=== PATIENT | male | born 1985 | race African-American/Black ===

== ENCOUNTER 2024-09-01 07:05 | Inpatient (IN) | payer MEDICARE, MEDICAID ==
[2024-09-01] VITALS (18 sets, daily range): BP systolic 106–149; BP diastolic 60–101; PULSE 82–130; RESP 18–24; TEMP 99.8–100; O2SAT 89–95
[~2024-09-01] VITALS: Ht 182.9 cm; Wt 126.1 kg
--- NOTE | 2024-09-01 07:24 | ED.PDOC ---
SOB-HPI HPI Comments 38Y M presents to ED via EMS for chief complaint SOB that began this morning. Additional symptom includes cough that has been present for a few days. When EMS arrived on scene, pt's O2 sat was 52% on RA but EMS believes there was an error as pt was behaving appropriately. Pt was placed on 15L/min of O2, provided one breathing treatment, and then placed on 8L/min of O2. Highest O2 sat EMS was able to obtain was 88%. Upon EMS examination, they noted respiratory wheezing and warm skin. Pt is tachycardic as well with HR 139. Chief Complaint: Shortness of Breath Time Seen by MD: 07:08 Primary Care Provider: unknown Reviewed notes: Manager Intensive Care Notes, Medications, Allergies Information Source: Patient, Relative (Mother), Emergency Med Personnel Mode of Arrival: EMS Brought in by: EMS Severity: Moderate Timing: Hours Duration: Since onset Context: At Rest PE Risk Factors: None History of: None Prehospital treatment: Breathing Tx, Oxygen Modifying Factors: Nothing Associated Signs and Symptoms: Other Past Medical History PAST MEDICAL HISTORY: Unknown Surgical History: Denies all surgeries Family History Family History: Unknown Social History Smoker: Non-Smoker Alcohol: Denies ETOH Use Drugs: Denies Drug Use Lives In: Home Constitutional: denies: chills, diaphoresis, fatigue, fever, malaise, sweats, weakness, others EENTM: denies: blurred vision, double vision, ear bleeding, ear discharge, ear drainage, ear pain, ear ringing, eye pain, eye redness, hearing loss, mouth pain, mouth swelling, nasal discharge, nose bleeding, nose congestion, nose pain, photophobia, tearing, throat pain, throat swelling, voice changes, others Respiratory: reports: cough, shortness of breath, wheezing; denies: hemoptysis, orthopnea, SOB at rest, SOB with excertion, stridor, others Cardiovascular: denies: chest pain, dizzy spells, diaphoresis, Dyspnea on exertion, edema, irregular heart beat, left arm pain, lightheadedness, palpitations, PND, syncope, others Gastrointestinal: denies: abdomen distended, abdominal pain, blood streaked bowels, constipated, diarrhea, dysphagia, difficulty swallowing, hematemesis, melena, nausea, poor appetite, poor fluid intake, rectal bleeding, rectal pain, vomiting, others Genitourinary: denies: burning, dysuria, flank pain, frequency, hematuria, incontinence, penile discharge, penile sore, pain, testicle pain, testicle swelling, urgency, others Neurological: denies: dizziness, fainting, headache, left sided numbness, left sided weakness, numbness, paresthesia, pre-existing deficit, right sided numbness, right sided weakness, seizure, speech problems, tingling, tremors, weakness, others Musculoskeletal: denies: back pain, gout, joint pain, joint swelling, muscle pain, muscle stiffness, neck pain, others Integumetry: denies: bruises, change in color, change in hair/nails, dryness, laceration, lesions, lumps, rash, wounds, others Allergic/Immunocompromised: denies: Difficulty Healing, Frequent Infections, Hives, Itching, others Hematologic/Lymphatic: denies: anemia, blood clots, easy bleeding, easy bruising, swollen glands, others Endocrine: denies: excessive hunger, excessive sweating, excessive thirst, excessive urination, flushing, intolerance to cold, intolerance to heat, unexplained weight gain, unexplained weight loss, others Psychiatric: denies: anxiety, bipolar disorder, depression, hopeless, panic disorder, schizophrenia, sleepless, suicidal, others All Other Systems: Reviewed and Negative Physical Exam General Appearance: Moderate Distress, Obese HEENT: Normal ENT Inspection, Pharynx Normal, TMs Normal Neck: Full Range of Motion, Non-Tender, Normal, Normal Inspection Respiratory: Accessory Muscle Use, Respiratory Distress, Other (Coarse breath sounds) Cardiovascular: No Edema, No JVD, No Murmur, No Gallop, Normal Peripheral Pulses, Tachycardia Breast Exam: Deferred Gastrointestinal: No Organomegaly, Non Tender, No Pulsatile Mass, Normal Bowel Sounds, Soft Genitalia: Deferred Pelvic: Deferred Rectal: Deferred Extremities: No calf tenderness, Normal capillary refill, Normal inspection, Normal range of motion, Non-tender, No pedal edema Musculoskeletal : Apperance: Normal Neurologic: Alert, surgical garment fitter II-XII nml as Tested, No Motor Deficits, Normal Affect, Normal Mood, No Sensory Deficits Cerebellar Function: NOT DONE Reflexes: NOT DONE Skin: Dry, Normal Color, Warm Peripheral Pulses: 3+ Radial (R), 3+ Radial (L) Lymphatic: No Adenopathy Was a procedure done? Was a procedure done?: Yes Sedation Sedation?: Yes Informed consent obtained: Yes Sedation start time: 12:40 Sedation end time: 12:55 Sedation total time: 15min Intubation Indication: Respiratory Insufficiency Prep: Preoxygenation Pretreated with: Analgesia, Sedation Medicated with: Vecuronium Intubation Approach: Orotracheal Intubation size: cm (8) Differential Dx Differential Diagnosis: Anxiety, Asthma, Bronchitis, CHF, COPD, Pneumonia, URI X-Ray, Labs, Meds, VS Vital Signs Date Time Temp Pulse Resp B/P (MAP) Pulse Ox O2 Delivery O2 Flow Rate FiO2 09/01/24 10:06 120/80 09/01/24 10:00 127/85 09/01/24 10:00 127/85 09/01/24 10:00 108 30 127/85 (99) 95 09/01/24 07:57 91 Non-Rebreather 15 91 91 09/01/24 07:55 99.8 131 30 112/55 (74) 91 99.8 09/01/24 07:45 112/55 09/01/24 07:32 22 95 Non-Rebreather 15 N/A 09/01/24 07:11 140 20 137/83 (101) 88 Lab Test 09/01/24 09:45 09/01/24 08:00 09/01/24 07:55 09/01/24 07:40 Range/Units Blood Gas Specimen Type Arterial Arterial Blood Gas Sample Site Right radial Left radial Blood Gas Patient Temperature 37.0 37.0 Arterial Blood Date Drawn [id number] Arterial Blood pH 7.331 L 7.272 L 7.350-7.450 Arterial Blood Partial Pressure CO2 64.3 *H 69.7 *H 35.0-48.0 mmHg Arterial Blood Partial Pressure O2 57.5 L 65.9 L 83.0-108.0 mmHg Arterial Blood HCO3 33.2 H 31.4 H 21.0-28.0 mmol/L Arterial Blood Oxygen Saturation 88.9 L 90.9 L 94.0-98.0 % Arterial Blood Base Excess 4.6 H 2.0 -2.0-3.0 mmol/L Arterial Blood Oxyhemoglobin 86.1 L 87.5 L 94.0-98.0 % Arterial Blood Carboxyhemoglobin 2.4 H 3.0 H 0.5-1.5 % Arterial Blood Methemoglobin 0.7 0.7 0.0-1.5 % Clinton Test Yes Yes Blood Gas Total Hemoglobin 17.50 16.70 13.5-17.5 g/dL Blood Gas Set Respiration Rate 12.0 Blood Gas Modality Mask - bipap Mask - simple FiO2 % 70.0 60.0 Blood Gas EPAP 7 Blood Gas IPAP 18 Blood Gas Critical Value Read Back Yes Yes Blood Gas Notified Whom Dr. adonay romero Blood Gas Notified Time [id number] Blood Gas Notified By Manager Net mickie vazquez Manager Net [facility] Influenza Type A Antigen Negative Negative Influenza Type B Antigen Negative Negative SARS-CoV-2 Antigen (Rapid) Negative NEGATIVE White Blood Count 8.1 4.4-10.8 10^3/uL Red Blood Count 5.17 4.5-5.90 10^6/uL Hemoglobin 15.9 13.5-17.5 g/dL Hematocrit 48.2 41.0-53.0 % Mean Corpuscular Volume 93.3 80.0-100.0 fL Mean Corpuscular Hemoglobin 30.8 28.0-32.0 pg Mean Corpuscular Hemoglobin Concent 33.0 32.0-36.0 g/dL Red Cell Distribution Width 14.5 H 11.8-14.3 % Platelet Count 174 140-450 10^3/uL Mean Platelet Volume 8.9 6.9-10.8 fL Neutrophils (%) (Auto) 68.8 37.0-80.0 % Lymphocytes (%) (Auto) 16.6 10.0-50.0 % Monocytes (%) (Auto) 14.1 H 0.0-12.0 % Eosinophils (%) (Auto) 0.2 0.0-7.0 % Basophils (%) (Auto) 0.3 0.0-2.0 % Neutrophils # (Auto) 5.6 1.6-8.6 10 ^3/uL Lymphocytes # (Auto) 1.3 0.4-5.4 10 ^3/uL Monocytes # (Auto) 1.1 0-1.3 10 ^3/uL Eosinophils # (Auto) 0 0-0.8 10 ^3/uL Basophils # (Auto) 0 0-0.2 10 ^3/uL Nucleated Red Blood Cells 0.1 % Sodium Level 136 136-145 mmol/L Potassium Level 3.9 3.5-5.1 mmol/L Chloride Level 100 98-107 mmol/L Carbon Dioxide Level 31 20-31 mmol/L Anion Gap 5 5-15 Blood Urea Nitrogen 6 L 9-23 mg/dL Creatinine 1.12 0.700-1.30 mg/dL Glomerular Filtration Rate Calc 87 >90 mL/min BUN/Creatinine Ratio 5.4 L 10.0-20.0 Serum Glucose 130 H 74-106 mg/dL Calcium Level 8.7 8.7-10.4 mg/dL B-Type Natriuretic Peptide 11.17 0-100 pg/mL Blood Gas Liter Flow 8.00 Current Medications Medications (Trade) Dose Ordered Sig/Felicitas Route Start Time Stop Time Status Last Admin Methylprednisolone Sodium Succinate (Solu Medrol) 125 mg ONCE ONCE IV 09/01/24 07:30 09/01/24 07:31 DC 09/01/24 07:45 Furosemide (Lasix Injection) 40 mg ONCE ONCE IV 09/01/24 07:30 09/01/24 07:31 DC 09/01/24 07:45 Albuterol (Ventolin Medneb) 5 mg ONCE ONCE NEB 09/01/24 07:30 09/01/24 07:31 DC 09/01/24 07:32 Ipratropium [place] (Atrovent Medneb) 0.5 mg ONCE ONCE NEB 09/01/24 07:30 09/01/24 07:31 DC 09/01/24 07:32 Ceftriaxone Sodium 50 ml @ 100 mls/hr ONCE ONCE IV 09/01/24 07:45 09/01/24 08:14 DC 09/01/24 07:45 Azithromycin 250 ml @ 125 mls/hr ONCE ONCE IV 09/01/24 07:45 09/01/24 09:44 DC 09/01/24 07:[address] [address] Ph: [phone] DIAGNOSTIC IMAGING Diagnostic Imaging Report : [id number] Signed PATIENT: MAGGIE MOFFETT DACCT: [id number] UNIT: [id number] : 1985 LOC: ER ROOM / BED: / AGE / SEX: 38 / M ADM STATUS: REG ER SERVICE 8 ORDERING PHYSICIAN: ÁNGEL ROMERO MD PROCEDURE(s): CXRP - CHEST PORTABLE REASON: sob ORDER NUMBER(s): [id number], ACCESSION NUMBER(s): [id number] CHEST RADIOGRAPH Indication: sob Technique: Single frontal view of the chest was obtained Comparison: None FINDINGS: Lines and Tubes: None Lungs: Right basilar opacity. Prominent interstitial opacities. Pleura: No effusion. No pneumothorax. Cardiomediastinal contours: Unremarkable Bones: No acute osseous abnormality. IMPRESSION: Patchy right basilar opacity which may represent atelectasis or pneumonia. Bilateral interstitial opacities which may reflect pulmonary congestion. ATED BY: LEE OAKLEY MD DICTATED DATE/TIME: 09/01/24924 SIGNED BY: LEE OAKLEY MD SIGNED DATE/TIME: 09/01/24924 CC: Patient alert. Complaining of shortness a breath. Placed on oxygen. Tachycardia. Using accessory muscles. Difficult get a history from the patient. Possible inflammation of the lungs causing shortness of breath. Was given steroid. Was given Lasix. Reviewed his history. Explained to the patient. Continue cardiac monitoring. Time of 1ST Reevaluation: 07:38 Reevaluation 1ST: Unchanged Patient Education/Counseling: Diagnosis, Treatment Family Education/Counseling: No Family Present Additional Information The following tests were ordered, and results were reviewed by me: CBC, BMP, BNP, CXR, ABG Additional Information was gathered from interviewing the following independent historians: EMS, mother I reviewed and agreed with the following test results read by other providers: CXR I discussed treatment and results with medical personnel and hospitalist. Departure 1 Departure Time of Disposition: 07:33 Impression: Primary Impression: Acute respiratory failure Qualified Codes: J96.01 - Acute respiratory failure with hypoxia Additional Impression: Pneumonitis Disposition: ADMITTED INPATIENT Admit to: Med Surg Condition: Guarded Critical Care Note Critical Care Time?: Yes (90 min-critical care time only) Stability Stability form required: No Heart Score Heart Score: Heart Score Response (Comments) Value History N/A 0 EKG N/A 0 Age N/A 0 Risk Factors N/A 0 Troponin N/A 0 Total 0 I personally scribed for ÁNGEL ROMERO MD ([email or web address]) on 09/01/24 at 07:24. Electronically submitted by Maria A Peter ([facility]). I personally scribed for ÁNGEL ROMERO MD ([email or web address]) on 09/01/24 at 07:42. Electronically submitted by Maria A Peter ([facility]). I personally scribed for ÁNGEL ROMERO MD ([email or web address]) on 09/01/24 at 09:03. Electronically submitted by Maria A Peter ([facility]). I personally scribed for ÁNGEL ROMERO MD ([email or web address]) on 09/01/24 at 09:34. Electronically submitted by Maria A Peter ([facility]). ÁNGEL ROMERO MD Sep 01, 2024 07:24
[2024-09-01] MEDS: IPRATROPIUM BROM 0.5 MG/2.5ML INH SOL NEB ONE (07:32)
[2024-09-01] MEDS: ALBUTEROL SULF 2.5 MG/0.5ML(0.5%) NEB SOLN NEB ONE (07:32)
[2024-09-01] MEDS: FUROSEMIDE 40 MG/4 ML VIAL IV ONE (07:45)
[2024-09-01] MEDS: cefTRIAXone 1GM/50ML D5W 50 ML IV ONE (07:45)
[2024-09-01] MEDS: AZITHROMYCIN 500MG/ 250ML 250 ML IV ONE (07:45)
[2024-09-01] MEDS: methylPREDNISolone SOD SUCC 125 MG/2 ML VL IV ONE (07:45)
[2024-09-01 08:16] LABS: Basophils # (auto) 0 10 ^3/uL (0-0.2); Basophils % (auto) 0.3 % (0.0-2.0); Eosinophils # (auto) 0 10 ^3/uL (0-0.8); Eosinophils % (auto) 0.2 % (0.0-7.0); Hematocrit 48.2 % (41.0-53.0); Hemoglobin 15.9 g/dL (13.5-17.5); Lymphocytes # (auto) 1.3 10 ^3/uL (0.4-5.4); Lymphocytes % (auto) 16.6 % (10.0-50.0); Mean Corpuscular Hemoglobin 30.8 pg (28.0-32.0); Mean Corpuscular Volume 93.3 fL (80.0-100.0); Monocytes # (auto) 1.1 10 ^3/uL (0-1.3); Monocytes % (auto) 14.1 % (0.0-12.0); Neutrophils # (auto) 5.6 10 ^3/uL (1.6-8.6); Neutrophils % (auto) 68.8 % (37.0-80.0); Nucleated Red Blood Cells % 0.1 %; Platelet Count (auto) 174 10^3/uL (140-450); Red Blood Cells 5.17 10^6/uL (4.5-5.90); Red Cell Distribution Width 14.5 % (11.8-14.3); White Blood Cell 8.1 10^3/uL (4.4-10.8)
[2024-09-01 08:19] LABS: Chloride 100 mmol/L (98-107); Potassium 3.9 mmol/L (3.5-5.1); Sodium 136 mmol/L (136-145)
[2024-09-01 08:20] LABS: Anion Gap 5 (5-15); Calcium 8.7 mg/dL (8.7-10.4)
[2024-09-01 08:36] LABS: Glucose 130 mg/dL (74-106)
[2024-09-01 08:38] LABS: Carbon Dioxide 31 mmol/L (20-31)
[2024-09-01 08:52] LABS: COVID19 ANTIGEN SOFIA FIA NEGATIVE (NEGATIVE); Rapid Influenza A Negative (Negative); Rapid Influenza B Negative (Negative)
[2024-09-01 09:03] LABS: BUN/Creatinine Ratio 5.4 (10.0-20.0); Blood Urea Nitrogen 6 mg/dL (9-23)
--- NOTE | 2024-09-01 09:28 | DVH ---
CHEST RADIOGRAPH Indication: sob Technique: Single frontal view of the chest was obtained Comparison: None FINDINGS: Lines and Tubes: None Lungs: Right basilar opacity. Prominent interstitial opacities. Pleura: No effusion. No pneumothorax. Cardiomediastinal contours: Unremarkable Bones: No acute osseous abnormality. IMPRESSION: Patchy right basilar opacity which may represent atelectasis or pneumonia. Bilateral interstitial opacities which may reflect pulmonary congestion.
[2024-09-01] MEDS: ROCURONIUM 10MG/ML 10ML VIAL IV ONE ×2 (10:00→14:18)
[2024-09-01] MEDS: MIDAZOLAM DRIP 50 mg/50mL 50 ML IV SCH ×2 (10:00→14:19)
[2024-09-01] MEDS: ETOMIDATE (2MG/ML) 20ML VIAL IV ONE ×3 (10:00→14:18)
[2024-09-01] MEDS: MIDAZOLAM DRIP 50 mg/50mL 50 ML IV ONE (10:06)
[2024-09-01] MEDS ORDERED: ONDANSETRON HCL 4 MG/2 ML VIAL IV PRN (10:30)
[2024-09-01] MEDS ORDERED: NITROGLYCERIN 0.4 MG SL TAB SL PRN (10:30)
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
[2024-09-01] MEDS: IOHEXOL 350 MG/ML 100ML IJ ONE (10:41)
[2024-09-01 11:06] LABS: Base Excess 4.6 mmol/L (-2.0-3.0)
[2024-09-01 11:16] LABS: Alanine Aminotransferase 28 U/L (7-40); Albumin 4.7 g/dL (3.2-4.8); Alkaline Phosphatase 107 U/L (46-116); Anion Gap 6 (5-15); Aspartate Aminotransferase 35 U/L (13-40); BUN/Creatinine Ratio 5.2 (10.0-20.0); Bilirubin, Total 0.3 mg/dL (0.2-1.0); Calcium 9.1 mg/dL (8.7-10.4); Carbon Dioxide 31 mmol/L (20-31); Chloride 99 mmol/L (98-107); Potassium 4.2 mmol/L (3.5-5.1); Sodium 136 mmol/L (136-145)
[2024-09-01 11:19] LABS: Blood Urea Nitrogen 6 mg/dL (9-23); Glucose 119 mg/dL (74-106)
[2024-09-01 11:25] LABS: INR 1.15 (0.9-1.15); Prothrombin Time 12.1 sec (9.3-11.8)
[2024-09-01] MEDS: fentaNYL Drip 2500mCg/250mlNS 250 ML IV ONE (13:19)
[2024-09-01] MEDS: fentaNYL Drip 2500mCg/250mlNS 250 ML IV SCH (13:47)
[2024-09-01] MEDS: IPRATROPIUM BROM 0.5 MG/2.5ML INH SOL NEB SCH (14:00)
[2024-09-01] MEDS: ALBUTEROL SULF 2.5 MG/0.5ML(0.5%) NEB SOLN NEB SCH (14:00)
[2024-09-01] MEDS: methylPREDNISolone SOD SUCC 40 MG/ML VL IV SCH (14:24)
[2024-09-01 15:13] LABS: Base Excess 4.9 mmol/L (-2.0-3.0)
--- NOTE | 2024-09-01 15:34 | DVH ---
CHEST RADIOGRAPH Indication: Central line, post intubation, NG placement Technique: Single frontal view of the chest was obtained Comparison: XY CHEST PORTABLE on DOS: 09/01/24 FINDINGS: Lines and Tubes: Endotracheal tube in place 1.9 cm above the alf. Right internal jugular catheter in place in the superior vena cava. Enteric tube below the left diaphragm Lungs: Bibasilar areas of infiltrate and small pleural effusions. Pleura: No effusion. No pneumothorax. Cardiomediastinal contours: Unremarkable Bones: No acute osseous abnormality. IMPRESSION: 1. Endotracheal tube 1.9 cm above the alf. 2. Enteric tube below the left diaphragm 3. Right internal jugular catheter in the superior vena cava. 4. Bibasilar infiltrates and small pleural effusions worse than earlier study of 09/01 2024 at 9:04 a .m..
[2024-09-01] MEDS ORDERED: VANCOMYCIN PER PHARMACY 0 MG IV SCH (15:45)
[2024-09-01] MEDS: PIPERACILLIN-TAZOB 3.375GM 100 ML IV ONE (16:04)
[2024-09-01 16:07] LABS: Base Excess 1.4 mmol/L (-2.0-3.0)
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
[2024-09-01] MEDS ORDERED: PIPERACILLIN-TAZOB 3.375GM 100 ML IV SCH (18:00)
--- NOTE | 2024-09-01 19:11 | DVHINCON2 ---
Date of service: Sep 01, 2024 Referring Physician ANAHI Montoya Reason for Consultation Ventilator management History of Present Illness 38-year-old man history of morbid obesity who presented with shortness of breath. He was tachycardic with heart rate of 139. And had bilateral respiratory wheezing. Initially EMS found to be hypoxic on the scene with a pulse oximetry reading of 52%. He later was placed on 8 liters/minute via mask after bronchodilator treatment. He was found to be retaining CO2. He had to be intubated and placed on mechanical ventilator. Pulmonary consultation is called due to acute hypercarbic respiratory failure on mechanical ventilator management. Review of systems: Unable to obtain due to patient's critical condition. Past medical history: Morbid obesity with a BMI of 44.8 Past surgical history: No prior surgeries. Medications: Reviewed Allergies: No known drug allergies. Family history: None mentioned of premature CAD. No family history of lung disease. Social history: Nonsmoker. No alcohol or illicit drug use. Lives at home. Allergies: Coded Allergies: NO KNOWN ALLERGIES (Unverified , 09/01/24) Current Medications Current Medications Medications (Trade) Dose Ordered Sig/Felicitas Route PRN Reason Start Time Stop Time Status Last Admin Midazolam HCl 50 ml @ 1 mls/hr Q24H IV 09/01/24 10:00 09/01/24 14:15 DC Albuterol (Ventolin Medneb) 2.5 mg Q4HR NEB 09/01/24 14:00 09/01/24 18:35 Ipratropium [place] (Atrovent Medneb) 0.5 mg Q4HR NEB 09/01/24 14:00 09/01/24 18:34 Methylprednisolone Sodium Succinate (Solu Medrol) 40 mg Q8HR IV 09/01/24 14:00 09/01/24 14:24 Ondansetron HCl (Zofran) 4 mg Q4HP PRN IV NAUSEA / VOMITING 09/01/24 10:30 Enoxaparin Sodium (Lovenox) 40 mg DAILY SC 09/02/24 10:00 Nitroglycerin (Ntrostat Sublingual) 0.4 mg Q5MINP PRN SL FOR CHEST PAIN 09/01/24 10:30 Fentanyl Citrate 250 ml @ 2.5 mls/hr Q24H IV 09/01/24 13:30 09/01/24 13:47 Midazolam HCl 50 ml @ 1 mls/hr Q24H IV 09/01/24 14:00 09/01/24 14:19 Vancomycin HCl 0 ml @ 0 mls/hr UD IV 09/01/24 15:45 Piperacillin Sod/ Tazobactam Sod 100 ml @ 25 mls/hr Q6HR IV 09/01/24 18:00 UNV Piperacillin Sod/ Tazobactam Sod 100 ml @ 25 mls/hr Q6H IV 09/01/24 22:00 Vancomycin HCl 350 ml @ 200 mls/hr Q12H IV 09/01/24 20:00 Vital Signs Vital Signs Date Time Temp Pulse Resp B/P (MAP) Pulse Ox O2 Delivery O2 Flow Rate FiO2 09/01/24 19:00 98 20 107/67 (80) 93 09/01/24 15:26 80 09/01/24 15:11 98.1 98.1 09/01/24 11:09 Facial BiPAP Mask 09/01/24 07:57 15 Physical Exam Gen.: Patient lying in bed in medical ICU. Sedated, intubated on mechanical ventilator. Head: Normocephalic, atraumatic. Eyes: PERRLA. Ears: Normal external anatomy. Throat: Endotracheal tube and orogastric tube in place. Neck: Supple, trachea midline. Chest: Transmitted breath sounds bilaterally. Decreased air entry bilaterally. No wheezing. Bibasilar crackles. Cardio vascular: Positive S1, positive S2. Regular rate and rhythm. Abdomen: Positive bowel sounds in all 4 quadrants. Soft, nontender, nondistended. : Spence in place. Normal external genitalia. Rectal: Deferred Skin: Warm, dry. Intact. Extremities: 2+ radial pulses bilaterally. No lower extremity edema. Neuro: Sedated. Labs/Diagnostic Data Labs Test 09/01/24 15:33 09/01/24 15:10 09/01/24 12:15 09/01/24 10:48 Range/Units Troponin I High Sensitivity 65 *H </=54 ng/L Blood Gas Specimen Type Arterial Blood Gas Sample Site Right radial Blood Gas Patient Temperature 37.0 Arterial Blood Date Drawn [id number] Arterial Blood pH 7.278 L 7.350-7.450 Arterial Blood Partial Pressure CO2 67.0 *H 35.0-48.0 mmHg Arterial Blood Partial Pressure O2 69.1 L 83.0-108.0 mmHg Arterial Blood HCO3 30.6 H 21.0-28.0 mmol/L Arterial Blood Oxygen Saturation 92.3 L 94.0-98.0 % Arterial Blood Base Excess 1.4 -2.0-3.0 mmol/L Arterial Blood Oxyhemoglobin 90.6 L 94.0-98.0 % Arterial Blood Carboxyhemoglobin 1.1 0.5-1.5 % Arterial Blood Methemoglobin 0.7 0.0-1.5 % [place] Test Modified Blood Gas Total Hemoglobin 17.60 H 13.5-17.5 g/dL Blood Gas Set Respiration Rate 20.0 Blood Gas Modality Vent - ac FiO2 % 100.0 Blood Gas Tidal Volume 550.0 Blood Gas PEEP or CPAP 5.0 Blood Gas Critical Value Read Back Yes Blood Gas Notified Whom Dr. adonay romero Blood Gas Notified Time [id number] Blood Gas Notified [facility] Blood Gas EPAP 7 Blood Gas IPAP 18 Prothrombin Time 12.1 H 9.3-11.8 sec Prothrombin Time INR 1.15 0.9-1.15 Sodium Level 136 136-145 mmol/L Potassium Level 4.2 3.5-5.1 mmol/L Chloride Level 99 98-107 mmol/L Carbon Dioxide Level 31 20-31 mmol/L Anion Gap 6 5-15 Blood Urea Nitrogen 6 L 9-23 mg/dL Creatinine 1.15 0.700-1.30 mg/dL Glomerular Filtration Rate Calc 85 >90 mL/min BUN/Creatinine Ratio 5.2 L 10.0-20.0 Serum Glucose 119 H 74-106 mg/dL Lactic Acid Level 1.1 0.4-2.0 mmol/L Calcium Level 9.1 8.7-10.4 mg/dL Magnesium Level 1.8 1.6-2.6 mg/dL Total Bilirubin 0.3 0.2-1.0 mg/dL Aspartate Amino Transferase (AST) 35 13-40 U/L Alanine Aminotransferase (ALT) 28 7-40 U/L Alkaline Phosphatase 107 46-116 U/L Total Protein 8.0 5.7-8.2 g/dL Albumin 4.7 3.2-4.8 g/dL Test 09/01/24 08:00 09/01/24 07:55 09/01/24 07:40 Range/Units Influenza Type A Antigen Negative Negative Influenza Type B Antigen Negative Negative SARS-CoV-2 Antigen (Rapid) Negative NEGATIVE White Blood Count 8.1 4.4-10.8 10^3/uL Red Blood Count 5.17 4.5-5.90 10^6/uL Hemoglobin 15.9 13.5-17.5 g/dL Hematocrit 48.2 41.0-53.0 % Mean Corpuscular Volume 93.3 80.0-100.0 fL Mean Corpuscular Hemoglobin 30.8 28.0-32.0 pg Mean Corpuscular Hemoglobin Concent 33.0 32.0-36.0 g/dL Red Cell Distribution Width 14.5 H 11.8-14.3 % Platelet Count 174 140-450 10^3/uL Mean Platelet Volume 8.9 6.9-10.8 fL Neutrophils (%) (Auto) 68.8 37.0-80.0 % Lymphocytes (%) (Auto) 16.6 10.0-50.0 % Monocytes (%) (Auto) 14.1 H 0.0-12.0 % Eosinophils (%) (Auto) 0.2 0.0-7.0 % Basophils (%) (Auto) 0.3 0.0-2.0 % Neutrophils # (Auto) 5.6 1.6-8.6 10 ^3/uL Lymphocytes # (Auto) 1.3 0.4-5.4 10 ^3/uL Monocytes # (Auto) 1.1 0-1.3 10 ^3/uL Eosinophils # (Auto) 0 0-0.8 10 ^3/uL Basophils # (Auto) 0 0-0.2 10 ^3/uL Nucleated Red Blood Cells 0.1 % B-Type Natriuretic Peptide 11.17 0-100 pg/mL Blood Gas Liter Flow 8.00 Assessment Impression: Acute hypoxic respiratory failure Acute hypercarbic respiratory failure On mechanical ventilator Pleural effusions Atelectasis Morbid obesity with a BMI of 44.8 Pulmonary edema Acute exacerbation of COPD vs Asthma Elevated troponin Plan: s/p intubation on mechanical ventilator COVID, influenza negative. CXR image and report reviewed. Endotracheal tube in place. Devices in place. Bibasilar opacities. Small pleural effusions. Atelectasis ABG reviewed. Acidemia due To CO2 retention. Recommend to obtain chest ultrasound to evaluate pleural effusions amenable for thoracentesis. On assist control with respiratory rate of 20, tidal volume 650, peep of five, FiO2 at 100%. We will obtain a stat ABG and make further changes based on ABG results. Titrate FIO2 to keep O2 saturation between 88-94%. VAP bundle Daily ABG and CXR while intubated. Sedate for ventilatory synchrony Bronchodilators IV Steroids Start pressors if necessary for hemodynamic support. On pressors for hemodynamic support. Titrate to keep MAP above 65 mmHg/SBP above 90 mmHg. F/u Echo to evaluate LVEF, RVSP and r/o valvular dysfunction. F/u Cardiology recommendations Plan for CTA of chest to r/o PE. Continue antibiotics. Zosyn/Vancomycin F/u cultures. Monitor renal function due to Acute kidney injury. Monitor electrolytes. Supplement as necessary. Nutritional support. Accucheks, ISS. Morbid obesity, complicates all care. Diet and lifestyle modifications for weight reduction recommended. GI/DVT prophylaxis. Condition: Critical Prognosis: Poor given multiple comorbidities. Rest of plan per hospitalist and other consultants. A total of 36 minutes of critical care time was spent reviewing the patient record, examining the patient, making a diagnostic and therapeutic plan, discussing this plan with the medical personnel, following up on diagnostic studies and following the patient for clinical stability excluding any and all procedures. At least 50% of this time was spent in direct, [id number] contact. Thank you ANAHI Montoya for allowing me to participate in this patient's care. Further recommendations will depend on patient's clinical course. Please do not hesitate to contact me if you have any questions or concerns. This medical document was created using an electronic medical record system with [email or web address] dictation system. Although this document has been carefully reviewed, there may still be some phonetic and typographical errors. These areas are purely typographical due to imperfections of the software programs, and do not reflect any compromise in the patient's medical care. Plan discussed with: Other (RN, RT, DE ICER INSTALLER) LIZ GUDINO MD Sep 01, 2024 19:11
[2024-09-01 19:28] LABS: Base Excess 5.6 mmol/L (-2.0-3.0)
--- NOTE | 2024-09-01 19:33 | DVH ---
Bilateral Chest Sonogram Date: 09/01/2024 07:13 PM Clinical history: eval if pleural effusion amenable to thoracentesis. Images submitted: 2 Findings: Trace right pleural effusion. No left pleural effusion. IMPRESSION: Trace right pleural effusion .
[2024-09-01] MEDS: VANCOMYCIN 1.75GM/350ML 350 ML IV SCH (20:21)
[2024-09-01] MEDS: PIPERACILLIN-TAZOB 3.375GM 100 ML IV SCH (22:16)
[2024-09-02] VITALS (67 sets, daily range): BP systolic 89–128; BP diastolic 52–77; PULSE 65–83; RESP 20; TEMP 97.7–98.6; O2SAT 88–94
[2024-09-02 03:13] LABS: Basophils # (auto) 0 10 ^3/uL (0-0.2); Basophils % (auto) 0.1 % (0.0-2.0); Eosinophils # (auto) 0 10 ^3/uL (0-0.8); Hematocrit 47.7 % (41.0-53.0); Lymphocytes # (auto) 0.6 10 ^3/uL (0.4-5.4); Mean Corpuscular Hemoglobin 31.1 pg (28.0-32.0); Mean Corpuscular Hgb Conc. 33.6 g/dL (32.0-36.0); Mean Corpuscular Volume 92.5 fL (80.0-100.0); Monocytes # (auto) 0.6 10 ^3/uL (0-1.3); Neutrophils # (auto) 13.6 10 ^3/uL (1.6-8.6); Neutrophils % (auto) 91.9 % (37.0-80.0); Nucleated Red Blood Cells % 0.1 %; Platelet Count (auto) 191 10^3/uL (140-450); Red Blood Cells 5.15 10^6/uL (4.5-5.90); Red Cell Distribution Width 14.2 % (11.8-14.3); White Blood Cell 14.8 10^3/uL (4.4-10.8)
[2024-09-02 03:28] LABS: Alanine Aminotransferase 21 U/L (7-40); Albumin 4.2 g/dL (3.2-4.8); Alkaline Phosphatase 94 U/L (46-116); Anion Gap 7 (5-15); Aspartate Aminotransferase 28 U/L (13-40); Calcium 8.9 mg/dL (8.7-10.4); Carbon Dioxide 28 mmol/L (20-31); Chloride 100 mmol/L (98-107); Potassium 3.7 mmol/L (3.5-5.1)
[2024-09-02 03:29] LABS: Bilirubin, Total 0.4 mg/dL (0.2-1.0); Glucose 168 mg/dL (74-106); Sodium 135 mmol/L (136-145); Total Protein 7.2 g/dL (5.7-8.2)
[2024-09-02 04:20] LABS: BUN/Creatinine Ratio 9.9 (10.0-20.0); Blood Urea Nitrogen 14 mg/dL (9-23)
--- NOTE | 2024-09-02 06:21 | DVH ---
CHEST RADIOGRAPH Indication: post intubation cxr Technique: Single frontal view of the chest was obtained Comparison: XY CHEST XRAY 1 VIEW on DOS: 09/01/24, XY CHEST PORTABLE on DOS: 09/01/24 FINDINGS: Lines and Tubes: There is a right central venous catheter with tip terminating in the superior vena c urmila. The endotracheal tube terminates above alf. The enteric tube courses below the left hemidiaph ragm and the tip extends outside the field of view. Lungs: Bilateral airspace consolidations, decreased. Pleura: Bilateral pleural effusions. Decreased. No pneumothorax. Cardiomediastinal contours: Unremarkable Bones: No acute osseous abnormality. IMPRESSION: 1. Bilateral pleural effusions and airspace consolidation decreased since prior study.
[2024-09-02] MEDS: ENOXAPARIN SOD 40 MG/0.4 ML SYRINGE SC SCH (09:35)
--- NOTE | 2024-09-02 11:34 | DVHPN2 ---
Consult Progress Note Date Seen: Sep 02, 2024 Subjective Other Systems: No overnight cardiac events reported Objective vital signs Vital Sign Date Time Temp Pulse Resp B/P (MAP) Pulse Ox O2 Delivery O2 Flow Rate FiO2 09/02/24 10:33 75 20 127/70 (89) 91 100 09/02/24 08:00 Mechanical Ventilator+ 09/02/24 04:00 98.1 98.1 09/01/24 07:57 15 Total Intake and Output 09/01/24 09/01/24 09/02/24 15:00 23:00 07:00 Intake Total 75 ml 850 ml 450 ml Output Total 500 ml 1100 ml Balance -425 ml 850 ml -650 ml medications Current Medications Medications Dose Ordered Sig/Felicitas Route Start Time Stop Time Status Last Admin Dose Admin Albuterol 2.5 mg Q4HR NEB 09/01/24 14:00 09/02/24 10:28 2.5 MG Ipratropium [place] 0.5 mg Q4HR NEB 09/01/24 14:00 09/02/24 10:28 0.5 MG Methylprednisolone Sodium Succinate 40 mg Q8HR IV 09/01/24 14:00 09/02/24 05:08 40 MG Ondansetron HCl 4 mg Q4HP PRN IV 09/01/24 10:30 Enoxaparin Sodium 40 mg DAILY SC 09/02/24 10:00 09/02/24 09:35 40 MG Nitroglycerin 0.4 mg Q5MINP PRN SL 09/01/24 10:30 Fentanyl Citrate 250 ml @ 2.5 mls/hr Q24H IV 09/01/24 13:30 09/01/24 13:47 2.5 MLS/HR Midazolam HCl 50 ml @ 1 mls/hr Q24H IV 09/01/24 14:00 09/02/24 09:23 15 MLS/HR Vancomycin HCl 0 ml @ 0 mls/hr UD IV 09/01/24 15:45 Piperacillin Sod/ Tazobactam Sod 100 ml @ 25 mls/hr Q6HR IV 09/01/24 18:00 UNV Piperacillin Sod/ Tazobactam Sod 100 ml @ 25 mls/hr Q6H IV 09/01/24 22:00 09/02/24 09:35 25 MLS/HR Vancomycin HCl 350 ml @ 200 mls/hr Q12H IV 09/01/24 20:00 09/01/24 20:21 200 MLS/HR Examination: LUNGS:Abnormal (Mechanically ventilated 100% FiO2), CVS:Normal (NSR. Off pressors), NEURO:Abnormal (Chemically sedated) laboratory and microbiology Laboratory Tests 09/02/24 02:27 Test 09/02/24 02:27 Range/Units Serum Glucose 168 H 74-106 mg/dL Problem List/Assessment/Plan Problem List/Assessment/Plan Sepsis with bilateral pneumonia Acute hypoxic respiratory failure secondary to above Asthma Schizophrenia Morbid obesity Plan/Recommendation (Dr. Vee) Echocardiogram revealed EF 55% with normal diastolic function. Continue Pulmonology and primary care team recommendations. We will sign off at this time. Please call if in need to re-consult. Thank you for allowing us to participate in this patient's care. This medical document was created using an electronic medical record system with voice recognition software and computerized dictation system. Although this document has been carefully reviewed, there might still be some phonetic and typographical errors. Occasional wrong-word or ``sound-alike substitutions may have occurred due to the inherent limitations of voice recognition software. These areas are purely typographical due to imperfections of the software programs and do not reflect any compromise in the patient's medical care. Please read the chart carefully and recognize, using context, where these substitutions have occurred. Plan discussed with: Other Date of Service: Sep 02, 2024 Billing Provider: AMILCAR VEE MD Cardiology Common Codes: [id number] INP/OBS CARE(Mod) PRIYANKA TRAN [facility] Sep 02, 2024 11:34
[2024-09-02 11:55] LABS: Base Excess 1.8 mmol/L (-2.0-3.0)
[2024-09-02] MEDS: FUROSEMIDE 40 MG/4 ML VIAL IV ONE (12:28)
[2024-09-02] MEDS: PROPOFOL 100 ML IV ONE (12:37)
[2024-09-02] MEDS: PROPOFOL 100 ML IV SCH (12:45)
[2024-09-02] MEDS: NOREPINEPHRINE 8 MG/250ML KIT 250 ML IV SCH (13:00)
[2024-09-02] MEDS: NOREPINEPHRINE 8 MG/250ML KIT 250 ML IV ONE (13:21)
--- NOTE | 2024-09-02 14:03 | DVH ---
BILATERAL LOWER EXTREMITY VENOUS DOPPLER CLINICAL HISTORY: rule out DVT Technique: Duplex Doppler evaluation of the deep venous systems of both lower extremities from the co mmon femoral veins to the popliteal veins including color Doppler and spectral/pulsed waveform analys is was performed. COMPARISON: None FINDINGS: The right and left common femoral, superficial femoral, popliteal, posterior tibial and peroneal vei ns appear patent with normal augmentation, phasicity, compressibility and color-flow. IMPRESSION: 1. There is no sonographic evidence for DVT in the lower extremities. HS:Y
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
[2024-09-02 14:25] LABS: Erythrocyte Sedimentation Rate 5 mm/hr (0-20)
--- NOTE | 2024-09-02 17:42 | DVHSR ---
APPROVED REPORT EXAM: Two-dimensional and M-mode echocardiogram with Doppler and color Doppler. Blood Pressure: 119/66 mmHg INDICATION Eval for cardiac function and ef RISK FACTORS Obesity: Height: 6', Weight: 330 DIMENSIONS LVDd4.5 (3.8-5.7cm)LA (2D)3.8 (1.9-4.0cm)Aortic Root3.3 (2.0-3.7cm) LVDs3.2 (2.5-4.0cm)LA (MM) (1.9-4.0cm)Aortic Cusp Exc2.0 (1.5-2.0cm) EF (%) 55.0 (55-70%)Rt. Atrium3.9 (1.9-4.0cm)Asc. Aorta cm IVSd1.1 (0.7-1.1cm)RV (D) (1.8-2.4cm) PWd1.1 (0.7-1.1cm) Mitral Valve MitralMitral Stenosis E wave0.60m/sMV Mean GR.mmHg A wave0.40m/sMV Peak GR.mmHg E/A ratio1.52D MVAcm2 Aortic Valve Aortic ValveAortic Stenosis V10.90m/[place] Mean GR.4mmHg V21.30m/[place] Peak GR.8mmHg LVOT Diameter2.2 (1.8-2.4cm)Doppler AVA2.63cm2 Pulmonic Valve V20.70m/s Conclusion Normal left ventricular size and dimension. Normal left ventricular systolic function estimated ejec tion fraction 55%. Normal diastolic function Normal right ventricular size and dimension. Normal right ventricular systolic function. Normal biatrial size and dimension. Normal aortic valve structure and function. Normal mitral valve structure and function. Normal tricuspid valve structure and function. The pulmonary valve is grossly normal. No pericardial effusion.
--- NOTE | 2024-09-02 18:25 | DVHPN2 ---
Progress Note - Dictate Date Seen: Sep 02, 2024 Medical Necessity Reason Pt with a Central, PICC or Fol: Yes The following are medically ne: Teague Catheter Reason for teague catheter: Strict I&O Subjective Patient seen and examined at bedside. Sedated, intubated on mechanical ventilator. Overnight events reviewed. vital signs Vital Sign Date Time Temp Pulse Resp B/P (MAP) Pulse Ox O2 Delivery O2 Flow Rate FiO2 09/02/24 17:00 75 20 114/60 (78) 93 09/02/24 16:30 Mechanical Ventilator+ 100 100 09/02/24 16:00 98.4 98.4 09/01/24 07:57 15 Total Intake and Output 09/01/24 09/01/24 09/02/24 15:00 23:00 07:00 Intake Total 75 ml 850 ml 500 ml Output Total 500 ml 1100 ml Balance -425 ml 850 ml -600 ml medications Current Medications Medications Dose Ordered Sig/Felicitas Route Start Time Stop Time Status Last Admin Dose Admin Albuterol 2.5 mg Q4HR NEB 09/01/24 14:00 09/02/24 14:20 2.5 MG Ipratropium [place] 0.5 mg Q4HR NEB 09/01/24 14:00 09/02/24 14:20 0.5 MG Methylprednisolone Sodium Succinate 40 mg Q8HR IV 09/01/24 14:00 09/02/24 13:51 40 MG Ondansetron HCl 4 mg Q4HP PRN IV 09/01/24 10:30 Nitroglycerin 0.4 mg Q5MINP PRN SL 09/01/24 10:30 Fentanyl Citrate 250 ml @ 2.5 mls/hr Q24H IV 09/01/24 13:30 09/02/24 10:00 35 MLS/HR Midazolam HCl 50 ml @ 1 mls/hr Q24H IV 09/01/24 14:00 09/02/24 15:45 15 MLS/HR Vancomycin HCl 0 ml @ 0 mls/hr UD IV 09/01/24 15:45 Piperacillin Sod/ Tazobactam Sod 100 ml @ 25 mls/hr Q6HR IV 09/01/24 18:00 UNV Piperacillin Sod/ Tazobactam Sod 100 ml @ 25 mls/hr Q6H IV 09/01/24 22:00 09/02/24 16:46 25 MLS/HR Enoxaparin Sodium 150 mg Q12HR SC 09/02/24 22:00 Propofol 100 ml @ 4.5 mls/hr [id number] IV 09/02/24 13:00 09/02/24 12:45 4.5 MLS/HR Norepinephrine Bitartrate 250 ml @ 3.75 mls/hr Q24H IV 09/02/24 13:00 09/02/24 13:00 3.75 MLS/HR objective Gen.: Patient lying in bed in medical ICU. Sedated, intubated on mechanical ventilator. Head: Normocephalic, atraumatic. Eyes: PERRLA. Ears: Normal external anatomy. Throat: Endotracheal tube and orogastric tube in place. Neck: Supple, trachea midline. Chest: Transmitted breath sounds bilaterally. Decreased air entry bilaterally. No wheezing. Bibasilar crackles. Cardiovascular: Positive S1, positive S2. Regular rate and rhythm. Abdomen: Positive bowel sounds in all 4 quadrants. Soft, nontender, nondistended. : Teague in place. Normal external genitalia. Rectal: Deferred. Skin: Warm, dry. Intact. Extremities: 2+ radial pulses bilaterally. No lower extremity edema. Neuro: Sedated. laboratory and microbiology Laboratory Tests 09/02/24 02:27 Test 09/02/24 02:27 Range/Units Serum Glucose 168 H 74-106 mg/dL Assessment/Plan Impression: Acute hypoxic respiratory failure Acute hypercarbic respiratory failure On mechanical ventilator Pleural effusions Atelectasis Morbid obesity with a BMI of 44.8 Pulmonary edema Acute exacerbation of COPD vs Asthma Elevated troponin Events: Remains on vent support On assist control with respiratory rate of 20, tidal volume 600, PEEP of 8, FiO2 at 100%. Will increase PEEP to 12 Sedated on Fentanyl, Versed Start Propofol Start Levophed for hemodynamic support. Titrate to keep MAP above 65 mmHg/SBP above 90 mmHg ABG reviewed, compensated. CXR reviewed, demonstrates bilateral pleural effusions, bilateral opacities Chest ultrasound revealed trace right pleural effusion Continue antibiotics Leukocytosis - WBC of 14.8 K Continue bronchodilators IV steroids Diurese w/ Lasix - Lasix 40 mg IVP x1 Monitor renal function - creatinine elevated at 1.41 Monitor electrolytes. Supplement as necessary. Labs and imaging reviewed. Rest of plan as noted below. Plan: s/p intubation on mechanical ventilator COVID, influenza negative. 09/01/24 - CXR image and report reviewed. Endotracheal tube in place. Devices in place. Bibasilar opacities. Small pleural effusions. Atelectasis ABG reviewed. Acidemia due To CO2 retention. Vent settings: Assist control with respiratory rate of 20, tidal volume 600, PEEP 8 --> 12, FiO2 at 100%. Titrate FIO2 to keep O2 saturation between 88-94%. VAP bundle Daily ABG and CXR while intubated. Sedate for ventilatory synchrony Bronchodilators IV Steroids On pressors for hemodynamic support. Titrate to keep MAP above 65 mmHg/SBP above 90 mmHg. F/u Echo to evaluate LVEF, RVSP and r/o valvular dysfunction. F/u Cardiology recommendations Plan for CTA of chest to r/o PE. Continue antibiotics. Zosyn/Vancomycin F/u cultures. Monitor renal function due to Acute kidney injury. Monitor electrolytes. Supplement as necessary. Nutritional support. Accucheks, ISS. Morbid obesity, complicates all care. Diet and lifestyle modifications for weight reduction recommended. GI/DVT prophylaxis. Condition: Critical Prognosis: Poor given multiple comorbidities. Rest of plan per hospitalist and other consultants. A total of 35 minutes of critical care time was spent reviewing the patient record, examining the patient, making a diagnostic and therapeutic plan, discussing this plan with the medical personnel, following up on diagnostic studies and following the patient for clinical stability excluding any and all procedures. At least 50% of this time was spent in direct, [id number] contact. Thank you ANAHI Montoya for allowing me to participate in this patient's care. Further recommendations will depend on patient's clinical course. Please do not hesitate to contact me if you have any questions or concerns. This medical document was created using an electronic medical record system with [employer] dictation system. Although this document has been carefully reviewed, there may still be some phonetic and typographical errors. These areas are purely typographical due to imperfections of the software programs, and do not reflect any compromise in the patient's medical care. Plan discussed with: Other (FERNANDO Rodriguez) Critical Care Time(min): 35 LIZ GUDINO MD Sep 02, 2024 18:25
[2024-09-02] MEDS: VANCOMYCIN 1.5GM/300ML 300 ML IV ONE (20:32)
[2024-09-02] MEDS: ENOXAPARIN SOD 150 MG/1 ML SYRINGE SC SCH (22:03)
[2024-09-03] VITALS (106 sets, daily range): BP systolic 107–134; BP diastolic 60–80; PULSE 65–94; RESP 14–21; TEMP 98.5–99.2; O2SAT 86–96
[2024-09-03 07:54] LABS: Base Excess -0.9 mmol/L (-2.0-3.0)
[2024-09-03 08:23] LABS: Basophils # (auto) 0.1 10 ^3/uL (0-0.2); Basophils % (auto) 0.5 % (0.0-2.0); Eosinophils # (auto) 0 10 ^3/uL (0-0.8); Eosinophils % (auto) 0.1 % (0.0-7.0); Hematocrit 50.4 % (41.0-53.0); Hemoglobin 16.4 g/dL (13.5-17.5); Lymphocytes # (auto) 0.6 10 ^3/uL (0.4-5.4); Lymphocytes % (auto) 3.6 % (10.0-50.0); Mean Corpuscular Hemoglobin 30.7 pg (28.0-32.0); Mean Corpuscular Hgb Conc. 32.5 g/dL (32.0-36.0); Mean Corpuscular Volume 94.6 fL (80.0-100.0); Monocytes # (auto) 0.8 10 ^3/uL (0-1.3); Monocytes % (auto) 5.1 % (0.0-12.0); Neutrophils # (auto) 14.5 10 ^3/uL (1.6-8.6); Neutrophils % (auto) 90.7 % (37.0-80.0); Nucleated Red Blood Cells % 0.1 %; Platelet Count (auto) 220 10^3/uL (140-450); Red Blood Cells 5.33 10^6/uL (4.5-5.90); Red Cell Distribution Width 14.6 % (11.8-14.3)
--- NOTE | 2024-09-03 08:28 | DVH ---
EXAM: XY CHEST PORTABLE Indication: INTUBATED Technique: Single frontal view of the chest was obtained Comparison: XY CHEST PORTABLE on DOS: 09/02/24, XY CHEST XRAY 1 VIEW on DOS: 09/01/24, XY CHEST CHARLIE BLE on DOS: 09/01/24, XY CHEST PORTABLE on DOS: 09/02/24 FINDINGS: Lines and Tubes: There is a right central venous catheter with tip terminating in the superior vena c urmila. The endotracheal tube terminates above alf. The enteric tube courses below the left hemidiaph ragm and the tip extends outside the field of view. Lungs: Bilateral airspace consolidations, decreased. Pleura: Bilateral pleural effusions. Decreased. No pneumothorax. Cardiomediastinal contours: Unremarkable Bones: No acute osseous abnormality. IMPRESSION: Slightly improved interstitial opacities compared to prior exam.
[2024-09-03 08:41] LABS: Calcium 9.3 mg/dL (8.7-10.4)
[2024-09-03 08:46] LABS: BUN/Creatinine Ratio 12.1 (10.0-20.0); Blood Urea Nitrogen 19 mg/dL (9-23); Chloride 101 mmol/L (98-107); Potassium 4.5 mmol/L (3.5-5.1); Sodium 137 mmol/L (136-145)
[2024-09-03 08:48] LABS: Glucose 196 mg/dL (74-106)
[2024-09-03 08:50] LABS: Anion Gap 11 (5-15); Carbon Dioxide 25 mmol/L (20-31)
[2024-09-03] MEDS: VANCOMYCIN 1.5GM/300ML 300 ML IV ONE (08:55)
[2024-09-03] MEDS: MICAFUNGIN SODIUM 100 MG in SODIUM CHL 0.9% 100 ML IV SCH (08:59)
[2024-09-03] MEDS: FUROSEMIDE 40 MG/4 ML VIAL IV ONE (09:50)
[2024-09-03] MEDS ORDERED: QUET200T45 PO (10:22)
[2024-09-03] MEDS ORDERED: PALI156I IM (10:22)
[2024-09-03] MEDS ORDERED: OLAN15TA31 PO (10:22)
[2024-09-03] MEDS ORDERED: RISP2TAB62 PO (10:22)
[2024-09-03] MEDS ORDERED: DIVA500T13 PO (10:22)
--- NOTE | 2024-09-03 14:00 | DVHPN2 ---
Subjective Intubate and chemically sedated. Reviewed: Care Plan, H&P, Labs, Medications, Previous Orders, Radiology Changes from previous H/P or p: No Changes General: Per HPI Eyes: No Pain, No Vision change, No Conjunctivae inflammation, No Eyelid inflammation, No Other, No Redness Cardiovascular: No Chest Pain, No Palpitations, No Orthopnea, No Paroxysmal Noc. Dyspnea, No Edema, No Lt Headedness, No Other Respiratory: No Cough, No Dry; Shortness of breath; No SOB with excertion, No Wheezing, No Hemoptysis, No Pleuritic Pain, No Sputum, No Other Gastrointestinal: No Nausea, No Vomiting, No Abdominal Pain, No Diarrhea, No Constipation, No Melena, No Hematochezia, No Other Genitourinary: No Dysuria, No Frequency, No Incontinence, No Hematuria, No Retention, No Other Musculoskeletal: No other, No neck pain, No shoulder pain, No arm pain, No back pain, No hand pain, No leg pain, No foot pain Skin: No Rash, No Lesions, No Jaundice, No Bruising, No Other Objective Vitals Vital Signs Date Time Temp Pulse Resp B/P (MAP) Pulse Ox O2 Delivery O2 Flow Rate FiO2 09/03/24 13:39 120/59 09/03/24 12:26 82 20 91 100 09/03/24 10:00 98.8 98.8 09/03/24 08:00 Mechanical Ventilator+ 09/01/24 07:57 15 Intake/Output Intake and Output 09/03/24 07:00 Intake Total 2136.50 ml Output Total 2550 ml Balance -413.50 ml IV Total 2136.50 ml Output Urine Total 2550 ml General Appearance: Other (intubated and sedated ) HEENT: PERRLA Lungs: Other (Of ventilation. Diminished breath sounds.) Cardiovascular: Regular rate, Normal S1, Normal S2, No murmurs Abdomen: Normal bowel sounds, Soft, No tenderness Musculoskeletal: Other (Unable to assess) Extremities: Normal pulses, No tenderness/swelling Skin: Dry, Intact Psych/Mental Status: Other (intubated and sedated ) Medications Current Medications Medications Dose Ordered Sig/Felicitas Route Start Time Stop Time Status Last Admin Dose Admin Albuterol 2.5 mg Q4HR NEB 09/01/24 14:00 09/03/24 10:32 2.5 MG Ipratropium [place] 0.5 mg Q4HR NEB 09/01/24 14:00 09/03/24 10:32 0.5 MG Methylprednisolone Sodium Succinate 40 mg Q8HR IV 09/01/24 14:00 09/03/24 13:38 40 MG Ondansetron HCl 4 mg Q4HP PRN IV 09/01/24 10:30 Nitroglycerin 0.4 mg Q5MINP PRN SL 09/01/24 10:30 Fentanyl Citrate 250 ml @ 2.5 mls/hr Q24H IV 09/01/24 13:30 09/03/24 11:21 35 MLS/HR Midazolam HCl 50 ml @ 1 mls/hr Q24H IV 09/01/24 14:00 09/03/24 11:54 15 MLS/HR Vancomycin HCl 0 ml @ 0 mls/hr UD IV 09/01/24 15:45 Piperacillin Sod/ Tazobactam Sod 100 ml @ 25 mls/hr Q6HR IV 09/01/24 18:00 UNV Piperacillin Sod/ Tazobactam Sod 100 ml @ 25 mls/hr Q6H IV 09/01/24 22:00 09/03/24 11:01 25 MLS/HR Enoxaparin Sodium 150 mg Q12HR SC 09/02/24 22:00 09/03/24 09:51 150 MG Propofol 100 ml @ 4.5 mls/hr [id number] IV 09/02/24 13:00 09/03/24 13:39 13.5 MLS/HR Norepinephrine Bitartrate 250 ml @ 3.75 mls/hr Q24H IV 09/02/24 13:00 09/02/24 13:00 3.75 MLS/HR Furosemide 40 mg DAILY IV 09/03/24 10:00 Micafungin Sodium 100 mg/Sodium Chloride 100 ml @ 100 mls/hr DAILY IV 09/03/24 10:00 09/03/24 08:59 100 MLS/HR Laboratory Results Laboratory Tests 09/03/24 05:30 Chemistry Test 09/03/24 05:30 Calcium Level 9.3 mg/dL (8.7-10.4) Blood Gas Results Test 09/03/24 07:12 Arterial Blood pH 7.331 (7.350-7.450) FiO2 % 100.0 Microbiology Microbiology Date/Time Source Procedure Growth Status 09/02/24 12:30 Blood Blood Culture - Preliminary NO GROWTH AFTER 24 HOURS OF INCUBATION. Resulted 09/01/24 13:00 Sputum Gram Stain - Final Resulted 09/01/24 13:00 Sputum Respiratory Culture - Preliminary Resulted Labs and/or images reviewed: Labs reviewed by me, Image(s) reviewed by me Assessment/Plan Assessment/Plan Impression: -acute hypoxic and hypercarbic respiratory failure with failure of noninvasive positive pressure ventilation -community-acquired pneumonia, probable Gram-positive/Gram-negative etiology -morbid obesity -nicotine dependence -sepsis -history of schizophrenia -NSTEMI type 2 Plan: -patient has worsening hypoxia, now on 100% FiO2 with a PEEP of 14. Oxygen saturation noted to be 91% -brought antibiotic therapy to include vancomycin, add micafungin -continue steroids -burrell cultures -continue full-dose anticoagulation. Unable to perform CT angiogram of the chest given instability -we will attempt to contact family for further medical history -patient from [place], check for coccidiomycosis Patient repeat labs, chest x-ray, ABG in a.m. Critical care time spent with patient discussing and formulating plan of care: 40 minutes. This does not include time spent performing procedures. This medical document was created using an electronic medical record system with [employer] dictation system. Although this document has been carefully reviewed, there may still be some phonetic and typographical errors. These areas are purely typographical due to imperfections of the software programs, and do not reflect any compromise in the patient's medical care. Plan discussed with: Patient, Other (RN) My Orders Orders - ZUHAIR GUILLORY [employer] Procedure Category Date Status Time Abg W/ Co-Ox RT 09/03/24 Logged 07:38 Furosemide Injection PHA 09/03/24 In Process (Lasix Injection) 10:00 Micafungin Sodium PHA 09/03/24 In Process (Mycamine) 10:00 Basic Metabolic Panel LAB 09/04/24 Verified 05:00 Basic Metabolic Panel LAB 09/05/24 Verified 05:00 Basic Metabolic Panel LAB 09/06/24 Verified 05:00 Complete Blood Count LAB 09/04/24 Verified 05:00 Complete Blood Count LAB 09/05/24 Verified 05:00 Complete Blood Count LAB 09/06/24 Verified 05:00 Chest Portable XY 09/04/24 Logged 05:00 Chest Portable XY 09/05/24 Logged 05:00 Chest Portable XY 09/06/24 Logged 05:00 Abg W/ Co-Ox RT 09/04/24 Logged 05:00 Abg W/ Co-Ox RT 09/05/24 Logged 05:00 Abg W/ Co-Ox RT 09/06/24 Logged 05:00 Drug Screen LAB 09/03/24 Logged 08:03 Date of Service: Sep 03, 2024 Billing Provider: ZUHAIR GUILLORY NP Common Visit Codes: [id number] CARE 30-74 MIN ZUHAIR GUILLORY NP Sep 03, 2024 14:00
[2024-09-03] MEDS: FUROSEMIDE 40 MG/4 ML VIAL IV SCH (16:07)
--- NOTE | 2024-09-03 17:49 | DVHPN2 ---
Progress Note - Dictate Date Seen: Sep 03, 2024 Medical Necessity Reason Pt with a Central, PICC or Fol: Yes The following are medically ne: Teague Catheter Reason for teague catheter: Strict I&O Subjective Patient seen and examined at bedside. Sedated, intubated on mechanical ventilator. Overnight events reviewed. vital signs Vital Sign Date Time Temp Pulse Resp B/P (MAP) Pulse Ox O2 Delivery O2 Flow Rate FiO2 09/03/24 17:00 79 20 121/70 (87) 94 09/03/24 16:26 100 09/03/24 16:00 98.9 98.9 09/03/24 16:00 Mechanical Ventilator+ 09/01/24 07:57 15 Total Intake and Output 09/02/24 09/02/24 09/03/24 15:00 23:00 07:00 Intake Total 547.25 ml 1063.00 ml 526.25 ml Output Total 850 ml 1700 ml Balance 547.25 ml 213.00 ml -1173.75 ml medications Current Medications Medications Dose Ordered Sig/Felicitas Route Start Time Stop Time Status Last Admin Dose Admin Albuterol 2.5 mg Q4HR NEB 09/01/24 14:00 09/03/24 14:32 2.5 MG Ipratropium [place] 0.5 mg Q4HR NEB 09/01/24 14:00 09/03/24 14:32 0.5 MG Methylprednisolone Sodium Succinate 40 mg Q8HR IV 09/01/24 14:00 09/03/24 13:38 40 MG Ondansetron HCl 4 mg Q4HP PRN IV 09/01/24 10:30 Nitroglycerin 0.4 mg Q5MINP PRN SL 09/01/24 10:30 Fentanyl Citrate 250 ml @ 2.5 mls/hr Q24H IV 09/01/24 13:30 09/03/24 16:57 35 MLS/HR Midazolam HCl 50 ml @ 1 mls/hr Q24H IV 09/01/24 14:00 09/03/24 15:46 15 MLS/HR Vancomycin HCl 0 ml @ 0 mls/hr UD IV 09/01/24 15:45 Piperacillin Sod/ Tazobactam Sod 100 ml @ 25 mls/hr Q6HR IV 09/01/24 18:00 UNV Piperacillin Sod/ Tazobactam Sod 100 ml @ 25 mls/hr Q6H IV 09/01/24 22:00 09/03/24 11:01 25 MLS/HR Enoxaparin Sodium 150 mg Q12HR SC 09/02/24 22:00 09/03/24 09:51 150 MG Propofol 100 ml @ 4.5 mls/hr [id number] IV 09/02/24 13:00 09/03/24 13:39 13.5 MLS/HR Norepinephrine Bitartrate 250 ml @ 3.75 mls/hr Q24H IV 09/02/24 13:00 09/02/24 13:00 3.75 MLS/HR Furosemide 40 mg DAILY IV 09/03/24 10:00 09/03/24 16:07 40 MG Micafungin Sodium 100 mg/Sodium Chloride 100 ml @ 100 mls/hr DAILY IV 09/03/24 10:00 09/03/24 08:59 100 MLS/HR objective Gen.: Patient lying in bed in medical ICU. Sedated, intubated on mechanical ventilator. Head: Normocephalic, atraumatic. Eyes: PERRLA. Ears: Normal external anatomy. Throat: Endotracheal tube and orogastric tube in place. Neck: Supple, trachea midline. Chest: Transmitted breath sounds bilaterally. Decreased air entry bilaterally. No wheezing. Bibasilar crackles. Cardiovascular: Positive S1, positive S2. Regular rate and rhythm. Abdomen: Positive bowel sounds in all 4 quadrants. Soft, nontender, nondistended. : Teague in place. Normal external genitalia. Rectal: Deferred. Skin: Warm, dry. Intact. Extremities: 2+ radial pulses bilaterally. No lower extremity edema. Neuro: Sedated. laboratory and microbiology Laboratory Tests 09/03/24 05:30 Test 09/03/24 05:30 Range/Units Serum Glucose 196 H 74-106 mg/dL Assessment/Plan Impression: Acute hypoxic respiratory failure Acute hypercarbic respiratory failure On mechanical ventilator Pleural effusions Atelectasis Morbid obesity with a BMI of 44.8 Pulmonary edema Acute exacerbation of COPD vs Asthma Elevated troponin Events: Remains on vent support On assist control with respiratory rate of 20, tidal volume 600, PEEP of 12, FiO2 at 100%. Sedated on Fentanyl, Versed, Propofol Off Levophed, hemodynamically stable. Patient not tolerating turns. Increased ET tube secretions We will plan for bronchoscopy with BAL. ABG reviewed, notable for acidemia. CXR reviewed, demonstrates decreased bilateral pleural effusions, slightly improved interstitial opacities compared to prior exam. Continue antibiotics On antifungal WBC trending up, 16.0 K Continue bronchodilators IV steroids Diurese w/ Lasix as tolerated Monitor renal function - creatinine elevated at 1.49, 1.57 Monitor electrolytes. Supplement as necessary. Labs and imaging reviewed. Rest of plan as noted below. Plan: s/p intubation on mechanical ventilator COVID, influenza negative. 09/01/24 - CXR image and report reviewed. Endotracheal tube in place. Devices in place. Bibasilar opacities. Small pleural effusions. Atelectasis ABG reviewed. Acidemia due To CO2 retention. Vent settings: Assist control with respiratory rate of 20, tidal volume 600, PEEP 12, FiO2 at 100%. Titrate FIO2 to keep O2 saturation between 88-94%. VAP bundle Daily ABG and CXR while intubated. Sedate for ventilatory synchrony Bronchodilators IV Steroids On pressors for hemodynamic support. Titrate to keep MAP above 65 mmHg/SBP above 90 mmHg. F/u Echo to evaluate LVEF, RVSP and r/o valvular dysfunction. F/u Cardiology recommendations Plan for CTA of chest to r/o PE. Continue antibiotics. Zosyn/Vancomycin F/u cultures. Monitor renal function due to Acute kidney injury. Monitor electrolytes. Supplement as necessary. Nutritional support. Accu-Cheks, ISS. Morbid obesity, complicates all care. Diet and lifestyle modifications for weight reduction recommended. GI/DVT prophylaxis. Condition: Critical Prognosis: Poor given multiple comorbidities. Rest of plan per hospitalist and other consultants. A total of 35 minutes of critical care time was spent reviewing the patient record, examining the patient, making a diagnostic and therapeutic plan, discussing this plan with the medical personnel, following up on diagnostic studies and following the patient for clinical stability excluding any and all procedures. At least 50% of this time was spent in direct, [id number] contact. Thank you ANAHI Montoya for allowing me to participate in this patient's care. Further recommendations will depend on patient's clinical course. Please do not hesitate to contact me if you have any questions or concerns. This medical document was created using an electronic medical record system with [employer]ation system. Although this document has been carefully reviewed, there may still be some phonetic and typographical errors. These areas are purely typographical due to imperfections of the software programs, and do not reflect any compromise in the patient's medical care. Plan discussed with: Other (FERNANDO Junior) Critical Care Time(min): 35 LIZ GUDINO MD Sep 03, 2024 17:49
--- NOTE | 2024-09-03 18:42 | DVHNC2 ---
Procedure - Bronchoscopy procedure note: Indications: Multifocal atelectasis, Possible mucous plugging. Medicines: See DATA CAPTURE CLERK notes. Complications: None Procedure: Patient medications and allergies reviewed. The risks and benefits of the procedure and the sedation options and risk were discussed with the patient's healthcare proxy. All questions were answered and informed consent was obtained. Patient identification and proposed procedure were verified prior to the procedure by the physician, and a nurse, and the respiratory therapist in ICU room. The heart rate, respiratory rate, oxygen saturations, blood pressure, adequacy of pulmonary ventilation, and response to care were monitored throughout the procedure. The physical status of the patient was reassessed after the procedure. After obtaining informed consent, the bronchoscope was introduced through the endotracheal tube and advanced into the trachea bronchial tree of both lungs. The procedure was accomplished without difficulty. The patient tolerated the procedure well. Findings: The trachea is in normal caliber. The alf is sharp. The tracheobronchial tree of the right lung was examined to at least the first subsegmental level. The bronchial mucosa and anatomy in the right lung are normal. There are no endobronchial lesions. There was copious whitish secretions from right main stem bronchus onward throughout R1-R10. Right middle lobe (RML) Bronchoalveolar lavage (BAL) obtained. RML BAL sent for gram stain and culture. The left upper lobe, lingula, and left lower lobe were examined to at least the first subsegmental level. Bronchial mucosa and anatomy in the left upper lobe and lingula are normal. There were no endobronchial lesions. There was copious whitish secretions from left main stem bronchus onward throughout L1-L10. Mucous plugging removed from L6-L10. There was no active bleeding at the completion of the procedure. Estimated blood loss: Less than 5 mL. Impression: Right upper/middle/lower and Left upper/lower lobe atelectasis due to mucous plugging Mucous plugging R1-R10 and L1-L10. RML BAL performed Atelectasis 2/2 mucous plugging Recommendation: Follow-up RML BAL results. Procedure codes: 20101, bronchoscopy, rigid and flexible, including fluoroscopic guidance, one performed; with bronchial endobronchial broncho-alveolar lavage, single or multiple sites LIZ GUDINO MD Sep 03, 2024 18:42
[2024-09-04] VITALS (106 sets, daily range): BP systolic 112–137; BP diastolic 60–85; PULSE 56–111; RESP 14–22; TEMP 98.3–99; O2SAT 90–95
--- NOTE | 2024-09-04 05:18 | DVH ---
CHEST RADIOGRAPH Indication: pneumonia Technique: Single frontal view of the chest was obtained COMPARISON: XY CHEST PORTABLE on DOS: 09/03/24, XY CHEST PORTABLE on DOS: 09/02/24, XY CHEST XRAY 1 V IEW on DOS: 09/01/24, XY CHEST PORTABLE on DOS: 09/01/24 FINDINGS: Lines and Tubes: Endotracheal tube, enteric catheter and right central venous catheter in satisfactor y position. Lungs: Patchy bilateral lower lobe airspace disease. Pleura: No effusion. No pneumothorax. Cardiomediastinal contours: Unremarkable Bones: Unremarkable IMPRESSION: Lines and tubes in satisfactory position. Patchy bilateral lower lobe airspace opacities, slightly improved.
[2024-09-04 07:00] LABS: Basophils # (auto) 0.1 10 ^3/uL (0-0.2); Basophils % (auto) 0.3 % (0.0-2.0); Eosinophils # (auto) 0 10 ^3/uL (0-0.8); Hemoglobin 15.5 g/dL (13.5-17.5); Mean Corpuscular Volume 94.1 fL (80.0-100.0); Monocytes # (auto) 1.4 10 ^3/uL (0-1.3); Monocytes % (auto) 8.8 % (0.0-12.0); Neutrophils # (auto) 13.5 10 ^3/uL (1.6-8.6); Neutrophils % (auto) 84.9 % (37.0-80.0); Nucleated Red Blood Cells % 0.1 %; Platelet Count (auto) 242 10^3/uL (140-450); Red Cell Distribution Width 14.5 % (11.8-14.3); White Blood Cell 15.9 10^3/uL (4.4-10.8)
[2024-09-04 07:29] LABS: BUN/Creatinine Ratio 13.1 (10.0-20.0); Blood Urea Nitrogen 17 mg/dL (9-23)
[2024-09-04 07:30] LABS: Anion Gap 9 (5-15)
[2024-09-04 07:32] LABS: Base Excess 1.4 mmol/L (-2.0-3.0)
[2024-09-04 08:27] LABS: Calcium 9.2 mg/dL (8.7-10.4); Carbon Dioxide 27 mmol/L (20-31); Chloride 103 mmol/L (98-107); Glucose 255 mg/dL (74-106); Potassium 4.2 mmol/L (3.5-5.1); Sodium 139 mmol/L (136-145)
--- NOTE | 2024-09-04 08:27 | DVHPN2 ---
Subjective Intubate and chemically sedated. Reviewed: Care Plan, H&P, Labs, Medications, Previous Orders, Radiology Changes from previous H/P or p: No Changes General: Per HPI Eyes: No Pain, No Vision change, No Conjunctivae inflammation, No Eyelid inflammation, No Other, No Redness Cardiovascular: No Chest Pain, No Palpitations, No Orthopnea, No Paroxysmal Noc. Dyspnea, No Edema, No Lt Headedness, No Other Respiratory: No Cough, No Dry; Shortness of breath; No SOB with excertion, No Wheezing, No Hemoptysis, No Pleuritic Pain, No Sputum, No Other Gastrointestinal: No Nausea, No Vomiting, No Abdominal Pain, No Diarrhea, No Constipation, No Melena, No Hematochezia, No Other Genitourinary: No Dysuria, No Frequency, No Incontinence, No Hematuria, No Retention, No Other Musculoskeletal: No other, No neck pain, No shoulder pain, No arm pain, No back pain, No hand pain, No leg pain, No foot pain Skin: No Rash, No Lesions, No Jaundice, No Bruising, No Other Objective Vitals Vital Signs Date Time Temp Pulse Resp B/P (MAP) Pulse Ox O2 Delivery O2 Flow Rate FiO2 09/04/24 07:36 81 20 123/69 (87) 95 75 09/04/24 06:00 Mechanical Ventilator+ 09/04/24 01:00 98.3 98.3 Intake/Output Intake and Output 09/04/24 07:00 Intake Total 2271.75 ml Output Total 3025 ml Balance -753.25 ml Intake Oral 0 ml IV Total 2271.75 ml Output Urine Total 3025 ml General Appearance: moderate distress, Other (intubated and sedated ) HEENT: Atraumatic, PERRLA Lungs: Other (Of ventilation. Diminished breath sounds.) Cardiovascular: Regular rate, Normal S1, Normal S2, No murmurs Abdomen: Normal bowel sounds, Soft, No tenderness Genitourinary: No Apparent Abnormalities (Spence catheterization) Musculoskeletal: Other (Unable to assess) Extremities: No edema, Normal pulses, No tenderness/swelling Skin: Dry, Intact Psych/Mental Status: Other (intubated and sedated ) Medications Current Medications Medications Dose Ordered Sig/Felicitas Route Start Time Stop Time Status Last Admin Dose Admin Albuterol 2.5 mg Q4HR NEB 09/01/24 14:00 09/04/24 06:10 2.5 MG Ipratropium [place] 0.5 mg Q4HR NEB 09/01/24 14:00 09/04/24 06:10 0.5 MG Methylprednisolone Sodium Succinate 40 mg Q8HR IV 09/01/24 14:00 09/04/24 06:37 40 MG Ondansetron HCl 4 mg Q4HP PRN IV 09/01/24 10:30 Nitroglycerin 0.4 mg Q5MINP PRN SL 09/01/24 10:30 Fentanyl Citrate 250 ml @ 2.5 mls/hr Q24H IV 09/01/24 13:30 09/04/24 01:14 35 MLS/HR Midazolam HCl 50 ml @ 1 mls/hr Q24H IV 09/01/24 14:00 09/03/24 23:31 15 MLS/HR Vancomycin HCl 0 ml @ 0 mls/hr UD IV 09/01/24 15:45 Piperacillin Sod/ Tazobactam Sod 100 ml @ 25 mls/hr Q6HR IV 09/01/24 18:00 UNV Piperacillin Sod/ Tazobactam Sod 100 ml @ 25 mls/hr Q6H IV 09/01/24 22:00 09/04/24 04:11 25 MLS/HR Enoxaparin Sodium 150 mg Q12HR SC 09/02/24 22:00 09/03/24 21:30 150 MG Propofol 100 ml @ 4.5 mls/hr [id number] IV 09/02/24 13:00 09/04/24 01:51 13.5 MLS/HR Norepinephrine Bitartrate 250 ml @ 3.75 mls/hr Q24H IV 09/02/24 13:00 09/02/24 13:00 3.75 MLS/HR Furosemide 40 mg DAILY IV 09/03/24 10:00 09/03/24 16:07 40 MG Micafungin Sodium 100 mg/Sodium Chloride 100 ml @ 100 mls/hr DAILY IV 09/03/24 10:00 09/03/24 08:59 100 MLS/HR Laboratory Results Laboratory Tests 09/04/24 06:35 Chemistry Test 09/04/24 06:35 Calcium Level Pending Blood Gas Results Test 09/04/24 07:05 Arterial Blood pH 7.397 (7.350-7.450) FiO2 % 80.0 Microbiology Microbiology Date/Time Source Procedure Growth Status 09/02/24 12:30 Blood Blood Culture - Preliminary NO GROWTH AFTER 24 HOURS OF INCUBATION. Resulted 09/01/24 13:00 Sputum Gram Stain - Final Resulted 09/01/24 13:00 Sputum Respiratory Culture - Preliminary Resulted Labs and/or images reviewed: Labs reviewed by me, Image(s) reviewed by me Assessment/Plan Assessment/Plan Impression: -acute hypoxic and hypercarbic respiratory failure with failure of noninvasive positive pressure ventilation -community-acquired pneumonia, probable Gram-positive/Gram-negative etiology -morbid obesity -nicotine dependence -sepsis -history of schizophrenia -NSTEMI type 2 Plan: Events: Patient had bronchoscopy yesterday with noted copious secretions. Patient's FiO2 now down to 80%. Patient has acceptable ABG. -continue antibiotic therapy with vancomycin, Zosyn, micafungin -decrease Solu-Medrol to 40 mg IV b.i.d. -burrell cultures: Pending -decrease anticoagulation to Lovenox 40 mg subcutaneous daily -PUD prophylaxis -continue bronchodilators, add Pulmicort, add Mucomyst Patient repeat labs, chest x-ray, ABG in a.m. Critical care time spent with patient discussing and formulating plan of care: 40 minutes. This does not include time spent performing procedures. This medical document was created using an electronic medical record system with [employer] dictation system. Although this document has been carefully reviewed, there may still be some phonetic and typographical errors. These areas are purely typographical due to imperfections of the software programs, and do not reflect any compromise in the patient's medical care. Plan discussed with: Patient, Other (RN) My Orders Orders - ZUHAIR GUILLORY NUMEROLOGIST Procedure Category Date Status Time Methylprednisolone PHA 09/04/24 Verified Sod Succ (Solu Medrol 10:00 Nutritional PHA 09/04/24 Verified Supplements (Glucerna 08:30 Pantoprazole PHA 09/04/24 Verified (Protonix) 10:00 Enoxaparin Sodium PHA 09/04/24 Verified (Lovenox) 10:00 Acetylcysteine PHA 09/04/24 Verified Inhalation 10% 14:00 Budesonide PHA 09/04/24 Verified (Inhalation) 10:00 Date of Service: Sep 04, 2024 Billing Provider: ZUHAIR GUILLORY NP Common Visit Codes: 33401-[id number] CARE 30-74 MIN ZUHAIR GUILLORY NP Sep 04, 2024 08:27
[2024-09-04] MEDS ORDERED: Glucerna 1.2 Cal 1Liter BOTTLE GT SCH (08:30)
[2024-09-04] MEDS: ENOXAPARIN SOD 40 MG/0.4 ML SYRINGE SC SCH (10:23)
[2024-09-04] MEDS: methylPREDNISolone SOD SUCC 40 MG/ML VL IV SCH (10:23)
[2024-09-04] MEDS: PANTOPRAZOLE 40 MG/10 ML VIAL INJ IV SCH (10:24)
[2024-09-04] MEDS: BUDESONIDE (INHALATION) 0.5 MG/2 ML NEB NEB SCH (10:24)
[2024-09-04] MEDS: VANCOMYCIN 1.5GM/300ML 300 ML IV SCH (11:47)
[2024-09-04] MEDS: ACETYLCYSTEINE 10 %(100MG/ML) SOL 4ML NEB SCH (13:29)
--- NOTE | 2024-09-04 19:36 | DVHPN2 ---
Progress Note - Dictate Date Seen: Sep 04, 2024 Medical Necessity Reason Pt with a Central, PICC or Fol: Yes The following are medically ne: Teague Catheter Reason for teague catheter: Strict I&O Subjective Patient seen and examined at bedside. Sedated, intubated on mechanical ventilator. Overnight events reviewed. vital signs Vital Sign Date Time Temp Pulse Resp B/P (MAP) Pulse Ox O2 Delivery O2 Flow Rate FiO2 09/04/24 18:45 75 20 123/69 (87) 95 09/04/24 18:00 65 09/04/24 18:00 Mechanical Ventilator+ 09/04/24 16:00 98.9 98.9 Total Intake and Output 09/03/24 09/03/24 09/04/24 15:00 23:00 07:00 Intake Total 1069.25 ml 633.0 ml 633.0 ml Output Total 1075 ml 950 ml 1000 ml Balance -5.75 ml -317.0 ml -367.0 ml medications Current Medications Medications Dose Ordered Sig/Felicitas Route Start Time Stop Time Status Last Admin Dose Admin Albuterol 2.5 mg Q4HR NEB 09/01/24 14:00 09/04/24 19:17 2.5 MG Ipratropium [place] 0.5 mg Q4HR NEB 09/01/24 14:00 09/04/24 19:17 0.5 MG Ondansetron HCl 4 mg Q4HP PRN IV 09/01/24 10:30 Nitroglycerin 0.4 mg Q5MINP PRN SL 09/01/24 10:30 Fentanyl Citrate 250 ml @ 2.5 mls/hr Q24H IV 09/01/24 13:30 09/04/24 14:46 35 MLS/HR Midazolam HCl 50 ml @ 1 mls/hr Q24H IV 09/01/24 14:00 09/04/24 17:49 15 MLS/HR Vancomycin HCl 0 ml @ 0 mls/hr UD IV 09/01/24 15:45 Piperacillin Sod/ Tazobactam Sod 100 ml @ 25 mls/hr Q6HR IV 09/01/24 18:00 UNV Piperacillin Sod/ Tazobactam Sod 100 ml @ 25 mls/hr Q6H IV 09/01/24 22:00 09/04/24 10:23 25 MLS/HR Propofol 100 ml @ 4.5 mls/hr [id number] IV 09/02/24 13:00 09/04/24 10:24 13.5 MLS/HR Norepinephrine Bitartrate 250 ml @ 3.75 mls/hr Q24H IV 09/02/24 13:00 09/02/24 13:00 3.75 MLS/HR Furosemide 40 mg DAILY IV 09/03/24 10:00 09/04/24 10:24 40 MG Micafungin Sodium 100 mg/Sodium Chloride 100 ml @ 100 mls/hr DAILY IV 09/03/24 10:00 09/04/24 10:00 100 MLS/HR Methylprednisolone Sodium Succinate 40 mg BID IV 09/04/24 10:00 09/04/24 10:23 40 MG Enteral Nutritional Formula 1,000 ml 40ML/HR GT 09/04/24 08:30 Pantoprazole Sodium 40 mg DAILY IV 09/04/24 10:00 09/04/24 10:24 40 MG Enoxaparin Sodium 40 mg DAILY SC 09/04/24 10:00 09/04/24 10:23 40 MG Acetylcysteine 100 mg Q8HR NEB 09/04/24 14:00 09/04/24 13:29 100 MG Budesonide 0.5 mg BID NEB 09/04/24 10:00 09/04/24 10:24 0.5 MG Vancomycin HCl 300 ml @ 200 mls/hr Q10H IV 09/04/24 10:00 09/04/24 11:47 200 MLS/HR objective Gen.: Patient lying in bed in medical ICU. Sedated, intubated on mechanical ventilator. Head: Normocephalic, atraumatic. Eyes: PERRLA. Ears: Normal external anatomy. Throat: Endotracheal tube and orogastric tube in place. Neck: Supple, trachea midline. Chest: Transmitted breath sounds bilaterally. Decreased air entry bilaterally. No wheezing. Bibasilar crackles. Cardiovascular: Positive S1, positive S2. Regular rate and rhythm. Abdomen: Positive bowel sounds in all 4 quadrants. Soft, nontender, nondistended. : Teague in place. Normal external genitalia. Rectal: Deferred. Skin: Warm, dry. Intact. Extremities: 2+ radial pulses bilaterally. No lower extremity edema. Neuro: Sedated. laboratory and microbiology Laboratory Tests 09/04/24 06:35 Test 09/04/24 06:35 Range/Units Serum Glucose 255 H 74-106 mg/dL Assessment/Plan Impression: Acute hypoxic respiratory failure Acute hypercarbic respiratory failure On mechanical ventilator Pleural effusions Atelectasis Morbid obesity with a BMI of 44.8 Pulmonary edema Acute exacerbation of COPD vs Asthma Elevated troponin Events: Remains on vent support On assist control with respiratory rate of 20, tidal volume 600, PEEP of 12, FiO2 at 75%. Improving FiO2 requirements Sedated on Fentanyl 350 mcg, Versed, Propofol Off Levophed, hemodynamically stable. S/p therapeutic bronchoscopy on 09/03/24 with RML BAL - Mucous plugging R1-R10 and L1-L10. See separate procedure note for details. ABG reviewed, compensated. CXR reviewed, demonstrates patchy bilateral lower lobe airspace opacities, slightly improved. No effusion or pneumothorax. Continue bronchodilators Continue antibiotics IV steroids Continue antifungal WBC trending down, 15.9 K Diurese w/ Lasix as tolerated Monitor renal function - creatinine WNL Monitor electrolytes. Supplement as necessary. Labs and imaging reviewed. Rest of plan as noted below. Plan: s/p intubation on mechanical ventilator COVID, influenza negative. On assist control with respiratory rate of 20, tidal volume 600, PEEP of 12, FiO2 at 75%. Titrate FIO2 to keep O2 saturation between 88-94%. VAP bundle Daily ABG and CXR while intubated. Sedate for ventilatory synchrony Bronchodilators IV Steroids Pressors if necessary for hemodynamic support. Titrate to keep MAP above 65 mmHg/SBP above 90 mmHg. F/u Echo to evaluate LVEF, RVSP and r/o valvular dysfunction. F/u Cardiology recommendations Plan for CTA of chest to r/o PE. Continue antibiotics. Zosyn/Vancomycin F/u cultures. Monitor renal function due to Acute kidney injury. Monitor electrolytes. Supplement as necessary. Nutritional support. Accu-Cheks, ISS. Morbid obesity, complicates all care. Diet and lifestyle modifications for weight reduction recommended. GI/DVT prophylaxis. Condition: Critical Prognosis: Poor given multiple comorbidities. Rest of plan per hospitalist and other consultants. A total of 35 minutes of critical care time was spent reviewing the patient record, examining the patient, making a diagnostic and therapeutic plan, discussing this plan with the medical personnel, following up on diagnostic studies and following the patient for clinical stability excluding any and all procedures. At least 50% of this time was spent in direct, [id number] contact. Thank you ANAHI Montoya for allowing me to participate in this patient's care. Further recommendations will depend on patient's clinical course. Please do not hesitate to contact me if you have any questions or concerns. This medical document was created using an electronic medical record system with [employer] dictation system. Although this document has been carefully reviewed, there may still be some phonetic and typographical errors. These areas are purely typographical due to imperfections of the software programs, and do not reflect any compromise in the patient's medical care. Plan discussed with: Other (FERNANDO Stewart) Critical Care Time(min): 35 LIZ GUDINO MD Sep 04, 2024 19:36
[2024-09-05] VITALS (42 sets, daily range): BP systolic 126–154; BP diastolic 68–94; PULSE 55–89; RESP 19–20; TEMP 98.4; O2SAT 90–97
[2024-09-05 05:00] LABS: Basophils # (auto) 0.2 10 ^3/uL (0-0.2); Eosinophils # (auto) 0 10 ^3/uL (0-0.8); Hematocrit 48.7 % (41.0-53.0); Hemoglobin 15.9 g/dL (13.5-17.5); Lymphocytes # (auto) 0.8 10 ^3/uL (0.4-5.4); Lymphocytes % (auto) 4.9 % (10.0-50.0); Mean Corpuscular Hemoglobin 30.5 pg (28.0-32.0); Mean Corpuscular Hgb Conc. 32.6 g/dL (32.0-36.0); Mean Corpuscular Volume 93.5 fL (80.0-100.0); Monocytes % (auto) 6.3 % (0.0-12.0); Neutrophils # (auto) 14.2 10 ^3/uL (1.6-8.6); Neutrophils % (auto) 87.8 % (37.0-80.0); Nucleated Red Blood Cells % 0.1 %; Platelet Count (auto) 263 10^3/uL (140-450); Red Blood Cells 5.21 10^6/uL (4.5-5.90); Red Cell Distribution Width 14.6 % (11.8-14.3); White Blood Cell 16.2 10^3/uL (4.4-10.8)
[2024-09-05 05:16] LABS: Chloride 105 mmol/L (98-107); Potassium 4.1 mmol/L (3.5-5.1); Sodium 140 mmol/L (136-145)
[2024-09-05 05:17] LABS: Anion Gap 6 (5-15); Calcium 9.2 mg/dL (8.7-10.4); Carbon Dioxide 29 mmol/L (20-31)
[2024-09-05 05:22] LABS: BUN/Creatinine Ratio 15.4 (10.0-20.0); Blood Urea Nitrogen 19 mg/dL (9-23)
[2024-09-05 05:27] LABS: Glucose 353 mg/dL (74-106)
--- NOTE | 2024-09-05 05:32 | DVH ---
EXAM: XY CHEST PORTABLE Indication: pneumonia Technique: Single frontal view of the chest was obtained Comparison: XY CHEST PORTABLE on DOS: 09/04/24, XY CHEST PORTABLE on DOS: 09/03/24, XY CHEST PORTABLE on DOS: 09/02/24, XY CHEST XRAY 1 VIEW on DOS: 09/01/24, XY CHEST PORTABLE on DOS: 09/01/24, XY CHES T PORTABLE on DOS: 09/04/24 FINDINGS: Lines and Tubes: Endotracheal tube, enteric catheter and right central venous catheter in satisfactor y position. Lungs: Patchy bilateral lower lobe airspace disease. Pleura: No effusion. No pneumothorax. Cardiomediastinal contours: Unremarkable Bones: Unremarkable IMPRESSION: Lines and tubes in satisfactory position. Patchy bilateral lower lobe airspace opacities, slightly improved.
--- NOTE | 2024-09-05 07:55 | DVHPN2 ---
Subjective Intubate and chemically sedated. Reviewed: Care Plan, H&P, Labs, Medications, Previous Orders, Radiology Changes from previous H/P or p: No Changes General: Per HPI Eyes: No Pain, No Vision change, No Conjunctivae inflammation, No Eyelid inflammation, No Other, No Redness Cardiovascular: No Chest Pain, No Palpitations, No Orthopnea, No Paroxysmal Noc. Dyspnea, No Edema, No Lt Headedness, No Other Respiratory: No Cough, No Dry; Shortness of breath; No SOB with excertion, No Wheezing, No Hemoptysis, No Pleuritic Pain, No Sputum, No Other Gastrointestinal: No Nausea, No Vomiting, No Abdominal Pain, No Diarrhea, No Constipation, No Melena, No Hematochezia, No Other Genitourinary: No Dysuria, No Frequency, No Incontinence, No Hematuria, No Retention, No Other Musculoskeletal: No other, No neck pain, No shoulder pain, No arm pain, No back pain, No hand pain, No leg pain, No foot pain Skin: No Rash, No Lesions, No Jaundice, No Bruising, No Other Objective Vitals Vital Signs Date Time Temp Pulse Resp B/P (MAP) Pulse Ox O2 Delivery O2 Flow Rate FiO2 09/05/24 06:49 71 20 126/73 (90) 96 45 09/05/24 06:00 Mechanical Ventilator+ 09/05/24 04:15 98.4 98.4 Intake/Output Intake and Output 09/05/24 07:00 Intake Total 2568.5 ml Output Total 2600 ml Balance -31.5 ml IV Total 2435.5 ml Tube Feeding 133 ml Output Urine Total 2600 ml General Appearance: moderate distress, Other (intubated and sedated ) HEENT: Atraumatic, PERRLA Lungs: Other (Of ventilation. Diminished breath sounds.) Cardiovascular: Regular rate, Normal S1, Normal S2, No murmurs Abdomen: Normal bowel sounds, Soft, No tenderness Genitourinary: No Apparent Abnormalities (Spence catheterization) Musculoskeletal: Other (Unable to assess) Extremities: No edema, Normal pulses, No tenderness/swelling Skin: Dry, Intact Psych/Mental Status: Other (intubated and sedated ) Medications Current Medications Medications Dose Ordered Sig/Feilcitas Route Start Time Stop Time Status Last Admin Dose Admin Albuterol 2.5 mg Q4HR NEB 09/01/24 14:00 09/05/24 06:48 2.5 MG Ipratropium Young 0.5 mg Q4HR NEB 09/01/24 14:00 09/05/24 06:48 0.5 MG Ondansetron HCl 4 mg Q4HP PRN IV 09/01/24 10:30 Nitroglycerin 0.4 mg Q5MINP PRN SL 09/01/24 10:30 Fentanyl Citrate 250 ml @ 2.5 mls/hr Q24H IV 09/01/24 13:30 09/04/24 14:46 35 MLS/HR Midazolam HCl 50 ml @ 1 mls/hr Q24H IV 09/01/24 14:00 09/04/24 17:49 15 MLS/HR Vancomycin HCl 0 ml @ 0 mls/hr UD IV 09/01/24 15:45 Piperacillin Sod/ Tazobactam Sod 100 ml @ 25 mls/hr Q6HR IV 09/01/24 18:00 UNV Piperacillin Sod/ Tazobactam Sod 100 ml @ 25 mls/hr Q6H IV 09/01/24 22:00 09/05/24 03:58 25 MLS/HR Propofol 100 ml @ 4.5 mls/hr [id number] IV 09/02/24 13:00 09/04/24 10:24 13.5 MLS/HR Norepinephrine Bitartrate 250 ml @ 3.75 mls/hr Q24H IV 09/02/24 13:00 09/02/24 13:00 3.75 MLS/HR Furosemide 40 mg DAILY IV 09/03/24 10:00 09/04/24 10:24 40 MG Micafungin Sodium 100 mg/Sodium Chloride 100 ml @ 100 mls/hr DAILY IV 09/03/24 10:00 09/04/24 10:00 100 MLS/HR Methylprednisolone Sodium Succinate 40 mg BID IV 09/04/24 10:00 09/04/24 22:24 40 MG Enteral Nutritional Formula 1,000 ml 40ML/HR GT 09/04/24 08:30 Pantoprazole Sodium 40 mg DAILY IV 09/04/24 10:00 09/04/24 10:24 40 MG Enoxaparin Sodium 40 mg DAILY SC 09/04/24 10:00 09/04/24 10:23 40 MG Acetylcysteine 100 mg Q8HR NEB 09/04/24 14:00 09/05/24 06:49 100 MG Budesonide 0.5 mg BID NEB 09/04/24 10:00 09/05/24 06:48 0.5 MG Vancomycin HCl 300 ml @ 200 mls/hr Q10H IV 09/04/24 10:00 09/05/24 06:21 200 MLS/HR Laboratory Results Laboratory Tests 09/05/24 04:40 Chemistry Test 09/05/24 04:40 Calcium Level 9.2 mg/dL (8.7-10.4) Microbiology Microbiology Date/Time Source Procedure Growth Status 09/02/24 12:30 Blood Blood Culture - Preliminary NO GROWTH AFTER 48 HOURS OF INCUBATION. Resulted 09/01/24 13:00 Sputum Gram Stain - Final Complete 09/01/24 13:00 Sputum Respiratory Culture - Final Complete Labs and/or images reviewed: Labs reviewed by me, Image(s) reviewed by me Assessment/Plan Assessment/Plan Impression: -acute hypoxic and hypercarbic respiratory failure with failure of noninvasive positive pressure ventilation -community-acquired pneumonia, probable Gram-positive/Gram-negative etiology -morbid obesity -nicotine dependence -sepsis -history of schizophrenia -NSTEMI type 2 Plan: Events: Since FiO2 now down to 45%. Decrease PEEP to 10. -pulmonology consultation: Continue recommendations -continue antibiotic therapy with vancomycin, Zosyn, micafungin -Solu-Medrol to 40 mg IV b.i.d. -burrell cultures: Pending -continue DVT prophylaxis -PUD prophylaxis -continue bronchodilators, add Pulmicort, add Mucomyst Patient repeat labs, chest x-ray, ABG in a.m. Critical care time spent with patient discussing and formulating plan of care: 40 minutes. This does not include time spent performing procedures. This medical document was created using an electronic medical record system with [employer] dictation system. Although this document has been carefully reviewed, there may still be some phonetic and typographical errors. These areas are purely typographical due to imperfections of the software programs, and do not reflect any compromise in the patient's medical care. Plan discussed with: Patient, Other (RN) My Orders Orders - ZUHAIR GUILLORY [employer]UST[employer] ENGINEERING TECHNICIAN Procedure Category Date Status Time Methylprednisolone PHA 09/04/24 In Process Sod Succ (Solu Medrol 10:00 Nutritional PHA 09/04/24 In Process Supplements (Glucerna 08:30 Pantoprazole PHA 09/04/24 In Process (Protonix) 10:00 Enoxaparin Sodium PHA 09/04/24 In Process (Lovenox) 10:00 Acetylcysteine PHA 09/04/24 In Process Inhalation 10% 14:00 Budesonide PHA 09/04/24 In Process (Inhalation) 10:00 Ventilator Orders RT 09/05/24 Verified 07:52 Abg W/ Co-Ox RT 09/06/24 Verified 04:00 Date of Service: Sep 05, 2024 Billing Provider: ZUHAIR GUILLORY NP Common Visit Codes: [id number] CARE 30-74 MIN ZUHAIR GUILLORY NP Sep 05, 2024 07:55
[2024-09-05 08:38] LABS: Base Excess 1.5 mmol/L (-2.0-3.0)
[2024-09-05] MEDS: IOHEXOL 350 MG/ML 100ML IJ ONE (12:26)
--- NOTE | 2024-09-05 20:44 | DVHPN2 ---
Progress Note - Dictate Date Seen: Sep 05, 2024 Medical Necessity Reason Pt with a Central, PICC or Fol: Yes The following are medically ne: Teague Catheter Reason for teague catheter: Strict I&O Subjective Patient seen and examined at bedside. Sedated, intubated on mechanical ventilator. Overnight events reviewed. vital signs Vital Sign Date Time Temp Pulse Resp B/P (MAP) Pulse Ox O2 Delivery O2 Flow Rate FiO2 09/05/24 19:00 142/82 09/05/24 18:50 68 20 93 45 09/05/24 18:15 98.6 98.6 09/05/24 07:30 Mechanical Ventilator+ Total Intake and Output 09/04/24 09/04/24 09/05/24 14:59 22:59 06:59 Intake Total 1008.0 ml 508.0 ml 1116.0 ml Output Total 1350 ml 1250 ml Balance 1008.0 ml -842.0 ml -134.0 ml medications Current Medications Medications Dose Ordered Sig/Felicitas Route Start Time Stop Time Status Last Admin Dose Admin Albuterol 2.5 mg Q4HR NEB 09/01/24 14:00 09/05/24 18:41 2.5 MG Ipratropium [place] 0.5 mg Q4HR NEB 09/01/24 14:00 09/05/24 18:41 0.5 MG Ondansetron HCl 4 mg Q4HP PRN IV 09/01/24 10:30 Nitroglycerin 0.4 mg Q5MINP PRN SL 09/01/24 10:30 Fentanyl Citrate 250 ml @ 2.5 mls/hr Q24H IV 09/01/24 13:30 09/05/24 11:36 35 MLS/HR Midazolam HCl 50 ml @ 1 mls/hr Q24H IV 09/01/24 14:00 09/05/24 15:00 15 MLS/HR Vancomycin HCl 0 ml @ 0 mls/hr UD IV 09/01/24 15:45 Piperacillin Sod/ Tazobactam Sod 100 ml @ 25 mls/hr Q6HR IV 09/01/24 18:00 UNV Piperacillin Sod/ Tazobactam Sod 100 ml @ 25 mls/hr Q6H IV 09/01/24 22:00 09/05/24 16:14 25 MLS/HR Propofol 100 ml @ 4.5 mls/hr [id number] IV 09/02/24 13:00 09/05/24 11:30 13.5 MLS/HR Norepinephrine Bitartrate 250 ml @ 3.75 mls/hr Q24H IV 09/02/24 13:00 09/02/24 13:00 3.75 MLS/HR Furosemide 40 mg DAILY IV 09/03/24 10:00 09/05/24 11:51 40 MG Micafungin Sodium 100 mg/Sodium Chloride 100 ml @ 100 mls/hr DAILY IV 09/03/24 10:00 09/05/24 12:11 100 MLS/HR Methylprednisolone Sodium Succinate 40 mg BID IV 09/04/24 10:00 09/05/24 11:50 40 MG Enteral Nutritional Formula 1,000 ml 40ML/HR GT 09/04/24 08:30 Pantoprazole Sodium 40 mg DAILY IV 09/04/24 10:00 09/05/24 11:50 40 MG Enoxaparin Sodium 40 mg DAILY SC 09/04/24 10:00 09/05/24 11:50 40 MG Acetylcysteine 100 mg Q8HR NEB 09/04/24 14:00 09/05/24 14:01 100 MG Budesonide 0.5 mg BID NEB 09/04/24 10:00 09/05/24 06:48 0.5 MG Vancomycin HCl 300 ml @ 200 mls/hr Q10H IV 09/04/24 10:00 09/05/24 16:14 200 MLS/HR objective Gen.: Patient lying in bed in medical ICU. Sedated, intubated on mechanical ventilator. Head: Normocephalic, atraumatic. Eyes: PERRLA. Ears: Normal external anatomy. Throat: Endotracheal tube and orogastric tube in place. Neck: Supple, trachea midline. Chest: Transmitted breath sounds bilaterally. Decreased air entry bilaterally. No wheezing. Bibasilar crackles. Cardiovascular: Positive S1, positive S2. Regular rate and rhythm. Abdomen: Positive bowel sounds in all 4 quadrants. Soft, nontender, nondistended. : Teague in place. Normal external genitalia. Rectal: Deferred. Skin: Warm, dry. Intact. Extremities: 2+ radial pulses bilaterally. No lower extremity edema. Neuro: Sedated. laboratory and microbiology Laboratory Tests 09/05/24 04:40 Test 09/05/24 04:40 Range/Units Serum Glucose 353 H 74-106 mg/dL Assessment/Plan Impression: Acute hypoxic respiratory failure Acute hypercarbic respiratory failure On mechanical ventilator Pleural effusions Atelectasis Morbid obesity with a BMI of 44.8 Pulmonary edema Acute exacerbation of COPD vs Asthma Elevated troponin Events: Remains on vent support On assist control with respiratory rate of 20, tidal volume 600, PEEP of 12, FiO2 at 45%. Improving FiO2 requirements Decrease PEEP to 10 cmH2O Pt is improved post therapeutic bronchoscopy. Sedated on Fentanyl, Versed, Propofol Off Levophed, hemodynamically stable. ABG reviewed, compensated. CXR reviewed, demonstrates patchy bilateral lower lobe airspace opacities, slightly improved. No effusion or pneumothorax. Continue bronchodilators Continue antibiotics IV steroids Continue antifungal Monitor WBC Diurese w/ Lasix as tolerated Monitor renal function Monitor electrolytes. Supplement as necessary. S/p therapeutic bronchoscopy on 09/03/24 with RML BAL - Mucous plugging R1-R10 and L1-L10. See separate procedure note for details. Labs and imaging reviewed. Rest of plan as noted below. Plan: s/p intubation on mechanical ventilator COVID, influenza negative. On assist control with respiratory rate of 20, tidal volume 600, PEEP of 12 -->10, FiO2 at 45%. Titrate FIO2 to keep O2 saturation between 88-94%. VAP bundle Daily ABG and CXR while intubated. Sedate for ventilatory synchrony Bronchodilators IV Steroids Pressors if necessary for hemodynamic support. Titrate to keep MAP above 65 mmHg/SBP above 90 mmHg. F/u Echo to evaluate LVEF, RVSP and r/o valvular dysfunction. F/u Cardiology recommendations Plan for CTA of chest to r/o PE. Continue antibiotics. Zosyn/Vancomycin F/u cultures. Monitor renal function due to Acute kidney injury. Monitor electrolytes. Supplement as necessary. Nutritional support. Accu-Cheks, ISS. Morbid obesity, complicates all care. Diet and lifestyle modifications for weight reduction recommended. GI/DVT prophylaxis. Condition: Critical Prognosis: Poor given multiple comorbidities. Rest of plan per hospitalist and other consultants. A total of 35 minutes of critical care time was spent reviewing the patient record, examining the patient, making a diagnostic and therapeutic plan, discussing this plan with the medical personnel, following up on diagnostic studies and following the patient for clinical stability excluding any and all procedures. At least 50% of this time was spent in direct, [id number] contact. Thank you ANAHI Montoya for allowing me to participate in this patient's care. Further recommendations will depend on patient's clinical course. Please do not hesitate to contact me if you have any questions or concerns. This medical document was created using an electronic medical record system with [employer] dictation system. Although this document has been carefully reviewed, there may still be some phonetic and typographical errors. These areas are purely typographical due to imperfections of the software programs, and do not reflect any compromise in the patient's medical care. Plan discussed with: Other (FERNANDO Cui) Critical Care Time(min): 35 LIZ GUDINO MD Sep 05, 2024 20:44
[2024-09-06] VITALS (97 sets, daily range): BP systolic 109–163; BP diastolic 66–97; PULSE 57–94; RESP 16–21; TEMP 97.5–98.8; O2SAT 91–98
[2024-09-06] MEDS: IOHEXOL 350 MG/ML 100ML IJ ONE (00:35)
[2024-09-06] MEDS: VANCOMYCIN 1GM/250ML KIT 500 ML IV ONE (02:14)
[2024-09-06 04:08] LABS: Basophils # (auto) 0 10 ^3/uL (0-0.2); Basophils % (auto) 0.1 % (0.0-2.0); Eosinophils # (auto) 0 10 ^3/uL (0-0.8); Hemoglobin 15.8 g/dL (13.5-17.5); Lymphocytes # (auto) 1.2 10 ^3/uL (0.4-5.4); Lymphocytes % (auto) 6.8 % (10.0-50.0); Mean Corpuscular Hemoglobin 30.3 pg (28.0-32.0); Mean Corpuscular Hgb Conc. 32.2 g/dL (32.0-36.0); Mean Corpuscular Volume 94.1 fL (80.0-100.0); Monocytes # (auto) 1.5 10 ^3/uL (0-1.3); Monocytes % (auto) 8.5 % (0.0-12.0); Neutrophils # (auto) 14.7 10 ^3/uL (1.6-8.6); Neutrophils % (auto) 84.6 % (37.0-80.0); Platelet Count (auto) 274 10^3/uL (140-450); Red Blood Cells 5.21 10^6/uL (4.5-5.90); Red Cell Distribution Width 14.5 % (11.8-14.3); White Blood Cell 17.4 10^3/uL (4.4-10.8)
[2024-09-06 04:17] LABS: Anion Gap 6 (5-15); Carbon Dioxide 27 mmol/L (20-31); Potassium 4.2 mmol/L (3.5-5.1); Sodium 141 mmol/L (136-145)
[2024-09-06 04:18] LABS: Calcium 9.6 mg/dL (8.7-10.4)
--- NOTE | 2024-09-06 04:21 | DVH ---
Examination: CTACH CLINICAL INDICATION: EVALUATE FOR PE COMPARISON: None. CONTRAST USED: Intravenous. TECHNIQUE: Technique for this CT scan was done using principles of ALARA (As Low As Reasonably Achiev able). Multiplanar reconstructions were obtained. CT pulmonary angiogram has been performed by obtain ing 5 mm. axial sections at 1 mm. collimation after intravenous injection of nonionic contrast. Retro spective 3D reconstruction in MIP and MPR format has been performed. FINDINGS: Mildly enlarged thyroid gland with heterogenous coarse attenuation and multiple small hypodense lesio ns scattered in both lobes consistent with changes of multinodular goiter. Rest of the visualized low er neck appears unremarkable. The pulmonary trunk measures 29 mm. The right and left main pulmonary arteries are normal in origin, course and caliber. Both these vesse ls show good contrast opacification and measure approximately 2 cm. in diameter each. The visualized descending and inter lobar pulmonary arteries show normal contrast opacification. Ther e is no obvious intraluminal filling defect observed. The trachea and the main stem bronchi appear normal. Borderline cardiomegaly. No evidence of pericardial effusion. No mediastinal lymph nodes seen. Endotracheal tube is identified approximately 3.1 cm from the alf. Subsegmental atelectasis in th e lingula, superior posterior basal segment of bilateral lower lobes with air bronchograms within. M inimal bilateral pleural effusion. No evidence of pneumothorax. Mild degenerative changes in the thoracic spine, acromioclavicular and glenohumeral joint. No acute osseous abnormality or focal osseous lesion. Gallbladder is not imaged. Adrenal glands: Unremarkable. Liver: Moderate hepatomegaly with diffuse fatty infiltration of liver. Spleen: Visualized and unremarkable. Pancreas: Unremarkable. Kidneys: Visualized portion of the bilateral kidneys appear unremarkable. Nasogastric tube is identified with tip in the distal gastric body. Impression: 1. Normal contrast opacification of the pulmonary vasculature. No obvious evidence of pulmonary emb olism. 2. Borderline cardiomegaly. No pericardial effusion. 3. Endotracheal tube is identified approximately 3.1 cm from the alf. Subsegmental atelectasis i n the lingula, superior posterior basal segment of bilateral lower lobes with air bronchograms within . Minimal bilateral pleural effusion. No evidence of pneumothorax. 4. Moderate amount of edema diffuse fatty infiltration of liver. No discrete focal lesion in liver. 5. Mildly enlarged thyroid gland with heterogeneous coarse attenuation and multiple small hypodense lesions scattered in both lobes consistent with changes of multinodular goiter. Suggest further eval uation with ultrasound. Electronically Signed 09/06/2024 04:20 Denny Zheng
[2024-09-06 04:23] LABS: BUN/Creatinine Ratio 20.2 (10.0-20.0); Blood Urea Nitrogen 22 mg/dL (9-23)
[2024-09-06 04:32] LABS: Chloride 108 mmol/L (98-107); Glucose 366 mg/dL (74-106)
--- NOTE | 2024-09-06 05:38 | DVH ---
CHEST RADIOGRAPH Indication: pneumonia Technique: Single frontal view of the chest was obtained Comparison: XY CHEST PORTABLE on DOS: 09/05/24, XY CHEST PORTABLE on DOS: 09/04/24, XY CHEST PORTABLE on DOS: 09/03/24 IMPRESSION: The heart appears stable in size. Subsegmental atelectasis in the left lower lung. No sizable effusi on or pneumothorax. Mild pulmonary vascular congestion. Support lines and tubes appear unchanged in satisfactory position.
[2024-09-06 07:03] LABS: Base Excess 0.8 mmol/L (-2.0-3.0)
--- NOTE | 2024-09-06 08:51 | DVHPN2 ---
Subjective Intubate and chemically sedated. Reviewed: Care Plan, H&P, Labs, Medications, Previous Orders, Radiology Changes from previous H/P or p: No Changes General: Per HPI Eyes: No Pain, No Vision change, No Conjunctivae inflammation, No Eyelid inflammation, No Other, No Redness Cardiovascular: No Chest Pain, No Palpitations, No Orthopnea, No Paroxysmal Noc. Dyspnea, No Edema, No Lt Headedness, No Other Respiratory: No Cough, No Dry; Shortness of breath; No SOB with excertion, No Wheezing, No Hemoptysis, No Pleuritic Pain, No Sputum, No Other Gastrointestinal: No Nausea, No Vomiting, No Abdominal Pain, No Diarrhea, No Constipation, No Melena, No Hematochezia, No Other Genitourinary: No Dysuria, No Frequency, No Incontinence, No Hematuria, No Retention, No Other Musculoskeletal: No other, No neck pain, No shoulder pain, No arm pain, No back pain, No hand pain, No leg pain, No foot pain Skin: No Rash, No Lesions, No Jaundice, No Bruising, No Other Objective Vitals Vital Signs Date Time Temp Pulse Resp B/P (MAP) Pulse Ox O2 Delivery O2 Flow Rate FiO2 09/06/24 08:19 81 20 126/69 (88) 94 50 09/06/24 07:00 98.4 209.1 09/06/24 06:00 Mechanical Ventilator+ Intake/Output Intake and Output 09/06/24 07:00 Intake Total 1116.0 ml Output Total 900 ml Balance 216.0 ml Intake Oral 0 ml IV Total 1026.0 ml Tube Feeding 90 ml Output Urine Total 900 ml General Appearance: moderate distress, Other (intubated and sedated ) HEENT: Atraumatic, PERRLA Lungs: Other (Of ventilation. Diminished breath sounds.) Cardiovascular: Regular rate, Normal S1, Normal S2, No murmurs Abdomen: Normal bowel sounds, Soft, No tenderness Genitourinary: No Apparent Abnormalities (Spence catheterization) Musculoskeletal: Other (Unable to assess) Extremities: No edema, Normal pulses, No tenderness/swelling Skin: Dry, Intact Psych/Mental Status: Other (intubated and sedated ) Medications Current Medications Medications Dose Ordered Sig/Felicitas Route Start Time Stop Time Status Last Admin Dose Admin Albuterol 2.5 mg Q4HR NEB 09/01/24 14:00 09/06/24 06:08 2.5 MG Ipratropium [place] 0.5 mg Q4HR NEB 09/01/24 14:00 09/06/24 06:08 0.5 MG Ondansetron HCl 4 mg Q4HP PRN IV 09/01/24 10:30 Nitroglycerin 0.4 mg Q5MINP PRN SL 09/01/24 10:30 Fentanyl Citrate 250 ml @ 2.5 mls/hr Q24H IV 09/01/24 13:30 09/06/24 06:55 35 MLS/HR Midazolam HCl 50 ml @ 1 mls/hr Q24H IV 09/01/24 14:00 09/06/24 05:30 15 MLS/HR Vancomycin HCl 0 ml @ 0 mls/hr UD IV 09/01/24 15:45 Piperacillin Sod/ Tazobactam Sod 100 ml @ 25 mls/hr Q6HR IV 09/01/24 18:00 UNV Piperacillin Sod/ Tazobactam Sod 100 ml @ 25 mls/hr Q6H IV 09/01/24 22:00 09/06/24 03:53 25 MLS/HR Propofol 100 ml @ 4.5 mls/hr [id number] IV 09/02/24 13:00 09/06/24 05:31 9 MLS/HR Norepinephrine Bitartrate 250 ml @ 3.75 mls/hr Q24H IV 09/02/24 13:00 09/02/24 13:00 3.75 MLS/HR Furosemide 40 mg DAILY IV 09/03/24 10:00 09/05/24 11:51 40 MG Micafungin Sodium 100 mg/Sodium Chloride 100 ml @ 100 mls/hr DAILY IV 09/03/24 10:00 09/05/24 12:11 100 MLS/HR Methylprednisolone Sodium Succinate 40 mg BID IV 09/04/24 10:00 09/05/24 21:47 40 MG Enteral Nutritional Formula 1,000 ml 40ML/HR GT 09/04/24 08:30 Pantoprazole Sodium 40 mg DAILY IV 09/04/24 10:00 09/05/24 11:50 40 MG Enoxaparin Sodium 40 mg DAILY SC 09/04/24 10:00 09/05/24 11:50 40 MG Acetylcysteine 100 mg Q8HR NEB 09/04/24 14:00 09/06/24 06:08 100 MG Budesonide 0.5 mg BID NEB 09/04/24 10:00 09/05/24 21:56 0.5 MG Vancomycin HCl 300 ml @ 200 mls/hr Q10H IV 09/04/24 10:00 09/06/24 02:14 200 MLS/HR Laboratory Results Laboratory Tests 09/06/24 03:00 Chemistry Test 09/06/24 03:00 Calcium Level 9.6 mg/dL (8.7-10.4) Magnesium Level 2.9 mg/dL (1.6-2.6) #H Blood Gas Results Test 09/06/24 06:51 Arterial Blood pH 7.391 (7.350-7.450) FiO2 % 50.0 Microbiology Microbiology Date/Time Source Procedure Growth Status 09/03/24 18:40 Bronchial Washings Gram Stain Pending Resulted 09/03/24 18:40 Bronchial Washings Respiratory Culture - Preliminary Resulted 09/02/24 12:30 Blood Blood Culture - Preliminary NO GROWTH AFTER 72 HOURS OF INCUBATION. Resulted Labs and/or images reviewed: Labs reviewed by me, Image(s) reviewed by me Assessment/Plan Assessment/Plan Impression: -acute hypoxic and hypercarbic respiratory failure with failure of noninvasive positive pressure ventilation -community-acquired pneumonia, probable Gram-positive/Gram-negative etiology -morbid obesity -nicotine dependence -sepsis -history of schizophrenia -NSTEMI type 2 Plan: Events: Since FiO2 now down to 50%. PEEP 8. -pulmonology consultation: Continue recommendations -continue antibiotic therapy with vancomycin, Zosyn, micafungin -Solu-Medrol to 40 mg IV b.i.d. -burrell cultures: Pending -continue DVT prophylaxis -PUD prophylaxis -continue bronchodilators, add Pulmicort, add Mucomyst Patient repeat labs, chest x-ray, ABG in a.m. Critical care time spent with patient discussing and formulating plan of care: 40 minutes. This does not include time spent performing procedures. This medical document was created using an electronic medical record system with [employer] system. Although this document has been carefully reviewed, there may still be some phonetic and typographical errors. These areas are purely typographical due to imperfections of the software programs, and do not reflect any compromise in the patient's medical care. Plan discussed with: Patient, Other (RN) My Orders Orders - ZUHAIR GUILLORY NP Procedure Category Date Status Time Mrsa Screen MEGHAN 09/06/24 In Process 01:53 Date of Service: Sep 06, 2024 Billing Provider: ZUHAIR GUILLORY NP Common Visit Codes: [id number] CARE 30-74 MIN ZUHAIR GUILLORY NP Sep 06, 2024 08:50
[2024-09-06] MEDS ORDERED: DEXTROSE (50%) 50ML SYRG IV PRN (09:00)
[2024-09-06] MEDS: InsuLIN REG 1unit/0.01ml Soln (100units/ml) SC SCH (12:34)
[2024-09-06] MEDS: ACCU-CHEK COMFORT CURVE STRIP VI SCH (13:21)
--- NOTE | 2024-09-06 23:29 | DVHPN2 ---
Progress Note - Dictate Date Seen: Sep 06, 2024 Medical Necessity Reason Pt with a Central, PICC or Fol: Yes The following are medically ne: Teague Catheter Reason for teague catheter: Strict I&O Subjective Patient seen and examined at bedside. Sedated, intubated on mechanical ventilator. Overnight events reviewed. vital signs Vital Sign Date Time Temp Pulse Resp B/P (MAP) Pulse Ox O2 Delivery O2 Flow Rate FiO2 09/06/24 23:15 98.2 71 20 128/74 (92) 94 208.8 09/06/24 22:00 Mechanical Ventilator+ 50 50 Total Intake and Output 09/05/24 09/05/24 09/06/24 15:00 23:00 07:00 Intake Total 200 ml 190 ml 785.0 ml Output Total 900 ml Balance 200 ml -710 ml 785.0 ml medications Current Medications Medications Dose Ordered Sig/Felicitas Route Start Time Stop Time Status Last Admin Dose Admin Albuterol 2.5 mg Q4HR NEB 09/01/24 14:00 09/06/24 21:57 2.5 MG Ipratropium [place] 0.5 mg Q4HR NEB 09/01/24 14:00 09/06/24 21:57 0.5 MG Ondansetron HCl 4 mg Q4HP PRN IV 09/01/24 10:30 Nitroglycerin 0.4 mg Q5MINP PRN SL 09/01/24 10:30 Fentanyl Citrate 250 ml @ 2.5 mls/hr Q24H IV 09/01/24 13:30 09/06/24 20:53 35 MLS/HR Midazolam HCl 50 ml @ 1 mls/hr Q24H IV 09/01/24 14:00 09/06/24 20:50 15 MLS/HR Vancomycin HCl 0 ml @ 0 mls/hr UD IV 09/01/24 15:45 Piperacillin Sod/ Tazobactam Sod 100 ml @ 25 mls/hr Q6HR IV 09/01/24 18:00 UNV Piperacillin Sod/ Tazobactam Sod 100 ml @ 25 mls/hr Q6H IV 09/01/24 22:00 09/06/24 21:41 25 MLS/HR Propofol 100 ml @ 4.5 mls/hr [id number] IV 09/02/24 13:00 09/06/24 20:51 9 MLS/HR Norepinephrine Bitartrate 250 ml @ 3.75 mls/hr Q24H IV 09/02/24 13:00 09/02/24 13:00 3.75 MLS/HR Furosemide 40 mg DAILY IV 09/03/24 10:00 09/06/24 10:08 40 MG Micafungin Sodium 100 mg/Sodium Chloride 100 ml @ 100 mls/hr DAILY IV 09/03/24 10:00 09/06/24 10:21 100 MLS/HR Enteral Nutritional Formula 1,000 ml 40ML/HR GT 09/04/24 08:30 Pantoprazole Sodium 40 mg DAILY IV 09/04/24 10:00 09/06/24 10:08 40 MG Enoxaparin Sodium 40 mg DAILY SC 09/04/24 10:00 09/06/24 10:10 40 MG Acetylcysteine 100 mg Q8HR NEB 09/04/24 14:00 09/06/24 21:57 100 MG Budesonide 0.5 mg BID NEB 09/04/24 10:00 09/06/24 21:57 0.5 MG Vancomycin HCl 300 ml @ 200 mls/hr Q10H IV 09/04/24 10:00 09/06/24 22:31 200 MLS/HR Diagnostic Test (Pha) 1 strip IQ4HR 09/06/24 12:00 09/06/24 19:56 1 STRIP Insulin Human Regular IQ4HR SC 09/06/24 12:00 09/06/24 19:58 12 UNITS Dextrose 50 ml UD PRN IV 09/06/24 09:00 Methylprednisolone Sodium Succinate 40 mg DAILY IV 09/07/24 10:00 objective Gen.: Patient lying in bed in medical ICU. Sedated, intubated on mechanical ventilator. Head: Normocephalic, atraumatic. Eyes: PERRLA. Ears: Normal external anatomy. Throat: Endotracheal tube and orogastric tube in place. Neck: Supple, trachea midline. Chest: Transmitted breath sounds bilaterally. Decreased air entry bilaterally. No wheezing. Bibasilar crackles. Cardiovascular: Positive S1, positive S2. Regular rate and rhythm. Abdomen: Positive bowel sounds in all 4 quadrants. Soft, nontender, nondistended. : Teague in place. Normal external genitalia. Rectal: Deferred. Skin: Warm, dry. Intact. Extremities: 2+ radial pulses bilaterally. No lower extremity edema. Neuro: Sedated. laboratory and microbiology Laboratory Tests 09/06/24 03:00 Test 09/06/24 03:00 Range/Units Serum Glucose 366 H 74-106 mg/dL Assessment/Plan Impression: Acute hypoxic respiratory failure Acute hypercarbic respiratory failure On mechanical ventilator Pleural effusions Atelectasis Morbid obesity with a BMI of 44.8 Pulmonary edema Acute exacerbation of COPD vs Asthma Elevated troponin Events: Remains on vent support On assist control with respiratory rate of 20, tidal volume 600, PEEP of 8, FiO2 at 50%. Improving PEEP requirements. Pt is improved post therapeutic bronchoscopy. Sedated on Fentanyl, Versed, Propofol Off Levophed, hemodynamically stable. ABG reviewed, compensated. CXR reviewed, demonstrates patchy bilateral lower lobe airspace opacities, slightly improved. No effusion or pneumothorax. CT of the chest report and images reviewed. No acute pulmonary embolism. Devices in place. Atelectasis of the lingula superior posterior basal segment and bilateral lower lobes with air bronchograms with them. Minimal bilateral pleural effusions. Atelectasis. Fatty liver disease. Continue bronchodilators Continue antibiotics IV steroids Continue antifungal Monitor WBC Diurese w/ Lasix as tolerated Monitor renal function Monitor electrolytes. Supplement as necessary. Labs and imaging reviewed. Rest of plan as noted below. Plan: s/p intubation on mechanical ventilator COVID, influenza negative. On assist control with respiratory rate of 20, tidal volume 600, PEEP of 12 -->10, FiO2 at 45%. Titrate FIO2 to keep O2 saturation between 88-94%. VAP bundle Daily ABG and CXR while intubated. Sedate for ventilatory synchrony Bronchodilators IV Steroids Pressors if necessary for hemodynamic support. Titrate to keep MAP above 65 mmHg/SBP above 90 mmHg. F/u Echo to evaluate LVEF, RVSP and r/o valvular dysfunction. F/u Cardiology recommendations Plan for CTA of chest to r/o PE. Continue antibiotics. Zosyn/Vancomycin F/u cultures. Monitor renal function due to Acute kidney injury. Monitor electrolytes. Supplement as necessary. Nutritional support. Accu-Cheks, ISS. Morbid obesity, complicates all care. Diet and lifestyle modifications for weight reduction recommended. GI/DVT prophylaxis. Condition: Critical Prognosis: Poor given multiple comorbidities. Rest of plan per hospitalist and other consultants. A total of 35 minutes of critical care time was spent reviewing the patient record, examining the patient, making a diagnostic and therapeutic plan, discussing this plan with the medical personnel, following up on diagnostic studies and following the patient for clinical stability excluding any and all procedures. At least 50% of this time was spent in direct, [id number] contact. Thank you ANAHI Montoya for allowing me to participate in this patient's care. Further recommendations will depend on patient's clinical course. Please do not hesitate to contact me if you have any questions or concerns. This medical document was created using an electronic medical record system with [employer] dictation system. Although this document has been carefully reviewed, there may still be some phonetic and typographical errors. These areas are purely typographical due to imperfections of the software programs, and do not reflect any compromise in the patient's medical care. Plan discussed with: Other (RN, RT, ROLL FORMER) Critical Care Time(min): 35 LIZ GUDINO MD Sep 06, 2024 23:29
[2024-09-07] VITALS (106 sets, daily range): BP systolic 85–139; BP diastolic 44–78; PULSE 60–102; RESP 15–21; TEMP 98.2–99.1; O2SAT 87–97
[2024-09-07 04:15] LABS: Basophils # (auto) 0 10 ^3/uL (0-0.2); Basophils % (auto) 0.1 % (0.0-2.0); Eosinophils # (auto) 0 10 ^3/uL (0-0.8); Eosinophils % (auto) 0.2 % (0.0-7.0); Hematocrit 48.1 % (41.0-53.0); Hemoglobin 15.6 g/dL (13.5-17.5); Lymphocytes # (auto) 1.5 10 ^3/uL (0.4-5.4); Lymphocytes % (auto) 9.5 % (10.0-50.0); Mean Corpuscular Hemoglobin 30.5 pg (28.0-32.0); Mean Corpuscular Hgb Conc. 32.4 g/dL (32.0-36.0); Mean Corpuscular Volume 93.9 fL (80.0-100.0); Monocytes # (auto) 1.2 10 ^3/uL (0-1.3); Monocytes % (auto) 7.6 % (0.0-12.0); Neutrophils # (auto) 13.1 10 ^3/uL (1.6-8.6); Neutrophils % (auto) 82.6 % (37.0-80.0); Platelet Count (auto) 261 10^3/uL (140-450); Red Blood Cells 5.12 10^6/uL (4.5-5.90); Red Cell Distribution Width 14.4 % (11.8-14.3); White Blood Cell 15.9 10^3/uL (4.4-10.8)
[2024-09-07 04:20] LABS: Anion Gap 7 (5-15); Carbon Dioxide 29 mmol/L (20-31); Potassium 4.3 mmol/L (3.5-5.1); Sodium 145 mmol/L (136-145)
[2024-09-07 04:21] LABS: Calcium 9.8 mg/dL (8.7-10.4)
[2024-09-07 04:26] LABS: BUN/Creatinine Ratio 18.9 (10.0-20.0); Blood Urea Nitrogen 21 mg/dL (9-23)
[2024-09-07 04:29] LABS: Chloride 109 mmol/L (98-107); Free T3 2.03 pg/mL (2.3-4.2); Free T4 (Free Thyroxine) 1.03 ng/dL (0.89-1.76); Glucose 263 mg/dL (74-106)
--- NOTE | 2024-09-07 05:03 | DVH ---
CHEST RADIOGRAPH Indication: VENTED Technique: Single frontal view of the chest was obtained COMPARISON: XY CHEST PORTABLE on DOS: 09/06/24, XY CHEST PORTABLE on DOS: 09/05/24, XY CHEST PORTABLE on DOS: 09/04/24, XY CHEST PORTABLE on DOS: 09/03/24, XY CHEST PORTABLE on DOS: 09/02/24, XY CHEST P ORTABLE on DOS: 09/05/24 FINDINGS: Lines and Tubes: Endotracheal tube, enteric catheter and right central venous catheter in satisfactor y position. Lungs: Patchy bilateral lower lobe airspace disease. Pleura: No effusion. No pneumothorax. Cardiomediastinal contours: Unremarkable Bones: Unremarkable IMPRESSION: Lines and tubes in satisfactory position. No significant interval change.
[2024-09-07 07:46] LABS: Base Excess 1.8 mmol/L (-2.0-3.0)
--- NOTE | 2024-09-07 07:55 | DVHPN2 ---
Subjective Intubate and chemically sedated. Reviewed: Care Plan, H&P, Labs, Medications, Previous Orders, Radiology Changes from previous H/P or p: No Changes General: Per HPI Eyes: No Pain, No Vision change, No Conjunctivae inflammation, No Eyelid inflammation, No Other, No Redness Cardiovascular: No Chest Pain, No Palpitations, No Orthopnea, No Paroxysmal Noc. Dyspnea, No Edema, No Lt Headedness, No Other Respiratory: No Cough, No Dry; Shortness of breath; No SOB with excertion, No Wheezing, No Hemoptysis, No Pleuritic Pain, No Sputum, No Other Gastrointestinal: No Nausea, No Vomiting, No Abdominal Pain, No Diarrhea, No Constipation, No Melena, No Hematochezia, No Other Genitourinary: No Dysuria, No Frequency, No Incontinence, No Hematuria, No Retention, No Other Musculoskeletal: No other, No neck pain, No shoulder pain, No arm pain, No back pain, No hand pain, No leg pain, No foot pain Skin: No Rash, No Lesions, No Jaundice, No Bruising, No Other Objective Vitals Vital Signs Date Time Temp Pulse Resp B/P (MAP) Pulse Ox O2 Delivery O2 Flow Rate FiO2 09/07/24 07:48 78 20 107/54 (71) 93 45 09/07/24 07:00 98.6 209.5 09/07/24 06:00 Mechanical Ventilator+ Intake/Output Intake and Output 09/07/24 07:00 Intake Total 2168.0 ml Output Total 5025 ml Balance -2857.0 ml IV Total 2168.0 ml Output Urine Total 5025 ml General Appearance: moderate distress, Other (intubated and sedated ) HEENT: Atraumatic, PERRLA Lungs: Other (Of ventilation. Diminished breath sounds.) Cardiovascular: Regular rate, Normal S1, Normal S2, No murmurs Abdomen: Normal bowel sounds, Soft, No tenderness Genitourinary: No Apparent Abnormalities (Spence catheterization) Musculoskeletal: Other (Unable to assess) Extremities: No edema, Normal pulses, No tenderness/swelling Skin: Dry, Intact Psych/Mental Status: Other (intubated and sedated ) Medications Current Medications Medications Dose Ordered Sig/Felicitas Route Start Time Stop Time Status Last Admin Dose Admin Albuterol 2.5 mg Q4HR NEB 09/01/24 14:00 09/07/24 05:58 2.5 MG Ipratropium [place] 0.5 mg Q4HR NEB 09/01/24 14:00 09/07/24 05:58 0.5 MG Ondansetron HCl 4 mg Q4HP PRN IV 09/01/24 10:30 Nitroglycerin 0.4 mg Q5MINP PRN SL 09/01/24 10:30 Fentanyl Citrate 250 ml @ 2.5 mls/hr Q24H IV 09/01/24 13:30 09/07/24 04:01 27.5 MLS/HR Midazolam HCl 50 ml @ 1 mls/hr Q24H IV 09/01/24 14:00 09/07/24 05:06 13 MLS/HR Vancomycin HCl 0 ml @ 0 mls/hr UD IV 09/01/24 15:45 Piperacillin Sod/ Tazobactam Sod 100 ml @ 25 mls/hr Q6HR IV 09/01/24 18:00 UNV Piperacillin Sod/ Tazobactam Sod 100 ml @ 25 mls/hr Q6H IV 09/01/24 22:00 09/07/24 04:01 25 MLS/HR Propofol 100 ml @ 4.5 mls/hr [id number] IV 09/02/24 13:00 09/06/24 20:51 9 MLS/HR Norepinephrine Bitartrate 250 ml @ 3.75 mls/hr Q24H IV 09/02/24 13:00 09/02/24 13:00 3.75 MLS/HR Furosemide 40 mg DAILY IV 09/03/24 10:00 09/06/24 10:08 40 MG Micafungin Sodium 100 mg/Sodium Chloride 100 ml @ 100 mls/hr DAILY IV 09/03/24 10:00 09/06/24 10:21 100 MLS/HR Enteral Nutritional Formula 1,000 ml 40ML/HR GT 09/04/24 08:30 Pantoprazole Sodium 40 mg DAILY IV 09/04/24 10:00 09/06/24 10:08 40 MG Enoxaparin Sodium 40 mg DAILY SC 09/04/24 10:00 09/06/24 10:10 40 MG Acetylcysteine 100 mg Q8HR NEB 09/04/24 14:00 09/07/24 05:58 100 MG Budesonide 0.5 mg BID NEB 09/04/24 10:00 09/07/24 06:01 0.5 MG Vancomycin HCl 300 ml @ 200 mls/hr Q10H IV 09/04/24 10:00 09/06/24 22:31 200 MLS/HR Diagnostic Test (Pha) 1 strip IQ4HR 09/06/24 12:00 09/07/24 04:01 1 STRIP Insulin Human Regular IQ4HR SC 09/06/24 12:00 09/07/24 04:07 9 UNITS Dextrose 50 ml UD PRN IV 09/06/24 09:00 Methylprednisolone Sodium Succinate 40 mg DAILY IV 09/07/24 10:00 Insulin Glargine 15 units DAILY@1000 SC 09/07/24 10:00 Laboratory Results Laboratory Tests 09/07/24 03:25 Chemistry Test 09/07/24 03:25 Calcium Level 9.8 mg/dL (8.7-10.4) Blood Gas Results Test 09/07/24 07:21 Arterial Blood pH 7.436 (7.350-7.450) FiO2 % 50.0 Microbiology Microbiology Date/Time Source Procedure Growth Status 09/06/24 01:50 Nose MRSA Screen - Final Complete 09/03/24 18:40 Bronchial Washings Gram Stain - Final Resulted 09/03/24 18:40 Bronchial Washings Respiratory Culture - Preliminary Resulted 09/02/24 12:30 Blood Blood Culture - Preliminary NO GROWTH AFTER 72 HOURS OF INCUBATION. Resulted Labs and/or images reviewed: Labs reviewed by me, Image(s) reviewed by me Assessment/Plan Assessment/Plan Impression: -acute hypoxic and hypercarbic respiratory failure with failure of noninvasive positive pressure ventilation -community-acquired pneumonia, probable Gram-positive/Gram-negative etiology -morbid obesity -nicotine dependence -sepsis -history of schizophrenia -NSTEMI type 2 Plan: Events: Patient continues to be on FiO2 50% and a PEEP of eight. O2 saturation 93%. CT angiogram of the chest negative for PE. Blood sugars continue to be uncontrolled -continue regular insulin sliding scale, add Lantus 15 units daily -pulmonology consultation: Continue recommendations -continue antibiotic therapy with vancomycin, Zosyn, micafungin -Solu-Medrol to 40 mg daily -burrell cultures: No growth at this time -continue DVT prophylaxis -PUD prophylaxis -continue bronchodilators, add Pulmicort, add Mucomyst Patient repeat labs, chest x-ray, ABG in a.m. Critical care time spent with patient discussing and formulating plan of care: 40 minutes. This does not include time spent performing procedures. This medical document was created using an electronic medical record system with [employer] dictation system. Although this document has been carefully reviewed, there may still be some phonetic and typographical errors. These areas are purely typographical due to imperfections of the software programs, and do not reflect any compromise in the patient's medical care. Plan discussed with: Patient, Other (RN) My Orders Orders - ZUHAIR GUILLORY [employer]EDER Procedure Category Date Status Time Glucose Blood PHA 09/06/24 In Process (Accu-Chek Comfort 12:00 Insulin R (Human) PHA 09/06/24 In Process (Insulin R) 12:00 Dextrose 50% Syringe PHA 09/06/24 In Process 09:00 Chest Xray 1 View XY 09/07/24 Resulted 04:00 Insulin Lantus PHA 09/07/24 In Process (Glargine) (Lantus) 10:00 Basic Metabolic Panel LAB 09/08/24 Verified 05:00 Basic Metabolic Panel LAB 09/09/24 Verified 05:00 Basic Metabolic Panel LAB 09/10/24 Verified 05:00 Basic Metabolic Panel LAB 09/11/24 Verified 05:00 Complete Blood Count LAB 09/08/24 Verified 05:00 Complete Blood Count LAB 09/09/24 Verified 05:00 Complete Blood Count LAB 09/10/24 Verified 05:00 Complete Blood Count LAB 09/11/24 Verified 05:00 Chest Portable XY 09/08/24 Logged 05:00 Chest Portable XY 09/09/24 Logged 05:00 Chest Portable XY 09/10/24 Logged 05:00 Chest Portable XY 09/11/24 Logged 05:00 Abg W/ Co-Ox RT 09/08/24 Logged 05:00 Abg W/ Co-Ox RT 09/09/24 Logged 05:00 Abg W/ Co-Ox RT 09/10/24 Logged 05:00 Abg W/ Co-Ox RT 09/11/24 Logged 05:00 Thyroid US 09/07/24 Logged 07:42 Date of Service: Sep 07, 2024 Billing Provider: ZUHAIR GUILLORY NP Common Visit Codes: [id number] CARE 30-74 MIN ZUHAIR GUILLORY NP Sep 07, 2024 07:55
--- NOTE | 2024-09-07 08:28 | DVH ---
ULTRASOUND SOFT TISSUE HEAD AND NECK CLINICAL INDICATION: Goiter TECHNIQUE: Multiple real time sonographic images of the thyroid were obtained. Comparison: None FINDINGS: The right thyroid gland measures 5.4 x 2.2 x 2.3 cm. The left thyroid gland measures approximately 6.5 x 3.1 x 3.7 cm. The isthmus measures 0.9 cm. IMPRESSION: Slightly limited examination secondary to patient body habitus and bandages from central line. Grossly, Normal Thyroid. [employer] TI-RADS Categories and Recommendations (2017): TR1: 0 points, Benign, No FNA TR2: 2 points, Not suspicious, No FNA TR3: 3 points, Mildly suspicious, FNA if > or = 2.5 cm, Follow if > or = 1.5 cm TR4: 4-6 points, Moderately Suspicious, FNA if > or = 1.5 cm, Follow if > or = 1.0 cm TR5: 7+ points, Highly Suspicious, FNA if > or = 1.0 cm, Follow if > or = 0.5 cm Follow-up ultrasound guidelines: TR5: yearly for 5 years, if no growth or change in TI-RADS level TR4: at 1, 2, 3 and 5 years, if no growth or change in TI-RADS level TR3: at 1, 3 and 5 years, if no growth or change in TI-RADS level If increased but below threshold for FNA, repeat in one year. Source: ACR Thyroid Imaging, Reporting and Data System (TI-RADS): White Paper of the ACR TI-RADS Committee. Audie et al., J Am Jeremiah Radiol 2017;14:587-595.
[2024-09-07] MEDS: methylPREDNISolone SOD SUCC 40 MG/ML VL IV SCH (10:52)
[2024-09-07] MEDS: INSULIN LANTUS (GLARGINE) 1 /0.01ml (100units/ml) SC SCH (10:56)
--- NOTE | 2024-09-07 16:09 | DVHNC2 ---
Procedure - Bronchoscopy procedure note: Indications: Bilateral lower lobe atelectasis, Possible mucous plugging. Medicines: See [employer] notes. Complications: None Procedure: Patient medications and allergies reviewed. The risks and benefits of the procedure and the sedation options and risk were discussed with the patient's healthcare proxy. All questions were answered and informed consent was obtained. Patient identification and proposed procedure were verified prior to the procedure by the physician, and a nurse, and the respiratory therapist in ICU room. The heart rate, respiratory rate, oxygen saturations, blood pressure, adequacy of pulmonary ventilation, and response to care were monitored throughout the procedure. The physical status of the patient was reassessed after the procedure. After obtaining informed consent, the bronchoscope was introduced through the endotracheal tube and advanced into the trachea bronchial tree of both lungs. The procedure was accomplished without difficulty. The patient tolerated the procedure well. Findings: The trachea is in normal caliber. The alf is sharp. The tracheobronchial tree of the right lung was examined to at least the first subsegmental level. The bronchial mucosa and anatomy in the right lung are normal. There are no endobronchial lesions. There was copious whitish secretions from right main stem bronchus onward throughout R1-R3. The left upper lobe, lingula, and left lower lobe were examined to at least the first subsegmental level. Bronchial mucosa and anatomy in the left upper lobe and lingula are normal. There were no endobronchial lesions. There was copious whitish secretions from left main stem bronchus onward throughout L6-L10. Mucous plugging removed from L6-L10. There was no active bleeding at the completion of the procedure. Estimated blood loss: Less than 5 mL. Impression: Right upper lobe and Left lower lobe atelectasis due to mucous plugging Mucous plugging from R1-R3 and L6-L10 Recommendation: Pulmonary toileting Procedure codes: 38751, bronchoscopy, rigid and flexible, including fluoroscopic guidance, one performed; with bronchial endobronchial removal of mucous plugging, single or multiple sites LIZ GUDINO MD Sep 07, 2024 16:09
--- NOTE | 2024-09-07 23:04 | DVHPN2 ---
Progress Note - Dictate Date Seen: Sep 07, 2024 Medical Necessity Reason Pt with a Central, PICC or Fol: Yes The following are medically ne: Teague Catheter Reason for teague catheter: Strict I&O Subjective Patient seen and examined at bedside. Sedated, intubated on mechanical ventilator. Overnight events reviewed. vital signs Vital Sign Date Time Temp Pulse Resp B/P (MAP) Pulse Ox O2 Delivery O2 Flow Rate FiO2 09/07/24 22:04 124/71 09/07/24 22:00 20 93 Mechanical Ventilator+ 45 45 09/07/24 22:00 64 09/07/24 21:15 98.8 209.8 Total Intake and Output 09/06/24 09/06/24 09/07/24 15:00 23:00 07:00 Intake Total 972 ml 706.0 ml 558.0 ml Output Total 3525 ml 500 ml 1000 ml Balance -2553 ml 206.0 ml -442.0 ml medications Current Medications Medications Dose Ordered Sig/Felicitas Route Start Time Stop Time Status Last Admin Dose Admin Albuterol 2.5 mg Q4HR NEB 09/01/24 14:00 09/07/24 22:13 2.5 MG Ipratropium [place] 0.5 mg Q4HR NEB 09/01/24 14:00 09/07/24 22:13 0.5 MG Ondansetron HCl 4 mg Q4HP PRN IV 09/01/24 10:30 Nitroglycerin 0.4 mg Q5MINP PRN SL 09/01/24 10:30 Fentanyl Citrate 250 ml @ 2.5 mls/hr Q24H IV 09/01/24 13:30 09/07/24 21:30 32.5 MLS/HR Midazolam HCl 50 ml @ 1 mls/hr Q24H IV 09/01/24 14:00 09/07/24 22:04 14 MLS/HR Vancomycin HCl 0 ml @ 0 mls/hr UD IV 09/01/24 15:45 Piperacillin Sod/ Tazobactam Sod 100 ml @ 25 mls/hr Q6HR IV 09/01/24 18:00 UNV Piperacillin Sod/ Tazobactam Sod 100 ml @ 25 mls/hr Q6H IV 09/01/24 22:00 09/07/24 16:36 25 MLS/HR Propofol 100 ml @ 4.5 mls/hr [id number] IV 09/02/24 13:00 09/06/24 20:51 9 MLS/HR Norepinephrine Bitartrate 250 ml @ 3.75 mls/hr Q24H IV 09/02/24 13:00 09/07/24 19:24 3.75 MLS/HR Furosemide 40 mg DAILY IV 09/03/24 10:00 09/07/24 10:52 40 MG Micafungin Sodium 100 mg/Sodium Chloride 100 ml @ 100 mls/hr DAILY IV 09/03/24 10:00 09/07/24 11:00 100 MLS/HR Enteral Nutritional Formula 1,000 ml 40ML/HR GT 09/04/24 08:30 Pantoprazole Sodium 40 mg DAILY IV 09/04/24 10:00 09/07/24 10:51 40 MG Enoxaparin Sodium 40 mg DAILY SC 09/04/24 10:00 09/07/24 10:54 40 MG Acetylcysteine 100 mg Q8HR NEB 09/04/24 14:00 09/07/24 19:35 100 MG Budesonide 0.5 mg BID NEB 09/04/24 10:00 09/07/24 22:13 0.5 MG Vancomycin HCl 300 ml @ 200 mls/hr Q10H IV 09/04/24 10:00 09/07/24 19:07 200 MLS/HR Diagnostic Test (Pha) 1 strip IQ4HR 09/06/24 12:00 09/07/24 21:36 1 STRIP Insulin Human Regular IQ4HR SC 09/06/24 12:00 09/07/24 21:40 9 UNITS Dextrose 50 ml UD PRN IV 09/06/24 09:00 Methylprednisolone Sodium Succinate 40 mg DAILY IV 09/07/24 10:00 09/07/24 10:52 40 MG Insulin Glargine 15 units DAILY@1000 SC 09/07/24 10:00 09/07/24 10:56 15 UNITS objective Gen.: Patient lying in bed in medical ICU. Sedated, intubated on mechanical ventilator. Head: Normocephalic, atraumatic. Eyes: PERRLA. Ears: Normal external anatomy. Throat: Endotracheal tube and orogastric tube in place. Neck: Supple, trachea midline. Chest: Transmitted breath sounds bilaterally. Decreased air entry bilaterally. No wheezing. Bibasilar crackles. Cardiovascular: Positive S1, positive S2. Regular rate and rhythm. Abdomen: Positive bowel sounds in all 4 quadrants. Soft, nontender, nondistended. : Teague in place. Normal external genitalia. Rectal: Deferred. Skin: Warm, dry. Intact. Extremities: 2+ radial pulses bilaterally. No lower extremity edema. Neuro: Sedated. laboratory and microbiology Laboratory Tests 09/07/24 03:25 Test 09/07/24 03:25 Range/Units Serum Glucose 263 #H 74-106 mg/dL Assessment/Plan Impression: Acute hypoxic respiratory failure Acute hypercarbic respiratory failure On mechanical ventilator Pleural effusions Atelectasis Morbid obesity with a BMI of 44.8 Pulmonary edema Acute exacerbation of COPD vs Asthma Elevated troponin Events: Remains on vent support On assist control with respiratory rate of 20, tidal volume 600, PEEP of 8, FiO2 at 45%. Taper FiO2 as tolerated Sedated on Fentanyl, Versed - off Propofol Off Levophed, hemodynamically stable. ABG reviewed, compensated. CXR reviewed, demonstrates patchy bilateral lower lobe airspace opacities, slightly improved. No effusion or pneumothorax. Continue bronchodilators Continue antibiotics IV steroids Continue antifungal Tube feeds for nutrition Increased ET tube secretions - plan for therapeutic bronchoscopy Monitor WBC Diurese w/ Lasix as tolerated Monitor renal function Monitor electrolytes. Supplement as necessary. S/p therapeutic bronchoscopy on 09/03/24 with RML BAL - Mucous plugging R1-R10 and L1-L10. See separate procedure note for details. Labs and imaging reviewed. Rest of plan as noted below. Plan: s/p intubation on mechanical ventilator COVID, influenza negative. On assist control with respiratory rate of 20, tidal volume 600, PEEP of 8, FiO2 at 45%. Titrate FIO2 to keep O2 saturation between 88-94%. VAP bundle Daily ABG and CXR while intubated. Sedate for ventilatory synchrony Bronchodilators IV Steroids Pressors if necessary for hemodynamic support. Titrate to keep MAP above 65 mmHg/SBP above 90 mmHg. F/u Echo to evaluate LVEF, RVSP and r/o valvular dysfunction. F/u Cardiology recommendations Plan for CTA of chest to r/o PE. Continue antibiotics. Zosyn/Vancomycin F/u cultures. Monitor renal function due to Acute kidney injury. Monitor electrolytes. Supplement as necessary. Nutritional support. Accu-Cheks, ISS. Morbid obesity, complicates all care. Diet and lifestyle modifications for weight reduction recommended. GI/DVT prophylaxis. Condition: Critical Prognosis: Poor given multiple comorbidities. Rest of plan per hospitalist and other consultants. A total of 35 minutes of critical care time was spent reviewing the patient record, examining the patient, making a diagnostic and therapeutic plan, discussing this plan with the medical personnel, following up on diagnostic studies and following the patient for clinical stability excluding any and all procedures. At least 50% of this time was spent in direct, [id number] contact. Thank you ANAHI Montoya for allowing me to participate in this patient's care. Further recommendations will depend on patient's clinical course. Please do not hesitate to contact me if you have any questions or concerns. This medical document was created using an electronic medical record system with [employer] system. Although this document has been carefully reviewed, there may still be some phonetic and typographical errors. These areas are purely typographical due to imperfections of the software programs, and do not reflect any compromise in the patient's medical care. Dietary Evaluation Review Recommendations by RD: Increase Calorie Intake Comments: 1. Increase TF as tolerated to goal rate to 50 mL/hr.Goal rate will provide ~ 87 daily estimated energy needs and ~60% daily estimated protein needs. 2. Advance to CCHO 60g diet pending SUPPORT STAFF approval when medically feasible. 3. Continue to monitor patient's weight and labs. Expected Outcomes/Goals: 1. labs to improve 2. diet to advance 3. continue plan of care 4. f/u in 2-3 days Plan discussed with: Other (FERNANDO Junior) Critical Care Time(min): 35 LIZ GUDINO MD Sep 07, 2024 23:04
[2024-09-08] VITALS (106 sets, daily range): BP systolic 100–167; BP diastolic 57–113; PULSE 58–120; RESP 12–24; TEMP 97.8–99; O2SAT 79–97
[2024-09-08 03:28] LABS: Basophils # (auto) 0.1 10 ^3/uL (0-0.2); Basophils % (auto) 0.5 % (0.0-2.0); Eosinophils # (auto) 0.1 10 ^3/uL (0-0.8); Eosinophils % (auto) 0.5 % (0.0-7.0); Hematocrit 50.1 % (41.0-53.0); Hemoglobin 16.4 g/dL (13.5-17.5); Lymphocytes # (auto) 1.9 10 ^3/uL (0.4-5.4); Lymphocytes % (auto) 12.1 % (10.0-50.0); Mean Corpuscular Hemoglobin 30.6 pg (28.0-32.0); Mean Corpuscular Hgb Conc. 32.8 g/dL (32.0-36.0); Mean Corpuscular Volume 93.5 fL (80.0-100.0); Monocytes % (auto) 6.5 % (0.0-12.0); Neutrophils # (auto) 12.9 10 ^3/uL (1.6-8.6); Neutrophils % (auto) 80.4 % (37.0-80.0); Nucleated Red Blood Cells % 0.1 %; Platelet Count (auto) 286 10^3/uL (140-450); Red Blood Cells 5.36 10^6/uL (4.5-5.90); Red Cell Distribution Width 14.3 % (11.8-14.3)
[2024-09-08 03:29] LABS: Anion Gap 8 (5-15); Carbon Dioxide 30 mmol/L (20-31); Potassium 4.3 mmol/L (3.5-5.1); Sodium 145 mmol/L (136-145)
[2024-09-08 03:30] LABS: Calcium 9.9 mg/dL (8.7-10.4)
[2024-09-08 03:35] LABS: BUN/Creatinine Ratio 23.2 (10.0-20.0); Blood Urea Nitrogen 23 mg/dL (9-23)
[2024-09-08 03:42] LABS: Chloride 107 mmol/L (98-107); Glucose 217 mg/dL (74-106)
--- NOTE | 2024-09-08 05:59 | DVH ---
CHEST RADIOGRAPH Indication: pna Technique: Single frontal view of the chest was obtained Comparison: XY CHEST XRAY 1 VIEW on DOS: 09/07/24, XY CHEST PORTABLE on DOS: 09/06/24, XY CHEST CHARLIE BLE on DOS: 09/05/24 IMPRESSION: Endotracheal tube, enteric tube, and right IJ catheter appear similar and satisfactory position. Patc hy airspace opacity in the left lung base may represent atelectasis or pneumonia. No sizable effusion or pneumothorax.
--- NOTE | 2024-09-08 07:53 | DVHPN2 ---
Subjective Intubate and chemically sedated. Reviewed: Care Plan, H&P, Labs, Medications, Previous Orders, Radiology Changes from previous H/P or p: No Changes General: Per HPI Eyes: No Pain, No Vision change, No Conjunctivae inflammation, No Eyelid inflammation, No Other, No Redness Cardiovascular: No Chest Pain, No Palpitations, No Orthopnea, No Paroxysmal Noc. Dyspnea, No Edema, No Lt Headedness, No Other Respiratory: No Cough, No Dry; Shortness of breath; No SOB with excertion, No Wheezing, No Hemoptysis, No Pleuritic Pain, No Sputum, No Other Gastrointestinal: No Nausea, No Vomiting, No Abdominal Pain, No Diarrhea, No Constipation, No Melena, No Hematochezia, No Other Genitourinary: No Dysuria, No Frequency, No Incontinence, No Hematuria, No Retention, No Other Musculoskeletal: No other, No neck pain, No shoulder pain, No arm pain, No back pain, No hand pain, No leg pain, No foot pain Skin: No Rash, No Lesions, No Jaundice, No Bruising, No Other Objective Vitals Vital Signs Date Time Temp Pulse Resp B/P (MAP) Pulse Ox O2 Delivery O2 Flow Rate FiO2 09/08/24 07:30 121/83 09/08/24 06:45 70 20 91 09/08/24 06:01 45 09/08/24 06:00 Mechanical Ventilator+ 09/08/24 01:00 99.0 210.2 Intake/Output Intake and Output 09/08/24 07:00 Intake Total 2614.00 ml Output Total 3975 ml Balance -1361.00 ml Intake Oral 200 ml IV Total 1934.00 ml Tube Feeding 480 ml Output Urine Total 3975 ml General Appearance: mild distress, Other (intubated and sedated ) HEENT: Atraumatic, PERRLA Lungs: Other (Of ventilation. Diminished breath sounds.) Cardiovascular: Regular rate, Normal S1, Normal S2, No murmurs Abdomen: Normal bowel sounds, Soft, No tenderness Genitourinary: No Apparent Abnormalities ([place] catheterization) Musculoskeletal: Other (Unable to assess) Extremities: No edema, Normal pulses, No tenderness/swelling Skin: Dry, Intact Psych/Mental Status: Other (intubated and sedated ) Medications Current Medications Medications Dose Ordered Sig/Felicitas Route Start Time Stop Time Status Last Admin Dose Admin Albuterol 2.5 mg Q4HR NEB 09/01/24 14:00 09/08/24 06:18 2.5 MG Ipratropium [place] 0.5 mg Q4HR NEB 09/01/24 14:00 09/08/24 06:18 0.5 MG Ondansetron HCl 4 mg Q4HP PRN IV 09/01/24 10:30 Nitroglycerin 0.4 mg Q5MINP PRN SL 09/01/24 10:30 Fentanyl Citrate 250 ml @ 2.5 mls/hr Q24H IV 09/01/24 13:30 09/07/24 21:30 32.5 MLS/HR Midazolam HCl 50 ml @ 1 mls/hr Q24H IV 09/01/24 14:00 09/08/24 05:58 12 MLS/HR Vancomycin HCl 0 ml @ 0 mls/hr UD IV 09/01/24 15:45 Piperacillin Sod/ Tazobactam Sod 100 ml @ 25 mls/hr Q6HR IV 09/01/24 18:00 UNV Piperacillin Sod/ Tazobactam Sod 100 ml @ 25 mls/hr Q6H IV 09/01/24 22:00 09/08/24 04:00 25 MLS/HR Propofol 100 ml @ 4.5 mls/hr [id number] IV 09/02/24 13:00 09/06/24 20:51 9 MLS/HR Norepinephrine Bitartrate 250 ml @ 3.75 mls/hr Q24H IV 09/02/24 13:00 09/07/24 19:24 3.75 MLS/HR Furosemide 40 mg DAILY IV 09/03/24 10:00 09/07/24 10:52 40 MG Micafungin Sodium 100 mg/Sodium Chloride 100 ml @ 100 mls/hr DAILY IV 09/03/24 10:00 09/07/24 11:00 100 MLS/HR Enteral Nutritional Formula 1,000 ml 40ML/HR GT 09/04/24 08:30 Pantoprazole Sodium 40 mg DAILY IV 09/04/24 10:00 09/07/24 10:51 40 MG Enoxaparin Sodium 40 mg DAILY SC 09/04/24 10:00 09/07/24 10:54 40 MG Acetylcysteine 100 mg Q8HR NEB 09/04/24 14:00 09/08/24 06:18 100 MG Budesonide 0.5 mg BID NEB 09/04/24 10:00 09/08/24 06:22 0.5 MG Vancomycin HCl 300 ml @ 200 mls/hr Q10H IV 09/04/24 10:00 09/07/24 19:07 200 MLS/HR Diagnostic Test (Pha) 1 strip IQ4HR 09/06/24 12:00 09/08/24 05:18 1 STRIP Insulin Human Regular IQ4HR SC 09/06/24 12:00 09/08/24 05:30 3 UNITS Dextrose 50 ml UD PRN IV 09/06/24 09:00 Methylprednisolone Sodium Succinate 40 mg DAILY IV 09/07/24 10:00 09/07/24 10:52 40 MG Insulin Glargine 15 units DAILY@1000 SC 09/07/24 10:00 09/07/24 10:56 15 UNITS Laboratory Results Laboratory Tests 09/08/24 03:00 Chemistry Test 09/08/24 03:00 Calcium Level 9.9 mg/dL (8.7-10.4) Microbiology Microbiology Date/Time Source Procedure Growth Status 09/06/24 01:50 Nose MRSA Screen - Final Complete 09/03/24 18:40 Bronchial Washings Gram Stain - Final Complete 09/03/24 18:40 Bronchial Washings Respiratory Culture - Final Complete 09/02/24 12:30 Blood Blood Culture - Final NO GROWTH AFTER 5 DAYS OF INCUBATION. Complete Labs and/or images reviewed: Labs reviewed by me, Image(s) reviewed by me Assessment/Plan Assessment/Plan Impression: -acute hypoxic and hypercarbic respiratory failure with failure of noninvasive positive pressure ventilation -community-acquired pneumonia, probable Gram-positive/Gram-negative etiology -morbid obesity -nicotine dependence -sepsis -history of schizophrenia -NSTEMI type 2 Plan: Events: FiO2 45%. Peep at eight. Sedation has been weaned off. Plans for possible CPAP trial today. Blood sugars have improved control -continue regular insulin sliding scale, add Lantus 15 units daily -pulmonology consultation: Continue recommendations -continue antibiotic therapy with vancomycin, Zosyn, micafungin -Solu-Medrol to 40 mg daily -burrell cultures: No growth at this time -continue DVT prophylaxis -PUD prophylaxis -continue bronchodilators, add Pulmicort, add Mucomyst Patient repeat labs, chest x-ray, ABG in a.m. Critical care time spent with patient discussing and formulating plan of care: 40 minutes. This does not include time spent performing procedures. This medical document was created using an electronic medical record system with [employer] dictation system. Although this document has been carefully reviewed, there may still be some phonetic and typographical errors. These areas are purely typographical due to imperfections of the software programs, and do not reflect any compromise in the patient's medical care. Plan discussed with: Patient, Other (RN) Date of Service: Sep 08, 2024 Billing Provider: ZUHAIR GUILLORY NP Common Visit Codes: 24840-[id number] CARE 30-74 MIN ZUHAIR GUILLORY NP Sep 08, 2024 07:53
[2024-09-08 09:00] LABS: Base Excess 0.2 mmol/L (-2.0-3.0)
--- NOTE | 2024-09-08 23:27 | DVHPN2 ---
Progress Note - Dictate Date Seen: Sep 08, 2024 Medical Necessity Reason Pt with a Central, PICC or Fol: Yes The following are medically ne: Teague Catheter Reason for teague catheter: Strict I&O Subjective Patient seen and examined at bedside. Sedated, intubated on mechanical ventilator. Overnight events reviewed. vital signs Vital Sign Date Time Temp Pulse Resp B/P (MAP) Pulse Ox O2 Delivery O2 Flow Rate FiO2 09/08/24 22:42 114/69 09/08/24 22:00 20 92 Mechanical Ventilator+ 50 50 09/08/24 22:00 89 09/08/24 16:00 97.8 97.8 Total Intake and Output 09/07/24 09/07/24 09/08/24 15:00 23:00 07:00 Intake Total 897.5 ml 1200.50 ml 516.00 ml Output Total 3250 ml 725 ml Balance 897.5 ml -2049.50 ml -209.00 ml medications Current Medications Medications Dose Ordered Sig/Felicitas Route Start Time Stop Time Status Last Admin Dose Admin Albuterol 2.5 mg Q4HR NEB 09/01/24 14:00 09/08/24 21:35 2.5 MG Ipratropium [place] 0.5 mg Q4HR NEB 09/01/24 14:00 09/08/24 21:35 0.5 MG Ondansetron HCl 4 mg Q4HP PRN IV 09/01/24 10:30 Nitroglycerin 0.4 mg Q5MINP PRN SL 09/01/24 10:30 Fentanyl Citrate 250 ml @ 2.5 mls/hr Q24H IV 09/01/24 13:30 09/08/24 16:28 27.5 MLS/HR Midazolam HCl 50 ml @ 1 mls/hr Q24H IV 09/01/24 14:00 09/08/24 20:49 11 MLS/HR Vancomycin HCl 0 ml @ 0 mls/hr UD IV 09/01/24 15:45 Piperacillin Sod/ Tazobactam Sod 100 ml @ 25 mls/hr Q6HR IV 09/01/24 18:00 UNV Piperacillin Sod/ Tazobactam Sod 100 ml @ 25 mls/hr Q6H IV 09/01/24 22:00 09/08/24 22:20 25 MLS/HR Propofol 100 ml @ 4.5 mls/hr [id number] IV 09/02/24 13:00 09/08/24 15:13 4.5 MLS/HR Norepinephrine Bitartrate 250 ml @ 3.75 mls/hr Q24H IV 09/02/24 13:00 09/07/24 19:24 3.75 MLS/HR Furosemide 40 mg DAILY IV 09/03/24 10:00 09/08/24 10:02 40 MG Micafungin Sodium 100 mg/Sodium Chloride 100 ml @ 100 mls/hr DAILY IV 09/03/24 10:00 09/08/24 10:31 100 MLS/HR Enteral Nutritional Formula 1,000 ml 40ML/HR GT 09/04/24 08:30 Pantoprazole Sodium 40 mg DAILY IV 09/04/24 10:00 09/08/24 10:02 40 MG Enoxaparin Sodium 40 mg DAILY SC 09/04/24 10:00 09/08/24 10:09 40 MG Acetylcysteine 100 mg Q8HR NEB 09/04/24 14:00 09/08/24 18:31 100 MG Budesonide 0.5 mg BID NEB 09/04/24 10:00 09/08/24 21:35 0.5 MG Vancomycin HCl 300 ml @ 200 mls/hr Q10H IV 09/04/24 10:00 09/08/24 14:51 200 MLS/HR Diagnostic Test (Pha) 1 strip IQ4HR 09/06/24 12:00 09/08/24 19:56 1 STRIP Insulin Human Regular IQ4HR SC 09/06/24 12:00 09/08/24 20:00 6 UNITS Dextrose 50 ml UD PRN IV 09/06/24 09:00 Methylprednisolone Sodium Succinate 40 mg DAILY IV 09/07/24 10:00 09/08/24 10:03 40 MG Insulin Glargine 15 units DAILY@1000 SC 09/07/24 10:00 09/08/24 10:25 15 UNITS Dexmedetomidine HCl 400 mcg/ Dextrose 100 ml @ 7.135 mls/ hr Q14H1M IV 09/08/24 11:00 09/08/24 11:11 7.135 MLS/HR objective Gen.: Patient lying in bed in medical ICU. Sedated, intubated on mechanical ventilator. Head: Normocephalic, atraumatic. Eyes: PERRLA. Ears: Normal external anatomy. Throat: Endotracheal tube and orogastric tube in place. Neck: Supple, trachea midline. Chest: Transmitted breath sounds bilaterally. Decreased air entry bilaterally. No wheezing. Bibasilar crackles. Cardiovascular: Positive S1, positive S2. Regular rate and rhythm. Abdomen: Positive bowel sounds in all 4 quadrants. Soft, nontender, nondistended. : Teague in place. Normal external genitalia. Rectal: Deferred. Skin: Warm, dry. Intact. Extremities: 2+ radial pulses bilaterally. No lower extremity edema. Neuro: Sedated. laboratory and microbiology Laboratory Tests 09/08/24 03:00 Test 09/08/24 03:00 Range/Units Serum Glucose 217 H 74-106 mg/dL Assessment/Plan Impression: Acute hypoxic respiratory failure Acute hypercarbic respiratory failure On mechanical ventilator Pleural effusions Atelectasis Morbid obesity with a BMI of 44.8 Pulmonary edema Acute exacerbation of COPD vs Asthma Elevated troponin Events: Remains on vent support On assist control with respiratory rate of 20, tidal volume 600, PEEP of 8, FiO2 at 50%. Taper FiO2 as tolerated Sedated on Fentanyl, Versed, Propofol ABG reviewed, compensated. CXR reviewed, demonstrates patchy airspace opacity in the left lung base may represent atelectasis or pneumonia. No effusion or pneumothorax. Continue bronchodilators Continue antibiotics IV steroids Continue antifungal Tube feeds for nutrition Increased FiO2 requirements. Increased ET tube secretions - plan for therapeutic bronchoscopy in AM. Monitor WBC Diurese w/ Lasix as tolerated Monitor renal function Monitor electrolytes. Supplement as necessary. S/p therapeutic bronchoscopy on 09/03/24 with RML BAL - Mucous plugging R1-R10 and L1-L10. See separate procedure note for details. Labs and imaging reviewed. Rest of plan as noted below. Plan: s/p intubation on mechanical ventilator COVID, influenza negative. On assist control with respiratory rate of 20, tidal volume 600, PEEP of 8, FiO2 at 50%. Titrate FIO2 to keep O2 saturation between 88-94%. VAP bundle Daily ABG and CXR while intubated. Sedate for ventilatory synchrony Bronchodilators IV Steroids Pressors if necessary for hemodynamic support. Titrate to keep MAP above 65 mmHg/SBP above 90 mmHg. F/u Echo to evaluate LVEF, RVSP and r/o valvular dysfunction. F/u Cardiology recommendations Plan for CTA of chest to r/o PE. Continue antibiotics. Zosyn/Vancomycin F/u cultures. Monitor renal function due to Acute kidney injury. Monitor electrolytes. Supplement as necessary. Nutritional support. Accu-Cheks, ISS. Morbid obesity, complicates all care. Diet and lifestyle modifications for weight reduction recommended. GI/DVT prophylaxis. Condition: Critical Prognosis: Poor given multiple comorbidities. Rest of plan per hospitalist and other consultants. A total of 35 minutes of critical care time was spent reviewing the patient record, examining the patient, making a diagnostic and therapeutic plan, discussing this plan with the medical personnel, following up on diagnostic studies and following the patient for clinical stability excluding any and all procedures. At least 50% of this time was spent in direct, [id number] contact. Thank you ANAHI Montoya for allowing me to participate in this patient's care. Further recommendations will depend on patient's clinical course. Please do not hesitate to contact me if you have any questions or concerns. This medical document was created using an electronic medical record system with [employer] dictation system. Although this document has been carefully reviewed, there may still be some phonetic and typographical errors. These areas are purely typographical due to imperfections of the software programs, and do not reflect any compromise in the patient's medical care. Dietary Evaluation Review Recommendations by RD: Increase Calorie Intake Comments: 1. Increase TF as tolerated to goal rate to 50 mL/hr.Goal rate will provide ~ 87 daily estimated energy needs and ~60% daily estimated protein needs. 2. Advance to CCHO 60g diet pending [employer]ENT approval when medically feasible. 3. Continue to monitor patient's weight and labs. Expected Outcomes/Goals: 1. labs to improve 2. diet to advance 3. continue plan of care 4. f/u in 2-3 days Plan discussed with: Other (FERNANDO Cabrera) Critical Care Time(min): 35 LIZ GUDINO MD Sep 08, 2024 23:27
[2024-09-09] VITALS (73 sets, daily range): BP systolic 81–122; BP diastolic 40–77; PULSE 53–107; RESP 20; TEMP 98.1–99.8; O2SAT 90–96
[2024-09-09 03:47] LABS: Basophils # (auto) 0 10 ^3/uL (0-0.2); Basophils % (auto) 0.2 % (0.0-2.0); Eosinophils # (auto) 0.1 10 ^3/uL (0-0.8); Eosinophils % (auto) 0.5 % (0.0-7.0); Hematocrit 52.9 % (41.0-53.0); Hemoglobin 16.9 g/dL (13.5-17.5); Lymphocytes # (auto) 2.7 10 ^3/uL (0.4-5.4); Lymphocytes % (auto) 13.4 % (10.0-50.0); Mean Corpuscular Hemoglobin 29.8 pg (28.0-32.0); Mean Corpuscular Hgb Conc. 31.9 g/dL (32.0-36.0); Mean Corpuscular Volume 93.2 fL (80.0-100.0); Monocytes # (auto) 1.3 10 ^3/uL (0-1.3); Monocytes % (auto) 6.5 % (0.0-12.0); Neutrophils # (auto) 15.8 10 ^3/uL (1.6-8.6); Neutrophils % (auto) 79.4 % (37.0-80.0); Nucleated Red Blood Cells % 0.1 %; Platelet Count (auto) 302 10^3/uL (140-450); Red Blood Cells 5.67 10^6/uL (4.5-5.90); Red Cell Distribution Width 14.3 % (11.8-14.3); White Blood Cell 19.9 10^3/uL (4.4-10.8)
[2024-09-09 03:53] LABS: Chloride 107 mmol/L (98-107); Potassium 3.9 mmol/L (3.5-5.1); Sodium 142 mmol/L (136-145)
[2024-09-09 03:54] LABS: Anion Gap 7 (5-15); Carbon Dioxide 28 mmol/L (20-31)
[2024-09-09 03:55] LABS: Calcium 9.9 mg/dL (8.7-10.4)
[2024-09-09 03:59] LABS: BUN/Creatinine Ratio 20.2 (10.0-20.0); Blood Urea Nitrogen 21 mg/dL (9-23)
[2024-09-09 04:01] LABS: Glucose 178 mg/dL (74-106)
--- NOTE | 2024-09-09 05:29 | DVH ---
CHEST RADIOGRAPH Indication: pna Technique: Single frontal view of the chest was obtained Comparison: XY CHEST PORTABLE on DOS: 09/08/24 FINDINGS: Lines and Tubes: Right central venous catheter terminates in the superior vena cava. The endotrachea l tube terminates 2.4 cm above the alf. The enteric tube terminates below the left hemidiaphragm and outside the field of view. Lungs: Bibasilar opacities. Pleura: No effusion. No pneumothorax. Cardiomediastinal contours: Unremarkable Bones: No acute osseous abnormality. IMPRESSION: 1. Stable position of the support lines and tubes. 2. Bibasilar opacities which may reflect atelectasis or pneumonia.
[2024-09-09 09:03] LABS: Base Excess 4.7 mmol/L (-2.0-3.0)
--- NOTE | 2024-09-09 09:39 | DVHPN2 ---
Subjective Intubated and chemically sedated. Reviewed: Care Plan, H&P, Labs, Medications, Previous Orders, Radiology Changes from previous H/P or p: No Changes General: Per HPI Eyes: No Pain, No Vision change, No Conjunctivae inflammation, No Eyelid inflammation, No Other, No Redness Cardiovascular: No Chest Pain, No Palpitations, No Orthopnea, No Paroxysmal Noc. Dyspnea, No Edema, No Lt Headedness, No Other Respiratory: No Cough, No Dry; Shortness of breath; No SOB with excertion, No Wheezing, No Hemoptysis, No Pleuritic Pain, No Sputum, No Other Gastrointestinal: No Nausea, No Vomiting, No Abdominal Pain, No Diarrhea, No Constipation, No Melena, No Hematochezia, No Other Genitourinary: No Dysuria, No Frequency, No Incontinence, No Hematuria, No Retention, No Other Musculoskeletal: No other, No neck pain, No shoulder pain, No arm pain, No back pain, No hand pain, No leg pain, No foot pain Skin: No Rash, No Lesions, No Jaundice, No Bruising, No Other Objective Vitals Vital Signs Date Time Temp Pulse Resp B/P (MAP) Pulse Ox O2 Delivery O2 Flow Rate FiO2 09/09/24 08:58 95/52 09/09/24 08:45 99.3 78 20 93 99.3 09/09/24 08:20 50 09/09/24 08:14 Mechanical Ventilator+ Intake/Output Intake and Output 09/09/24 07:00 Intake Total 1795.37 ml Output Total 3000 ml Balance -1204.63 ml Intake Oral 0 ml IV Total 1795.37 ml Output Urine Total 3000 ml General Appearance: mild distress, Other (intubated and sedated ) HEENT: Atraumatic, PERRLA Lungs: Other (Of ventilation. Diminished breath sounds.) Cardiovascular: Regular rate, Normal S1, Normal S2, No murmurs Abdomen: Normal bowel sounds, Soft, No tenderness Genitourinary: No Apparent Abnormalities (Spence catheterization) Musculoskeletal: Other (Unable to assess) Extremities: No edema, Normal pulses, No tenderness/swelling Skin: Dry, Intact Psych/Mental Status: Other (intubated and sedated ) Medications Current Medications Medications Dose Ordered Sig/Felicitas Route Start Time Stop Time Status Last Admin Dose Admin Albuterol 2.5 mg Q4HR NEB 09/01/24 14:00 09/09/24 06:18 2.5 MG Ipratropium [place] 0.5 mg Q4HR NEB 09/01/24 14:00 09/09/24 06:18 0.5 MG Ondansetron HCl 4 mg Q4HP PRN IV 09/01/24 10:30 Nitroglycerin 0.4 mg Q5MINP PRN SL 09/01/24 10:30 Fentanyl Citrate 250 ml @ 2.5 mls/hr Q24H IV 09/01/24 13:30 09/09/24 07:59 27.5 MLS/HR Midazolam HCl 50 ml @ 1 mls/hr Q24H IV 09/01/24 14:00 09/09/24 05:40 11 MLS/HR Vancomycin HCl 0 ml @ 0 mls/hr UD IV 09/01/24 15:45 Piperacillin Sod/ Tazobactam Sod 100 ml @ 25 mls/hr Q6HR IV 09/01/24 18:00 UNV Piperacillin Sod/ Tazobactam Sod 100 ml @ 25 mls/hr Q6H IV 09/01/24 22:00 09/09/24 07:45 25 MLS/HR Propofol 100 ml @ 4.5 mls/hr [id number] IV 09/02/24 13:00 09/09/24 08:58 9 MLS/HR Norepinephrine Bitartrate 250 ml @ 3.75 mls/hr Q24H IV 09/02/24 13:00 09/09/24 02:36 3.75 MLS/HR Furosemide 40 mg DAILY IV 09/03/24 10:00 09/09/24 07:45 40 MG Micafungin Sodium 100 mg/Sodium Chloride 100 ml @ 100 mls/hr DAILY IV 09/03/24 10:00 09/08/24 10:31 100 MLS/HR Enteral Nutritional Formula 1,000 ml 40ML/HR GT 09/04/24 08:30 Pantoprazole Sodium 40 mg DAILY IV 09/04/24 10:00 09/09/24 07:45 40 MG Enoxaparin Sodium 40 mg DAILY SC 09/04/24 10:00 09/09/24 07:47 40 MG Acetylcysteine 100 mg Q8HR NEB 09/04/24 14:00 09/09/24 06:18 100 MG Budesonide 0.5 mg BID NEB 09/04/24 10:00 09/09/24 06:20 0.5 MG Vancomycin HCl 300 ml @ 200 mls/hr Q10H IV 09/04/24 10:00 09/09/24 00:00 200 MLS/HR Diagnostic Test (Pha) 1 strip IQ4HR 09/06/24 12:00 09/09/24 07:45 1 STRIP Insulin Human Regular IQ4HR SC 09/06/24 12:00 09/09/24 07:46 3 UNITS Dextrose 50 ml UD PRN IV 09/06/24 09:00 Methylprednisolone Sodium Succinate 40 mg DAILY IV 09/07/24 10:00 09/08/24 10:03 40 MG Insulin Glargine 15 units DAILY@1000 SC 09/07/24 10:00 09/09/24 07:45 15 UNITS Dexmedetomidine HCl 400 mcg/ Dextrose 100 ml @ 7.135 mls/ hr Q14H1M IV 09/08/24 11:00 09/08/24 11:11 7.135 MLS/HR Laboratory Results Laboratory Tests 09/09/24 03:25 Chemistry Test 09/09/24 03:25 Calcium Level 9.9 mg/dL (8.7-10.4) Blood Gas Results Test 09/09/24 08:06 Arterial Blood pH 7.490 (7.350-7.450) FiO2 % 50.0 Microbiology Microbiology Date/Time Source Procedure Growth Status 09/06/24 01:50 Nose MRSA Screen - Final Complete 09/03/24 18:40 Bronchial Washings Gram Stain - Final Complete 09/03/24 18:40 Bronchial Washings Respiratory Culture - Final Complete 09/02/24 12:30 Blood Blood Culture - Final NO GROWTH AFTER 5 DAYS OF INCUBATION. Complete Labs and/or images reviewed: Labs reviewed by me, Image(s) reviewed by me Assessment/Plan Assessment/Plan Impression: -acute hypoxic and hypercarbic respiratory failure with failure of noninvasive positive pressure ventilation -community-acquired pneumonia, probable Gram-positive/Gram-negative etiology -morbid obesity -nicotine dependence -sepsis -history of schizophrenia -NSTEMI type 2 Plan: Events: Copious secretions noted yesterday. Plans for bronchoscopy today. -continue regular insulin sliding scale, Lantus 15 units daily -pulmonology consultation: Continue recommendations -continue antibiotic therapy with vancomycin, Zosyn, micafungin -Solu-Medrol to 40 mg daily -burrell cultures: No growth at this time -continue DVT prophylaxis -PUD prophylaxis -continue bronchodilators, add Pulmicort, add Mucomyst Patient repeat labs, chest x-ray, ABG in a.m. Critical care time spent with patient discussing and formulating plan of care: 40 minutes. This does not include time spent performing procedures. This medical document was created using an electronic medical record system with [employer] dictation system. Although this document has been carefully reviewed, there may still be some phonetic and typographical errors. These areas are purely typographical due to imperfections of the software programs, and do not reflect any compromise in the patient's medical care. Plan discussed with: Patient, Other (RN) My Orders Orders - ZUHAIR GUILLORY NP Procedure Category Date Status Time D5w 5% (Dextrose 5%) PHA 09/08/24 In Process W/Dexmedetomidine 11:00 Date of Service: Sep 09, 2024 Billing Provider: ZUHAIR GUILLORY NP Common Visit Codes: [id number] CARE 30-74 MIN ZUHAIR GUILLORY NP Sep 09, 2024 09:39
--- NOTE | 2024-09-09 13:14 | DVHNC2 ---
Procedure - Therapeutic Bronchoscopy procedure note: Indications: Increased ET tube secretions, Possible mucous plugging. Medicines: See [employer] notes. Complications: None Procedure: Patient medications and allergies reviewed. The risks and benefits of the procedure and the sedation options and risk were discussed with the patient's healthcare proxy. All questions were answered and informed consent was obtained. Patient identification and proposed procedure were verified prior to the procedure by the physician, and a nurse, and the respiratory therapist in ICU room. The heart rate, respiratory rate, oxygen saturations, blood pressure, adequacy of pulmonary ventilation, and response to care were monitored throughout the procedure. The physical status of the patient was reassessed after the procedure. After obtaining informed consent, the bronchoscope was introduced through the endotracheal tube and advanced into the trachea bronchial tree of both lungs. The procedure was accomplished without difficulty. The patient tolerated the procedure well. Findings: The trachea is in normal caliber. The alf is sharp. The tracheobronchial tree of the right lung was examined to at least the first subsegmental level. The bronchial mucosa and anatomy in the right lung are normal. There are no endobronchial lesions. There was copious whitish secretions from right main stem bronchus onward throughout R1-R3. The left upper lobe, lingula, and left lower lobe were examined to at least the first subsegmental level. Bronchial mucosa and anatomy in the left upper lobe and lingula are normal. There were no endobronchial lesions. There was copious whitish secretions from left main stem bronchus onward throughout L6-L10. Mucous plugging removed from L6-L10. There was no active bleeding at the completion of the procedure. Estimated blood loss: Less than 5 mL. Impression: Right upper lobe and Left lower lobe atelectasis due to mucous plugging Mucous plugging from L6-L10 and R1-R3 Sinusitis, left nare Recommendation: Pulmonary toiletting and oral care. Increased oral secretions likely pooling and going into airway. Procedure codes: 28206, bronchoscopy, rigid and flexible, including fluoroscopic guidance, one performed; with bronchial endobronchial broncho-alveolar lavage, single or multiple sites LIZ GUDINO MD Sep 09, 2024 13:14
--- NOTE | 2024-09-09 20:27 | DVHPN2 ---
Progress Note - Dictate Date Seen: Sep 09, 2024 Medical Necessity Reason Pt with a Central, PICC or Fol: Yes The following are medically ne: Teague Catheter Reason for teague catheter: Strict I&O Subjective Patient seen and examined at bedside. Sedated, intubated on mechanical ventilator. Overnight events reviewed. vital signs Vital Sign Date Time Temp Pulse Resp B/P (MAP) Pulse Ox O2 Delivery O2 Flow Rate FiO2 09/09/24 18:24 114/66 09/09/24 18:15 69 20 96 45 09/09/24 17:43 Mechanical Ventilator+ 09/09/24 08:45 99.3 99.3 Total Intake and Output 09/08/24 09/08/24 09/09/24 15:00 23:00 07:00 Intake Total 473.12 ml 504.0 ml 818.25 ml Output Total 2500 ml 500 ml Balance 473.12 ml -1996.0 ml 318.25 ml medications Current Medications Medications Dose Ordered Sig/Felicitas Route Start Time Stop Time Status Last Admin Dose Admin Albuterol 2.5 mg Q4HR NEB 09/01/24 14:00 09/09/24 18:15 2.5 MG Ipratropium [place] 0.5 mg Q4HR NEB 09/01/24 14:00 09/09/24 18:15 0.5 MG Ondansetron HCl 4 mg Q4HP PRN IV 09/01/24 10:30 Nitroglycerin 0.4 mg Q5MINP PRN SL 09/01/24 10:30 Fentanyl Citrate 250 ml @ 2.5 mls/hr Q24H IV 09/01/24 13:30 09/09/24 16:31 27.5 MLS/HR Midazolam HCl 50 ml @ 1 mls/hr Q24H IV 09/01/24 14:00 09/09/24 16:33 11 MLS/HR Vancomycin HCl 0 ml @ 0 mls/hr UD IV 09/01/24 15:45 Piperacillin Sod/ Tazobactam Sod 100 ml @ 25 mls/hr Q6HR IV 09/01/24 18:00 UNV Piperacillin Sod/ Tazobactam Sod 100 ml @ 25 mls/hr Q6H IV 09/01/24 22:00 09/09/24 16:00 25 MLS/HR Propofol 100 ml @ 4.5 mls/hr [id number] IV 09/02/24 13:00 09/09/24 08:58 9 MLS/HR Norepinephrine Bitartrate 250 ml @ 3.75 mls/hr Q24H IV 09/02/24 13:00 09/09/24 02:36 3.75 MLS/HR Furosemide 40 mg DAILY IV 09/03/24 10:00 09/09/24 07:45 40 MG Micafungin Sodium 100 mg/Sodium Chloride 100 ml @ 100 mls/hr DAILY IV 09/03/24 10:00 09/08/24 10:31 100 MLS/HR Enteral Nutritional Formula 1,000 ml 40ML/HR GT 09/04/24 08:30 Pantoprazole Sodium 40 mg DAILY IV 09/04/24 10:00 09/09/24 07:45 40 MG Enoxaparin Sodium 40 mg DAILY SC 09/04/24 10:00 09/09/24 07:47 40 MG Acetylcysteine 100 mg Q8HR NEB 09/04/24 14:00 09/09/24 13:43 100 MG Budesonide 0.5 mg BID NEB 09/04/24 10:00 09/09/24 18:15 0.5 MG Vancomycin HCl 300 ml @ 200 mls/hr Q10H IV 09/04/24 10:00 09/09/24 11:00 200 MLS/HR Diagnostic Test (Pha) 1 strip IQ4HR 09/06/24 12:00 09/09/24 20:13 1 STRIP Insulin Human Regular IQ4HR SC 09/06/24 12:00 09/09/24 20:14 6 UNITS Dextrose 50 ml UD PRN IV 09/06/24 09:00 Methylprednisolone Sodium Succinate 40 mg DAILY IV 09/07/24 10:00 09/09/24 10:59 40 MG Insulin Glargine 15 units DAILY@1000 SC 09/07/24 10:00 09/09/24 07:45 15 UNITS Dexmedetomidine HCl 400 mcg/ Dextrose 100 ml @ 7.135 mls/ hr Q14H1M IV 09/08/24 11:00 09/08/24 11:11 7.135 MLS/HR Acetaminophen 650 mg Q6HP PRN PO 09/09/24 10:45 objective Gen.: Patient lying in bed in medical ICU. Sedated, intubated on mechanical ventilator. Head: Normocephalic, atraumatic. Eyes: PERRLA. Ears: Normal external anatomy. Throat: Endotracheal tube and orogastric tube in place. Neck: Supple, trachea midline. Chest: Transmitted breath sounds bilaterally. Decreased air entry bilaterally. No wheezing. Bibasilar crackles. Cardiovascular: Positive S1, positive S2. Regular rate and rhythm. Abdomen: Positive bowel sounds in all 4 quadrants. Soft, nontender, nondistended. : Teague in place. Normal external genitalia. Rectal: Deferred. Skin: Warm, dry. Intact. Extremities: 2+ radial pulses bilaterally. No lower extremity edema. Neuro: Sedated. laboratory and microbiology Laboratory Tests 09/09/24 03:25 Test 09/09/24 03:25 Range/Units Serum Glucose 178 H 74-106 mg/dL Assessment/Plan Impression: Acute hypoxic respiratory failure Acute hypercarbic respiratory failure On mechanical ventilator Pleural effusions Atelectasis Morbid obesity with a BMI of 44.8 Pulmonary edema Acute exacerbation of COPD vs Asthma Elevated troponin Events: Remains on vent support On assist control with respiratory rate of 20, tidal volume 600, PEEP of 8, FiO2 at 100%. Taper FiO2 as tolerated S/p therapeutic bronchoscopy - Mucous plugging from L6-L10 and R1-R3. Please see separate procedure note for details. Sedated on Fentanyl, Versed, Propofol On pressors for hemodynamic support Levophed 12 mcg/min Titrate to keep mean arterial pressure greater than 65 mmHg. ABG reviewed, notable for alkalemia. CXR reviewed, demonstrates devices in place. Bibasilar opacities which may reflect atelectasis or pneumonia. Continue bronchodilators Continue antibiotics IV steroids Tube feeds for nutrition Increased FiO2 requirements. Monitor WBC Diurese w/ Lasix as tolerated Monitor renal function Monitor electrolytes. Supplement as necessary. S/p therapeutic bronchoscopy on 09/03/24 with RML BAL - Mucous plugging R1-R10 and L1-L10. See separate procedure note for details. Labs and imaging reviewed. Rest of plan as noted below. Plan: s/p intubation on mechanical ventilator COVID, influenza negative. On assist control with respiratory rate of 20, tidal volume 600, PEEP of 8, FiO2 at 100%. Titrate FIO2 to keep O2 saturation between 88-94%. VAP bundle Daily ABG and CXR while intubated. Sedate for ventilatory synchrony Bronchodilators IV Steroids Pressors for hemodynamic support. Titrate to keep MAP above 65 mmHg/SBP above 90 mmHg. F/u Echo to evaluate LVEF, RVSP and r/o valvular dysfunction. F/u Cardiology recommendations Plan for CTA of chest to r/o PE. Continue antibiotics. Zosyn/Vancomycin F/u cultures. Monitor renal function due to Acute kidney injury. Monitor electrolytes. Supplement as necessary. Nutritional support. Accu-Cheks, ISS. Morbid obesity, complicates all care. Diet and lifestyle modifications for weight reduction recommended. GI/DVT prophylaxis. Condition: Critical Prognosis: Poor given multiple comorbidities. Rest of plan per hospitalist and other consultants. A total of 35 minutes of critical care time was spent reviewing the patient record, examining the patient, making a diagnostic and therapeutic plan, discussing this plan with the medical personnel, following up on diagnostic studies and following the patient for clinical stability excluding any and all procedures. At least 50% of this time was spent in direct, [id number] contact. Thank you ANAHI Montoya for allowing me to participate in this patient's care. Further recommendations will depend on patient's clinical course. Please do not hesitate to contact me if you have any questions or concerns. This medical document was created using an electronic medical record system with [email or web address] computerized dictation system. Although this document has been carefully reviewed, there may still be some phonetic and typographical errors. These areas are purely typographical due to imperfections of the software programs, and do not reflect any compromise in the patient's medical care. Dietary Evaluation Review Recommendations by RD: Increase Calorie Intake Comments: 1. Increase TF as tolerated to goal rate to 50 mL/hr.Goal rate will provide ~ 87 daily estimated energy needs and ~60% daily estimated protein needs. 2. Advance to CCHO 60g diet pending CERTIFIED PUBLIC ACCOUNTANT approval when medically feasible. 3. Continue to monitor patient's weight and labs. Expected Outcomes/Goals: 1. labs to improve 2. diet to advance 3. continue plan of care 4. f/u in 2-3 days Plan discussed with: Other (FERNANDO Mixon) Critical Care Time(min): 35 LIZ GUDINO MD Sep 09, 2024 20:27
[2024-09-10] VITALS (109 sets, daily range): BP systolic 78–118; BP diastolic 36–69; PULSE 58–136; RESP 20–21; TEMP 99.5–101.7; O2SAT 91–97
[2024-09-10 03:38] LABS: Basophils # (auto) 0.1 10 ^3/uL (0-0.2); Eosinophils # (auto) 0.1 10 ^3/uL (0-0.8); Nucleated Red Blood Cells % 0.1 %
[2024-09-10 03:44] LABS: Basophils % (auto) 0.3 % (0.0-2.0); Eosinophils % (auto) 0.3 % (0.0-7.0); Hematocrit 53.6 % (41.0-53.0); Hemoglobin 17.9 g/dL (13.5-17.5); Mean Corpuscular Hemoglobin 30.7 pg (28.0-32.0); Mean Corpuscular Hgb Conc. 33.3 g/dL (32.0-36.0); Mean Corpuscular Volume 92.1 fL (80.0-100.0); Monocytes # (auto) 1.9 10 ^3/uL (0-1.3); Monocytes % (auto) 8.3 % (0.0-12.0); Neutrophils # (auto) 17.9 10 ^3/uL (1.6-8.6); Neutrophils % (auto) 78.1 % (37.0-80.0); Platelet Count (auto) 339 10^3/uL (140-450); Red Blood Cells 5.83 10^6/uL (4.5-5.90); Red Cell Distribution Width 14.1 % (11.8-14.3); White Blood Cell 22.9 10^3/uL (4.4-10.8)
[2024-09-10 03:48] LABS: Anion Gap 10 (5-15); Carbon Dioxide 25 mmol/L (20-31); Sodium 142 mmol/L (136-145)
[2024-09-10 03:54] LABS: Blood Urea Nitrogen 19 mg/dL (9-23)
[2024-09-10 03:55] LABS: BUN/Creatinine Ratio 18.6 (10.0-20.0)
[2024-09-10 04:02] LABS: Chloride 107 mmol/L (98-107); Glucose 184 mg/dL (74-106)
--- NOTE | 2024-09-10 08:06 | DVHPN2 ---
Subjective Intubated and chemically sedated. Reviewed: Care Plan, H&P, Labs, Medications, Previous Orders, Radiology Changes from previous H/P or p: No Changes General: Per HPI Eyes: No Pain, No Vision change, No Conjunctivae inflammation, No Eyelid inflammation, No Other, No Redness Cardiovascular: No Chest Pain, No Palpitations, No Orthopnea, No Paroxysmal Noc. Dyspnea, No Edema, No Lt Headedness, No Other Respiratory: No Cough, No Dry; Shortness of breath; No SOB with excertion, No Wheezing, No Hemoptysis, No Pleuritic Pain, No Sputum, No Other Gastrointestinal: No Nausea, No Vomiting, No Abdominal Pain, No Diarrhea, No Constipation, No Melena, No Hematochezia, No Other Genitourinary: No Dysuria, No Frequency, No Incontinence, No Hematuria, No Retention, No Other Musculoskeletal: No other, No neck pain, No shoulder pain, No arm pain, No back pain, No hand pain, No leg pain, No foot pain Skin: No Rash, No Lesions, No Jaundice, No Bruising, No Other Objective Vitals Vital Signs Date Time Temp Pulse Resp B/P (MAP) Pulse Ox O2 Delivery O2 Flow Rate FiO2 09/10/24 06:45 75 20 101/51 (68) 96 09/10/24 06:00 45 09/10/24 06:00 Mechanical Ventilator+ 09/10/24 04:00 99.5 99.5 Intake/Output Intake and Output 09/10/24 07:00 Intake Total 1875.30 ml Output Total 3100 ml Balance -1224.70 ml Intake Oral 30 ml IV Total 1703.30 ml Tube Feeding 142 ml Output Urine Total 3100 ml General Appearance: mild distress, Other (intubated and sedated ) HEENT: Atraumatic, PERRLA Lungs: Other (Of ventilation. Diminished breath sounds.) Cardiovascular: Regular rate, Normal S1, Normal S2, No murmurs Abdomen: Normal bowel sounds, Soft, No tenderness Genitourinary: No Apparent Abnormalities (Spence catheterization) Musculoskeletal: Other (Unable to assess) Extremities: No edema, Normal pulses, No tenderness/swelling Skin: Dry, Intact Psych/Mental Status: Other (intubated and sedated ) Medications Current Medications Medications Dose Ordered Sig/Felicitas Route Start Time Stop Time Status Last Admin Dose Admin Albuterol 2.5 mg Q4HR NEB 09/01/24 14:00 09/10/24 05:47 2.5 MG Ipratropium [place] 0.5 mg Q4HR NEB 09/01/24 14:00 09/10/24 05:47 0.5 MG Ondansetron HCl 4 mg Q4HP PRN IV 09/01/24 10:30 Nitroglycerin 0.4 mg Q5MINP PRN SL 09/01/24 10:30 Fentanyl Citrate 250 ml @ 2.5 mls/hr Q24H IV 09/01/24 13:30 09/10/24 07:54 20 MLS/HR Midazolam HCl 50 ml @ 1 mls/hr Q24H IV 09/01/24 14:00 09/10/24 07:22 11 MLS/HR Vancomycin HCl 0 ml @ 0 mls/hr UD IV 09/01/24 15:45 Piperacillin Sod/ Tazobactam Sod 100 ml @ 25 mls/hr Q6HR IV 09/01/24 18:00 UNV Piperacillin Sod/ Tazobactam Sod 100 ml @ 25 mls/hr Q6H IV 09/01/24 22:00 09/10/24 04:51 25 MLS/HR Propofol 100 ml @ 4.5 mls/hr [id number] IV 09/02/24 13:00 09/10/24 04:59 13.5 MLS/HR Norepinephrine Bitartrate 250 ml @ 3.75 mls/hr Q24H IV 09/02/24 13:00 09/09/24 23:38 15 MLS/HR Furosemide 40 mg DAILY IV 09/03/24 10:00 09/09/24 07:45 40 MG Micafungin Sodium 100 mg/Sodium Chloride 100 ml @ 100 mls/hr DAILY IV 09/03/24 10:00 09/08/24 10:31 100 MLS/HR Enteral Nutritional Formula 1,000 ml 40ML/HR GT 09/04/24 08:30 Pantoprazole Sodium 40 mg DAILY IV 09/04/24 10:00 09/09/24 07:45 40 MG Enoxaparin Sodium 40 mg DAILY SC 09/04/24 10:00 09/09/24 07:47 40 MG Acetylcysteine 100 mg Q8HR NEB 09/04/24 14:00 09/10/24 05:47 100 MG Budesonide 0.5 mg BID NEB 09/04/24 10:00 09/09/24 18:15 0.5 MG Vancomycin HCl 300 ml @ 200 mls/hr Q10H IV 09/04/24 10:00 09/10/24 06:20 200 MLS/HR Diagnostic Test (Pha) 1 strip IQ4HR 09/06/24 12:00 09/10/24 07:54 1 STRIP Insulin Human Regular IQ4HR SC 09/06/24 12:00 09/10/24 08:00 3 UNITS Dextrose 50 ml UD PRN IV 09/06/24 09:00 Methylprednisolone Sodium Succinate 40 mg DAILY IV 09/07/24 10:00 09/09/24 10:59 40 MG Insulin Glargine 15 units DAILY@1000 SC 09/07/24 10:00 09/09/24 07:45 15 UNITS Dexmedetomidine HCl 400 mcg/ Dextrose 100 ml @ 7.135 mls/ hr Q14H1M IV 09/08/24 11:00 09/08/24 11:11 7.135 MLS/HR Acetaminophen 650 mg Q6HP PRN PO 09/09/24 10:45 Laboratory Results Laboratory Tests 09/10/24 03:13 Chemistry Test 09/10/24 03:13 Calcium Level 10.0 mg/dL (8.7-10.4) Blood Gas Results Test 09/09/24 08:06 09/10/24 07:37 Arterial Blood pH 7.490 (7.350-7.450) 7.430 (7.350-7.450) FiO2 % 50.0 45.0 Microbiology Microbiology Date/Time Source Procedure Growth Status 09/06/24 01:50 Nose MRSA Screen - Final Complete 09/03/24 18:40 Bronchial Washings Gram Stain - Final Complete 09/03/24 18:40 Bronchial Washings Respiratory Culture - Final Complete 09/02/24 12:30 Blood Blood Culture - Final NO GROWTH AFTER 5 DAYS OF INCUBATION. Complete Labs and/or images reviewed: Labs reviewed by me, Image(s) reviewed by me Assessment/Plan Assessment/Plan Impression: -acute hypoxic and hypercarbic respiratory failure with failure of noninvasive positive pressure ventilation -community-acquired pneumonia, probable Gram-positive/Gram-negative etiology -morbid obesity -nicotine dependence -sepsis -history of schizophrenia -NSTEMI type 2 Plan: Events: Patient was saturation improved. Recommend to decreasing PEEP to six. Spontaneous breathing trial today once patient is appropriate. -continue regular insulin sliding scale, Lantus 15 units daily -pulmonology consultation: Continue recommendations -continue antibiotic therapy with vancomycin, Zosyn, micafungin -Solu-Medrol to 40 mg daily -burrell cultures: No growth at this time -continue DVT prophylaxis -PUD prophylaxis -continue bronchodilators, add Pulmicort, add Mucomyst Patient repeat labs, chest x-ray, ABG in a.m. Critical care time spent with patient discussing and formulating plan of care: 40 minutes. This does not include time spent performing procedures. This medical document was created using an electronic medical record system with [employer] dictation system. Although this document has been carefully reviewed, there may still be some phonetic and typographical errors. These areas are purely typographical due to imperfections of the software programs, and do not reflect any compromise in the patient's medical care. Plan discussed with: Patient, Other (RN) My Orders Orders - ZUHAIR GUILLORY NP Procedure Category Date Status Time Acetaminophen Tablet PHA 09/09/24 In Process (Tylenol Tablet) 10:45 Urine Bacterial MEGHAN 09/09/24 Logged Culture 21:08 Glucose Blood PHA 09/10/24 Transmitted (Accu-Chek Comfort 12:00 Moderate Insulin Ss PHA 09/10/24 Transmitted 12:00 Dextrose 50% Syringe PHA 09/10/24 Transmitted 08:15 Hemoglobin A1c LAB 09/10/24 Transmitted 08:02 Date of Service: Sep 10, 2024 Billing Provider: ZUHAIR GUILLORY NP Common Visit Codes: [id number] CARE 30-74 MIN ZUHAIR GUILLORY NP Sep 10, 2024 08:06
[2024-09-10] MEDS ORDERED: DEXTROSE (50%) 50ML SYRG IV PRN (08:15)
--- NOTE | 2024-09-10 10:29 | DVH ---
EXAM: XY CHEST PORTABLE Indication: PNA, pain Technique: Single frontal view of the chest was obtained Comparison: XY CHEST PORTABLE on DOS: 09/09/24, XY CHEST PORTABLE on DOS: 09/08/24, XY CHEST XRAY 1 VIEW on DOS: 09/07/24, XY CHEST PORTABLE on DOS: 09/06/24, XY CHEST PORTABLE on DOS: 09/05/24 FINDINGS: Lines and Tubes: Endotracheal tube projects 2 cm above the alf. Enteric tube tip projects over the expected region of the stomach. Right internal jugular central venous catheter tip projects over th e superior vena cava. Lungs: Bibasilar opacities. Pleura: No effusion. No pneumothorax. Cardiomediastinal contours: Unremarkable Bones: No acute osseous abnormality. IMPRESSION: No significant change compared to prior exam allowing for differences in technique.
[2024-09-10] MEDS: ACCU-CHEK COMFORT CURVE STRIP VI SCH (11:39)
[2024-09-10] MEDS: InsuLIN REG 1unit/0.01ml Soln (100units/ml) SC SCH (11:40)
[2024-09-10] MEDS: ACETAMINOPHEN 325 MG TAB PO PRN (21:25)
[2024-09-10] MEDS: QUEtiapine FUMARATE 25 MG TAB PO SCH (23:16)
--- NOTE | 2024-09-10 23:27 | DVHPN2 ---
Progress Note - Dictate Date Seen: Sep 10, 2024 Medical Necessity Reason Pt with a Central, PICC or Fol: Yes The following are medically ne: Teague Catheter Reason for teague catheter: Strict I&O Subjective Patient seen and examined at bedside. Sedated, intubated on mechanical ventilator. Overnight events reviewed. vital signs Vital Sign Date Time Temp Pulse Resp B/P (MAP) Pulse Ox O2 Delivery O2 Flow Rate FiO2 09/10/24 23:07 113/57 09/10/24 22:25 101.0 09/10/24 22:06 85 20 94 30 09/10/24 18:00 Mechanical Ventilator+ Total Intake and Output 09/09/24 09/09/24 09/10/24 15:00 23:00 07:00 Intake Total 440.0 ml 730.80 ml 1226.5 ml Output Total 2300 ml 800 ml Balance 440.0 ml -1569.20 ml 426.5 ml medications Current Medications Medications Dose Ordered Sig/Felicitas Route Start Time Stop Time Status Last Admin Dose Admin Albuterol 2.5 mg Q4HR NEB 09/01/24 14:00 09/10/24 22:06 2.5 MG Ipratropium [place] 0.5 mg Q4HR NEB 09/01/24 14:00 09/10/24 22:06 0.5 MG Ondansetron HCl 4 mg Q4HP PRN IV 09/01/24 10:30 Nitroglycerin 0.4 mg Q5MINP PRN SL 09/01/24 10:30 Fentanyl Citrate 250 ml @ 2.5 mls/hr Q24H IV 09/01/24 13:30 09/10/24 07:54 27.5 MLS/HR Midazolam HCl 50 ml @ 1 mls/hr Q24H IV 09/01/24 14:00 09/10/24 23:07 9 MLS/HR Vancomycin HCl 0 ml @ 0 mls/hr UD IV 09/01/24 15:45 Piperacillin Sod/ Tazobactam Sod 100 ml @ 25 mls/hr Q6HR IV 09/01/24 18:00 UNV Piperacillin Sod/ Tazobactam Sod 100 ml @ 25 mls/hr Q6H IV 09/01/24 22:00 09/10/24 21:25 25 MLS/HR Propofol 100 ml @ 4.5 mls/hr [id number] IV 09/02/24 13:00 09/10/24 21:25 13.5 MLS/HR Norepinephrine Bitartrate 250 ml @ 3.75 mls/hr Q24H IV 09/02/24 13:00 09/10/24 18:16 3.75 MLS/HR Furosemide 40 mg DAILY IV 09/03/24 10:00 09/10/24 08:17 40 MG Micafungin Sodium 100 mg/Sodium Chloride 100 ml @ 100 mls/hr DAILY IV 09/03/24 10:00 09/10/24 08:17 100 MLS/HR Enteral Nutritional Formula 1,000 ml 40ML/HR GT 09/04/24 08:30 Pantoprazole Sodium 40 mg DAILY IV 09/04/24 10:00 09/10/24 08:19 40 MG Enoxaparin Sodium 40 mg DAILY SC 09/04/24 10:00 09/10/24 08:17 40 MG Budesonide 0.5 mg BID NEB 09/04/24 10:00 09/10/24 22:07 0.5 MG Vancomycin HCl 300 ml @ 200 mls/hr Q10H IV 09/04/24 10:00 09/10/24 15:39 200 MLS/HR Methylprednisolone Sodium Succinate 40 mg DAILY IV 09/07/24 10:00 09/10/24 08:17 40 MG Insulin Glargine 15 units DAILY@1000 SC 09/07/24 10:00 09/10/24 08:34 15 UNITS Dexmedetomidine HCl 400 mcg/ Dextrose 100 ml @ 7.135 mls/ hr Q14H1M IV 09/08/24 11:00 09/10/24 10:03 7.135 MLS/HR Acetaminophen 650 mg Q6HP PRN PO 09/09/24 10:45 09/10/24 21:25 650 MG Diagnostic Test (Pha) 1 strip Q6HR 09/10/24 12:00 09/10/24 17:31 1 STRIP Insulin Human Regular Q6HR SC 09/10/24 12:00 09/10/24 17:32 15 UNITS Dextrose 50 ml UD PRN IV 09/10/24 08:15 Quetiapine Fumarate 50 mg BID PO 09/10/24 22:00 09/10/24 23:16 50 MG objective Gen.: Patient lying in bed in medical ICU. Sedated, intubated on mechanical ventilator. Head: Normocephalic, atraumatic. Eyes: PERRLA. Ears: Normal external anatomy. Throat: Endotracheal tube and orogastric tube in place. Neck: Supple, trachea midline. Chest: Transmitted breath sounds bilaterally. Decreased air entry bilaterally. No wheezing. Bibasilar crackles. Cardiovascular: Positive S1, positive S2. Regular rate and rhythm. Abdomen: Positive bowel sounds in all 4 quadrants. Soft, nontender, nondistended. : Teague in place. Normal external genitalia. Rectal: Deferred. Skin: Warm, dry. Intact. Extremities: 2+ radial pulses bilaterally. No lower extremity edema. Neuro: Sedated. laboratory and microbiology Laboratory Tests 09/10/24 03:13 Test 09/10/24 03:13 Range/Units Serum Glucose 184 H 74-106 mg/dL Assessment/Plan Impression: Acute hypoxic respiratory failure Acute hypercarbic respiratory failure On mechanical ventilator Pleural effusions Atelectasis Morbid obesity with a BMI of 44.8 Pulmonary edema Acute exacerbation of COPD vs Asthma Elevated troponin Events: Remains on vent support On assist control with respiratory rate of 20, tidal volume 600, PEEP of 6, FiO2 at 30%. Taper FiO2 as tolerated Improved O2 requirements CPAP failed d/t apneic episodes. S/p therapeutic bronchoscopy on 09/09/24 - Mucous plugging from L6-L10 and R1-R3. Please see separate procedure note for details. Sedated on Fentanyl, Versed, Propofol Precedex drip. On pressors for hemodynamic support Levophed 14 mcg/min Titrate to keep mean arterial pressure greater than 65 mmHg. ABG reviewed, compensated CXR reviewed, demonstrates devices in place. Bibasilar opacities which may reflect atelectasis or pneumonia. Continue bronchodilators Continue antibiotics IV steroids Start Seroquel 50 mg q.12 hours Tube feeds for nutrition Monitor WBC Diurese w/ Lasix as tolerated Monitor renal function Monitor electrolytes. Supplement as necessary. Plan for CPAP in AM. S/p therapeutic bronchoscopy on 09/03/24 with RML BAL - Mucous plugging R1-R10 and L1-L10. See separate procedure note for details. Labs and imaging reviewed. Rest of plan as noted below. Plan: s/p intubation on mechanical ventilator COVID, influenza negative. On assist control with respiratory rate of 20, tidal volume 600, PEEP of 6, FiO2 at 30%. Titrate FIO2 to keep O2 saturation between 88-94%. VAP bundle Daily ABG and CXR while intubated. Sedate for ventilatory synchrony Bronchodilators IV Steroids Pressors for hemodynamic support. Titrate to keep MAP above 65 mmHg/SBP above 90 mmHg. F/u Echo to evaluate LVEF, RVSP and r/o valvular dysfunction. F/u Cardiology recommendations Plan for CTA of chest to r/o PE. Continue antibiotics. Zosyn/Vancomycin F/u cultures. Monitor renal function due to Acute kidney injury. Monitor electrolytes. Supplement as necessary. Nutritional support. Accu-Cheks, ISS. Morbid obesity, complicates all care. Diet and lifestyle modifications for weight reduction recommended. GI/DVT prophylaxis. Condition: Critical Prognosis: Poor given multiple comorbidities. Rest of plan per hospitalist and other consultants. A total of 35 minutes of critical care time was spent reviewing the patient record, examining the patient, making a diagnostic and therapeutic plan, discussing this plan with the medical personnel, following up on diagnostic studies and following the patient for clinical stability excluding any and all procedures. At least 50% of this time was spent in direct, [id number] contact. Thank you ANAHI Montoya for allowing me to participate in this patient's care. Further recommendations will depend on patient's clinical course. Please do not hesitate to contact me if you have any questions or concerns. This medical document was created using an electronic medical record system with [employer] dictation system. Although this document has been carefully reviewed, there may still be some phonetic and typographical errors. These areas are purely typographical due to imperfections of the software programs, and do not reflect any compromise in the patient's medical care. Dietary Evaluation Review Recommendations by RD: Increase Calorie Intake Comments: 1. Increase TF as tolerated to goal rate to 50 mL/hr.Goal rate will provide ~ 87 daily estimated energy needs and ~60% daily estimated protein needs. 2. Advance to CCHO 60g diet pending ADJUNCT PSYCHOLOGY PROFESSOR approval when medically feasible. 3. Continue to monitor patient's weight and labs. Expected Outcomes/Goals: 1. labs to improve 2. diet to advance 3. continue plan of care 4. f/u in 2-3 days Plan discussed with: Other (FERNANDO Deluna) Critical Care Time(min): 35 LIZ GUDINO MD Sep 10, 2024 23:27
[2024-09-11] VITALS (109 sets, daily range): BP systolic 80–173; BP diastolic 34–110; PULSE 77–134; RESP 17–33; TEMP 99.3–100.5; O2SAT 89–99
[2024-09-11 04:13] LABS: Basophils # (auto) 0.1 10 ^3/uL (0-0.2); Eosinophils # (auto) 0.1 10 ^3/uL (0-0.8); Mean Corpuscular Volume 92.5 fL (80.0-100.0)
[2024-09-11 04:18] LABS: Basophils % (auto) 0.4 % (0.0-2.0); Eosinophils % (auto) 0.5 % (0.0-7.0); Hematocrit 55.9 % (41.0-53.0); Hemoglobin 18.6 g/dL (13.5-17.5); Lymphocytes # (auto) 3.7 10 ^3/uL (0.4-5.4); Lymphocytes % (auto) 16.4 % (10.0-50.0); Mean Corpuscular Hemoglobin 30.7 pg (28.0-32.0); Mean Corpuscular Hgb Conc. 33.2 g/dL (32.0-36.0); Monocytes # (auto) 2.4 10 ^3/uL (0-1.3); Monocytes % (auto) 10.6 % (0.0-12.0); Neutrophils # (auto) 16.2 10 ^3/uL (1.6-8.6); Neutrophils % (auto) 72.1 % (37.0-80.0); Nucleated Red Blood Cells % 0.2 %; Platelet Count (auto) 286 10^3/uL (140-450); Red Blood Cells 6.04 10^6/uL (4.5-5.90); White Blood Cell 22.5 10^3/uL (4.4-10.8)
[2024-09-11 04:27] LABS: Anion Gap 10 (5-15); Carbon Dioxide 25 mmol/L (20-31); Chloride 104 mmol/L (98-107); Potassium 3.9 mmol/L (3.5-5.1); Sodium 139 mmol/L (136-145)
[2024-09-11 04:28] LABS: Calcium 10.1 mg/dL (8.7-10.4)
[2024-09-11 04:33] LABS: BUN/Creatinine Ratio 15.3 (10.0-20.0); Blood Urea Nitrogen 17 mg/dL (9-23); Glucose 261 mg/dL (74-106)
--- NOTE | 2024-09-11 05:38 | DVH ---
CHEST RADIOGRAPH Indication: pna Technique: Single frontal view of the chest was obtained Comparison: XY CHEST PORTABLE on DOS: 09/10/24, XY CHEST PORTABLE on DOS: 09/09/24, XY CHEST PORTABLE on DOS: 09/08/24 IMPRESSION: Heart appears stable in size with bibasilar airspace opacities, similar to prior examination. No siza ble effusion or pneumothorax. Support lines and tubes appear unchanged.
[2024-09-11 07:18] LABS: Base Excess -2.4 mmol/L (-2.0-3.0)
--- NOTE | 2024-09-11 12:25 | DVHPN2 ---
Subjective Failed CPAP today. Back on full support Reviewed: Care Plan, H&P, Labs, Medications, Previous Orders, Radiology, Other (Consultants) Changes from previous H/P or p: No Changes General: Per HPI Objective Vitals Vital Signs Date Time Temp Pulse Resp B/P (MAP) Pulse Ox O2 Delivery O2 Flow Rate FiO2 09/11/24 11:25 96 20 101/50 (67) 95 30 09/11/24 10:00 Mechanical Ventilator+ 09/11/24 08:00 99.9 99.9 Intake/Output Intake and Output 09/11/24 07:00 Intake Total 2378.763 ml Output Total 3925 ml Balance -1546.237 ml Intake Oral 60 ml IV Total 2318.763 ml Tube Feeding 0 ml Output Urine Total 3925 ml General Appearance: Other (intubated and sedated ) HEENT: Atraumatic, Other (Pinpoint pupils) Lungs: Clear to auscultation, Other (On the vent) Cardiovascular: Regular rate Abdomen: Normal bowel sounds, Soft Extremities: Other (1+ bilateral lower extremities edema) Skin: Dry, Intact Psych/Mental Status: Other (intubated and sedated ) Medications Current Medications Medications Dose Ordered Sig/Felicitas Route Start Time Stop Time Status Last Admin Dose Admin Albuterol 2.5 mg Q4HR NEB 09/01/24 14:00 09/11/24 09:35 2.5 MG Ipratropium [place] 0.5 mg Q4HR NEB 09/01/24 14:00 09/11/24 09:36 0.5 MG Ondansetron HCl 4 mg Q4HP PRN IV 09/01/24 10:30 Nitroglycerin 0.4 mg Q5MINP PRN SL 09/01/24 10:30 Fentanyl Citrate 250 ml @ 2.5 mls/hr Q24H IV 09/01/24 13:30 09/11/24 01:59 15 MLS/HR Midazolam HCl 50 ml @ 1 mls/hr Q24H IV 09/01/24 14:00 09/11/24 08:12 2 MLS/HR Vancomycin HCl 0 ml @ 0 mls/hr UD IV 09/01/24 15:45 Piperacillin Sod/ Tazobactam Sod 100 ml @ 25 mls/hr Q6HR IV 09/01/24 18:00 UNV Piperacillin Sod/ Tazobactam Sod 100 ml @ 25 mls/hr Q6H IV 09/01/24 22:00 09/11/24 08:33 25 MLS/HR Propofol 100 ml @ 4.5 mls/hr [id number] IV 09/02/24 13:00 09/11/24 04:02 13.5 MLS/HR Norepinephrine Bitartrate 250 ml @ 3.75 mls/hr Q24H IV 09/02/24 13:00 09/11/24 05:37 18.75 MLS/HR Furosemide 40 mg DAILY IV 09/03/24 10:00 09/11/24 07:28 40 MG Micafungin Sodium 100 mg/Sodium Chloride 100 ml @ 100 mls/hr DAILY IV 09/03/24 10:00 09/11/24 07:29 100 MLS/HR Enteral Nutritional Formula 1,000 ml 40ML/HR GT 09/04/24 08:30 Pantoprazole Sodium 40 mg DAILY IV 09/04/24 10:00 09/11/24 07:28 40 MG Enoxaparin Sodium 40 mg DAILY SC 09/04/24 10:00 09/11/24 07:29 40 MG Budesonide 0.5 mg BID NEB 09/04/24 10:00 09/11/24 05:42 0.5 MG Vancomycin HCl 300 ml @ 200 mls/hr Q10H IV 09/04/24 10:00 09/11/24 12:03 200 MLS/HR Methylprednisolone Sodium Succinate 40 mg DAILY IV 09/07/24 10:00 09/11/24 07:28 40 MG Insulin Glargine 15 units DAILY@1000 SC 09/07/24 10:00 09/11/24 11:29 15 UNITS Dexmedetomidine HCl 400 mcg/ Dextrose 100 ml @ 7.135 mls/ hr Q14H1M IV 09/08/24 11:00 09/11/24 09:39 17.838 MLS/HR Acetaminophen 650 mg Q6HP PRN PO 09/09/24 10:45 09/10/24 21:25 650 MG Diagnostic Test (Pha) 1 strip Q6HR 09/10/24 12:00 09/11/24 11:36 1 STRIP Insulin Human Regular Q6HR SC 09/10/24 12:00 09/11/24 11:37 15 UNITS Dextrose 50 ml UD PRN IV 09/10/24 08:15 Quetiapine Fumarate 50 mg BID PO 09/10/24 22:00 09/11/24 07:29 50 MG Laboratory Results Laboratory Tests 09/11/24 03:44 Chemistry Test 09/11/24 03:44 Calcium Level 10.1 mg/dL (8.7-10.4) Blood Gas Results Test 09/11/24 07:10 Arterial Blood pH 7.410 (7.350-7.450) FiO2 % 30.0 Microbiology Microbiology Date/Time Source Procedure Growth Status 09/06/24 01:50 Nose MRSA Screen - Final Complete 09/03/24 18:40 Bronchial Washings Gram Stain - Final Complete 09/03/24 18:40 Bronchial Washings Respiratory Culture - Final Complete 09/02/24 12:30 Blood Blood Culture - Final NO GROWTH AFTER 5 DAYS OF INCUBATION. Complete Assessment/Plan Assessment/Plan Acute respiratory failure Pneumonia and sepsis COPD exacerbation Pulmonary edema Pleural effusion Non-STEMI Morbid obesity with BMI 44.8 Schizophrenia Nicotine dependency Plan: Ventilator support. Failed CPAP trial this morning. We will try again tomorrow. Check urine for infection. ABGs. Chest x-ray. Review antibiotics in light of continues leukocytosis. We will add another antibiotic for atypical. Further plan of per orders. Total critical care time 45 minutes Plan discussed with: Other (Nursing) Date of Service: Sep 11, 2024 Billing Provider: INDIO CRISTOBAL MD Common Visit Codes: 99392-[id number] CARE 30-74 MIN INDIO CRISTOBAL MD Sep 11, 2024 12:25
[2024-09-11] MEDS: AZITHROMYCIN 500MG/ 250ML 250 ML IV ONE (14:21)
--- NOTE | 2024-09-11 22:37 | DVHPN2 ---
Progress Note - Dictate Date Seen: Sep 11, 2024 Medical Necessity Reason Pt with a Central, PICC or Fol: Yes The following are medically ne: Teague Catheter Reason for teague catheter: Strict I&O Subjective Patient seen and examined at bedside. Sedated, intubated on mechanical ventilator. Overnight events reviewed. vital signs Vital Sign Date Time Temp Pulse Resp B/P (MAP) Pulse Ox O2 Delivery O2 Flow Rate FiO2 09/11/24 22:21 92 20 119/81 (94) 89 30 09/11/24 18:00 Mechanical Ventilator+ 09/11/24 16:00 99.3 99.3 Total Intake and Output 09/10/24 09/10/24 09/11/24 15:00 23:00 07:00 Intake Total 555.515 ml 916.124 ml 907.124 ml Output Total 2700 ml 1225 ml Balance 555.515 ml -1783.876 ml -317.876 ml medications Current Medications Medications Dose Ordered Sig/Felicitas Route Start Time Stop Time Status Last Admin Dose Admin Albuterol 2.5 mg Q4HR NEB 09/01/24 14:00 09/11/24 22:21 2.5 MG Ipratropium [place] 0.5 mg Q4HR NEB 09/01/24 14:00 09/11/24 22:21 0.5 MG Ondansetron HCl 4 mg Q4HP PRN IV 09/01/24 10:30 Nitroglycerin 0.4 mg Q5MINP PRN SL 09/01/24 10:30 Fentanyl Citrate 250 ml @ 2.5 mls/hr Q24H IV 09/01/24 13:30 09/11/24 14:45 20 MLS/HR Midazolam HCl 50 ml @ 1 mls/hr Q24H IV 09/01/24 14:00 09/11/24 20:59 10 MLS/HR Vancomycin HCl 0 ml @ 0 mls/hr UD IV 09/01/24 15:45 Piperacillin Sod/ Tazobactam Sod 100 ml @ 25 mls/hr Q6HR IV 09/01/24 18:00 UNV Piperacillin Sod/ Tazobactam Sod 100 ml @ 25 mls/hr Q6H IV 09/01/24 22:00 09/11/24 16:09 25 MLS/HR Propofol 100 ml @ 4.5 mls/hr [id number] IV 09/02/24 13:00 09/11/24 04:02 13.5 MLS/HR Norepinephrine Bitartrate 250 ml @ 3.75 mls/hr Q24H IV 09/02/24 13:00 09/11/24 05:37 18.75 MLS/HR Furosemide 40 mg DAILY IV 09/03/24 10:00 09/11/24 07:28 40 MG Micafungin Sodium 100 mg/Sodium Chloride 100 ml @ 100 mls/hr DAILY IV 09/03/24 10:00 09/11/24 07:29 100 MLS/HR Enteral Nutritional Formula 1,000 ml 40ML/HR GT 09/04/24 08:30 Pantoprazole Sodium 40 mg DAILY IV 09/04/24 10:00 09/11/24 07:28 40 MG Enoxaparin Sodium 40 mg DAILY SC 09/04/24 10:00 09/11/24 07:29 40 MG Budesonide 0.5 mg BID NEB 09/04/24 10:00 09/11/24 18:26 0.5 MG Vancomycin HCl 300 ml @ 200 mls/hr Q10H IV 09/04/24 10:00 09/11/24 12:03 200 MLS/HR Methylprednisolone Sodium Succinate 40 mg DAILY IV 09/07/24 10:00 09/11/24 07:28 40 MG Insulin Glargine 15 units DAILY@1000 SC 09/07/24 10:00 09/11/24 11:29 15 UNITS Dexmedetomidine HCl 400 mcg/ Dextrose 100 ml @ 7.135 mls/ hr Q14H1M IV 09/08/24 11:00 09/11/24 21:13 17.838 MLS/HR Acetaminophen 650 mg Q6HP PRN PO 09/09/24 10:45 09/11/24 13:04 650 MG Diagnostic Test (Pha) 1 strip Q6HR 09/10/24 12:00 09/11/24 17:20 1 STRIP Insulin Human Regular Q6HR SC 09/10/24 12:00 09/11/24 17:22 15 UNITS Dextrose 50 ml UD PRN IV 09/10/24 08:15 Azithromycin 250 ml @ 125 mls/hr DAILY IV 09/12/24 10:00 Quetiapine Fumarate 100 mg BID PO 09/11/24 22:00 objective Gen.: Patient lying in bed in medical ICU. Sedated, intubated on mechanical ventilator. Head: Normocephalic, atraumatic. Eyes: PERRLA. Ears: Normal external anatomy. Throat: Endotracheal tube and orogastric tube in place. Neck: Supple, trachea midline. Chest: Transmitted breath sounds bilaterally. Decreased air entry bilaterally. No wheezing. Bibasilar crackles. Cardiovascular: Positive S1, positive S2. Regular rate and rhythm. Abdomen: Positive bowel sounds in all 4 quadrants. Soft, nontender, nondistended. : Teague in place. Normal external genitalia. Rectal: Deferred. Skin: Warm, dry. Intact. Extremities: 2+ radial pulses bilaterally. No lower extremity edema. Neuro: Sedated. laboratory and microbiology Laboratory Tests 09/11/24 03:44 Test 09/11/24 03:44 Range/Units Serum Glucose 261 H 74-106 mg/dL Assessment/Plan Impression: Acute hypoxic respiratory failure Acute hypercarbic respiratory failure On mechanical ventilator Pleural effusions Atelectasis Morbid obesity with a BMI of 44.8 Pulmonary edema Acute exacerbation of COPD vs Asthma Elevated troponin Events: Remains on vent support On assist control with respiratory rate of 20, tidal volume 600, PEEP of 6, FiO2 at 30%. Taper FiO2 as tolerated Improved O2 requirements CPAP failed Patient became agitated. Increase Seroquel to 100 mg every 12 hours. On fentanyl and Versed. Okay to initiate Precedex as we come down off sedation. Continue antibiotics On pressors for hemodynamic support Titrate to keep mean arterial pressure greater than 65 mmHg. ABG reviewed, compensated CXR reviewed, demonstrates devices in place. Bibasilar opacities which may reflect atelectasis or pneumonia. Continue bronchodilators Continue antibiotics IV steroids, completed course. Tube feeds for nutrition Monitor WBC Diurese w/ Lasix as tolerated Monitor renal function Monitor electrolytes. Supplement as necessary. Plan for CPAP in AM. Labs and imaging reviewed. Rest of plan as noted below. Plan: s/p intubation on mechanical ventilator COVID, influenza negative. On assist control with respiratory rate of 20, tidal volume 600, PEEP of 6, FiO2 at 30%. Titrate FIO2 to keep O2 saturation between 88-94%. VAP bundle Daily ABG and CXR while intubated. Sedate for ventilatory synchrony Bronchodilators IV Steroids Pressors for hemodynamic support. Titrate to keep MAP above 65 mmHg/SBP above 90 mmHg. F/u Echo to evaluate LVEF, RVSP and r/o valvular dysfunction. F/u Cardiology recommendations Plan for CTA of chest to r/o PE. Continue antibiotics. Zosyn/Vancomycin F/u cultures. Monitor renal function due to Acute kidney injury. Monitor electrolytes. Supplement as necessary. Nutritional support. Accu-Cheks, ISS. Morbid obesity, complicates all care. Diet and lifestyle modifications for weight reduction recommended. GI/DVT prophylaxis. Condition: Critical Prognosis: Poor given multiple comorbidities. Rest of plan per hospitalist and other consultants. A total of 35 minutes of critical care time was spent reviewing the patient record, examining the patient, making a diagnostic and therapeutic plan, discussing this plan with the medical personnel, following up on diagnostic studies and following the patient for clinical stability excluding any and all procedures. At least 50% of this time was spent in direct, [id number] contact. Thank you ANAHI Montoya for allowing me to participate in this patient's care. Further recommendations will depend on patient's clinical course. Please do not hesitate to contact me if you have any questions or concerns. This medical document was created using an electronic medical record system with [employer] dictation system. Although this document has been carefully reviewed, there may still be some phonetic and typographical errors. These areas are purely typographical due to imperfections of the software programs, and do not reflect any compromise in the patient's medical care. Dietary Evaluation Review Recommendations by RD: Increase Calorie Intake Comments: 1. Increase TF as tolerated to goal rate to 50 mL/hr.Goal rate will provide ~ 87 daily estimated energy needs and ~60% daily estimated protein needs. 2. Advance to CCHO 60g diet pending PRODUCT SAFETY TEST ENGINEER approval when medically feasible. 3. Continue to monitor patient's weight and labs. Expected Outcomes/Goals: 1. labs to improve 2. diet to advance 3. continue plan of care 4. f/u in 2-3 days Plan discussed with: Other (RN garry, RT, MD) Critical Care Time(min): 35 ILZ GUDINO MD Sep 11, 2024 22:37
[2024-09-11] MEDS: QUEtiapine FUMARATE 100 MG TAB PO SCH (22:39)
[2024-09-12] VITALS (106 sets, daily range): BP systolic 79–122; BP diastolic 50–84; PULSE 91–126; RESP 19–25; TEMP 98.7–99.5; O2SAT 88–98
[2024-09-12 04:48] LABS: Basophils # (auto) 0 10 ^3/uL (0-0.2); Eosinophils # (auto) 0.1 10 ^3/uL (0-0.8); Neutrophils % (auto) 73.6 % (37.0-80.0)
[2024-09-12 04:52] LABS: Basophils % (auto) 0.2 % (0.0-2.0); Eosinophils % (auto) 0.6 % (0.0-7.0); Hematocrit 54.8 % (41.0-53.0); Hemoglobin 18.3 g/dL (13.5-17.5); Lymphocytes # (auto) 3.2 10 ^3/uL (0.4-5.4); Lymphocytes % (auto) 16.4 % (10.0-50.0); Mean Corpuscular Hemoglobin 30.8 pg (28.0-32.0); Mean Corpuscular Hgb Conc. 33.4 g/dL (32.0-36.0); Mean Corpuscular Volume 92.2 fL (80.0-100.0); Monocytes # (auto) 1.8 10 ^3/uL (0-1.3); Monocytes % (auto) 9.2 % (0.0-12.0); Neutrophils # (auto) 14.2 10 ^3/uL (1.6-8.6); Nucleated Red Blood Cells % 0.2 %; Platelet Count (auto) 224 10^3/uL (140-450); Red Blood Cells 5.94 10^6/uL (4.5-5.90); Red Cell Distribution Width 13.9 % (11.8-14.3); White Blood Cell 19.3 10^3/uL (4.4-10.8)
[2024-09-12 05:00] LABS: Anion Gap 9 (5-15); Carbon Dioxide 26 mmol/L (20-31); Chloride 104 mmol/L (98-107); Potassium 4.1 mmol/L (3.5-5.1); Sodium 139 mmol/L (136-145)
[2024-09-12 05:01] LABS: Calcium 10.1 mg/dL (8.7-10.4)
[2024-09-12 05:07] LABS: BUN/Creatinine Ratio 19.8 (10.0-20.0); Blood Urea Nitrogen 22 mg/dL (9-23); Magnesium 2.1 mg/dL (1.6-2.6)
[2024-09-12 05:10] LABS: Glucose 266 mg/dL (74-106)
[2024-09-12] MEDS: IPRATROPIUM BROM 0.5 MG/2.5ML INH SOL NEB ONE (05:44)
[2024-09-12] MEDS: ALBUTEROL SULF 2.5 MG/0.5ML(0.5%) NEB SOLN NEB ONE (05:45)
--- NOTE | 2024-09-12 06:09 | DVH ---
CHEST RADIOGRAPH Indication: fu Technique: Single frontal view of the chest was obtained COMPARISON: XY CHEST PORTABLE on DOS: 09/11/24, XY CHEST PORTABLE on DOS: 09/10/24, XY CHEST PORTABLE on DOS: 09/09/24, XY CHEST PORTABLE on DOS: 09/08/24, XY CHEST XRAY 1 VIEW on DOS: 09/07/24 FINDINGS: Lines and Tubes: Endotracheal tube, enteric catheter and right central venous catheter in satisfactor y position. Lungs: Congestion. Left basilar subsegmental atelectasis. Pleura: No effusion. No pneumothorax. Cardiomediastinal contours: Unremarkable Bones: Unremarkable IMPRESSION: Lines and tubes in satisfactory position. No significant interval change.
[2024-09-12 08:26] LABS: Base Excess -1.5 mmol/L (-2.0-3.0)
--- NOTE | 2024-09-12 08:48 | ECG ---
[facility] Test Date: 2024-09-12 Test Time: 03:01:44 Pat Name: MAGGIE MOFFETT Department: Room: [address] [place] [address] A Gender: M Bark Grinder: : 1985 Requested By: INDIO CRISTOBAL Order Number: [id number] Reading MD: Measurements Intervals [place] Rate: 112 P: 67 WA: 136 QRS: 104 QRSD: 78 T: 73 QT: 312 QTc: 425 Interpretive Statements Sinus tachycardia Rightward axis Please click the below link to view image of tracing.
[2024-09-12] MEDS: AZITHROMYCIN 500MG/ 250ML 250 ML IV SCH (09:54)
--- NOTE | 2024-09-12 10:32 | DVHPN2 ---
Subjective Desaturated last night. Back up on oxygen to 100%. Reviewed: Care Plan, H&P, Labs, Medications, Previous Orders, Radiology, Other (Consultants) Changes from previous H/P or p: No Changes General: Per HPI Objective Vitals Vital Signs Date Time Temp Pulse Resp B/P (MAP) Pulse Ox O2 Delivery O2 Flow Rate FiO2 09/12/24 10:17 111 20 106/71 (83) 93 90 09/12/24 06:00 Mechanical Ventilator+ 09/12/24 04:00 99.5 99.5 Intake/Output Intake and Output 09/12/24 07:00 Intake Total 2465.701 ml Output Total 3750 ml Balance -1284.299 ml Intake Oral 120 ml IV Total 2345.701 ml Output Urine Total 3750 ml General Appearance: Other (intubated and sedated ) HEENT: Atraumatic, Other (Pinpoint pupils) Lungs: Clear to auscultation, Other (On the vent) Cardiovascular: Regular rate Abdomen: Normal bowel sounds, Soft Extremities: Other (1+ bilateral lower extremities edema) Skin: Dry, Intact Psych/Mental Status: Other (intubated and sedated ) Medications Current Medications Medications Dose Ordered Sig/Felicitas Route Start Time Stop Time Status Last Admin Dose Admin Albuterol 2.5 mg Q4HR NEB 09/01/24 14:00 09/12/24 10:26 2.5 MG Ipratropium [place] 0.5 mg Q4HR NEB 09/01/24 14:00 09/12/24 10:26 0.5 MG Ondansetron HCl 4 mg Q4HP PRN IV 09/01/24 10:30 Nitroglycerin 0.4 mg Q5MINP PRN SL 09/01/24 10:30 Fentanyl Citrate 250 ml @ 2.5 mls/hr Q24H IV 09/01/24 13:30 09/12/24 03:52 17.5 MLS/HR Midazolam HCl 50 ml @ 1 mls/hr Q24H IV 09/01/24 14:00 09/12/24 08:06 8 MLS/HR Vancomycin HCl 0 ml @ 0 mls/hr UD IV 09/01/24 15:45 Piperacillin Sod/ Tazobactam Sod 100 ml @ 25 mls/hr Q6HR IV 09/01/24 18:00 UNV Piperacillin Sod/ Tazobactam Sod 100 ml @ 25 mls/hr Q6H IV 09/01/24 22:00 09/12/24 09:53 25 MLS/HR Propofol 100 ml @ 4.5 mls/hr [id number] IV 09/02/24 13:00 09/11/24 04:02 13.5 MLS/HR Norepinephrine Bitartrate 250 ml @ 3.75 mls/hr Q24H IV 09/02/24 13:00 09/11/24 05:37 18.75 MLS/HR Furosemide 40 mg DAILY IV 09/03/24 10:00 09/12/24 09:54 40 MG Micafungin Sodium 100 mg/Sodium Chloride 100 ml @ 100 mls/hr DAILY IV 09/03/24 10:00 09/12/24 09:58 100 MLS/HR Enteral Nutritional Formula 1,000 ml 40ML/HR GT 09/04/24 08:30 Pantoprazole Sodium 40 mg DAILY IV 09/04/24 10:00 09/12/24 09:54 40 MG Enoxaparin Sodium 40 mg DAILY SC 09/04/24 10:00 09/12/24 09:55 40 MG Budesonide 0.5 mg BID NEB 09/04/24 10:00 09/12/24 05:45 0.5 MG Insulin Glargine 15 units DAILY@1000 SC 09/07/24 10:00 09/12/24 10:01 15 UNITS Dexmedetomidine HCl 400 mcg/ Dextrose 100 ml @ 7.135 mls/ hr Q14H1M IV 09/08/24 11:00 09/12/24 09:43 17.838 MLS/HR Acetaminophen 650 mg Q6HP PRN PO 09/09/24 10:45 09/11/24 13:04 650 MG Diagnostic Test (Pha) 1 strip Q6HR 09/10/24 12:00 09/12/24 05:54 1 STRIP Insulin Human Regular Q6HR SC 09/10/24 12:00 09/12/24 05:53 9 UNITS Dextrose 50 ml UD PRN IV 09/10/24 08:15 Azithromycin 250 ml @ 125 mls/hr DAILY IV 09/12/24 10:00 09/12/24 09:54 125 MLS/HR Quetiapine Fumarate 100 mg BID PO 09/11/24 22:00 09/12/24 09:55 100 MG Vancomycin HCl 250 ml @ 200 mls/hr Q8H IV 09/12/24 16:00 Laboratory Results Laboratory Tests 09/12/24 04:00 Chemistry Test 09/12/24 04:00 Calcium Level 10.1 mg/dL (8.7-10.4) Magnesium Level 2.1 mg/dL (1.6-2.6) Blood Gas Results Test 09/12/24 07:47 Arterial Blood pH 7.392 (7.350-7.450) FiO2 % 50.0 Microbiology Microbiology Date/Time Source Procedure Growth Status 09/11/24 00:00 Voided Urine Urine Culture - Preliminary Resulted 09/06/24 01:50 Nose MRSA Screen - Final Complete 09/03/24 18:40 Bronchial Washings Gram Stain - Final Complete 09/03/24 18:40 Bronchial Washings Respiratory Culture - Final Complete 09/02/24 12:30 Blood Blood Culture - Final NO GROWTH AFTER 5 DAYS OF INCUBATION. Complete Assessment/Plan Assessment/Plan Acute respiratory failure Pneumonia and sepsis COPD exacerbation Pulmonary edema Pleural effusion Non-STEMI Morbid obesity with BMI 44.8 Schizophrenia Nicotine dependency Diabetes with A1c 6.9 Plan: Ventilator support. Oxygen at 100% FiO2. Continue current plan of care Plan discussed with: Other (Nursing) My Orders Orders - INDIO CRISTOBAL MD Procedure Category Date Status Time Azithromycin 500mg/ PHA 09/12/24 In Process 250ml (Zithromax 50 10:00 Respiratory Culture MEGHAN 09/11/24 Logged W/ Gs 14:11 Blood Culture MEGHAN 09/11/24 In Process 12:27 Chest Portable XY 09/12/24 Resulted 05:00 Abg W/ Co-Ox RT 09/12/24 Logged 04:00 Urine Bacterial MEGHAN 09/11/24 In Process Culture 13:16 Date of Service: Sep 12, 2024 Billing Provider: INDIO CRISTOBAL MD Common Visit Codes: [id number] INP/OBS CARE(HIGH) INDIO CRISTOBAL MD Sep 12, 2024 10:32
[2024-09-12] MEDS: VANCOMYCIN 1.25GM/250ML 250 ML IV SCH (16:33)
--- NOTE | 2024-09-12 23:46 | DVHPN2 ---
Progress Note - Dictate Date Seen: Sep 12, 2024 Medical Necessity Reason Pt with a Central, PICC or Fol: Yes The following are medically ne: Teague Catheter Reason for teague catheter: Strict I&O Subjective Patient seen and examined at bedside. Sedated, intubated on mechanical ventilator. Overnight events reviewed. vital signs Vital Sign Date Time Temp Pulse Resp B/P (MAP) Pulse Ox O2 Delivery O2 Flow Rate FiO2 09/12/24 23:15 101 20 88/58 (68) 97 09/12/24 22:00 70 09/12/24 22:00 Mechanical Ventilator+ 09/12/24 20:00 99.5 99.5 Total Intake and Output 09/11/24 09/11/24 09/12/24 15:00 23:00 07:00 Intake Total 1175.886 ml 556.704 ml 776.449 ml Output Total 2850 ml 900 ml Balance 1175.886 ml -2293.296 ml -123.551 ml medications Current Medications Medications Dose Ordered Sig/Felicitas Route Start Time Stop Time Status Last Admin Dose Admin Albuterol 2.5 mg Q4HR NEB 09/01/24 14:00 09/12/24 21:57 2.5 MG Ipratropium [place] 0.5 mg Q4HR NEB 09/01/24 14:00 09/12/24 21:57 0.5 MG Ondansetron HCl 4 mg Q4HP PRN IV 09/01/24 10:30 Nitroglycerin 0.4 mg Q5MINP PRN SL 09/01/24 10:30 Fentanyl Citrate 250 ml @ 2.5 mls/hr Q24H IV 09/01/24 13:30 09/12/24 17:00 17.5 MLS/HR Midazolam HCl 50 ml @ 1 mls/hr Q24H IV 09/01/24 14:00 09/12/24 22:39 10 MLS/HR Vancomycin HCl 0 ml @ 0 mls/hr UD IV 09/01/24 15:45 Piperacillin Sod/ Tazobactam Sod 100 ml @ 25 mls/hr Q6HR IV 09/01/24 18:00 UNV Piperacillin Sod/ Tazobactam Sod 100 ml @ 25 mls/hr Q6H IV 09/01/24 22:00 09/12/24 22:39 25 MLS/HR Propofol 100 ml @ 4.5 mls/hr [id number] IV 09/02/24 13:00 09/12/24 20:20 4.5 MLS/HR Norepinephrine Bitartrate 250 ml @ 3.75 mls/hr Q24H IV 09/02/24 13:00 09/11/24 05:37 18.75 MLS/HR Furosemide 40 mg DAILY IV 09/03/24 10:00 09/12/24 09:54 40 MG Micafungin Sodium 100 mg/Sodium Chloride 100 ml @ 100 mls/hr DAILY IV 09/03/24 10:00 09/12/24 09:58 100 MLS/HR Enteral Nutritional Formula 1,000 ml 40ML/HR GT 09/04/24 08:30 Pantoprazole Sodium 40 mg DAILY IV 09/04/24 10:00 09/12/24 09:54 40 MG Enoxaparin Sodium 40 mg DAILY SC 09/04/24 10:00 09/12/24 09:55 40 MG Budesonide 0.5 mg BID NEB 09/04/24 10:00 09/12/24 18:26 0.5 MG Insulin Glargine 15 units DAILY@1000 SC 09/07/24 10:00 09/12/24 10:01 15 UNITS Dexmedetomidine HCl 400 mcg/ Dextrose 100 ml @ 7.135 mls/ hr Q14H1M IV 09/08/24 11:00 09/12/24 09:43 17.838 MLS/HR Acetaminophen 650 mg Q6HP PRN PO 09/09/24 10:45 09/11/24 13:04 650 MG Diagnostic Test (Pha) 1 strip Q6HR 09/10/24 12:00 09/12/24 17:51 1 STRIP Insulin Human Regular Q6HR SC 09/10/24 12:00 09/12/24 17:47 9 UNITS Dextrose 50 ml UD PRN IV 09/10/24 08:15 Azithromycin 250 ml @ 125 mls/hr DAILY IV 09/12/24 10:00 09/12/24 09:54 125 MLS/HR Quetiapine Fumarate 100 mg BID PO 09/11/24 22:00 09/12/24 22:39 100 MG Vancomycin HCl 250 ml @ 200 mls/hr Q8H IV 09/12/24 16:00 09/12/24 16:33 200 MLS/HR objective Gen.: Patient lying in bed in medical ICU. Sedated, intubated on mechanical ventilator. Head: Normocephalic, atraumatic. Eyes: PERRLA. Ears: Normal external anatomy. Throat: Endotracheal tube and orogastric tube in place. Neck: Supple, trachea midline. Chest: Transmitted breath sounds bilaterally. Decreased air entry bilaterally. No wheezing. Bibasilar crackles. Cardiovascular: Positive S1, positive S2. Regular rate and rhythm. Abdomen: Positive bowel sounds in all 4 quadrants. Soft, nontender, nondistended. : Teague in place. Normal external genitalia. Rectal: Deferred. Skin: Warm, dry. Intact. Extremities: 2+ radial pulses bilaterally. No lower extremity edema. Neuro: Sedated. laboratory and microbiology Laboratory Tests 09/12/24 04:00 Test 09/12/24 04:00 Range/Units Serum Glucose 266 H 74-106 mg/dL Assessment/Plan Impression: Acute hypoxic respiratory failure Acute hypercarbic respiratory failure On mechanical ventilator Pleural effusions Atelectasis Morbid obesity with a BMI of 44.8 Pulmonary edema Acute exacerbation of COPD vs Asthma Elevated troponin Events: Remains on vent support On assist control with respiratory rate of 20, tidal volume 600, PEEP of 6, FiO2 at 65%. Taper FiO2 as tolerated Increased FiO2 requirements Patient desaturated with turns Continue Seroquel to 100 mg every 12 hours. Off steroids On Propofol, Fentanyl and Versed. Okay to initiate Precedex as we come down off sedation. Continue antibiotics Continue bronchodilators Off pressors, hemodynamically stable. ABG reviewed, compensated CXR reviewed, demonstrates devices in place. Congestion. Left basilar subsegmental atelectasis. Tube feeds for nutritional support Monitor WBC Diurese w/ Lasix as tolerated Monitor renal function Monitor electrolytes. Supplement as necessary. SBT/LAINE. Labs and imaging reviewed. Rest of plan as noted below. Plan: s/p intubation on mechanical ventilator COVID, influenza negative. On assist control with respiratory rate of 20, tidal volume 600, PEEP of 6, FiO2 at 65%. Titrate FIO2 to keep O2 saturation between 88-94%. VAP bundle Daily ABG and CXR while intubated. Sedate for ventilatory synchrony Bronchodilators Steroids - completed Pressors if necessary for hemodynamic support. Titrate to keep MAP above 65 mmHg/SBP above 90 mmHg. F/u Echo to evaluate LVEF, RVSP and r/o valvular dysfunction. F/u Cardiology recommendations Plan for CTA of chest to r/o PE. Antibiotics. Zosyn/Vancomycin F/u cultures. Monitor renal function due to Acute kidney injury. Monitor electrolytes. Supplement as necessary. Nutritional support. Accu-Cheks, ISS. Morbid obesity, complicates all care. Diet and lifestyle modifications for weight reduction recommended. GI/DVT prophylaxis. Condition: Critical Prognosis: Poor given multiple comorbidities. Rest of plan per hospitalist and other consultants. A total of 35 minutes of critical care time was spent reviewing the patient record, examining the patient, making a diagnostic and therapeutic plan, discussing this plan with the medical personnel, following up on diagnostic studies and following the patient for clinical stability excluding any and all procedures. At least 50% of this time was spent in direct, clac-la-dpti contact. Thank you ANAHI Montoya for allowing me to participate in this patient's care. Further recommendations will depend on patient's clinical course. Please do not hesitate to contact me if you have any questions or concerns. This medical document was created using an electronic medical record system with [employer] dictation system. Although this document has been carefully reviewed, there may still be some phonetic and typographical errors. These areas are purely typographical due to imperfections of the software programs, and do not reflect any compromise in the patient's medical care. Dietary Evaluation Review Recommendations by RD: Increase Calorie Intake Comments: 1. Increase TF as tolerated to goal rate to 50 mL/hr.Goal rate will provide ~ 87 daily estimated energy needs and ~60% daily estimated protein needs. 2. Advance to CCHO 60g diet pending [employer] approval when medically feasible. 3. Continue to monitor patient's weight and labs. Expected Outcomes/Goals: 1. labs to improve 2. diet to advance 3. continue plan of care 4. f/u in 2-3 days Plan discussed with: Other (FERNANDO Deluna) Critical Care Time(min): 35 LIZ GUDINO MD Sep 12, 2024 23:46
[2024-09-13] VITALS (110 sets, daily range): BP systolic 76–121; BP diastolic 48–83; PULSE 93–129; RESP 16–35; TEMP 98.8–100.5; O2SAT 88–100
[2024-09-13 04:13] LABS: Basophils # (auto) 0.1 10 ^3/uL (0-0.2); Basophils % (auto) 0.3 % (0.0-2.0); Eosinophils # (auto) 0.1 10 ^3/uL (0-0.8); Eosinophils % (auto) 0.5 % (0.0-7.0); Hematocrit 51.9 % (41.0-53.0); Hemoglobin 17.4 g/dL (13.5-17.5); Lymphocytes % (auto) 13.6 % (10.0-50.0); Mean Corpuscular Hgb Conc. 33.4 g/dL (32.0-36.0); Mean Corpuscular Volume 92.7 fL (80.0-100.0); Monocytes # (auto) 1.5 10 ^3/uL (0-1.3); Monocytes % (auto) 6.8 % (0.0-12.0); Neutrophils # (auto) 17.2 10 ^3/uL (1.6-8.6); Neutrophils % (auto) 78.8 % (37.0-80.0); Nucleated Red Blood Cells % 0.1 %; Platelet Count (auto) 171 10^3/uL (140-450); Red Blood Cells 5.59 10^6/uL (4.5-5.90); Red Cell Distribution Width 13.9 % (11.8-14.3); White Blood Cell 21.8 10^3/uL (4.4-10.8)
[2024-09-13 04:17] LABS: Alanine Aminotransferase 23 U/L (7-40); Albumin 3.8 g/dL (3.2-4.8); Alkaline Phosphatase 86 U/L (46-116); Anion Gap 9 (5-15); Aspartate Aminotransferase 29 U/L (13-40); BUN/Creatinine Ratio 24.4 (10.0-20.0); Calcium 9.8 mg/dL (8.7-10.4); Carbon Dioxide 26 mmol/L (20-31); Chloride 106 mmol/L (98-107); Sodium 141 mmol/L (136-145)
[2024-09-13 04:18] LABS: Bilirubin, Total 0.8 mg/dL (0.2-1.0); Total Protein 6.7 g/dL (5.7-8.2)
[2024-09-13 04:33] LABS: Blood Urea Nitrogen 33 mg/dL (9-23); Glucose 131 mg/dL (74-106); Potassium 3.2 mmol/L (3.5-5.1)
--- NOTE | 2024-09-13 04:52 | DVH ---
CHEST RADIOGRAPH Indication: fu Technique: Single frontal view of the chest was obtained COMPARISON: XY CHEST PORTABLE on DOS: 09/12/24, XY CHEST PORTABLE on DOS: 09/11/24, XY CHEST PORTABLE on DOS: 09/10/24, XY CHEST PORTABLE on DOS: 09/09/24, XY CHEST PORTABLE on DOS: 09/08/24, XY CHEST PORTABLE on DOS: 09/12/24 FINDINGS: Lines and Tubes: Endotracheal tube, enteric catheter and right central venous catheter in satisfactor y position. Lungs: Congestion. Left basilar subsegmental atelectasis. Pleura: No effusion. No pneumothorax. Cardiomediastinal contours: Unremarkable Bones: Unremarkable IMPRESSION: Lines and tubes in satisfactory position. No significant interval change.
[2024-09-13 07:01] LABS: Base Excess -2.1 mmol/L (-2.0-3.0)
--- NOTE | 2024-09-13 09:30 | DVHPN2 ---
Subjective Intubated and chemically sedated. Reviewed: Care Plan, H&P, Labs, Medications, Previous Orders, Radiology, Other (Consultants) Changes from previous H/P or p: No Changes General: Per HPI Objective Vitals Vital Signs Date Time Temp Pulse Resp B/P (MAP) Pulse Ox O2 Delivery O2 Flow Rate FiO2 09/13/24 09:24 100 20 102/63 (76) 94 45 09/13/24 07:47 Mechanical Ventilator+ 09/13/24 04:00 98.8 98.8 Intake/Output Intake and Output 09/13/24 07:00 Intake Total 2184.542 ml Output Total 1950 ml Balance 234.542 ml Intake Oral 70 ml IV Total 2114.542 ml Output Urine Total 1950 ml General Appearance: Other (intubated and sedated ) HEENT: Atraumatic, Other (Pinpoint pupils) Lungs: Clear to auscultation, Other (On the vent) Cardiovascular: Regular rate Abdomen: Normal bowel sounds, Soft Musculoskeletal: Weak motor strength RUE, Weak motor strength LUE, Weak motor strength RLE, Weak motor strength LLE Extremities: Other (1+ bilateral lower extremities edema) Skin: Dry, Intact Psych/Mental Status: Other (intubated and sedated ) Medications Current Medications Medications Dose Ordered Sig/Felicitas Route Start Time Stop Time Status Last Admin Dose Admin Albuterol 2.5 mg Q4HR NEB 09/01/24 14:00 09/13/24 05:59 2.5 MG Ipratropium [place] 0.5 mg Q4HR NEB 09/01/24 14:00 09/13/24 05:59 0.5 MG Ondansetron HCl 4 mg Q4HP PRN IV 09/01/24 10:30 Nitroglycerin 0.4 mg Q5MINP PRN SL 09/01/24 10:30 Fentanyl Citrate 250 ml @ 2.5 mls/hr Q24H IV 09/01/24 13:30 09/13/24 06:21 20 MLS/HR Midazolam HCl 50 ml @ 1 mls/hr Q24H IV 09/01/24 14:00 09/13/24 03:44 10 MLS/HR Vancomycin HCl 0 ml @ 0 mls/hr UD IV 09/01/24 15:45 Piperacillin Sod/ Tazobactam Sod 100 ml @ 25 mls/hr Q6HR IV 09/01/24 18:00 UNV Piperacillin Sod/ Tazobactam Sod 100 ml @ 25 mls/hr Q6H IV 09/01/24 22:00 09/13/24 03:35 25 MLS/HR Propofol 100 ml @ 4.5 mls/hr [id number] IV 09/02/24 13:00 09/13/24 03:22 13.5 MLS/HR Norepinephrine Bitartrate 250 ml @ 3.75 mls/hr Q24H IV 09/02/24 13:00 09/11/24 05:37 18.75 MLS/HR Furosemide 40 mg DAILY IV 09/03/24 10:00 09/12/24 09:54 40 MG Micafungin Sodium 100 mg/Sodium Chloride 100 ml @ 100 mls/hr DAILY IV 09/03/24 10:00 09/12/24 09:58 100 MLS/HR Enteral Nutritional Formula 1,000 ml 40ML/HR GT 09/04/24 08:30 Pantoprazole Sodium 40 mg DAILY IV 09/04/24 10:00 09/12/24 09:54 40 MG Enoxaparin Sodium 40 mg DAILY SC 09/04/24 10:00 09/12/24 09:55 40 MG Budesonide 0.5 mg BID NEB 09/04/24 10:00 09/12/24 18:26 0.5 MG Insulin Glargine 15 units DAILY@1000 SC 09/07/24 10:00 09/12/24 10:01 15 UNITS Dexmedetomidine HCl 400 mcg/ Dextrose 100 ml @ 7.135 mls/ hr Q14H1M IV 09/08/24 11:00 09/12/24 09:43 17.838 MLS/HR Acetaminophen 650 mg Q6HP PRN PO 09/09/24 10:45 09/11/24 13:04 650 MG Diagnostic Test (Pha) 1 strip Q6HR 09/10/24 12:00 09/13/24 05:21 1 STRIP Insulin Human Regular Q6HR SC 09/10/24 12:00 09/12/24 23:53 2 UNITS Dextrose 50 ml UD PRN IV 09/10/24 08:15 Azithromycin 250 ml @ 125 mls/hr DAILY IV 09/12/24 10:00 09/12/24 09:54 125 MLS/HR Quetiapine Fumarate 100 mg BID PO 09/11/24 22:00 09/12/24 22:39 100 MG Potassium Chloride 100 ml @ 50 mls/hr Q2H IV 09/13/24 09:00 09/13/24 14:59 Vancomycin HCl 250 ml @ 200 mls/hr Q12H IV 09/13/24 20:00 Laboratory Results Laboratory Tests 09/13/24 03:07 Chemistry Test 09/13/24 03:07 Albumin 3.8 g/dL (3.2-4.8) Calcium Level 9.8 mg/dL (8.7-10.4) Magnesium Level 2.0 mg/dL (1.6-2.6) Total Protein 6.7 g/dL (5.7-8.2) LFT Test 09/13/24 03:07 Alanine Aminotransferase (ALT) 23 U/L (7-40) Alkaline Phosphatase 86 U/L (46-116) Aspartate Amino Transferase (AST) 29 U/L (13-40) Total Bilirubin 0.8 mg/dL (0.2-1.0) Blood Gas Results Test 09/13/24 06:53 Arterial Blood pH 7.426 (7.350-7.450) FiO2 % 65.0 Microbiology Microbiology Date/Time Source Procedure Growth Status 09/12/24 04:15 Blood Blood Culture - Preliminary Resulted 09/11/24 14:11 Sputum Gram Stain - Final Resulted 09/11/24 14:11 Sputum Respiratory Culture - Preliminary Resulted 09/11/24 00:00 Voided Urine Urine Culture - Preliminary Resulted 09/06/24 01:50 Nose MRSA Screen - Final Complete Labs and/or images reviewed: Labs reviewed by me, Image(s) reviewed by me Assessment/Plan Assessment/Plan Impression: -acute hypoxic and hypercarbic respiratory failure with failure of noninvasive positive pressure ventilation -community-acquired pneumonia, probable Gram-positive/Gram-negative etiology -morbid obesity -nicotine dependence -sepsis -history of schizophrenia -NSTEMI type 2 Plan: Events: Failed SBT yesterday. Repeat today. Blood culture gm + cocci. -continue regular insulin sliding scale, Lantus 15 units daily -pulmonology consultation: Continue recommendations -continue antibiotic therapy with vancomycin, Zosyn, micafungin -Solu-Medrol to 40 mg daily -burrell cultures: No growth at this time -continue DVT prophylaxis -PUD prophylaxis -continue bronchodilators, add Pulmicort, add Mucomyst Patient repeat labs, chest x-ray, ABG in a.m. Critical care time spent with patient discussing and formulating plan of care: 40 minutes. This does not include time spent performing procedures. This medical document was created using an electronic medical record system with [employer] dictation system. Although this document has been carefully reviewed, there may still be some phonetic and typographical errors. These areas are purely typographical due to imperfections of the software programs, and do not reflect any compromise in the patient's medical care. Plan discussed with: Patient, Other (RN) My Orders Orders - ZUHAIR GUILLORY NP Procedure Category Date Status Time Potassium Chl PHA 09/13/24 In Process 20meq/100ml 09:00 Basic Metabolic Panel LAB 09/14/24 Verified 05:00 Basic Metabolic Panel LAB 09/15/24 Verified 05:00 Basic Metabolic Panel LAB 09/16/24 Verified 05:00 Basic Metabolic Panel LAB 09/17/24 Verified 05:00 Complete Blood Count LAB 09/14/24 Verified 05:00 Complete Blood Count LAB 09/15/24 Verified 05:00 Complete Blood Count LAB 09/16/24 Verified 05:00 Complete Blood Count LAB 09/17/24 Verified 05:00 Date of Service: Sep 13, 2024 Billing Provider: ZUHAIR GUILLORY NP Common Visit Codes: [id number] CARE 30-74 MIN ZUHAIR GUILLORY NP Sep 13, 2024 09:30
[2024-09-13] MEDS: POTASSIUM CHL 20MEQ/100ML 100 ML IV SCH (09:54)
[2024-09-13] MEDS: IPRATROPIUM BROM 0.5 MG/2.5ML INH SOL NEB SCH (13:11)
[2024-09-13] MEDS: LEVALBUTEROL HCL 1.25 MG/3 ML NEB NEB SCH (13:11)
[2024-09-13 15:01] LABS: Base Excess -2.6 mmol/L (-2.0-3.0)
[2024-09-13] MEDS: VANCOMYCIN 1.25GM/250ML 250 ML IV SCH (21:40)
[2024-09-13] MEDS: OLANZapine 5 MG TAB PO SCH (22:09)
--- NOTE | 2024-09-13 22:55 | DVHPN2 ---
Progress Note - Dictate Date Seen: Sep 13, 2024 Medical Necessity Reason Pt with a Central, PICC or Fol: Yes The following are medically ne: Teague Catheter Reason for teague catheter: Strict I&O Subjective Patient seen and examined at bedside. Sedated, intubated on mechanical ventilator. Overnight events reviewed. vital signs Vital Sign Date Time Temp Pulse Resp B/P (MAP) Pulse Ox O2 Delivery O2 Flow Rate FiO2 09/13/24 21:58 94 20 109/69 (82) 96 40 09/13/24 18:00 99.9 99.9 09/13/24 17:43 Mechanical Ventilator+ Total Intake and Output 09/12/24 09/12/24 09/13/24 15:00 23:00 07:00 Intake Total 796.704 ml 642.338 ml 742.635 ml Output Total 1200 ml 750 ml Balance 796.704 ml -557.662 ml -7.365 ml medications Current Medications Medications Dose Ordered Sig/Felicitas Route Start Time Stop Time Status Last Admin Dose Admin Ondansetron HCl 4 mg Q4HP PRN IV 09/01/24 10:30 Nitroglycerin 0.4 mg Q5MINP PRN SL 09/01/24 10:30 Fentanyl Citrate 250 ml @ 2.5 mls/hr Q24H IV 09/01/24 13:30 09/13/24 18:29 20 MLS/HR Midazolam HCl 50 ml @ 1 mls/hr Q24H IV 09/01/24 14:00 09/13/24 03:44 10 MLS/HR Vancomycin HCl 0 ml @ 0 mls/hr UD IV 09/01/24 15:45 Piperacillin Sod/ Tazobactam Sod 100 ml @ 25 mls/hr Q6HR IV 09/01/24 18:00 UNV Piperacillin Sod/ Tazobactam Sod 100 ml @ 25 mls/hr Q6H IV 09/01/24 22:00 09/13/24 16:00 25 MLS/HR Propofol 100 ml @ 4.5 mls/hr [id number] IV 09/02/24 13:00 09/13/24 17:50 4.5 MLS/HR Norepinephrine Bitartrate 250 ml @ 3.75 mls/hr Q24H IV 09/02/24 13:00 09/11/24 05:37 18.75 MLS/HR Furosemide 40 mg DAILY IV 09/03/24 10:00 09/13/24 09:54 40 MG Micafungin Sodium 100 mg/Sodium Chloride 100 ml @ 100 mls/hr DAILY IV 09/03/24 10:00 09/13/24 10:00 100 MLS/HR Enteral Nutritional Formula 1,000 ml 40ML/HR GT 09/04/24 08:30 Pantoprazole Sodium 40 mg DAILY IV 09/04/24 10:00 09/13/24 09:53 40 MG Enoxaparin Sodium 40 mg DAILY SC 09/04/24 10:00 09/13/24 09:54 40 MG Budesonide 0.5 mg BID NEB 09/04/24 10:00 09/13/24 21:55 0.5 MG Insulin Glargine 15 units DAILY@1000 SC 09/07/24 10:00 09/13/24 10:00 15 UNITS Dexmedetomidine HCl 400 mcg/ Dextrose 100 ml @ 7.135 mls/ hr Q14H1M IV 09/08/24 11:00 09/13/24 15:23 24.973 MLS/HR Acetaminophen 650 mg Q6HP PRN PO 09/09/24 10:45 09/11/24 13:04 650 MG Diagnostic Test (Pha) 1 strip Q6HR 09/10/24 12:00 09/13/24 17:06 1 STRIP Insulin Human Regular Q6HR SC 09/10/24 12:00 09/13/24 17:43 3 UNITS Dextrose 50 ml UD PRN IV 09/10/24 08:15 Azithromycin 250 ml @ 125 mls/hr DAILY IV 09/12/24 10:00 09/13/24 09:53 125 MLS/HR Vancomycin HCl 250 ml @ 200 mls/hr Q12H IV 09/13/24 20:00 09/13/24 21:40 200 MLS/HR Ipratropium [place] 0.5 mg Q6HR NEB 09/13/24 12:00 09/13/24 19:10 0.5 MG Levalbuterol HCl 1.25 mg Q6HR NEB 09/13/24 12:00 09/13/24 19:10 1.25 MG Olanzapine 15 mg BID PO 09/13/24 22:00 09/13/24 22:09 15 MG Risperidone 2 mg DAILY PO 09/14/24 10:00 objective Gen.: Patient lying in bed in medical ICU. Sedated, intubated on mechanical ventilator. Head: Normocephalic, atraumatic. Eyes: PERRLA. Ears: Normal external anatomy. Throat: Endotracheal tube and orogastric tube in place. Neck: Supple, trachea midline. Chest: Transmitted breath sounds bilaterally. Decreased air entry bilaterally. No wheezing. Bibasilar crackles. Cardiovascular: Positive S1, positive S2. Regular rate and rhythm. Abdomen: Positive bowel sounds in all 4 quadrants. Soft, nontender, nondistended. : Teague in place. Normal external genitalia. Rectal: Deferred. Skin: Warm, dry. Intact. Extremities: 2+ radial pulses bilaterally. No lower extremity edema. Neuro: Sedated. laboratory and microbiology Laboratory Tests 09/13/24 03:07 Test 09/13/24 03:07 Range/Units Serum Glucose 131 #H 74-106 mg/dL Assessment/Plan Impression: Acute hypoxic respiratory failure Acute hypercarbic respiratory failure On mechanical ventilator Pleural effusions Atelectasis Morbid obesity with a BMI of 44.8 Pulmonary edema Acute exacerbation of COPD vs Asthma Elevated troponin Events: Remains on vent support On assist control with respiratory rate of 20, tidal volume 600, PEEP of 8, FiO2 at 30%. Taper FiO2 as tolerated Improved FiO2 requirements Pt tolerated CPAP for 5 hours. Continue Seroquel to 100 mg every 12 hours. Off steroids On Propofol, Fentanyl and Versed. Precedex drip for agitation Continue antibiotics Continue bronchodilators Off pressors, hemodynamically stable. ABG reviewed, compensated CXR reviewed, demonstrates devices in place. Congestion. Left basilar subsegmental atelectasis. Tube feeds for nutritional support Monitor WBC Diurese w/ Lasix as tolerated Monitor renal function Monitor electrolytes. Supplement as necessary. SBT/LAINE. Labs and imaging reviewed. Rest of plan as noted below. Plan: s/p intubation on mechanical ventilator COVID, influenza negative. On assist control with respiratory rate of 20, tidal volume 600, PEEP of 8, FiO2 at 30%. Titrate FIO2 to keep O2 saturation between 88-94%. VAP bundle Daily ABG and CXR while intubated. Sedate for ventilatory synchrony Bronchodilators Steroids - completed Pressors if necessary for hemodynamic support. Titrate to keep MAP above 65 mmHg/SBP above 90 mmHg. F/u Echo to evaluate LVEF, RVSP and r/o valvular dysfunction. F/u Cardiology recommendations Plan for CTA of chest to r/o PE. Antibiotics. Zosyn/Vancomycin F/u cultures. Monitor renal function due to Acute kidney injury. Monitor electrolytes. Supplement as necessary. Nutritional support. Accu-Cheks, ISS. Morbid obesity, complicates all care. Diet and lifestyle modifications for weight reduction recommended. GI/DVT prophylaxis. Condition: Critical Prognosis: Poor given multiple comorbidities. Rest of plan per hospitalist and other consultants. A total of 35 minutes of critical care time was spent reviewing the patient record, examining the patient, making a diagnostic and therapeutic plan, discussing this plan with the medical personnel, following up on diagnostic studies and following the patient for clinical stability excluding any and all procedures. At least 50% of this time was spent in direct, [id number] contact. Thank you ANAHI Montoya for allowing me to participate in this patient's care. Further recommendations will depend on patient's clinical course. Please do not hesitate to contact me if you have any questions or concerns. This medical document was created using an electronic medical record system with [employer] dictation system. Although this document has been carefully reviewed, there may still be some phonetic and typographical errors. These areas are purely typographical due to imperfections of the software programs, and do not reflect any compromise in the patient's medical care. Dietary Evaluation Review Recommendations by RD: Increase Calorie Intake Comments: 1. Increase TF as tolerated to goal rate to 50 mL/hr.Goal rate will provide ~ 87 daily estimated energy needs and ~60% daily estimated protein needs. 2. Advance to [facility] 60g diet pending BALLET MASTER/MISTRESS approval when medically feasible. 3. Continue to monitor patient's weight and labs. Expected Outcomes/Goals: 1. labs to improve 2. diet to advance 3. continue plan of care 4. f/u in 2-3 days Plan discussed with: Other (FERNANDO Parsons) Critical Care Time(min): 35 LIZ GUDINO MD Sep 13, 2024 22:55
[2024-09-14] VITALS (106 sets, daily range): BP systolic 85–153; BP diastolic 48–100; PULSE 80–137; RESP 14–27; TEMP 99.3–102.2; O2SAT 87–97
[2024-09-14 04:33] LABS: Hematocrit 49.5 % (41.0-53.0); Hemoglobin 16.7 g/dL (13.5-17.5); Mean Corpuscular Hemoglobin 31.1 pg (28.0-32.0); Mean Corpuscular Hgb Conc. 33.8 g/dL (32.0-36.0); Platelet Count (auto) 159 10^3/uL (140-450); Red Blood Cells 5.38 10^6/uL (4.5-5.90); Red Cell Distribution Width 14.2 % (11.8-14.3); White Blood Cell 27.2 10^3/uL (4.4-10.8)
[2024-09-14 04:34] LABS: Chloride 106 mmol/L (98-107); Potassium 3.8 mmol/L (3.5-5.1); Sodium 139 mmol/L (136-145)
[2024-09-14 04:35] LABS: Anion Gap 10 (5-15); Calcium 9.7 mg/dL (8.7-10.4); Carbon Dioxide 23 mmol/L (20-31)
[2024-09-14 04:37] LABS: Basophils % (manual) 0 (0.0-2.0); Blast Cells 0; Metamyelocytes % 0; Myelocytes % 0; Promyelocytes % 0; Reactive Lymphocytes 0
[2024-09-14 04:54] LABS: Blood Urea Nitrogen 36 mg/dL (9-23); Glucose 170 mg/dL (74-106)
--- NOTE | 2024-09-14 08:29 | DVHPN2 ---
Subjective Intubated and chemically sedated. Reviewed: Care Plan, H&P, Labs, Medications, Previous Orders, Radiology, Other (Consultants) Changes from previous H/P or p: No Changes General: Per HPI Objective Vitals Vital Signs Date Time Temp Pulse Resp B/P (MAP) Pulse Ox O2 Delivery O2 Flow Rate FiO2 09/14/24 08:15 98 20 105/69 (81) 90 09/14/24 06:12 30 09/14/24 06:00 Mechanical Ventilator+ 09/14/24 04:00 99.3 99.3 Intake/Output Intake and Output 09/14/24 07:00 Intake Total 1610.200 ml Output Total 2040 ml Balance -429.800 ml Intake Oral 30 ml IV Total 1524.200 ml Tube Feeding 56 ml Output Urine Total 2040 ml General Appearance: Alert, Oriented X3, Other (intubated and sedated ) HEENT: Atraumatic, Other (Pinpoint pupils) Lungs: Clear to auscultation, Other (On the vent) Cardiovascular: Regular rate Abdomen: Normal bowel sounds, Soft Musculoskeletal: Weak motor strength RUE, Weak motor strength LUE, Weak motor strength RLE, Weak motor strength LLE Extremities: Other (1+ bilateral lower extremities edema) Skin: Dry, Intact Psych/Mental Status: Other (intubated and sedated ) Medications Current Medications Medications Dose Ordered Sig/Felicitas Route Start Time Stop Time Status Last Admin Dose Admin Ondansetron HCl 4 mg Q4HP PRN IV 09/01/24 10:30 Nitroglycerin 0.4 mg Q5MINP PRN SL 09/01/24 10:30 Fentanyl Citrate 250 ml @ 2.5 mls/hr Q24H IV 09/01/24 13:30 09/13/24 18:29 20 MLS/HR Midazolam HCl 50 ml @ 1 mls/hr Q24H IV 09/01/24 14:00 09/13/24 03:44 10 MLS/HR Vancomycin HCl 0 ml @ 0 mls/hr UD IV 09/01/24 15:45 Piperacillin Sod/ Tazobactam Sod 100 ml @ 25 mls/hr Q6HR IV 09/01/24 18:00 UNV Piperacillin Sod/ Tazobactam Sod 100 ml @ 25 mls/hr Q6H IV 09/01/24 22:00 09/14/24 04:55 25 MLS/HR Propofol 100 ml @ 4.5 mls/hr [id number] IV 09/02/24 13:00 09/14/24 02:44 9 MLS/HR Norepinephrine Bitartrate 250 ml @ 3.75 mls/hr Q24H IV 09/02/24 13:00 09/11/24 05:37 18.75 MLS/HR Furosemide 40 mg DAILY IV 09/03/24 10:00 09/13/24 09:54 40 MG Micafungin Sodium 100 mg/Sodium Chloride 100 ml @ 100 mls/hr DAILY IV 09/03/24 10:00 09/13/24 10:00 100 MLS/HR Enteral Nutritional Formula 1,000 ml 40ML/HR GT 09/04/24 08:30 Pantoprazole Sodium 40 mg DAILY IV 09/04/24 10:00 09/13/24 09:53 40 MG Enoxaparin Sodium 40 mg DAILY SC 09/04/24 10:00 09/13/24 09:54 40 MG Budesonide 0.5 mg BID NEB 09/04/24 10:00 09/13/24 21:55 0.5 MG Insulin Glargine 15 units DAILY@1000 SC 09/07/24 10:00 09/13/24 10:00 15 UNITS Dexmedetomidine HCl 400 mcg/ Dextrose 100 ml @ 7.135 mls/ hr Q14H1M IV 09/08/24 11:00 09/14/24 07:41 21.405 MLS/HR Acetaminophen 650 mg Q6HP PRN PO 09/09/24 10:45 09/11/24 13:04 650 MG Diagnostic Test (Pha) 1 strip Q6HR 09/10/24 12:00 09/14/24 06:32 1 STRIP Insulin Human Regular Q6HR SC 09/10/24 12:00 09/14/24 06:33 2 UNITS Dextrose 50 ml UD PRN IV 09/10/24 08:15 Azithromycin 250 ml @ 125 mls/hr DAILY IV 09/12/24 10:00 09/13/24 09:53 125 MLS/HR Vancomycin HCl 250 ml @ 200 mls/hr Q12H IV 09/13/24 20:00 09/14/24 08:19 200 MLS/HR Ipratropium [place] 0.5 mg Q6HR NEB 09/13/24 12:00 09/14/24 06:11 0.5 MG Levalbuterol HCl 1.25 mg Q6HR NEB 09/13/24 12:00 09/14/24 06:11 1.25 MG Olanzapine 15 mg BID PO 09/13/24 22:00 09/13/24 22:09 15 MG Risperidone 2 mg DAILY PO 09/14/24 10:00 Laboratory Results Laboratory Tests 09/14/24 03:00 Chemistry Test 09/14/24 03:00 Calcium Level 9.7 mg/dL (8.7-10.4) Blood Gas Results Test 09/13/24 14:38 09/14/24 02:50 Arterial Blood pH 7.380 (7.350-7.450) 7.449 (7.350-7.450) FiO2 % 40.0 30.0 Microbiology Microbiology Date/Time Source Procedure Growth Status 09/12/24 04:15 Blood Blood Culture - Preliminary Resulted 09/11/24 14:11 Sputum Gram Stain - Final Resulted 09/11/24 14:11 Sputum Respiratory Culture - Preliminary Resulted 09/11/24 00:00 Voided Urine Urine Culture - Final Complete 09/06/24 01:50 Nose MRSA Screen - Final Complete Labs and/or images reviewed: Labs reviewed by me, Image(s) reviewed by me Assessment/Plan Assessment/Plan Impression: -acute hypoxic and hypercarbic respiratory failure with failure of noninvasive positive pressure ventilation -community-acquired pneumonia, probable Gram-positive/Gram-negative etiology -morbid obesity -nicotine dependence -sepsis -history of schizophrenia -NSTEMI type 2 Plan: Events: Failed CPAP trial yesterday. Repeat CPAP trial today. Restarted Zyprexa and risperidone. Patient assessed to be without any signs psychosis with sedation other than Precedex off -continue regular insulin sliding scale, Lantus 15 units daily -pulmonology consultation: Continue recommendations -continue antibiotic therapy with vancomycin, Zosyn, micafungin -Solu-Medrol to 40 mg daily -burrell cultures: No growth at this time -continue DVT prophylaxis -PUD prophylaxis -continue bronchodilators, add Pulmicort, add Mucomyst Patient repeat labs, chest x-ray, ABG in a.m. Critical care time spent with patient discussing and formulating plan of care: 40 minutes. This does not include time spent performing procedures. This medical document was created using an electronic medical record system with [employer] computerized dictation system. Although this document has been carefully reviewed, there may still be some phonetic and typographical errors. These areas are purely typographical due to imperfections of the software programs, and do not reflect any compromise in the patient's medical care. Plan discussed with: Patient, Other (RN) My Orders Orders - ZUHAIR GUILLORY NP Procedure Category Date Status Time Basic Metabolic Panel LAB 09/15/24 Verified 05:00 Basic Metabolic Panel LAB 09/16/24 Verified 05:00 Basic Metabolic Panel LAB 09/17/24 Verified 05:00 Complete Blood Count LAB 09/14/24 In Process 05:00 Complete Blood Count LAB 09/15/24 Verified 05:00 Complete Blood Count LAB 09/16/24 Verified 05:00 Complete Blood Count LAB 09/17/24 Verified 05:00 Cpap Trial For Am ORDERS 09/13/24 Transmitted 09:40 Ipratropium Medneb PHA 09/13/24 In Process (Atrovent Medneb) 12:00 Levalbuterol Hcl PHA 09/13/24 In Process (Xopenex Medneb) 12:00 Olanzapine Tablet PHA 09/13/24 In Process (Zyprexa Tablet) 22:00 Risperidone Tablet PHA 09/14/24 In Process (Risperdal Tablet) 10:00 Abg W/ Co-Ox RT 09/13/24 Logged 14:30 Abg W/ Co-Ox RT 09/14/24 Logged 02:44 Manual Differential LAB 09/14/24 In Process 03:00 Date of Service: Sep 14, 2024 Billing Provider: ZUHAIR GUILLORY NP Common Visit Codes: [id number] CARE 30-74 MIN ZUHAIR GUILLORY NP Sep 14, 2024 08:29
--- NOTE | 2024-09-14 08:34 | DVH ---
CLINICAL INFORMATION: 38 years old, Male; intubated. TECHNIQUE: Single AP portable chest radiograph was obtained. COMPARISON: XY CHEST PORTABLE on DOS: 09/13/24, XY CHEST PORTABLE on DOS: 09/12/24, XY CHEST PORTABLE on DOS: 09/11/24 FINDINGS: Stable satisfactory positioning of the endotracheal tube. Enteric tube is obscured distally due to ov erlying soft tissue density and portable AP technique, appears to reach the stomach. Stable satisfact ory positioning of the right internal jugular central venous catheter. Bilateral airspace opacities a nd interstitial opacities appear unchanged. There is a small right pleural effusion with overlying at electasis and consolidation. Right pleural effusion appears increased. IMPRESSION: 1. Satisfactory positioning of the endotracheal tube and right internal jugular central venous cathet er. Enteric tube is poorly visualized distally, although appears to reach the stomach. 2. Small right pleural effusion appears increased compared to the prior exam, with overlying atelecta sis and consolidation. Possible small left pleural effusion. 3. Bilateral airspace opacities and interstitial opacities are otherwise stable.
[2024-09-14 08:41] LABS: Band Neutrophils % (manual) 7; Eosinophils % (manual) 1 (0-7); Lymphocytes % (manual) 11 (10.0-50.0); Monocytes % (manual) 4 (0-12); Platelet Estimate Adequate
[2024-09-14] MEDS: risperiDONE 1 MG TAB PO SCH (10:05)
[2024-09-14] MEDS: OLANZapine 5 MG TAB PO ONE (10:08)
--- NOTE | 2024-09-14 12:59 | MEDREC ---
[facility] ASP Intervention Section I [facility] ASP Intervention: Review courses of therapy (14 DAYS ON ZOSYN, 14 DAYS ON VANCOMYCIN, 12 DAYS ON MYCAMINE, 4 DAYS ON ZITHROMAX - PERSISTENT LEUKOCYTOSIS - PLEASE CONSIDER ID [email or web address]) MARY CARMEN PHARMACIST Sep 14, 2024 12:59
[2024-09-14] MEDS: GLYCOPYRROLATE 0.2 MG/ML 1ML VIAL IV ONE (20:33)
--- NOTE | 2024-09-14 21:01 | DVHPN2 ---
Progress Note - Dictate Date Seen: Sep 14, 2024 Medical Necessity Reason Pt with a Central, PICC or Fol: Yes The following are medically ne: Teague Catheter Reason for teague catheter: Strict I&O Subjective Patient seen and examined at bedside. Sedated, intubated on mechanical ventilator. Overnight events reviewed. vital signs Vital Sign Date Time Temp Pulse Resp B/P (MAP) Pulse Ox O2 Delivery O2 Flow Rate FiO2 09/14/24 19:45 88 20 103/63 (76) 94 09/14/24 18:45 30 09/14/24 18:45 Mechanical Ventilator 09/14/24 17:02 100.6 Total Intake and Output 09/13/24 09/13/24 09/14/24 15:00 23:00 07:00 Intake Total 334.108 ml 581.931 ml 715.561 ml Output Total 1100 ml 940 ml Balance 334.108 ml -518.069 ml -224.439 ml medications Current Medications Medications Dose Ordered Sig/Felicitas Route Start Time Stop Time Status Last Admin Dose Admin Ondansetron HCl 4 mg Q4HP PRN IV 09/01/24 10:30 Nitroglycerin 0.4 mg Q5MINP PRN SL 09/01/24 10:30 Fentanyl Citrate 250 ml @ 2.5 mls/hr Q24H IV 09/01/24 13:30 09/14/24 17:15 5 MLS/HR Midazolam HCl 50 ml @ 1 mls/hr Q24H IV 09/01/24 14:00 09/13/24 03:44 10 MLS/HR Vancomycin HCl 0 ml @ 0 mls/hr UD IV 09/01/24 15:45 Piperacillin Sod/ Tazobactam Sod 100 ml @ 25 mls/hr Q6HR IV 09/01/24 18:00 UNV Piperacillin Sod/ Tazobactam Sod 100 ml @ 25 mls/hr Q6H IV 09/01/24 22:00 09/14/24 17:08 25 MLS/HR Propofol 100 ml @ 4.5 mls/hr [id number] IV 09/02/24 13:00 09/14/24 02:44 9 MLS/HR Norepinephrine Bitartrate 250 ml @ 3.75 mls/hr Q24H IV 09/02/24 13:00 09/11/24 05:37 18.75 MLS/HR Furosemide 40 mg DAILY IV 09/03/24 10:00 09/14/24 10:03 40 MG Micafungin Sodium 100 mg/Sodium Chloride 100 ml @ 100 mls/hr DAILY IV 09/03/24 10:00 09/14/24 10:04 100 MLS/HR Enteral Nutritional Formula 1,000 ml 40ML/HR GT 09/04/24 08:30 Pantoprazole Sodium 40 mg DAILY IV 09/04/24 10:00 09/14/24 10:04 40 MG Enoxaparin Sodium 40 mg DAILY SC 09/04/24 10:00 09/13/24 09:54 40 MG Budesonide 0.5 mg BID NEB 09/04/24 10:00 09/14/24 19:11 0.5 MG Insulin Glargine 15 units DAILY@1000 SC 09/07/24 10:00 09/14/24 10:48 15 UNITS Dexmedetomidine HCl 400 mcg/ Dextrose 100 ml @ 7.135 mls/ hr Q14H1M IV 09/08/24 11:00 09/14/24 12:09 24.973 MLS/HR Acetaminophen 650 mg Q6HP PRN PO 09/09/24 10:45 09/14/24 12:22 650 MG Diagnostic Test (Pha) 1 strip Q6HR 09/10/24 12:00 09/14/24 18:11 1 STRIP Insulin Human Regular Q6HR SC 09/10/24 12:00 09/14/24 18:17 2 UNITS Dextrose 50 ml UD PRN IV 09/10/24 08:15 Azithromycin 250 ml @ 125 mls/hr DAILY IV 09/12/24 10:00 09/14/24 10:04 125 MLS/HR Vancomycin HCl 250 ml @ 200 mls/hr Q12H IV 09/13/24 20:00 09/14/24 08:19 200 MLS/HR Ipratropium [place] 0.5 mg Q6HR NEB 09/13/24 12:00 09/14/24 18:45 0.5 MG Levalbuterol HCl 1.25 mg Q6HR NEB 09/13/24 12:00 09/14/24 18:47 1.25 MG Olanzapine 15 mg BID PO 09/13/24 22:00 09/14/24 10:07 15 MG Risperidone 2 mg DAILY PO 09/14/24 10:00 09/14/24 10:05 2 MG objective Gen.: Patient lying in bed in medical ICU. Sedated, intubated on mechanical ventilator. Head: Normocephalic, atraumatic. Eyes: PERRLA. Ears: Normal external anatomy. Throat: Endotracheal tube and orogastric tube in place. Neck: Supple, trachea midline. Chest: Transmitted breath sounds bilaterally. Decreased air entry bilaterally. No wheezing. Bibasilar crackles. Cardiovascular: Positive S1, positive S2. Regular rate and rhythm. Abdomen: Positive bowel sounds in all 4 quadrants. Soft, nontender, nondistended. : Teague in place. Normal external genitalia. Rectal: Deferred. Skin: Warm, dry. Intact. Extremities: 2+ radial pulses bilaterally. No lower extremity edema. Neuro: Sedated. laboratory and microbiology Laboratory Tests 09/14/24 03:00 Test 09/14/24 03:00 Range/Units Serum Glucose 170 H 74-106 mg/dL Assessment/Plan Impression: Acute hypoxic respiratory failure Acute hypercarbic respiratory failure On mechanical ventilator Pleural effusions Atelectasis Morbid obesity with a BMI of 44.8 Pulmonary edema Acute exacerbation of COPD vs Asthma Elevated troponin Events: Remains on vent support On assist control with respiratory rate of 20, tidal volume 600, PEEP of 6, FiO2 at 30%. Taper FiO2 as tolerated Patient did not tolerate CPAP, became agitated On Propofol, Fentanyl for sedation. Off pressors, hemodynamically stable. Off steroids Continue antibiotics Continue bronchodilators Increased ET tube secretions - Obtain consent for therapeutic bronchoscopy ABG reviewed, compensated CXR reviewed, demonstrates devices in place. Small right pleural effusion, appears increased compared to prior, with overlying atelectasis and consolidation. Possible small left pleural effusion. Stable bilateral airspace opacities and interstitial opacities. Tube feeds for nutritional support Monitor WBC Diurese w/ Lasix as tolerated Monitor renal function Monitor electrolytes. Supplement as necessary. SBT/LAINE. Labs and imaging reviewed. Rest of plan as noted below. Plan: s/p intubation on mechanical ventilator COVID, influenza negative. On assist control with respiratory rate of 20, tidal volume 600, PEEP of 6, FiO2 at 30%. Titrate FIO2 to keep O2 saturation between 88-94%. VAP bundle Daily ABG and CXR while intubated. Sedate for ventilatory synchrony Bronchodilators Steroids - completed Pressors if necessary for hemodynamic support. Titrate to keep MAP above 65 mmHg/SBP above 90 mmHg. F/u Echo to evaluate LVEF, RVSP and r/o valvular dysfunction. F/u Cardiology recommendations Plan for CTA of chest to r/o PE. Antibiotics. Zosyn/Vancomycin F/u cultures. Monitor renal function due to Acute kidney injury. Monitor electrolytes. Supplement as necessary. Nutritional support. Accu-Cheks, ISS. Morbid obesity, complicates all care. Diet and lifestyle modifications for weight reduction recommended. GI/DVT prophylaxis. Condition: Critical Prognosis: Poor given multiple comorbidities. Rest of plan per hospitalist and other consultants. A total of 35 minutes of critical care time was spent reviewing the patient record, examining the patient, making a diagnostic and therapeutic plan, discussing this plan with the medical personnel, following up on diagnostic studies and following the patient for clinical stability excluding any and all procedures. At least 50% of this time was spent in direct, [id number] contact. Thank you ANAHI Montoya for allowing me to participate in this patient's care. Further recommendations will depend on patient's clinical course. Please do not hesitate to contact me if you have any questions or concerns. This medical document was created using an electronic medical record system with [employer] dictation system. Although this document has been carefully reviewed, there may still be some phonetic and typographical errors. These areas are purely typographical due to imperfections of the software programs, and do not reflect any compromise in the patient's medical care. Dietary Evaluation Review Recommendations by RD: Increase Calorie Intake Comments: 1. Increase TF as tolerated to goal rate to 50 mL/hr.Goal rate will provide ~ 87 daily estimated energy needs and ~60% daily estimated protein needs. 2. [facility] pending [facility] approval when medically feasible. 3. Continue to monitor patient's weight and labs. Expected Outcomes/Goals: 1. labs to improve 2. diet to advance 3. continue plan of care 4. f/u in 2-3 days Plan discussed with: Other (FERNANDO Arce) Critical Care Time(min): 35 LIZ GUDINO MD Sep 14, 2024 21:01
[2024-09-15] VITALS (107 sets, daily range): BP systolic 89–148; BP diastolic 49–110; PULSE 78–153; RESP 15–40; TEMP 98.4–100.7; O2SAT 91–100
[2024-09-15] MEDS: VANCOMYCIN 1.25GM/250ML 250 ML IV SCH (02:31)
[2024-09-15 03:40] LABS: Anion Gap 9 (5-15); Calcium 9.6 mg/dL (8.7-10.4); Carbon Dioxide 24 mmol/L (20-31); Sodium 140 mmol/L (136-145)
[2024-09-15 03:46] LABS: BUN/Creatinine Ratio 27.6 (10.0-20.0)
[2024-09-15 03:47] LABS: Hematocrit 45.5 % (41.0-53.0); Hemoglobin 15.3 g/dL (13.5-17.5); Mean Corpuscular Hgb Conc. 33.5 g/dL (32.0-36.0); Mean Corpuscular Volume 92.4 fL (80.0-100.0); Platelet Count (auto) 142 10^3/uL (140-450); Red Blood Cells 4.93 10^6/uL (4.5-5.90); White Blood Cell 26.6 10^3/uL (4.4-10.8)
[2024-09-15 03:57] LABS: Blood Urea Nitrogen 27 mg/dL (9-23); Chloride 107 mmol/L (98-107); Glucose 138 mg/dL (74-106); Potassium 3.4 mmol/L (3.5-5.1)
[2024-09-15 04:04] LABS: Basophils % (manual) 0 (0.0-2.0); Blast Cells 0; Eosinophils % (manual) 0 (0-7); Metamyelocytes % 0; Myelocytes % 0; Promyelocytes % 0; Reactive Lymphocytes 0
--- NOTE | 2024-09-15 04:47 | DVH ---
CHEST RADIOGRAPH Indication: Intubated Technique: Single frontal view of the chest was obtained COMPARISON: XY CHEST PORTABLE on DOS: 09/14/24, XY CHEST PORTABLE on DOS: 09/13/24, XY CHEST PORTABLE on DOS: 09/12/24, XY CHEST PORTABLE on DOS: 09/11/24, XY CHEST PORTABLE on DOS: 09/10/24 FINDINGS: Lines and Tubes: Endotracheal tube, enteric catheter and right central venous catheter in satisfactor y position. Lungs: Multifocal airspace disease, increased Pleura: No effusion. No pneumothorax. Cardiomediastinal contours: Unremarkable Bones: Unremarkable IMPRESSION: Lines and tubes in satisfactory position. Multifocal airspace disease, unchanged.
[2024-09-15 06:57] LABS: Band Neutrophils % (manual) 3; Lymphocytes % (manual) 11 (10.0-50.0); Monocytes % (manual) 6 (0-12); Platelet Estimate Adequate
[2024-09-15 08:27] LABS: Base Excess -1.7 mmol/L (-2.0-3.0)
--- NOTE | 2024-09-15 09:00 | DVHPN2 ---
Subjective Intubated and chemically sedated. Reviewed: Care Plan, H&P, Labs, Medications, Previous Orders, Radiology, Other (Consultants) Changes from previous H/P or p: No Changes General: Per HPI Objective Vitals Vital Signs Date Time Temp Pulse Resp B/P (MAP) Pulse Ox O2 Delivery O2 Flow Rate FiO2 09/15/24 06:30 91 20 98/54 (69) 95 09/15/24 06:00 30 09/15/24 06:00 Mechanical Ventilator+ 09/15/24 03:45 99.4 99.4 Intake/Output Intake and Output 09/15/24 07:00 Intake Total 2467.348 ml Output Total 2000 ml Balance 467.348 ml Intake Oral 80 ml IV Total 2347.348 ml Tube Feeding 40 ml Output Urine Total 2000 ml # Bowel Movements 1 General Appearance: Alert, Oriented X3, Other (intubated and sedated ) HEENT: Atraumatic, Other (Pinpoint pupils) Lungs: Clear to auscultation, Other (On the vent) Cardiovascular: Regular rate, Normal S1, Normal S2 Abdomen: Normal bowel sounds, Soft Musculoskeletal: Weak motor strength RUE, Weak motor strength LUE, Weak motor strength RLE, Weak motor strength LLE Extremities: Other (1+ bilateral lower extremities edema) Skin: Dry, Intact Psych/Mental Status: Other (intubated and sedated ) Medications Current Medications Medications Dose Ordered Sig/Felicitas Route Start Time Stop Time Status Last Admin Dose Admin Ondansetron HCl 4 mg Q4HP PRN IV 09/01/24 10:30 Nitroglycerin 0.4 mg Q5MINP PRN SL 09/01/24 10:30 Fentanyl Citrate 250 ml @ 2.5 mls/hr Q24H IV 09/01/24 13:30 09/14/24 17:15 5 MLS/HR Midazolam HCl 50 ml @ 1 mls/hr Q24H IV 09/01/24 14:00 09/13/24 03:44 10 MLS/HR Vancomycin HCl 0 ml @ 0 mls/hr UD IV 09/01/24 15:45 Piperacillin Sod/ Tazobactam Sod 100 ml @ 25 mls/hr Q6HR IV 09/01/24 18:00 UNV Piperacillin Sod/ Tazobactam Sod 100 ml @ 25 mls/hr Q6H IV 09/01/24 22:00 09/15/24 03:31 25 MLS/HR Propofol 100 ml @ 4.5 mls/hr [id number] IV 09/02/24 13:00 09/15/24 00:14 13.5 MLS/HR Norepinephrine Bitartrate 250 ml @ 3.75 mls/hr Q24H IV 09/02/24 13:00 09/11/24 05:37 18.75 MLS/HR Furosemide 40 mg DAILY IV 09/03/24 10:00 09/14/24 10:03 40 MG Micafungin Sodium 100 mg/Sodium Chloride 100 ml @ 100 mls/hr DAILY IV 09/03/24 10:00 09/14/24 10:04 100 MLS/HR Enteral Nutritional Formula 1,000 ml 40ML/HR GT 09/04/24 08:30 Pantoprazole Sodium 40 mg DAILY IV 09/04/24 10:00 09/14/24 10:04 40 MG Enoxaparin Sodium 40 mg DAILY SC 09/04/24 10:00 09/13/24 09:54 40 MG Budesonide 0.5 mg BID NEB 09/04/24 10:00 09/14/24 19:11 0.5 MG Insulin Glargine 15 units DAILY@1000 SC 09/07/24 10:00 09/14/24 10:48 15 UNITS Dexmedetomidine HCl 400 mcg/ Dextrose 100 ml @ 7.135 mls/ hr Q14H1M IV 09/08/24 11:00 09/15/24 06:16 10.703 MLS/HR Acetaminophen 650 mg Q6HP PRN PO 09/09/24 10:45 09/14/24 20:33 650 MG Diagnostic Test (Pha) 1 strip Q6HR 09/10/24 12:00 09/15/24 06:00 1 STRIP Insulin Human Regular Q6HR SC 09/10/24 12:00 09/14/24 18:17 2 UNITS Dextrose 50 ml UD PRN IV 09/10/24 08:15 Azithromycin 250 ml @ 125 mls/hr DAILY IV 09/12/24 10:00 09/14/24 10:04 125 MLS/HR Ipratropium [place] 0.5 mg Q6HR NEB 09/13/24 12:00 09/15/24 06:14 0.5 MG Levalbuterol HCl 1.25 mg Q6HR NEB 09/13/24 12:00 09/15/24 06:13 1.25 MG Olanzapine 15 mg BID PO 09/13/24 22:00 09/14/24 22:07 15 MG Risperidone 2 mg DAILY PO 09/14/24 10:00 09/14/24 10:05 2 MG Vancomycin HCl 250 ml @ 200 mls/hr Q6H IV 09/15/24 02:00 09/15/24 02:31 200 MLS/HR Potassium Chloride 100 ml @ 50 mls/hr Q2H IV 09/15/24 08:15 09/15/24 12:14 Laboratory Results Laboratory Tests 09/15/24 03:01 Chemistry Test 09/15/24 03:01 Calcium Level 9.6 mg/dL (8.7-10.4) Blood Gas Results Test 09/15/24 07:47 Arterial Blood pH 7.444 (7.350-7.450) FiO2 % 30.0 Microbiology Microbiology Date/Time Source Procedure Growth Status 09/12/24 04:15 Blood Blood Culture - Preliminary Resulted 09/11/24 14:11 Sputum Gram Stain - Final Complete 09/11/24 14:11 Sputum Respiratory Culture - Final Complete 09/11/24 00:00 Voided Urine Urine Culture - Final Complete 09/06/24 01:50 Nose MRSA Screen - Final Complete Labs and/or images reviewed: Labs reviewed by me, Image(s) reviewed by me Assessment/Plan Assessment/Plan Impression: -acute hypoxic and hypercarbic respiratory failure with failure of noninvasive positive pressure ventilation -community-acquired pneumonia, probable Gram-positive/Gram-negative etiology -morbid obesity -nicotine dependence -sepsis -history of schizophrenia -NSTEMI type 2 Plan: Events: Failed Cpap trial yesterday. Patient with improved FiO2 requirements, SpO2 at 96% on 30%. Repeat spontaneous breathing trial today. Potassium replacement -continue regular insulin sliding scale, Lantus 15 units daily -pulmonology consultation: Continue recommendations -continue antibiotic therapy with vancomycin, Zosyn, micafungin -Solu-Medrol to 40 mg daily -burrell cultures: No growth at this time -continue DVT prophylaxis -PUD prophylaxis -continue bronchodilators, add Pulmicort, add Mucomyst Patient repeat labs, chest x-ray, ABG in a.m. Critical care time spent with patient discussing and formulating plan of care: 40 minutes. This does not include time spent performing procedures. This medical document was created using an electronic medical record system with [employer] dictation system. Although this document has been carefully reviewed, there may still be some phonetic and typographical errors. These areas are purely typographical due to imperfections of the software programs, and do not reflect any compromise in the patient's medical care. Plan discussed with: Patient, Other (RN) My Orders Orders - ZUHAIR GUILLORY NP Procedure Category Date Status Time Potassium Chl PHA 09/15/24 In Process 20meq/100ml 08:15 Date of Service: Sep 15, 2024 Billing Provider: ZUHAIR GUILLORY NP Common Visit Codes: [id number] CARE 30-74 MIN ZUHAIR GUILLORY NP Sep 15, 2024 09:00
[2024-09-15] MEDS: POTASSIUM CHL 20MEQ/100ML 100 ML IV SCH (09:12)
[2024-09-15] MEDS: FUROSEMIDE 20 MG/2 ML VIAL IV ONE (16:15)
--- NOTE | 2024-09-15 16:43 | DVH ---
XY CHEST PORTABLE, HISTORY: EXTUBATED COMPARISON: XY CHEST PORTABLE on DOS: 09/15/24, XY CHEST PORTABLE on DOS: 09/14/24, XY CHEST PORTABLE on DOS: 09/13/24 XY CHEST PORTABLE on DOS: 09/15/24, XY CHEST PORTABLE on DOS: 09/14/24, XY CHEST PORTABLE on DOS: 09/13/24 TECHNICAL DATA: 1 view of the chest was obtained. FINDINGS: Lines and tubes: A CVC is seen. Cardiomediastinal silhouette: Indistinct. Pulmonary vasculature: Prominent Lung expansion: Low. Lung airspace: Patchy perihilar airspace opacities. Lung interstitium: normal Pleura: Small bilateral pleural effusion. Pneumothorax: no Bones: Unremarkable Other: no IMPRESSION: Patchy perihilar airspace opacities could be pulmonary edema.
[2024-09-15] MEDS: FUROSEMIDE 20 MG/2 ML VIAL ONE (16:45)
[2024-09-15] MEDS: POTASSIUM CHL 20MEQ/100ML 100 ML IV ONE (16:58)
[2024-09-15 17:07] LABS: Base Excess -0.4 mmol/L (-2.0-3.0)
[2024-09-15 18:00] LABS: Base Excess -4.4 mmol/L (-2.0-3.0)
[2024-09-15] MEDS: VANCOMYCIN 1GM/250ML KIT 250 ML IV SCH (20:27)
[2024-09-15] MEDS: LORazepam 2MG/ML-1ML VIAL IV PRN (20:27)
--- NOTE | 2024-09-15 21:25 | DVHPN2 ---
Progress Note - Dictate Date Seen: Sep 15, 2024 Medical Necessity Reason Pt with a Central, PICC or Fol: Yes The following are medically ne: Teague Catheter Reason for teague catheter: Strict I&O Subjective Patient seen and examined at bedside. S/p extubation, currently on BiPAP Overnight events reviewed. vital signs Vital Sign Date Time Temp Pulse Resp B/P (MAP) Pulse Ox O2 Delivery O2 Flow Rate FiO2 09/15/24 19:45 110 36 126/87 (100) 96 09/15/24 18:30 55.0 40 09/15/24 18:00 Hi-Flow NC Non-Rebreather 09/15/24 16:00 99.4 99.4 Total Intake and Output 09/14/24 09/14/24 09/15/24 15:00 23:00 07:00 Intake Total 869.998 ml 747.95 ml 868.035 ml Output Total 1250 ml 750 ml Balance 869.998 ml -502.05 ml 118.035 ml medications Current Medications Medications Dose Ordered Sig/Felicitas Route Start Time Stop Time Status Last Admin Dose Admin Ondansetron HCl 4 mg Q4HP PRN IV 09/01/24 10:30 Nitroglycerin 0.4 mg Q5MINP PRN SL 09/01/24 10:30 Fentanyl Citrate 250 ml @ 2.5 mls/hr Q24H IV 09/01/24 13:30 09/14/24 17:15 5 MLS/HR Midazolam HCl 50 ml @ 1 mls/hr Q24H IV 09/01/24 14:00 09/13/24 03:44 10 MLS/HR Vancomycin HCl 0 ml @ 0 mls/hr UD IV 09/01/24 15:45 Piperacillin Sod/ Tazobactam Sod 100 ml @ 25 mls/hr Q6HR IV 09/01/24 18:00 UNV Piperacillin Sod/ Tazobactam Sod 100 ml @ 25 mls/hr Q6H IV 09/01/24 22:00 09/15/24 15:36 25 MLS/HR Propofol 100 ml @ 4.5 mls/hr [id number] IV 09/02/24 13:00 09/15/24 00:14 13.5 MLS/HR Norepinephrine Bitartrate 250 ml @ 3.75 mls/hr Q24H IV 09/02/24 13:00 09/11/24 05:37 18.75 MLS/HR Furosemide 40 mg DAILY IV 09/03/24 10:00 09/15/24 09:18 40 MG Micafungin Sodium 100 mg/Sodium Chloride 100 ml @ 100 mls/hr DAILY IV 09/03/24 10:00 09/15/24 10:00 100 MLS/HR Enteral Nutritional Formula 1,000 ml 40ML/HR GT 09/04/24 08:30 Pantoprazole Sodium 40 mg DAILY IV 09/04/24 10:00 09/15/24 09:17 40 MG Enoxaparin Sodium 40 mg DAILY SC 09/04/24 10:00 09/15/24 09:18 40 MG Budesonide 0.5 mg BID NEB 09/04/24 10:00 09/15/24 18:30 0.5 MG Insulin Glargine 15 units DAILY@1000 SC 09/07/24 10:00 09/15/24 10:00 15 UNITS Dexmedetomidine HCl 400 mcg/ Dextrose 100 ml @ 7.135 mls/ hr Q14H1M IV 09/08/24 11:00 09/15/24 15:55 7.135 MLS/HR Acetaminophen 650 mg Q6HP PRN PO 09/09/24 10:45 09/14/24 20:33 650 MG Diagnostic Test (Pha) 1 strip Q6HR 09/10/24 12:00 09/15/24 18:19 1 STRIP Insulin Human Regular Q6HR SC 09/10/24 12:00 09/15/24 18:16 2 UNITS Dextrose 50 ml UD PRN IV 09/10/24 08:15 Azithromycin 250 ml @ 125 mls/hr DAILY IV 09/12/24 10:00 09/14/24 10:04 125 MLS/HR Ipratropium [place] 0.5 mg Q6HR NEB 09/13/24 12:00 09/15/24 18:30 0.5 MG Levalbuterol HCl 1.25 mg Q6HR NEB 09/13/24 12:00 09/15/24 18:30 1.25 MG Olanzapine 15 mg BID PO 09/13/24 22:00 09/15/24 09:17 15 MG Risperidone 2 mg DAILY PO 09/14/24 10:00 09/15/24 09:17 2 MG Lorazepam 0.5 mg Q8HP PRN IV 09/15/24 13:15 09/15/24 20:27 0.5 MG Vancomycin HCl 250 ml @ 250 mls/hr Q8H IV 09/15/24 20:00 09/15/24 20:27 250 MLS/HR objective Gen.: Patient lying in bed in no apparent distress. On BiPAP. Head: Normocephalic, atraumatic. Eyes: EOMI/PERRLA. Ears: Normal hearing. Normal anatomy. Neck/trachea: Trachea midline, supple. Nose: Normal external anatomy. Mouth: Moist mucous membranes. Chest: Decreased air entry bilaterally. No wheezing or rhonchi. Cardiovascular: Positive S1, positive S2. Regular rate and rhythm. Abdomen: Positive bowel sounds in all 4 quadrants. Soft, non-tender, non- distended. : Deferred. Rectal: Deferred. Skin: Warm, dry. Intact. Extremities: 2+ radial pulses bilaterally. No lower extremity edema. Neuro: Awake, alert, oriented x3. No gross motor or sensory deficits. Cranial nerves II through XII intact. Gait not assessed. laboratory and microbiology Laboratory Tests 09/15/24 17:12 09/15/24 03:01 Test 09/15/24 03:01 Range/Units Serum Glucose 138 H 74-106 mg/dL Assessment/Plan Impression: Acute hypoxic respiratory failure Acute hypercarbic respiratory failure On mechanical ventilator Pleural effusions Atelectasis Morbid obesity with a BMI of 44.8 Pulmonary edema Acute exacerbation of COPD vs Asthma Elevated troponin Events: Patient tolerated CPAP, was extubated uneventfully This PM, tachycardic, tachypneic. Currently on BiPAP - will transition to high flow O2 Positive GPC in blood cultures Follow up ID and sensitivities. Continue antibiotics - Vancomycin, Zosyn Continue bronchodilators Lasix 20 mg IVP x1 given. Monitor renal function Monitor electrolytes. Supplement as necessary. Potassium supplementation Tube feeds for nutritional support Monitor WBC Labs and imaging reviewed. Rest of plan as noted below. Plan: s/p extubation On BiPAP - will transition to high flow O2 Off sedation Off pressors, hemodynamically stable. Bronchodilators Steroids - completed Pressors if necessary for hemodynamic support. Titrate to keep MAP above 65 mmHg/SBP above 90 mmHg. F/u Echo to evaluate LVEF, RVSP and r/o valvular dysfunction. F/u Cardiology recommendations Plan for CTA of chest to r/o PE. Antibiotics. Zosyn/Vancomycin F/u cultures. Maintain euvolemia Monitor renal function due to Acute kidney injury. Monitor electrolytes. Supplement as necessary. Nutritional support. Accu-Cheks, ISS. Morbid obesity, complicates all care. Diet and lifestyle modifications for weight reduction recommended. GI/DVT prophylaxis. Condition: Critical Prognosis: Poor given multiple comorbidities. Rest of plan per hospitalist and other consultants. A total of 35 minutes of critical care time was spent reviewing the patient record, examining the patient, making a diagnostic and therapeutic plan, discussing this plan with the medical personnel, following up on diagnostic studies and following the patient for clinical stability excluding any and all procedures. At least 50% of this time was spent in direct, [id number] contact. Thank you ANAHI Montoya for allowing me to participate in this patient's care. Further recommendations will depend on patient's clinical course. Please do not hesitate to contact me if you have any questions or concerns. This medical document was created using an electronic medical record system with [employer] dictation system. Although this document has been carefully reviewed, there may still be some phonetic and typographical errors. These areas are purely typographical due to imperfections of the software programs, and do not reflect any compromise in the patient's medical care. Dietary Evaluation Review Recommendations by RD: Increase Calorie Intake Comments: 1. Increase TF as tolerated to goal rate to 50 mL/hr.Goal rate will provide ~ 87 daily estimated energy needs and ~60% daily estimated protein needs. 2. Advance to CCHO 60g diet pending [employer] approval when medically feasible. 3. Continue to monitor patient's weight and labs. Expected Outcomes/Goals: 1. labs to improve 2. diet to advance 3. continue plan of care 4. f/u in 2-3 days Plan discussed with: Other (FERNANDO Livingston) Critical Care Time(min): 35 LIZ GUDINO MD Sep 15, 2024 21:25
[2024-09-16] VITALS (107 sets, daily range): BP systolic 79–142; BP diastolic 42–95; PULSE 95–152; RESP 13–39; TEMP 98.3–101.2; O2SAT 24–99
[2024-09-16 03:41] LABS: Hematocrit 45.3 % (41.0-53.0); Hemoglobin 14.9 g/dL (13.5-17.5); Mean Corpuscular Hemoglobin 30.6 pg (28.0-32.0); Mean Corpuscular Hgb Conc. 32.8 g/dL (32.0-36.0); Mean Corpuscular Volume 93.1 fL (80.0-100.0); Platelet Count (auto) 192 10^3/uL (140-450); Red Blood Cells 4.86 10^6/uL (4.5-5.90); Red Cell Distribution Width 14.5 % (11.8-14.3); White Blood Cell 25.3 10^3/uL (4.4-10.8)
[2024-09-16 03:42] LABS: Band Neutrophils % (manual) 0; Basophils % (manual) 0 (0.0-2.0); Blast Cells 0; Eosinophils % (manual) 0 (0-7); Metamyelocytes % 0; Myelocytes % 0; Promyelocytes % 0; Reactive Lymphocytes 0
[2024-09-16 04:04] LABS: Potassium 3.7 mmol/L (3.5-5.1); Sodium 143 mmol/L (136-145)
[2024-09-16 04:05] LABS: Anion Gap 9 (5-15); Carbon Dioxide 25 mmol/L (20-31)
[2024-09-16 04:10] LABS: BUN/Creatinine Ratio 22.1 (10.0-20.0); Blood Urea Nitrogen 21 mg/dL (9-23)
[2024-09-16 04:18] LABS: Chloride 109 mmol/L (98-107); Glucose 149 mg/dL (74-106)
[2024-09-16 05:17] LABS: Lymphocytes % (manual) 6 (10.0-50.0); Monocytes % (manual) 6 (0-12); Platelet Estimate Adequate
--- NOTE | 2024-09-16 07:03 | DVH ---
CHEST RADIOGRAPH Indication: resp failure aspiration Technique: Single frontal view of the chest was obtained Comparison: XY CHEST PORTABLE on DOS: 09/15/24 FINDINGS: Lines and Tubes: There is a right central venous catheter with the tips terminating in the right atri um. Lungs: Patchy bilateral opacities. Pleura: No effusion. No pneumothorax. Cardiomediastinal contours: Unremarkable Bones: No acute osseous abnormality. IMPRESSION: 1. Patchy bilateral opacities similar to the prior study.
[2024-09-16] MEDS: ETOMIDATE (2MG/ML) 20ML VIAL IV ONE ×2 (07:51→08:57)
[2024-09-16] MEDS: ROCURONIUM 10MG/ML 10ML VIAL IV ONE ×2 (07:51→08:57)
[2024-09-16] MEDS: MIDAZOLAM DRIP 50 mg/50mL 50 ML IV ONE (07:52)
[2024-09-16] MEDS: NOREPINEPHRINE 8 MG/250ML KIT 250 ML IV ONE (07:53)
[2024-09-16] MEDS: fentaNYL Drip 2500mCg/250mlNS 250 ML IV ONE (07:53)
--- NOTE | 2024-09-16 08:10 | DVHPN2 ---
Subjective Intubated and chemically sedated. Reviewed: Care Plan, H&P, Labs, Medications, Previous Orders, Radiology, Other (Consultants) Changes from previous H/P or p: No Changes General: Per HPI Objective Vitals Vital Signs Date Time Temp Pulse Resp B/P (MAP) Pulse Ox O2 Delivery O2 Flow Rate FiO2 09/16/24 06:26 116/70 09/16/24 06:15 99 32 90 09/16/24 06:00 98.3 98.3 09/16/24 06:00 Hi-Flow NC 60 50 Non-Rebreather 50 Intake/Output Intake and Output 09/16/24 07:00 Intake Total 1608.487 ml Output Total 2475 ml Balance -866.513 ml Intake Oral 30 ml IV Total 1578.487 ml Output Urine Total 2475 ml # Bowel Movements 2 General Appearance: Alert, mild distress, Other (intubated and sedated ) HEENT: Atraumatic, Other (Pinpoint pupils) Lungs: Clear to auscultation, Other (On the vent) Cardiovascular: Regular rate, Normal S1, Normal S2 Abdomen: Normal bowel sounds, Soft Musculoskeletal: Weak motor strength RUE, Weak motor strength LUE, Weak motor strength RLE, Weak motor strength LLE Extremities: Other (1+ bilateral lower extremities edema) Skin: Dry, Intact Psych/Mental Status: Other (intubated and sedated ) Medications Current Medications Medications Dose Ordered Sig/Felicitas Route Start Time Stop Time Status Last Admin Dose Admin Ondansetron HCl 4 mg Q4HP PRN IV 09/01/24 10:30 Nitroglycerin 0.4 mg Q5MINP PRN SL 09/01/24 10:30 Fentanyl Citrate 250 ml @ 2.5 mls/hr Q24H IV 09/01/24 13:30 09/14/24 17:15 5 MLS/HR Midazolam HCl 50 ml @ 1 mls/hr Q24H IV 09/01/24 14:00 09/13/24 03:44 10 MLS/HR Vancomycin HCl 0 ml @ 0 mls/hr UD IV 09/01/24 15:45 Piperacillin Sod/ Tazobactam Sod 100 ml @ 25 mls/hr Q6HR IV 09/01/24 18:00 UNV Piperacillin Sod/ Tazobactam Sod 100 ml @ 25 mls/hr Q6H IV 09/01/24 22:00 09/16/24 04:52 25 MLS/HR Propofol 100 ml @ 4.5 mls/hr [id number] IV 09/02/24 13:00 09/15/24 00:14 13.5 MLS/HR Norepinephrine Bitartrate 250 ml @ 3.75 mls/hr Q24H IV 09/02/24 13:00 09/11/24 05:37 18.75 MLS/HR Furosemide 40 mg DAILY IV 09/03/24 10:00 09/15/24 09:18 40 MG Micafungin Sodium 100 mg/Sodium Chloride 100 ml @ 100 mls/hr DAILY IV 09/03/24 10:00 09/15/24 10:00 100 MLS/HR Enteral Nutritional Formula 1,000 ml 40ML/HR GT 09/04/24 08:30 Pantoprazole Sodium 40 mg DAILY IV 09/04/24 10:00 09/15/24 09:17 40 MG Enoxaparin Sodium 40 mg DAILY SC 09/04/24 10:00 09/15/24 09:18 40 MG Budesonide 0.5 mg BID NEB 09/04/24 10:00 09/15/24 18:30 0.5 MG Insulin Glargine 15 units DAILY@1000 SC 09/07/24 10:00 09/15/24 10:00 15 UNITS Dexmedetomidine HCl 400 mcg/ Dextrose 100 ml @ 7.135 mls/ hr Q14H1M IV 09/08/24 11:00 09/16/24 04:50 10.703 MLS/HR Acetaminophen 650 mg Q6HP PRN PO 09/09/24 10:45 09/14/24 20:33 650 MG Diagnostic Test (Pha) 1 strip Q6HR 09/10/24 12:00 09/16/24 05:58 1 STRIP Insulin Human Regular Q6HR SC 09/10/24 12:00 09/16/24 06:03 3 UNITS Dextrose 50 ml UD PRN IV 09/10/24 08:15 Azithromycin 250 ml @ 125 mls/hr DAILY IV 09/12/24 10:00 09/14/24 10:04 125 MLS/HR Ipratropium [place] 0.5 mg Q6HR NEB 09/13/24 12:00 09/16/24 00:10 0.5 MG Levalbuterol HCl 1.25 mg Q6HR NEB 09/13/24 12:00 09/16/24 00:10 1.25 MG Olanzapine 15 mg BID PO 09/13/24 22:00 09/15/24 22:00 15 MG Risperidone 2 mg DAILY PO 09/14/24 10:00 09/15/24 09:17 2 MG Lorazepam 0.5 mg Q8HP PRN IV 09/15/24 13:15 09/15/24 20:27 0.5 MG Vancomycin HCl 250 ml @ 250 mls/hr Q8H IV 09/15/24 20:00 09/16/24 04:43 250 MLS/HR Laboratory Results Laboratory Tests 09/16/24 03:20 Chemistry Test 09/16/24 03:20 Calcium Level 10.0 mg/dL (8.7-10.4) Blood Gas Results Test 09/15/24 10:24 09/15/24 17:54 09/16/24 07:04 Arterial Blood pH 7.454 (7.350-7.450) 7.380 (7.350-7.450) 7.375 (7.350-7.450) FiO2 % 30.0 40.0 60.0 Microbiology Microbiology Date/Time Source Procedure Growth Status 09/14/24 09:33 Sputum Gram Stain - Final Resulted 09/14/24 09:33 Sputum Respiratory Culture - Preliminary Resulted 09/12/24 04:15 Blood Blood Culture - Preliminary Resulted 09/11/24 00:00 Voided Urine Urine Culture - Final Complete 09/06/24 01:50 Nose MRSA Screen - Final Complete Labs and/or images reviewed: Labs reviewed by me, Image(s) reviewed by me Assessment/Plan Assessment/Plan Impression: -acute hypoxic and hypercarbic respiratory failure with failure of noninvasive positive pressure ventilation -community-acquired pneumonia, probable Gram-positive/Gram-negative etiology -morbid obesity -nicotine dependence -sepsis -history of schizophrenia -NSTEMI type 2 Plan: Events: Patient extubated yesterday. Today, found to be tachypneic, tachycardic, hypoxic with respiratory failure. Patient placed on BiPAP. On 100% FiO2 saturations remained to be approximately 90%. High probability patient will be reintubated this a.m.. -continue regular insulin sliding scale, Lantus 15 units daily -pulmonology consultation: Continue recommendations -continue antibiotic therapy with vancomycin, Zosyn, micafungin -Solu-Medrol to 40 mg daily -burrell cultures: No growth at this time -continue DVT prophylaxis -PUD prophylaxis -continue bronchodilators, add Pulmicort, add Mucomyst Patient repeat labs, chest x-ray, ABG in a.m. Critical care time spent with patient discussing and formulating plan of care: 40 minutes. This does not include time spent performing procedures. This medical document was created using an electronic medical record system with [employer] dictation system. Although this document has been carefully reviewed, there may still be some phonetic and typographical errors. These areas are purely typographical due to imperfections of the software programs, and do not reflect any compromise in the patient's medical care. Plan discussed with: Patient, Other (RN) My Orders Orders - ZUHAIR GUILLORY NP Procedure Category Date Status Time Lorazepam 2mg/Ml Inj PHA 09/15/24 In Process (Ativan Inj) 13:15 Electrocardigram EKG 09/15/24 Logged 15:20 BIPAP RT 09/15/24 Logged 15:30 Abg W/ Co-Ox RT 09/15/24 Logged 16:20 Abg W/ Co-Ox RT 09/16/24 Logged 07:08 Date of Service: Sep 16, 2024 Billing Provider: ZUHAIR GUILLORY NP Common Visit Codes: [id number] CARE 30-74 MIN ZUHAIR GUILLORY NP Sep 16, 2024 08:10
[2024-09-16] MEDS: NOREPINEPHRINE 8 MG/250ML KIT 250 ML IV SCH (08:57)
[2024-09-16] MEDS: fentaNYL Drip 2500mCg/250mlNS 250 ML IV SCH (08:58)
[2024-09-16] MEDS: PROPOFOL 100 ML IV SCH (08:58)
[2024-09-16] MEDS: MIDAZOLAM DRIP 50 mg/50mL 50 ML IV SCH (08:59)
--- NOTE | 2024-09-16 09:14 | DVH ---
CHEST RADIOGRAPH Indication: INTUBATION Technique: Single frontal view of the chest was obtained Comparison: XY CHEST PORTABLE on DOS: 09/16/24, XY CHEST PORTABLE on DOS: 09/15/24, XY CHEST PORTABLE on DOS: 09/15/24, XY CHEST PORTABLE on DOS: 09/14/24, XY CHEST PORTABLE on DOS: 09/13/24, XY CHEST PORTABLE on DOS: 09/16/24 FINDINGS: Lines and Tubes: There is a right central venous catheter with the tips terminating in the right atri um. Lungs: Patchy bilateral opacities. Pleura: No effusion. No pneumothorax. Cardiomediastinal contours: Unremarkable Bones: No acute osseous abnormality. IMPRESSION: 1. Patchy bilateral opacities similar to the prior study.
--- NOTE | 2024-09-16 09:36 | DVHNC2 ---
Intubation Indication: Respiratory Insufficiency, Airway Protection Prep: Preoxygenation Pretreated with: Analgesia Medicated with: Vecuronium Intubation size: cm (8.0) Informed consent obtained: Yes Risks/benefits/alt described: Yes Notes [place] scope use. Attempts x1. Secured at 24 cm at the lip. Patient was found to have copious tracheal secretions, locke in color. Also noted to have thrush. Date of Service: Sep 16, 2024 Billing Provider: ZUHAIR GUILLORY NP Common Visit Codes: PROCEDURE ONLY Procedure Codes: [id number] ZUHAIR GUILLORY NP Sep 16, 2024 09:36
[2024-09-16] MEDS: ACETYLCYSTEINE 10 %(100MG/ML) SOL 4ML NEB SCH (10:00)
--- NOTE | 2024-09-16 10:30 | ECG ---
[facility] Test Date: 2024-09-16 Test Time: 03:24:21 Pat Name: MAGGIE MOFFETT Department: Room: [address] [place] [address] A Gender: M [employer]ess: : 1985 Requested By: ZUHAIR GUILLORY Order Number: [id number] Reading MD: Komal Barron Measurements Intervals [place] Rate: 156 P: 56 AL: 130 QRS: 97 QRSD: 74 T: 59 QT: 326 QTc: 525 Interpretive Statements Sinus tachycardia Rightward axis Electronically Signed On 09-20-2024 8:25:24 PST by Komal Barron Please click the below link to view image of tracing.
[2024-09-16] MEDS: NYSTATIN (MOUTH-THROAT) 500,000 UNITS/5 ML SUSP MT SCH (10:48)
[2024-09-16 11:24] LABS: Base Excess -2.5 mmol/L (-2.0-3.0)
[2024-09-16] MEDS: MEROPENEM 1GM IVPB 50 ML IV SCH (13:07)
--- NOTE | 2024-09-16 15:44 | DVH ---
CHEST RADIOGRAPH Indication: S/P BRONCHOSCOPY Technique: Single frontal view of the chest was obtained Comparison: XY CHEST PORTABLE on DOS: 09/16/24, XY CHEST PORTABLE on DOS: 09/16/24, XY CHEST PORTABLE on DOS: 09/15/24 FINDINGS: Lines and Tubes: Right IJ approach central venous catheter terminating over the proximal right atrium . Endotracheal tube is in satisfactory position. The distal end of the enteric tube is not well-visua lized. Lungs: Bronchovascular crowding due to low lung volume. Opacification of bilateral lower lung zones No pneumothorax. Cardiomediastinal contours: Unremarkable Bones: No acute osseous abnormality. IMPRESSION: Right IJ approach central venous catheter and endotracheal tube are in satisfactory position. The distal end of the enteric tube is not well-visualized. If there is clinical concern for enteric t ube position, abdominal radiograph should be considered for further evaluation. Opacification of bilateral lower lung zones ; slightly improved from prior imaging.
--- NOTE | 2024-09-16 15:56 | DVH ---
BLADDER ULTRASOUND CLINICAL HISTORY: check teague is in bladder TECHNIQUE: Multiple transabdominal ultrasound images of the bladder were obtained. COMPARISON: None FINDINGS: There is a Teague catheter seen within the bladder which is decompressed and not adequately evaluated. IMPRESSION: 1. Teague catheter in the bladder which is decompressed and not adequately evaluated. HS:Y
--- NOTE | 2024-09-16 16:12 | DVHNC2 ---
Procedure - Bronchoscopy procedure note: Indications: Increased ET tube secretions, Possible mucous plugging. Medicines: See [facility] notes. Complications: None Procedure: Patient medications and allergies reviewed. The risks and benefits of the procedure and the sedation options and risk were discussed with the patient's healthcare proxy. All questions were answered and informed consent was obtained. Patient identification and proposed procedure were verified prior to the procedure by the physician, and a nurse, and the respiratory therapist in ICU room. The heart rate, respiratory rate, oxygen saturations, blood pressure, adequacy of pulmonary ventilation, and response to care were monitored throughout the procedure. The physical status of the patient was reassessed after the procedure. After obtaining informed consent, the bronchoscope was introduced through the endotracheal tube and advanced into the trachea bronchial tree of both lungs. The procedure was accomplished without difficulty. The patient tolerated the procedure well. Findings: The trachea is in normal caliber. The alf is sharp. The tracheobronchial tree of the right lung was examined to at least the first subsegmental level. The bronchial mucosa and anatomy in the right lung are normal. There are no endobronchial lesions. There was copious whitish secretions from right main stem bronchus onward throughout R1-R3 and R6-R10. Right middle lobe (RML) Bronchoalveolar lavage (BAL) obtained. RML BAL sent for gram stain and culture. The left upper lobe, lingula, and left lower lobe were examined to at least the first subsegmental level. Bronchial mucosa and anatomy in the left upper lobe and lingula are normal. There were no endobronchial lesions. There was copious whitish secretions from left main stem bronchus onward throughout L1-L4. Mucous plugging removed from L1-L4. There was no active bleeding at the completion of the procedure. Estimated blood loss: Less than 5 mL. Impression: Left and right upper lobe atelectasis due to mucous plugging Right lower lobe atelectasis Mucous plugging from L1-L4 and R1-R3 and R6-R10 RML BAL performed Recommendation: Follow-up RML BAL results. Procedure codes: 80907, bronchoscopy, rigid and flexible, including fluoroscopic guidance, one performed; with bronchial endobronchial removal of mucous plugging, single or multiple sites LIZ GUDINO MD Sep 16, 2024 16:12
--- NOTE | 2024-09-16 18:14 | DVH ---
CHEST RADIOGRAPH Indication: NGT PLACEMENT Technique: Single frontal view of the chest was obtained Comparison: XY CHEST PORTABLE on DOS: 09/16/24, XY CHEST PORTABLE on DOS: 09/16/24, XY CHEST PORTABLE on DOS: 09/16/24 FINDINGS: Lines and Tubes: Enteric tube is noted in satisfactory position. Partially imaged central venous cat heter terminating over the distal SVC. Lungs: Bilateral lower lung zone opacities with obscuration of bilateral hemidiaphragm. No pneumothorax of the visualized lungs. Cardiomediastinal contours: Heart and mediastinum are stable Bones: No acute osseous abnormality. IMPRESSION: Enteric tube is in satisfactory position. Partially visualized central venous catheter terminating o otilio the distal SVC. Unchanged bilateral lower lung zone opacities.
[2024-09-16] MEDS: NOREPINEPHRINE BITARTRATE 32 MG in SODIUM CHL 0.9% 218 ML IV SCH (20:19)
[2024-09-16] MEDS: ACETAMINOPHEN IV 1000 MG/100ML (10MG/ML) IV ONE (21:01)
--- NOTE | 2024-09-16 23:34 | DVHPN2 ---
Progress Note - Dictate Date Seen: Sep 16, 2024 Medical Necessity Reason Pt with a Central, PICC or Fol: Yes The following are medically ne: Teague Catheter Reason for teague catheter: Strict I&O Subjective Patient seen and examined at bedside. Sedated, intubated on mechanical ventilator. Overnight events reviewed. vital signs Vital Sign Date Time Temp Pulse Resp B/P (MAP) Pulse Ox O2 Delivery O2 Flow Rate FiO2 09/16/24 22:15 110 24 102/67 (79) 95 09/16/24 22:10 100 09/16/24 22:00 100.5 100.5 09/16/24 17:30 Mechanical Ventilator+ 09/16/24 06:44 60.0 Total Intake and Output 09/15/24 09/15/24 09/16/24 15:00 23:00 07:00 Intake Total 678.568 ml 501.405 ml 428.514 ml Output Total 1800 ml 675 ml Balance 678.568 ml -1298.595 ml -246.486 ml medications Current Medications Medications Dose Ordered Sig/Felicitas Route Start Time Stop Time Status Last Admin Dose Admin Ondansetron HCl 4 mg Q4HP PRN IV 09/01/24 10:30 Nitroglycerin 0.4 mg Q5MINP PRN SL 09/01/24 10:30 Piperacillin Sod/ Tazobactam Sod 100 ml @ 25 mls/hr Q6HR IV 09/01/24 18:00 UNV Furosemide 40 mg DAILY IV 09/03/24 10:00 09/16/24 09:01 40 MG Enteral Nutritional Formula 1,000 ml 40ML/HR GT 09/04/24 08:30 Pantoprazole Sodium 40 mg DAILY IV 09/04/24 10:00 09/16/24 09:01 40 MG Enoxaparin Sodium 40 mg DAILY SC 09/04/24 10:00 09/16/24 09:02 40 MG Budesonide 0.5 mg BID NEB 09/04/24 10:00 09/16/24 22:27 0.5 MG Insulin Glargine 15 units DAILY@1000 SC 09/07/24 10:00 09/16/24 09:02 15 UNITS Dexmedetomidine HCl 400 mcg/ Dextrose 100 ml @ 7.135 mls/ hr Q14H1M IV 09/08/24 11:00 09/16/24 04:50 10.703 MLS/HR Acetaminophen 650 mg Q6HP PRN PO 09/09/24 10:45 09/16/24 18:24 650 MG Diagnostic Test (Pha) 1 strip Q6HR 09/10/24 12:00 09/16/24 17:22 1 STRIP Insulin Human Regular Q6HR SC 09/10/24 12:00 09/16/24 17:23 2 UNITS Dextrose 50 ml UD PRN IV 09/10/24 08:15 Azithromycin 250 ml @ 125 mls/hr DAILY IV 09/12/24 10:00 09/16/24 09:01 125 MLS/HR Ipratropium [place] 0.5 mg Q6HR NEB 09/13/24 12:00 09/16/24 18:31 0.5 MG Levalbuterol HCl 1.25 mg Q6HR NEB 09/13/24 12:00 09/16/24 18:31 1.25 MG Olanzapine 15 mg BID PO 09/13/24 22:00 09/16/24 21:52 15 MG Risperidone 2 mg DAILY PO 09/14/24 10:00 09/15/24 09:17 2 MG Lorazepam 0.5 mg Q8HP PRN IV 09/15/24 13:15 09/15/24 20:27 0.5 MG Propofol 100 ml @ 3.951 mls/ hr Q24H IV 09/16/24 09:00 09/16/24 22:09 27.657 MLS/HR Midazolam HCl 50 ml @ 1 mls/hr Q24H IV 09/16/24 09:00 09/16/24 21:06 15 MLS/HR Fentanyl Citrate 250 ml @ 2.5 mls/hr Q24H IV 09/16/24 09:00 09/16/24 08:58 2.5 MLS/HR Nystatin 5 ml QID MT 09/16/24 12:00 09/16/24 17:22 5 ML Acetylcysteine 100 mg Q4HR NEB 09/16/24 10:00 09/16/24 18:15 100 MG Meropenem 50 ml @ 17 mls/hr Q8HR IV 09/16/24 14:00 09/16/24 21:52 17 MLS/HR Fluconazole 100 ml @ 100 mls/hr DAILY IV 09/17/24 10:00 Norepinephrine Bitartrate 32 mg/ Sodium Chloride 250 ml @ 0.938 mls/ hr Q24H IV 09/16/24 17:45 09/16/24 20:19 6.563 MLS/HR objective Gen.: Patient lying in bed in medical ICU. Sedated, intubated on mechanical ventilator. Head: Normocephalic, atraumatic. Eyes: PERRLA. Ears: Normal external anatomy. Throat: Endotracheal tube and orogastric tube in place. Neck: Supple, trachea midline. Chest: Transmitted breath sounds bilaterally. Decreased air entry bilaterally. No wheezing. Bibasilar crackles. Cardiovascular: Positive S1, positive S2. Regular rate and rhythm. Abdomen: Positive bowel sounds in all 4 quadrants. Soft, nontender, nondistended. : Teague in place. Normal external genitalia. Rectal: Deferred. Skin: Warm, dry. Intact. Extremities: 2+ radial pulses bilaterally. No lower extremity edema. Neuro: Sedated. laboratory and microbiology Laboratory Tests 09/16/24 03:20 Test 09/16/24 03:20 Range/Units Serum Glucose 149 H 74-106 mg/dL Assessment/Plan Impression: Acute hypoxic respiratory failure Acute hypercarbic respiratory failure On mechanical ventilator Pleural effusions Atelectasis Morbid obesity with a BMI of 44.8 Pulmonary edema Acute exacerbation of COPD vs Asthma Elevated troponin Events: Patient was re-intubated due to AHRF. On AC mode with RR 24, VT 600, PEEP 10, FIO2 100% Increase PEEP to 12. Sedated on Propofol, Versed, Fentanyl. Patient had copious secretions. We performed bronchoscopy w/ bronchoalveolar lavage, removed copious mucous plugs from RUL/RLL + FROYLAN. See separate procedure note for details. Pulmonary toileting Pressors for hemodynamic support. On Levophed 12 mcg/min Titrate to keep MAP above 65 mmHg/SBP above 90 mmHg. Continue antibiotics/antifungals Continue bronchodilators Diurese w/ Lasix as tolerated Monitor renal function Monitor electrolytes. Supplement as necessary. Tube feeds for nutritional support Monitor WBC Labs and imaging reviewed. Rest of plan as noted below. Plan: s/p re-intubation, on mechanical ventilator On AC mode with RR 24, VT 600, PEEP 10 --> 12, FIO2 100% Sedated on Propofol, Versed, Fentanyl. Bronchodilators Steroids - completed Pressors for hemodynamic support. Titrate to keep MAP above 65 mmHg/SBP above 90 mmHg. F/u Echo to evaluate LVEF, RVSP and r/o valvular dysfunction. F/u Cardiology recommendations Plan for CTA of chest to r/o PE. Antibiotics. Zosyn/Vancomycin F/u cultures. Positive GPC in blood cultures - Follow up ID and sensitivities. Maintain euvolemia Monitor renal function due to Acute kidney injury. Monitor electrolytes. Supplement as necessary. Nutritional support. Accu-Cheks, ISS. Morbid obesity, complicates all care. Diet and lifestyle modifications for weight reduction recommended. GI/DVT prophylaxis. Condition: Critical Prognosis: Poor given multiple comorbidities. Rest of plan per hospitalist and other consultants. A total of 35 minutes of critical care time was spent reviewing the patient record, examining the patient, making a diagnostic and therapeutic plan, discussing this plan with the medical personnel, following up on diagnostic studies and following the patient for clinical stability excluding any and all procedures. At least 50% of this time was spent in direct, [id number] contact. Thank you ANAHI Montoya for allowing me to participate in this patient's care. Further recommendations will depend on patient's clinical course. Please do not hesitate to contact me if you have any questions or concerns. This medical document was created using an electronic medical record system with [employer] dictation system. Although this document has been carefully reviewed, there may still be some phonetic and typographical errors. These areas are purely typographical due to imperfections of the software programs, and do not reflect any compromise in the patient's medical care. Dietary Evaluation Review Recommendations by RD: Increase Calorie Intake Comments: 1. Increase TF as tolerated to goal rate to 50 mL/hr.Goal rate will provide ~ 87 daily estimated energy needs and ~60% daily estimated protein needs. 2. Advance to CCHO 60g diet pending [employer] approval when medically feasible. 3. Continue to monitor patient's weight and labs. Expected Outcomes/Goals: 1. labs to improve 2. diet to advance 3. continue plan of care 4. f/u in 2-3 days Plan discussed with: Other (FERNANDO Aaron) Critical Care Time(min): 35 LIZ GUDINO MD Sep 16, 2024 23:34
[2024-09-17] VITALS (109 sets, daily range): BP systolic 90–146; BP diastolic 47–85; PULSE 85–120; RESP 16–26; TEMP 97.7–102; O2SAT 78–100
[2024-09-17 04:37] LABS: Hematocrit 48.1 % (41.0-53.0); Hemoglobin 15.5 g/dL (13.5-17.5); Mean Corpuscular Hgb Conc. 32.2 g/dL (32.0-36.0)
[2024-09-17 04:40] LABS: Mean Corpuscular Hemoglobin 30.8 pg (28.0-32.0); Mean Corpuscular Volume 95.6 fL (80.0-100.0); Platelet Count (auto) 209 10^3/uL (140-450); Red Blood Cells 5.03 10^6/uL (4.5-5.90); Red Cell Distribution Width 14.6 % (11.8-14.3)
[2024-09-17 05:12] LABS: Anion Gap 11 (5-15)
[2024-09-17 05:18] LABS: BUN/Creatinine Ratio 16.1 (10.0-20.0)
[2024-09-17 05:23] LABS: Blood Urea Nitrogen 18 mg/dL (9-23); Carbon Dioxide 22 mmol/L (20-31); Chloride 108 mmol/L (98-107); Glucose 149 mg/dL (74-106); Potassium 4.1 mmol/L (3.5-5.1); Sodium 141 mmol/L (136-145)
[2024-09-17 05:24] LABS: Calcium 10.4 mg/dL (8.7-10.4)
--- NOTE | 2024-09-17 05:33 | DVH ---
CHEST RADIOGRAPH Indication: PROTOCOL Technique: Single frontal view of the chest was obtained COMPARISON: XY CHEST PORTABLE on DOS: 09/16/24, XY CHEST PORTABLE on DOS: 09/16/24, XY CHEST PORTABLE on DOS: 09/16/24, XY CHEST PORTABLE on DOS: 09/16/24, XY CHEST PORTABLE on DOS: 09/15/24 FINDINGS: Lines and Tubes: Right central venous catheter, endotracheal tube and enteric catheter in satisfactor y position. Lungs: Patchy bilateral lower lobe airspace disease. Pleura: No effusion. No pneumothorax. Cardiomediastinal contours: Unremarkable Bones: Unremarkable IMPRESSION: Lines and tubes in satisfactory position. No significant interval change.
[2024-09-17 05:54] LABS: White Blood Cell 31.3 10^3/uL (4.4-10.8)
[2024-09-17 05:55] LABS: Basophils % (manual) 0 (0.0-2.0); Blast Cells 0; Metamyelocytes % 0; Myelocytes % 0; Promyelocytes % 0; Reactive Lymphocytes 0
[2024-09-17 06:26] LABS: Band Neutrophils % (manual) 1; Eosinophils % (manual) 2 (0-7); Lymphocytes % (manual) 6 (10.0-50.0); Monocytes % (manual) 3 (0-12); Smudge Cells 1 /100 WBC
[2024-09-17 06:27] LABS: Platelet Estimate Adequate
[2024-09-17] MEDS: FLUCONAZOLE 200MG/100ML 100 ML IV SCH (08:06)
--- NOTE | 2024-09-17 08:26 | DVHPN2 ---
Subjective Intubated and chemically sedated. Reviewed: Care Plan, H&P, Labs, Medications, Previous Orders, Radiology, Other (Consultants) Changes from previous H/P or p: No Changes General: Per HPI Objective Vitals Vital Signs Date Time Temp Pulse Resp B/P (MAP) Pulse Ox O2 Delivery O2 Flow Rate FiO2 09/17/24 08:06 130/78 09/17/24 07:45 89 09/17/24 07:45 100 09/17/24 07:45 24 100 Mechanical Ventilator+ 09/17/24 07:30 99.7 211.5 09/16/24 06:44 60.0 Intake/Output Intake and Output 09/17/24 07:00 Intake Total 1857.325 ml Output Total 2050 ml Balance -192.675 ml Intake Oral 60 ml IV Total 1797.325 ml Output Urine Total 2050 ml # Bowel Movements 1 General Appearance: moderate distress, Other (intubated and sedated ) HEENT: Atraumatic, Other (Pinpoint pupils) Lungs: Clear to auscultation, Other (On the vent) Cardiovascular: Regular rate, Normal S1, Normal S2 Abdomen: Normal bowel sounds, Soft Musculoskeletal: Weak motor strength RUE, Weak motor strength LUE, Weak motor strength RLE, Weak motor strength LLE Extremities: Other (1+ bilateral lower extremities edema) Skin: Dry, Intact Psych/Mental Status: Other (intubated and sedated ) Medications Current Medications Medications Dose Ordered Sig/Felicitas Route Start Time Stop Time Status Last Admin Dose Admin Ondansetron HCl 4 mg Q4HP PRN IV 09/01/24 10:30 Nitroglycerin 0.4 mg Q5MINP PRN SL 09/01/24 10:30 Piperacillin Sod/ Tazobactam Sod 100 ml @ 25 mls/hr Q6HR IV 09/01/24 18:00 UNV Furosemide 40 mg DAILY IV 09/03/24 10:00 09/17/24 08:06 40 MG Enteral Nutritional Formula 1,000 ml 40ML/HR GT 09/04/24 08:30 Pantoprazole Sodium 40 mg DAILY IV 09/04/24 10:00 09/17/24 08:05 40 MG Enoxaparin Sodium 40 mg DAILY SC 09/04/24 10:00 09/17/24 08:07 40 MG Budesonide 0.5 mg BID NEB 09/04/24 10:00 09/17/24 06:01 0.5 MG Insulin Glargine 15 units DAILY@1000 SC 09/07/24 10:00 09/17/24 08:20 15 UNITS Dexmedetomidine HCl 400 mcg/ Dextrose 100 ml @ 7.135 mls/ hr Q14H1M IV 09/08/24 11:00 09/16/24 04:50 10.703 MLS/HR Acetaminophen 650 mg Q6HP PRN PO 09/09/24 10:45 09/17/24 04:39 650 MG Diagnostic Test (Pha) 1 strip Q6HR 09/10/24 12:00 09/17/24 05:31 1 STRIP Insulin Human Regular Q6HR SC 09/10/24 12:00 09/17/24 05:33 2 UNITS Dextrose 50 ml UD PRN IV 09/10/24 08:15 Azithromycin 250 ml @ 125 mls/hr DAILY IV 09/12/24 10:00 09/17/24 08:18 125 MLS/HR Ipratropium [place] 0.5 mg Q6HR NEB 09/13/24 12:00 09/17/24 06:01 0.5 MG Levalbuterol HCl 1.25 mg Q6HR NEB 09/13/24 12:00 09/17/24 06:01 1.25 MG Olanzapine 15 mg BID PO 09/13/24 22:00 09/17/24 08:07 15 MG Risperidone 2 mg DAILY PO 09/14/24 10:00 09/17/24 08:07 2 MG Lorazepam 0.5 mg Q8HP PRN IV 09/15/24 13:15 09/15/24 20:27 0.5 MG Propofol 100 ml @ 3.951 mls/ hr Q24H IV 09/16/24 09:00 09/17/24 08:05 27.657 MLS/HR Midazolam HCl 50 ml @ 1 mls/hr Q24H IV 09/16/24 09:00 09/17/24 07:28 15 MLS/HR Fentanyl Citrate 250 ml @ 2.5 mls/hr Q24H IV 09/16/24 09:00 09/17/24 02:01 25 MLS/HR Nystatin 5 ml QID MT 09/16/24 12:00 09/17/24 07:31 5 ML Acetylcysteine 100 mg Q4HR NEB 09/16/24 10:00 09/17/24 06:01 100 MG Meropenem 50 ml @ 17 mls/hr Q8HR IV 09/16/24 14:00 09/17/24 05:29 17 MLS/HR Fluconazole 100 ml @ 100 mls/hr DAILY IV 09/17/24 10:00 09/17/24 08:06 100 MLS/HR Norepinephrine Bitartrate 32 mg/ Sodium Chloride 250 ml @ 0.938 mls/ hr Q24H IV 09/16/24 17:45 09/16/24 20:19 6.563 MLS/HR Laboratory Results Laboratory Tests 09/17/24 03:55 Chemistry Test 09/17/24 03:55 Calcium Level 10.4 mg/dL (8.7-10.4) Blood Gas Results Test 09/16/24 10:53 Arterial Blood pH 7.311 (7.350-7.450) FiO2 % 100.0 Microbiology Microbiology Date/Time Source Procedure Growth Status 09/14/24 09:33 Sputum Gram Stain - Final Resulted 09/14/24 09:33 Sputum Respiratory Culture - Preliminary Resulted 09/12/24 04:15 Blood Blood Culture - Preliminary Resulted 09/11/24 00:00 Voided Urine Urine Culture - Final Complete 09/06/24 01:50 Nose MRSA Screen - Final Complete Labs and/or images reviewed: Labs reviewed by me, Image(s) reviewed by me Assessment/Plan Assessment/Plan Impression: -acute hypoxic and hypercarbic respiratory failure with failure of noninvasive positive pressure ventilation -community-acquired pneumonia, probable Gram-positive/Gram-negative etiology -morbid obesity -nicotine dependence -sepsis -history of schizophrenia -NSTEMI type 2 Plan: Events: Patient was reintubated by myself yesterday morning. Patient had copious amounts of thick, cream-colored sputum from trachea. Also noted was oral Rosaura. Post intubation chest x-ray reveals increased bibasilar opacities with probable mucus plugging noted to right lower lobe. Discussion was made with Dr. Chacon yesterday. Patient underwent bronchoscopy yesterday evening. Patient now on 90% FiO2 saturation 99%. -continue regular insulin sliding scale, Lantus 15 units daily -pulmonology consultation: Continue recommendations -Change antibiotic therapy to meropenem, Diflucan -Solu-Medrol to 40 mg daily -burrell cultures: No growth at this time -continue DVT prophylaxis -PUD prophylaxis -continue bronchodilators, Pulmicort, Mucomyst Patient repeat labs, chest x-ray, ABG in a.m. Critical care time spent with patient discussing and formulating plan of care: 40 minutes. This does not include time spent performing procedures. This medical document was created using an electronic medical record system with [employer] dictation system. Although this document has been carefully reviewed, there may still be some phonetic and typographical errors. These areas are purely typographical due to imperfections of the software programs, and do not reflect any compromise in the patient's medical care. Plan discussed with: Patient, Other (RN) My Orders Orders - ZUHAIR GUILLORY NP Procedure Category Date Status Time Chest Portable XY 09/16/24 Resulted 08:43 Propofol (Diprivan) PHA 09/16/24 In Process 09:00 Midazolam Drip 50 PHA 09/16/24 In Process Mg/50ml (Versed Drip 5 09:00 Fentanyl Drip PHA 09/16/24 In Process 2500mcg/250mlns 09:00 Nystatin PHA 09/16/24 In Process (Mouth-Throat) 12:00 Acetylcysteine PHA 09/16/24 In Process Inhalation 10% 10:00 Meropenem 1gm Ivpb PHA 09/16/24 In Process (Merrem 1gm/ Ns) 14:00 Ventilator Orders RT 09/16/24 Transmitted 11:49 Fluconazole PHA 09/17/24 In Process 200mg/100ml (Diflucan 10:00 Bladder US 09/16/24 Resulted 14:55 Urine Bacterial MEGHAN 09/16/24 In Process Culture 15:17 Chest Portable XY 09/16/24 Resulted 16:43 Sodium Chl 0.9% PHA 09/16/24 In Process (Ns... 17:45 Abg W/ Co-Ox RT 09/17/24 Logged 06:00 Chest Portable XY 09/17/24 Resulted 05:18 Date of Service: Sep 17, 2024 Billing Provider: ZUHAIR GUILLORY NP Common Visit Codes: [id number] CARE 30-74 MIN ZUHAIR GUILLORY NP Sep 17, 2024 08:26
[2024-09-17 09:10] LABS: Base Excess -1.1 mmol/L (-2.0-3.0)
[2024-09-17] MEDS: ACETYLCYSTEINE 10 %(100MG/ML) SOL 4ML NEB SCH (11:50)
--- NOTE | 2024-09-17 23:42 | DVHPN2 ---
Progress Note - Dictate Date Seen: Sep 17, 2024 Medical Necessity Reason Pt with a Central, PICC or Fol: Yes The following are medically ne: Teague Catheter Reason for teague catheter: Strict I&O Subjective Patient seen and examined at bedside. Sedated, intubated on mechanical ventilator. Overnight events reviewed. vital signs Vital Sign Date Time Temp Pulse Resp B/P (MAP) Pulse Ox O2 Delivery O2 Flow Rate FiO2 09/17/24 23:15 97.9 87 24 90/53 (65) 93 208.2 09/17/24 22:00 Mechanical Ventilator+ 90 90 09/16/24 06:44 60.0 Total Intake and Output 09/16/24 09/16/24 09/17/24 15:00 23:00 07:00 Intake Total 587.279 ml 634.195 ml 725.196 ml Output Total 1400 ml 650 ml Balance 587.279 ml -765.805 ml 75.196 ml medications Current Medications Medications Dose Ordered Sig/Felicitas Route Start Time Stop Time Status Last Admin Dose Admin Ondansetron HCl 4 mg Q4HP PRN IV 09/01/24 10:30 Nitroglycerin 0.4 mg Q5MINP PRN SL 09/01/24 10:30 Piperacillin Sod/ Tazobactam Sod 100 ml @ 25 mls/hr Q6HR IV 09/01/24 18:00 UNV Furosemide 40 mg DAILY IV 09/03/24 10:00 09/17/24 08:06 40 MG Enteral Nutritional Formula 1,000 ml 40ML/HR GT 09/04/24 08:30 Pantoprazole Sodium 40 mg DAILY IV 09/04/24 10:00 09/17/24 08:05 40 MG Enoxaparin Sodium 40 mg DAILY SC 09/04/24 10:00 09/17/24 08:07 40 MG Budesonide 0.5 mg BID NEB 09/04/24 10:00 09/17/24 19:03 0.5 MG Insulin Glargine 15 units DAILY@1000 SC 09/07/24 10:00 09/17/24 08:20 15 UNITS Dexmedetomidine HCl 400 mcg/ Dextrose 100 ml @ 7.135 mls/ hr Q14H1M IV 09/08/24 11:00 09/16/24 04:50 10.703 MLS/HR Acetaminophen 650 mg Q6HP PRN PO 09/09/24 10:45 09/17/24 04:39 650 MG Diagnostic Test (Pha) 1 strip Q6HR 09/10/24 12:00 09/17/24 17:18 1 STRIP Insulin Human Regular Q6HR SC 09/10/24 12:00 09/17/24 05:33 2 UNITS Dextrose 50 ml UD PRN IV 09/10/24 08:15 Azithromycin 250 ml @ 125 mls/hr DAILY IV 09/12/24 10:00 09/17/24 08:18 125 MLS/HR Ipratropium [place] 0.5 mg Q6HR NEB 09/13/24 12:00 09/17/24 19:02 0.5 MG Levalbuterol HCl 1.25 mg Q6HR NEB 09/13/24 12:00 09/17/24 19:02 1.25 MG Risperidone 2 mg DAILY PO 09/14/24 10:00 09/17/24 08:07 2 MG Lorazepam 0.5 mg Q8HP PRN IV 09/15/24 13:15 09/15/24 20:27 0.5 MG Propofol 100 ml @ 3.951 mls/ hr Q24H IV 09/16/24 09:00 09/17/24 18:01 23.706 MLS/HR Midazolam HCl 50 ml @ 1 mls/hr Q24H IV 09/16/24 09:00 09/17/24 21:46 15 MLS/HR Fentanyl Citrate 250 ml @ 2.5 mls/hr Q24H IV 09/16/24 09:00 09/17/24 21:06 25 MLS/HR Nystatin 5 ml QID MT 09/16/24 12:00 09/17/24 21:46 5 ML Meropenem 50 ml @ 17 mls/hr Q8HR IV 09/16/24 14:00 09/17/24 21:46 17 MLS/HR Fluconazole 100 ml @ 100 mls/hr DAILY IV 09/17/24 10:00 09/17/24 08:06 100 MLS/HR Norepinephrine Bitartrate 32 mg/ Sodium Chloride 250 ml @ 0.938 mls/ hr Q24H IV 09/16/24 17:45 09/16/24 20:19 6.563 MLS/HR Acetylcysteine 100 mg Q6HR NEB 09/17/24 12:00 09/17/24 19:02 100 MG objective Gen.: Patient lying in bed in medical ICU. Sedated, intubated on mechanical ventilator. Head: Normocephalic, atraumatic. Eyes: PERRLA. Ears: Normal external anatomy. Throat: Endotracheal tube and orogastric tube in place. Neck: Supple, trachea midline. Chest: Transmitted breath sounds bilaterally. Decreased air entry bilaterally. No wheezing. Bibasilar crackles. Cardiovascular: Positive S1, positive S2. Regular rate and rhythm. Abdomen: Positive bowel sounds in all 4 quadrants. Soft, nontender, nondistended. : Teague in place. Normal external genitalia. Rectal: Deferred. Skin: Warm, dry. Intact. Extremities: 2+ radial pulses bilaterally. No lower extremity edema. Neuro: Sedated. laboratory and microbiology Laboratory Tests 09/17/24 03:55 Test 09/17/24 03:55 Range/Units Serum Glucose 149 H 74-106 mg/dL Assessment/Plan Impression: Acute hypoxic respiratory failure Acute hypercarbic respiratory failure On mechanical ventilator Pleural effusions Atelectasis Morbid obesity with a BMI of 44.8 Pulmonary edema Acute exacerbation of COPD vs Asthma Elevated troponin Events: Remains on vent support On AC mode with RR 24, VT 600, PEEP 12, FIO2 100 -->85% Improved FiO2 requirements Sedated on Propofol, Versed Off pressors, hemodynamically stable Continue antibiotics WBC trending up at 31 K. Diurese w/ Lasix as tolerated Monitor renal function Monitor electrolytes. Supplement as necessary. Tube feeds for nutritional support Monitor WBC Recommend trach/PEG for liberation from vent. 09/16/24 - S/p bronchoscopy w/ bronchoalveolar lavage, removed copious mucous plugs from RUL/RLL + FROYLAN. See separate procedure note for details. Labs and imaging reviewed. Rest of plan as noted below. Plan: s/p re-intubation, on mechanical ventilator On AC mode with RR 24, VT 600, PEEP 12, FIO2 85% Sedated for vent synchrony Bronchodilators Steroids - completed Pressors if necessary for hemodynamic support. Titrate to keep MAP above 65 mmHg/SBP above 90 mmHg. F/u Echo to evaluate LVEF, RVSP and r/o valvular dysfunction. F/u Cardiology recommendations Plan for CTA of chest to r/o PE. Antibiotics. Zosyn/Vancomycin F/u cultures. Positive GPC in blood cultures - Follow up ID and sensitivities. Maintain euvolemia Monitor renal function due to Acute kidney injury. Monitor electrolytes. Supplement as necessary. Nutritional support. Accu-Cheks, ISS. Morbid obesity, complicates all care. Diet and lifestyle modifications for weight reduction recommended. GI/DVT prophylaxis. Condition: Critical Prognosis: Poor given multiple comorbidities. Rest of plan per hospitalist and other consultants. A total of 35 minutes of critical care time was spent reviewing the patient record, examining the patient, making a diagnostic and therapeutic plan, discussing this plan with the medical personnel, following up on diagnostic studies and following the patient for clinical stability excluding any and all procedures. At least 50% of this time was spent in direct, [id number] contact. Thank you ANAHI Montoya for allowing me to participate in this patient's care. Further recommendations will depend on patient's clinical course. Please do not hesitate to contact me if you have any questions or concerns. This medical document was created using an electronic medical record system with [employer] dictation system. Although this document has been carefully reviewed, there may still be some phonetic and typographical errors. These areas are purely typographical due to imperfections of the software programs, and do not reflect any compromise in the patient's medical care. Dietary Evaluation Review Recommendations by RD: Increase Calorie Intake Comments: 1. Increase TF as tolerated to goal rate to 50 mL/hr.Goal rate will provide ~ 87 daily estimated energy needs and ~60% daily estimated protein needs. 2. Advance to CCHO 60g diet pending [employer] approval when medically feasible. 3. Continue to monitor patient's weight and labs. Expected Outcomes/Goals: 1. labs to improve 2. diet to advance 3. continue plan of care 4. f/u in 2-3 days Plan discussed with: Other (FERNANDO Aaron) Critical Care Time(min): 35 LIZ GUDINO MD Sep 17, 2024 23:42
[2024-09-18] VITALS (111 sets, daily range): BP systolic 86–123; BP diastolic 47–82; PULSE 84–117; RESP 19–25; TEMP 97.3–100.8; O2SAT 90–99
[2024-09-18 04:29] LABS: Basophils # (auto) 0.1 10 ^3/uL (0-0.2); Basophils % (auto) 0.3 % (0.0-2.0); Eosinophils # (auto) 0.3 10 ^3/uL (0-0.8); Eosinophils % (auto) 1.2 % (0.0-7.0); Hematocrit 42.2 % (41.0-53.0); Hemoglobin 13.7 g/dL (13.5-17.5); Lymphocytes # (auto) 1.2 10 ^3/uL (0.4-5.4); Lymphocytes % (auto) 5.2 % (10.0-50.0); Mean Corpuscular Hemoglobin 30.5 pg (28.0-32.0); Mean Corpuscular Hgb Conc. 32.4 g/dL (32.0-36.0); Mean Corpuscular Volume 94.2 fL (80.0-100.0); Monocytes # (auto) 1.1 10 ^3/uL (0-1.3); Monocytes % (auto) 4.6 % (0.0-12.0); Neutrophils # (auto) 21.2 10 ^3/uL (1.6-8.6); Neutrophils % (auto) 88.7 % (37.0-80.0); Platelet Count (auto) 204 10^3/uL (140-450); Red Blood Cells 4.48 10^6/uL (4.5-5.90); Red Cell Distribution Width 14.5 % (11.8-14.3)
[2024-09-18 04:56] LABS: Alanine Aminotransferase 26 U/L (7-40); Albumin 3.7 g/dL (3.2-4.8); Anion Gap 10 (5-15); Aspartate Aminotransferase 18 U/L (13-40); BUN/Creatinine Ratio 34.6 (10.0-20.0); Bilirubin, Total 0.4 mg/dL (0.2-1.0); Calcium 10.2 mg/dL (8.7-10.4); Carbon Dioxide 27 mmol/L (20-31); Potassium 3.7 mmol/L (3.5-5.1); Total Protein 6.6 g/dL (5.7-8.2)
[2024-09-18 05:10] LABS: Alkaline Phosphatase 193 U/L (46-116); Blood Urea Nitrogen 27 mg/dL (9-23); Chloride 110 mmol/L (98-107); Glucose 113 mg/dL (74-106); Sodium 147 mmol/L (136-145)
--- NOTE | 2024-09-18 05:17 | DVH ---
CHEST RADIOGRAPH Indication: ACUTE RESPIRATORY FAILURE Technique: Single frontal view of the chest was obtained Comparison: XY CHEST PORTABLE on DOS: 09/17/24, XY CHEST PORTABLE on DOS: 09/16/24, XY CHEST PORTABLE on DOS: 09/16/24 IMPRESSION: Images limited by patient positioning. Support lines and tubes appear unchanged. The lung bases are e xcluded. There are likely bilateral pleural effusions, increased from prior examination and moderate pulmonary vascular congestion. Bibasilar airspace opacities may represent infectious process or atel ectasis. No pneumothorax.
[2024-09-18] MEDS ORDERED: Jevity 1.2 Cal/Fiber 1 Liter GT SCH (06:45)
--- NOTE | 2024-09-18 07:24 | DVHPN2 ---
Subjective Intubated and chemically sedated. Reviewed: Care Plan, H&P, Labs, Medications, Previous Orders, Radiology, Other (Consultants) Changes from previous H/P or p: No Changes General: Per HPI Objective Vitals Vital Signs Date Time Temp Pulse Resp B/P (MAP) Pulse Ox O2 Delivery O2 Flow Rate FiO2 09/18/24 07:00 98.8 94 24 96/56 (69) 96 209.8 09/18/24 06:00 90 09/18/24 06:00 Mechanical Ventilator+ Intake/Output Intake and Output 09/18/24 07:00 Intake Total 2082.703 ml Output Total 1650 ml Balance 432.703 ml Intake Oral 100 ml IV Total 1982.703 ml Output Urine Total 1650 ml General Appearance: moderate distress, Other (intubated and sedated ) HEENT: Atraumatic, Other (Pinpoint pupils) Lungs: Clear to auscultation, Other (On the vent) Cardiovascular: Regular rate, Normal S1, Normal S2 Abdomen: Normal bowel sounds, Soft Musculoskeletal: Weak motor strength RUE, Weak motor strength LUE, Weak motor strength RLE, Weak motor strength LLE Extremities: Other (1+ bilateral lower extremities edema) Skin: Dry, Intact Psych/Mental Status: Other (intubated and sedated ) Medications Current Medications Medications Dose Ordered Sig/Felicitas Route Start Time Stop Time Status Last Admin Dose Admin Ondansetron HCl 4 mg Q4HP PRN IV 09/01/24 10:30 Nitroglycerin 0.4 mg Q5MINP PRN SL 09/01/24 10:30 Piperacillin Sod/ Tazobactam Sod 100 ml @ 25 mls/hr Q6HR IV 09/01/24 18:00 UNV Furosemide 40 mg DAILY IV 09/03/24 10:00 09/17/24 08:06 40 MG Pantoprazole Sodium 40 mg DAILY IV 09/04/24 10:00 09/17/24 08:05 40 MG Enoxaparin Sodium 40 mg DAILY SC 09/04/24 10:00 09/17/24 08:07 40 MG Budesonide 0.5 mg BID NEB 09/04/24 10:00 09/18/24 05:57 0.5 MG Insulin Glargine 15 units DAILY@1000 SC 09/07/24 10:00 09/17/24 08:20 15 UNITS Acetaminophen 650 mg Q6HP PRN PO 09/09/24 10:45 09/17/24 04:39 650 MG Diagnostic Test (Pha) 1 strip Q6HR 09/10/24 12:00 09/18/24 05:42 1 STRIP Insulin Human Regular Q6HR SC 09/10/24 12:00 09/17/24 05:33 2 UNITS Dextrose 50 ml UD PRN IV 09/10/24 08:15 Azithromycin 250 ml @ 125 mls/hr DAILY IV 09/12/24 10:00 09/17/24 08:18 125 MLS/HR Ipratropium [place] 0.5 mg Q6HR NEB 09/13/24 12:00 09/18/24 05:57 0.5 MG Levalbuterol HCl 1.25 mg Q6HR NEB 09/13/24 12:00 09/18/24 05:57 1.25 MG Risperidone 2 mg DAILY PO 09/14/24 10:00 09/17/24 08:07 2 MG Lorazepam 0.5 mg Q8HP PRN IV 09/15/24 13:15 09/15/24 20:27 0.5 MG Propofol 100 ml @ 3.951 mls/ hr Q24H IV 09/16/24 09:00 09/18/24 03:14 23.706 MLS/HR Midazolam HCl 50 ml @ 1 mls/hr Q24H IV 09/16/24 09:00 09/18/24 04:27 15 MLS/HR Fentanyl Citrate 250 ml @ 2.5 mls/hr Q24H IV 09/16/24 09:00 09/18/24 06:44 25 MLS/HR Nystatin 5 ml QID MT 09/16/24 12:00 09/18/24 05:41 5 ML Meropenem 50 ml @ 17 mls/hr Q8HR IV 09/16/24 14:00 09/18/24 05:41 17 MLS/HR Fluconazole 100 ml @ 100 mls/hr DAILY IV 09/17/24 10:00 09/17/24 08:06 100 MLS/HR Norepinephrine Bitartrate 32 mg/ Sodium Chloride 250 ml @ 0.938 mls/ hr Q24H IV 09/16/24 17:45 09/16/24 20:19 6.563 MLS/HR Acetylcysteine 100 mg Q6HR NEB 09/17/24 12:00 09/18/24 05:57 100 MG Enteral Nutritional Formula 1,000 ml 40ML/HR GT 09/18/24 06:45 Purified Water 200 ml Q6HR GT 09/18/24 12:00 Laboratory Results Laboratory Tests 09/18/24 04:01 Chemistry Test 09/18/24 04:01 Albumin 3.7 g/dL (3.2-4.8) Calcium Level 10.2 mg/dL (8.7-10.4) Total Protein 6.6 g/dL (5.7-8.2) LFT Test 09/18/24 04:01 Alanine Aminotransferase (ALT) 26 U/L (7-40) Alkaline Phosphatase 193 U/L (46-116) H Aspartate Amino Transferase (AST) 18 U/L (13-40) Total Bilirubin 0.4 mg/dL (0.2-1.0) Blood Gas Results Test 09/17/24 08:26 Arterial Blood pH 7.339 (7.350-7.450) FiO2 % 90.0 Microbiology Microbiology Date/Time Source Procedure Growth Status 09/16/24 15:15 Urine - [place] Urine Culture - Preliminary Resulted 09/16/24 15:13 Other Endotracheal Wash Gram Stain - Final Resulted 09/16/24 15:13 Other Endotracheal Wash Respiratory Culture - Preliminary Resulted 09/14/24 09:33 Sputum Gram Stain - Final Complete 09/14/24 09:33 Sputum Respiratory Culture - Final Complete 09/12/24 04:15 Blood Blood Culture - Preliminary Resulted Labs and/or images reviewed: Labs reviewed by me, Image(s) reviewed by me Assessment/Plan Assessment/Plan Impression: -acute hypoxic and hypercarbic respiratory failure with failure of noninvasive positive pressure ventilation -community-acquired pneumonia, probable Gram-positive/Gram-negative etiology -morbid obesity -nicotine dependence -sepsis -history of schizophrenia -NSTEMI type 2 Plan: Events: No events overnight. Patient continues to be on high FiO2 requirements at 90% as well as high PEEP at 12. Hemodynamically stable. -restart tube feeding -plans to exchange central line given persistent elevated white blood cell count -continue regular insulin sliding scale, Lantus 15 units daily -pulmonology consultation: Continue recommendations -Change antibiotic therapy to meropenem, Diflucan -Solu-Medrol to 40 mg daily -burrell cultures: No growth at this time -continue DVT prophylaxis -PUD prophylaxis -continue bronchodilators, Pulmicort, Mucomyst -repeat cultures negative thus far -repeat labs, chest x-ray, ABG in a.m. Critical care time spent with patient discussing and formulating plan of care: 40 minutes. This does not include time spent performing procedures. This medical document was created using an electronic medical record system with [employer] dictation system. Although this document has been carefully reviewed, there may still be some phonetic and typographical errors. These areas are purely typographical due to imperfections of the software programs, and do not reflect any compromise in the patient's medical care. Plan discussed with: Patient, Other (RN) My Orders Orders - ZUHAIR GUILLORY NP Procedure Category Date Status Time Acetylcysteine PHA 09/17/24 In Process Inhalation 10% 12:00 Nutritional PHA 09/18/24 In Process Supplements (Jevity 06:45 Free Water PHA 09/18/24 In Process 12:00 Basic Metabolic Panel LAB 09/19/24 Verified 05:00 Basic Metabolic Panel LAB 09/20/24 Verified 05:00 Basic Metabolic Panel LAB 09/21/24 Verified 05:00 Complete Blood Count LAB 09/19/24 Verified 05:00 Complete Blood Count LAB 09/20/24 Verified 05:00 Complete Blood Count LAB 09/21/24 Verified 05:00 Chest Portable XY 09/19/24 Logged 05:00 Chest Portable XY 09/20/24 Logged 05:00 Chest Portable XY 09/21/24 Logged 05:00 Chest Percussion Tx RT 09/18/24 Logged Initi 06:33 Date of Service: Sep 18, 2024 Billing Provider: ZUHAIR GUILLORY NP Common Visit Codes: 41958-[id number] CARE 30-74 MIN ZUHAIR GUILLORY NP Sep 18, 2024 07:24
[2024-09-18 08:10] LABS: Base Excess -0.8 mmol/L (-2.0-3.0)
[2024-09-18] MEDS: FREE WATER GT SCH (10:52)
--- NOTE | 2024-09-18 11:39 | MEDREC ---
COUNTS INCLUDE 234 BEDS AT THE [facility] Intervention Section I COUNTS INCLUDE 234 BEDS AT THE [facility] Intervention: Review courses of therapy (PLEASE CONSIDER SWITCHING AZITHROMYCIN TO DOXYCYLINE DUE TO QTc >500) ZEUS HSIEH Sep 18, 2024 11:39
--- NOTE | 2024-09-18 13:30 | DVHNC2 ---
Procedure - Bronchoscopy procedure note: Indications: Increased ET tube secretions, increased O2 re, Possible mucous plugging. Medicines: See linux system admin notes. Complications: None Procedure: Patient medications and allergies reviewed. The risks and benefits of the procedure and the sedation options and risk were discussed with the patient's healthcare proxy. All questions were answered and informed consent was obtained. Patient identification and proposed procedure were verified prior to the procedure by the physician, and a nurse, and the respiratory therapist in ICU room. The heart rate, respiratory rate, oxygen saturations, blood pressure, adequacy of pulmonary ventilation, and response to care were monitored throughout the procedure. The physical status of the patient was reassessed after the procedure. After obtaining informed consent, the bronchoscope was introduced through the endotracheal tube and advanced into the trachea bronchial tree of both lungs. The procedure was accomplished without difficulty. The patient tolerated the procedure well. Findings: The trachea is in normal caliber. The alf is sharp. The tracheobronchial tree of the right lung was examined to at least the first subsegmental level. The bronchial mucosa and anatomy in the right lung are normal. There are no endobronchial lesions. There was copious whitish secretions from right main stem bronchus onward throughout R1-R3 and R6-R10. Right lower lobe (RLL) Bronchoalveolar lavage (BAL) obtained. RLL BAL sent for gram stain and culture.. The left upper lobe, lingula, and left lower lobe were examined to at least the first subsegmental level. Bronchial mucosa and anatomy in the left upper lobe and lingula are normal. There were no endobronchial lesions. There was copious whitish secretions from left main stem bronchus onward throughout L1-L3. Mucous plugging removed from L1-L3 and L6-L10. There was no active bleeding at the completion of the procedure. Estimated blood loss: Less than 5 mL. Impression: Left lower lobe atelectasis due to mucous plugging Mucous plugging from L1-L3 and L6-L10 and R1-R3 and R6-R10 RLL BAL performed Recommendation: Follow-up RLL BAL results. Procedure codes: 89947, bronchoscopy, rigid and flexible, including fluoroscopic guidance, one performed; with bronchial endobronchial removal of mucous plugging, single or multiple sites LIZ GUDINO MD Sep 18, 2024 13:30
--- NOTE | 2024-09-18 21:47 | DVHPN2 ---
Progress Note - Dictate Date Seen: Sep 18, 2024 Medical Necessity Reason Pt with a Central, PICC or Fol: Yes The following are medically ne: Teague Catheter Reason for teague catheter: Strict I&O Subjective Patient seen and examined at bedside. Sedated, intubated on mechanical ventilator. Overnight events reviewed. vital signs Vital Sign Date Time Temp Pulse Resp B/P (MAP) Pulse Ox O2 Delivery O2 Flow Rate FiO2 09/18/24 21:28 106/51 09/18/24 21:00 100.8 116 24 91 213.4 09/18/24 20:00 80 09/18/24 20:00 Mechanical Ventilator+ Total Intake and Output 09/17/24 09/17/24 09/18/24 15:00 23:00 07:00 Intake Total 925.113 ml 660.648 ml 577.648 ml Output Total 1200 ml 450 ml Balance 925.113 ml -539.352 ml 127.648 ml medications Current Medications Medications Dose Ordered Sig/Felicitas Route Start Time Stop Time Status Last Admin Dose Admin Ondansetron HCl 4 mg Q4HP PRN IV 09/01/24 10:30 Nitroglycerin 0.4 mg Q5MINP PRN SL 09/01/24 10:30 Piperacillin Sod/ Tazobactam Sod 100 ml @ 25 mls/hr Q6HR IV 09/01/24 18:00 UNV Furosemide 40 mg DAILY IV 09/03/24 10:00 09/18/24 08:09 40 MG Pantoprazole Sodium 40 mg DAILY IV 09/04/24 10:00 09/18/24 08:09 40 MG Enoxaparin Sodium 40 mg DAILY SC 09/04/24 10:00 09/18/24 08:10 40 MG Budesonide 0.5 mg BID NEB 09/04/24 10:00 09/18/24 18:10 0.5 MG Insulin Glargine 15 units DAILY@1000 SC 09/07/24 10:00 09/17/24 08:20 15 UNITS Acetaminophen 650 mg Q6HP PRN PO 09/09/24 10:45 09/18/24 16:25 650 MG Diagnostic Test (Pha) 1 strip Q6HR 09/10/24 12:00 09/18/24 17:06 1 STRIP Insulin Human Regular Q6HR SC 09/10/24 12:00 09/17/24 05:33 2 UNITS Dextrose 50 ml UD PRN IV 09/10/24 08:15 Azithromycin 250 ml @ 125 mls/hr DAILY IV 09/12/24 10:00 09/18/24 09:22 125 MLS/HR Ipratropium [place] 0.5 mg Q6HR NEB 09/13/24 12:00 09/18/24 18:10 0.5 MG Levalbuterol HCl 1.25 mg Q6HR NEB 09/13/24 12:00 09/18/24 18:10 1.25 MG Risperidone 2 mg DAILY PO 09/14/24 10:00 09/18/24 08:09 2 MG Lorazepam 0.5 mg Q8HP PRN IV 09/15/24 13:15 09/15/24 20:27 0.5 MG Propofol 100 ml @ 3.951 mls/ hr Q24H IV 09/16/24 09:00 09/18/24 20:11 23.706 MLS/HR Midazolam HCl 50 ml @ 1 mls/hr Q24H IV 09/16/24 09:00 09/18/24 21:28 15 MLS/HR Fentanyl Citrate 250 ml @ 2.5 mls/hr Q24H IV 09/16/24 09:00 09/18/24 16:24 25 MLS/HR Nystatin 5 ml QID MT 09/16/24 12:00 09/18/24 21:34 5 ML Meropenem 50 ml @ 17 mls/hr Q8HR IV 09/16/24 14:00 09/18/24 21:29 17 MLS/HR Fluconazole 100 ml @ 100 mls/hr DAILY IV 09/17/24 10:00 09/18/24 08:08 100 MLS/HR Norepinephrine Bitartrate 32 mg/ Sodium Chloride 250 ml @ 0.938 mls/ hr Q24H IV 09/16/24 17:45 09/16/24 20:19 6.563 MLS/HR Acetylcysteine 100 mg Q6HR NEB 09/17/24 12:00 09/18/24 18:10 100 MG Enteral Nutritional Formula 1,000 ml 40ML/HR GT 09/18/24 06:45 Purified Water 200 ml Q6HR GT 09/18/24 12:00 09/18/24 17:05 200 ML objective Gen.: Patient lying in bed in medical ICU. Sedated, intubated on mechanical ventilator. Head: Normocephalic, atraumatic. Eyes: PERRLA. Ears: Normal external anatomy. Throat: Endotracheal tube and orogastric tube in place. Neck: Supple, trachea midline. Chest: Transmitted breath sounds bilaterally. Decreased air entry bilaterally. No wheezing. Bibasilar crackles. Cardiovascular: Positive S1, positive S2. Regular rate and rhythm. Abdomen: Positive bowel sounds in all 4 quadrants. Soft, nontender, nondistended. : Teague in place. Normal external genitalia. Rectal: Deferred. Skin: Warm, dry. Intact. Extremities: 2+ radial pulses bilaterally. No lower extremity edema. Neuro: Sedated. laboratory and microbiology Laboratory Tests 09/18/24 04:01 Test 09/18/24 04:01 Range/Units Serum Glucose 113 H 74-106 mg/dL Assessment/Plan Impression: Acute hypoxic respiratory failure Acute hypercarbic respiratory failure On mechanical ventilator Pleural effusions Atelectasis Morbid obesity with a BMI of 44.8 Pulmonary edema Acute exacerbation of COPD vs Asthma Elevated troponin Events: Remains on vent support On AC mode with RR 24, VT 600, PEEP 12, FIO2 85 -->100% High FiO2 requirements Sedated on Propofol, Versed, Fentanyl Off pressors, hemodynamically stable Increased ET tube secretions Obtain consent for therapeutic bronchoscopy w/ BAL. Continue bronchodilators Continue antibiotics Leukocytosis - WBC trending down, 24.0 K. Diurese w/ Lasix as tolerated Monitor renal function Monitor electrolytes. Supplement as necessary. Tube feeds for nutritional support Monitor WBC S/p therapeutic bronchoscopy w/ RLL BAL performed today - Cleared mucous plugging from L1-L3 and L6-L10 and R1-R3 and R6-R10 See separate procedure note for details Recommend trach/PEG for liberation from vent. 09/16/24 - S/p bronchoscopy w/ bronchoalveolar lavage, removed copious mucous plugs from RUL/RLL + FROYLAN. See separate procedure note for details. Labs and imaging reviewed. Rest of plan as noted below. Plan: s/p re-intubation, on mechanical ventilator On AC mode with RR 24, VT 600, PEEP 12, FIO2 100% Sedated for vent synchrony Bronchodilators Steroids - completed Pressors if necessary for hemodynamic support. Titrate to keep MAP above 65 mmHg/SBP above 90 mmHg. F/u Echo to evaluate LVEF, RVSP and r/o valvular dysfunction. F/u Cardiology recommendations Plan for CTA of chest to r/o PE. Antibiotics. Zosyn/Vancomycin F/u cultures. Positive GPC in blood cultures - Follow up ID and sensitivities. Maintain euvolemia Monitor renal function due to Acute kidney injury. Monitor electrolytes. Supplement as necessary. Nutritional support. Accu-Cheks, ISS. Morbid obesity, complicates all care. Diet and lifestyle modifications for weight reduction recommended. GI/DVT prophylaxis. Condition: Critical Prognosis: Poor given multiple comorbidities. Rest of plan per hospitalist and other consultants. A total of 35 minutes of critical care time was spent reviewing the patient record, examining the patient, making a diagnostic and therapeutic plan, discussing this plan with the medical personnel, following up on diagnostic studies and following the patient for clinical stability excluding any and all procedures. At least 50% of this time was spent in direct, [id number] contact. Thank you ANAHI Montoya for allowing me to participate in this patient's care. Further recommendations will depend on patient's clinical course. Please do not hesitate to contact me if you have any questions or concerns. This medical document was created using an electronic medical record system with [employer] computerized dictation system. Although this document has been carefully reviewed, there may still be some phonetic and typographical errors. These areas are purely typographical due to imperfections of the software programs, and do not reflect any compromise in the patient's medical care. Dietary Evaluation Review Recommendations by RD: Increase Calorie Intake Comments: 1. Increase TF as tolerated to goal rate to 50 mL/hr.Goal rate will provide ~ 87 daily estimated energy needs and ~60% daily estimated protein needs. 2. Advance to CCHO 60g diet pending [employer] approval when medically feasible. 3. Continue to monitor patient's weight and labs. Expected Outcomes/Goals: 1. labs to improve 2. diet to advance 3. continue plan of care 4. f/u in 2-3 days Plan discussed with: Other (FERNANDO Livingston) Critical Care Time(min): 35 LIZ GUDINO MD Sep 18, 2024 21:47
[2024-09-19] VITALS (106 sets, daily range): BP systolic 89–123; BP diastolic 39–81; PULSE 57–108; RESP 22–25; TEMP 99–100.8; O2SAT 92–98
[2024-09-19 03:59] LABS: Basophils # (auto) 0.1 10 ^3/uL (0-0.2); Basophils % (auto) 0.4 % (0.0-2.0); Eosinophils # (auto) 0.2 10 ^3/uL (0-0.8); Eosinophils % (auto) 1.3 % (0.0-7.0); Hematocrit 37.9 % (41.0-53.0); Hemoglobin 12.5 g/dL (13.5-17.5); Lymphocytes # (auto) 1.5 10 ^3/uL (0.4-5.4); Lymphocytes % (auto) 8.3 % (10.0-50.0); Mean Corpuscular Hemoglobin 30.7 pg (28.0-32.0); Mean Corpuscular Volume 93.2 fL (80.0-100.0); Monocytes % (auto) 5.2 % (0.0-12.0); Neutrophils # (auto) 15.6 10 ^3/uL (1.6-8.6); Neutrophils % (auto) 84.8 % (37.0-80.0); Platelet Count (auto) 209 10^3/uL (140-450); Red Blood Cells 4.06 10^6/uL (4.5-5.90); Red Cell Distribution Width 14.5 % (11.8-14.3); White Blood Cell 18.4 10^3/uL (4.4-10.8)
[2024-09-19 04:10] LABS: Anion Gap 8 (5-15); Carbon Dioxide 28 mmol/L (20-31); Potassium 3.7 mmol/L (3.5-5.1)
[2024-09-19 04:12] LABS: Calcium 9.8 mg/dL (8.7-10.4)
[2024-09-19 04:15] LABS: Chloride 110 mmol/L (98-107); Sodium 146 mmol/L (136-145)
[2024-09-19 04:16] LABS: BUN/Creatinine Ratio 32.4 (10.0-20.0)
[2024-09-19 04:22] LABS: Blood Urea Nitrogen 24 mg/dL (9-23); Glucose 136 mg/dL (74-106)
--- NOTE | 2024-09-19 05:47 | DVH ---
CHEST RADIOGRAPH Indication: pna Technique: Single frontal view of the chest was obtained Comparison: XY CHEST PORTABLE on DOS: 09/18/24, XY CHEST PORTABLE on DOS: 09/17/24, XY CHEST PORTABLE o n DOS: 09/16/24, XY CHEST PORTABLE on DOS: 09/16/24, XY CHEST PORTABLE on DOS: 09/16/24, XY CHEST PORTABLE on DOS: 09/18/24 FINDINGS: Images limited by patient positioning. Support lines and tubes appear unchanged. The lung bases are e xcluded. There are likely bilateral pleural effusions, increased from prior examination and moderate pulmonary vascular congestion. Bibasilar airspace opacities may represent infectious process or atel ectasis. No pneumothorax. IMPRESSION: No change.
[2024-09-19] MEDS ORDERED: VANCOMYCIN PER PHARMACY 0 MG IV SCH (06:45)
[2024-09-19] MEDS: VANCOMYCIN 1GM/250ML KIT 250 ML IV SCH (07:07)
[2024-09-19 08:35] LABS: Base Excess -0.4 mmol/L (-2.0-3.0)
--- NOTE | 2024-09-19 10:07 | DVHPN2 ---
Subjective Intubated and chemically sedated. Reviewed: Care Plan, H&P, Labs, Medications, Previous Orders, Radiology, Other (Consultants) Changes from previous H/P or p: No Changes General: Per HPI Objective Vitals Vital Signs Date Time Temp Pulse Resp B/P (MAP) Pulse Ox O2 Delivery O2 Flow Rate FiO2 09/19/24 09:33 111/69 09/19/24 09:00 99.5 104 24 96 211.1 09/19/24 08:00 75 09/19/24 08:00 Mechanical Ventilator+ Intake/Output Intake and Output 09/19/24 07:00 Intake Total 2883.140 ml Output Total 1800 ml Balance 1083.140 ml Intake Oral 950 ml IV Total 1933.140 ml Output Urine Total 1800 ml General Appearance: moderate distress, Other (intubated and sedated ) HEENT: Atraumatic, Other (Pinpoint pupils) Lungs: Clear to auscultation, Other (On the vent) Cardiovascular: Regular rate, Normal S1, Normal S2 Abdomen: Normal bowel sounds, Soft Musculoskeletal: Weak motor strength RUE, Weak motor strength LUE, Weak motor strength RLE, Weak motor strength LLE Extremities: Other (1+ bilateral lower extremities edema) Skin: Dry, Intact Psych/Mental Status: Other (intubated and sedated ) Medications Current Medications Medications Dose Ordered Sig/Felicitas Route Start Time Stop Time Status Last Admin Dose Admin Ondansetron HCl 4 mg Q4HP PRN IV 09/01/24 10:30 Nitroglycerin 0.4 mg Q5MINP PRN SL 09/01/24 10:30 Piperacillin Sod/ Tazobactam Sod 100 ml @ 25 mls/hr Q6HR IV 09/01/24 18:00 UNV Furosemide 40 mg DAILY IV 09/03/24 10:00 09/19/24 07:27 40 MG Pantoprazole Sodium 40 mg DAILY IV 09/04/24 10:00 09/19/24 07:27 40 MG Enoxaparin Sodium 40 mg DAILY SC 09/04/24 10:00 09/19/24 07:28 40 MG Budesonide 0.5 mg BID NEB 09/04/24 10:00 09/19/24 06:06 0.5 MG Insulin Glargine 15 units DAILY@1000 SC 09/07/24 10:00 09/17/24 08:20 15 UNITS Acetaminophen 650 mg Q6HP PRN PO 09/09/24 10:45 09/19/24 00:10 650 MG Diagnostic Test (Pha) 1 strip Q6HR 09/10/24 12:00 09/19/24 05:30 1 STRIP Insulin Human Regular Q6HR SC 09/10/24 12:00 09/17/24 05:33 2 UNITS Dextrose 50 ml UD PRN IV 09/10/24 08:15 Azithromycin 250 ml @ 125 mls/hr DAILY IV 09/12/24 10:00 09/19/24 08:28 125 MLS/HR Ipratropium [place] 0.5 mg Q6HR NEB 09/13/24 12:00 09/19/24 06:06 0.5 MG Levalbuterol HCl 1.25 mg Q6HR NEB 09/13/24 12:00 09/19/24 06:06 1.25 MG Risperidone 2 mg DAILY PO 09/14/24 10:00 09/19/24 07:27 2 MG Lorazepam 0.5 mg Q8HP PRN IV 09/15/24 13:15 09/15/24 20:27 0.5 MG Propofol 100 ml @ 3.951 mls/ hr Q24H IV 09/16/24 09:00 09/19/24 09:33 19.755 MLS/HR Midazolam HCl 50 ml @ 1 mls/hr Q24H IV 09/16/24 09:00 09/19/24 07:01 13 MLS/HR Fentanyl Citrate 250 ml @ 2.5 mls/hr Q24H IV 09/16/24 09:00 09/19/24 01:16 25 MLS/HR Nystatin 5 ml QID MT 09/16/24 12:00 09/19/24 05:30 5 ML Meropenem 50 ml @ 17 mls/hr Q8HR IV 09/16/24 14:00 09/19/24 05:30 17 MLS/HR Fluconazole 100 ml @ 100 mls/hr DAILY IV 09/17/24 10:00 09/19/24 07:28 100 MLS/HR Norepinephrine Bitartrate 32 mg/ Sodium Chloride 250 ml @ 0.938 mls/ hr Q24H IV 09/16/24 17:45 09/16/24 20:19 6.563 MLS/HR Acetylcysteine 100 mg Q6HR NEB 09/17/24 12:00 09/19/24 06:06 100 MG Enteral Nutritional Formula 1,000 ml 40ML/HR GT 09/18/24 06:45 Purified Water 200 ml Q6HR GT 09/18/24 12:00 09/19/24 05:30 200 ML Vancomycin HCl 0 ml @ 0 mls/hr UD IV 09/19/24 06:45 UNV Vancomycin HCl 250 ml @ 125 mls/hr Q2H IV 09/19/24 07:00 09/19/24 10:59 09/19/24 08:28 125 MLS/HR Laboratory Results Laboratory Tests 09/19/24 03:28 Chemistry Test 09/19/24 03:28 Calcium Level 9.8 mg/dL (8.7-10.4) Blood Gas Results Test 09/19/24 08:06 Arterial Blood pH 7.375 (7.350-7.450) FiO2 % 75.0 Microbiology Microbiology Date/Time Source Procedure Growth Status 09/16/24 15:15 Urine - [place] Urine Culture - Final Complete 09/16/24 15:13 Other Endotracheal Wash Gram Stain - Final Complete 09/16/24 15:13 Respiratory Culture - Final Methicillin Resistant S.aureus Complete 09/14/24 09:33 Sputum Gram Stain - Final Complete 09/14/24 09:33 Sputum Respiratory Culture - Final Complete 09/12/24 04:15 Blood Blood Culture - Preliminary Resulted Labs and/or images reviewed: Labs reviewed by me, Image(s) reviewed by me Assessment/Plan Assessment/Plan Impression: -acute hypoxic and hypercarbic respiratory failure with failure of noninvasive positive pressure ventilation -community-acquired pneumonia, MRSA -morbid obesity -nicotine dependence -sepsis -history of schizophrenia -NSTEMI type 2 Plan: Events: No events overnight. Improved FiO2 requirements. Consult surgery once patient is FiO2 and PEEP has been decreased. -continue tube feedings -plans to exchange central line given persistent elevated white blood cell count -continue regular insulin sliding scale, Lantus 15 units daily -pulmonology consultation: Continue recommendations -Change antibiotic therapy to meropenem, Diflucan, add vancomycin -Solu-Medrol to 40 mg daily -burrell cultures: No growth at this time -continue DVT prophylaxis -PUD prophylaxis -continue bronchodilators, Pulmicort, Mucomyst -repeat cultures negative thus far -repeat labs, chest x-ray, ABG in a.m. Critical care time spent with patient discussing and formulating plan of care: 40 minutes. This does not include time spent performing procedures. This medical document was created using an electronic medical record system with [employer] dictation system. Although this document has been carefully reviewed, there may still be some phonetic and typographical errors. These areas are purely typographical due to imperfections of the software programs, and do not reflect any compromise in the patient's medical care. Plan discussed with: Patient, Other (RN) My Orders Orders - ZUHAIR GUILLORY NP Procedure Category Date Status Time Pharmacy [facility] 09/18/24 In Process Clarification: 11:36 Vancomycin Per [facility] 09/19/24 Pending Pharmacy 06:45 Vancomycin 1gm/250ml [facility] 09/19/24 In Process Kit 07:00 Date of Service: Sep 19, 2024 Billing Provider: ZUHAIR GUILLORY NP Common Visit Codes: [id number] CARE 30-74 MIN ZUHAIR GUILLORY NP Sep 19, 2024 10:07
[2024-09-19] MEDS: VANCOMYCIN 1.25GM/250ML 250 ML IV SCH (14:31)
--- NOTE | 2024-09-19 21:49 | DVHPN2 ---
Progress Note - Dictate Date Seen: Sep 19, 2024 Medical Necessity Reason Pt with a Central, PICC or Fol: Yes The following are medically ne: Teague Catheter Reason for teague catheter: Strict I&O Subjective Patient seen and examined at bedside. Sedated, intubated on mechanical ventilator. Overnight events reviewed. vital signs Vital Sign Date Time Temp Pulse Resp B/P (MAP) Pulse Ox O2 Delivery O2 Flow Rate FiO2 09/19/24 21:41 100.6 09/19/24 21:14 95/54 09/19/24 20:15 107 24 93 09/19/24 20:00 Mechanical Ventilator+ 60 60 Total Intake and Output 09/18/24 09/18/24 09/19/24 15:00 23:00 07:00 Intake Total 876.648 ml 1060.648 ml 958.844 ml Output Total 950 ml 850 ml Balance 876.648 ml 110.648 ml 108.844 ml medications Current Medications Medications Dose Ordered Sig/Felicitas Route Start Time Stop Time Status Last Admin Dose Admin Ondansetron HCl 4 mg Q4HP PRN IV 09/01/24 10:30 Nitroglycerin 0.4 mg Q5MINP PRN SL 09/01/24 10:30 Piperacillin Sod/ Tazobactam Sod 100 ml @ 25 mls/hr Q6HR IV 09/01/24 18:00 UNV Furosemide 40 mg DAILY IV 09/03/24 10:00 09/19/24 07:27 40 MG Pantoprazole Sodium 40 mg DAILY IV 09/04/24 10:00 09/19/24 07:27 40 MG Enoxaparin Sodium 40 mg DAILY SC 09/04/24 10:00 09/19/24 07:28 40 MG Budesonide 0.5 mg BID NEB 09/04/24 10:00 09/19/24 18:25 0.5 MG Insulin Glargine 15 units DAILY@1000 SC 09/07/24 10:00 09/17/24 08:20 15 UNITS Acetaminophen 650 mg Q6HP PRN PO 09/09/24 10:45 09/19/24 21:41 650 MG Diagnostic Test (Pha) 1 strip Q6HR 09/10/24 12:00 09/19/24 18:03 1 STRIP Insulin Human Regular Q6HR SC 09/10/24 12:00 09/19/24 10:30 2 UNITS Dextrose 50 ml UD PRN IV 09/10/24 08:15 Azithromycin 250 ml @ 125 mls/hr DAILY IV 09/12/24 10:00 09/19/24 08:28 125 MLS/HR Ipratropium [place] 0.5 mg Q6HR NEB 09/13/24 12:00 09/19/24 18:25 0.5 MG Levalbuterol HCl 1.25 mg Q6HR NEB 09/13/24 12:00 09/19/24 18:25 1.25 MG Risperidone 2 mg DAILY PO 09/14/24 10:00 09/19/24 07:27 2 MG Lorazepam 0.5 mg Q8HP PRN IV 09/15/24 13:15 09/15/24 20:27 0.5 MG Propofol 100 ml @ 3.951 mls/ hr Q24H IV 09/16/24 09:00 09/19/24 18:30 19.755 MLS/HR Midazolam HCl 50 ml @ 1 mls/hr Q24H IV 09/16/24 09:00 09/19/24 18:30 13 MLS/HR Fentanyl Citrate 250 ml @ 2.5 mls/hr Q24H IV 09/16/24 09:00 09/19/24 21:14 22.5 MLS/HR Nystatin 5 ml QID MT 09/16/24 12:00 09/19/24 21:41 5 ML Meropenem 50 ml @ 17 mls/hr Q8HR IV 09/16/24 14:00 09/19/24 21:41 17 MLS/HR Fluconazole 100 ml @ 100 mls/hr DAILY IV 09/17/24 10:00 09/19/24 07:28 100 MLS/HR Norepinephrine Bitartrate 32 mg/ Sodium Chloride 250 ml @ 0.938 mls/ hr Q24H IV 09/16/24 17:45 09/16/24 20:19 6.563 MLS/HR Acetylcysteine 100 mg Q6HR NEB 09/17/24 12:00 09/19/24 18:25 100 MG Enteral Nutritional Formula 1,000 ml 40ML/HR GT 09/18/24 06:45 Purified Water 200 ml Q6HR GT 09/18/24 12:00 09/19/24 18:03 200 ML Vancomycin HCl 0 ml @ 0 mls/hr UD IV 09/19/24 06:45 Vancomycin HCl 250 ml @ 200 mls/hr Q8H IV 09/19/24 15:00 09/19/24 14:31 200 MLS/HR objective Gen.: Patient lying in bed in medical ICU. Sedated, intubated on mechanical ventilator. Head: Normocephalic, atraumatic. Eyes: PERRLA. Ears: Normal external anatomy. Throat: Endotracheal tube and orogastric tube in place. Neck: Supple, trachea midline. Chest: Transmitted breath sounds bilaterally. Decreased air entry bilaterally. No wheezing. Bibasilar crackles. Cardiovascular: Positive S1, positive S2. Regular rate and rhythm. Abdomen: Positive bowel sounds in all 4 quadrants. Soft, nontender, nondistended. : Teague in place. Normal external genitalia. Rectal: Deferred. Skin: Warm, dry. Intact. Extremities: 2+ radial pulses bilaterally. No lower extremity edema. Neuro: Sedated. laboratory and microbiology Laboratory Tests 09/19/24 03:28 Test 09/19/24 03:28 Range/Units Serum Glucose 136 H 74-106 mg/dL Assessment/Plan Impression: Acute hypoxic respiratory failure Acute hypercarbic respiratory failure On mechanical ventilator Pleural effusions Atelectasis Morbid obesity with a BMI of 44.8 Pulmonary edema Acute exacerbation of COPD vs Asthma Elevated troponin Events: Remains on vent support On AC mode with RR 24, VT 600, PEEP 12, FIO2 100 -->60% Improved FiO2 requirements Sedated on Propofol, Versed, Fentanyl Off pressors, hemodynamically stable S/p therapeutic bronchoscopy w/ RLL BAL on 09/18/24. Mucous plugging cleared from L1-L3 and L6-L10 and R1-R3 and R6-R10 See separate procedure note for details Continue bronchodilators Continue antibiotics Leukocytosis - WBC trending down, 18.4 K. Diurese w/ Lasix as tolerated Monitor renal function Monitor electrolytes. Supplement as necessary. Tube feeds for nutritional support Monitor WBC S/p therapeutic bronchoscopy w/ RLL BAL performed today - Cleared mucous plugging from L1-L3 and L6-L10 and R1-R3 and R6-R10 See separate procedure note for details Recommend trach/PEG for liberation from vent. 09/16/24 - S/p bronchoscopy w/ bronchoalveolar lavage, removed copious mucous plugs from RUL/RLL + FROYLAN. See separate procedure note for details. Labs and imaging reviewed. Rest of plan as noted below. Plan: s/p re-intubation, on mechanical ventilator On AC mode with RR 24, VT 600, PEEP 12, FIO2 60% Taper FiO2 as tolerated Sedated for vent synchrony Bronchodilators Steroids - completed Pressors if necessary for hemodynamic support. Titrate to keep MAP above 65 mmHg/SBP above 90 mmHg. F/u Echo to evaluate LVEF, RVSP and r/o valvular dysfunction. F/u Cardiology recommendations Plan for CTA of chest to r/o PE. Antibiotics. Zosyn/Vancomycin F/u cultures. Positive GPC in blood cultures - Follow up ID and sensitivities. Maintain euvolemia Monitor renal function due to Acute kidney injury. Monitor electrolytes. Supplement as necessary. Nutritional support. Accu-Cheks, ISS. Morbid obesity, complicates all care. Diet and lifestyle modifications for weight reduction recommended. GI/DVT prophylaxis. Condition: Critical Prognosis: Poor given multiple comorbidities. Rest of plan per hospitalist and other consultants. A total of 35 minutes of critical care time was spent reviewing the patient record, examining the patient, making a diagnostic and therapeutic plan, discussing this plan with the medical personnel, following up on diagnostic studies and following the patient for clinical stability excluding any and all procedures. At least 50% of this time was spent in direct, [id number] contact. Thank you ANAHI Montoya for allowing me to participate in this patient's care. Further recommendations will depend on patient's clinical course. Please do not hesitate to contact me if you have any questions or concerns. This medical document was created using an electronic medical record system with [employer] dictation system. Although this document has been carefully reviewed, there may still be some phonetic and typographical errors. These areas are purely typographical due to imperfections of the software programs, and do not reflect any compromise in the patient's medical care. Dietary Evaluation Review Recommendations by RD: Increase Calorie Intake Comments: 1. Increase TF as tolerated to goal rate to 50 mL/hr.Goal rate will provide ~ 87 daily estimated energy needs and ~60% daily estimated protein needs. 2. Advance to [facility] 60g diet pending [employer] approval when medically feasible. 3. Continue to monitor patient's weight and labs. Expected Outcomes/Goals: 1. labs to improve 2. diet to advance 3. continue plan of care 4. f/u in 2-3 days Plan discussed with: Other (FERNANDO Aaron) Critical Care Time(min): 35 LIZ GUDINO MD Sep 19, 2024 21:49
[2024-09-20] VITALS (102 sets, daily range): BP systolic 94–128; BP diastolic 47–88; PULSE 92–109; RESP 21–28; TEMP 99.9–101.1; O2SAT 89–97
[2024-09-20 04:32] LABS: Basophils # (auto) 0.1 10 ^3/uL (0-0.2); Basophils % (auto) 0.6 % (0.0-2.0); Eosinophils # (auto) 0.2 10 ^3/uL (0-0.8); Eosinophils % (auto) 1.8 % (0.0-7.0); Hematocrit 37.3 % (41.0-53.0); Hemoglobin 12.2 g/dL (13.5-17.5); Lymphocytes # (auto) 1.6 10 ^3/uL (0.4-5.4); Mean Corpuscular Hemoglobin 30.4 pg (28.0-32.0); Mean Corpuscular Hgb Conc. 32.6 g/dL (32.0-36.0); Mean Corpuscular Volume 93.3 fL (80.0-100.0); Monocytes % (auto) 7.1 % (0.0-12.0); Neutrophils # (auto) 11.2 10 ^3/uL (1.6-8.6); Neutrophils % (auto) 79.5 % (37.0-80.0); Platelet Count (auto) 220 10^3/uL (140-450); Red Cell Distribution Width 14.4 % (11.8-14.3); White Blood Cell 14.1 10^3/uL (4.4-10.8)
[2024-09-20 04:33] LABS: Anion Gap 7 (5-15); Calcium 9.8 mg/dL (8.7-10.4); Carbon Dioxide 30 mmol/L (20-31); Potassium 3.7 mmol/L (3.5-5.1)
[2024-09-20 04:39] LABS: BUN/Creatinine Ratio 28.6 (10.0-20.0); Blood Urea Nitrogen 16 mg/dL (9-23)
[2024-09-20 04:52] LABS: Chloride 110 mmol/L (98-107); Glucose 110 mg/dL (74-106); Sodium 147 mmol/L (136-145)
--- NOTE | 2024-09-20 05:23 | DVH ---
CHEST RADIOGRAPH Indication: pna Technique: Single frontal view of the chest was obtained COMPARISON: XY CHEST PORTABLE on DOS: 09/19/24, XY CHEST PORTABLE on DOS: 09/18/24, XY CHEST PORTABLE o n DOS: 09/17/24, XY CHEST PORTABLE on DOS: 09/16/24, XY CHEST PORTABLE on DOS: 09/16/24 FINDINGS: Lines and Tubes: Endotracheal tube, enteric catheter and right central venous catheter in satisfactor y position. Lungs: Congestion Pleura: No effusion. No pneumothorax. Cardiomediastinal contours: Unremarkable Bones: Unremarkable IMPRESSION: Lines and tubes in satisfactory position. No significant interval change.
[2024-09-20 08:09] LABS: Base Excess 2.3 mmol/L (-2.0-3.0)
--- NOTE | 2024-09-20 09:19 | DVHPN2 ---
Subjective Intubated and chemically sedated. Reviewed: Care Plan, H&P, Labs, Medications, Previous Orders, Radiology, Other (Consultants) Changes from previous H/P or p: No Changes General: Per HPI Objective Vitals Vital Signs Date Time Temp Pulse Resp B/P (MAP) Pulse Ox O2 Delivery O2 Flow Rate FiO2 09/20/24 08:30 103 24 119/66 (83) 93 60 09/20/24 08:30 100.4 212.7 09/20/24 08:00 Mechanical Ventilator+ Intake/Output Intake and Output 09/20/24 07:00 Intake Total 3358.070 ml Output Total 2650 ml Balance 708.070 ml Intake Oral 960 ml IV Total 2398.070 ml Output Urine Total 2650 ml General Appearance: moderate distress, Other (intubated and sedated ) HEENT: Atraumatic, Other (Pinpoint pupils) Lungs: Clear to auscultation, Other (On the vent) Cardiovascular: Regular rate, Normal S1, Normal S2 Abdomen: Normal bowel sounds, Soft Musculoskeletal: Weak motor strength RUE, Weak motor strength LUE, Weak motor strength RLE, Weak motor strength LLE Extremities: Other (1+ bilateral lower extremities edema) Skin: Dry, Intact Psych/Mental Status: Other (intubated and sedated ) Medications Current Medications Medications Dose Ordered Sig/Felicitas Route Start Time Stop Time Status Last Admin Dose Admin Ondansetron HCl 4 mg Q4HP PRN IV 09/01/24 10:30 Nitroglycerin 0.4 mg Q5MINP PRN SL 09/01/24 10:30 Piperacillin Sod/ Tazobactam Sod 100 ml @ 25 mls/hr Q6HR IV 09/01/24 18:00 UNV Furosemide 40 mg DAILY IV 09/03/24 10:00 09/19/24 07:27 40 MG Pantoprazole Sodium 40 mg DAILY IV 09/04/24 10:00 09/19/24 07:27 40 MG Enoxaparin Sodium 40 mg DAILY SC 09/04/24 10:00 09/19/24 07:28 40 MG Budesonide 0.5 mg BID NEB 09/04/24 10:00 09/20/24 06:50 0.5 MG Insulin Glargine 15 units DAILY@1000 SC 09/07/24 10:00 09/17/24 08:20 15 UNITS Acetaminophen 650 mg Q6HP PRN PO 09/09/24 10:45 09/19/24 21:41 650 MG Diagnostic Test (Pha) 1 strip Q6HR 09/10/24 12:00 09/20/24 05:34 1 STRIP Insulin Human Regular Q6HR SC 09/10/24 12:00 09/19/24 10:30 2 UNITS Dextrose 50 ml UD PRN IV 09/10/24 08:15 Azithromycin 250 ml @ 125 mls/hr DAILY IV 09/12/24 10:00 09/19/24 08:28 125 MLS/HR Ipratropium [place] 0.5 mg Q6HR NEB 09/13/24 12:00 09/20/24 06:47 0.5 MG Levalbuterol HCl 1.25 mg Q6HR NEB 09/13/24 12:00 09/20/24 06:47 1.25 MG Risperidone 2 mg DAILY PO 09/14/24 10:00 09/19/24 07:27 2 MG Lorazepam 0.5 mg Q8HP PRN IV 09/15/24 13:15 09/15/24 20:27 0.5 MG Propofol 100 ml @ 3.951 mls/ hr Q24H IV 09/16/24 09:00 09/20/24 04:10 19.755 MLS/HR Midazolam HCl 50 ml @ 1 mls/hr Q24H IV 09/16/24 09:00 09/20/24 06:16 13 MLS/HR Fentanyl Citrate 250 ml @ 2.5 mls/hr Q24H IV 09/16/24 09:00 09/19/24 21:14 22.5 MLS/HR Nystatin 5 ml QID MT 09/16/24 12:00 09/20/24 05:51 5 ML Meropenem 50 ml @ 17 mls/hr Q8HR IV 09/16/24 14:00 09/20/24 05:51 17 MLS/HR Fluconazole 100 ml @ 100 mls/hr DAILY IV 09/17/24 10:00 09/19/24 07:28 100 MLS/HR Norepinephrine Bitartrate 32 mg/ Sodium Chloride 250 ml @ 0.938 mls/ hr Q24H IV 09/16/24 17:45 09/16/24 20:19 6.563 MLS/HR Acetylcysteine 100 mg Q6HR NEB 09/17/24 12:00 09/20/24 06:50 100 MG Enteral Nutritional Formula 1,000 ml 40ML/HR GT 09/18/24 06:45 Purified Water 200 ml Q6HR GT 09/18/24 12:00 09/20/24 05:34 200 ML Vancomycin HCl 0 ml @ 0 mls/hr UD IV 09/19/24 06:45 Vancomycin HCl 250 ml @ 200 mls/hr Q8H IV 09/19/24 15:00 09/20/24 06:45 200 MLS/HR Laboratory Results Laboratory Tests 09/20/24 03:40 Chemistry Test 09/20/24 03:40 Calcium Level 9.8 mg/dL (8.7-10.4) Blood Gas Results Test 09/20/24 07:23 Arterial Blood pH 7.414 (7.350-7.450) FiO2 % 60.0 Microbiology Microbiology Date/Time Source Procedure Growth Status 09/18/24 13:26 Bronchial Washings Gram Stain - Final Resulted 09/18/24 13:26 Bronchial Washings Respiratory Culture - Preliminary Resulted 09/16/24 15:15 Urine - [place] Urine Culture - Final Complete 09/16/24 15:13 Other Endotracheal Wash Gram Stain - Final Complete 09/16/24 15:13 Respiratory Culture - Final Methicillin Resistant S.aureus Complete 09/12/24 04:15 Blood Blood Culture - Preliminary Resulted Labs and/or images reviewed: Labs reviewed by me, Image(s) reviewed by me Assessment/Plan Assessment/Plan Impression: -acute hypoxic and hypercarbic respiratory failure with failure of noninvasive positive pressure ventilation -community-acquired pneumonia, MRSA -morbid obesity -nicotine dependence -sepsis -history of schizophrenia -NSTEMI type 2 Plan: Events: No events overnight. White blood cell count improving. Continues to have low-grade temp. Patient on 60% FiO2, peep of 12 -continue tube feeding -continue regular insulin sliding scale, Lantus 15 units daily -pulmonology consultation: Continue recommendations -Change antibiotic therapy to meropenem, Diflucan, add vancomycin -Solu-Medrol to 40 mg daily -burrell cultures: MRSA of the sputum. -continue DVT prophylaxis -PUD prophylaxis -continue bronchodilators, Pulmicort, Mucomyst -repeat cultures negative thus far -repeat labs, chest x-ray, ABG in a.m. Critical care time spent with patient discussing and formulating plan of care: 40 minutes. This does not include time spent performing procedures. This medical document was created using an electronic medical record system with [employer] system. Although this document has been carefully reviewed, there may still be some phonetic and typographical errors. These areas are purely typographical due to imperfections of the software programs, and do not reflect any compromise in the patient's medical care. Plan discussed with: Patient, Other (RN) My Orders Orders - ZUHAIR GUILLORY NP Procedure Category Date Status Time Vancomycin Per RAMANA 09/19/24 In Process Pharmacy Protoc 13:43 Vancomycin PHA 09/19/24 In Process 1.25gm/250ml 15:00 Date of Service: Sep 20, 2024 Billing Provider: ZUHAIR GUILLORY NP Common Visit Codes: [id number] CARE 30-74 MIN ZUHAIR GUILLORY NP Sep 20, 2024 09:19
--- NOTE | 2024-09-20 10:47 | MEDREC ---
[facility] Intervention Section I [facility] Intervention: Review courses of therapy (10 DAYS ON AZITHROMYCIN - PLEASE CONSIDER D/C) MARY CARMEN PHARMACIST Sep 20, 2024 10:47
--- NOTE | 2024-09-20 18:35 | DVHPN2 ---
Progress Note - Dictate Date Seen: Sep 20, 2024 Medical Necessity Reason Pt with a Central, PICC or Fol: Yes The following are medically ne: Teague Catheter Reason for teague catheter: Strict I&O Subjective Patient seen and examined at bedside. Sedated, intubated on mechanical ventilator. Overnight events reviewed. vital signs Vital Sign Date Time Temp Pulse Resp B/P (MAP) Pulse Ox O2 Delivery O2 Flow Rate FiO2 09/20/24 18:00 24 96 Mechanical Ventilator+ 60 60 09/20/24 18:00 100.0 94 103/62 (76) 212.0 Total Intake and Output 09/19/24 09/19/24 09/20/24 15:00 23:00 07:00 Intake Total 1242.040 ml 998.662 ml 1117.368 ml Output Total 1800 ml 850 ml Balance 1242.040 ml -801.338 ml 267.368 ml medications Current Medications Medications Dose Ordered Sig/Felicitas Route Start Time Stop Time Status Last Admin Dose Admin Ondansetron HCl 4 mg Q4HP PRN IV 09/01/24 10:30 Nitroglycerin 0.4 mg Q5MINP PRN SL 09/01/24 10:30 Piperacillin Sod/ Tazobactam Sod 100 ml @ 25 mls/hr Q6HR IV 09/01/24 18:00 UNV Furosemide 40 mg DAILY IV 09/03/24 10:00 09/20/24 09:58 40 MG Pantoprazole Sodium 40 mg DAILY IV 09/04/24 10:00 09/20/24 09:57 40 MG Enoxaparin Sodium 40 mg DAILY SC 09/04/24 10:00 09/20/24 09:58 40 MG Budesonide 0.5 mg BID NEB 09/04/24 10:00 09/20/24 06:50 0.5 MG Insulin Glargine 15 units DAILY@1000 SC 09/07/24 10:00 09/17/24 08:20 15 UNITS Acetaminophen 650 mg Q6HP PRN PO 09/09/24 10:45 09/19/24 21:41 650 MG Diagnostic Test (Pha) 1 strip Q6HR 09/10/24 12:00 09/20/24 17:15 1 STRIP Insulin Human Regular Q6HR SC 09/10/24 12:00 09/19/24 10:30 2 UNITS Dextrose 50 ml UD PRN IV 09/10/24 08:15 Azithromycin 250 ml @ 125 mls/hr DAILY IV 09/12/24 10:00 09/20/24 09:59 125 MLS/HR Ipratropium [place] 0.5 mg Q6HR NEB 09/13/24 12:00 09/20/24 18:17 0.5 MG Levalbuterol HCl 1.25 mg Q6HR NEB 09/13/24 12:00 09/20/24 18:17 1.25 MG Risperidone 2 mg DAILY PO 09/14/24 10:00 09/20/24 09:57 2 MG Lorazepam 0.5 mg Q8HP PRN IV 09/15/24 13:15 09/15/24 20:27 0.5 MG Propofol 100 ml @ 3.951 mls/ hr Q24H IV 09/16/24 09:00 09/20/24 14:00 19.755 MLS/HR Midazolam HCl 50 ml @ 1 mls/hr Q24H IV 09/16/24 09:00 09/20/24 14:00 13 MLS/HR Fentanyl Citrate 250 ml @ 2.5 mls/hr Q24H IV 09/16/24 09:00 09/20/24 08:00 22.5 MLS/HR Nystatin 5 ml QID MT 09/16/24 12:00 09/20/24 17:14 5 ML Meropenem 50 ml @ 17 mls/hr Q8HR IV 09/16/24 14:00 09/20/24 14:14 17 MLS/HR Fluconazole 100 ml @ 100 mls/hr DAILY IV 09/17/24 10:00 09/20/24 09:58 100 MLS/HR Norepinephrine Bitartrate 32 mg/ Sodium Chloride 250 ml @ 0.938 mls/ hr Q24H IV 09/16/24 17:45 09/16/24 20:19 6.563 MLS/HR Acetylcysteine 100 mg Q6HR NEB 09/17/24 12:00 09/20/24 18:17 100 MG Enteral Nutritional Formula 1,000 ml 40ML/HR GT 09/18/24 06:45 Purified Water 200 ml Q6HR GT 09/18/24 12:00 09/20/24 17:14 200 ML Vancomycin HCl 0 ml @ 0 mls/hr UD IV 09/19/24 06:45 Vancomycin HCl 250 ml @ 200 mls/hr Q8H IV 09/19/24 15:00 09/20/24 16:47 200 MLS/HR objective Gen.: Patient lying in bed in medical ICU. Sedated, intubated on mechanical ventilator. Head: Normocephalic, atraumatic. Eyes: PERRLA. Ears: Normal external anatomy. Throat: Endotracheal tube and orogastric tube in place. Neck: Supple, trachea midline. Chest: Transmitted breath sounds bilaterally. Decreased air entry bilaterally. No wheezing. Bibasilar crackles. Cardiovascular: Positive S1, positive S2. Regular rate and rhythm. Abdomen: Positive bowel sounds in all 4 quadrants. Soft, nontender, nondistended. : Teague in place. Normal external genitalia. Rectal: Deferred. Skin: Warm, dry. Intact. Extremities: 2+ radial pulses bilaterally. No lower extremity edema. Neuro: Sedated. laboratory and microbiology Laboratory Tests 09/20/24 03:40 Test 09/20/24 03:40 Range/Units Serum Glucose 110 H 74-106 mg/dL Assessment/Plan Impression: Acute hypoxic respiratory failure Acute hypercarbic respiratory failure On mechanical ventilator Pleural effusions Atelectasis Morbid obesity with a BMI of 44.8 Pulmonary edema Acute exacerbation of COPD vs Asthma Elevated troponin Events: Remains on vent support On AC mode with RR 24, VT 600, PEEP 12, FIO2 60% Taper FiO2 as tolerated Sedated on Propofol, Versed, Fentanyl Off pressors, hemodynamically stable Continue bronchodilators Continue antibiotics Diurese w/ Lasix as tolerated Monitor renal function Monitor electrolytes. Supplement as necessary. Tube feeds for nutritional support Monitor WBC Pulmonary toileting Recommend trach/PEG for liberation from vent. 09/18/24 - S/p therapeutic bronchoscopy w/ RLL BAL. Mucous plugging cleared from L1-L3 and L6-L10 and R1-R3 and R6-R10 See separate procedure note for details 09/16/24 - S/p bronchoscopy w/ bronchoalveolar lavage, removed copious mucous plugs from RUL/RLL + FROYLAN. See separate procedure note for details. Labs and imaging reviewed. Rest of plan as noted below. Plan: s/p re-intubation, on mechanical ventilator On AC mode with RR 24, VT 600, PEEP 12, FIO2 60% Taper FiO2 as tolerated Sedated for vent synchrony Bronchodilators Steroids - completed Pressors if necessary for hemodynamic support. Titrate to keep MAP above 65 mmHg/SBP above 90 mmHg. F/u Echo to evaluate LVEF, RVSP and r/o valvular dysfunction. F/u Cardiology recommendations Plan for CTA of chest to r/o PE. Antibiotics. Zosyn/Vancomycin F/u cultures. Positive GPC in blood cultures - Follow up ID and sensitivities. Maintain euvolemia Monitor renal function due to Acute kidney injury. Monitor electrolytes. Supplement as necessary. Nutritional support. Accu-Cheks, ISS. Morbid obesity, complicates all care. Diet and lifestyle modifications for weight reduction recommended. GI/DVT prophylaxis. Condition: Critical Prognosis: Poor given multiple comorbidities. Rest of plan per hospitalist and other consultants. A total of 35 minutes of critical care time was spent reviewing the patient record, examining the patient, making a diagnostic and therapeutic plan, discussing this plan with the medical personnel, following up on diagnostic studies and following the patient for clinical stability excluding any and all procedures. At least 50% of this time was spent in direct, [id number] contact. Thank you ANAHI Montoya for allowing me to participate in this patient's care. Further recommendations will depend on patient's clinical course. Please do not hesitate to contact me if you have any questions or concerns. This medical document was created using an electronic medical record system with [employer] dictation system. Although this document has been carefully reviewed, there may still be some phonetic and typographical errors. These areas are purely typographical due to imperfections of the software programs, and do not reflect any compromise in the patient's medical care. Dietary Evaluation Review Recommendations by RD: Increase Calorie Intake Comments: 1. Increase TF as tolerated to goal rate to 50 mL/hr.Goal rate will provide ~ 87 daily estimated energy needs and ~60% daily estimated protein needs. 2. Advance to CCHO 60g diet pending HYDROGEN [employer]RA[employer]PERATOR approval when medically feasible. 3. Continue to monitor patient's weight and labs. Expected Outcomes/Goals: 1. labs to improve 2. diet to advance 3. continue plan of care 4. f/u in 2-3 days Plan discussed with: Other (FERNANDO Pfeiffer) Critical Care Time(min): 35 LIZ GUDINO MD Sep 20, 2024 18:35
[2024-09-21] VITALS (102 sets, daily range): BP systolic 90–133; BP diastolic 41–85; PULSE 90–112; RESP 12–30; TEMP 99.5–100.8; O2SAT 91–97
--- NOTE | 2024-09-21 04:50 | DVH ---
CHEST RADIOGRAPH Indication: pna Technique: Single frontal view of the chest was obtained COMPARISON: XY CHEST PORTABLE on DOS: 09/20/24, XY CHEST PORTABLE on DOS: 09/19/24, XY CHEST PORTABLE o n DOS: 09/18/24, XY CHEST PORTABLE on DOS: 09/17/24, XY CHEST PORTABLE on DOS: 09/16/24, XY CHEST PORTABL E on DOS: 09/20/24 FINDINGS: Lines and Tubes: Endotracheal tube, enteric catheter and right central venous catheter in satisfactor y position. Lungs: Congestion Pleura: No effusion. No pneumothorax. Cardiomediastinal contours: Unremarkable Bones: Unremarkable IMPRESSION: Lines and tubes in satisfactory position. No significant interval change.
--- NOTE | 2024-09-21 08:56 | DVHPN2 ---
Subjective Intubated and chemically sedated. Reviewed: Care Plan, H&P, Labs, Medications, Previous Orders, Radiology, Other (Consultants) Changes from previous H/P or p: No Changes General: Per HPI Objective Vitals Vital Signs Date Time Temp Pulse Resp B/P (MAP) Pulse Ox O2 Delivery O2 Flow Rate FiO2 09/21/24 08:02 95 24 109/63 (78) 93 60 09/21/24 06:12 100.2 09/21/24 06:00 Mechanical Ventilator+ Intake/Output Intake and Output 09/21/24 07:00 Intake Total 2002.205 ml Output Total 2550 ml Balance -547.795 ml Intake Oral 460 ml IV Total 1542.205 ml Output Urine Total 2550 ml General Appearance: moderate distress, Other (intubated and sedated ) HEENT: Atraumatic, Other (Pinpoint pupils) Lungs: Clear to auscultation, Other (On the vent) Cardiovascular: Regular rate, Normal S1, Normal S2 Abdomen: Normal bowel sounds, Soft Musculoskeletal: Weak motor strength RUE, Weak motor strength LUE, Weak motor strength RLE, Weak motor strength LLE Extremities: Other (1+ bilateral lower extremities edema) Skin: Dry, Intact Psych/Mental Status: Other (intubated and sedated ) Medications Current Medications Medications Dose Ordered Sig/Felicitas Route Start Time Stop Time Status Last Admin Dose Admin Ondansetron HCl 4 mg Q4HP PRN IV 09/01/24 10:30 Nitroglycerin 0.4 mg Q5MINP PRN SL 09/01/24 10:30 Piperacillin Sod/ Tazobactam Sod 100 ml @ 25 mls/hr Q6HR IV 09/01/24 18:00 UNV Furosemide 40 mg DAILY IV 09/03/24 10:00 09/20/24 09:58 40 MG Pantoprazole Sodium 40 mg DAILY IV 09/04/24 10:00 09/20/24 09:57 40 MG Enoxaparin Sodium 40 mg DAILY SC 09/04/24 10:00 09/20/24 09:58 40 MG Budesonide 0.5 mg BID NEB 09/04/24 10:00 09/21/24 05:52 0.5 MG Insulin Glargine 15 units DAILY@1000 SC 09/07/24 10:00 09/17/24 08:20 15 UNITS Acetaminophen 650 mg Q6HP PRN PO 09/09/24 10:45 09/21/24 05:12 650 MG Diagnostic Test (Pha) 1 strip Q6HR 09/10/24 12:00 09/21/24 06:26 1 STRIP Insulin Human Regular Q6HR SC 09/10/24 12:00 09/19/24 10:30 2 UNITS Dextrose 50 ml UD PRN IV 09/10/24 08:15 Azithromycin 250 ml @ 125 mls/hr DAILY IV 09/12/24 10:00 09/20/24 09:59 125 MLS/HR Ipratropium [place] 0.5 mg Q6HR NEB 09/13/24 12:00 09/21/24 05:52 0.5 MG Levalbuterol HCl 1.25 mg Q6HR NEB 09/13/24 12:00 09/21/24 05:53 1.25 MG Risperidone 2 mg DAILY PO 09/14/24 10:00 09/20/24 09:57 2 MG Lorazepam 0.5 mg Q8HP PRN IV 09/15/24 13:15 09/15/24 20:27 0.5 MG Propofol 100 ml @ 3.951 mls/ hr Q24H IV 09/16/24 09:00 09/21/24 05:00 19.755 MLS/HR Midazolam HCl 50 ml @ 1 mls/hr Q24H IV 09/16/24 09:00 09/21/24 06:25 13 MLS/HR Fentanyl Citrate 250 ml @ 2.5 mls/hr Q24H IV 09/16/24 09:00 09/21/24 04:59 22.5 MLS/HR Nystatin 5 ml QID MT 09/16/24 12:00 09/21/24 05:00 5 ML Meropenem 50 ml @ 17 mls/hr Q8HR IV 09/16/24 14:00 09/21/24 05:00 17 MLS/HR Fluconazole 100 ml @ 100 mls/hr DAILY IV 09/17/24 10:00 09/20/24 09:58 100 MLS/HR Norepinephrine Bitartrate 32 mg/ Sodium Chloride 250 ml @ 0.938 mls/ hr Q24H IV 09/16/24 17:45 09/16/24 20:19 6.563 MLS/HR Acetylcysteine 100 mg Q6HR NEB 09/17/24 12:00 09/21/24 05:53 100 MG Purified Water 200 ml Q6HR GT 09/18/24 12:00 09/21/24 05:13 200 ML Vancomycin HCl 0 ml @ 0 mls/hr UD IV 09/19/24 06:45 Vancomycin HCl 250 ml @ 200 mls/hr Q8H IV 09/19/24 15:00 09/20/24 23:45 200 MLS/HR Enteral Nutritional Formula 1,000 ml 50ML/HR GT 09/21/24 08:30 UNV Laboratory Results Laboratory Tests 09/20/24 03:40 Blood Gas Results Test 09/21/24 07:24 Arterial Blood pH 7.388 (7.350-7.450) FiO2 % 60.0 Microbiology Microbiology Date/Time Source Procedure Growth Status 09/18/24 13:26 Bronchial Washings Gram Stain - Final Complete 09/18/24 13:26 Bronchial Washings Respiratory Culture - Final Complete 09/16/24 15:15 Urine - [place] Urine Culture - Final Complete 09/16/24 15:13 Other Endotracheal Wash Gram Stain - Final Complete 09/16/24 15:13 Respiratory Culture - Final Methicillin Resistant S.aureus Complete 09/12/24 04:15 Blood Blood Culture - Final Staph hominis subsp homins Complete Labs and/or images reviewed: Labs reviewed by me, Image(s) reviewed by me Assessment/Plan Assessment/Plan Impression: -acute hypoxic and hypercarbic respiratory failure with failure of noninvasive positive pressure ventilation -community-acquired pneumonia, MRSA -morbid obesity -nicotine dependence -sepsis -history of schizophrenia -NSTEMI type 2 Plan: Events: No events overnight. Same fio2 and Peep requirement of 60% +12 -continue tube feeding -continue regular insulin sliding scale, Lantus 15 units daily -pulmonology consultation: Continue recommendations -Change antibiotic therapy to meropenem, Diflucan, add vancomycin -Solu-Medrol to 40 mg daily -burrell cultures: MRSA of the sputum. -continue DVT prophylaxis -PUD prophylaxis -continue bronchodilators, Pulmicort, Mucomyst -Plan for catarino placement and Central line exchange -repeat labs, chest x-ray, ABG in a.m. Critical care time spent with patient discussing and formulating plan of care: 40 minutes. This does not include time spent performing procedures. This medical document was created using an electronic medical record system with [employer] dictation system. Although this document has been carefully reviewed, there may still be some phonetic and typographical errors. These areas are purely typographical due to imperfections of the software programs, and do not reflect any compromise in the patient's medical care. Plan discussed with: Patient, Other (RN) My Orders Orders - ZUHAIR GUILLORY NP Procedure Category Date Status Time Vancomycin,Trough LAB 09/21/24 Logged 06:00 Vancomycin Per RAMANA 09/21/24 In Process Pharmacy Protoc 06:00 Nutritional PHA 09/21/24 Logged Supplements (Jevity 08:30 Complete Blood Count LAB 09/22/24 Verified 05:00 Complete Blood Count LAB 09/23/24 Verified 05:00 Complete Blood Count LAB 09/24/24 Verified 05:00 Complete Blood Count LAB 09/25/24 Verified 05:00 Complete Blood Count LAB 09/26/24 Verified 05:00 Basic Metabolic Panel LAB 09/22/24 Verified 05:00 Basic Metabolic Panel LAB 09/23/24 Verified 05:00 Basic Metabolic Panel LAB 09/24/24 Verified 05:00 Basic Metabolic Panel LAB 09/25/24 Verified 05:00 Basic Metabolic Panel LAB 09/26/24 Verified 05:00 Date of Service: Sep 21, 2024 Billing Provider: ZUHAIR GUILLORY NP Common Visit Codes: [id number] CARE 30-74 MIN ZUHAIR GUILLORY NP Sep 21, 2024 08:56
[2024-09-21 10:41] LABS: Anion Gap 9 (5-15); Calcium 9.8 mg/dL (8.7-10.4); Carbon Dioxide 28 mmol/L (20-31)
[2024-09-21 10:46] LABS: BUN/Creatinine Ratio 25.9 (10.0-20.0); Blood Urea Nitrogen 15 mg/dL (9-23); Glucose 101 mg/dL (74-106)
[2024-09-21 10:50] LABS: Chloride 109 mmol/L (98-107); Sodium 146 mmol/L (136-145)
[2024-09-21 12:42] LABS: Basophils # (auto) 0 10 ^3/uL (0-0.2); Basophils % (auto) 0.4 % (0.0-2.0); Eosinophils # (auto) 0.2 10 ^3/uL (0-0.8); Eosinophils % (auto) 2.4 % (0.0-7.0); Hematocrit 37.6 % (41.0-53.0); Hemoglobin 12.2 g/dL (13.5-17.5); Lymphocytes # (auto) 1.4 10 ^3/uL (0.4-5.4); Lymphocytes % (auto) 14.2 % (10.0-50.0); Mean Corpuscular Hemoglobin 30.4 pg (28.0-32.0); Mean Corpuscular Hgb Conc. 32.5 g/dL (32.0-36.0); Mean Corpuscular Volume 93.5 fL (80.0-100.0); Monocytes # (auto) 0.7 10 ^3/uL (0-1.3); Neutrophils # (auto) 7.4 10 ^3/uL (1.6-8.6); Nucleated Red Blood Cells % 0.1 %; Platelet Count (auto) 278 10^3/uL (140-450); Red Blood Cells 4.02 10^6/uL (4.5-5.90); Red Cell Distribution Width 14.4 % (11.8-14.3); White Blood Cell 9.8 10^3/uL (4.4-10.8)
--- NOTE | 2024-09-21 21:39 | DVHPN2 ---
Progress Note - Dictate Date Seen: Sep 21, 2024 Medical Necessity Reason Pt with a Central, PICC or Fol: Yes The following are medically ne: Teague Catheter Reason for teague catheter: Strict I&O Subjective Patient seen and examined at bedside. Sedated, intubated on mechanical ventilator. Overnight events reviewed. vital signs Vital Sign Date Time Temp Pulse Resp B/P (MAP) Pulse Ox O2 Delivery O2 Flow Rate FiO2 09/21/24 20:30 102 24 121/72 (88) 95 60 09/21/24 20:26 100.8 09/21/24 18:58 Mechanical Ventilator+ Total Intake and Output 09/20/24 09/20/24 09/21/24 15:00 23:00 07:00 Intake Total 442.040 ml 462.765 ml 1152.675 ml Output Total 1900 ml 650 ml Balance 442.040 ml -1437.235 ml 502.675 ml medications Current Medications Medications Dose Ordered Sig/Felicitas Route Start Time Stop Time Status Last Admin Dose Admin Ondansetron HCl 4 mg Q4HP PRN IV 09/01/24 10:30 Nitroglycerin 0.4 mg Q5MINP PRN SL 09/01/24 10:30 Piperacillin Sod/ Tazobactam Sod 100 ml @ 25 mls/hr Q6HR IV 09/01/24 18:00 UNV Furosemide 40 mg DAILY IV 09/03/24 10:00 09/21/24 08:55 40 MG Pantoprazole Sodium 40 mg DAILY IV 09/04/24 10:00 09/21/24 08:55 40 MG Enoxaparin Sodium 40 mg DAILY SC 09/04/24 10:00 09/21/24 08:54 40 MG Budesonide 0.5 mg BID NEB 09/04/24 10:00 09/21/24 18:58 0.5 MG Insulin Glargine 15 units DAILY@1000 SC 09/07/24 10:00 09/21/24 08:54 15 UNITS Acetaminophen 650 mg Q6HP PRN PO 09/09/24 10:45 09/21/24 20:26 650 MG Diagnostic Test (Pha) 1 strip Q6HR 09/10/24 12:00 09/21/24 18:26 1 STRIP Insulin Human Regular Q6HR SC 09/10/24 12:00 09/19/24 10:30 2 UNITS Dextrose 50 ml UD PRN IV 09/10/24 08:15 Azithromycin 250 ml @ 125 mls/hr DAILY IV 09/12/24 10:00 09/21/24 08:51 125 MLS/HR Ipratropium [place] 0.5 mg Q6HR NEB 09/13/24 12:00 09/21/24 18:58 0.5 MG Levalbuterol HCl 1.25 mg Q6HR NEB 09/13/24 12:00 09/21/24 18:58 1.25 MG Risperidone 2 mg DAILY PO 09/14/24 10:00 09/21/24 08:51 2 MG Lorazepam 0.5 mg Q8HP PRN IV 09/15/24 13:15 09/15/24 20:27 0.5 MG Propofol 100 ml @ 3.951 mls/ hr Q24H IV 09/16/24 09:00 09/21/24 19:57 19.755 MLS/HR Midazolam HCl 50 ml @ 1 mls/hr Q24H IV 09/16/24 09:00 09/21/24 19:33 13 MLS/HR Fentanyl Citrate 250 ml @ 2.5 mls/hr Q24H IV 09/16/24 09:00 09/21/24 16:12 22.5 MLS/HR Nystatin 5 ml QID MT 09/16/24 12:00 09/21/24 18:26 5 ML Meropenem 50 ml @ 17 mls/hr Q8HR IV 09/16/24 14:00 09/21/24 14:31 17 MLS/HR Fluconazole 100 ml @ 100 mls/hr DAILY IV 09/17/24 10:00 09/21/24 08:49 100 MLS/HR Norepinephrine Bitartrate 32 mg/ Sodium Chloride 250 ml @ 0.938 mls/ hr Q24H IV 09/16/24 17:45 09/16/24 20:19 6.563 MLS/HR Acetylcysteine 100 mg Q6HR NEB 09/17/24 12:00 09/21/24 18:58 100 MG Purified Water 200 ml Q6HR GT 09/18/24 12:00 09/21/24 18:26 200 ML Vancomycin HCl 0 ml @ 0 mls/hr UD IV 09/19/24 06:45 Enteral Nutritional Formula 1,000 ml 50ML/HR GT 09/21/24 08:30 objective Gen.: Patient lying in bed in medical ICU. Sedated, intubated on mechanical ventilator. Head: Normocephalic, atraumatic. Eyes: PERRLA. Ears: Normal external anatomy. Throat: Endotracheal tube and orogastric tube in place. Neck: Supple, trachea midline. Chest: Transmitted breath sounds bilaterally. Decreased air entry bilaterally. No wheezing. Bibasilar crackles. Cardiovascular: Positive S1, positive S2. Regular rate and rhythm. Abdomen: Positive bowel sounds in all 4 quadrants. Soft, nontender, nondistended. : Teague in place. Normal external genitalia. Rectal: Deferred. Skin: Warm, dry. Intact. Extremities: 2+ radial pulses bilaterally. No lower extremity edema. Neuro: Sedated. laboratory and microbiology Laboratory Tests 09/21/24 11:50 09/21/24 08:56 Test 09/21/24 08:56 Range/Units Serum Glucose 101 74-106 mg/dL Assessment/Plan Impression: Acute hypoxic respiratory failure Acute hypercarbic respiratory failure On mechanical ventilator Pleural effusions Atelectasis Morbid obesity with a BMI of 44.8 Pulmonary edema Acute exacerbation of COPD vs Asthma Elevated troponin Events: Remains on vent support On AC mode with RR 24, VT 600, PEEP 12, FIO2 60% Taper FiO2 as tolerated Sedated on Propofol, Fentanyl Off pressors, hemodynamically stable Continue bronchodilators Continue antibiotics Diurese w/ Lasix as tolerated Monitor renal function Monitor electrolytes. Supplement as necessary. Tube feeds for nutritional support Monitor WBC Pulmonary toileting Recommend trach + PEG for liberation from vent once FiO2 and PEEP improves. 09/18/24 - S/p therapeutic bronchoscopy w/ RLL BAL. Mucous plugging cleared from L1-L3 and L6-L10 and R1-R3 and R6-R10 See separate procedure note for details 09/16/24 - S/p bronchoscopy w/ bronchoalveolar lavage, removed copious mucous plugs from RUL/RLL + FROYLAN. See separate procedure note for details. Labs and imaging reviewed. Rest of plan as noted below. Plan: s/p re-intubation, on mechanical ventilator On AC mode with RR 24, VT 600, PEEP 12, FIO2 60% Taper FiO2 as tolerated Sedated for vent synchrony Bronchodilators Steroids - completed Pressors if necessary for hemodynamic support. Titrate to keep MAP above 65 mmHg/SBP above 90 mmHg. F/u Echo to evaluate LVEF, RVSP and r/o valvular dysfunction. F/u Cardiology recommendations Plan for CTA of chest to r/o PE. Antibiotics. Zosyn/Vancomycin F/u cultures. Positive GPC in blood cultures - Follow up ID and sensitivities. Maintain euvolemia Monitor renal function due to Acute kidney injury. Monitor electrolytes. Supplement as necessary. Nutritional support. Accu-Cheks, ISS. Morbid obesity, complicates all care. Diet and lifestyle modifications for weight reduction recommended. GI/DVT prophylaxis. Condition: Critical Prognosis: Poor given multiple comorbidities. Rest of plan per hospitalist and other consultants. A total of 35 minutes of critical care time was spent reviewing the patient record, examining the patient, making a diagnostic and therapeutic plan, discussing this plan with the medical personnel, following up on diagnostic studies and following the patient for clinical stability excluding any and all procedures. At least 50% of this time was spent in direct, [id number] contact. Thank you ANAHI Montoya for allowing me to participate in this patient's care. Further recommendations will depend on patient's clinical course. Please do not hesitate to contact me if you have any questions or concerns. This medical document was created using an electronic medical record system with [employer] dictation system. Although this document has been carefully reviewed, there may still be some phonetic and typographical errors. These areas are purely typographical due to imperfections of the software programs, and do not reflect any compromise in the patient's medical care. Dietary Evaluation Review Recommendations by RD: Increase Calorie Intake Comments: 1. Increase TF as tolerated to goal rate to 50 mL/hr.Goal rate will provide ~ 87 daily estimated energy needs and ~60% daily estimated protein needs. 2. Advance to CCHO 60g diet pending MANAGER LAW approval when medically feasible. 3. Continue to monitor patient's weight and labs. Expected Outcomes/Goals: 1. labs to improve 2. diet to advance 3. continue plan of care 4. f/u in 2-3 days Plan discussed with: Other (FERNANDO Bolivar) Critical Care Time(min): 35 LIZ GUDINO MD Sep 21, 2024 21:39
[2024-09-22] VITALS (107 sets, daily range): BP systolic 100–143; BP diastolic 54–104; PULSE 86–107; RESP 16–25; TEMP 98.8–100.8; O2SAT 89–97
[2024-09-22 04:01] LABS: Basophils # (auto) 0.1 10 ^3/uL (0-0.2); Basophils % (auto) 0.8 % (0.0-2.0); Eosinophils # (auto) 0.2 10 ^3/uL (0-0.8); Eosinophils % (auto) 2.5 % (0.0-7.0); Hematocrit 38.5 % (41.0-53.0); Hemoglobin 12.6 g/dL (13.5-17.5); Lymphocytes # (auto) 1.5 10 ^3/uL (0.4-5.4); Lymphocytes % (auto) 14.7 % (10.0-50.0); Mean Corpuscular Hemoglobin 30.8 pg (28.0-32.0); Mean Corpuscular Hgb Conc. 32.8 g/dL (32.0-36.0); Mean Corpuscular Volume 93.8 fL (80.0-100.0); Monocytes % (auto) 10.4 % (0.0-12.0); Neutrophils # (auto) 7.1 10 ^3/uL (1.6-8.6); Neutrophils % (auto) 71.6 % (37.0-80.0); Nucleated Red Blood Cells % 0.2 %; Platelet Count (auto) 276 10^3/uL (140-450); Red Cell Distribution Width 14.7 % (11.8-14.3); White Blood Cell 9.9 10^3/uL (4.4-10.8)
[2024-09-22 04:14] LABS: Anion Gap 5 (5-15); Potassium 4.1 mmol/L (3.5-5.1)
[2024-09-22 04:15] LABS: Calcium 10.3 mg/dL (8.7-10.4)
[2024-09-22 04:20] LABS: BUN/Creatinine Ratio 24.3 (10.0-20.0); Blood Urea Nitrogen 17 mg/dL (9-23); Glucose 99 mg/dL (74-106)
[2024-09-22 04:23] LABS: Carbon Dioxide 32 mmol/L (20-31); Chloride 108 mmol/L (98-107); Sodium 145 mmol/L (136-145)
--- NOTE | 2024-09-22 05:22 | DVH ---
CHEST RADIOGRAPH Indication: INTUBATED Technique: Single frontal view of the chest was obtained Comparison: XY CHEST PORTABLE on DOS: 09/21/24, XY CHEST PORTABLE on DOS: 09/20/24, XY CHEST PORTABLE o n DOS: 09/19/24, XY CHEST PORTABLE on DOS: 09/18/24, XY CHEST PORTABLE on DOS: 09/17/24, XY CHEST PORTAB LE on DOS: 09/21/24 FINDINGS: Lines and Tubes: Endotracheal tube, enteric catheter and right central venous catheter in satisfactor y position. Lungs: Congestion Pleura: No effusion. No pneumothorax. Cardiomediastinal contours: Unremarkable Bones: Unremarkable IMPRESSION: 1. Lines and tubes in satisfactory position. No significant interval change.
[2024-09-22 08:05] LABS: Base Excess 3.2 mmol/L (-2.0-3.0)
--- NOTE | 2024-09-22 08:32 | DVHPN2 ---
Subjective Intubated and chemically sedated. Reviewed: Care Plan, H&P, Labs, Medications, Previous Orders, Radiology, Other (Consultants) Changes from previous H/P or p: No Changes General: Per HPI Objective Vitals Vital Signs Date Time Temp Pulse Resp B/P (MAP) Pulse Ox O2 Delivery O2 Flow Rate FiO2 09/22/24 08:12 100 24 129/75 (93) 90 65 09/22/24 07:45 100.2 212.4 09/22/24 06:00 Mechanical Ventilator+ Intake/Output Intake and Output 09/22/24 07:00 Intake Total 2580.905 ml Output Total 2800 ml Balance -219.095 ml Intake Oral 860 ml IV Total 1720.905 ml Output Urine Total 2800 ml General Appearance: moderate distress, Other (intubated and sedated ) HEENT: Atraumatic, Other (Pinpoint pupils) Lungs: Clear to auscultation, Other (On the vent) Cardiovascular: Regular rate, Normal S1, Normal S2 Abdomen: Normal bowel sounds, Soft Musculoskeletal: Weak motor strength RUE, Weak motor strength LUE, Weak motor strength RLE, Weak motor strength LLE Extremities: Other (1+ bilateral lower extremities edema) Skin: Dry, Intact Psych/Mental Status: Other (intubated and sedated ) Medications Current Medications Medications Dose Ordered Sig/Felicitas Route Start Time Stop Time Status Last Admin Dose Admin Ondansetron HCl 4 mg Q4HP PRN IV 09/01/24 10:30 Nitroglycerin 0.4 mg Q5MINP PRN SL 09/01/24 10:30 Piperacillin Sod/ Tazobactam Sod 100 ml @ 25 mls/hr Q6HR IV 09/01/24 18:00 UNV Furosemide 40 mg DAILY IV 09/03/24 10:00 09/21/24 08:55 40 MG Pantoprazole Sodium 40 mg DAILY IV 09/04/24 10:00 09/21/24 08:55 40 MG Enoxaparin Sodium 40 mg DAILY SC 09/04/24 10:00 09/21/24 08:54 40 MG Budesonide 0.5 mg BID NEB 09/04/24 10:00 09/21/24 18:58 0.5 MG Insulin Glargine 15 units DAILY@1000 SC 09/07/24 10:00 09/21/24 08:54 15 UNITS Acetaminophen 650 mg Q6HP PRN PO 09/09/24 10:45 09/21/24 20:26 650 MG Diagnostic Test (Pha) 1 strip Q6HR 09/10/24 12:00 09/22/24 05:50 1 STRIP Insulin Human Regular Q6HR SC 09/10/24 12:00 09/19/24 10:30 2 UNITS Dextrose 50 ml UD PRN IV 09/10/24 08:15 Azithromycin 250 ml @ 125 mls/hr DAILY IV 09/12/24 10:00 09/21/24 08:51 125 MLS/HR Ipratropium [place] 0.5 mg Q6HR NEB 09/13/24 12:00 09/22/24 00:00 0.5 MG Levalbuterol HCl 1.25 mg Q6HR NEB 09/13/24 12:00 09/22/24 00:00 1.25 MG Risperidone 2 mg DAILY PO 09/14/24 10:00 09/21/24 08:51 2 MG Lorazepam 0.5 mg Q8HP PRN IV 09/15/24 13:15 09/15/24 20:27 0.5 MG Propofol 100 ml @ 3.951 mls/ hr Q24H IV 09/16/24 09:00 09/22/24 05:50 19.755 MLS/HR Midazolam HCl 50 ml @ 1 mls/hr Q24H IV 09/16/24 09:00 09/22/24 05:32 13 MLS/HR Fentanyl Citrate 250 ml @ 2.5 mls/hr Q24H IV 09/16/24 09:00 09/22/24 02:16 22.5 MLS/HR Nystatin 5 ml QID MT 09/16/24 12:00 09/22/24 05:49 5 ML Meropenem 50 ml @ 17 mls/hr Q8HR IV 09/16/24 14:00 09/22/24 05:49 17 MLS/HR Fluconazole 100 ml @ 100 mls/hr DAILY IV 09/17/24 10:00 09/21/24 08:49 100 MLS/HR Norepinephrine Bitartrate 32 mg/ Sodium Chloride 250 ml @ 0.938 mls/ hr Q24H IV 09/16/24 17:45 09/16/24 20:19 6.563 MLS/HR Acetylcysteine 100 mg Q6HR NEB 09/17/24 12:00 09/22/24 00:01 100 MG Purified Water 200 ml Q6HR GT 09/18/24 12:00 09/22/24 05:49 200 ML Vancomycin HCl 0 ml @ 0 mls/hr UD IV 09/19/24 06:45 Enteral Nutritional Formula 1,000 ml 50ML/HR GT 09/21/24 08:30 Laboratory Results Laboratory Tests 09/22/24 03:57 Chemistry Test 09/21/24 08:56 09/22/24 03:57 Calcium Level 9.8 mg/dL (8.7-10.4) 10.3 mg/dL (8.7-10.4) Blood Gas Results Test 09/22/24 07:19 Arterial Blood pH 7.408 (7.350-7.450) FiO2 % 60.0 Microbiology Microbiology Date/Time Source Procedure Growth Status 09/18/24 13:26 Bronchial Washings Gram Stain - Final Complete 09/18/24 13:26 Bronchial Washings Respiratory Culture - Final Complete 09/16/24 15:15 Urine - [place] Urine Culture - Final Complete 09/16/24 15:13 Other Endotracheal Wash Gram Stain - Final Complete 09/16/24 15:13 Respiratory Culture - Final Methicillin Resistant S.aureus Complete 09/12/24 04:15 Blood Blood Culture - Final Staph hominis subsp homins Complete Labs and/or images reviewed: Labs reviewed by me, Image(s) reviewed by me Assessment/Plan Assessment/Plan Impression: -acute hypoxic and hypercarbic respiratory failure with failure of noninvasive positive pressure ventilation -community-acquired pneumonia, MRSA -morbid obesity -nicotine dependence -sepsis -history of schizophrenia -NSTEMI type 2 Plan: Events: No events overnight. Same fio2 and Peep requirement of 65% +12. Increased FiO2 requirements. Questionable aspiration from oral secretions. We will trial a dose of Robinul. -continue tube feeding -continue regular insulin sliding scale, Lantus 15 units daily -pulmonology consultation: Continue recommendations -Change antibiotic therapy to meropenem, Diflucan, vancomycin -Solu-Medrol to 40 mg daily -burrell cultures: MRSA of the sputum. -continue DVT prophylaxis -PUD prophylaxis -continue bronchodilators, Pulmicort, Mucomyst -Plan for catarino placement and Central line exchange -repeat labs, chest x-ray, ABG in a.m. Critical care time spent with patient discussing and formulating plan of care: 40 minutes. This does not include time spent performing procedures. This medical document was created using an electronic medical record system with [employer]ation system. Although this document has been carefully reviewed, there may still be some phonetic and typographical errors. These areas are purely typographical due to imperfections of the software programs, and do not reflect any compromise in the patient's medical care. Plan discussed with: Patient, Other (RN) My Orders Orders - ZUHAIR GUILLORY NP Procedure Category Date Status Time Chest Portable XY 09/22/24 Resulted 04:00 Date of Service: Sep 22, 2024 Billing Provider: ZUHAIR GUILLORY NP Common Visit Codes: 00548-[id number] CARE 30-74 MIN ZUHAIR GUILLORY NP Sep 22, 2024 08:32
[2024-09-22] MEDS: VANCOMYCIN 1.25GM/250ML 250 ML IV SCH (11:44)
[2024-09-22] MEDS: GLYCOPYRROLATE 0.2 MG/ML 1ML VIAL IV ONE (11:45)
--- NOTE | 2024-09-22 22:14 | DVHPN2 ---
Progress Note - Dictate Date Seen: Sep 22, 2024 Medical Necessity Reason Pt with a Central, PICC or Fol: Yes The following are medically ne: Teague Catheter Reason for teague catheter: Strict I&O Subjective Patient seen and examined at bedside. Sedated, intubated on mechanical ventilator. Overnight events reviewed. vital signs Vital Sign Date Time Temp Pulse Resp B/P (MAP) Pulse Ox O2 Delivery O2 Flow Rate FiO2 09/22/24 21:52 123/87 09/22/24 21:00 100.2 107 24 91 212.4 09/22/24 20:05 65 09/22/24 20:00 Mechanical Ventilator+ Total Intake and Output 09/21/24 09/21/24 09/22/24 15:00 23:00 07:00 Intake Total 809.040 ml 875.080 ml 969.040 ml Output Total 500 ml 2300 ml Balance 809.040 ml 375.080 ml -1330.960 ml medications Current Medications Medications Dose Ordered Sig/Felicitas Route Start Time Stop Time Status Last Admin Dose Admin Ondansetron HCl 4 mg Q4HP PRN IV 09/01/24 10:30 Nitroglycerin 0.4 mg Q5MINP PRN SL 09/01/24 10:30 Piperacillin Sod/ Tazobactam Sod 100 ml @ 25 mls/hr Q6HR IV 09/01/24 18:00 UNV Furosemide 40 mg DAILY IV 09/03/24 10:00 09/22/24 09:11 40 MG Pantoprazole Sodium 40 mg DAILY IV 09/04/24 10:00 09/22/24 09:11 40 MG Enoxaparin Sodium 40 mg DAILY SC 09/04/24 10:00 09/22/24 09:13 40 MG Budesonide 0.5 mg BID NEB 09/04/24 10:00 09/22/24 09:06 0.5 MG Insulin Glargine 15 units DAILY@1000 SC 09/07/24 10:00 09/22/24 10:00 15 UNITS Acetaminophen 650 mg Q6HP PRN PO 09/09/24 10:45 09/22/24 20:12 650 MG Diagnostic Test (Pha) 1 strip Q6HR 09/10/24 12:00 09/22/24 17:19 1 STRIP Insulin Human Regular Q6HR SC 09/10/24 12:00 09/19/24 10:30 2 UNITS Dextrose 50 ml UD PRN IV 09/10/24 08:15 Azithromycin 250 ml @ 125 mls/hr DAILY IV 09/12/24 10:00 09/22/24 09:13 125 MLS/HR Ipratropium [place] 0.5 mg Q6HR NEB 09/13/24 12:00 09/22/24 18:32 0.5 MG Levalbuterol HCl 1.25 mg Q6HR NEB 09/13/24 12:00 09/22/24 18:32 1.25 MG Risperidone 2 mg DAILY PO 09/14/24 10:00 09/22/24 09:12 2 MG Lorazepam 0.5 mg Q8HP PRN IV 09/15/24 13:15 09/15/24 20:27 0.5 MG Propofol 100 ml @ 3.951 mls/ hr Q24H IV 09/16/24 09:00 09/22/24 20:12 19.755 MLS/HR Midazolam HCl 50 ml @ 1 mls/hr Q24H IV 09/16/24 09:00 09/22/24 20:13 13 MLS/HR Fentanyl Citrate 250 ml @ 2.5 mls/hr Q24H IV 09/16/24 09:00 09/22/24 21:52 22.5 MLS/HR Nystatin 5 ml QID MT 09/16/24 12:00 09/22/24 21:36 5 ML Meropenem 50 ml @ 17 mls/hr Q8HR IV 09/16/24 14:00 09/22/24 14:25 17 MLS/HR Fluconazole 100 ml @ 100 mls/hr DAILY IV 09/17/24 10:00 09/22/24 09:13 100 MLS/HR Norepinephrine Bitartrate 32 mg/ Sodium Chloride 250 ml @ 0.938 mls/ hr Q24H IV 09/16/24 17:45 09/16/24 20:19 6.563 MLS/HR Acetylcysteine 100 mg Q6HR NEB 09/17/24 12:00 09/22/24 18:33 100 MG Purified Water 200 ml Q6HR GT 09/18/24 12:00 09/22/24 17:20 200 ML Vancomycin HCl 0 ml @ 0 mls/hr UD IV 09/19/24 06:45 Enteral Nutritional Formula 1,000 ml 50ML/HR GT 09/21/24 08:30 Vancomycin HCl 250 ml @ 200 mls/hr Q10H IV 09/22/24 11:00 09/22/24 21:35 200 MLS/HR objective Gen.: Patient lying in bed in medical ICU. Sedated, intubated on mechanical ventilator. Head: Normocephalic, atraumatic. Eyes: PERRLA. Ears: Normal external anatomy. Throat: Endotracheal tube and orogastric tube in place. Neck: Supple, trachea midline. Chest: Transmitted breath sounds bilaterally. Decreased air entry bilaterally. No wheezing. Bibasilar crackles. Cardiovascular: Positive S1, positive S2. Regular rate and rhythm. Abdomen: Positive bowel sounds in all 4 quadrants. Soft, nontender, nondistended. : Teague in place. Normal external genitalia. Rectal: Deferred. Skin: Warm, dry. Intact. Extremities: 2+ radial pulses bilaterally. No lower extremity edema. Neuro: Sedated. laboratory and microbiology Laboratory Tests 09/22/24 03:57 Test 09/22/24 03:57 Range/Units Serum Glucose 99 74-106 mg/dL Assessment/Plan Impression: Acute hypoxic respiratory failure Acute hypercarbic respiratory failure On mechanical ventilator Pleural effusions Atelectasis Morbid obesity with a BMI of 44.8 Pulmonary edema Acute exacerbation of COPD vs Asthma Elevated troponin Events: Remains on vent support On AC mode with RR 24, VT 600, PEEP 12, FIO2 60 -->65% Taper FiO2 as tolerated Remains on high PEEP + FiO2 requirements Sedated on Propofol, Fentanyl, Versed Off pressors, hemodynamically stable Continue bronchodilators Continue antibiotics Diurese w/ Lasix as tolerated Monitor renal function Monitor electrolytes. Supplement as necessary. Tube feeds for nutritional support Monitor WBC Pulmonary toileting Taper FiO2 as tolerated Recommend trach + PEG for liberation from vent once FiO2 and PEEP requirements improved. 09/18/24 - S/p therapeutic bronchoscopy w/ RLL BAL. Mucous plugging cleared from L1-L3 and L6-L10 and R1-R3 and R6-R10 See separate procedure note for details 09/16/24 - S/p bronchoscopy w/ bronchoalveolar lavage, removed copious mucous plugs from RUL/RLL + FROYLAN. See separate procedure note for details. Labs and imaging reviewed. Rest of plan as noted below. Plan: s/p re-intubation, on mechanical ventilator On AC mode with RR 24, VT 600, PEEP 12, FIO2 65% Taper FiO2 as tolerated Sedated for vent synchrony Bronchodilators Steroids - completed Pressors if necessary for hemodynamic support. Titrate to keep MAP above 65 mmHg/SBP above 90 mmHg. F/u Echo to evaluate LVEF, RVSP and r/o valvular dysfunction. F/u Cardiology recommendations Plan for CTA of chest to r/o PE. Antibiotics. Zosyn/Vancomycin F/u cultures. Positive GPC in blood cultures - Follow up ID and sensitivities. Maintain euvolemia Monitor renal function due to Acute kidney injury. Monitor electrolytes. Supplement as necessary. Nutritional support. Accu-Cheks, ISS. Morbid obesity, complicates all care. Diet and lifestyle modifications for weight reduction recommended. GI/DVT prophylaxis. Condition: Critical Prognosis: Poor given multiple comorbidities. Rest of plan per hospitalist and other consultants. A total of 35 minutes of critical care time was spent reviewing the patient record, examining the patient, making a diagnostic and therapeutic plan, discussing this plan with the medical personnel, following up on diagnostic studies and following the patient for clinical stability excluding any and all procedures. At least 50% of this time was spent in direct, [id number] contact. Thank you ANAHI Montoya for allowing me to participate in this patient's care. Further recommendations will depend on patient's clinical course. Please do not hesitate to contact me if you have any questions or concerns. This medical document was created using an electronic medical record system with [employer] dictation system. Although this document has been carefully reviewed, there may still be some phonetic and typographical errors. These areas are purely typographical due to imperfections of the software programs, and do not reflect any compromise in the patient's medical care. Dietary Evaluation Review Recommendations by RD: Increase Calorie Intake Comments: 1. Increase TF as tolerated to goal rate to 50 mL/hr.Goal rate will provide ~ 87 daily estimated energy needs and ~60% daily estimated protein needs. 2. Advance to CCHO 60g diet pending ACCOUNT [employer]PER[employer] approval when medically feasible. 3. Continue to monitor patient's weight and labs. Expected Outcomes/Goals: 1. labs to improve 2. diet to advance 3. continue plan of care 4. f/u in 2-3 days Plan discussed with: Other (FERNANDO Fatima) Critical Care Time(min): 35 LIZ GUDINO MD Sep 22, 2024 22:14
[2024-09-22] MEDS: Jevity 1.2 Cal/Fiber 1 Liter GT SCH (23:22)
[2024-09-23] VITALS (103 sets, daily range): BP systolic 89–150; BP diastolic 42–93; PULSE 81–114; RESP 10–41; TEMP 98–100.4; O2SAT 89–98
[2024-09-23 04:14] LABS: Basophils # (auto) 0 10 ^3/uL (0-0.2); Basophils % (auto) 0.5 % (0.0-2.0); Eosinophils # (auto) 0.3 10 ^3/uL (0-0.8); Eosinophils % (auto) 3.4 % (0.0-7.0); Hematocrit 38.3 % (41.0-53.0); Hemoglobin 12.4 g/dL (13.5-17.5); Lymphocytes # (auto) 1.4 10 ^3/uL (0.4-5.4); Lymphocytes % (auto) 16.4 % (10.0-50.0); Mean Corpuscular Hemoglobin 30.3 pg (28.0-32.0); Mean Corpuscular Hgb Conc. 32.2 g/dL (32.0-36.0); Mean Corpuscular Volume 94.1 fL (80.0-100.0); Monocytes # (auto) 0.8 10 ^3/uL (0-1.3); Monocytes % (auto) 9.1 % (0.0-12.0); Neutrophils # (auto) 5.8 10 ^3/uL (1.6-8.6); Neutrophils % (auto) 70.6 % (37.0-80.0); Platelet Count (auto) 308 10^3/uL (140-450); Red Blood Cells 4.07 10^6/uL (4.5-5.90); Red Cell Distribution Width 14.6 % (11.8-14.3); White Blood Cell 8.3 10^3/uL (4.4-10.8)
[2024-09-23 04:28] LABS: Chloride 106 mmol/L (98-107); Potassium 3.8 mmol/L (3.5-5.1); Sodium 145 mmol/L (136-145)
[2024-09-23 04:29] LABS: Anion Gap 10 (5-15); Carbon Dioxide 29 mmol/L (20-31)
[2024-09-23 04:30] LABS: Calcium 10.4 mg/dL (8.7-10.4)
[2024-09-23 04:34] LABS: BUN/Creatinine Ratio 27.6 (10.0-20.0); Blood Urea Nitrogen 16 mg/dL (9-23); Glucose 92 mg/dL (74-106)
--- NOTE | 2024-09-23 05:08 | DVH ---
CHEST RADIOGRAPH Indication: PROTOCOL Technique: Single frontal view of the chest was obtained Comparison: XY CHEST PORTABLE on DOS: 09/22/24 FINDINGS: Lines and Tubes: The endotracheal tube terminates 5.4 cm above the alf. Right central venous cath eter terminates in the superior cavoatrial junction. The enteric tube terminates in the stomach. Lungs: Diffuse bilateral airspace disease. Pleura: Bilateral pleural effusions. No pneumothorax. Cardiomediastinal contours: Stable. Bones: No acute osseous abnormality. IMPRESSION: 1. Stable position of the support lines and tubes. 2. Bilateral pleural effusions and bilateral airspace disease similar to prior study.
[2024-09-23 07:08] LABS: Base Excess 3.6 mmol/L (-2.0-3.0)
--- NOTE | 2024-09-23 08:51 | DVHPN2 ---
Subjective Intubated and chemically sedated. Reviewed: Care Plan, H&P, Labs, Medications, Previous Orders, Radiology, Other (Consultants) Changes from previous H/P or p: No Changes General: Per HPI Objective Vitals Vital Signs Date Time Temp Pulse Resp B/P (MAP) Pulse Ox O2 Delivery O2 Flow Rate FiO2 09/23/24 07:23 88 24 125/78 (94) 97 100 09/23/24 07:00 98.4 209.1 09/23/24 06:00 Mechanical Ventilator+ Intake/Output Intake and Output 09/23/24 07:00 Intake Total 2075.135 ml Output Total 2250 ml Balance -174.865 ml Intake Oral 490 ml IV Total 1585.135 ml Output Urine Total 2250 ml General Appearance: moderate distress, Other (intubated and sedated ) HEENT: Atraumatic, Other (Pinpoint pupils) Lungs: Clear to auscultation, Other (On the vent) Cardiovascular: Regular rate, Normal S1, Normal S2 Abdomen: Normal bowel sounds, Soft Musculoskeletal: Weak motor strength RUE, Weak motor strength LUE, Weak motor strength RLE, Weak motor strength LLE Extremities: Other (1+ bilateral lower extremities edema) Skin: Dry, Intact Psych/Mental Status: Other (intubated and sedated ) Medications Current Medications Medications Dose Ordered Sig/Felicitas Route Start Time Stop Time Status Last Admin Dose Admin Ondansetron HCl 4 mg Q4HP PRN IV 09/01/24 10:30 Nitroglycerin 0.4 mg Q5MINP PRN SL 09/01/24 10:30 Piperacillin Sod/ Tazobactam Sod 100 ml @ 25 mls/hr Q6HR IV 09/01/24 18:00 UNV Furosemide 40 mg DAILY IV 09/03/24 10:00 09/22/24 09:11 40 MG Pantoprazole Sodium 40 mg DAILY IV 09/04/24 10:00 09/22/24 09:11 40 MG Enoxaparin Sodium 40 mg DAILY SC 09/04/24 10:00 09/22/24 09:13 40 MG Budesonide 0.5 mg BID NEB 09/04/24 10:00 09/22/24 22:17 0.5 MG Insulin Glargine 15 units DAILY@1000 SC 09/07/24 10:00 09/22/24 10:00 15 UNITS Acetaminophen 650 mg Q6HP PRN PO 09/09/24 10:45 09/22/24 20:12 650 MG Diagnostic Test (Pha) 1 strip Q6HR 09/10/24 12:00 09/23/24 06:19 1 STRIP Insulin Human Regular Q6HR SC 09/10/24 12:00 09/19/24 10:30 2 UNITS Dextrose 50 ml UD PRN IV 09/10/24 08:15 Azithromycin 250 ml @ 125 mls/hr DAILY IV 09/12/24 10:00 09/22/24 09:13 125 MLS/HR Ipratropium [place] 0.5 mg Q6HR NEB 09/13/24 12:00 09/23/24 00:25 0.5 MG Levalbuterol HCl 1.25 mg Q6HR NEB 09/13/24 12:00 09/23/24 00:25 1.25 MG Risperidone 2 mg DAILY PO 09/14/24 10:00 09/22/24 09:12 2 MG Lorazepam 0.5 mg Q8HP PRN IV 09/15/24 13:15 09/15/24 20:27 0.5 MG Propofol 100 ml @ 3.951 mls/ hr Q24H IV 09/16/24 09:00 09/23/24 04:54 19.755 MLS/HR Midazolam HCl 50 ml @ 1 mls/hr Q24H IV 09/16/24 09:00 09/23/24 06:49 13 MLS/HR Fentanyl Citrate 250 ml @ 2.5 mls/hr Q24H IV 09/16/24 09:00 09/22/24 21:52 22.5 MLS/HR Nystatin 5 ml QID MT 09/16/24 12:00 09/23/24 06:48 5 ML Meropenem 50 ml @ 17 mls/hr Q8HR IV 09/16/24 14:00 09/23/24 06:48 17 MLS/HR Fluconazole 100 ml @ 100 mls/hr DAILY IV 09/17/24 10:00 09/22/24 09:13 100 MLS/HR Norepinephrine Bitartrate 32 mg/ Sodium Chloride 250 ml @ 0.938 mls/ hr Q24H IV 09/16/24 17:45 09/16/24 20:19 6.563 MLS/HR Acetylcysteine 100 mg Q6HR NEB 09/17/24 12:00 09/23/24 00:25 100 MG Purified Water 200 ml Q6HR GT 09/18/24 12:00 09/23/24 06:00 200 ML Vancomycin HCl 0 ml @ 0 mls/hr UD IV 09/19/24 06:45 Enteral Nutritional Formula 1,000 ml 50ML/HR GT 09/21/24 08:30 09/22/24 23:22 1,000 ML Vancomycin HCl 250 ml @ 200 mls/hr Q10H IV 09/22/24 11:00 09/23/24 07:18 200 MLS/HR Laboratory Results Laboratory Tests 09/23/24 03:58 Chemistry Test 09/23/24 03:58 Calcium Level 10.4 mg/dL (8.7-10.4) Blood Gas Results Test 09/23/24 06:14 Arterial Blood pH 7.371 (7.350-7.450) FiO2 % 100.0 Microbiology Microbiology Date/Time Source Procedure Growth Status 09/18/24 13:26 Bronchial Washings Gram Stain - Final Complete 09/18/24 13:26 Bronchial Washings Respiratory Culture - Final Complete 09/16/24 15:15 Urine - [place] Urine Culture - Final Complete 09/16/24 15:13 Other Endotracheal Wash Gram Stain - Final Complete 09/16/24 15:13 Respiratory Culture - Final Methicillin Resistant S.aureus Complete 09/12/24 04:15 Blood Blood Culture - Final Staph hominis subsp homins Complete Labs and/or images reviewed: Labs reviewed by me, Image(s) reviewed by me Assessment/Plan Assessment/Plan Impression: -acute hypoxic and hypercarbic respiratory failure with failure of noninvasive positive pressure ventilation -community-acquired pneumonia, MRSA -morbid obesity -nicotine dependence -sepsis -history of schizophrenia -NSTEMI type 2 Plan: Events: Patient was placed on 100% FiO2 overnight given severe hypoxia. I, myself titrate FiO2 back down to 75% with saturation remaining 95%. Given patient's persistent high FiO2 requirements and elevated PEEP, we will discuss with family plans for tracheostomy and PEG tube placement in addition to transfer to long-term acute care facility for pulmonary rehab. -continue tube feeding -continue regular insulin sliding scale, Lantus 15 units daily -pulmonology consultation: Continue recommendations -Change antibiotic therapy to meropenem, Diflucan, vancomycin -Solu-Medrol to 40 mg daily -burrell cultures: MRSA of the sputum. -continue DVT prophylaxis -PUD prophylaxis -continue bronchodilators, Pulmicort, Mucomyst -PICC line, A-line placement -repeat labs, chest x-ray, ABG in a.m. Critical care time spent with patient discussing and formulating plan of care: 40 minutes. This does not include time spent performing procedures. This medical document was created using an electronic medical record system with [employer] dictation system. Although this document has been carefully reviewed, there may still be some phonetic and typographical errors. These areas are purely typographical due to imperfections of the software programs, and do not reflect any compromise in the patient's medical care. Plan discussed with: Patient, Other (RN) My Orders Orders - ZUHAIR GUILLORY NP Procedure Category Date Status Time Chest Portable XY 09/23/24 Resulted 04:00 Date of Service: Sep 23, 2024 Billing Provider: ZUHAIR GUILLORY NP Common Visit Codes: [id number] CARE 30-74 MIN ZUHAIR GUILLORY NP Sep 23, 2024 08:51
--- NOTE | 2024-09-23 10:38 | DVHNC2 ---
Arterial Puncture Indication: Assess ventilatory status, Assess acid-base status Procedure: Sterile Preparation, Arterial Punct Obtained Location: Right Radial Informed consent obtained: Yes Risks/benefits/alt described: Yes Notes Indications: Acute respiratory failure with frequent ABG monitoring Estimated blood loss: 4 mL Ultrasound guidance use: CPT code 35611 Date of Service: Sep 23, 2024 Billing Provider: ZUHAIR GUILLORY NP Common Visit Codes: PROCEDURE ONLY Procedure Codes: [id number] ZUHAIR GUILLORY NP Sep 23, 2024 10:38
[2024-09-23 13:50] LABS: INR 1.15 (0.9-1.15); Partial Thromboplastin Time 27.3 SEC (24.5-34.5)
[2024-09-23] MEDS: LIDOCAINE 1% (LOCAL ANESTH.) PF 5ml SDV ID ONE (16:15)
[2024-09-23] MEDS: VANCOMYCIN 1GM/250ML KIT 250 ML IV SCH (19:10)
--- NOTE | 2024-09-23 19:39 | DVH ---
EXAM: XY CHEST PORTABLE TECHNIQUE: Single frontal chest radiograph CLINICAL HISTORY: picc line placement COMPARISON: XY CHEST PORTABLE on DOS: 09/23/24, XY CHEST PORTABLE on DOS: 09/22/24, XY CHEST PORTABLE o n DOS: 09/21/24 Findings/Impression: Frontal chest radiograph demonstrates no acute osseous or superficial soft tissue abnormalities. Endotracheal tube terminates 6.7 cm from the alf. Suboptimal visualization of the enteric tube. Ri ght upper extremity PICC and right sided IJ catheter terminate near the superior cavoatrial junction. The trachea is midline. The cardiac silhouette and mediastinum are within normal limits. Bibasilar airspace opacities, right greater than left. No pneumothorax.
--- NOTE | 2024-09-23 20:47 | DVHPN2 ---
Progress Note - Dictate Date Seen: Sep 23, 2024 Medical Necessity Reason Pt with a Central, PICC or Fol: Yes The following are medically ne: Teague Catheter Reason for teague catheter: Strict I&O Subjective Patient seen and examined at bedside. Sedated, intubated on mechanical ventilator. Overnight events reviewed. vital signs Vital Sign Date Time Temp Pulse Resp B/P (MAP) Pulse Ox O2 Delivery O2 Flow Rate FiO2 09/23/24 18:45 93 23 129/82 (98) 94 124/68 (86) 09/23/24 18:13 75 09/23/24 18:00 Mechanical Ventilator+ 09/23/24 16:47 100.2 Total Intake and Output 09/22/24 09/22/24 09/23/24 14:59 22:59 06:59 Intake Total 672.180 ml 859.425 ml 543.530 ml Output Total 1650 ml 600 ml Balance 672.180 ml -790.575 ml -56.470 ml medications Current Medications Medications Dose Ordered Sig/Felicitas Route Start Time Stop Time Status Last Admin Dose Admin Ondansetron HCl 4 mg Q4HP PRN IV 09/01/24 10:30 Nitroglycerin 0.4 mg Q5MINP PRN SL 09/01/24 10:30 Piperacillin Sod/ Tazobactam Sod 100 ml @ 25 mls/hr Q6HR IV 09/01/24 18:00 UNV Furosemide 40 mg DAILY IV 09/03/24 10:00 09/23/24 08:58 40 MG Pantoprazole Sodium 40 mg DAILY IV 09/04/24 10:00 09/23/24 08:57 40 MG Enoxaparin Sodium 40 mg DAILY SC 09/04/24 10:00 09/23/24 08:58 40 MG Budesonide 0.5 mg BID NEB 09/04/24 10:00 09/23/24 19:20 0.5 MG Insulin Glargine 15 units DAILY@1000 SC 09/07/24 10:00 09/23/24 09:12 15 UNITS Acetaminophen 650 mg Q6HP PRN PO 09/09/24 10:45 09/23/24 16:47 650 MG Diagnostic Test (Pha) 1 strip Q6HR 09/10/24 12:00 09/23/24 17:27 1 STRIP Insulin Human Regular Q6HR SC 09/10/24 12:00 09/19/24 10:30 2 UNITS Dextrose 50 ml UD PRN IV 09/10/24 08:15 Azithromycin 250 ml @ 125 mls/hr DAILY IV 09/12/24 10:00 09/23/24 08:59 125 MLS/HR Ipratropium [place] 0.5 mg Q6HR NEB 09/13/24 12:00 09/23/24 19:20 0.5 MG Levalbuterol HCl 1.25 mg Q6HR NEB 09/13/24 12:00 09/23/24 19:20 1.25 MG Risperidone 2 mg DAILY PO 09/14/24 10:00 09/23/24 08:58 2 MG Lorazepam 0.5 mg Q8HP PRN IV 09/15/24 13:15 09/15/24 20:27 0.5 MG Propofol 100 ml @ 3.951 mls/ hr Q24H IV 09/16/24 09:00 09/23/24 15:43 19.755 MLS/HR Midazolam HCl 50 ml @ 1 mls/hr Q24H IV 09/16/24 09:00 09/23/24 17:47 13 MLS/HR Fentanyl Citrate 250 ml @ 2.5 mls/hr Q24H IV 09/16/24 09:00 09/23/24 19:21 22.5 MLS/HR Nystatin 5 ml QID MT 09/16/24 12:00 09/23/24 17:27 5 ML Meropenem 50 ml @ 17 mls/hr Q8HR IV 09/16/24 14:00 09/23/24 06:48 17 MLS/HR Fluconazole 100 ml @ 100 mls/hr DAILY IV 09/17/24 10:00 09/23/24 08:59 100 MLS/HR Norepinephrine Bitartrate 32 mg/ Sodium Chloride 250 ml @ 0.938 mls/ hr Q24H IV 09/16/24 17:45 09/16/24 20:19 6.563 MLS/HR Acetylcysteine 100 mg Q6HR NEB 09/17/24 12:00 09/23/24 19:21 100 MG Purified Water 200 ml Q6HR GT 09/18/24 12:00 09/23/24 12:05 200 ML Vancomycin HCl 0 ml @ 0 mls/hr UD IV 09/19/24 06:45 Enteral Nutritional Formula 1,000 ml 50ML/HR GT 09/21/24 08:30 09/22/24 23:22 1,000 ML Sodium Chloride 10 ml QSHIFT@10,22 IV 09/23/24 22:00 Vancomycin HCl 250 ml @ 250 mls/hr Q8H IV 09/23/24 19:00 09/23/24 19:10 250 MLS/HR objective Gen.: Patient lying in bed in medical ICU. Sedated, intubated on mechanical ventilator. Head: Normocephalic, atraumatic. Eyes: PERRLA. Ears: Normal external anatomy. Throat: Endotracheal tube and orogastric tube in place. Neck: Supple, trachea midline. Chest: Transmitted breath sounds bilaterally. Decreased air entry bilaterally. No wheezing. Bibasilar crackles. Cardiovascular: Positive S1, positive S2. Regular rate and rhythm. Abdomen: Positive bowel sounds in all 4 quadrants. Soft, nontender, nondistended. : Teague in place. Normal external genitalia. Rectal: Deferred. Skin: Warm, dry. Intact. Extremities: 2+ radial pulses bilaterally. No lower extremity edema. Neuro: Sedated. laboratory and microbiology Laboratory Tests 09/23/24 03:58 Test 09/23/24 03:58 Range/Units Serum Glucose 92 74-106 mg/dL Assessment/Plan Impression: Acute hypoxic respiratory failure Acute hypercarbic respiratory failure On mechanical ventilator Pleural effusions Atelectasis Morbid obesity with a BMI of 44.8 Pulmonary edema Acute exacerbation of COPD vs Asthma Elevated troponin Events: Remains on vent support On AC mode with RR 24, VT 600, PEEP 12, FIO2 65 -->75% Taper FiO2 as tolerated Remains on high PEEP + FiO2 requirements Sedated on Propofol, Fentanyl, Versed Off pressors, hemodynamically stable Continue bronchodilators Continue antibiotics/antifungal Monitor WBC Diurese w/ Lasix as tolerated Monitor renal function Monitor electrolytes. Supplement as necessary. Tube feeds for nutritional support S/p PICC line S/p arterial line placement Awaiting CXR to confirm placement to remove central line. Taper FiO2 as tolerated Recommend trach + PEG for liberation from vent once FiO2 and PEEP requirements improved. 09/18/24 - S/p therapeutic bronchoscopy w/ RLL BAL. Mucous plugging cleared from L1-L3 and L6-L10 and R1-R3 and R6-R10 See separate procedure note for details 09/16/24 - S/p bronchoscopy w/ bronchoalveolar lavage, removed copious mucous plugs from RUL/RLL + FROYLAN. See separate procedure note for details. Labs and imaging reviewed. Rest of plan as noted below. Plan: s/p re-intubation, on mechanical ventilator On AC mode with RR 24, VT 600, PEEP 12, FIO2 75% Taper FiO2 as tolerated Sedated for vent synchrony Bronchodilators Steroids - completed Pressors if necessary for hemodynamic support. Titrate to keep MAP above 65 mmHg/SBP above 90 mmHg. F/u Echo to evaluate LVEF, RVSP and r/o valvular dysfunction. F/u Cardiology recommendations Plan for CTA of chest to r/o PE. Antibiotics. Zosyn/Vancomycin F/u cultures. Positive GPC in blood cultures - Follow up ID and sensitivities. Maintain euvolemia Monitor renal function due to Acute kidney injury. Monitor electrolytes. Supplement as necessary. Nutritional support. Accu-Cheks, ISS. Morbid obesity, complicates all care. Diet and lifestyle modifications for weight reduction recommended. GI/DVT prophylaxis. Condition: Critical Prognosis: Poor given multiple comorbidities. Rest of plan per hospitalist and other consultants. A total of 35 minutes of critical care time was spent reviewing the patient record, examining the patient, making a diagnostic and therapeutic plan, discussing this plan with the medical personnel, following up on diagnostic studies and following the patient for clinical stability excluding any and all procedures. At least 50% of this time was spent in direct, [id number] contact. Thank you ANAHI Montoya for allowing me to participate in this patient's care. Further recommendations will depend on patient's clinical course. Please do not hesitate to contact me if you have any questions or concerns. This medical document was created using an electronic medical record system with [employer] system. Although this document has been carefully reviewed, there may still be some phonetic and typographical errors. These areas are purely typographical due to imperfections of the software programs, and do not reflect any compromise in the patient's medical care. Dietary Evaluation Review Recommendations by RD: Increase Calorie Intake Comments: 1. Increase TF as tolerated to goal rate to 50 mL/hr.Goal rate will provide ~ 87 daily estimated energy needs and ~60% daily estimated protein needs. 2. Advance to [facility] [place] 60g diet pending SUPPLY COORDINATOR approval when medically feasible. 3. Continue to monitor patient's weight and labs. Expected Outcomes/Goals: 1. labs to improve 2. diet to advance 3. continue plan of care 4. f/u in 2-3 days Plan discussed with: Other (FERNANDO Fatima) Critical Care Time(min): 35 LIZ GUDINO MD Sep 23, 2024 20:47
[2024-09-23] MEDS: SODIUM CHLOR 0.9% PF (SALINE LOCK) 10ML VIAL/SYR IV SCH (21:45)
[2024-09-24] VITALS (108 sets, daily range): BP systolic 77–138; BP diastolic 35–79; PULSE 84–119; RESP 12–27; TEMP 98.8–101.1; O2SAT 90–99
[2024-09-24 03:50] LABS: Basophils # (auto) 0 10 ^3/uL (0-0.2); Basophils % (auto) 0.4 % (0.0-2.0); Eosinophils # (auto) 0.3 10 ^3/uL (0-0.8); Eosinophils % (auto) 3.6 % (0.0-7.0); Hematocrit 37.2 % (41.0-53.0); Hemoglobin 12.2 g/dL (13.5-17.5); Lymphocytes # (auto) 1.5 10 ^3/uL (0.4-5.4); Lymphocytes % (auto) 19.6 % (10.0-50.0); Mean Corpuscular Hemoglobin 30.7 pg (28.0-32.0); Mean Corpuscular Hgb Conc. 32.9 g/dL (32.0-36.0); Mean Corpuscular Volume 93.4 fL (80.0-100.0); Monocytes # (auto) 0.7 10 ^3/uL (0-1.3); Monocytes % (auto) 9.6 % (0.0-12.0); Neutrophils # (auto) 5.2 10 ^3/uL (1.6-8.6); Neutrophils % (auto) 66.8 % (37.0-80.0); Nucleated Red Blood Cells % 0.1 %; Platelet Count (auto) 284 10^3/uL (140-450); Red Blood Cells 3.98 10^6/uL (4.5-5.90); Red Cell Distribution Width 14.2 % (11.8-14.3); White Blood Cell 7.7 10^3/uL (4.4-10.8)
[2024-09-24 04:00] LABS: Chloride 107 mmol/L (98-107); Potassium 3.7 mmol/L (3.5-5.1); Sodium 144 mmol/L (136-145)
[2024-09-24 04:01] LABS: Anion Gap 8 (5-15); Calcium 10.1 mg/dL (8.7-10.4); Carbon Dioxide 29 mmol/L (20-31)
[2024-09-24 04:06] LABS: BUN/Creatinine Ratio 28.6 (10.0-20.0); Blood Urea Nitrogen 16 mg/dL (9-23)
[2024-09-24 04:21] LABS: Glucose 107 mg/dL (74-106)
[2024-09-24 07:19] LABS: Base Excess 3.1 mmol/L (-2.0-3.0)
--- NOTE | 2024-09-24 08:03 | DVHPN2 ---
Subjective Intubated and chemically sedated. Reviewed: Care Plan, H&P, Labs, Medications, Previous Orders, Radiology, Other (Consultants) Changes from previous H/P or p: No Changes General: Per HPI Objective Vitals Vital Signs Date Time Temp Pulse Resp B/P (MAP) Pulse Ox O2 Delivery O2 Flow Rate FiO2 09/24/24 06:45 99.9 91 24 104/35 (58) 92 211.8 124/63 (83) 09/24/24 06:39 75 09/24/24 06:00 Mechanical Ventilator+ Intake/Output Intake and Output 09/24/24 07:00 Intake Total 3667.025 ml Output Total 2075 ml Balance 1592.025 ml Intake Oral 200 ml IV Total 2857.025 ml Tube Feeding 210 ml Other 400 ml Output Urine Total 2075 ml General Appearance: moderate distress, Other (intubated and sedated ) HEENT: Atraumatic, Other (Pinpoint pupils) Lungs: Clear to auscultation, Other (On the vent) Cardiovascular: Regular rate, Normal S1, Normal S2 Abdomen: Normal bowel sounds, Soft Musculoskeletal: Weak motor strength RUE, Weak motor strength LUE, Weak motor strength RLE, Weak motor strength LLE Extremities: Other (1+ bilateral lower extremities edema) Skin: Dry, Intact Psych/Mental Status: Other (intubated and sedated ) Medications Current Medications Medications Dose Ordered Sig/Felicitas Route Start Time Stop Time Status Last Admin Dose Admin Ondansetron HCl 4 mg Q4HP PRN IV 09/01/24 10:30 Nitroglycerin 0.4 mg Q5MINP PRN SL 09/01/24 10:30 Piperacillin Sod/ Tazobactam Sod 100 ml @ 25 mls/hr Q6HR IV 09/01/24 18:00 UNV Pantoprazole Sodium 40 mg DAILY IV 09/04/24 10:00 09/23/24 08:57 40 MG Enoxaparin Sodium 40 mg DAILY SC 09/04/24 10:00 09/23/24 08:58 40 MG Budesonide 0.5 mg BID NEB 09/04/24 10:00 09/23/24 19:20 0.5 MG Insulin Glargine 15 units DAILY@1000 SC 09/07/24 10:00 09/23/24 09:12 15 UNITS Acetaminophen 650 mg Q6HP PRN PO 09/09/24 10:45 09/23/24 21:54 650 MG Diagnostic Test (Pha) 1 strip Q6HR 09/10/24 12:00 09/24/24 05:03 1 STRIP Insulin Human Regular Q6HR SC 09/10/24 12:00 09/19/24 10:30 2 UNITS Dextrose 50 ml UD PRN IV 09/10/24 08:15 Azithromycin 250 ml @ 125 mls/hr DAILY IV 09/12/24 10:00 09/23/24 08:59 125 MLS/HR Ipratropium [place] 0.5 mg Q6HR NEB 09/13/24 12:00 09/24/24 06:36 0.5 MG Levalbuterol HCl 1.25 mg Q6HR NEB 09/13/24 12:00 09/24/24 06:38 1.25 MG Risperidone 2 mg DAILY PO 09/14/24 10:00 09/23/24 08:58 2 MG Lorazepam 0.5 mg Q8HP PRN IV 09/15/24 13:15 09/15/24 20:27 0.5 MG Propofol 100 ml @ 3.951 mls/ hr Q24H IV 09/16/24 09:00 09/24/24 04:51 19.755 MLS/HR Midazolam HCl 50 ml @ 1 mls/hr Q24H IV 09/16/24 09:00 09/24/24 04:50 12 MLS/HR Fentanyl Citrate 250 ml @ 2.5 mls/hr Q24H IV 09/16/24 09:00 09/24/24 05:37 22.5 MLS/HR Nystatin 5 ml QID MT 09/16/24 12:00 09/24/24 05:02 5 ML Meropenem 50 ml @ 17 mls/hr Q8HR IV 09/16/24 14:00 09/24/24 05:02 17 MLS/HR Fluconazole 100 ml @ 100 mls/hr DAILY IV 09/17/24 10:00 09/23/24 08:59 100 MLS/HR Norepinephrine Bitartrate 32 mg/ Sodium Chloride 250 ml @ 0.938 mls/ hr Q24H IV 09/16/24 17:45 09/16/24 20:19 6.563 MLS/HR Acetylcysteine 100 mg Q6HR NEB 09/17/24 12:00 09/24/24 06:37 100 MG Purified Water 200 ml Q6HR GT 09/18/24 12:00 09/24/24 05:02 200 ML Vancomycin HCl 0 ml @ 0 mls/hr UD IV 09/19/24 06:45 Enteral Nutritional Formula 1,000 ml 50ML/HR GT 09/21/24 08:30 09/22/24 23:22 1,000 ML Sodium Chloride 10 ml QSHIFT@10,22 IV 09/23/24 22:00 09/23/24 21:45 10 ML Vancomycin HCl 250 ml @ 250 mls/hr Q8H IV 09/23/24 19:00 09/24/24 03:00 250 MLS/HR Furosemide 40 mg BID IV 09/24/24 10:00 Metoclopramide HCl 10 mg Q8HR IV 09/24/24 14:00 Lactulose 30 ml BID GT 09/24/24 10:00 Laboratory Results Laboratory Tests 09/24/24 03:00 Chemistry Test 09/24/24 03:00 Calcium Level 10.1 mg/dL (8.7-10.4) Coagulation Test 09/23/24 13:00 Prothrombin Time 12.0 sec (9.3-11.8) H Prothrombin Time INR 1.15 (0.9-1.15) Activated Partial Thromboplast Time 27.3 SEC (24.5-34.5) Blood Gas Results Test 09/24/24 07:11 Arterial Blood pH 7.418 (7.350-7.450) FiO2 % 75.0 Microbiology Microbiology Date/Time Source Procedure Growth Status 09/18/24 13:26 Bronchial Washings Gram Stain - Final Complete 09/18/24 13:26 Bronchial Washings Respiratory Culture - Final Complete 09/16/24 15:15 Urine - [place] Urine Culture - Final Complete 09/16/24 15:13 Other Endotracheal Wash Gram Stain - Final Complete 09/16/24 15:13 Respiratory Culture - Final Methicillin Resistant S.aureus Complete 09/12/24 04:15 Blood Blood Culture - Final Staph hominis subsp homins Complete Labs and/or images reviewed: Labs reviewed by me, Image(s) reviewed by me Assessment/Plan Assessment/Plan Impression: -acute hypoxic and hypercarbic respiratory failure with failure of noninvasive positive pressure ventilation -community-acquired pneumonia, MRSA -morbid obesity -nicotine dependence -sepsis -history of schizophrenia -NSTEMI type 2 Plan: Events: Patient continues to be on FiO2 75% with a PEEP of 12. No events overnight. -continue tube feeding, -Add bowel regimen -continue regular insulin sliding scale, Lantus 15 units daily -pulmonology consultation: Continue recommendations -Cantibiotic therapy to meropenem, Diflucan, vancomycin -Solu-Medrol to 40 mg daily -burrell cultures: MRSA of the sputum. -continue DVT prophylaxis -PUD prophylaxis -continue bronchodilators, Pulmicort, Mucomyst -PICC line, A-line placement -repeat labs, chest x-ray, ABG in a.m. -goals care include tracheostomy with PEG tube placement. Discussed with patient was sister in detail yesterday who is agreeable this plan in addition to transitioning to a long-term acute care facility Critical care time spent with patient discussing and formulating plan of care: 40 minutes. This does not include time spent performing procedures. This medical document was created using an electronic medical record system with [employer] dictation system. Although this document has been carefully reviewed, there may still be some phonetic and typographical errors. These areas are purely typographical due to imperfections of the software programs, and do not reflect any compromise in the patient's medical care. Plan discussed with: Patient, Other (RN) My Orders Orders - ZUHAIR GUILLORY SERVICE WRITER Procedure Category Date Status Time Us Guided Vascular US 09/23/24 Logged Access 09:39 * Picc Line Consult CONS 09/23/24 Transmitted 10:52 Nursing Protocol Picc RAMANA 09/23/24 In Process 16:09 Change Dressing Prn RAMANA 09/23/24 In Process 16:09 Sodium Chloride Lock PHA 09/23/24 In Process (Saline Lock Ns) 22:00 Do Not Use Picc For RAMANA 09/23/24 In Process Blood Cult 16:09 May Draw Blood From RAMANA 09/23/24 In Process Picc 16:09 Ok To Use Picc RAMANA 09/23/24 In Process 16:09 Change Picc Dressing RAMANA 09/23/24 In Process Q7 Days 16:09 Abg W/ Co-Ox RT 09/24/24 Logged 05:34 Furosemide Injection PHA 09/24/24 In Process (Lasix Injection) 10:00 Chest Portable XY 09/25/24 Logged 05:00 Chest Portable XY 09/26/24 Logged 05:00 Chest Portable XY 09/27/24 Logged 05:00 Metoclopramide PHA 09/24/24 In Process Injection (Reglan 14:00 Lactulose Oral PHA 09/24/24 In Process 10:00 Date of Service: Sep 24, 2024 Billing Provider: ZUHAIR GUILLORY NP Common Visit Codes: [id number] CARE 30-74 MIN ZUHAIR GUILLORY NP Sep 24, 2024 08:03
[2024-09-24] MEDS: LACTULOSE 20Gm/30ML SOLN GT SCH (09:53)
[2024-09-24] MEDS: FUROSEMIDE 40 MG/4 ML VIAL IV SCH (09:54)
--- NOTE | 2024-09-24 10:20 | DVH ---
CHEST RADIOGRAPH Indication: intubated/sedated Technique: Single frontal view of the chest was obtained Comparison: XY CHEST PORTABLE on DOS: 09/23/24, XY CHEST PORTABLE on DOS: 09/23/24, XY CHEST PORTABLE o n DOS: 09/22/24, XY CHEST PORTABLE on DOS: 09/21/24, XY CHEST PORTABLE on DOS: 09/20/24, XY CHEST PORTAB LE on DOS: 09/23/24 Findings:Lines and Tubes: The endotracheal tube terminates 5.4 cm above the alf. Right central venous catheter terminates in the superior cavoatrial junction. The enteric tube termin ates in the stomach. Lungs: Diffuse bilateral airspace disease. Pleura : Bilateral pleural effusions. No pneumothorax. Cardiomediastinal contours: Stable. Bones: No acute osseous abnormality. Impression:1. Stable position of the support lines and tubes. 2. Bilateral pleural effusions and bilateral airspace disease similar to prior study.
[2024-09-24] MEDS: METOCLOPRAMIDE HCL 5MG/ml INJ 2ml VIAL IV SCH (14:00)
[2024-09-24] MEDS: ROCURONIUM 10MG/ML 10ML VIAL IV ONE (18:08)
--- NOTE | 2024-09-24 21:13 | DVH ---
EXAM: XY CHEST PORTABLE TECHNIQUE: Single frontal chest radiograph CLINICAL HISTORY: s/p bronchoscopy COMPARISON: XY CHEST PORTABLE on DOS: 09/24/24, XY CHEST PORTABLE on DOS: 09/23/24, XY CHEST PORTABLE o n DOS: 09/23/24 Findings/Impression: Frontal chest radiograph demonstrates no acute osseous or superficial soft tissue abnormalities. Endotracheal tube terminates 5.9 cm from the alf. Suboptimal visualization of the enteric tube. Ri ght upper extremity PICC terminates near the superior cavoatrial junction. The trachea is midline. The cardiac silhouette and mediastinum are within normal limits. Bibasilar airspace opacities, worse from prior. No pneumothorax.
--- NOTE | 2024-09-24 21:39 | DVHNC2 ---
Procedure - Bronchoscopy procedure note: Indications: Increased ET tube secretions, increased O2 req, Possible mucous plugging. Medicines: See OCCUPATIONAL HEALTH SPECIALIST notes. Complications: None Procedure: Patient medications and allergies reviewed. The risks and benefits of the procedure and the sedation options and risk were discussed with the patient's healthcare proxy. All questions were answered and informed consent was obtained. Patient identification and proposed procedure were verified prior to the procedure by the physician, and a nurse, and the respiratory therapist in ICU room. The heart rate, respiratory rate, oxygen saturations, blood pressure, adequacy of pulmonary ventilation, and response to care were monitored throughout the procedure. The physical status of the patient was reassessed after the procedure. After obtaining informed consent, the bronchoscope was introduced through the endotracheal tube and advanced into the trachea bronchial tree of both lungs. The procedure was accomplished without difficulty. The patient tolerated the procedure well. Findings: The trachea is in normal caliber. The alf is sharp. The tracheobronchial tree of the right lung was examined to at least the first subsegmental level. The bronchial mucosa and anatomy in the right lung are normal. There are no endobronchial lesions. There was copious whitish secretions from right main stem bronchus onward throughout R1-R3 and R6-R10. The left upper lobe, lingula, and left lower lobe were examined to at least the first subsegmental level. Bronchial mucosa and anatomy in the left upper lobe and lingula are normal. There were no endobronchial lesions. There was copious brownish secretions from left main stem bronchus onward throughout L1-L3. Mucous plugging removed from L1-L3. There was no active bleeding at the completion of the procedure. Estimated blood loss: Less than 5 mL. Impression: Left upper lobe atelectasis due to mucous plugging Mucous plugging from L1-L3 and R1-R3 and R6-R10 Recommendation: Pulmonary toileting. Procedure codes: 03171, bronchoscopy, rigid and flexible, including fluoroscopic guidance, one performed; with bronchial endobronchial removal of mucous plugging, single or multiple sites LIZ GUDINO MD Sep 24, 2024 21:39
--- NOTE | 2024-09-24 23:25 | DVHPN2 ---
Progress Note - Dictate Date Seen: Sep 24, 2024 Medical Necessity Reason Pt with a Central, PICC or Fol: Yes The following are medically ne: Teague Catheter Reason for teague catheter: Strict I&O Subjective Patient seen and examined at bedside. Sedated, intubated on mechanical ventilator. Overnight events reviewed. vital signs Vital Sign Date Time Temp Pulse Resp B/P (MAP) Pulse Ox O2 Delivery O2 Flow Rate FiO2 09/24/24 22:15 100.8 103 24 118/61 (80) 93 213.4 09/24/24 22:00 80 09/24/24 22:00 Mechanical Ventilator+ Total Intake and Output 09/23/24 09/23/24 09/24/24 15:00 23:00 07:00 Intake Total 1055.425 ml 1210.060 ml 1454.795 ml Output Total 1575 ml 500 ml Balance 1055.425 ml -364.940 ml 954.795 ml medications Current Medications Medications Dose Ordered Sig/Felicitas Route Start Time Stop Time Status Last Admin Dose Admin Ondansetron HCl 4 mg Q4HP PRN IV 09/01/24 10:30 Nitroglycerin 0.4 mg Q5MINP PRN SL 09/01/24 10:30 Piperacillin Sod/ Tazobactam Sod 100 ml @ 25 mls/hr Q6HR IV 09/01/24 18:00 UNV Pantoprazole Sodium 40 mg DAILY IV 09/04/24 10:00 09/24/24 09:54 40 MG Enoxaparin Sodium 40 mg DAILY SC 09/04/24 10:00 09/24/24 09:57 40 MG Budesonide 0.5 mg BID NEB 09/04/24 10:00 09/24/24 20:18 0.5 MG Insulin Glargine 15 units DAILY@1000 SC 09/07/24 10:00 09/24/24 10:04 15 UNITS Acetaminophen 650 mg Q6HP PRN PO 09/09/24 10:45 09/24/24 21:42 650 MG Diagnostic Test (Pha) 1 strip Q6HR 09/10/24 12:00 09/24/24 18:00 1 STRIP Insulin Human Regular Q6HR SC 09/10/24 12:00 09/24/24 12:32 2 UNITS Dextrose 50 ml UD PRN IV 09/10/24 08:15 Azithromycin 250 ml @ 125 mls/hr DAILY IV 09/12/24 10:00 09/24/24 09:56 125 MLS/HR Ipratropium [place] 0.5 mg Q6HR NEB 09/13/24 12:00 09/24/24 20:17 0.5 MG Levalbuterol HCl 1.25 mg Q6HR NEB 09/13/24 12:00 09/24/24 20:17 1.25 MG Risperidone 2 mg DAILY PO 09/14/24 10:00 09/24/24 09:57 2 MG Lorazepam 0.5 mg Q8HP PRN IV 09/15/24 13:15 09/15/24 20:27 0.5 MG Propofol 100 ml @ 3.951 mls/ hr Q24H IV 09/16/24 09:00 09/24/24 22:08 19.755 MLS/HR Midazolam HCl 50 ml @ 1 mls/hr Q24H IV 09/16/24 09:00 09/24/24 22:10 12 MLS/HR Fentanyl Citrate 250 ml @ 2.5 mls/hr Q24H IV 09/16/24 09:00 09/24/24 14:02 22.5 MLS/HR Nystatin 5 ml QID MT 09/16/24 12:00 09/24/24 21:16 5 ML Meropenem 50 ml @ 17 mls/hr Q8HR IV 09/16/24 14:00 09/24/24 21:17 17 MLS/HR Fluconazole 100 ml @ 100 mls/hr DAILY IV 09/17/24 10:00 09/24/24 09:53 100 MLS/HR Norepinephrine Bitartrate 32 mg/ Sodium Chloride 250 ml @ 0.938 mls/ hr Q24H IV 09/16/24 17:45 09/16/24 20:19 6.563 MLS/HR Acetylcysteine 100 mg Q6HR NEB 09/17/24 12:00 09/24/24 20:18 100 MG Purified Water 200 ml Q6HR GT 09/18/24 12:00 09/24/24 17:36 200 ML Vancomycin HCl 0 ml @ 0 mls/hr UD IV 09/19/24 06:45 Enteral Nutritional Formula 1,000 ml 50ML/HR GT 09/21/24 08:30 09/22/24 23:22 1,000 ML Sodium Chloride 10 ml QSHIFT@10,22 IV 09/23/24 22:00 09/24/24 21:18 10 ML Furosemide 40 mg BID IV 09/24/24 10:00 09/24/24 21:18 40 MG Metoclopramide HCl 10 mg Q8HR IV 09/24/24 14:00 09/24/24 21:18 10 MG Lactulose 30 ml BID GT 09/24/24 10:00 09/24/24 21:19 30 ML Vancomycin HCl 250 ml @ 200 mls/hr Q8HR@0000,0800,1600 IV 09/25/24 00:00 objective Gen.: Patient lying in bed in medical ICU. Sedated, intubated on mechanical ventilator. Head: Normocephalic, atraumatic. Eyes: PERRLA. Ears: Normal external anatomy. Throat: Endotracheal tube and orogastric tube in place. Neck: Supple, trachea midline. Chest: Transmitted breath sounds bilaterally. Decreased air entry bilaterally. No wheezing. Bibasilar crackles. Cardiovascular: Positive S1, positive S2. Regular rate and rhythm. Abdomen: Positive bowel sounds in all 4 quadrants. Soft, nontender, nondistended. : Teague in place. Normal external genitalia. Rectal: Deferred. Skin: Warm, dry. Intact. Extremities: 2+ radial pulses bilaterally. No lower extremity edema. Neuro: Sedated. laboratory and microbiology Laboratory Tests 09/24/24 03:00 Test 09/24/24 03:00 Range/Units Serum Glucose 107 H 74-106 mg/dL Assessment/Plan Impression: Acute hypoxic respiratory failure Acute hypercarbic respiratory failure On mechanical ventilator Pleural effusions Atelectasis Morbid obesity with a BMI of 44.8 Pulmonary edema Acute exacerbation of COPD vs Asthma Elevated troponin Events: Remains on vent support On AC mode with RR 24, VT 600, PEEP 12, FIO2 75% Taper FiO2 as tolerated Remains on high PEEP + FiO2 requirements Sedated on Propofol, Fentanyl, Versed Off pressors, hemodynamically stable ABG reviewed, compensated Will order chest x-ray to assess for interval changes. Continue bronchodilators Continue antibiotics/antifungal Monitor WBC Diurese w/ Lasix as tolerated Monitor renal function Monitor electrolytes. Supplement as necessary. Tube feeds for nutritional support Copious secretions via endotracheal tube. Obtain consent for therapeutic bronchoscopy for clearing of secretions. Taper FiO2 as tolerated Recommend trach + PEG for liberation from vent once FiO2 and PEEP requirements improved. 09/18/24 - S/p therapeutic bronchoscopy w/ RLL BAL. Mucous plugging cleared from L1-L3 and L6-L10 and R1-R3 and R6-R10 See separate procedure note for details 09/16/24 - S/p bronchoscopy w/ bronchoalveolar lavage, removed copious mucous plugs from RUL/RLL + FROYLAN. See separate procedure note for details. Labs and imaging reviewed. Rest of plan as noted below. Plan: s/p re-intubation, on mechanical ventilator On AC mode with RR 24, VT 600, PEEP 12, FIO2 75% Taper FiO2 as tolerated Sedated for vent synchrony Bronchodilators Steroids - completed Pressors if necessary for hemodynamic support. Titrate to keep MAP above 65 mmHg/SBP above 90 mmHg. F/u Echo to evaluate LVEF, RVSP and r/o valvular dysfunction. F/u Cardiology recommendations Plan for CTA of chest to r/o PE. Antibiotics. Zosyn/Vancomycin F/u cultures. Positive GPC in blood cultures - Follow up ID and sensitivities. Maintain euvolemia Monitor renal function due to Acute kidney injury. Monitor electrolytes. Supplement as necessary. Nutritional support. Accu-Cheks, ISS. Morbid obesity, complicates all care. Diet and lifestyle modifications for weight reduction recommended. GI/DVT prophylaxis. Condition: Critical Prognosis: Poor given multiple comorbidities. Rest of plan per hospitalist and other consultants. A total of 35 minutes of critical care time was spent reviewing the patient record, examining the patient, making a diagnostic and therapeutic plan, discussing this plan with the medical personnel, following up on diagnostic studies and following the patient for clinical stability excluding any and all procedures. At least 50% of this time was spent in direct, [id number] contact. Thank you ANAHI Montoya for allowing me to participate in this patient's care. Further recommendations will depend on patient's clinical course. Please do not hesitate to contact me if you have any questions or concerns. This medical document was created using an electronic medical record system with [employer] system. Although this document has been carefully reviewed, there may still be some phonetic and typographical errors. These areas are purely typographical due to imperfections of the software programs, and do not reflect any compromise in the patient's medical care. Dietary Evaluation Review Recommendations by RD: Increase Calorie Intake Comments: 1. Increase TF as tolerated to goal rate to 50 mL/hr.Goal rate will provide ~ 87 daily estimated energy needs and ~60% daily estimated protein needs. 2. Advance to CCHO 60g diet pending TOBACCO PACKING MACHINE OPERATOR approval when medically feasible. 3. Continue to monitor patient's weight and labs. Expected Outcomes/Goals: 1. labs to improve 2. diet to advance 3. continue plan of care 4. f/u in 2-3 days Plan discussed with: Other (FERNANDO Livingston) Critical Care Time(min): 35 LIZ GUDINO MD Sep 24, 2024 23:25
[2024-09-25] VITALS (108 sets, daily range): BP systolic 79–150; BP diastolic 34–105; PULSE 85–107; RESP 16–25; TEMP 98.4–101.1; O2SAT 92–99
[2024-09-25] MEDS: VANCOMYCIN 1.25gm/250mL PREMIX or KIT IV SCH (00:06)
[2024-09-25 04:30] LABS: Chloride 104 mmol/L (98-107); Potassium 3.6 mmol/L (3.5-5.1); Sodium 142 mmol/L (136-145)
[2024-09-25 04:31] LABS: Anion Gap 7 (5-15); Carbon Dioxide 31 mmol/L (20-31)
[2024-09-25 04:36] LABS: BUN/Creatinine Ratio 22.4 (10.0-20.0); Blood Urea Nitrogen 15 mg/dL (9-23)
[2024-09-25 04:38] LABS: Glucose 107 mg/dL (74-106)
[2024-09-25 04:56] LABS: Basophils # (auto) 0 10 ^3/uL (0-0.2); Basophils % (auto) 0.4 % (0.0-2.0); Eosinophils # (auto) 0.3 10 ^3/uL (0-0.8); Eosinophils % (auto) 2.9 % (0.0-7.0); Hematocrit 36.6 % (41.0-53.0); Hemoglobin 12.2 g/dL (13.5-17.5); Lymphocytes # (auto) 1.6 10 ^3/uL (0.4-5.4); Lymphocytes % (auto) 17.3 % (10.0-50.0); Mean Corpuscular Hemoglobin 30.7 pg (28.0-32.0); Mean Corpuscular Hgb Conc. 33.3 g/dL (32.0-36.0); Monocytes # (auto) 0.8 10 ^3/uL (0-1.3); Monocytes % (auto) 8.8 % (0.0-12.0); Neutrophils # (auto) 6.4 10 ^3/uL (1.6-8.6); Neutrophils % (auto) 70.6 % (37.0-80.0); Nucleated Red Blood Cells % 0.2 %; Platelet Count (auto) 282 10^3/uL (140-450); Red Blood Cells 3.97 10^6/uL (4.5-5.90); Red Cell Distribution Width 13.9 % (11.8-14.3)
--- NOTE | 2024-09-25 05:16 | DVH ---
CHEST RADIOGRAPH Indication: pna Technique: Single frontal view of the chest was obtained COMPARISON: XY CHEST PORTABLE on DOS: 09/24/24, XY CHEST PORTABLE on DOS: 09/24/24, XY CHEST PORTABLE o n DOS: 09/23/24, XY CHEST PORTABLE on DOS: 09/23/24, XY CHEST PORTABLE on DOS: 09/22/24 FINDINGS: Lines and Tubes: Endotracheal tube, enteric catheter and right PICC in satisfactory position. Lungs: Congestion Pleura: Small bilateral pleural effusions. No pneumothorax. Cardiomediastinal contours: Unremarkable Bones: Unremarkable IMPRESSION: Lines and tubes in satisfactory position. No significant interval change.
[2024-09-25 07:18] LABS: Base Excess 4.9 mmol/L (-2.0-3.0)
--- NOTE | 2024-09-25 14:12 | CONS ---
Pharmacy Clinical Information: QTc = 525, consider d/c azithromycin AMEENA REYES PHARMACIST Sep 25, 2024 14:12
--- NOTE | 2024-09-25 14:12 | DVHPN2 ---
Subjective The patient is seen and examined at bedside. Remained intubated. Fever on and of, usually above 100.5. Cooling measure, Tylenol, antibiotic on board but the patient continuing to have fever. Reviewed: Care Plan, H&P, Labs, Medications, Previous Orders, Radiology, Other (Consultants) Changes from previous H/P or p: No Changes General: Per HPI Objective Vitals Vital Signs Date Time Temp Pulse Resp B/P (MAP) Pulse Ox O2 Delivery O2 Flow Rate FiO2 09/25/24 14:04 95 24 108/55 (72) 95 75 09/25/24 12:00 Mechanical Ventilator+ 09/25/24 08:45 99.9 211.8 Intake/Output Intake and Output 09/25/24 07:00 Intake Total 3492.345 ml Output Total 2450 ml Balance 1042.345 ml Intake Oral 1050 ml IV Total 2217.345 ml Tube Feeding 225 ml Output Urine Total 2450 ml General Appearance: moderate distress, Other (intubated and sedated ) HEENT: Atraumatic, Other (Pinpoint pupils) Lungs: Clear to auscultation, Other (On the vent) Cardiovascular: Regular rate, Normal S1, Normal S2 Abdomen: Normal bowel sounds, Soft Musculoskeletal: Weak motor strength RUE, Weak motor strength LUE, Weak motor strength RLE, Weak motor strength LLE Extremities: Other (1+ bilateral lower extremities edema) Skin: Dry, Intact Psych/Mental Status: Other (intubated and sedated ) Medications Current Medications Medications Dose Ordered Sig/Felicitas Route Start Time Stop Time Status Last Admin Dose Admin Ondansetron HCl 4 mg Q4HP PRN IV 09/01/24 10:30 Nitroglycerin 0.4 mg Q5MINP PRN SL 09/01/24 10:30 Piperacillin Sod/ Tazobactam Sod 100 ml @ 25 mls/hr Q6HR IV 09/01/24 18:00 UNV Pantoprazole Sodium 40 mg DAILY IV 09/04/24 10:00 09/25/24 09:29 40 MG Enoxaparin Sodium 40 mg DAILY SC 09/04/24 10:00 09/25/24 09:37 40 MG Budesonide 0.5 mg BID NEB 09/04/24 10:00 09/25/24 06:41 0.5 MG Insulin Glargine 15 units DAILY@1000 SC 09/07/24 10:00 09/25/24 09:36 15 UNITS Acetaminophen 650 mg Q6HP PRN PO 09/09/24 10:45 09/25/24 04:11 650 MG Diagnostic Test (Pha) 1 strip Q6HR 09/10/24 12:00 09/25/24 12:00 1 STRIP Insulin Human Regular Q6HR SC 09/10/24 12:00 09/24/24 12:32 2 UNITS Dextrose 50 ml UD PRN IV 09/10/24 08:15 Azithromycin 250 ml @ 125 mls/hr DAILY IV 09/12/24 10:00 09/25/24 09:29 125 MLS/HR Ipratropium [place] 0.5 mg Q6HR NEB 09/13/24 12:00 09/25/24 12:16 0.5 MG Levalbuterol HCl 1.25 mg Q6HR NEB 09/13/24 12:00 09/25/24 12:16 1.25 MG Risperidone 2 mg DAILY PO 09/14/24 10:00 09/25/24 09:30 2 MG Lorazepam 0.5 mg Q8HP PRN IV 09/15/24 13:15 09/15/24 20:27 0.5 MG Propofol 100 ml @ 3.951 mls/ hr Q24H IV 09/16/24 09:00 09/25/24 11:27 19.755 MLS/HR Midazolam HCl 50 ml @ 1 mls/hr Q24H IV 09/16/24 09:00 09/25/24 13:08 12 MLS/HR Fentanyl Citrate 250 ml @ 2.5 mls/hr Q24H IV 09/16/24 09:00 09/25/24 09:28 22.5 MLS/HR Nystatin 5 ml QID MT 09/16/24 12:00 09/25/24 13:13 5 ML Meropenem 50 ml @ 17 mls/hr Q8HR IV 09/16/24 14:00 09/25/24 13:13 17 MLS/HR Fluconazole 100 ml @ 100 mls/hr DAILY IV 09/17/24 10:00 09/25/24 09:29 100 MLS/HR Norepinephrine Bitartrate 32 mg/ Sodium Chloride 250 ml @ 0.938 mls/ hr Q24H IV 09/16/24 17:45 09/16/24 20:19 6.563 MLS/HR Acetylcysteine 100 mg Q6HR NEB 09/17/24 12:00 09/25/24 12:16 100 MG Purified Water 200 ml Q6HR GT 09/18/24 12:00 09/25/24 12:00 200 ML Vancomycin HCl 0 ml @ 0 mls/hr UD IV 09/19/24 06:45 Enteral Nutritional Formula 1,000 ml 50ML/HR GT 09/21/24 08:30 09/22/24 23:22 1,000 ML Sodium Chloride 10 ml QSHIFT@10,22 IV 09/23/24 22:00 09/25/24 09:29 10 ML Furosemide 40 mg BID IV 09/24/24 10:00 09/25/24 09:29 40 MG Metoclopramide HCl 10 mg Q8HR IV 09/24/24 14:00 09/25/24 13:13 10 MG Lactulose 30 ml BID GT 09/24/24 10:00 09/25/24 09:28 30 ML Vancomycin HCl 250 ml @ 200 mls/hr Q8HR@0000,0800,1600 IV 09/25/24 00:00 09/25/24 07:58 200 MLS/HR Laboratory Results Laboratory Tests 09/25/24 03:30 Chemistry Test 09/25/24 03:30 Calcium Level 10.0 mg/dL (8.7-10.4) Blood Gas Results Test 09/25/24 07:04 Arterial Blood pH 7.425 (7.350-7.450) FiO2 % 80.0 Microbiology Microbiology Date/Time Source Procedure Growth Status 09/18/24 13:26 Bronchial Washings Gram Stain - Final Complete 09/18/24 13:26 Bronchial Washings Respiratory Culture - Final Complete 09/16/24 15:15 Urine - [place] Urine Culture - Final Complete 09/16/24 15:13 Other Endotracheal Wash Gram Stain - Final Complete 09/16/24 15:13 Respiratory Culture - Final Methicillin Resistant S.aureus Complete 09/12/24 04:15 Blood Blood Culture - Final Staph hominis subsp homins Complete Labs and/or images reviewed: Labs reviewed by me Assessment/Plan Assessment/Plan -acute hypoxic and hypercarbic respiratory failure with failure of noninvasive positive pressure ventilation -community-acquired pneumonia, MRSA -morbid obesity -nicotine dependence -sepsis -history of schizophrenia -NSTEMI type 2 -Persistent fever. Plan: The patient continues to be on FiO2 75% with a PEEP of 12. The patient continuing to have fever 100 and above. Pharmacist called today in recommend to review psych medication that can induce fever , or neuroleptic malignant syndrome. I am going to hold the patient's risperidone and see if the fever improved. If temperature greater than 100.5 anticipate to repeat urine culture, blood culture. -continue tube feeding, -continue bowel regimen -continue regular insulin sliding scale, Lantus 15 units daily -pulmonology consultation: Continue recommendations -Continue antibiotic therapy with meropenem, Diflucan, vancomycin -Solu-Medrol to 40 mg daily -burrell cultures: MRSA of the sputum. -continue DVT prophylaxis -PUD prophylaxis -continue bronchodilators, Pulmicort, Mucomyst -PICC line, A-line placement -repeat labs, chest x-ray, ABG in a.m. -goals care include tracheostomy with PEG tube placement. Discussed with patient was sister in detail yesterday who is agreeable this plan in addition to transitioning to a long-term acute care facility Critical care time spent with patient discussing and formulating plan of care: 40 minutes. This does not include time spent performing procedures. Plan discussed with: Other (RN) Date of Service: Sep 25, 2024 Billing Provider: DIPAK CUMMINGS MD Common Visit Codes: [id number] INP/OBS CARE(HIGH) DIPAK CUMMINGS MD Sep 25, 2024 14:12
--- NOTE | 2024-09-25 23:06 | DVHPN2 ---
Progress Note - Dictate Date Seen: Sep 25, 2024 Medical Necessity Reason Pt with a Central, PICC or Fol: Yes The following are medically ne: Teague Catheter Reason for teague catheter: Strict I&O Subjective Patient seen and examined at bedside. Sedated, intubated on mechanical ventilator. Overnight events reviewed. vital signs Vital Sign Date Time Temp Pulse Resp B/P (MAP) Pulse Ox O2 Delivery O2 Flow Rate FiO2 09/25/24 22:45 98.4 87 24 118/64 (82) 97 209.1 09/25/24 22:06 70 09/25/24 22:00 Mechanical Ventilator+ Total Intake and Output 09/24/24 09/24/24 09/25/24 15:00 23:00 07:00 Intake Total 1060.040 ml 1020.040 ml 1412.265 ml Output Total 1050 ml 1400 ml Balance 1060.040 ml -29.960 ml 12.265 ml medications Current Medications Medications Dose Ordered Sig/Felicitas Route Start Time Stop Time Status Last Admin Dose Admin Ondansetron HCl 4 mg Q4HP PRN IV 09/01/24 10:30 Nitroglycerin 0.4 mg Q5MINP PRN SL 09/01/24 10:30 Piperacillin Sod/ Tazobactam Sod 100 ml @ 25 mls/hr Q6HR IV 09/01/24 18:00 UNV Pantoprazole Sodium 40 mg DAILY IV 09/04/24 10:00 09/25/24 09:29 40 MG Enoxaparin Sodium 40 mg DAILY SC 09/04/24 10:00 09/25/24 09:37 40 MG Budesonide 0.5 mg BID NEB 09/04/24 10:00 09/25/24 18:13 0.5 MG Insulin Glargine 15 units DAILY@1000 SC 09/07/24 10:00 09/25/24 09:36 15 UNITS Acetaminophen 650 mg Q6HP PRN PO 09/09/24 10:45 09/25/24 04:11 650 MG Diagnostic Test (Pha) 1 strip Q6HR 09/10/24 12:00 09/25/24 17:56 1 STRIP Insulin Human Regular Q6HR SC 09/10/24 12:00 09/25/24 17:44 2 UNITS Dextrose 50 ml UD PRN IV 09/10/24 08:15 Azithromycin 250 ml @ 125 mls/hr DAILY IV 09/12/24 10:00 09/25/24 09:29 125 MLS/HR Ipratropium [place] 0.5 mg Q6HR NEB 09/13/24 12:00 09/25/24 18:12 0.5 MG Levalbuterol HCl 1.25 mg Q6HR NEB 09/13/24 12:00 09/25/24 18:13 1.25 MG Lorazepam 0.5 mg Q8HP PRN IV 09/15/24 13:15 09/15/24 20:27 0.5 MG Propofol 100 ml @ 3.951 mls/ hr Q24H IV 09/16/24 09:00 09/25/24 19:59 19.755 MLS/HR Midazolam HCl 50 ml @ 1 mls/hr Q24H IV 09/16/24 09:00 09/25/24 22:16 12 MLS/HR Fentanyl Citrate 250 ml @ 2.5 mls/hr Q24H IV 09/16/24 09:00 09/25/24 18:35 22.5 MLS/HR Nystatin 5 ml QID MT 09/16/24 12:00 09/25/24 22:17 5 ML Meropenem 50 ml @ 17 mls/hr Q8HR IV 09/16/24 14:00 09/25/24 22:17 17 MLS/HR Fluconazole 100 ml @ 100 mls/hr DAILY IV 09/17/24 10:00 09/25/24 09:29 100 MLS/HR Norepinephrine Bitartrate 32 mg/ Sodium Chloride 250 ml @ 0.938 mls/ hr Q24H IV 09/16/24 17:45 09/16/24 20:19 6.563 MLS/HR Acetylcysteine 100 mg Q6HR NEB 09/17/24 12:00 09/25/24 18:13 100 MG Purified Water 200 ml Q6HR GT 09/18/24 12:00 09/25/24 17:56 200 ML Vancomycin HCl 0 ml @ 0 mls/hr UD IV 09/19/24 06:45 Enteral Nutritional Formula 1,000 ml 50ML/HR GT 09/21/24 08:30 09/22/24 23:22 1,000 ML Sodium Chloride 10 ml QSHIFT@10,22 IV 09/23/24 22:00 09/25/24 22:18 10 ML Furosemide 40 mg BID IV 09/24/24 10:00 09/25/24 22:17 40 MG Metoclopramide HCl 10 mg Q8HR IV 09/24/24 14:00 09/25/24 22:17 10 MG Lactulose 30 ml BID GT 09/24/24 10:00 09/25/24 22:17 30 ML Vancomycin HCl 250 ml @ 200 mls/hr Q8HR@0000,0800,1600 IV 09/25/24 00:00 09/25/24 15:25 200 MLS/HR objective Gen.: Patient lying in bed in medical ICU. Sedated, intubated on mechanical ventilator. Head: Normocephalic, atraumatic. Eyes: PERRLA. Ears: Normal external anatomy. Throat: Endotracheal tube and orogastric tube in place. Neck: Supple, trachea midline. Chest: Transmitted breath sounds bilaterally. Decreased air entry bilaterally. No wheezing. Bibasilar crackles. Cardiovascular: Positive S1, positive S2. Regular rate and rhythm. Abdomen: Positive bowel sounds in all 4 quadrants. Soft, nontender, nondistended. : Teague in place. Normal external genitalia. Rectal: Deferred. Skin: Warm, dry. Intact. Extremities: 2+ radial pulses bilaterally. No lower extremity edema. Neuro: Sedated. laboratory and microbiology Laboratory Tests 09/25/24 03:30 Test 09/25/24 03:30 Range/Units Serum Glucose 107 H 74-106 mg/dL Assessment/Plan Impression: Acute hypoxic respiratory failure Acute hypercarbic respiratory failure On mechanical ventilator Pleural effusions Atelectasis Morbid obesity with a BMI of 44.8 Pulmonary edema Acute exacerbation of COPD vs Asthma Elevated troponin Events: Remains on vent support On AC mode with RR 24, VT 600, PEEP 12, FIO2 75% Taper FiO2 as tolerated Remains on high PEEP + FiO2 requirements Sedated on Propofol, Versed/Fentanyl Off pressors, hemodynamically stable ABG reviewed, compensated Chest x-ray demonstrates pulmonary congestion. Small bilateral pleural effusions. Devices in place. Continue bronchodilators Continue antibiotics/antifungal Monitor WBC Patient spiking fevers - obtain pancultures Hold risperidone - concern it may be the culprit for fevers. Diurese w/ Lasix as tolerated Monitor renal function Monitor electrolytes. Supplement as necessary. Tube feeds for nutritional support S/p therapeutic bronchoscopy on 09/24/24 with clearing of secretions/mucous plugging from L1-L3 and R1-R3 and R6-R10. Taper FiO2 as tolerated Recommend trach + PEG for liberation from vent once FiO2 and PEEP requirements improved. 09/18/24 - S/p therapeutic bronchoscopy w/ RLL BAL. Mucous plugging cleared from L1-L3 and L6-L10 and R1-R3 and R6-R10 See separate procedure note for details 09/16/24 - S/p bronchoscopy w/ bronchoalveolar lavage, removed copious mucous plugs from RUL/RLL + FROYLAN. See separate procedure note for details. Labs and imaging reviewed. Rest of plan as noted below. Plan: s/p re-intubation, on mechanical ventilator On AC mode with RR 24, VT 600, PEEP 12, FIO2 75% Taper FiO2 as tolerated Sedated for vent synchrony Bronchodilators Steroids - completed Pressors if necessary for hemodynamic support. Titrate to keep MAP above 65 mmHg/SBP above 90 mmHg. F/u Echo to evaluate LVEF, RVSP and r/o valvular dysfunction. F/u Cardiology recommendations Plan for CTA of chest to r/o PE. Antibiotics F/u cultures. Positive GPC in blood cultures. Maintain euvolemia Monitor renal function due to Acute kidney injury. Monitor electrolytes. Supplement as necessary. Nutritional support. Accu-Cheks, ISS. Morbid obesity, complicates all care. Diet and lifestyle modifications for weight reduction recommended. GI/DVT prophylaxis. Condition: Critical Prognosis: Poor given multiple comorbidities. Rest of plan per hospitalist and other consultants. A total of 35 minutes of critical care time was spent reviewing the patient record, examining the patient, making a diagnostic and therapeutic plan, discussing this plan with the medical personnel, following up on diagnostic studies and following the patient for clinical stability excluding any and all procedures. At least 50% of this time was spent in direct, [id number] contact. Thank you ANAHI Montoya for allowing me to participate in this patient's care. Further recommendations will depend on patient's clinical course. Please do not hesitate to contact me if you have any questions or concerns. This medical document was created using an electronic medical record system with [employer] system. Although this document has been carefully reviewed, there may still be some phonetic and typographical errors. These areas are purely typographical due to imperfections of the software programs, and do not reflect any compromise in the patient's medical care. Dietary Evaluation Review Recommendations by RD: Increase Calorie Intake Comments: 1. Increase TF as tolerated to goal rate to 50 mL/hr.Goal rate will provide ~ 87 daily estimated energy needs and ~60% daily estimated protein needs. 2. Advance to CCHO 60g diet pending JOB TRAINER approval when medically feasible. 3. Continue to monitor patient's weight and labs. Expected Outcomes/Goals: 1. labs to improve 2. diet to advance 3. continue plan of care 4. f/u in 2-3 days Plan discussed with: Other (FERNANDO Livingston) Critical Care Time(min): 35 LIZ GUDINO MD Sep 25, 2024 23:06
[2024-09-26] VITALS (109 sets, daily range): BP systolic 73–126; BP diastolic 28–78; PULSE 81–111; RESP 12–24; TEMP 96.8–100.4; O2SAT 91–100
[2024-09-26 03:44] LABS: Basophils # (auto) 0 10 ^3/uL (0-0.2); Basophils % (auto) 0.3 % (0.0-2.0); Eosinophils # (auto) 0.3 10 ^3/uL (0-0.8); Eosinophils % (auto) 2.4 % (0.0-7.0); Hematocrit 37.4 % (41.0-53.0); Hemoglobin 12.3 g/dL (13.5-17.5); Lymphocytes # (auto) 1.4 10 ^3/uL (0.4-5.4); Lymphocytes % (auto) 10.8 % (10.0-50.0); Mean Corpuscular Hemoglobin 30.4 pg (28.0-32.0); Mean Corpuscular Hgb Conc. 32.9 g/dL (32.0-36.0); Mean Corpuscular Volume 92.4 fL (80.0-100.0); Monocytes % (auto) 7.7 % (0.0-12.0); Neutrophils # (auto) 10.2 10 ^3/uL (1.6-8.6); Neutrophils % (auto) 78.8 % (37.0-80.0); Platelet Count (auto) 281 10^3/uL (140-450); Red Blood Cells 4.04 10^6/uL (4.5-5.90); Red Cell Distribution Width 14.2 % (11.8-14.3)
[2024-09-26 04:19] LABS: Anion Gap 6 (5-15); Carbon Dioxide 30 mmol/L (20-31); Chloride 105 mmol/L (98-107); Sodium 141 mmol/L (136-145)
[2024-09-26 04:20] LABS: Calcium 10.1 mg/dL (8.7-10.4)
[2024-09-26 04:24] LABS: BUN/Creatinine Ratio 27.5 (10.0-20.0); Blood Urea Nitrogen 14 mg/dL (9-23)
[2024-09-26 04:26] LABS: Glucose 110 mg/dL (74-106); Potassium 3.5 mmol/L (3.5-5.1)
--- NOTE | 2024-09-26 05:50 | DVH ---
CHEST RADIOGRAPH Indication: pna Technique: Single frontal view of the chest was obtained COMPARISON: XY CHEST PORTABLE on DOS: 09/25/24, XY CHEST PORTABLE on DOS: 09/24/24, XY CHEST PORTABLE o n DOS: 09/24/24, XY CHEST PORTABLE on DOS: 09/23/24, XY CHEST PORTABLE on DOS: 09/23/24 FINDINGS: Lines and Tubes: Unchanged Lungs: Atelectasis in both lower lobes. Pleura: Probable posterior layering of pleural effusions. No pneumothorax. Cardiomediastinal contours: Unchanged Bones: Unremarkable IMPRESSION: 1. Atelectasis in both lower lobes with probable bilateral pleural effusions.
[2024-09-26 07:20] LABS: Base Excess 7.1 mmol/L (-2.0-3.0)
[2024-09-26] MEDS ORDERED: risperiDONE 1 MG TAB PO SCH (10:00)
[2024-09-26] MEDS: PROPOFOL 100 ML IV SCH (12:35)
[2024-09-26] MEDS: POTASSIUM CHL 20MEQ/100ML 100 ML IV ONE (12:35)
--- NOTE | 2024-09-26 14:05 | DVHPN2 ---
Subjective The patient is seen and examined at bedside. Remained intubated. Fever on and of, usually above 100.5. Cooling measure, Tylenol, antibiotic on board but the patient continuing to have fever. Today was around 99.9 Reviewed: Care Plan, H&P, Labs, Medications, Previous Orders, Radiology, Other (Consultants) Changes from previous H/P or p: No Changes General: Per HPI Objective Vitals Vital Signs Date Time Temp Pulse Resp B/P (MAP) Pulse Ox O2 Delivery O2 Flow Rate FiO2 09/26/24 13:59 96 24 97/52 (67) 96 60 09/26/24 13:30 100.4 212.7 09/26/24 12:00 Mechanical Ventilator+ Intake/Output Intake and Output 09/26/24 07:00 Intake Total 4145.220 ml Output Total 3800 ml Balance 345.220 ml Intake Oral 1050 ml IV Total 2555.220 ml Tube Feeding 540 ml Output Urine Total 3800 ml # Bowel Movements 1 General Appearance: moderate distress, Other (intubated and sedated ) HEENT: Atraumatic, Other (Pinpoint pupils) Lungs: Clear to auscultation, Other (On the vent) Cardiovascular: Regular rate, Normal S1, Normal S2 Abdomen: Normal bowel sounds, Soft Musculoskeletal: Weak motor strength RUE, Weak motor strength LUE, Weak motor strength RLE, Weak motor strength LLE Extremities: Other (1+ bilateral lower extremities edema) Skin: Dry, Intact Psych/Mental Status: Other (intubated and sedated ) Medications Current Medications Medications Dose Ordered Sig/Felicitas Route Start Time Stop Time Status Last Admin Dose Admin Ondansetron HCl 4 mg Q4HP PRN IV 09/01/24 10:30 Nitroglycerin 0.4 mg Q5MINP PRN SL 09/01/24 10:30 Piperacillin Sod/ Tazobactam Sod 100 ml @ 25 mls/hr Q6HR IV 09/01/24 18:00 UNV Pantoprazole Sodium 40 mg DAILY IV 09/04/24 10:00 09/26/24 09:58 40 MG Budesonide 0.5 mg BID NEB 09/04/24 10:00 09/26/24 06:00 0.5 MG Insulin Glargine 15 units DAILY@1000 SC 09/07/24 10:00 09/25/24 09:36 15 UNITS Acetaminophen 650 mg Q6HP PRN PO 09/09/24 10:45 09/26/24 12:35 650 MG Diagnostic Test (Pha) 1 strip Q6HR 09/10/24 12:00 09/26/24 11:44 1 STRIP Insulin Human Regular Q6HR SC 09/10/24 12:00 09/25/24 17:44 2 UNITS Dextrose 50 ml UD PRN IV 09/10/24 08:15 Azithromycin 250 ml @ 125 mls/hr DAILY IV 09/12/24 10:00 09/26/24 09:58 125 MLS/HR Ipratropium [place] 0.5 mg Q6HR NEB 09/13/24 12:00 09/26/24 11:24 0.5 MG Levalbuterol HCl 1.25 mg Q6HR NEB 09/13/24 12:00 09/26/24 11:24 1.25 MG Lorazepam 0.5 mg Q8HP PRN IV 09/15/24 13:15 09/15/24 20:27 0.5 MG Midazolam HCl 50 ml @ 1 mls/hr Q24H IV 09/16/24 09:00 09/26/24 10:41 11 MLS/HR Fentanyl Citrate 250 ml @ 2.5 mls/hr Q24H IV 09/16/24 09:00 09/26/24 04:28 22.5 MLS/HR Nystatin 5 ml QID MT 09/16/24 12:00 09/26/24 11:45 5 ML Meropenem 50 ml @ 17 mls/hr Q8HR IV 09/16/24 14:00 09/26/24 04:54 17 MLS/HR Fluconazole 100 ml @ 100 mls/hr DAILY IV 09/17/24 10:00 09/26/24 09:58 100 MLS/HR Norepinephrine Bitartrate 32 mg/ Sodium Chloride 250 ml @ 0.938 mls/ hr Q24H IV 09/16/24 17:45 09/16/24 20:19 6.563 MLS/HR Acetylcysteine 100 mg Q6HR NEB 09/17/24 12:00 09/26/24 11:24 100 MG Purified Water 200 ml Q6HR GT 09/18/24 12:00 09/26/24 11:44 200 ML Vancomycin HCl 0 ml @ 0 mls/hr UD IV 09/19/24 06:45 Enteral Nutritional Formula 1,000 ml 50ML/HR GT 09/21/24 08:30 09/22/24 23:22 1,000 ML Sodium Chloride 10 ml QSHIFT@10,22 IV 09/23/24 22:00 09/26/24 09:59 10 ML Furosemide 40 mg BID IV 09/24/24 10:00 09/26/24 09:58 40 MG Metoclopramide HCl 10 mg Q8HR IV 09/24/24 14:00 09/26/24 05:04 10 MG Lactulose 30 ml BID GT 09/24/24 10:00 09/26/24 09:58 30 ML Vancomycin HCl 250 ml @ 200 mls/hr Q8HR@0000,0800,1600 IV 09/25/24 00:00 09/26/24 08:13 200 MLS/HR Propofol 100 ml @ 4.065 mls/ hr Q24H IV 09/26/24 11:45 09/26/24 12:35 16.26 MLS/HR Laboratory Results Laboratory Tests 09/26/24 03:15 Chemistry Test 09/26/24 03:15 Calcium Level 10.1 mg/dL (8.7-10.4) Blood Gas Results Test 09/26/24 07:04 Arterial Blood pH 7.455 (7.350-7.450) FiO2 % 60.0 Microbiology Microbiology Date/Time Source Procedure Growth Status 09/18/24 13:26 Bronchial Washings Gram Stain - Final Complete 09/18/24 13:26 Bronchial Washings Respiratory Culture - Final Complete 09/16/24 15:15 Urine - [place] Urine Culture - Final Complete 09/16/24 15:13 Other Endotracheal Wash Gram Stain - Final Complete 09/16/24 15:13 Respiratory Culture - Final Methicillin Resistant S.aureus Complete 09/12/24 04:15 Blood Blood Culture - Final Staph hominis subsp homins Complete Labs and/or images reviewed: Labs reviewed by me Assessment/Plan Assessment/Plan -acute hypoxic and hypercarbic respiratory failure with failure of noninvasive positive pressure ventilation -community-acquired pneumonia, MRSA -morbid obesity -nicotine dependence -sepsis -history of schizophrenia -NSTEMI type 2 -Persistent fever. Plan: The patient continues to be on FiO2 75% with a PEEP of 12. The patient continuing to have fever 100 and above. Pharmacist called today in recommend to review psych medication that can induce fever , or neuroleptic malignant syndrome. I am going to hold the patient's risperidone and see if the fever improved. If temperature greater than 100.5 anticipate to repeat urine culture, blood culture. -continue tube feeding, -continue bowel regimen -continue regular insulin sliding scale, Lantus 15 units daily -pulmonology consultation: Continue recommendations -Continue antibiotic therapy with meropenem, Diflucan, vancomycin -Solu-Medrol to 40 mg daily -burrell cultures: MRSA of the sputum. -continue DVT prophylaxis -PUD prophylaxis -continue bronchodilators, Pulmicort, Mucomyst -PICC line, A-line placement -repeat labs, chest x-ray, ABG in a.m. -goals care include tracheostomy with PEG tube placement. Discussed with patient was sister in detail yesterday who is agreeable this plan in addition to transitioning to a long-term acute care facility -continuing current management. Continuing to hold Risperdal and other psych med. We will follow up with culture. Continuing cooling measure Critical care time spent with patient discussing and formulating plan of care: 40 minutes. This does not include time spent performing procedures. Plan discussed with: Other (RN) My Orders Orders - DIPAK CUMMINGS MD Procedure Category Date Status Time Propofol (Diprivan) PHA 09/26/24 In Process 11:45 Date of Service: Sep 26, 2024 Billing Provider: DIPAK CUMMINGS MD Common Visit Codes: [id number] INP/OBS CARE(HIGH) DIPAK CUMMINGS MD Sep 26, 2024 14:05
--- NOTE | 2024-09-26 23:30 | DVHPN2 ---
Progress Note - Dictate Date Seen: Sep 26, 2024 Medical Necessity Reason Pt with a Central, PICC or Fol: Yes The following are medically ne: Teague Catheter Reason for teague catheter: Strict I&O Subjective Patient seen and examined at bedside. Sedated, intubated on mechanical ventilator. Overnight events reviewed. vital signs Vital Sign Date Time Temp Pulse Resp B/P (MAP) Pulse Ox O2 Delivery O2 Flow Rate FiO2 09/26/24 22:15 99.7 93 24 101/49 (66) 97 211.5 09/26/24 22:00 50 09/26/24 22:00 Mechanical Ventilator+ Total Intake and Output 09/25/24 09/25/24 09/26/24 15:00 23:00 07:00 Intake Total 1102.040 ml 1628.040 ml 1412.540 ml Output Total 2250 ml 1550 ml Balance 1102.040 ml -621.960 ml -137.460 ml medications Current Medications Medications Dose Ordered Sig/Felicitas Route Start Time Stop Time Status Last Admin Dose Admin Ondansetron HCl 4 mg Q4HP PRN IV 09/01/24 10:30 Nitroglycerin 0.4 mg Q5MINP PRN SL 09/01/24 10:30 Piperacillin Sod/ Tazobactam Sod 100 ml @ 25 mls/hr Q6HR IV 09/01/24 18:00 UNV Pantoprazole Sodium 40 mg DAILY IV 09/04/24 10:00 09/26/24 09:58 40 MG Budesonide 0.5 mg BID NEB 09/04/24 10:00 09/26/24 18:32 0.5 MG Insulin Glargine 15 units DAILY@1000 SC 09/07/24 10:00 09/25/24 09:36 15 UNITS Acetaminophen 650 mg Q6HP PRN PO 09/09/24 10:45 09/26/24 12:35 650 MG Diagnostic Test (Pha) 1 strip Q6HR 09/10/24 12:00 09/26/24 17:56 1 STRIP Insulin Human Regular Q6HR SC 09/10/24 12:00 09/25/24 17:44 2 UNITS Dextrose 50 ml UD PRN IV 09/10/24 08:15 Azithromycin 250 ml @ 125 mls/hr DAILY IV 09/12/24 10:00 09/26/24 09:58 125 MLS/HR Ipratropium [place] 0.5 mg Q6HR NEB 09/13/24 12:00 09/26/24 18:32 0.5 MG Levalbuterol HCl 1.25 mg Q6HR NEB 09/13/24 12:00 09/26/24 18:32 1.25 MG Lorazepam 0.5 mg Q8HP PRN IV 09/15/24 13:15 09/15/24 20:27 0.5 MG Midazolam HCl 50 ml @ 1 mls/hr Q24H IV 09/16/24 09:00 09/26/24 15:09 11 MLS/HR Fentanyl Citrate 250 ml @ 2.5 mls/hr Q24H IV 09/16/24 09:00 09/26/24 15:10 20 MLS/HR Nystatin 5 ml QID MT 09/16/24 12:00 09/26/24 21:56 5 ML Meropenem 50 ml @ 17 mls/hr Q8HR IV 09/16/24 14:00 09/26/24 21:55 17 MLS/HR Fluconazole 100 ml @ 100 mls/hr DAILY IV 09/17/24 10:00 09/26/24 09:58 100 MLS/HR Norepinephrine Bitartrate 32 mg/ Sodium Chloride 250 ml @ 0.938 mls/ hr Q24H IV 09/16/24 17:45 09/16/24 20:19 6.563 MLS/HR Acetylcysteine 100 mg Q6HR NEB 09/17/24 12:00 09/26/24 18:32 100 MG Purified Water 200 ml Q6HR GT 09/18/24 12:00 09/26/24 17:56 200 ML Vancomycin HCl 0 ml @ 0 mls/hr UD IV 09/19/24 06:45 Enteral Nutritional Formula 1,000 ml 50ML/HR GT 09/21/24 08:30 09/22/24 23:22 1,000 ML Sodium Chloride 10 ml QSHIFT@10,22 IV 09/23/24 22:00 09/26/24 21:56 10 ML Furosemide 40 mg BID IV 09/24/24 10:00 09/26/24 21:56 40 MG Metoclopramide HCl 10 mg Q8HR IV 09/24/24 14:00 09/26/24 21:56 10 MG Lactulose 30 ml BID GT 09/24/24 10:00 09/26/24 21:56 30 ML Vancomycin HCl 250 ml @ 200 mls/hr Q8HR@0000,0800,1600 IV 09/25/24 00:00 09/26/24 16:10 200 MLS/HR Propofol 100 ml @ 4.065 mls/ hr Q24H IV 09/26/24 11:45 09/26/24 21:55 16.26 MLS/HR objective Gen.: Patient lying in bed in medical ICU. Sedated, intubated on mechanical ventilator. Head: Normocephalic, atraumatic. Eyes: PERRLA. Ears: Normal external anatomy. Throat: Endotracheal tube and orogastric tube in place. Neck: Supple, trachea midline. Chest: Transmitted breath sounds bilaterally. Decreased air entry bilaterally. No wheezing. Bibasilar crackles. Cardiovascular: Positive S1, positive S2. Regular rate and rhythm. Abdomen: Positive bowel sounds in all 4 quadrants. Soft, nontender, nondistended. : Teague in place. Normal external genitalia. Rectal: Deferred. Skin: Warm, dry. Intact. Extremities: 2+ radial pulses bilaterally. No lower extremity edema. Neuro: Sedated. laboratory and microbiology Laboratory Tests 09/26/24 03:15 Test 09/26/24 03:15 Range/Units Serum Glucose 110 H 74-106 mg/dL Assessment/Plan Impression: Acute hypoxic respiratory failure Acute hypercarbic respiratory failure On mechanical ventilator Pleural effusions Atelectasis Morbid obesity with a BMI of 44.8 Pulmonary edema Acute exacerbation of COPD vs Asthma Elevated troponin Events: Remains on vent support On AC mode with RR 24, VT 600, PEEP 12, FIO2 75 -->60% Taper FiO2 as tolerated Remains on high PEEP FiO2 requirements improving Sedated on Propofol, Versed/Fentanyl Off pressors, hemodynamically stable ABG reviewed, notable for alkalemia Chest x-ray demonstrates atelectasis in both lower lobes with probable bilateral pleural effusions. No pneumothorax. Devices in place. Continue bronchodilators Continue antibiotics/antifungal Monitor WBC Patient spiking fever - pancultures obtained Risperidone on hold for concern it may be the culprit for fevers. Diurese w/ Lasix as tolerated Monitor renal function Monitor electrolytes. Supplement as necessary. Potassium supplementation Tube feeds for nutritional support Taper FiO2 as tolerated Recommend trach + PEG for liberation from vent once FiO2 and PEEP requirements improved. 09/24/24 - S/p therapeutic bronchoscopy with clearing of secretions/mucous plugging from L1-L3 and R1-R3 and R6-R10. 09/18/24 - S/p therapeutic bronchoscopy w/ RLL BAL. Mucous plugging cleared from L1-L3 and L6-L10 and R1-R3 and R6-R10 See separate procedure note for details 09/16/24 - S/p bronchoscopy w/ bronchoalveolar lavage, removed copious mucous plugs from RUL/RLL + FROYLAN. See separate procedure note for details. Labs and imaging reviewed. Rest of plan as noted below. Plan: s/p re-intubation, on mechanical ventilator On AC mode with RR 24, VT 600, PEEP 12, FIO2 60% Taper FiO2 as tolerated Sedated for vent synchrony Bronchodilators Steroids - completed Pressors if necessary for hemodynamic support. Titrate to keep MAP above 65 mmHg/SBP above 90 mmHg. F/u Echo to evaluate LVEF, RVSP and r/o valvular dysfunction. F/u Cardiology recommendations Plan for CTA of chest to r/o PE. Antibiotics F/u cultures. Positive GPC in blood cultures. Maintain euvolemia Monitor renal function due to Acute kidney injury. Monitor electrolytes. Supplement as necessary. Nutritional support. Accu-Cheks, ISS. Morbid obesity, complicates all care. Diet and lifestyle modifications for weight reduction recommended. GI/DVT prophylaxis. Condition: Critical Prognosis: Poor given multiple comorbidities. Rest of plan per hospitalist and other consultants. A total of 35 minutes of critical care time was spent reviewing the patient record, examining the patient, making a diagnostic and therapeutic plan, discussing this plan with the medical personnel, following up on diagnostic studies and following the patient for clinical stability excluding any and all procedures. At least 50% of this time was spent in direct, [id number] contact. Thank you ANAHI Montoya for allowing me to participate in this patient's care. Further recommendations will depend on patient's clinical course. Please do not hesitate to contact me if you have any questions or concerns. This medical document was created using an electronic medical record system with [employer] system. Although this document has been carefully reviewed, there may still be some phonetic and typographical errors. These areas are purely typographical due to imperfections of the software programs, and do not reflect any compromise in the patient's medical care. Dietary Evaluation Review Recommendations by RD: Increase Calorie Intake Comments: 1. Increase TF as tolerated to goal rate to 50 mL/hr.Goal rate will provide ~ 87 daily estimated energy needs and ~60% daily estimated protein needs. 2. Advance to CCHO 60g diet pending C[employer]PER[employer] approval when medically feasible. 3. Continue to monitor patient's weight and labs. Expected Outcomes/Goals: 1. labs to improve 2. diet to advance 3. continue plan of care 4. f/u in 2-3 days Plan discussed with: Other (FERNANDO Pierson) Critical Care Time(min): 35 LIZ GUDINO MD Sep 26, 2024 23:30
[2024-09-27] VITALS (103 sets, daily range): BP systolic 86–133; BP diastolic 36–84; PULSE 80–106; RESP 19–24; TEMP 98.8–100.4; O2SAT 90–100
[2024-09-27 03:54] LABS: Basophils # (auto) 0 10 ^3/uL (0-0.2); Basophils % (auto) 0.3 % (0.0-2.0); Eosinophils # (auto) 0.3 10 ^3/uL (0-0.8); Eosinophils % (auto) 2.7 % (0.0-7.0); Hematocrit 35.7 % (41.0-53.0); Hemoglobin 11.6 g/dL (13.5-17.5); Lymphocytes # (auto) 1.6 10 ^3/uL (0.4-5.4); Lymphocytes % (auto) 14.4 % (10.0-50.0); Mean Corpuscular Hemoglobin 30.1 pg (28.0-32.0); Mean Corpuscular Hgb Conc. 32.5 g/dL (32.0-36.0); Mean Corpuscular Volume 92.4 fL (80.0-100.0); Monocytes # (auto) 1.1 10 ^3/uL (0-1.3); Neutrophils # (auto) 8.1 10 ^3/uL (1.6-8.6); Neutrophils % (auto) 72.6 % (37.0-80.0); Nucleated Red Blood Cells % 0.1 %; Platelet Count (auto) 293 10^3/uL (140-450); Red Blood Cells 3.86 10^6/uL (4.5-5.90); White Blood Cell 11.2 10^3/uL (4.4-10.8)
[2024-09-27 04:29] LABS: Calcium 10.3 mg/dL (8.7-10.4); Chloride 102 mmol/L (98-107); Potassium 3.9 mmol/L (3.5-5.1); Sodium 141 mmol/L (136-145)
[2024-09-27 04:30] LABS: Anion Gap 8 (5-15)
[2024-09-27 04:35] LABS: BUN/Creatinine Ratio 23.6 (10.0-20.0); Blood Urea Nitrogen 13 mg/dL (9-23); Glucose 100 mg/dL (74-106)
[2024-09-27 04:36] LABS: Carbon Dioxide 31 mmol/L (20-31); Magnesium 1.8 mg/dL (1.6-2.6)
--- NOTE | 2024-09-27 05:07 | DVH ---
CHEST RADIOGRAPH Indication: pna Technique: Single frontal view of the chest was obtained Comparison: XY CHEST PORTABLE on DOS: 09/26/24 FINDINGS: Lines and Tubes: The endotracheal tube terminates 8.2 cm above the alf. The enteric tube courses b elow the left hemidiaphragm and the tip extends outside the field of view. Right PICC terminates in t he superior vena cava. Lungs: Patchy bilateral opacities similar to prior study. Pleura: Possible bilateral pleural effusions. No pneumothorax. Cardiomediastinal contours: Unremarkable Bones: No acute osseous abnormality. IMPRESSION: 1. Appropriate position of the support lines and tubes. 2. No significant change in bilateral opacities. 3. Possible bilateral pleural effusions.
[2024-09-27 07:03] LABS: Base Excess 6.9 mmol/L (-2.0-3.0)
--- NOTE | 2024-09-27 09:15 | DVHPN2 ---
Subjective Intubated and chemically sedated. Reviewed: Care Plan, H&P, Labs, Medications, Previous Orders, Radiology, Other (Consultants) Changes from previous H/P or p: No Changes General: Per HPI Objective Vitals Vital Signs Date Time Temp Pulse Resp B/P (MAP) Pulse Ox O2 Delivery O2 Flow Rate FiO2 09/27/24 08:00 99.7 99 24 129/60 (83) 96 211.5 09/27/24 08:00 45 09/27/24 08:00 Mechanical Ventilator+ Intake/Output Intake and Output 09/27/24 07:00 Intake Total 3252.416 ml Output Total 3500 ml Balance -247.584 ml Intake Oral 60 ml IV Total 2432.416 ml Tube Feeding 360 ml Other 400 ml Output Urine Total 3500 ml General Appearance: moderate distress, Other (intubated and sedated ) HEENT: Atraumatic, Other (Pinpoint pupils) Lungs: Clear to auscultation, Other (On the vent) Cardiovascular: Regular rate, Normal S1, Normal S2 Abdomen: Normal bowel sounds, Soft Musculoskeletal: Weak motor strength RUE, Weak motor strength LUE, Weak motor strength RLE, Weak motor strength LLE Extremities: Other (1+ bilateral lower extremities edema) Skin: Dry, Intact Psych/Mental Status: Other (intubated and sedated ) Medications Current Medications Medications Dose Ordered Sig/Felicitas Route Start Time Stop Time Status Last Admin Dose Admin Ondansetron HCl 4 mg Q4HP PRN IV 09/01/24 10:30 Nitroglycerin 0.4 mg Q5MINP PRN SL 09/01/24 10:30 Piperacillin Sod/ Tazobactam Sod 100 ml @ 25 mls/hr Q6HR IV 09/01/24 18:00 UNV Pantoprazole Sodium 40 mg DAILY IV 09/04/24 10:00 09/26/24 09:58 40 MG Budesonide 0.5 mg BID NEB 09/04/24 10:00 09/27/24 05:30 0.5 MG Insulin Glargine 15 units DAILY@1000 SC 09/07/24 10:00 09/25/24 09:36 15 UNITS Acetaminophen 650 mg Q6HP PRN PO 09/09/24 10:45 09/27/24 00:29 650 MG Diagnostic Test (Pha) 1 strip Q6HR 09/10/24 12:00 09/27/24 06:23 1 STRIP Insulin Human Regular Q6HR SC 09/10/24 12:00 09/25/24 17:44 2 UNITS Dextrose 50 ml UD PRN IV 09/10/24 08:15 Azithromycin 250 ml @ 125 mls/hr DAILY IV 09/12/24 10:00 09/26/24 09:58 125 MLS/HR Ipratropium [place] 0.5 mg Q6HR NEB 09/13/24 12:00 09/27/24 05:30 0.5 MG Levalbuterol HCl 1.25 mg Q6HR NEB 09/13/24 12:00 09/27/24 05:30 1.25 MG Lorazepam 0.5 mg Q8HP PRN IV 09/15/24 13:15 09/15/24 20:27 0.5 MG Midazolam HCl 50 ml @ 1 mls/hr Q24H IV 09/16/24 09:00 09/27/24 04:45 11 MLS/HR Fentanyl Citrate 250 ml @ 2.5 mls/hr Q24H IV 09/16/24 09:00 09/27/24 03:34 20 MLS/HR Nystatin 5 ml QID MT 09/16/24 12:00 09/27/24 06:27 5 ML Meropenem 50 ml @ 17 mls/hr Q8HR IV 09/16/24 14:00 09/27/24 06:26 17 MLS/HR Fluconazole 100 ml @ 100 mls/hr DAILY IV 09/17/24 10:00 09/26/24 09:58 100 MLS/HR Norepinephrine Bitartrate 32 mg/ Sodium Chloride 250 ml @ 0.938 mls/ hr Q24H IV 09/16/24 17:45 09/16/24 20:19 6.563 MLS/HR Acetylcysteine 100 mg Q6HR NEB 09/17/24 12:00 09/27/24 05:30 100 MG Purified Water 200 ml Q6HR GT 09/18/24 12:00 09/27/24 06:23 200 ML Vancomycin HCl 0 ml @ 0 mls/hr UD IV 09/19/24 06:45 Enteral Nutritional Formula 1,000 ml 50ML/HR GT 09/21/24 08:30 09/22/24 23:22 1,000 ML Sodium Chloride 10 ml QSHIFT@10,22 IV 09/23/24 22:00 09/26/24 21:56 10 ML Furosemide 40 mg BID IV 09/24/24 10:00 09/26/24 21:56 40 MG Metoclopramide HCl 10 mg Q8HR IV 09/24/24 14:00 09/27/24 06:27 10 MG Lactulose 30 ml BID GT 09/24/24 10:00 09/26/24 21:56 30 ML Vancomycin HCl 250 ml @ 200 mls/hr Q8HR@0000,0800,1600 IV 09/25/24 00:00 09/27/24 08:18 200 MLS/HR Propofol 100 ml @ 4.065 mls/ hr Q24H IV 09/26/24 11:45 09/27/24 05:20 16.26 MLS/HR Laboratory Results Laboratory Tests 09/27/24 03:10 Chemistry Test 09/27/24 03:10 Calcium Level 10.3 mg/dL (8.7-10.4) Magnesium Level 1.8 mg/dL (1.6-2.6) Blood Gas Results Test 09/27/24 06:59 Arterial Blood pH 7.505 (7.350-7.450) FiO2 % 50.0 Microbiology Microbiology Date/Time Source Procedure Growth Status 09/18/24 13:26 Bronchial Washings Gram Stain - Final Complete 09/18/24 13:26 Bronchial Washings Respiratory Culture - Final Complete 09/16/24 15:15 Urine - [place] Urine Culture - Final Complete 09/16/24 15:13 Other Endotracheal Wash Gram Stain - Final Complete 09/16/24 15:13 Respiratory Culture - Final Methicillin Resistant S.aureus Complete 09/12/24 04:15 Blood Blood Culture - Final Staph hominis subsp homins Complete Labs and/or images reviewed: Labs reviewed by me, Image(s) reviewed by me Assessment/Plan Assessment/Plan Impression: -acute hypoxic and hypercarbic respiratory failure with failure of noninvasive positive pressure ventilation -community-acquired pneumonia, MRSA -morbid obesity -nicotine dependence -sepsis -history of schizophrenia -NSTEMI type 2 Plan: Events: FIO2 45%, Peep will decrease to 10. -Surgical consult -continue tube feeding, -Add bowel regimen -continue regular insulin sliding scale, Lantus 15 units daily -pulmonology consultation: Continue recommendations. Bronch 09/24 -Cantibiotic therapy to meropenem, Diflucan, vancomycin -Solu-Medrol to 40 mg daily -De-escalate abx -continue DVT prophylaxis -PUD prophylaxis -continue bronchodilators, Pulmicort, Mucomyst -repeat labs, chest x-ray, ABG in a.m. -goals care include tracheostomy with PEG tube placement. Critical care time spent with patient discussing and formulating plan of care: 40 minutes. This does not include time spent performing procedures. This medical document was created using an electronic medical record system with [employer] dictation system. Although this document has been carefully reviewed, there may still be some phonetic and typographical errors. These areas are purely typographical due to imperfections of the software programs, and do not reflect any compromise in the patient's medical care. Plan discussed with: Patient, Other (RN) My Orders Orders - ZUHAIR GUILLORY NP Procedure Category Date Status Time Vancomycin Per RAMANA 09/27/24 In Process Pharmacy Protoc 08:00 Abg W/ Co-Ox RT 09/27/24 Logged 05:16 Doxycycline PHA 09/27/24 Verified 100mg/100ml 09:15 Ventilator Orders RT 09/27/24 Verified 09:06 Basic Metabolic Panel LAB 09/28/24 Verified 05:00 Basic Metabolic Panel LAB 09/29/24 Verified 05:00 Basic Metabolic Panel LAB 09/30/24 Verified 05:00 Basic Metabolic Panel LAB 10/01/24 Verified 05:00 Complete Blood Count LAB 09/28/24 Verified 05:00 Complete Blood Count LAB 09/29/24 Verified 05:00 Complete Blood Count LAB 09/30/24 Verified 05:00 Complete Blood Count LAB 10/01/24 Verified 05:00 Chest Portable XY 09/28/24 Verified 05:00 Chest Portable XY 09/29/24 Verified 05:00 Chest Portable XY 09/30/24 Verified 05:00 * Surgical Consult CONS 09/27/24 Verified Date of Service: Sep 27, 2024 Billing Provider: ZUHAIR GUILLORY NP Common Visit Codes: [id number] CARE 30-74 MIN ZUHAIR GUILLORY NP Sep 27, 2024 09:15
[2024-09-27] MEDS: DOXYCYCLINE 100MG/100ML 100 ML IV SCH (09:38)
[2024-09-27] MEDS: MAGNESIUM SULFATE 1GM/100ML 100 ML IV SCH (13:57)
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
[2024-09-27] MEDS: GLYCOPYRROLATE 0.2 MG/ML 1ML VIAL IV ONE (18:04)
--- NOTE | 2024-09-27 19:06 | DVHPN2 ---
Progress Note - Dictate Date Seen: Sep 27, 2024 Medical Necessity Reason Pt with a Central, PICC or Fol: Yes The following are medically ne: Teague Catheter Reason for teague catheter: Strict I&O Subjective Patient seen and examined at bedside. Sedated, intubated on mechanical ventilator. Overnight events reviewed. vital signs Vital Sign Date Time Temp Pulse Resp B/P (MAP) Pulse Ox O2 Delivery O2 Flow Rate FiO2 09/27/24 18:00 45 09/27/24 18:00 98 09/27/24 18:00 24 95 Mechanical Ventilator+ 09/27/24 17:30 98.8 107/59 (75) 209.8 Total Intake and Output 09/26/24 09/26/24 09/27/24 15:00 23:00 07:00 Intake Total 1126.256 ml 1048.08 ml 1078.08 ml Output Total 1600 ml 1900 ml Balance 1126.256 ml -551.92 ml -821.92 ml medications Current Medications Medications Dose Ordered Sig/Felicitas Route Start Time Stop Time Status Last Admin Dose Admin Ondansetron HCl 4 mg Q4HP PRN IV 09/01/24 10:30 Nitroglycerin 0.4 mg Q5MINP PRN SL 09/01/24 10:30 Piperacillin Sod/ Tazobactam Sod 100 ml @ 25 mls/hr Q6HR IV 09/01/24 18:00 UNV Pantoprazole Sodium 40 mg DAILY IV 09/04/24 10:00 09/27/24 09:39 40 MG Budesonide 0.5 mg BID NEB 09/04/24 10:00 09/27/24 05:30 0.5 MG Insulin Glargine 15 units DAILY@1000 SC 09/07/24 10:00 09/25/24 09:36 15 UNITS Acetaminophen 650 mg Q6HP PRN PO 09/09/24 10:45 09/27/24 00:29 650 MG Diagnostic Test (Pha) 1 strip Q6HR 09/10/24 12:00 09/27/24 18:05 1 STRIP Insulin Human Regular Q6HR SC 09/10/24 12:00 09/25/24 17:44 2 UNITS Dextrose 50 ml UD PRN IV 09/10/24 08:15 Ipratropium Martin 0.5 mg Q6HR NEB 09/13/24 12:00 09/27/24 11:41 0.5 MG Levalbuterol HCl 1.25 mg Q6HR NEB 09/13/24 12:00 09/27/24 11:41 1.25 MG Lorazepam 0.5 mg Q8HP PRN IV 09/15/24 13:15 09/15/24 20:27 0.5 MG Midazolam HCl 50 ml @ 1 mls/hr Q24H IV 09/16/24 09:00 09/27/24 14:13 10 MLS/HR Fentanyl Citrate 250 ml @ 2.5 mls/hr Q24H IV 09/16/24 09:00 09/27/24 14:12 20 MLS/HR Nystatin 5 ml QID MT 09/16/24 12:00 09/27/24 18:05 5 ML Norepinephrine Bitartrate 32 mg/ Sodium Chloride 250 ml @ 0.938 mls/ hr Q24H IV 09/16/24 17:45 09/16/24 20:19 6.563 MLS/HR Acetylcysteine 100 mg Q6HR NEB 09/17/24 12:00 09/27/24 11:41 100 MG Purified Water 200 ml Q6HR GT 09/18/24 12:00 09/27/24 18:05 200 ML Enteral Nutritional Formula 1,000 ml 50ML/HR GT 09/21/24 08:30 09/22/24 23:22 1,000 ML Sodium Chloride 10 ml QSHIFT@10,22 IV 09/23/24 22:00 09/27/24 09:39 10 ML Furosemide 40 mg BID IV 09/24/24 10:00 09/27/24 09:38 40 MG Metoclopramide HCl 10 mg Q8HR IV 09/24/24 14:00 09/27/24 13:55 10 MG Lactulose 30 ml BID GT 09/24/24 10:00 09/27/24 09:38 30 ML Propofol 100 ml @ 4.065 mls/ hr Q24H IV 09/26/24 11:45 09/27/24 14:07 16.26 MLS/HR Doxycycline Hyclate 100 ml @ 50 mls/hr Q12HR IV 09/27/24 09:15 09/27/24 09:38 50 MLS/HR objective Gen.: Patient lying in bed in medical ICU. Sedated, intubated on mechanical ventilator. Head: Normocephalic, atraumatic. Eyes: PERRLA. Ears: Normal external anatomy. Throat: Endotracheal tube and orogastric tube in place. Neck: Supple, trachea midline. Chest: Transmitted breath sounds bilaterally. Decreased air entry bilaterally. No wheezing. Bibasilar crackles. Cardiovascular: Positive S1, positive S2. Regular rate and rhythm. Abdomen: Positive bowel sounds in all 4 quadrants. Soft, nontender, nondistended. : Teague in place. Normal external genitalia. Rectal: Deferred. Skin: Warm, dry. Intact. Extremities: 2+ radial pulses bilaterally. No lower extremity edema. Neuro: Sedated. laboratory and microbiology Laboratory Tests 09/27/24 03:10 Test 09/27/24 03:10 Range/Units Serum Glucose 100 74-106 mg/dL Assessment/Plan Impression: Acute hypoxic respiratory failure Acute hypercarbic respiratory failure On mechanical ventilator Pleural effusions Atelectasis Morbid obesity with a BMI of 44.8 Pulmonary edema Acute exacerbation of COPD vs Asthma Elevated troponin Events: Remains on vent support On AC mode with RR 24, VT 600, PEEP 12 -->10, FIO2 60 -->40% Taper FiO2 as tolerated PEEP, FiO2 requirements improving Sedated on Propofol, Versed/Fentanyl Off pressors, hemodynamically stable ABG reviewed, notable for alkalemia Chest x-ray demonstrates patchy bilateral opacities similar to prior study. Possible bilateral pleural effusions. Devices in place. Continue bronchodilators On nystatin Continue antibiotics Monitor WBC Pancultures obtained d/t fevers Blood cultures show no growth after 24 hours Urine cultures show no growth Risperidone on hold for concern it may be the culprit for fevers. Diurese w/ Lasix as tolerated Monitor renal function Monitor electrolytes. Supplement as necessary. Tube feeds for nutritional support Taper FiO2 as tolerated Recommend trach + PEG for liberation from vent once FiO2 and PEEP requirements improved. 09/24/24 - S/p therapeutic bronchoscopy with clearing of secretions/mucous plugging from L1-L3 and R1-R3 and R6-R10. 09/18/24 - S/p therapeutic bronchoscopy w/ RLL BAL. Mucous plugging cleared from L1-L3 and L6-L10 and R1-R3 and R6-R10 See separate procedure note for details 09/16/24 - S/p bronchoscopy w/ bronchoalveolar lavage, removed copious mucous plugs from RUL/RLL + FROYLAN. See separate procedure note for details. Labs and imaging reviewed. Rest of plan as noted below. Plan: s/p re-intubation, on mechanical ventilator On AC mode with RR 24, VT 600, PEEP 10, FIO2 40% Taper FiO2 as tolerated Sedated for vent synchrony Bronchodilators Steroids - completed Pressors if necessary for hemodynamic support. Titrate to keep MAP above 65 mmHg/SBP above 90 mmHg. F/u Echo to evaluate LVEF, RVSP and r/o valvular dysfunction. F/u Cardiology recommendations Plan for CTA of chest to r/o PE. Antibiotics F/u cultures. Maintain euvolemia Monitor renal function due to Acute kidney injury. Monitor electrolytes. Supplement as necessary. Nutritional support. Accu-Cheks, ISS. Morbid obesity, complicates all care. Diet and lifestyle modifications for weight reduction recommended. GI/DVT prophylaxis. Condition: Critical Prognosis: Poor given multiple comorbidities. Rest of plan per hospitalist and other consultants. A total of 35 minutes of critical care time was spent reviewing the patient record, examining the patient, making a diagnostic and therapeutic plan, discussing this plan with the medical personnel, following up on diagnostic studies and following the patient for clinical stability excluding any and all procedures. At least 50% of this time was spent in direct, [id number] contact. Thank you ANAHI Montoya for allowing me to participate in this patient's care. Further recommendations will depend on patient's clinical course. Please do not hesitate to contact me if you have any questions or concerns. This medical document was created using an electronic medical record system with [employer] dictation system. Although this document has been carefully reviewed, there may still be some phonetic and typographical errors. These areas are purely typographical due to imperfections of the software programs, and do not reflect any compromise in the patient's medical care. Dietary Evaluation Review Recommendations by RD: Increase Calorie Intake Comments: 1. Increase TF as tolerated to goal rate to 50 mL/hr.Goal rate will provide ~ 87 daily estimated energy needs and ~60% daily estimated protein needs. 2. Advance to CCHO 60g diet pending [employer] approval when medically feasible. 3. Continue to monitor patient's weight and labs. Expected Outcomes/Goals: 1. labs to improve 2. diet to advance 3. continue plan of care 4. f/u in 2-3 days Plan discussed with: Other (FERNANDO Pierson) Critical Care Time(min): 35 LIZ GUDINO MD Sep 27, 2024 19:06
[2024-09-28] VITALS (94 sets, daily range): BP systolic 78–133; BP diastolic 29–84; PULSE 86–124; RESP 17–26; TEMP 99–99.9; O2SAT 4–98
[2024-09-28 04:14] LABS: Basophils # (auto) 0.1 10 ^3/uL (0-0.2); Basophils % (auto) 0.6 % (0.0-2.0); Eosinophils # (auto) 0.3 10 ^3/uL (0-0.8); Eosinophils % (auto) 2.4 % (0.0-7.0); Hematocrit 42.4 % (41.0-53.0); Hemoglobin 13.3 g/dL (13.5-17.5); Lymphocytes # (auto) 2.8 10 ^3/uL (0.4-5.4); Lymphocytes % (auto) 25.3 % (10.0-50.0); Mean Corpuscular Hgb Conc. 31.4 g/dL (32.0-36.0); Mean Corpuscular Volume 95.5 fL (80.0-100.0); Monocytes # (auto) 1.2 10 ^3/uL (0-1.3); Monocytes % (auto) 11.1 % (0.0-12.0); Neutrophils # (auto) 6.6 10 ^3/uL (1.6-8.6); Neutrophils % (auto) 60.6 % (37.0-80.0); Nucleated Red Blood Cells % 0.1 %; Platelet Count (auto) 285 10^3/uL (140-450); Red Blood Cells 4.44 10^6/uL (4.5-5.90); Red Cell Distribution Width 14.4 % (11.8-14.3); White Blood Cell 10.9 10^3/uL (4.4-10.8)
[2024-09-28 04:30] LABS: Anion Gap 9 (5-15); Carbon Dioxide 25 mmol/L (20-31); Chloride 103 mmol/L (98-107); Potassium 4.1 mmol/L (3.5-5.1); Sodium 137 mmol/L (136-145)
[2024-09-28 04:31] LABS: Calcium 10.3 mg/dL (8.7-10.4)
[2024-09-28 04:35] LABS: Glucose 88 mg/dL (74-106)
[2024-09-28 04:36] LABS: BUN/Creatinine Ratio 15.9 (10.0-20.0); Blood Urea Nitrogen 10 mg/dL (9-23)
--- NOTE | 2024-09-28 05:18 | DVH ---
CHEST RADIOGRAPH Indication: pna Technique: Single frontal view of the chest was obtained Comparison: XY CHEST PORTABLE on DOS: 09/27/24 FINDINGS: Lines and Tubes: The endotracheal tube terminates 6.0 cm above the alf. The enteric tube courses b elow the left hemidiaphragm and the tip extends outside the field of view. Right PICC terminates in t he superior vena cava. Lungs: Patchy bilateral opacities are similar to the prior study Pleura: Stable bilateral pleural effusions. No pneumothorax. Cardiomediastinal contours: Unremarkable Bones: No acute osseous abnormality. IMPRESSION: 1. Stable position of the support lines and tubes. 2. Stable bilateral pleural effusions and bilateral airspace disease.
[2024-09-28 08:23] LABS: Base Excess 4.8 mmol/L (-2.0-3.0)
--- NOTE | 2024-09-28 08:58 | DVHPN2 ---
Subjective Intubated and chemically sedated. Reviewed: Care Plan, H&P, Labs, Medications, Previous Orders, Radiology, Other (Consultants) Changes from previous H/P or p: No Changes General: Per HPI Objective Vitals Vital Signs Date Time Temp Pulse Resp B/P (MAP) Pulse Ox O2 Delivery O2 Flow Rate FiO2 09/28/24 08:15 99.3 122 24 115/56 (75) 92 210.7 09/28/24 08:00 Mechanical Ventilator+ 40 40 Intake/Output Intake and Output 09/28/24 07:00 Intake Total 1860.570 ml Output Total 3500 ml Balance -1639.430 ml Intake Oral 75 ml IV Total 1385.570 ml Other 400 ml Output Urine Total 3500 ml General Appearance: moderate distress, Other (intubated and sedated ) HEENT: Atraumatic, Other (Pinpoint pupils) Lungs: Clear to auscultation, Other (On the vent) Cardiovascular: Regular rate, Normal S1, Normal S2 Abdomen: Normal bowel sounds, Soft Musculoskeletal: Weak motor strength RUE, Weak motor strength LUE, Weak motor strength RLE, Weak motor strength LLE Extremities: Other (1+ bilateral lower extremities edema) Skin: Dry, Intact Psych/Mental Status: Other (intubated and sedated ) Medications Current Medications Medications Dose Ordered Sig/Felicitas Route Start Time Stop Time Status Last Admin Dose Admin Ondansetron HCl 4 mg Q4HP PRN IV 09/01/24 10:30 Nitroglycerin 0.4 mg Q5MINP PRN SL 09/01/24 10:30 Piperacillin Sod/ Tazobactam Sod 100 ml @ 25 mls/hr Q6HR IV 09/01/24 18:00 UNV Pantoprazole Sodium 40 mg DAILY IV 09/04/24 10:00 09/27/24 09:39 40 MG Budesonide 0.5 mg BID NEB 09/04/24 10:00 09/28/24 07:06 0.5 MG Insulin Glargine 15 units DAILY@1000 SC 09/07/24 10:00 09/25/24 09:36 15 UNITS Acetaminophen 650 mg Q6HP PRN PO 09/09/24 10:45 09/27/24 00:29 650 MG Diagnostic Test (Pha) 1 strip Q6HR 09/10/24 12:00 09/28/24 06:36 1 STRIP Insulin Human Regular Q6HR SC 09/10/24 12:00 09/25/24 17:44 2 UNITS Dextrose 50 ml UD PRN IV 09/10/24 08:15 Ipratropium [place] 0.5 mg Q6HR NEB 09/13/24 12:00 09/28/24 07:06 0.5 MG Levalbuterol HCl 1.25 mg Q6HR NEB 09/13/24 12:00 09/28/24 07:06 1.25 MG Lorazepam 0.5 mg Q8HP PRN IV 09/15/24 13:15 09/15/24 20:27 0.5 MG Midazolam HCl 50 ml @ 1 mls/hr Q24H IV 09/16/24 09:00 09/27/24 22:00 10 MLS/HR Fentanyl Citrate 250 ml @ 2.5 mls/hr Q24H IV 09/16/24 09:00 09/28/24 01:22 22.5 MLS/HR Nystatin 5 ml QID MT 09/16/24 12:00 09/28/24 06:36 5 ML Norepinephrine Bitartrate 32 mg/ Sodium Chloride 250 ml @ 0.938 mls/ hr Q24H IV 09/16/24 17:45 09/16/24 20:19 6.563 MLS/HR Acetylcysteine 100 mg Q6HR NEB 09/17/24 12:00 09/28/24 07:08 100 MG Purified Water 200 ml Q6HR GT 09/18/24 12:00 09/28/24 06:00 200 ML Enteral Nutritional Formula 1,000 ml 50ML/HR GT 09/21/24 08:30 09/22/24 23:22 1,000 ML Sodium Chloride 10 ml QSHIFT@10,22 IV 09/23/24 22:00 09/27/24 21:54 10 ML Furosemide 40 mg BID IV 09/24/24 10:00 09/27/24 21:51 40 MG Metoclopramide HCl 10 mg Q8HR IV 09/24/24 14:00 09/28/24 06:35 10 MG Lactulose 30 ml BID GT 09/24/24 10:00 09/27/24 21:47 30 ML Propofol 100 ml @ 4.065 mls/ hr Q24H IV 09/26/24 11:45 09/28/24 00:47 8.13 MLS/HR Doxycycline Hyclate 100 ml @ 50 mls/hr Q12HR IV 09/27/24 09:15 09/27/24 21:48 50 MLS/HR Laboratory Results Laboratory Tests 09/28/24 03:55 Chemistry Test 09/28/24 03:55 Calcium Level 10.3 mg/dL (8.7-10.4) Blood Gas Results Test 09/28/24 08:12 Arterial Blood pH 7.452 (7.350-7.450) FiO2 % 40.0 Microbiology Microbiology Date/Time Source Procedure Growth Status 09/26/24 15:13 Urine - [place] Urine Culture - Preliminary Resulted 09/26/24 13:06 Blood Blood Culture - Preliminary NO GROWTH AFTER 24 HOURS OF INCUBATION. Resulted 09/18/24 13:26 Bronchial Washings Gram Stain - Final Complete 09/18/24 13:26 Bronchial Washings Respiratory Culture - Final Complete 09/16/24 15:13 Other Endotracheal Wash Gram Stain - Final Complete 09/16/24 15:13 Respiratory Culture - Final Methicillin Resistant S.aureus Complete Labs and/or images reviewed: Labs reviewed by me, Image(s) reviewed by me Assessment/Plan Assessment/Plan Impression: -acute hypoxic and hypercarbic respiratory failure with failure of noninvasive positive pressure ventilation -community-acquired pneumonia, MRSA -morbid obesity -nicotine dependence -sepsis -history of schizophrenia -NSTEMI type 2 Plan: Events: FIO2 40%, Peep will decrease to 8. -Surgical consult -continue tube feeding, -Continue Bowel Regimen -continue regular insulin sliding scale, Lantus 12 units daily -pulmonology consultation: Recommendations reviewed -Cantibiotic therapy to meropenem, Diflucan, vancomycin -Solu-Medrol to 40 mg daily -De-escalate abx -continue DVT prophylaxis -PUD prophylaxis -continue bronchodilators, Pulmicort, Mucomyst -repeat labs, chest x-ray, ABG in a.m. -goals care include tracheostomy with PEG tube placement. Critical care time spent with patient discussing and formulating plan of care: 40 minutes. This does not include time spent performing procedures. This medical document was created using an electronic medical record system with [employer] system. Although this document has been carefully reviewed, there may still be some phonetic and typographical errors. These areas are purely typographical due to imperfections of the software programs, and do not reflect any compromise in the patient's medical care. Plan discussed with: Patient, Other (RN) My Orders Orders - ZUHAIR GUILLORY NP Procedure Category Date Status Time Doxycycline PHA 09/27/24 In Process 100mg/100ml 09:15 Basic Metabolic Panel LAB 09/29/24 Verified 05:00 Basic Metabolic Panel LAB 09/30/24 Verified 05:00 Basic Metabolic Panel LAB 10/01/24 Verified 05:00 Complete Blood Count LAB 09/29/24 Verified 05:00 Complete Blood Count LAB 09/30/24 Verified 05:00 Complete Blood Count LAB 10/01/24 Verified 05:00 Chest Portable XY 09/28/24 Resulted 05:00 Chest Portable XY 09/29/24 Logged 05:00 Chest Portable XY 09/30/24 Logged 05:00 * Surgical Consult CONS 09/27/24 Transmitted Abg W/ Co-Ox RT 09/28/24 Logged 05:27 Ventilator Orders RT 09/28/24 Transmitted 08:51 Free Water PHA 09/28/24 Transmitted 12:00 Insulin Lantus PHA 09/28/24 Transmitted (Glargine) (Lantus) 10:00 Glucose Blood PHA 09/28/24 Transmitted (Accu-Chek Comfort 12:00 Mild Sliding Scale PHA 09/28/24 Transmitted Npo - Q6hr 12:00 Dextrose 50% Syringe PHA 09/28/24 Transmitted 09:00 Glycopyrrolate PHA 09/28/24 Transmitted Injection (Robinul 10:00 Date of Service: Sep 28, 2024 Billing Provider: ZUHAIR GUILLORY NP Common Visit Codes: [id number] CARE 30-74 MIN ZUHAIR GUILLORY NP Sep 28, 2024 08:58
[2024-09-28] MEDS ORDERED: DEXTROSE (50%) 50ML SYRG IV PRN (09:00)
[2024-09-28] MEDS: INSULIN LANTUS (GLARGINE) 1 /0.01ml (100units/ml) SC SCH (10:00)
[2024-09-28] MEDS: GLYCOPYRROLATE 0.2 MG/ML 1ML VIAL IV SCH (10:00)
[2024-09-28] MEDS: FREE WATER GT SCH (11:39)
[2024-09-28] MEDS: ACCU-CHEK COMFORT CURVE STRIP VI SCH (11:40)
[2024-09-28] MEDS: InsuLIN REG 1unit/0.01ml Soln (100units/ml) SC SCH (11:43)
--- NOTE | 2024-09-28 21:40 | DVHPN2 ---
Progress Note - Dictate Date Seen: Sep 28, 2024 Medical Necessity Reason Pt with a Central, PICC or Fol: Yes The following are medically ne: Teague Catheter Reason for teague catheter: Strict I&O Subjective Patient seen and examined at bedside. Sedated, intubated on mechanical ventilator. Overnight events reviewed. vital signs Vital Sign Date Time Temp Pulse Resp B/P (MAP) Pulse Ox O2 Delivery O2 Flow Rate FiO2 09/28/24 20:15 99.7 102 23 102/59 (73) 92 211.5 09/28/24 20:05 60 09/28/24 20:00 Mechanical Ventilator+ Total Intake and Output 09/27/24 09/27/24 09/28/24 15:00 23:00 07:00 Intake Total 621.08 ml 443.820 ml 795.67 ml Output Total 1925 ml 1575 ml Balance 621.08 ml -1481.180 ml -779.33 ml medications Current Medications Medications Dose Ordered Sig/Felicitas Route Start Time Stop Time Status Last Admin Dose Admin Ondansetron HCl 4 mg Q4HP PRN IV 09/01/24 10:30 Nitroglycerin 0.4 mg Q5MINP PRN SL 09/01/24 10:30 Piperacillin Sod/ Tazobactam Sod 100 ml @ 25 mls/hr Q6HR IV 09/01/24 18:00 UNV Pantoprazole Sodium 40 mg DAILY IV 09/04/24 10:00 09/28/24 09:57 40 MG Budesonide 0.5 mg BID NEB 09/04/24 10:00 09/28/24 07:06 0.5 MG Acetaminophen 650 mg Q6HP PRN PO 09/09/24 10:45 09/27/24 00:29 650 MG Diagnostic Test (Pha) 1 strip Q6HR 09/10/24 12:00 09/28/24 17:51 1 STRIP Dextrose 50 ml UD PRN IV 09/10/24 08:15 Ipratropium [place] 0.5 mg Q6HR NEB 09/13/24 12:00 09/28/24 18:36 0.5 MG Levalbuterol HCl 1.25 mg Q6HR NEB 09/13/24 12:00 09/28/24 18:36 1.25 MG Lorazepam 0.5 mg Q8HP PRN IV 09/15/24 13:15 09/15/24 20:27 0.5 MG Midazolam HCl 50 ml @ 1 mls/hr Q24H IV 09/16/24 09:00 09/28/24 18:55 10 MLS/HR Fentanyl Citrate 250 ml @ 2.5 mls/hr Q24H IV 09/16/24 09:00 09/28/24 11:06 27.5 MLS/HR Nystatin 5 ml QID MT 09/16/24 12:00 09/28/24 17:51 5 ML Norepinephrine Bitartrate 32 mg/ Sodium Chloride 250 ml @ 0.938 mls/ hr Q24H IV 09/16/24 17:45 09/16/24 20:19 6.563 MLS/HR Acetylcysteine 100 mg Q6HR NEB 09/17/24 12:00 09/28/24 18:36 100 MG Enteral Nutritional Formula 1,000 ml 50ML/HR GT 09/21/24 08:30 09/22/24 23:22 1,000 ML Sodium Chloride 10 ml QSHIFT@10,22 IV 09/23/24 22:00 09/28/24 09:57 10 ML Furosemide 40 mg BID IV 09/24/24 10:00 09/28/24 09:56 40 MG Metoclopramide HCl 10 mg Q8HR IV 09/24/24 14:00 09/28/24 14:08 10 MG Lactulose 30 ml BID GT 09/24/24 10:00 09/28/24 09:56 30 ML Propofol 100 ml @ 4.065 mls/ hr Q24H IV 09/26/24 11:45 09/28/24 14:58 12.195 MLS/HR Doxycycline Hyclate 100 ml @ 50 mls/hr Q12HR IV 09/27/24 09:15 09/28/24 09:56 50 MLS/HR Purified Water 100 ml Q6HR GT 09/28/24 12:00 09/28/24 17:51 100 ML Insulin Glargine 12 units DAILY@1000 SC 09/28/24 10:00 Insulin Human Regular Q6HR SC 09/28/24 12:00 Dextrose 50 ml UD PRN IV 09/28/24 09:00 Glycopyrrolate 0.2 mg Q12HP IV 09/28/24 10:00 objective Gen.: Patient lying in bed in medical ICU. Sedated, intubated on mechanical ventilator. Head: Normocephalic, atraumatic. Eyes: PERRLA. Ears: Normal external anatomy. Throat: Endotracheal tube and orogastric tube in place. Neck: Supple, trachea midline. Chest: Transmitted breath sounds bilaterally. Decreased air entry bilaterally. No wheezing. Bibasilar crackles. Cardiovascular: Positive S1, positive S2. Regular rate and rhythm. Abdomen: Positive bowel sounds in all 4 quadrants. Soft, nontender, nondistended. : Teague in place. Normal external genitalia. Rectal: Deferred. Skin: Warm, dry. Intact. Extremities: 2+ radial pulses bilaterally. No lower extremity edema. Neuro: Sedated. laboratory and microbiology Laboratory Tests 09/28/24 03:55 Test 09/28/24 03:55 Range/Units Serum Glucose 88 74-106 mg/dL Assessment/Plan Impression: Acute hypoxic respiratory failure Acute hypercarbic respiratory failure On mechanical ventilator Pleural effusions Atelectasis Morbid obesity with a BMI of 44.8 Pulmonary edema Acute exacerbation of COPD vs Asthma Elevated troponin Events: Remains on vent support On AC mode with RR 24, VT 600, PEEP 10 -->8 -->6, FIO2 40% Taper FiO2 as tolerated Sedated on Propofol, Versed/Fentanyl Off pressors, hemodynamically stable ABG reviewed, notable for alkalemia Chest x-ray demonstrates stable bilateral pleural effusions and bilateral airspace disease. Devices in place. Continue bronchodilators On nystatin Continue antibiotics Monitor WBC Pancultures obtained d/t fevers Blood cultures show no growth after 48 hours Urine cultures show no growth after 48 hours Risperidone on hold for concern it may be the culprit for fevers. Diurese w/ Lasix as tolerated Monitor renal function Monitor electrolytes. Supplement as necessary. Tube feeds for nutritional support Recommend trach + PEG for liberation from vent 09/24/24 - S/p therapeutic bronchoscopy with clearing of secretions/mucous plugging from L1-L3 and R1-R3 and R6-R10. 09/18/24 - S/p therapeutic bronchoscopy w/ RLL BAL. Mucous plugging cleared from L1-L3 and L6-L10 and R1-R3 and R6-R10 See separate procedure note for details 09/16/24 - S/p bronchoscopy w/ bronchoalveolar lavage, removed copious mucous plugs from RUL/RLL + FROYLAN. See separate procedure note for details. Labs and imaging reviewed. Rest of plan as noted below. Plan: s/p re-intubation, on mechanical ventilator On AC mode with RR 24, VT 600, PEEP 6, FIO2 40% Taper FiO2 as tolerated Sedated for vent synchrony Bronchodilators Steroids - completed Pressors if necessary for hemodynamic support. Titrate to keep MAP above 65 mmHg/SBP above 90 mmHg. F/u Echo to evaluate LVEF, RVSP and r/o valvular dysfunction. Cardiology recommendations appreciated Antibiotics F/u cultures. Maintain euvolemia Monitor renal function due to Acute kidney injury. Monitor electrolytes. Supplement as necessary. Nutritional support. Accu-Cheks, ISS. Morbid obesity, complicates all care. Diet and lifestyle modifications for weight reduction recommended. GI/DVT prophylaxis. Condition: Critical Prognosis: Poor given multiple comorbidities. Rest of plan per hospitalist and other consultants. A total of 35 minutes of critical care time was spent reviewing the patient record, examining the patient, making a diagnostic and therapeutic plan, discussing this plan with the medical personnel, following up on diagnostic studies and following the patient for clinical stability excluding any and all procedures. At least 50% of this time was spent in direct, [id number] contact. Thank you ANAHI Montoya for allowing me to participate in this patient's care. Further recommendations will depend on patient's clinical course. Please do not hesitate to contact me if you have any questions or concerns. This medical document was created using an electronic medical record system with [employer] dictation system. Although this document has been carefully reviewed, there may still be some phonetic and typographical errors. These areas are purely typographical due to imperfections of the software programs, and do not reflect any compromise in the patient's medical care. Dietary Evaluation Review Recommendations by RD: Increase Calorie Intake Comments: 1. Increase TF as tolerated to goal rate to 50 mL/hr.Goal rate will provide ~ 87 daily estimated energy needs and ~60% daily estimated protein needs. 2. Advance to CCHO 60g diet pending EXTRUDER approval when medically feasible. 3. Continue to monitor patient's weight and labs. Expected Outcomes/Goals: 1. labs to improve 2. diet to advance 3. continue plan of care 4. f/u in 2-3 days Plan discussed with: Other (FERNANDO Cristina) Critical Care Time(min): 35 LIZ GUDINO MD Sep 28, 2024 21:40
[2024-09-29] VITALS (105 sets, daily range): BP systolic 89–131; BP diastolic 39–83; PULSE 70–114; RESP 10–25; TEMP 99–99.9; O2SAT 87–99
[2024-09-29 03:49] LABS: Basophils # (auto) 0 10 ^3/uL (0-0.2); Basophils % (auto) 0.5 % (0.0-2.0); Eosinophils # (auto) 0.2 10 ^3/uL (0-0.8); Eosinophils % (auto) 2.2 % (0.0-7.0); Hematocrit 35.9 % (41.0-53.0); Hemoglobin 12.1 g/dL (13.5-17.5); Lymphocytes % (auto) 24.7 % (10.0-50.0); Mean Corpuscular Hemoglobin 30.8 pg (28.0-32.0); Mean Corpuscular Hgb Conc. 33.7 g/dL (32.0-36.0); Mean Corpuscular Volume 91.5 fL (80.0-100.0); Monocytes # (auto) 0.7 10 ^3/uL (0-1.3); Monocytes % (auto) 9.1 % (0.0-12.0); Neutrophils # (auto) 5.2 10 ^3/uL (1.6-8.6); Neutrophils % (auto) 63.5 % (37.0-80.0); Platelet Count (auto) 351 10^3/uL (140-450); Red Blood Cells 3.92 10^6/uL (4.5-5.90); Red Cell Distribution Width 13.7 % (11.8-14.3); White Blood Cell 8.1 10^3/uL (4.4-10.8)
[2024-09-29 03:58] LABS: Anion Gap 9 (5-15); Chloride 101 mmol/L (98-107); Sodium 142 mmol/L (136-145)
[2024-09-29 03:59] LABS: Calcium 10.4 mg/dL (8.7-10.4)
[2024-09-29 04:04] LABS: BUN/Creatinine Ratio 25.9 (10.0-20.0); Blood Urea Nitrogen 15 mg/dL (9-23); Glucose 97 mg/dL (74-106)
[2024-09-29 04:16] LABS: Carbon Dioxide 32 mmol/L (20-31); Potassium 3.3 mmol/L (3.5-5.1)
--- NOTE | 2024-09-29 04:44 | DVH ---
CHEST RADIOGRAPH Indication: pna Technique: Single frontal view of the chest was obtained Comparison: XY CHEST PORTABLE on DOS: 09/28/24 FINDINGS: Lines and Tubes: The endotracheal tube, enteric tube and right PICC are unchanged in position. Lungs: Bibasilar airspace disease similar to prior study. Pleura: Similar bilateral pleural effusions. No pneumothorax. Cardiomediastinal contours: Stable. Bones: No acute osseous abnormality. IMPRESSION: 1. No significant interval change.
[2024-09-29] MEDS ORDERED: METOCLOPRAMIDE 10 mg/10ml ORAL soln GT PRN (07:30)
[2024-09-29] MEDS: POTASSIUM EFFERVESENT TAB 25 MEQ PO ONE (07:58)
[2024-09-29 08:13] LABS: Base Excess 6.2 mmol/L (-2.0-3.0)
[2024-09-29] MEDS: FUROSEMIDE 40 MG/4 ML VIAL IV SCH (09:12)
--- NOTE | 2024-09-29 21:11 | DVHPN2 ---
Progress Note - Dictate Date Seen: Sep 29, 2024 Medical Necessity Reason Pt with a Central, PICC or Fol: Yes The following are medically ne: Teague Catheter Reason for teague catheter: Strict I&O Subjective Patient seen and examined at bedside. Sedated, intubated on mechanical ventilator. Overnight events reviewed. vital signs Vital Sign Date Time Temp Pulse Resp B/P (MAP) Pulse Ox O2 Delivery O2 Flow Rate FiO2 09/29/24 20:22 101/55 09/29/24 20:00 45 09/29/24 20:00 24 91 Mechanical Ventilator+ 09/29/24 20:00 74 09/29/24 18:15 99.1 210.4 Total Intake and Output 09/28/24 09/28/24 09/29/24 14:59 22:59 06:59 Intake Total 485.190 ml 1061.060 ml 1217.560 ml Output Total 1225 ml 1400 ml Balance 485.190 ml -163.940 ml -182.440 ml medications Current Medications Medications Dose Ordered Sig/Felicitas Route Start Time Stop Time Status Last Admin Dose Admin Ondansetron HCl 4 mg Q4HP PRN IV 09/01/24 10:30 Nitroglycerin 0.4 mg Q5MINP PRN SL 09/01/24 10:30 Piperacillin Sod/ Tazobactam Sod 100 ml @ 25 mls/hr Q6HR IV 09/01/24 18:00 UNV Pantoprazole Sodium 40 mg DAILY IV 09/04/24 10:00 09/29/24 09:12 40 MG Budesonide 0.5 mg BID NEB 09/04/24 10:00 09/29/24 06:41 0.5 MG Acetaminophen 650 mg Q6HP PRN PO 09/09/24 10:45 09/27/24 00:29 650 MG Diagnostic Test (Pha) 1 strip Q6HR 09/10/24 12:00 09/29/24 18:05 1 STRIP Dextrose 50 ml UD PRN IV 09/10/24 08:15 Cancel Ipratropium [place] 0.5 mg Q6HR NEB 09/13/24 12:00 09/29/24 18:31 0.5 MG Levalbuterol HCl 1.25 mg Q6HR NEB 09/13/24 12:00 09/29/24 18:31 1.25 MG Lorazepam 0.5 mg Q8HP PRN IV 09/15/24 13:15 09/15/24 20:27 0.5 MG Midazolam HCl 50 ml @ 1 mls/hr Q24H IV 09/16/24 09:00 09/29/24 16:52 11 MLS/HR Fentanyl Citrate 250 ml @ 2.5 mls/hr Q24H IV 09/16/24 09:00 09/29/24 14:44 25 MLS/HR Norepinephrine Bitartrate 32 mg/ Sodium Chloride 250 ml @ 0.938 mls/ hr Q24H IV 09/16/24 17:45 09/16/24 20:19 6.563 MLS/HR Acetylcysteine 100 mg Q6HR NEB 09/17/24 12:00 09/29/24 18:31 100 MG Enteral Nutritional Formula 1,000 ml 50ML/HR GT 09/21/24 08:30 09/22/24 23:22 1,000 ML Sodium Chloride 10 ml QSHIFT@10,22 IV 09/23/24 22:00 09/29/24 09:12 10 ML Lactulose 30 ml BID GT 09/24/24 10:00 09/29/24 09:11 30 ML Propofol 100 ml @ 4.065 mls/ hr Q24H IV 09/26/24 11:45 09/29/24 20:22 12.195 MLS/HR Doxycycline Hyclate 100 ml @ 50 mls/hr Q12HR IV 09/27/24 09:15 09/29/24 09:12 50 MLS/HR Purified Water 100 ml Q6HR GT 09/28/24 12:00 09/29/24 18:08 100 ML Insulin Glargine 12 units DAILY@1000 SC 09/28/24 10:00 Insulin Human Regular Q6HR SC 09/28/24 12:00 Dextrose 50 ml UD PRN IV 09/28/24 09:00 Glycopyrrolate 0.2 mg Q12HP IV 09/28/24 10:00 09/29/24 09:12 0.2 MG Furosemide 40 mg DAILY IV 09/29/24 10:00 09/29/24 09:12 40 MG Metoclopramide HCl 5 mg Q8HP PRN GT 09/29/24 07:30 objective Gen.: Patient lying in bed in medical ICU. Sedated, intubated on mechanical ventilator. Head: Normocephalic, atraumatic. Eyes: PERRLA. Ears: Normal external anatomy. Throat: Endotracheal tube and orogastric tube in place. Neck: Supple, trachea midline. Chest: Transmitted breath sounds bilaterally. Decreased air entry bilaterally. No wheezing. Bibasilar crackles. Cardiovascular: Positive S1, positive S2. Regular rate and rhythm. Abdomen: Positive bowel sounds in all 4 quadrants. Soft, nontender, nondistended. : Teague in place. Normal external genitalia. Rectal: Deferred. Skin: Warm, dry. Intact. Extremities: 2+ radial pulses bilaterally. No lower extremity edema. Neuro: Sedated. laboratory and microbiology Laboratory Tests 09/29/24 03:10 Test 09/29/24 03:10 Range/Units Serum Glucose 97 74-106 mg/dL Assessment/Plan Impression: Acute hypoxic respiratory failure Acute hypercarbic respiratory failure On mechanical ventilator Pleural effusions Atelectasis Morbid obesity with a BMI of 44.8 Pulmonary edema Acute exacerbation of COPD vs Asthma Elevated troponin Events: Remains on vent support On AC mode with RR 24, VT 600, PEEP 6, FIO2 40% Taper FiO2 as tolerated Sedated on Propofol, Versed/Fentanyl Off pressors, hemodynamically stable ABG reviewed, notable for alkalemia Chest x-ray demonstrates stable bilateral pleural effusions and bilateral airspace disease. Devices in place. Continue bronchodilators On nystatin Continue antibiotics Monitor WBC Diurese w/ Lasix as tolerated Monitor renal function Monitor electrolytes. Supplement as necessary. Tube feeds for nutritional support CPAP with PS 16, PEEP of 5 Achieve tidal volume of 550-650 mL. Taper PS tomorrow to 14 cmH2O. Recommend trach + PEG for liberation from vent 09/24/24 - S/p therapeutic bronchoscopy with clearing of secretions/mucous plugging from L1-L3 and R1-R3 and R6-R10. 09/18/24 - S/p therapeutic bronchoscopy w/ RLL BAL. Mucous plugging cleared from L1-L3 and L6-L10 and R1-R3 and R6-R10 See separate procedure note for details 09/16/24 - S/p bronchoscopy w/ bronchoalveolar lavage, removed copious mucous plugs from RUL/RLL + FROYLAN. See separate procedure note for details. Labs and imaging reviewed. Rest of plan as noted below. Plan: s/p re-intubation, on mechanical ventilator On AC mode with RR 24, VT 600, PEEP 6, FIO2 40% Taper FiO2 as tolerated Sedated for vent synchrony Bronchodilators Steroids - completed Pressors if necessary for hemodynamic support. Titrate to keep MAP above 65 mmHg/SBP above 90 mmHg. F/u Echo to evaluate LVEF, RVSP and r/o valvular dysfunction. Cardiology recommendations appreciated Antibiotics F/u cultures. Maintain euvolemia Monitor renal function due to Acute kidney injury. Monitor electrolytes. Supplement as necessary. Nutritional support. Accu-Cheks, ISS. Morbid obesity, complicates all care. Diet and lifestyle modifications for weight reduction recommended. GI/DVT prophylaxis. Condition: Critical Prognosis: Poor given multiple comorbidities. Rest of plan per hospitalist and other consultants. A total of 35 minutes of critical care time was spent reviewing the patient record, examining the patient, making a diagnostic and therapeutic plan, discussing this plan with the medical personnel, following up on diagnostic studies and following the patient for clinical stability excluding any and all procedures. At least 50% of this time was spent in direct, [id number] contact. Thank you ANAHI Montoya for allowing me to participate in this patient's care. Further recommendations will depend on patient's clinical course. Please do not hesitate to contact me if you have any questions or concerns. This medical document was created using an electronic medical record system with [employer] dictation system. Although this document has been carefully reviewed, there may still be some phonetic and typographical errors. These areas are purely typographical due to imperfections of the software programs, and do not reflect any compromise in the patient's medical care. Dietary Evaluation Review Recommendations by RD: Increase Calorie Intake Comments: 1. Increase TF as tolerated to goal rate to 50 mL/hr.Goal rate will provide ~ 87 daily estimated energy needs and ~60% daily estimated protein needs. 2. Advance to CCHO 60g diet pending C PROGRAMMER approval when medically feasible. 3. Continue to monitor patient's weight and labs. Expected Outcomes/Goals: 1. labs to improve 2. diet to advance 3. continue plan of care 4. f/u in 2-3 days Plan discussed with: Other (FERNANDO Stevens) Critical Care Time(min): 35 LIZ GUDINO MD Sep 29, 2024 21:10
[2024-09-30] VITALS (107 sets, daily range): BP systolic 86–119; BP diastolic 44–82; PULSE 70–97; RESP 11–24; TEMP 98.6–99.7; O2SAT 85–99
[2024-09-30 03:43] LABS: Basophils # (auto) 0 10 ^3/uL (0-0.2); Basophils % (auto) 0.5 % (0.0-2.0); Eosinophils # (auto) 0.2 10 ^3/uL (0-0.8); Eosinophils % (auto) 2.1 % (0.0-7.0); Hematocrit 35.3 % (41.0-53.0); Hemoglobin 11.7 g/dL (13.5-17.5); Lymphocytes % (auto) 23.2 % (10.0-50.0); Mean Corpuscular Hemoglobin 30.7 pg (28.0-32.0); Mean Corpuscular Hgb Conc. 33.1 g/dL (32.0-36.0); Mean Corpuscular Volume 92.8 fL (80.0-100.0); Monocytes # (auto) 0.8 10 ^3/uL (0-1.3); Monocytes % (auto) 9.6 % (0.0-12.0); Neutrophils # (auto) 5.7 10 ^3/uL (1.6-8.6); Neutrophils % (auto) 64.6 % (37.0-80.0); Platelet Count (auto) 277 10^3/uL (140-450); Red Blood Cells 3.81 10^6/uL (4.5-5.90); Red Cell Distribution Width 13.9 % (11.8-14.3); White Blood Cell 8.8 10^3/uL (4.4-10.8)
[2024-09-30 03:59] LABS: Anion Gap 8 (5-15); Carbon Dioxide 27 mmol/L (20-31); Chloride 103 mmol/L (98-107); Sodium 138 mmol/L (136-145)
[2024-09-30 04:00] LABS: Calcium 10.1 mg/dL (8.7-10.4)
[2024-09-30 04:05] LABS: BUN/Creatinine Ratio 21.1 (10.0-20.0); Blood Urea Nitrogen 12 mg/dL (9-23); Glucose 99 mg/dL (74-106)
[2024-09-30 04:07] LABS: Potassium 3.3 mmol/L (3.5-5.1)
--- NOTE | 2024-09-30 05:26 | DVH ---
CHEST RADIOGRAPH Indication: pna Technique: Single frontal view of the chest was obtained Comparison: XY CHEST PORTABLE on DOS: 09/29/24 FINDINGS: Lines and Tubes: The endotracheal tube terminates 6.4 cm above the alf. The right PICC terminates in the superior vena cava. Lungs: Bilateral opacities are similar to the prior study. Pleura: Bilateral pleural effusions. No pneumothorax. Cardiomediastinal contours: Unremarkable Bones: No acute osseous abnormality. IMPRESSION: 1. Stable position of the support lines and tubes. 2. No significant change in bilateral opacities and pleural effusions.
--- NOTE | 2024-09-30 08:23 | DVHPN2 ---
Subjective Intubated and chemically sedated. Reviewed: Care Plan, H&P, Labs, Medications, Previous Orders, Radiology, Other (Consultants) Changes from previous H/P or p: No Changes General: Per HPI Objective Vitals Vital Signs Date Time Temp Pulse Resp B/P (MAP) Pulse Ox O2 Delivery O2 Flow Rate FiO2 09/30/24 07:58 82 24 104/46 (65) 94 45 09/30/24 07:30 99.0 210.2 09/30/24 06:00 Mechanical Ventilator+ Intake/Output Intake and Output 09/30/24 06:59 Intake Total 2352.3 ml Output Total 2175 ml Balance 177.3 ml Intake Oral 395 ml IV Total 1368.3 ml Tube Feeding 589 ml Output Urine Total 2175 ml General Appearance: moderate distress, Other (intubated and sedated ) HEENT: Atraumatic, Other (Pinpoint pupils) Lungs: Clear to auscultation, Other (On the vent) Cardiovascular: Regular rate, Normal S1, Normal S2 Abdomen: Normal bowel sounds, Soft Musculoskeletal: Weak motor strength RUE, Weak motor strength LUE, Weak motor strength RLE, Weak motor strength LLE Extremities: Other (1+ bilateral lower extremities edema) Skin: Dry, Intact Psych/Mental Status: Other (intubated and sedated ) Medications Current Medications Medications Dose Ordered Sig/Felicitas Route Start Time Stop Time Status Last Admin Dose Admin Ondansetron HCl 4 mg Q4HP PRN IV 09/01/24 10:30 Nitroglycerin 0.4 mg Q5MINP PRN SL 09/01/24 10:30 Piperacillin Sod/ Tazobactam Sod 100 ml @ 25 mls/hr Q6HR IV 09/01/24 18:00 UNV Pantoprazole Sodium 40 mg DAILY IV 09/04/24 10:00 09/29/24 09:12 40 MG Budesonide 0.5 mg BID NEB 09/04/24 10:00 09/30/24 00:01 0.5 MG Acetaminophen 650 mg Q6HP PRN PO 09/09/24 10:45 09/27/24 00:29 650 MG Diagnostic Test (Pha) 1 strip Q6HR 09/10/24 12:00 09/30/24 05:53 1 STRIP Dextrose 50 ml UD PRN IV 09/10/24 08:15 Cancel Ipratropium [place] 0.5 mg Q6HR NEB 09/13/24 12:00 09/30/24 06:19 0.5 MG Levalbuterol HCl 1.25 mg Q6HR NEB 09/13/24 12:00 09/30/24 06:20 1.25 MG Lorazepam 0.5 mg Q8HP PRN IV 09/15/24 13:15 09/15/24 20:27 0.5 MG Midazolam HCl 50 ml @ 1 mls/hr Q24H IV 09/16/24 09:00 09/30/24 06:22 11 MLS/HR Fentanyl Citrate 250 ml @ 2.5 mls/hr Q24H IV 09/16/24 09:00 09/30/24 07:50 27.5 MLS/HR Norepinephrine Bitartrate 32 mg/ Sodium Chloride 250 ml @ 0.938 mls/ hr Q24H IV 09/16/24 17:45 09/16/24 20:19 6.563 MLS/HR Acetylcysteine 100 mg Q6HR NEB 09/17/24 12:00 09/30/24 06:19 100 MG Enteral Nutritional Formula 1,000 ml 50ML/HR GT 09/21/24 08:30 09/22/24 23:22 1,000 ML Sodium Chloride 10 ml QSHIFT@10,22 IV 09/23/24 22:00 09/29/24 22:03 10 ML Lactulose 30 ml BID GT 09/24/24 10:00 09/29/24 22:03 30 ML Propofol 100 ml @ 4.065 mls/ hr Q24H IV 09/26/24 11:45 09/30/24 05:02 12.195 MLS/HR Doxycycline Hyclate 100 ml @ 50 mls/hr Q12HR IV 09/27/24 09:15 09/29/24 22:03 50 MLS/HR Purified Water 100 ml Q6HR GT 09/28/24 12:00 09/30/24 00:12 100 ML Insulin Glargine 12 units DAILY@1000 SC 09/28/24 10:00 Insulin Human Regular Q6HR SC 09/28/24 12:00 Dextrose 50 ml UD PRN IV 09/28/24 09:00 Glycopyrrolate 0.2 mg Q12HP IV 09/28/24 10:00 09/29/24 22:03 0.2 MG Furosemide 40 mg DAILY IV 09/29/24 10:00 09/29/24 09:12 40 MG Metoclopramide HCl 5 mg Q8HP PRN GT 09/29/24 07:30 Laboratory Results Laboratory Tests 09/30/24 03:05 Chemistry Test 09/30/24 03:05 Calcium Level 10.1 mg/dL (8.7-10.4) Blood Gas Results Test 09/30/24 07:18 Arterial Blood pH 7.496 (7.350-7.450) FiO2 % 45.0 Microbiology Microbiology Date/Time Source Procedure Growth Status 09/27/24 08:20 Sputum Gram Stain - Final Resulted 09/27/24 08:20 Sputum Respiratory Culture - Preliminary Resulted 09/26/24 15:13 Urine - [place] Urine Culture - Final Complete 09/26/24 13:06 Blood Blood Culture - Preliminary NO GROWTH AFTER 72 HOURS OF INCUBATION. Resulted 09/16/24 15:13 Other Endotracheal Wash Gram Stain - Final Complete 09/16/24 15:13 Respiratory Culture - Final Methicillin Resistant S.aureus Complete Labs and/or images reviewed: Labs reviewed by me, Image(s) reviewed by me Assessment/Plan Assessment/Plan Impression: -acute hypoxic and hypercarbic respiratory failure with failure of noninvasive positive pressure ventilation -community-acquired pneumonia, MRSA -morbid obesity -nicotine dependence -sepsis -history of schizophrenia -NSTEMI type 2 Plan: Events: FIO2 40%, Peep will decrease to 6. Family still not agreeing with Tracheostomy. -Surgical consult -continue tube feeding, -Continue Bowel Regimen -continue regular insulin sliding scale, Lantus 12 units daily -pulmonology consultation: Recommendations reviewed -Cantibiotic therapy to meropenem, Diflucan, vancomycin -Solu-Medrol to 40 mg daily -De-escalate abx -continue DVT prophylaxis -PUD prophylaxis -continue bronchodilators, Pulmicort, Mucomyst -repeat labs, chest x-ray, ABG in a.m. -goals care include tracheostomy with PEG tube placement. Critical care time spent with patient discussing and formulating plan of care: 40 minutes. This does not include time spent performing procedures. This medical document was created using an electronic medical record system with [employer] system. Although this document has been carefully reviewed, there may still be some phonetic and typographical errors. These areas are purely typographical due to imperfections of the software programs, and do not reflect any compromise in the patient's medical care. Plan discussed with: Patient, Other (RN) My Orders Orders - ZUHAIR GUILLORY NP Procedure Category Date Status Time Chest Percussion Tx RT 09/29/24 Logged Initi 13:35 Date of Service: Sep 29, 2024 Billing Provider: ZUHAIR GUILLORY NP Common Visit Codes: [id number] CARE 30-74 MIN ZUHAIR GUILLORY NP Sep 30, 2024 08:23
--- NOTE | 2024-09-30 09:35 | DVHPN2 ---
Subjective Intubated and chemically sedated. Reviewed: Care Plan, H&P, Labs, Medications, Previous Orders, Radiology, Other (Consultants) Changes from previous H/P or p: No Changes General: Per HPI Objective Vitals Vital Signs Date Time Temp Pulse Resp B/P (MAP) Pulse Ox O2 Delivery O2 Flow Rate FiO2 09/30/24 07:58 82 24 104/46 (65) 94 45 09/30/24 07:30 99.0 210.2 09/30/24 06:00 Mechanical Ventilator+ Intake/Output Intake and Output 09/30/24 07:00 Intake Total 2305.1 ml Output Total 2175 ml Balance 130.1 ml Intake Oral 395 ml IV Total 1321.1 ml Tube Feeding 589 ml Output Urine Total 2175 ml General Appearance: moderate distress, Other (intubated and sedated ) HEENT: Atraumatic, Other (Pinpoint pupils) Lungs: Clear to auscultation, Other (On the vent) Cardiovascular: Regular rate, Normal S1, Normal S2 Abdomen: Normal bowel sounds, Soft Musculoskeletal: Weak motor strength RUE, Weak motor strength LUE, Weak motor strength RLE, Weak motor strength LLE Extremities: Other (1+ bilateral lower extremities edema) Skin: Dry, Intact Psych/Mental Status: Other (intubated and sedated ) Medications Current Medications Medications Dose Ordered Sig/Felicitas Route Start Time Stop Time Status Last Admin Dose Admin Ondansetron HCl 4 mg Q4HP PRN IV 09/01/24 10:30 Nitroglycerin 0.4 mg Q5MINP PRN SL 09/01/24 10:30 Piperacillin Sod/ Tazobactam Sod 100 ml @ 25 mls/hr Q6HR IV 09/01/24 18:00 UNV Pantoprazole Sodium 40 mg DAILY IV 09/04/24 10:00 09/29/24 09:12 40 MG Budesonide 0.5 mg BID NEB 09/04/24 10:00 09/30/24 00:01 0.5 MG Acetaminophen 650 mg Q6HP PRN PO 09/09/24 10:45 09/27/24 00:29 650 MG Diagnostic Test (Pha) 1 strip Q6HR 09/10/24 12:00 09/30/24 05:53 1 STRIP Dextrose 50 ml UD PRN IV 09/10/24 08:15 Cancel Ipratropium [place] 0.5 mg Q6HR NEB 09/13/24 12:00 09/30/24 06:19 0.5 MG Levalbuterol HCl 1.25 mg Q6HR NEB 09/13/24 12:00 09/30/24 06:20 1.25 MG Lorazepam 0.5 mg Q8HP PRN IV 09/15/24 13:15 09/15/24 20:27 0.5 MG Midazolam HCl 50 ml @ 1 mls/hr Q24H IV 09/16/24 09:00 09/30/24 06:22 11 MLS/HR Fentanyl Citrate 250 ml @ 2.5 mls/hr Q24H IV 09/16/24 09:00 09/30/24 07:50 27.5 MLS/HR Norepinephrine Bitartrate 32 mg/ Sodium Chloride 250 ml @ 0.938 mls/ hr Q24H IV 09/16/24 17:45 09/16/24 20:19 6.563 MLS/HR Acetylcysteine 100 mg Q6HR NEB 09/17/24 12:00 09/30/24 06:19 100 MG Enteral Nutritional Formula 1,000 ml 50ML/HR GT 09/21/24 08:30 09/22/24 23:22 1,000 ML Sodium Chloride 10 ml QSHIFT@10,22 IV 09/23/24 22:00 09/29/24 22:03 10 ML Lactulose 30 ml BID GT 09/24/24 10:00 09/29/24 22:03 30 ML Propofol 100 ml @ 4.065 mls/ hr Q24H IV 09/26/24 11:45 09/30/24 05:02 12.195 MLS/HR Doxycycline Hyclate 100 ml @ 50 mls/hr Q12HR IV 09/27/24 09:15 09/29/24 22:03 50 MLS/HR Purified Water 100 ml Q6HR GT 09/28/24 12:00 09/30/24 00:12 100 ML Insulin Glargine 12 units DAILY@1000 SC 09/28/24 10:00 Insulin Human Regular Q6HR SC 09/28/24 12:00 Dextrose 50 ml UD PRN IV 09/28/24 09:00 Glycopyrrolate 0.2 mg Q12HP IV 09/28/24 10:00 09/29/24 22:03 0.2 MG Furosemide 40 mg DAILY IV 09/29/24 10:00 09/29/24 09:12 40 MG Metoclopramide HCl 5 mg Q8HP PRN GT 09/29/24 07:30 Laboratory Results Laboratory Tests 09/30/24 03:05 Chemistry Test 09/30/24 03:05 Calcium Level 10.1 mg/dL (8.7-10.4) Blood Gas Results Test 09/30/24 07:18 Arterial Blood pH 7.496 (7.350-7.450) FiO2 % 45.0 Microbiology Microbiology Date/Time Source Procedure Growth Status 09/27/24 08:20 Sputum Gram Stain - Final Resulted 09/27/24 08:20 Sputum Respiratory Culture - Preliminary Resulted 09/26/24 15:13 Urine - [place] Urine Culture - Final Complete 09/26/24 13:06 Blood Blood Culture - Preliminary NO GROWTH AFTER 72 HOURS OF INCUBATION. Resulted 09/16/24 15:13 Other Endotracheal Wash Gram Stain - Final Complete 09/16/24 15:13 Respiratory Culture - Final Methicillin Resistant S.aureus Complete Labs and/or images reviewed: Labs reviewed by me, Image(s) reviewed by me Assessment/Plan Assessment/Plan Impression: -acute hypoxic and hypercarbic respiratory failure with failure of noninvasive positive pressure ventilation -community-acquired pneumonia, MRSA -morbid obesity -nicotine dependence -sepsis -history of schizophrenia -NSTEMI type 2 Plan: Events: FIO2 40%, Peep will decrease to 6. Discussed case with pulmonology. At this time we will move forward with transferring to LTACH -Surgical consult -continue tube feeding, -Continue Bowel Regimen -continue regular insulin sliding scale, Lantus 12 units daily -pulmonology consultation: Recommendations reviewed -Cantibiotic therapy to meropenem, Diflucan, vancomycin -Solu-Medrol to 40 mg daily -De-escalate abx -continue DVT prophylaxis -PUD prophylaxis -continue bronchodilators, Pulmicort, Mucomyst -repeat labs, chest x-ray, ABG in a.m. -goals care include tracheostomy with PEG tube placement. Critical care time spent with patient discussing and formulating plan of care: 40 minutes. This does not include time spent performing procedures. This medical document was created using an electronic medical record system with Dragon computerized dictation system. Although this document has been carefully reviewed, there may still be some phonetic and typographical errors. These areas are purely typographical due to imperfections of the software programs, and do not reflect any compromise in the patient's medical care. Plan discussed with: Patient, Other (RN) My Orders Orders - ZUHAIR GUILLORY NP Procedure Category Date Status Time Chest Percussion Tx RT 09/29/24 Logged Initi 13:35 * Assistant Tennis [employer] CONS 09/30/24 Transmitted Consult Date of Service: Sep 30, 2024 Billing Provider: ZUHAIR GUILLORY NP Common Visit Codes: [id number] CARE 30-74 MIN ZUHAIR GUILLORY NP Sep 30, 2024 09:35
[2024-09-30] MEDS: POTASSIUM EFFERVESENT TAB 25 MEQ PO ONE (09:41)
--- NOTE | 2024-09-30 20:26 | DVHPN2 ---
Progress Note - Dictate Date Seen: Sep 30, 2024 Medical Necessity Reason Pt with a Central, PICC or Fol: Yes The following are medically ne: Teague Catheter Reason for teague catheter: Strict I&O Subjective Patient seen and examined at bedside. Sedated, intubated on mechanical ventilator. Overnight events reviewed. vital signs Vital Sign Date Time Temp Pulse Resp B/P (MAP) Pulse Ox O2 Delivery O2 Flow Rate FiO2 09/30/24 19:56 78 24 102/55 (71) 92 50 09/30/24 19:15 99.5 211.1 09/30/24 18:00 Mechanical Ventilator+ Total Intake and Output 09/29/24 09/29/24 09/30/24 14:59 22:59 06:59 Intake Total 484.6 ml 1073.6 ml 794.1 ml Output Total 1300 ml 875 ml Balance 484.6 ml -226.4 ml -80.9 ml medications Current Medications Medications Dose Ordered Sig/Felicitas Route Start Time Stop Time Status Last Admin Dose Admin Ondansetron HCl 4 mg Q4HP PRN IV 09/01/24 10:30 Nitroglycerin 0.4 mg Q5MINP PRN SL 09/01/24 10:30 Piperacillin Sod/ Tazobactam Sod 100 ml @ 25 mls/hr Q6HR IV 09/01/24 18:00 UNV Pantoprazole Sodium 40 mg DAILY IV 09/04/24 10:00 09/30/24 09:41 40 MG Budesonide 0.5 mg BID NEB 09/04/24 10:00 09/30/24 10:23 0.5 MG Acetaminophen 650 mg Q6HP PRN PO 09/09/24 10:45 09/27/24 00:29 650 MG Diagnostic Test (Pha) 1 strip Q6HR 09/10/24 12:00 09/30/24 17:58 1 STRIP Dextrose 50 ml UD PRN IV 09/10/24 08:15 Cancel Ipratropium [place] 0.5 mg Q6HR NEB 09/13/24 12:00 09/30/24 18:20 0.5 MG Levalbuterol HCl 1.25 mg Q6HR NEB 09/13/24 12:00 09/30/24 18:20 1.25 MG Lorazepam 0.5 mg Q8HP PRN IV 09/15/24 13:15 09/15/24 20:27 0.5 MG Midazolam HCl 50 ml @ 1 mls/hr Q24H IV 09/16/24 09:00 09/30/24 16:07 11 MLS/HR Fentanyl Citrate 250 ml @ 2.5 mls/hr Q24H IV 09/16/24 09:00 09/30/24 16:12 27.5 MLS/HR Norepinephrine Bitartrate 32 mg/ Sodium Chloride 250 ml @ 0.938 mls/ hr Q24H IV 09/16/24 17:45 09/16/24 20:19 6.563 MLS/HR Acetylcysteine 100 mg Q6HR NEB 09/17/24 12:00 09/30/24 18:20 100 MG Enteral Nutritional Formula 1,000 ml 50ML/HR GT 09/21/24 08:30 09/22/24 23:22 1,000 ML Sodium Chloride 10 ml QSHIFT@10,22 IV 09/23/24 22:00 09/30/24 09:42 10 ML Lactulose 30 ml BID GT 09/24/24 10:00 09/30/24 09:41 30 ML Propofol 100 ml @ 4.065 mls/ hr Q24H IV 09/26/24 11:45 09/30/24 14:00 12.195 MLS/HR Doxycycline Hyclate 100 ml @ 50 mls/hr Q12HR IV 09/27/24 09:15 09/30/24 09:41 50 MLS/HR Purified Water 100 ml Q6HR GT 09/28/24 12:00 09/30/24 17:59 100 ML Insulin Glargine 12 units DAILY@1000 SC 09/28/24 10:00 09/30/24 09:52 12 UNITS Insulin Human Regular Q6HR SC 09/28/24 12:00 Dextrose 50 ml UD PRN IV 09/28/24 09:00 Glycopyrrolate 0.2 mg Q12HP IV 09/28/24 10:00 09/30/24 09:41 0.2 MG Furosemide 40 mg DAILY IV 09/29/24 10:00 09/30/24 09:41 40 MG Metoclopramide HCl 5 mg Q8HP PRN GT 09/29/24 07:30 objective Gen.: Patient lying in bed in medical ICU. Sedated, intubated on mechanical ventilator. Head: Normocephalic, atraumatic. Eyes: PERRLA. Ears: Normal external anatomy. Throat: Endotracheal tube and orogastric tube in place. Neck: Supple, trachea midline. Chest: Transmitted breath sounds bilaterally. Decreased air entry bilaterally. No wheezing. Bibasilar crackles. Cardiovascular: Positive S1, positive S2. Regular rate and rhythm. Abdomen: Positive bowel sounds in all 4 quadrants. Soft, nontender, nondistended. : Teague in place. Normal external genitalia. Rectal: Deferred. Skin: Warm, dry. Intact. Extremities: 2+ radial pulses bilaterally. No lower extremity edema. Neuro: Sedated. laboratory and microbiology Laboratory Tests 09/30/24 03:05 Test 09/30/24 03:05 Range/Units Serum Glucose 99 74-106 mg/dL Assessment/Plan Impression: Acute hypoxic respiratory failure Acute hypercarbic respiratory failure On mechanical ventilator Pleural effusions Atelectasis Morbid obesity with a BMI of 44.8 Pulmonary edema Acute exacerbation of COPD vs Asthma Elevated troponin Events: Remains on vent support On AC mode with RR 24, VT 600, PEEP 6 -->5, FIO2 40 -->45% Taper FiO2 as tolerated Sedated on Propofol, Versed/Fentanyl Off pressors, hemodynamically stable ABG reviewed, notable for alkalemia Chest x-ray demonstrates stable bilateral pleural effusions and bilateral airspace disease. Devices in place. Continue bronchodilators Continue antibiotics Monitor WBC Diurese w/ Lasix as tolerated Monitor renal function Monitor electrolytes. Supplement as necessary. Tube feeds for nutritional support Recommend transfer to LTAC for ongoing liberation from mechanical ventilator. 09/24/24 - S/p therapeutic bronchoscopy with clearing of secretions/mucous plugging from L1-L3 and R1-R3 and R6-R10. 09/18/24 - S/p therapeutic bronchoscopy w/ RLL BAL. Mucous plugging cleared from L1-L3 and L6-L10 and R1-R3 and R6-R10 See separate procedure note for details 09/16/24 - S/p bronchoscopy w/ bronchoalveolar lavage, removed copious mucous plugs from RUL/RLL + FROYLAN. See separate procedure note for details. Labs and imaging reviewed. Rest of plan as noted below. Plan: s/p re-intubation, on mechanical ventilator On AC mode with RR 24, VT 600, PEEP 5, FIO2 45% Taper FiO2 as tolerated Sedated for vent synchrony Bronchodilators Steroids - completed Pressors if necessary for hemodynamic support. Titrate to keep MAP above 65 mmHg/SBP above 90 mmHg. F/u Echo to evaluate LVEF, RVSP and r/o valvular dysfunction. Cardiology recommendations appreciated Antibiotics F/u cultures. Maintain euvolemia Monitor renal function due to Acute kidney injury. Monitor electrolytes. Supplement as necessary. Nutritional support. Accu-Cheks, ISS. Morbid obesity, complicates all care. Diet and lifestyle modifications for weight reduction recommended. GI/DVT prophylaxis. Condition: Critical Prognosis: Poor given multiple comorbidities. Rest of plan per hospitalist and other consultants. A total of 35 minutes of critical care time was spent reviewing the patient record, examining the patient, making a diagnostic and therapeutic plan, discussing this plan with the medical personnel, following up on diagnostic studies and following the patient for clinical stability excluding any and all procedures. At least 50% of this time was spent in direct, [id number] contact. Thank you ANAHI Montoya for allowing me to participate in this patient's care. Further recommendations will depend on patient's clinical course. Please do not hesitate to contact me if you have any questions or concerns. This medical document was created using an electronic medical record system with [employer] dictation system. Although this document has been carefully reviewed, there may still be some phonetic and typographical errors. These areas are purely typographical due to imperfections of the software programs, and do not reflect any compromise in the patient's medical care. Dietary Evaluation Review Recommendations by RD: Increase Calorie Intake Comments: 1. Increase TF as tolerated to goal rate to 50 mL/hr.Goal rate will provide ~ 87 daily estimated energy needs and ~60% daily estimated protein needs. 2. [facility] pending [employer] approval when medically feasible. 3. Continue to monitor patient's weight and labs. Expected Outcomes/Goals: 1. labs to improve 2. diet to advance 3. continue plan of care 4. f/u in 2-3 days Plan discussed with: Other (FERNANDO Fatima/Missy) Critical Care Time(min): 35 LIZ GUDINO MD Sep 30, 2024 20:26
[2024-10-01] VITALS (110 sets, daily range): BP systolic 85–131; BP diastolic 43–81; PULSE 72–108; RESP 10–25; TEMP 98.8–100; O2SAT 89–97
[2024-10-01 04:00] LABS: Basophils # (auto) 0.1 10 ^3/uL (0-0.2); Basophils % (auto) 0.7 % (0.0-2.0); Eosinophils # (auto) 0.2 10 ^3/uL (0-0.8); Eosinophils % (auto) 1.6 % (0.0-7.0); Hematocrit 36.6 % (41.0-53.0); Hemoglobin 11.9 g/dL (13.5-17.5); Lymphocytes # (auto) 1.7 10 ^3/uL (0.4-5.4); Lymphocytes % (auto) 17.5 % (10.0-50.0); Mean Corpuscular Hemoglobin 30.2 pg (28.0-32.0); Mean Corpuscular Hgb Conc. 32.6 g/dL (32.0-36.0); Mean Corpuscular Volume 92.6 fL (80.0-100.0); Monocytes # (auto) 0.9 10 ^3/uL (0-1.3); Monocytes % (auto) 8.8 % (0.0-12.0); Neutrophils # (auto) 6.9 10 ^3/uL (1.6-8.6); Neutrophils % (auto) 71.4 % (37.0-80.0); Nucleated Red Blood Cells % 0.1 %; Platelet Count (auto) 312 10^3/uL (140-450); Red Blood Cells 3.96 10^6/uL (4.5-5.90); Red Cell Distribution Width 13.6 % (11.8-14.3); White Blood Cell 9.7 10^3/uL (4.4-10.8)
[2024-10-01 04:35] LABS: Anion Gap 9 (5-15); Carbon Dioxide 28 mmol/L (20-31); Chloride 102 mmol/L (98-107); Potassium 3.6 mmol/L (3.5-5.1); Sodium 139 mmol/L (136-145)
[2024-10-01 04:36] LABS: Calcium 10.1 mg/dL (8.7-10.4)
[2024-10-01 04:41] LABS: Blood Urea Nitrogen 13 mg/dL (9-23); Glucose 100 mg/dL (74-106)
[2024-10-01 10:49] LABS: INR 1.22 (0.9-1.15); Partial Thromboplastin Time 26.9 SEC (24.5-34.5); Prothrombin Time 12.7 sec (9.3-11.8)
[2024-10-01 10:53] LABS: Base Excess 5.2 mmol/L (-2.0-3.0)
--- NOTE | 2024-10-01 23:34 | DVHPN2 ---
Progress Note - Dictate Date Seen: Oct 01, 2024 Medical Necessity Reason Pt with a Central, PICC or Fol: Yes The following are medically ne: Teague Catheter Reason for teague catheter: Strict I&O Subjective Patient seen and examined at bedside. Sedated, intubated on mechanical ventilator. Overnight events reviewed. vital signs Vital Sign Date Time Temp Pulse Resp B/P (MAP) Pulse Ox O2 Delivery O2 Flow Rate FiO2 10/01/24 22:39 100/48 10/01/24 22:01 76 24 93 55 10/01/24 22:00 Mechanical Ventilator+ 10/01/24 20:30 99.5 211.1 Total Intake and Output 09/30/24 09/30/24 10/01/24 15:00 23:00 07:00 Intake Total 505.565 ml 845.560 ml 811.365 ml Output Total 1600 ml 475 ml Balance 505.565 ml -754.440 ml 336.365 ml medications Current Medications Medications Dose Ordered Sig/Felicitas Route Start Time Stop Time Status Last Admin Dose Admin Ondansetron HCl 4 mg Q4HP PRN IV 09/01/24 10:30 Nitroglycerin 0.4 mg Q5MINP PRN SL 09/01/24 10:30 Piperacillin Sod/ Tazobactam Sod 100 ml @ 25 mls/hr Q6HR IV 09/01/24 18:00 UNV Pantoprazole Sodium 40 mg DAILY IV 09/04/24 10:00 10/01/24 10:59 40 MG Budesonide 0.5 mg BID NEB 09/04/24 10:00 10/01/24 17:56 0.5 MG Acetaminophen 650 mg Q6HP PRN PO 09/09/24 10:45 09/27/24 00:29 650 MG Diagnostic Test (Pha) 1 strip Q6HR 09/10/24 12:00 10/01/24 18:00 1 STRIP Dextrose 50 ml UD PRN IV 09/10/24 08:15 Cancel Ipratropium [place] 0.5 mg Q6HR NEB 09/13/24 12:00 10/01/24 17:55 0.5 MG Levalbuterol HCl 1.25 mg Q6HR NEB 09/13/24 12:00 10/01/24 17:55 1.25 MG Lorazepam 0.5 mg Q8HP PRN IV 09/15/24 13:15 09/15/24 20:27 0.5 MG Midazolam HCl 50 ml @ 1 mls/hr Q24H IV 09/16/24 09:00 10/01/24 12:31 9 MLS/HR Fentanyl Citrate 250 ml @ 2.5 mls/hr Q24H IV 09/16/24 09:00 10/01/24 19:11 25 MLS/HR Norepinephrine Bitartrate 32 mg/ Sodium Chloride 250 ml @ 0.938 mls/ hr Q24H IV 09/16/24 17:45 09/16/24 20:19 6.563 MLS/HR Acetylcysteine 100 mg Q6HR NEB 09/17/24 12:00 10/01/24 17:55 100 MG Enteral Nutritional Formula 1,000 ml 50ML/HR GT 09/21/24 08:30 10/01/24 12:32 1,000 ML Sodium Chloride 10 ml QSHIFT@10,22 IV 09/23/24 22:00 10/01/24 22:34 10 ML Lactulose 30 ml BID GT 09/24/24 10:00 10/01/24 22:33 30 ML Propofol 100 ml @ 4.065 mls/ hr Q24H IV 09/26/24 11:45 10/01/24 22:39 20.325 MLS/HR Doxycycline Hyclate 100 ml @ 50 mls/hr Q12HR IV 09/27/24 09:15 10/01/24 22:33 50 MLS/HR Purified Water 100 ml Q6HR GT 09/28/24 12:00 10/01/24 18:00 100 ML Insulin Glargine 12 units DAILY@1000 SC 09/28/24 10:00 10/01/24 11:09 12 UNITS Insulin Human Regular Q6HR SC 09/28/24 12:00 Dextrose 50 ml UD PRN IV 09/28/24 09:00 Glycopyrrolate 0.2 mg Q12HP IV 09/28/24 10:00 10/01/24 22:33 0.2 MG Furosemide 40 mg DAILY IV 09/29/24 10:00 10/01/24 11:01 40 MG Metoclopramide HCl 5 mg Q8HP PRN GT 09/29/24 07:30 objective Gen.: Patient lying in bed in medical ICU. Sedated, intubated on mechanical ventilator. Head: Normocephalic, atraumatic. Eyes: PERRLA. Ears: Normal external anatomy. Throat: Endotracheal tube and orogastric tube in place. Neck: Supple, trachea midline. Chest: Transmitted breath sounds bilaterally. Decreased air entry bilaterally. No wheezing. Bibasilar crackles. Cardiovascular: Positive S1, positive S2. Regular rate and rhythm. Abdomen: Positive bowel sounds in all 4 quadrants. Soft, nontender, nondistended. : Teague in place. Normal external genitalia. Rectal: Deferred. Skin: Warm, dry. Intact. Extremities: 2+ radial pulses bilaterally. No lower extremity edema. Neuro: Sedated. laboratory and microbiology Laboratory Tests 10/01/24 03:12 Test 10/01/24 03:12 Range/Units Serum Glucose 100 74-106 mg/dL Assessment/Plan Impression: Acute hypoxic respiratory failure Acute hypercarbic respiratory failure On mechanical ventilator Pleural effusions Atelectasis Morbid obesity with a BMI of 44.8 Pulmonary edema Acute exacerbation of COPD vs Asthma Elevated troponin Events: Remains on vent support On AC mode with RR 24, VT 600, PEEP 5 -->8, FIO2 45 -->55% Taper FiO2 as tolerated Sedated on Propofol, Versed/Fentanyl Off pressors, hemodynamically stable ABG reviewed, notable for alkalemia Chest x-ray demonstrates stable bilateral pleural effusions and bilateral airspace disease. Devices in place. Continue bronchodilators Continue antibiotics Monitor WBC Diurese w/ Lasix as tolerated Monitor renal function Monitor electrolytes. Supplement as necessary. Tube feeds for nutritional support Recommend trach/PEG - transfer to LTAC for ongoing liberation from mechanical ventilator. 09/24/24 - S/p therapeutic bronchoscopy with clearing of secretions/mucous plugging from L1-L3 and R1-R3 and R6-R10. 09/18/24 - S/p therapeutic bronchoscopy w/ RLL BAL. Mucous plugging cleared from L1-L3 and L6-L10 and R1-R3 and R6-R10 See separate procedure note for details 09/16/24 - S/p bronchoscopy w/ bronchoalveolar lavage, removed copious mucous plugs from RUL/RLL + FROYLAN. See separate procedure note for details. Labs and imaging reviewed. Rest of plan as noted below. Plan: s/p re-intubation, on mechanical ventilator On AC mode with RR 24, VT 600, PEEP 8, FIO2 55% Taper FiO2 as tolerated Sedated for vent synchrony Bronchodilators Steroids - completed Pressors if necessary for hemodynamic support. Titrate to keep MAP above 65 mmHg/SBP above 90 mmHg. F/u Echo to evaluate LVEF, RVSP and r/o valvular dysfunction. Cardiology recommendations appreciated Antibiotics F/u cultures. Maintain euvolemia Monitor renal function due to Acute kidney injury. Monitor electrolytes. Supplement as necessary. Nutritional support. Accu-Cheks, ISS. Morbid obesity, complicates all care. Diet and lifestyle modifications for weight reduction recommended. GI/DVT prophylaxis. Condition: Critical Prognosis: Poor given multiple comorbidities. Rest of plan per hospitalist and other consultants. A total of 35 minutes of critical care time was spent reviewing the patient record, examining the patient, making a diagnostic and therapeutic plan, discussing this plan with the medical personnel, following up on diagnostic studies and following the patient for clinical stability excluding any and all procedures. At least 50% of this time was spent in direct, [id number] contact. Thank you ANAHI Montoya for allowing me to participate in this patient's care. Further recommendations will depend on patient's clinical course. Please do not hesitate to contact me if you have any questions or concerns. This medical document was created using an electronic medical record system with [email or web address] dictation system. Although this document has been carefully reviewed, there may still be some phonetic and typographical errors. These areas are purely typographical due to imperfections of the software programs, and do not reflect any compromise in the patient's medical care. Dietary Evaluation Review Recommendations by RD: Increase Calorie Intake Comments: 1. Increase TF as tolerated to goal rate to 50 mL/hr.Goal rate will provide ~ 87 daily estimated energy needs and ~60% daily estimated protein needs. 2. Advance to CCHO 60g diet pending CORONER approval when medically feasible. 3. Continue to monitor patient's weight and labs. Expected Outcomes/Goals: 1. labs to improve 2. diet to advance 3. continue plan of care 4. f/u in 2-3 days Plan discussed with: Other (FERNANDO Fatima) Critical Care Time(min): 35 LIZ GUDINO MD Oct 01, 2024 23:34
[2024-10-02] VITALS (104 sets, daily range): BP systolic 77–135; BP diastolic 40–83; PULSE 72–128; RESP 14–24; TEMP 98.9–101.1; O2SAT 91–98
[2024-10-02 04:03] LABS: Basophils # (auto) 0.1 10 ^3/uL (0-0.2); Basophils % (auto) 0.6 % (0.0-2.0); Eosinophils # (auto) 0.1 10 ^3/uL (0-0.8); Eosinophils % (auto) 1.5 % (0.0-7.0); Hematocrit 35.1 % (41.0-53.0); Hemoglobin 11.7 g/dL (13.5-17.5); Lymphocytes # (auto) 2.1 10 ^3/uL (0.4-5.4); Lymphocytes % (auto) 22.5 % (10.0-50.0); Mean Corpuscular Hemoglobin 30.3 pg (28.0-32.0); Mean Corpuscular Hgb Conc. 33.4 g/dL (32.0-36.0); Mean Corpuscular Volume 90.6 fL (80.0-100.0); Monocytes # (auto) 0.9 10 ^3/uL (0-1.3); Monocytes % (auto) 9.7 % (0.0-12.0); Neutrophils # (auto) 6.1 10 ^3/uL (1.6-8.6); Neutrophils % (auto) 65.7 % (37.0-80.0); Platelet Count (auto) 332 10^3/uL (140-450); Red Blood Cells 3.88 10^6/uL (4.5-5.90); Red Cell Distribution Width 13.8 % (11.8-14.3); White Blood Cell 9.3 10^3/uL (4.4-10.8)
[2024-10-02 04:14] LABS: INR 1.24 (0.9-1.15); Partial Thromboplastin Time 27.5 SEC (24.5-34.5); Prothrombin Time 12.9 sec (9.3-11.8)
[2024-10-02 04:21] LABS: Albumin 3.6 g/dL (3.2-4.8); Anion Gap 9 (5-15); Aspartate Aminotransferase 32 U/L (13-40); BUN/Creatinine Ratio 17.2 (10.0-20.0); Blood Urea Nitrogen 11 mg/dL (9-23); Calcium 10.2 mg/dL (8.7-10.4); Carbon Dioxide 28 mmol/L (20-31); Chloride 104 mmol/L (98-107); Glucose 93 mg/dL (74-106); Potassium 3.5 mmol/L (3.5-5.1); Sodium 141 mmol/L (136-145)
[2024-10-02 04:22] LABS: Alanine Aminotransferase 50 U/L (7-40); Alkaline Phosphatase 143 U/L (46-116); Bilirubin, Total 0.4 mg/dL (0.2-1.0); Total Protein 6.6 g/dL (5.7-8.2)
[2024-10-02] MEDS: NOREPINEPHRINE 8 MG/250ML KIT 0 ML IV ONE (06:11)
--- NOTE | 2024-10-02 12:17 | DVHOP2 ---
Operative Report - 2 Report Details Date: 10/02/24 Preop Diagnosis: Respiratory failure Postop Diagnosis: Same Surgeon: David Worthington MD Microelectronics Engineer: None Anesthesiologist: Anirudh Jackson CRNA Anesthesia: General Implant: Shiley [id number] Consent: The surgery and its risks including but not limited to potentially life- threatening infection and bleeding, possible perioperative [place] or stroke were explained to the patient's family. All questions were answered to their satisfaction. The family expressed verbal understanding and wished to proceed with the surgery. Complications: None Estimated Blood Loss: 5 mL Fluids: 400 mL Name of Procedure Performed Tracheostomy Procedure Details Procedure Details: After induction of general anesthesia, patient's anterior neck was prepped and draped in standard surgical fashion. Patient had a very stiff neck and we could not fully extend his neck so the window between the cricoid cartilage and the sternal notch was very small. Small transverse incision was made in this area incision extended through the soft tissue through the platysma muscles down to the strap muscles. The strap muscles were then divided midline revealing isthmus of the thyroid gland which was divided using electrocautery revealing the anterior surface of the trachea. Ventilation was then briefly held and e ndotracheal tube cuff was deflated. Upside-down T-incision was made through the 1st and 2nd tracheal rings gaining access to the lumen of the trachea. There was a lot of mucus plug in the area which was suctioned and the endotracheal tube was withdrawn under direct visualization. A Shiley [id number] tracheostomy tube was inserted into the tracheal lumen and he was quickly placed back on the ventilator with good return of end-tidal CO2. Interrupted 3-0 Vicryl sutures were used to reapproximate the platysma muscle and skin incision were then closed using interrupted 4-0 Monocryl sutures. Surgical site was cleaned and dried dressings were applied. Sponge, needle, instrument count at the end of the case were reported to be correct by the nursing staff. The patient tolerated procedure well and at the time of dictation he is being transferred back to ICU in stable condition. Specimen: None Condition Stable Disposition Still a Patient DAVID WORTHINGTON MD Oct 02, 2024 12:17
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
--- NOTE | 2024-10-02 13:38 | DVHPN2 ---
Subjective Intubated and sedated; tracheostomy planned for today Reviewed: Care Plan, H&P, Labs, Medications, Previous Orders, Radiology, Other (Consultations) Changes from previous H/P or p: No Changes Objective Vitals Vital Signs Date Time Temp Pulse Resp B/P (MAP) Pulse Ox O2 Delivery O2 Flow Rate FiO2 10/02/24 12:30 89 24 135/72 (93) 94 10/02/24 12:22 60 10/02/24 12:00 Mechanical Ventilator+ 10/02/24 11:15 99.7 211.5 Intake/Output Intake and Output 10/02/24 07:00 Intake Total 1908.463 ml Output Total 1925 ml Balance -16.537 ml Intake Oral 350 ml IV Total 1348.463 ml Tube Feeding 210 ml Output Urine Total 1925 ml General Appearance: Other (Intubated and sedated) HEENT: Atraumatic Lungs: Other (Mechanical ventilation sounds) Cardiovascular: Regular rate, Normal S1, Normal S2 Abdomen: Normal bowel sounds, Soft Genitourinary: Other (Spence's catheter) Musculoskeletal: Weak motor strength RUE, Weak motor strength LUE Extremities: Other (1+ bilateral lower extremities edema) Neuro: Other (Sedated) Psych/Mental Status: Other (Sedated) Medications Current Medications Medications Dose Ordered Sig/Felicitas Route Start Time Stop Time Status Last Admin Dose Admin Ondansetron HCl 4 mg Q4HP PRN IV 09/01/24 10:30 Nitroglycerin 0.4 mg Q5MINP PRN SL 09/01/24 10:30 Piperacillin Sod/ Tazobactam Sod 100 ml @ 25 mls/hr Q6HR IV 09/01/24 18:00 UNV Pantoprazole Sodium 40 mg DAILY IV 09/04/24 10:00 10/02/24 09:35 40 MG Budesonide 0.5 mg BID NEB 09/04/24 10:00 10/01/24 17:56 0.5 MG Acetaminophen 650 mg Q6HP PRN PO 09/09/24 10:45 09/27/24 00:29 650 MG Diagnostic Test (Pha) 1 strip Q6HR 09/10/24 12:00 10/02/24 12:00 1 STRIP Dextrose 50 ml UD PRN IV 09/10/24 08:15 Cancel Ipratropium [place] 0.5 mg Q6HR NEB 09/13/24 12:00 10/02/24 06:14 0.5 MG Levalbuterol HCl 1.25 mg Q6HR NEB 09/13/24 12:00 10/02/24 06:14 1.25 MG Lorazepam 0.5 mg Q8HP PRN IV 09/15/24 13:15 09/15/24 20:27 0.5 MG Midazolam HCl 50 ml @ 1 mls/hr Q24H IV 09/16/24 09:00 10/02/24 09:11 9 MLS/HR Fentanyl Citrate 250 ml @ 2.5 mls/hr Q24H IV 09/16/24 09:00 10/02/24 04:44 25 MLS/HR Norepinephrine Bitartrate 32 mg/ Sodium Chloride 250 ml @ 0.938 mls/ hr Q24H IV 09/16/24 17:45 10/02/24 06:11 0.938 MLS/HR Acetylcysteine 100 mg Q6HR NEB 09/17/24 12:00 10/02/24 06:14 100 MG Enteral Nutritional Formula 1,000 ml 50ML/HR GT 09/21/24 08:30 10/01/24 12:32 1,000 ML Sodium Chloride 10 ml QSHIFT@10,22 IV 09/23/24 22:00 10/02/24 09:36 10 ML Lactulose 30 ml BID GT 09/24/24 10:00 10/01/24 22:33 30 ML Propofol 100 ml @ 4.065 mls/ hr Q24H IV 09/26/24 11:45 10/02/24 09:13 16.26 MLS/HR Doxycycline Hyclate 100 ml @ 50 mls/hr Q12HR IV 09/27/24 09:15 10/02/24 09:47 50 MLS/HR Purified Water 100 ml Q6HR GT 09/28/24 12:00 10/01/24 18:00 100 ML Insulin Glargine 12 units DAILY@1000 SC 09/28/24 10:00 10/01/24 11:09 12 UNITS Insulin Human Regular Q6HR SC 09/28/24 12:00 Dextrose 50 ml UD PRN IV 09/28/24 09:00 Glycopyrrolate 0.2 mg Q12HP IV 09/28/24 10:00 10/02/24 09:35 0.2 MG Furosemide 40 mg DAILY IV 09/29/24 10:00 10/02/24 09:36 40 MG Metoclopramide HCl 5 mg Q8HP PRN GT 09/29/24 07:30 Laboratory Results Laboratory Tests 10/02/24 03:10 Chemistry Test 10/02/24 03:10 Albumin 3.6 g/dL (3.2-4.8) Calcium Level 10.2 mg/dL (8.7-10.4) Total Protein 6.6 g/dL (5.7-8.2) Coagulation Test 10/02/24 03:10 Prothrombin Time 12.9 sec (9.3-11.8) H Prothrombin Time INR 1.24 (0.9-1.15) H Activated Partial Thromboplast Time 27.5 SEC (24.5-34.5) LFT Test 10/02/24 03:10 Alanine Aminotransferase (ALT) 50 U/L (7-40) H Alkaline Phosphatase 143 U/L (46-116) H Aspartate Amino Transferase (AST) 32 U/L (13-40) Total Bilirubin 0.4 mg/dL (0.2-1.0) Microbiology Microbiology Date/Time Source Procedure Growth Status 09/27/24 08:20 Sputum Gram Stain - Final Complete 09/27/24 08:20 Respiratory Culture - Final Methicillin Resistant S.aureus Complete 09/26/24 15:13 Urine - [place] Urine Culture - Final Complete 09/26/24 13:06 Blood Blood Culture - Final NO GROWTH AFTER 5 DAYS OF INCUBATION. Complete 09/16/24 15:13 Other Endotracheal Wash Gram Stain - Final Complete 09/16/24 15:13 Respiratory Culture - Final Methicillin Resistant S.aureus Complete Labs and/or images reviewed: Labs reviewed by me, Image(s) reviewed by me Assessment/Plan Assessment/Plan Covering Jus Soto NP: #Acute hypoxic hypercapnic respiratory failure due to asthma/COPD exacerbation secondary to MRSA pneumonia; continue mechanical ventilation as per pulmonology; reviewed ABGs and chest x-rays; tracheostomy planned for today; continue close monitoring #Septic shock due to MRSA pneumonia and Staphylococcus suspicious bacteremia; continue IV antibiotics; continue IV vasopressors as indicated; continue close monitoring #Leukocytosis due to septic shock; resolved; continue close monitoring #FELIPE; most likely vasomotor nephropathy; avoid nephrotoxic agents; kidney function returned to normal baseline; continue close monitoring #NSTEMI; demand ischemia in the setting of septic shock; type 2 [place]; continue telemetry; continue close monitoring #Schizophrenia; unclear details; to address when the patient is awake; continue close monitoring #Tobacco use disorder; to address when the patient is awake; continue close monitoring #Morbid obesity; to address when the patient is awake; continue close monitoring 99 minutes of critical care time. Late Entry. This medical document was created using an electronic medical record system with computerized dictation system. Although this document has been carefully reviewed, there might still be some phonetic and typographical errors. These areas are purely typographical due to imperfections of the software programs, and do not reflect any compromise in the patient's medical care. Plan discussed with: Other (Nurse) Date of Service: Oct 02, 2024 Billing Provider: KIANNA BANSAL MD Common Visit Codes: [id number] CARE 30-74 MIN (99 minutes), [id number] CARE-EACH +30MIN KIANNA BANSAL MD Oct 02, 2024 13:38
[2024-10-02] MEDS ORDERED: ROCURONIUM 10MG/ML 10ML VIAL IV ONE (14:34)
--- NOTE | 2024-10-02 23:21 | DVHPN2 ---
Progress Note - Dictate Date Seen: Oct 02, 2024 Medical Necessity Reason Pt with a Central, PICC or Fol: Yes The following are medically ne: Teague Catheter Reason for teague catheter: Strict I&O Subjective Patient seen and examined at bedside. Sedated, on mechanical ventilator. s/p trach Overnight events reviewed. vital signs Vital Sign Date Time Temp Pulse Resp B/P (MAP) Pulse Ox O2 Delivery O2 Flow Rate FiO2 10/02/24 23:09 85 24 116/66 (83) 94 60 10/02/24 22:00 Mechanical Ventilator+ 10/02/24 19:45 100.8 213.4 Total Intake and Output 10/01/24 10/01/24 10/02/24 15:00 23:00 07:00 Intake Total 469.560 ml 815.560 ml 623.343 ml Output Total 1450 ml 475 ml Balance 469.560 ml -634.440 ml 148.343 ml medications Current Medications Medications Dose Ordered Sig/Felicitas Route Start Time Stop Time Status Last Admin Dose Admin Ondansetron HCl 4 mg Q4HP PRN IV 09/01/24 10:30 Nitroglycerin 0.4 mg Q5MINP PRN SL 09/01/24 10:30 Piperacillin Sod/ Tazobactam Sod 100 ml @ 25 mls/hr Q6HR IV 09/01/24 18:00 UNV Pantoprazole Sodium 40 mg DAILY IV 09/04/24 10:00 10/02/24 09:35 40 MG Budesonide 0.5 mg BID NEB 09/04/24 10:00 10/01/24 17:56 0.5 MG Acetaminophen 650 mg Q6HP PRN PO 09/09/24 10:45 10/02/24 16:25 650 MG Diagnostic Test (Pha) 1 strip Q6HR 09/10/24 12:00 10/02/24 18:23 1 STRIP Dextrose 50 ml UD PRN IV 09/10/24 08:15 Cancel Ipratropium [place] 0.5 mg Q6HR NEB 09/13/24 12:00 10/02/24 23:08 0.5 MG Levalbuterol HCl 1.25 mg Q6HR NEB 09/13/24 12:00 10/02/24 23:08 1.25 MG Lorazepam 0.5 mg Q8HP PRN IV 09/15/24 13:15 09/15/24 20:27 0.5 MG Midazolam HCl 50 ml @ 1 mls/hr Q24H IV 09/16/24 09:00 10/02/24 21:19 9 MLS/HR Fentanyl Citrate 250 ml @ 2.5 mls/hr Q24H IV 09/16/24 09:00 10/02/24 15:14 25 MLS/HR Norepinephrine Bitartrate 32 mg/ Sodium Chloride 250 ml @ 0.938 mls/ hr Q24H IV 09/16/24 17:45 10/02/24 06:11 0.938 MLS/HR Acetylcysteine 100 mg Q6HR NEB 09/17/24 12:00 10/02/24 23:08 100 MG Enteral Nutritional Formula 1,000 ml 50ML/HR GT 09/21/24 08:30 10/01/24 12:32 1,000 ML Sodium Chloride 10 ml QSHIFT@10,22 IV 09/23/24 22:00 10/02/24 22:14 10 ML Lactulose 30 ml BID GT 09/24/24 10:00 10/02/24 22:13 30 ML Propofol 100 ml @ 4.065 mls/ hr Q24H IV 09/26/24 11:45 10/02/24 21:20 16.26 MLS/HR Doxycycline Hyclate 100 ml @ 50 mls/hr Q12HR IV 09/27/24 09:15 10/02/24 22:13 50 MLS/HR Purified Water 100 ml Q6HR GT 09/28/24 12:00 10/02/24 18:22 100 ML Insulin Glargine 12 units DAILY@1000 SC 09/28/24 10:00 10/01/24 11:09 12 UNITS Insulin Human Regular Q6HR SC 09/28/24 12:00 Dextrose 50 ml UD PRN IV 09/28/24 09:00 Glycopyrrolate 0.2 mg Q12HP IV 09/28/24 10:00 10/02/24 22:13 0.2 MG Furosemide 40 mg DAILY IV 09/29/24 10:00 10/02/24 09:36 40 MG Metoclopramide HCl 5 mg Q8HP PRN GT 09/29/24 07:30 objective Gen.: Patient lying in bed in medical ICU. Sedated, on mechanical ventilator. S/p Trach Head: Normocephalic, atraumatic. Eyes: PERRLA. Ears: Normal external anatomy. Throat: Endotracheal tube and orogastric tube in place. Neck: Trach in place. Chest: Transmitted breath sounds bilaterally. Decreased air entry bilaterally. No wheezing. Bibasilar crackles. Cardiovascular: Positive S1, positive S2. Regular rate and rhythm. Abdomen: Positive bowel sounds in all 4 quadrants. Soft, nontender, nondistended. : Teague in place. Normal external genitalia. Rectal: Deferred. Skin: Warm, dry. Intact. Extremities: 2+ radial pulses bilaterally. No lower extremity edema. Neuro: Sedated. laboratory and microbiology Laboratory Tests 10/02/24 03:10 Test 10/02/24 03:10 Range/Units Serum Glucose 93 74-106 mg/dL Assessment/Plan Impression: Acute hypoxic respiratory failure Acute hypercarbic respiratory failure On mechanical ventilator Pleural effusions Atelectasis Morbid obesity with a BMI of 44.8 Pulmonary edema Acute exacerbation of COPD vs Asthma Elevated troponin Events: Remains on vent support On AC mode with RR 24, VT 600, PEEP 5, FIO2 60% Taper FiO2 as tolerated Will increase PEEP to 8 S/p trach Trach care Sedated on Propofol, Versed/Fentanyl On pressors for hemodynamic support Levophed 2 mcg/min Titrate to keep mean arterial pressure greater than 65 mmHg. ABG reviewed, notable for alkalemia Continue bronchodilators Continue antibiotics Monitor WBC Diurese w/ Lasix as tolerated Monitor renal function Monitor electrolytes. Supplement as necessary. Tube feeds for nutritional support Recommend transfer to LTAC for ongoing liberation from mechanical ventilator. 09/24/24 - S/p therapeutic bronchoscopy with clearing of secretions/mucous plugging from L1-L3 and R1-R3 and R6-R10. 09/18/24 - S/p therapeutic bronchoscopy w/ RLL BAL. Mucous plugging cleared from L1-L3 and L6-L10 and R1-R3 and R6-R10 See separate procedure note for details 09/16/24 - S/p bronchoscopy w/ bronchoalveolar lavage, removed copious mucous plugs from RUL/RLL + FROYLAN. See separate procedure note for details. Labs and imaging reviewed. Rest of plan as noted below. Plan: s/p re-intubation, on mechanical ventilator On AC mode with RR 24, VT 600, PEEP 8, FIO2 60% Taper FiO2 as tolerated S/p trach Trach care Sedated for vent synchrony Bronchodilators Steroids - completed Pressors for hemodynamic support. Titrate to keep MAP above 65 mmHg/SBP above 90 mmHg. F/u Echo to evaluate LVEF, RVSP and r/o valvular dysfunction. Cardiology recommendations appreciated Antibiotics F/u cultures. Maintain euvolemia Monitor renal function due to Acute kidney injury. Monitor electrolytes. Supplement as necessary. Nutritional support. Accu-Cheks, ISS. Morbid obesity, complicates all care. Diet and lifestyle modifications for weight reduction recommended. GI/DVT prophylaxis. Condition: Critical Prognosis: Poor given multiple comorbidities. Rest of plan per hospitalist and other consultants. A total of 35 minutes of critical care time was spent reviewing the patient record, examining the patient, making a diagnostic and therapeutic plan, discussing this plan with the medical personnel, following up on diagnostic studies and following the patient for clinical stability excluding any and all procedures. At least 50% of this time was spent in direct, [id number] contact. Thank you ANAHI Montoya for allowing me to participate in this patient's care. Further recommendations will depend on patient's clinical course. Please do not hesitate to contact me if you have any questions or concerns. This medical document was created using an electronic medical record system with [employer] dictation system. Although this document has been carefully reviewed, there may still be some phonetic and typographical errors. These areas are purely typographical due to imperfections of the software programs, and do not reflect any compromise in the patient's medical care. Dietary Evaluation Review Recommendations by RD: Increase Calorie Intake Comments: 1. Increase TF as tolerated to goal rate to 50 mL/hr.Goal rate will provide ~ 87 daily estimated energy needs and ~60% daily estimated protein needs. 2. Advance to CCHO 60g diet pending [facility] approval when medically feasible. 3. Continue to monitor patient's weight and labs. Expected Outcomes/Goals: 1. labs to improve 2. diet to advance 3. continue plan of care 4. f/u in 2-3 days Plan discussed with: Other (FERNANDO Cabrera) Critical Care Time(min): 35 LIZ GUDINO MD Oct 02, 2024 23:21
[2024-10-03] VITALS (109 sets, daily range): BP systolic 84–127; BP diastolic 3–84; PULSE 6–101; RESP 19–24; TEMP 97.3–99.9; O2SAT 93–98
[2024-10-03 04:01] LABS: Basophils # (auto) 0.1 10 ^3/uL (0-0.2); Basophils % (auto) 0.7 % (0.0-2.0); Eosinophils # (auto) 0.1 10 ^3/uL (0-0.8); Eosinophils % (auto) 1.2 % (0.0-7.0); Hematocrit 37.3 % (41.0-53.0); Hemoglobin 12.6 g/dL (13.5-17.5); Lymphocytes # (auto) 2.6 10 ^3/uL (0.4-5.4); Lymphocytes % (auto) 24.3 % (10.0-50.0); Mean Corpuscular Hemoglobin 30.4 pg (28.0-32.0); Mean Corpuscular Hgb Conc. 33.8 g/dL (32.0-36.0); Mean Corpuscular Volume 89.9 fL (80.0-100.0); Monocytes % (auto) 9.9 % (0.0-12.0); Neutrophils # (auto) 6.7 10 ^3/uL (1.6-8.6); Neutrophils % (auto) 63.9 % (37.0-80.0); Nucleated Red Blood Cells % 0.1 %; Platelet Count (auto) 361 10^3/uL (140-450); Red Blood Cells 4.15 10^6/uL (4.5-5.90); Red Cell Distribution Width 13.6 % (11.8-14.3); White Blood Cell 10.5 10^3/uL (4.4-10.8)
[2024-10-03 04:18] LABS: Albumin 3.8 g/dL (3.2-4.8); Anion Gap 12 (5-15); Aspartate Aminotransferase 33 U/L (13-40); BUN/Creatinine Ratio 15.5 (10.0-20.0); Blood Urea Nitrogen 11 mg/dL (9-23); Calcium 10.3 mg/dL (8.7-10.4); Carbon Dioxide 24 mmol/L (20-31); Chloride 103 mmol/L (98-107); Glucose 90 mg/dL (74-106); Potassium 3.6 mmol/L (3.5-5.1); Sodium 139 mmol/L (136-145)
[2024-10-03 04:19] LABS: Alanine Aminotransferase 44 U/L (7-40); Alkaline Phosphatase 145 U/L (46-116); Bilirubin, Total 0.5 mg/dL (0.2-1.0); Total Protein 6.9 g/dL (5.7-8.2)
--- NOTE | 2024-10-03 05:23 | DVH ---
CHEST RADIOGRAPH Indication: On mechanical ventilation via tracheostomy. Technique: Single frontal view of the chest was obtained Comparison: XY CHEST PORTABLE on DOS: 09/30/24, XY CHEST PORTABLE on DOS: 09/29/24, XY CHEST PORTABLE o n DOS: 09/28/24 IMPRESSION: Support lines and tubes appear similar in position. Bilateral pleural effusions and pulmonary vascula r congestion have mildly improved. No pneumothorax.
--- NOTE | 2024-10-03 06:11 | DVHPN2 ---
Subjective Sedated; on mechanical ventilation via tracheostomy Reviewed: Care Plan, H&P, Labs, Medications, Previous Orders, Radiology, Other (Consultations) Changes from previous H/P or p: Changes Objective Vitals Vital Signs Date Time Temp Pulse Resp B/P (MAP) Pulse Ox O2 Delivery O2 Flow Rate FiO2 10/03/24 04:25 91 24 95/50 (65) 95 60 10/03/24 04:00 Mechanical Ventilator+ 10/03/24 02:00 99.5 211.1 Intake/Output Intake and Output 10/03/24 07:00 Intake Total 1526.290 ml Output Total 875 ml Balance 651.290 ml Intake Oral 200 ml IV Total 1326.290 ml Output Urine Total 875 ml General Appearance: Other (Sedated; tracheostomy in place as below) HEENT: Atraumatic, Other (Tracheostomy in place with no drainage/discharge/bleeding) Lungs: Other (Mechanical ventilation sounds) Cardiovascular: Regular rate, Normal S1, Normal S2 Abdomen: Normal bowel sounds, Soft Genitourinary: Other (Spence's catheter) Musculoskeletal: Weak motor strength RUE, Weak motor strength LUE Extremities: Other (1+ bilateral lower extremities edema) Neuro: Other (Sedated) Psych/Mental Status: Other (Sedated) Medications Current Medications Medications Dose Ordered Sig/Felicitas Route Start Time Stop Time Status Last Admin Dose Admin Ondansetron HCl 4 mg Q4HP PRN IV 09/01/24 10:30 Nitroglycerin 0.4 mg Q5MINP PRN SL 09/01/24 10:30 Piperacillin Sod/ Tazobactam Sod 100 ml @ 25 mls/hr Q6HR IV 09/01/24 18:00 UNV Pantoprazole Sodium 40 mg DAILY IV 09/04/24 10:00 10/02/24 09:35 40 MG Budesonide 0.5 mg BID NEB 09/04/24 10:00 10/01/24 17:56 0.5 MG Acetaminophen 650 mg Q6HP PRN PO 09/09/24 10:45 10/02/24 16:25 650 MG Diagnostic Test (Pha) 1 strip Q6HR 09/10/24 12:00 10/03/24 05:48 1 STRIP Dextrose 50 ml UD PRN IV 09/10/24 08:15 Cancel Ipratropium [place] 0.5 mg Q6HR NEB 09/13/24 12:00 10/02/24 23:08 0.5 MG Levalbuterol HCl 1.25 mg Q6HR NEB 09/13/24 12:00 10/02/24 23:08 1.25 MG Lorazepam 0.5 mg Q8HP PRN IV 09/15/24 13:15 09/15/24 20:27 0.5 MG Midazolam HCl 50 ml @ 1 mls/hr Q24H IV 09/16/24 09:00 10/03/24 03:24 9 MLS/HR Fentanyl Citrate 250 ml @ 2.5 mls/hr Q24H IV 09/16/24 09:00 10/03/24 01:07 25 MLS/HR Norepinephrine Bitartrate 32 mg/ Sodium Chloride 250 ml @ 0.938 mls/ hr Q24H IV 09/16/24 17:45 10/02/24 06:11 0.938 MLS/HR Acetylcysteine 100 mg Q6HR NEB 09/17/24 12:00 10/02/24 23:08 100 MG Enteral Nutritional Formula 1,000 ml 50ML/HR GT 09/21/24 08:30 10/01/24 12:32 1,000 ML Sodium Chloride 10 ml QSHIFT@10,22 IV 09/23/24 22:00 10/02/24 22:14 10 ML Lactulose 30 ml BID GT 09/24/24 10:00 10/02/24 22:13 30 ML Propofol 100 ml @ 4.065 mls/ hr Q24H IV 09/26/24 11:45 10/03/24 04:00 24.39 MLS/HR Doxycycline Hyclate 100 ml @ 50 mls/hr Q12HR IV 09/27/24 09:15 10/02/24 22:13 50 MLS/HR Purified Water 100 ml Q6HR GT 09/28/24 12:00 10/03/24 05:48 100 ML Insulin Glargine 12 units DAILY@1000 SC 09/28/24 10:00 10/01/24 11:09 12 UNITS Insulin Human Regular Q6HR SC 09/28/24 12:00 Dextrose 50 ml UD PRN IV 09/28/24 09:00 Glycopyrrolate 0.2 mg Q12HP IV 09/28/24 10:00 10/02/24 22:13 0.2 MG Furosemide 40 mg DAILY IV 09/29/24 10:00 10/02/24 09:36 40 MG Metoclopramide HCl 5 mg Q8HP PRN GT 09/29/24 07:30 Laboratory Results Laboratory Tests 10/03/24 03:00 10/03/24 03:37 Chemistry Test 10/03/24 03:00 Albumin 3.8 g/dL (3.2-4.8) Calcium Level 10.3 mg/dL (8.7-10.4) Total Protein 6.9 g/dL (5.7-8.2) LFT Test 10/03/24 03:00 Alanine Aminotransferase (ALT) 44 U/L (7-40) H Alkaline Phosphatase 145 U/L (46-116) H Aspartate Amino Transferase (AST) 33 U/L (13-40) Total Bilirubin 0.5 mg/dL (0.2-1.0) Microbiology Microbiology Date/Time Source Procedure Growth Status 09/27/24 08:20 Sputum Gram Stain - Final Complete 09/27/24 08:20 Respiratory Culture - Final Methicillin Resistant S.aureus Complete 09/26/24 15:13 Urine - [place] Urine Culture - Final Complete 09/26/24 13:06 Blood Blood Culture - Final NO GROWTH AFTER 5 DAYS OF INCUBATION. Complete 09/16/24 15:13 Other Endotracheal Wash Gram Stain - Final Complete 09/16/24 15:13 Respiratory Culture - Final Methicillin Resistant S.aureus Complete Labs and/or images reviewed: Labs reviewed by me, Image(s) reviewed by me Assessment/Plan Assessment/Plan Covering Jus Soto NP: #Acute hypoxic hypercapnic respiratory failure due to asthma/COPD exacerbation secondary to MRSA pneumonia; continue mechanical ventilation via tracheostomy as per pulmonology; reviewed ABGs and chest x-rays; continue close monitoring #Septic shock due to MRSA pneumonia and Staphylococcus suspicious bacteremia; continue IV antibiotics; continue IV vasopressors as indicated; continue close monitoring #Leukocytosis due to septic shock; resolved; continue close monitoring #FELIPE; most likely vasomotor nephropathy; avoid nephrotoxic agents; kidney function returned to normal baseline; continue close monitoring #NSTEMI; demand ischemia in the setting of septic shock; type 2 IN; continue telemetry; continue close monitoring #Schizophrenia; unclear details; to address when the patient is awake; continue close monitoring #Tobacco use disorder; to address when the patient is awake; continue close monitoring #Morbid obesity; to address when the patient is awake; continue close monitoring 66 minutes of critical care time. Late Entry. This medical document was created using an electronic medical record system with computerized dictation system. Although this document has been carefully reviewed, there might still be some phonetic and typographical errors. These areas are purely typographical due to imperfections of the software programs, and do not reflect any compromise in the patient's medical care. Plan discussed with: Other (Nurse) My Orders Orders - KIANNA BANSAL MD Procedure Category Date Status Time Chest Xray 1 View XY 10/03/24 Resulted 04:00 Abg W/ Co-Ox RT 10/03/24 Logged 06:00 Complete Blood Count LAB 10/04/24 Verified 04:00 Comprehensive LAB 10/04/24 Verified Metabolic Panel 04:00 Date of Service: Oct 03, 2024 Billing Provider: KIANNA BANSAL MD Common Visit Codes: 51206-[id number] CARE 30-74 MIN (66 minutes) KIANNA BANSAL MD Oct 03, 2024 06:11
[2024-10-03 07:09] LABS: Base Excess -0.8 mmol/L (-2.0-3.0)
[2024-10-03] MEDS: PROPOFOL 100 ML IV SCH (12:24)
[2024-10-03 15:19] LABS: Base Excess 1.5 mmol/L (-2.0-3.0)
--- NOTE | 2024-10-03 22:36 | DVHPN2 ---
Progress Note - Dictate Date Seen: Oct 03, 2024 Medical Necessity Reason Pt with a Central, PICC or Fol: Yes The following are medically ne: Teague Catheter Reason for teague catheter: Strict I&O Subjective Patient seen and examined at bedside. Sedated, on mechanical ventilator. s/p trach Overnight events reviewed. vital signs Vital Sign Date Time Temp Pulse Resp B/P (MAP) Pulse Ox O2 Delivery O2 Flow Rate FiO2 10/03/24 22:00 72 10/03/24 22:00 97.7 20 127/84 (98) 96 207.9 10/03/24 22:00 Mechanical Ventilator+ 55 55 Total Intake and Output 10/02/24 10/02/24 10/03/24 15:00 23:00 07:00 Intake Total 509.584 ml 619.524 ml 777.500 ml Output Total 875 ml 400 ml Balance 509.584 ml -255.476 ml 377.500 ml medications Current Medications Medications Dose Ordered Sig/Felicitas Route Start Time Stop Time Status Last Admin Dose Admin Ondansetron HCl 4 mg Q4HP PRN IV 09/01/24 10:30 Nitroglycerin 0.4 mg Q5MINP PRN SL 09/01/24 10:30 Piperacillin Sod/ Tazobactam Sod 100 ml @ 25 mls/hr Q6HR IV 09/01/24 18:00 UNV Pantoprazole Sodium 40 mg DAILY IV 09/04/24 10:00 10/03/24 10:07 40 MG Budesonide 0.5 mg BID NEB 09/04/24 10:00 10/03/24 17:46 0.5 MG Acetaminophen 650 mg Q6HP PRN PO 09/09/24 10:45 10/02/24 16:25 650 MG Diagnostic Test (Pha) 1 strip Q6HR 09/10/24 12:00 10/03/24 17:59 1 STRIP Dextrose 50 ml UD PRN IV 09/10/24 08:15 Cancel Ipratropium [place] 0.5 mg Q6HR NEB 09/13/24 12:00 10/03/24 17:45 0.5 MG Levalbuterol HCl 1.25 mg Q6HR NEB 09/13/24 12:00 10/03/24 17:45 1.25 MG Lorazepam 0.5 mg Q8HP PRN IV 09/15/24 13:15 09/15/24 20:27 0.5 MG Midazolam HCl 50 ml @ 1 mls/hr Q24H IV 09/16/24 09:00 10/03/24 18:26 6 MLS/HR Fentanyl Citrate 250 ml @ 2.5 mls/hr Q24H IV 09/16/24 09:00 10/03/24 19:45 25 MLS/HR Norepinephrine Bitartrate 32 mg/ Sodium Chloride 250 ml @ 0.938 mls/ hr Q24H IV 09/16/24 17:45 10/03/24 17:00 1.875 MLS/HR Acetylcysteine 100 mg Q6HR NEB 09/17/24 12:00 10/03/24 17:46 100 MG Enteral Nutritional Formula 1,000 ml 50ML/HR GT 09/21/24 08:30 10/03/24 08:00 1,000 ML Sodium Chloride 10 ml QSHIFT@10,22 IV 09/23/24 22:00 10/03/24 21:56 10 ML Lactulose 30 ml BID GT 09/24/24 10:00 10/03/24 21:55 30 ML Doxycycline Hyclate 100 ml @ 50 mls/hr Q12HR IV 09/27/24 09:15 10/03/24 22:00 50 MLS/HR Purified Water 100 ml Q6HR GT 09/28/24 12:00 10/03/24 17:59 100 ML Insulin Glargine 12 units DAILY@1000 SC 09/28/24 10:00 10/03/24 10:24 12 UNITS Insulin Human Regular Q6HR SC 09/28/24 12:00 Dextrose 50 ml UD PRN IV 09/28/24 09:00 Glycopyrrolate 0.2 mg Q12HP IV 09/28/24 10:00 10/03/24 21:55 0.2 MG Furosemide 40 mg DAILY IV 09/29/24 10:00 10/03/24 10:08 40 MG Metoclopramide HCl 5 mg Q8HP PRN GT 09/29/24 07:30 Propofol 100 ml @ 3.768 mls/ hr Q24H IV 10/03/24 12:00 10/03/24 19:44 22.608 MLS/HR objective Gen.: Patient lying in bed in medical ICU. Sedated, on mechanical ventilator. S/p Trach Head: Normocephalic, atraumatic. Eyes: PERRLA. Ears: Normal external anatomy. Throat: Endotracheal tube and orogastric tube in place. Neck: Trach in place. Chest: Transmitted breath sounds bilaterally. Decreased air entry bilaterally. No wheezing. Bibasilar crackles. Cardiovascular: Positive S1, positive S2. Regular rate and rhythm. Abdomen: Positive bowel sounds in all 4 quadrants. Soft, nontender, nondistended. : Teague in place. Normal external genitalia. Rectal: Deferred. Skin: Warm, dry. Intact. Extremities: 2+ radial pulses bilaterally. No lower extremity edema. Neuro: Sedated. laboratory and microbiology Laboratory Tests 10/03/24 03:37 10/03/24 03:00 Test 10/03/24 03:00 Range/Units Serum Glucose 90 74-106 mg/dL Assessment/Plan Impression: Acute hypoxic respiratory failure Acute hypercarbic respiratory failure On mechanical ventilator Pleural effusions Atelectasis Morbid obesity with a BMI of 44.8 Pulmonary edema Acute exacerbation of COPD vs Asthma Elevated troponin Events: Remains on vent support ABG shows alkalemia - Decreased RR to 20, decreased VT to 500, decreased FiO2 to 55% Vent settings; AC mode with RR 24 -->20, VT 600 -->500, PEEP 8, FIO2 60 -->55% S/p trach Trach care Sedated on Propofol, Versed/Fentanyl On pressors for hemodynamic support Levophed 4 mcg/min Titrate to keep mean arterial pressure greater than 65 mmHg. Continue bronchodilators Continue antibiotics Monitor WBC Diurese w/ Lasix as tolerated Monitor renal function Monitor electrolytes. Supplement as necessary. Tube feeds via NGT for nutritional support Recommend transfer to LTAC for ongoing liberation from mechanical ventilator. 09/24/24 - S/p therapeutic bronchoscopy with clearing of secretions/mucous plugging from L1-L3 and R1-R3 and R6-R10. 09/18/24 - S/p therapeutic bronchoscopy w/ RLL BAL. Mucous plugging cleared from L1-L3 and L6-L10 and R1-R3 and R6-R10 See separate procedure note for details 09/16/24 - S/p bronchoscopy w/ bronchoalveolar lavage, removed copious mucous plugs from RUL/RLL + FROYLAN. See separate procedure note for details. Labs and imaging reviewed. Rest of plan as noted below. Plan: s/p intubation, on mechanical ventilator On AC mode with RR 20, VT 500, PEEP 8, FIO2 55% Taper FiO2 as tolerated S/p trach Trach care Sedated for vent synchrony Bronchodilators Steroids - completed Pressors for hemodynamic support. Titrate to keep MAP above 65 mmHg/SBP above 90 mmHg. F/u Echo to evaluate LVEF, RVSP and r/o valvular dysfunction. Cardiology recommendations appreciated Antibiotics F/u cultures. Maintain euvolemia Monitor renal function due to Acute kidney injury. Monitor electrolytes. Supplement as necessary. Nutritional support. Accu-Cheks, ISS. Morbid obesity, complicates all care. Diet and lifestyle modifications for weight reduction recommended. GI/DVT prophylaxis. Condition: Critical Prognosis: Poor given multiple comorbidities. Rest of plan per hospitalist and other consultants. A total of 35 minutes of critical care time was spent reviewing the patient record, examining the patient, making a diagnostic and therapeutic plan, discussing this plan with the medical personnel, following up on diagnostic studies and following the patient for clinical stability excluding any and all procedures. At least 50% of this time was spent in direct, [id number] contact. Thank you ANAHI Montoya for allowing me to participate in this patient's care. Further recommendations will depend on patient's clinical course. Please do not hesitate to contact me if you have any questions or concerns. This medical document was created using an electronic medical record system with [employer] dictation system. Although this document has been carefully reviewed, there may still be some phonetic and typographical errors. These areas are purely typographical due to imperfections of the software programs, and do not reflect any compromise in the patient's medical care. Dietary Evaluation Review Recommendations by RD: Increase Calorie Intake Comments: 1. Increase TF as tolerated to goal rate to 50 mL/hr.Goal rate will provide ~ 87 daily estimated energy needs and ~60% daily estimated protein needs. 2. Advance to CCHO 60g diet pending [facility] approval when medically feasible. 3. Continue to monitor patient's weight and labs. Expected Outcomes/Goals: 1. labs to improve 2. diet to advance 3. continue plan of care 4. f/u in 2-3 days Plan discussed with: Other (FERNANDO Dawn/Bettina) Critical Care Time(min): 35 LIZ GUDINO MD Oct 03, 2024 22:36
[2024-10-04] VITALS (110 sets, daily range): BP systolic 85–128; BP diastolic 41–79; PULSE 61–120; RESP 17–28; TEMP 97.3–100.6; O2SAT 89–99
[2024-10-04 03:47] LABS: Basophils # (auto) 0.1 10 ^3/uL (0-0.2); Basophils % (auto) 0.8 % (0.0-2.0); Eosinophils # (auto) 0.2 10 ^3/uL (0-0.8); Eosinophils % (auto) 1.6 % (0.0-7.0); Hematocrit 37.2 % (41.0-53.0); Hemoglobin 12.6 g/dL (13.5-17.5); Lymphocytes # (auto) 2.1 10 ^3/uL (0.4-5.4); Mean Corpuscular Hemoglobin 30.7 pg (28.0-32.0); Mean Corpuscular Volume 90.3 fL (80.0-100.0); Monocytes % (auto) 9.8 % (0.0-12.0); Neutrophils # (auto) 7.3 10 ^3/uL (1.6-8.6); Neutrophils % (auto) 67.8 % (37.0-80.0); Nucleated Red Blood Cells % 0.1 %; Platelet Count (auto) 349 10^3/uL (140-450); Red Blood Cells 4.12 10^6/uL (4.5-5.90); Red Cell Distribution Width 13.8 % (11.8-14.3); White Blood Cell 10.7 10^3/uL (4.4-10.8)
[2024-10-04 04:16] LABS: Anion Gap 12 (5-15); BUN/Creatinine Ratio 15.2 (10.0-20.0); Bilirubin, Total 0.4 mg/dL (0.2-1.0); Blood Urea Nitrogen 10 mg/dL (9-23); Calcium 10.3 mg/dL (8.7-10.4); Carbon Dioxide 27 mmol/L (20-31); Chloride 101 mmol/L (98-107); Potassium 3.7 mmol/L (3.5-5.1); Sodium 140 mmol/L (136-145)
[2024-10-04 04:22] LABS: Aspartate Aminotransferase 22 U/L (13-40)
[2024-10-04 04:29] LABS: Alanine Aminotransferase 42 U/L (7-40); Alkaline Phosphatase 150 U/L (46-116); Glucose 115 mg/dL (74-106)
[2024-10-04 08:48] LABS: Base Excess 1.6 mmol/L (-2.0-3.0)
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
[2024-10-04] MEDS: risperiDONE 1 MG TAB PO SCH (21:46)
--- NOTE | 2024-10-04 23:38 | DVHPN2 ---
Progress Note - Dictate Date Seen: Oct 04, 2024 Medical Necessity Reason Pt with a Central, PICC or Fol: Yes The following are medically ne: Teague Catheter Reason for teague catheter: Strict I&O Subjective Patient seen and examined at bedside. Sedated, on mechanical ventilator. s/p trach Overnight events reviewed. vital signs Vital Sign Date Time Temp Pulse Resp B/P (MAP) Pulse Ox O2 Delivery O2 Flow Rate FiO2 10/04/24 23:00 100.2 98 20 106/63 (77) 96 212.4 10/04/24 22:05 60 10/04/24 22:00 Mechanical Ventilator+ Total Intake and Output 10/03/24 10/03/24 10/04/24 15:00 23:00 07:00 Intake Total 514.816 ml 719.864 ml 1023.060 ml Output Total 1600 ml 600 ml Balance 514.816 ml -880.136 ml 423.060 ml medications Current Medications Medications Dose Ordered Sig/Felicitas Route Start Time Stop Time Status Last Admin Dose Admin Ondansetron HCl 4 mg Q4HP PRN IV 09/01/24 10:30 Nitroglycerin 0.4 mg Q5MINP PRN SL 09/01/24 10:30 Piperacillin Sod/ Tazobactam Sod 100 ml @ 25 mls/hr Q6HR IV 09/01/24 18:00 UNV Acetaminophen 650 mg Q6HP PRN PO 09/09/24 10:45 10/04/24 21:46 650 MG Diagnostic Test (Pha) 1 strip Q6HR 09/10/24 12:00 10/04/24 18:12 1 STRIP Dextrose 50 ml UD PRN IV 09/10/24 08:15 Cancel Ipratropium [place] 0.5 mg Q6HR NEB 09/13/24 12:00 10/04/24 17:54 0.5 MG Levalbuterol HCl 1.25 mg Q6HR NEB 09/13/24 12:00 10/04/24 17:54 1.25 MG Lorazepam 0.5 mg Q8HP PRN IV 09/15/24 13:15 09/15/24 20:27 0.5 MG Midazolam HCl 50 ml @ 1 mls/hr Q24H IV 09/16/24 09:00 10/04/24 15:16 3 MLS/HR Fentanyl Citrate 250 ml @ 2.5 mls/hr Q24H IV 09/16/24 09:00 10/04/24 22:01 17.5 MLS/HR Norepinephrine Bitartrate 32 mg/ Sodium Chloride 250 ml @ 0.938 mls/ hr Q24H IV 09/16/24 17:45 10/03/24 17:00 1.875 MLS/HR Acetylcysteine 100 mg Q6HR NEB 09/17/24 12:00 10/04/24 17:54 100 MG Sodium Chloride 10 ml QSHIFT@10,22 IV 09/23/24 22:00 10/04/24 22:01 10 ML Lactulose 30 ml BID GT 09/24/24 10:00 10/03/24 21:55 30 ML Doxycycline Hyclate 100 ml @ 50 mls/hr Q12HR IV 09/27/24 09:15 10/04/24 21:46 50 MLS/HR Purified Water 100 ml Q6HR GT 09/28/24 12:00 10/04/24 12:32 100 ML Insulin Glargine 12 units DAILY@1000 SC 09/28/24 10:00 10/04/24 09:42 12 UNITS Insulin Human Regular Q6HR SC 09/28/24 12:00 10/04/24 18:17 2 UNITS Dextrose 50 ml UD PRN IV 09/28/24 09:00 Glycopyrrolate 0.2 mg Q12HP IV 09/28/24 10:00 10/04/24 21:53 0.2 MG Furosemide 40 mg DAILY IV 09/29/24 10:00 10/04/24 09:26 40 MG Metoclopramide HCl 5 mg Q8HP PRN GT 09/29/24 07:30 Propofol 100 ml @ 3.768 mls/ hr Q24H IV 10/03/24 12:00 10/04/24 22:17 11.304 MLS/HR Enteral Nutritional Formula 1,000 ml 50ML/HR GT 10/04/24 14:00 Risperidone 2 mg BID PO 10/04/24 22:00 10/04/24 21:46 2 MG objective Gen.: Patient lying in bed in medical ICU. Sedated, on mechanical ventilator. S/p Trach Head: Normocephalic, atraumatic. Eyes: PERRLA. Ears: Normal external anatomy. Throat: Endotracheal tube and orogastric tube in place. Neck: Trach in place. Chest: Transmitted breath sounds bilaterally. Decreased air entry bilaterally. No wheezing. Bibasilar crackles. Cardiovascular: Positive S1, positive S2. Regular rate and rhythm. Abdomen: Positive bowel sounds in all 4 quadrants. Soft, nontender, nondistended. : Teague in place. Normal external genitalia. Rectal: Deferred. Skin: Warm, dry. Intact. Extremities: 2+ radial pulses bilaterally. No lower extremity edema. Neuro: Sedated. laboratory and microbiology Laboratory Tests 10/04/24 03:28 Test 10/04/24 03:28 Range/Units Serum Glucose 115 H 74-106 mg/dL Assessment/Plan Impression: Acute hypoxic respiratory failure Acute hypercarbic respiratory failure On mechanical ventilator Pleural effusions Atelectasis Morbid obesity with a BMI of 44.8 Pulmonary edema Acute exacerbation of COPD vs Asthma Elevated troponin Events: Remains on vent support ABG reviewed, compensated On AC mode with RR 20, VT 500, PEEP 8, FIO2 45% Improved Fio2 requirements. S/p trach Trach care Sedated on Propofol, Versed/Fentanyl Off Levophed, hemodynamically stable Continue bronchodilators Continue antibiotics Monitor WBC Diurese w/ Lasix as tolerated Monitor renal function Monitor electrolytes. Supplement as necessary. Tube feeds via NGT for nutritional support Recommend transfer to LTAC for ongoing liberation from mechanical ventilator. 09/24/24 - S/p therapeutic bronchoscopy with clearing of secretions/mucous plugging from L1-L3 and R1-R3 and R6-R10. 09/18/24 - S/p therapeutic bronchoscopy w/ RLL BAL. Mucous plugging cleared from L1-L3 and L6-L10 and R1-R3 and R6-R10 See separate procedure note for details 09/16/24 - S/p bronchoscopy w/ bronchoalveolar lavage, removed copious mucous plugs from RUL/RLL + FROYLAN. See separate procedure note for details. Labs and imaging reviewed. Rest of plan as noted below. Plan: s/p intubation, on mechanical ventilator On AC mode with RR 20, VT 500, PEEP 8, FIO2 45% Taper FiO2 as tolerated S/p trach Trach care Sedated for vent synchrony Bronchodilators Steroids - completed Pressors if necessary for hemodynamic support. Titrate to keep MAP above 65 mmHg/SBP above 90 mmHg. F/u Echo to evaluate LVEF, RVSP and r/o valvular dysfunction. Cardiology recommendations appreciated Antibiotics F/u cultures. Maintain euvolemia Monitor renal function due to Acute kidney injury. Monitor electrolytes. Supplement as necessary. Nutritional support. Accu-Cheks, ISS. Morbid obesity, complicates all care. Diet and lifestyle modifications for weight reduction recommended. GI/DVT prophylaxis. Condition: Critical Prognosis: Poor given multiple comorbidities. Rest of plan per hospitalist and other consultants. A total of 35 minutes of critical care time was spent reviewing the patient record, examining the patient, making a diagnostic and therapeutic plan, discussing this plan with the medical personnel, following up on diagnostic studies and following the patient for clinical stability excluding any and all procedures. At least 50% of this time was spent in direct, lovx-wh-aogc contact. Thank you ANAHI Montoya for allowing me to participate in this patient's care. Further recommendations will depend on patient's clinical course. Please do not hesitate to contact me if you have any questions or concerns. This medical document was created using an electronic medical record system with [employer] dictation system. Although this document has been carefully reviewed, there may still be some phonetic and typographical errors. These areas are purely typographical due to imperfections of the software programs, and do not reflect any compromise in the patient's medical care. Dietary Evaluation Review Recommendations by RD: Increase Calorie Intake Comments: 1. Increase TF as tolerated to goal rate to 50 mL/hr.Goal rate will provide ~ 87 daily estimated energy needs and ~60% daily estimated protein needs. 2. Advance to CCHO 60g diet pending [employer] approval when medically feasible. 3. Continue to monitor patient's weight and labs. Expected Outcomes/Goals: 1. labs to improve 2. diet to advance 3. continue plan of care 4. f/u in 2-3 days Plan discussed with: Other (FERNANDO Saha) Critical Care Time(min): 35 LIZ GUDINO MD Oct 04, 2024 23:38
[2024-10-05] VITALS (107 sets, daily range): BP systolic 91–135; BP diastolic 47–77; PULSE 72–127; RESP 9–21; TEMP 99–100; O2SAT 93–100
--- NOTE | 2024-10-05 08:33 | DVH ---
EXAM: XY CHEST XRAY 1 VIEW Indication: pna Technique: Single frontal view of the chest was obtained Comparison: XY CHEST XRAY 1 VIEW on DOS: 10/03/24, XY CHEST PORTABLE on DOS: 09/30/24, XY CHEST PORTABL E on DOS: 09/29/24, XY CHEST PORTABLE on DOS: 09/28/24, XY CHEST PORTABLE on DOS: 09/27/24 FINDINGS: Lines and Tubes: Tracheostomy tube is visualized. Enteric tube tip projects over the expected region of the stomach. Lungs: Worsening multifocal consolidative opacities. Pleura: No effusion. Left costophrenic angle collimated from field of view. No pneumothorax. Cardiomediastinal contours: Unremarkable Bones: No acute osseous abnormality. IMPRESSION: Worsening multifocal consolidative opacities.
--- NOTE | 2024-10-05 08:50 | DVHPN2 ---
Subjective Intubated and chemically sedated. Reviewed: Care Plan, H&P, Labs, Medications, Previous Orders, Radiology, Other (Consultations) Changes from previous H/P or p: No Changes Objective Vitals Vital Signs Date Time Temp Pulse Resp B/P (MAP) Pulse Ox O2 Delivery O2 Flow Rate FiO2 10/05/24 08:03 97 20 96/50 (65) 97 45 10/05/24 06:45 99.3 210.7 10/05/24 06:00 Mechanical Ventilator+ Intake/Output Intake and Output 10/05/24 07:00 Intake Total 2366.576 ml Output Total 2425 ml Balance -58.424 ml Intake Oral 870 ml IV Total 904.576 ml Tube Feeding 592 ml Output Urine Total 2425 ml # Bowel Movements 1 General Appearance: Other (Intubated and Sedated) HEENT: Atraumatic, PERRLA, Other (Tracheostomy in place with no drainage/discharge/bleeding) Neck: Other (Trach) Lungs: Other (Mechanical ventilation sounds) Cardiovascular: Regular rate, Normal S1, Normal S2 Abdomen: Normal bowel sounds, Soft Genitourinary: Other (Spence's catheter) Musculoskeletal: Weak motor strength RUE, Weak motor strength LUE Extremities: Other (1+ bilateral lower extremities edema) Neuro: Other (Sedated) Skin: Dry, Intact Psych/Mental Status: Other (Sedated) Medications Current Medications Medications Dose Ordered Sig/Felicitas Route Start Time Stop Time Status Last Admin Dose Admin Ondansetron HCl 4 mg Q4HP PRN IV 09/01/24 10:30 Nitroglycerin 0.4 mg Q5MINP PRN SL 09/01/24 10:30 Piperacillin Sod/ Tazobactam Sod 100 ml @ 25 mls/hr Q6HR IV 09/01/24 18:00 UNV Acetaminophen 650 mg Q6HP PRN PO 09/09/24 10:45 10/04/24 21:46 650 MG Diagnostic Test (Pha) 1 strip Q6HR 09/10/24 12:00 10/05/24 05:36 1 STRIP Dextrose 50 ml UD PRN IV 09/10/24 08:15 Cancel Ipratropium [place] 0.5 mg Q6HR NEB 09/13/24 12:00 10/05/24 06:12 0.5 MG Levalbuterol HCl 1.25 mg Q6HR NEB 09/13/24 12:00 10/05/24 06:12 1.25 MG Lorazepam 0.5 mg Q8HP PRN IV 09/15/24 13:15 09/15/24 20:27 0.5 MG Midazolam HCl 50 ml @ 1 mls/hr Q24H IV 09/16/24 09:00 10/05/24 05:22 3 MLS/HR Fentanyl Citrate 250 ml @ 2.5 mls/hr Q24H IV 09/16/24 09:00 10/04/24 22:01 17.5 MLS/HR Norepinephrine Bitartrate 32 mg/ Sodium Chloride 250 ml @ 0.938 mls/ hr Q24H IV 09/16/24 17:45 10/03/24 17:00 1.875 MLS/HR Acetylcysteine 100 mg Q6HR NEB 09/17/24 12:00 10/05/24 06:12 100 MG Sodium Chloride 10 ml QSHIFT@10,22 IV 09/23/24 22:00 10/04/24 22:01 10 ML Lactulose 30 ml BID GT 09/24/24 10:00 10/03/24 21:55 30 ML Doxycycline Hyclate 100 ml @ 50 mls/hr Q12HR IV 09/27/24 09:15 10/04/24 21:46 50 MLS/HR Purified Water 100 ml Q6HR GT 09/28/24 12:00 10/05/24 05:36 100 ML Insulin Glargine 12 units DAILY@1000 SC 09/28/24 10:00 10/04/24 09:42 12 UNITS Insulin Human Regular Q6HR SC 09/28/24 12:00 10/04/24 18:17 2 UNITS Dextrose 50 ml UD PRN IV 09/28/24 09:00 Glycopyrrolate 0.2 mg Q12HP IV 09/28/24 10:00 10/04/24 21:53 0.2 MG Furosemide 40 mg DAILY IV 09/29/24 10:00 10/04/24 09:26 40 MG Metoclopramide HCl 5 mg Q8HP PRN GT 09/29/24 07:30 Propofol 100 ml @ 3.768 mls/ hr Q24H IV 10/03/24 12:00 10/05/24 05:22 18.84 MLS/HR Enteral Nutritional Formula 1,000 ml 50ML/HR GT 10/04/24 14:00 Risperidone 2 mg BID PO 10/04/24 22:00 10/04/24 21:46 2 MG Laboratory Results Laboratory Tests 10/04/24 03:28 Microbiology Microbiology Date/Time Source Procedure Growth Status 09/27/24 08:20 Sputum Gram Stain - Final Complete 09/27/24 08:20 Respiratory Culture - Final Methicillin Resistant S.aureus Complete 09/26/24 15:13 Urine - [place] Urine Culture - Final Complete 09/26/24 13:06 Blood Blood Culture - Final NO GROWTH AFTER 5 DAYS OF INCUBATION. Complete 09/16/24 15:13 Other Endotracheal Wash Gram Stain - Final Complete 09/16/24 15:13 Respiratory Culture - Final Methicillin Resistant S.aureus Complete Labs and/or images reviewed: Labs reviewed by me, Image(s) reviewed by me Assessment/Plan Assessment/Plan Impression: -acute hypoxic and hypercarbic respiratory failure with failure of noninvasive positive pressure ventilation -community-acquired pneumonia, MRSA -morbid obesity -nicotine dependence -sepsis -history of schizophrenia -NSTEMI type 2 Plan: Events: Awaiting for transfer to LTACH -Wean pressors. Hold Lasix -continue tube feeding, -Continue Bowel Regimen -continue regular insulin sliding scale, Lantus 12 units daily -pulmonology consultation: Recommendations reviewed -Continue doxy. -Solu-Medrol to 40 mg daily -De-escalate abx -continue DVT prophylaxis -PUD prophylaxis -continue bronchodilators, Pulmicort, Mucomyst -repeat chest x-ray Critical care time spent with patient discussing and formulating plan of care: 40 minutes. This does not include time spent performing procedures. This medical document was created using an electronic medical record system with [employer] dictation system. Although this document has been carefully reviewed, there may still be some phonetic and typographical errors. These areas are purely typographical due to imperfections of the software programs, and do not reflect any compromise in the patient's medical care. Plan discussed with: Patient, Other (RN) My Orders Orders - ZUHAIR GUILLORY NP Procedure Category Date Status Time Discharge DISCHARGE 10/04/24 Transmitted 09:21 Nutritional PHA 10/04/24 In Process Supplements (Jevity 14:00 Risperidone Tablet PHA 10/04/24 In Process (Risperdal Tablet) 22:00 Chest Xray 1 View XY 10/05/24 Resulted 07:46 * Wound Consult CONS 10/05/24 Transmitted Date of Service: Oct 05, 2024 Billing Provider: ZUHAIR GUILLROY NP Common Visit Codes: [id number] CARE 30-74 MIN ZUHAIR GUILLORY NP Oct 05, 2024 08:50
[2024-10-05] MEDS: Jevity 1.2 Cal/Fiber 1 Liter GT SCH (18:00)
--- NOTE | 2024-10-05 23:15 | DVHPN2 ---
Progress Note - Dictate Date Seen: Oct 05, 2024 Medical Necessity Reason Pt with a Central, PICC or Fol: Yes The following are medically ne: Teague Catheter Reason for teague catheter: Strict I&O Subjective Patient seen and examined at bedside. Sedated, on mechanical ventilator. s/p trach Overnight events reviewed. vital signs Vital Sign Date Time Temp Pulse Resp B/P (MAP) Pulse Ox O2 Delivery O2 Flow Rate FiO2 10/05/24 23:00 99.1 88 20 97/47 (64) 97 210.4 10/05/24 22:34 45 10/05/24 22:00 Mechanical Ventilator+ Total Intake and Output 10/04/24 10/04/24 10/05/24 15:00 23:00 07:00 Intake Total 325.684 ml 878.770 ml 1202.400 ml Output Total 1900 ml 525 ml Balance 325.684 ml -1021.230 ml 677.400 ml medications Current Medications Medications Dose Ordered Sig/Felicitas Route Start Time Stop Time Status Last Admin Dose Admin Ondansetron HCl 4 mg Q4HP PRN IV 09/01/24 10:30 Nitroglycerin 0.4 mg Q5MINP PRN SL 09/01/24 10:30 Piperacillin Sod/ Tazobactam Sod 100 ml @ 25 mls/hr Q6HR IV 09/01/24 18:00 UNV Acetaminophen 650 mg Q6HP PRN PO 09/09/24 10:45 10/04/24 21:46 650 MG Diagnostic Test (Pha) 1 strip Q6HR 09/10/24 12:00 10/05/24 18:27 1 STRIP Dextrose 50 ml UD PRN IV 09/10/24 08:15 Cancel Ipratropium [place] 0.5 mg Q6HR NEB 09/13/24 12:00 10/05/24 18:07 0.5 MG Levalbuterol HCl 1.25 mg Q6HR NEB 09/13/24 12:00 10/05/24 18:07 1.25 MG Lorazepam 0.5 mg Q8HP PRN IV 09/15/24 13:15 09/15/24 20:27 0.5 MG Midazolam HCl 50 ml @ 1 mls/hr Q24H IV 09/16/24 09:00 10/05/24 21:06 4 MLS/HR Fentanyl Citrate 250 ml @ 2.5 mls/hr Q24H IV 09/16/24 09:00 10/05/24 11:48 17.5 MLS/HR Norepinephrine Bitartrate 32 mg/ Sodium Chloride 250 ml @ 0.938 mls/ hr Q24H IV 09/16/24 17:45 10/05/24 17:47 0.938 MLS/HR Acetylcysteine 100 mg Q6HR NEB 09/17/24 12:00 10/05/24 18:08 100 MG Sodium Chloride 10 ml QSHIFT@10,22 IV 09/23/24 22:00 10/05/24 21:45 10 ML Lactulose 30 ml BID GT 09/24/24 10:00 10/05/24 21:45 30 ML Doxycycline Hyclate 100 ml @ 50 mls/hr Q12HR IV 09/27/24 09:15 10/05/24 21:45 50 MLS/HR Purified Water 100 ml Q6HR GT 09/28/24 12:00 10/05/24 18:28 100 ML Insulin Glargine 12 units DAILY@1000 SC 09/28/24 10:00 10/05/24 09:52 12 UNITS Insulin Human Regular Q6HR SC 09/28/24 12:00 10/04/24 18:17 2 UNITS Dextrose 50 ml UD PRN IV 09/28/24 09:00 Glycopyrrolate 0.2 mg Q12HP IV 09/28/24 10:00 10/05/24 21:45 0.2 MG Metoclopramide HCl 5 mg Q8HP PRN GT 09/29/24 07:30 Propofol 100 ml @ 3.768 mls/ hr Q24H IV 10/03/24 12:00 10/05/24 21:05 18.84 MLS/HR Enteral Nutritional Formula 1,000 ml 50ML/HR GT 10/04/24 14:00 10/05/24 18:00 1,000 ML Risperidone 2 mg BID PO 10/04/24 22:00 10/05/24 21:45 2 MG objective Gen.: Patient lying in bed in medical ICU. Sedated, on mechanical ventilator. S/p Trach Head: Normocephalic, atraumatic. Eyes: PERRLA. Ears: Normal external anatomy. Throat: Endotracheal tube and orogastric tube in place. Neck: Trach in place. Chest: Transmitted breath sounds bilaterally. Decreased air entry bilaterally. No wheezing. Bibasilar crackles. Cardiovascular: Positive S1, positive S2. Regular rate and rhythm. Abdomen: Positive bowel sounds in all 4 quadrants. Soft, nontender, nondistended. : Teague in place. Normal external genitalia. Rectal: Deferred. Skin: Warm, dry. Intact. Extremities: 2+ radial pulses bilaterally. No lower extremity edema. Neuro: Sedated. laboratory and microbiology Laboratory Tests 10/04/24 03:28 Test 10/04/24 03:28 Range/Units Serum Glucose 115 H 74-106 mg/dL Assessment/Plan Impression: Acute hypoxic respiratory failure Acute hypercarbic respiratory failure On mechanical ventilator Pleural effusions Atelectasis Morbid obesity with a BMI of 44.8 Pulmonary edema Acute exacerbation of COPD vs Asthma Elevated troponin Events: Remains on vent support On AC mode with RR 20, VT 500, PEEP 8, FIO2 45% S/p trach Trach care Sedated on Propofol, Versed/Fentanyl Pressors for hemodynamic support. On Levophed 2 mcg/min Titrate to keep MAP above 65 mmHg/SBP above 90 mmHg. Continue bronchodilators Continue antibiotics Monitor WBC Tube feeds via NGT for nutritional support Pt with apneic episodes Continue SBT/LAINE Recommend transfer to LTAC for ongoing liberation from mechanical ventilator. 09/24/24 - S/p therapeutic bronchoscopy with clearing of secretions/mucous plugging from L1-L3 and R1-R3 and R6-R10. 09/18/24 - S/p therapeutic bronchoscopy w/ RLL BAL. Mucous plugging cleared from L1-L3 and L6-L10 and R1-R3 and R6-R10 See separate procedure note for details 09/16/24 - S/p bronchoscopy w/ bronchoalveolar lavage, removed copious mucous plugs from RUL/RLL + FROYLAN. See separate procedure note for details. Labs and imaging reviewed. Rest of plan as noted below. Plan: s/p intubation, on mechanical ventilator On AC mode with RR 20, VT 500, PEEP 8, FIO2 45% Taper FiO2 as tolerated S/p trach Trach care Sedated for vent synchrony Bronchodilators Steroids - completed Pressors for hemodynamic support. Titrate to keep MAP above 65 mmHg/SBP above 90 mmHg. F/u Echo to evaluate LVEF, RVSP and r/o valvular dysfunction. Cardiology recommendations appreciated Antibiotics F/u cultures. Monitor renal function due to Acute kidney injury. Monitor electrolytes. Supplement as necessary. Nutritional support. Accu-Cheks, ISS. Morbid obesity, complicates all care. Diet and lifestyle modifications for weight reduction recommended. GI/DVT prophylaxis. Condition: Critical Prognosis: Poor given multiple comorbidities. Rest of plan per hospitalist and other consultants. A total of 35 minutes of critical care time was spent reviewing the patient record, examining the patient, making a diagnostic and therapeutic plan, discussing this plan with the medical personnel, following up on diagnostic studies and following the patient for clinical stability excluding any and all procedures. At least 50% of this time was spent in direct, [id number] contact. Thank you ANAHI Montoya for allowing me to participate in this patient's care. Further recommendations will depend on patient's clinical course. Please do not hesitate to contact me if you have any questions or concerns. This medical document was created using an electronic medical record system with [employer] dictation system. Although this document has been carefully reviewed, there may still be some phonetic and typographical errors. These areas are purely typographical due to imperfections of the software programs, and do not reflect any compromise in the patient's medical care. Dietary Evaluation Review Recommendations by RD: Increase Calorie Intake Comments: 1. Increase TF as tolerated to goal rate to 50 mL/hr.Goal rate will provide ~ 87 daily estimated energy needs and ~60% daily estimated protein needs. 2. Advance to CCHO 60g diet pending [facility] [employer] approval when medically feasible. 3. Continue to monitor patient's weight and labs. Expected Outcomes/Goals: 1. labs to improve 2. diet to advance 3. continue plan of care 4. f/u in 2-3 days Plan discussed with: Other (FERNANDO Dawn) Critical Care Time(min): 35 LIZ GUDINO MD Oct 05, 2024 23:15
[2024-10-06] VITALS (108 sets, daily range): BP systolic 90–134; BP diastolic 46–80; PULSE 64–122; RESP 19–22; TEMP 98.4–99.5; O2SAT 93–100
--- NOTE | 2024-10-06 04:53 | DVH ---
CHEST RADIOGRAPH Indication: respiratory failure Technique: Single frontal view of the chest was obtained Comparison: XY CHEST XRAY 1 VIEW on DOS: 10/05/24 FINDINGS: Lines and Tubes: There is a tracheostomy tube in place. The enteric tube courses below the left hemid iaphragm and the tip extends outside the field of view. Right PICC terminates in the superior vena ca va Lungs: Bilateral consolidations. Pleura: No effusion. No pneumothorax. Cardiomediastinal contours: Unremarkable Bones: No acute osseous abnormality. IMPRESSION: 1. Stable position of the support lines and tubes. 2. Bilateral consolidation similar to prior study.
--- NOTE | 2024-10-06 09:16 | DVHPN2 ---
Subjective Intubated and chemically sedated. Reviewed: Care Plan, H&P, Labs, Medications, Previous Orders, Radiology, Other (Consultations) Changes from previous H/P or p: No Changes Objective Vitals Vital Signs Date Time Temp Pulse Resp B/P (MAP) Pulse Ox O2 Delivery O2 Flow Rate FiO2 10/06/24 09:00 99.1 90 20 107/54 (71) 98 210.4 10/06/24 08:00 45 10/06/24 08:00 Mechanical Ventilator+ Intake/Output Intake and Output 10/06/24 07:00 Intake Total 1891.894 ml Output Total 725 ml Balance 1166.894 ml Intake Oral 320 ml IV Total 1099.894 ml Tube Feeding 472 ml Output Urine Total 725 ml # Bowel Movements 1 General Appearance: Other (Intubated and Sedated) HEENT: Atraumatic, PERRLA, Other (Tracheostomy in place with no drainage/discharge/bleeding) Neck: Other (Trach) Lungs: Other (Mechanical ventilation sounds) Cardiovascular: Regular rate, Normal S1, Normal S2 Abdomen: Normal bowel sounds, Soft Genitourinary: Other (Spence's catheter) Musculoskeletal: Weak motor strength RUE, Weak motor strength LUE Extremities: Other (1+ bilateral lower extremities edema) Neuro: Other (Sedated) Skin: Dry, Intact Psych/Mental Status: Other (Sedated) Medications Current Medications Medications Dose Ordered Sig/Felicitas Route Start Time Stop Time Status Last Admin Dose Admin Ondansetron HCl 4 mg Q4HP PRN IV 09/01/24 10:30 Nitroglycerin 0.4 mg Q5MINP PRN SL 09/01/24 10:30 Piperacillin Sod/ Tazobactam Sod 100 ml @ 25 mls/hr Q6HR IV 09/01/24 18:00 UNV Acetaminophen 650 mg Q6HP PRN PO 09/09/24 10:45 10/04/24 21:46 650 MG Diagnostic Test (Pha) 1 strip Q6HR 09/10/24 12:00 10/06/24 05:50 1 STRIP Dextrose 50 ml UD PRN IV 09/10/24 08:15 Cancel Ipratropium [place] 0.5 mg Q6HR NEB 09/13/24 12:00 10/06/24 06:05 0.5 MG Levalbuterol HCl 1.25 mg Q6HR NEB 09/13/24 12:00 10/06/24 06:05 1.25 MG Lorazepam 0.5 mg Q8HP PRN IV 09/15/24 13:15 09/15/24 20:27 0.5 MG Midazolam HCl 50 ml @ 1 mls/hr Q24H IV 09/16/24 09:00 10/05/24 21:06 4 MLS/HR Fentanyl Citrate 250 ml @ 2.5 mls/hr Q24H IV 09/16/24 09:00 10/06/24 04:03 17.5 MLS/HR Norepinephrine Bitartrate 32 mg/ Sodium Chloride 250 ml @ 0.938 mls/ hr Q24H IV 09/16/24 17:45 10/05/24 17:47 0.938 MLS/HR Acetylcysteine 100 mg Q6HR NEB 09/17/24 12:00 10/06/24 06:05 100 MG Sodium Chloride 10 ml QSHIFT@10, IV 09/23/24 22:00 10/05/24 21:45 10 ML Lactulose 30 ml BID GT 09/24/24 10:00 10/05/24 21:45 30 ML Doxycycline Hyclate 100 ml @ 50 mls/hr Q12HR IV 09/27/24 09:15 10/05/24 21:45 50 MLS/HR Purified Water 100 ml Q6HR GT 09/28/24 12:00 10/06/24 05:48 100 ML Insulin Glargine 12 units DAILY@1000 SC 09/28/24 10:00 10/05/24 09:52 12 UNITS Insulin Human Regular Q6HR SC 09/28/24 12:00 10/04/24 18:17 2 UNITS Dextrose 50 ml UD PRN IV 09/28/24 09:00 Glycopyrrolate 0.2 mg Q12HP IV 09/28/24 10:00 10/05/24 21:45 0.2 MG Metoclopramide HCl 5 mg Q8HP PRN GT 09/29/24 07:30 Propofol 100 ml @ 3.768 mls/ hr Q24H IV 10/03/24 12:00 10/06/24 06:26 18.84 MLS/HR Enteral Nutritional Formula 1,000 ml 50ML/HR GT 10/04/24 14:00 10/05/24 18:00 1,000 ML Risperidone 2 mg BID PO 10/04/24 22:00 10/05/24 21:45 2 MG Laboratory Results Laboratory Tests 10/04/24 03:28 Blood Gas Results Test 10/06/24 07:31 Arterial Blood pH 7.433 (7.350-7.450) FiO2 % 45.0 Microbiology Microbiology Date/Time Source Procedure Growth Status 09/27/24 08:20 Sputum Gram Stain - Final Complete 09/27/24 08:20 Respiratory Culture - Final Methicillin Resistant S.aureus Complete 09/26/24 15:13 Urine - [place] Urine Culture - Final Complete 09/26/24 13:06 Blood Blood Culture - Final NO GROWTH AFTER 5 DAYS OF INCUBATION. Complete 09/16/24 15:13 Other Endotracheal Wash Gram Stain - Final Complete 09/16/24 15:13 Respiratory Culture - Final Methicillin Resistant S.aureus Complete Labs and/or images reviewed: Labs reviewed by me, Image(s) reviewed by me Assessment/Plan Assessment/Plan Impression: -acute hypoxic and hypercarbic respiratory failure with failure of noninvasive positive pressure ventilation -community-acquired pneumonia, MRSA -morbid obesity -nicotine dependence -sepsis -history of schizophrenia -NSTEMI type 2 -Tracheostomy Plan: Events: Awaiting for transfer to LTACH -Wean pressors. -continue tube feeding -Continue Bowel Regimen -continue regular insulin sliding scale, Lantus 12 units daily -pulmonology consultation: Recommendations reviewed -Continue doxy. -Solu-Medrol to 40 mg daily -continue DVT prophylaxis -PUD prophylaxis -continue bronchodilators, Pulmicort, Mucomyst -repeat labs in am Critical care time spent with patient discussing and formulating plan of care: 40 minutes. This does not include time spent performing procedures. This medical document was created using an electronic medical record system with [employer] dictation system. Although this document has been carefully reviewed, there may still be some phonetic and typographical errors. These areas are purely typographical due to imperfections of the software programs, and do not reflect any compromise in the patient's medical care. Plan discussed with: Patient, Other (RN) My Orders Orders - ZUHAIR GUILLORY NP Procedure Category Date Status Time Basic Metabolic Panel LAB 10/07/24 Verified 04:00 Complete Blood Count LAB 10/07/24 Verified 04:00 Date of Service: Oct 06, 2024 Billing Provider: ZUHAIR GUILLORY NP Common Visit Codes: [id number] CARE 30-74 MIN ZUHAIR GUILLORY NP Oct 06, 2024 09:15
--- NOTE | 2024-10-06 12:22 | MEDREC ---
[facility] Intervention Section I [facility] Intervention: Review courses of therapy (10 DAYS ON DOXYCYCLINE - PLEASE REVIEW THE NEED FOR ANTIBIOTIC IN THIS PATIENT) MARY CARMEN PHARMACIST Oct 06, 2024 12:22
--- NOTE | 2024-10-06 23:41 | DVHPN2 ---
Progress Note - Dictate Date Seen: Oct 06, 2024 Medical Necessity Reason Pt with a Central, PICC or Fol: Yes The following are medically ne: Teague Catheter Reason for teague catheter: Strict I&O Subjective Patient seen and examined at bedside. Sedated, on mechanical ventilator. s/p trach Overnight events reviewed. vital signs Vital Sign Date Time Temp Pulse Resp B/P (MAP) Pulse Ox O2 Delivery O2 Flow Rate FiO2 10/06/24 23:11 68 20 99/54 (69) 98 40 10/06/24 23:00 98.6 209.5 10/06/24 22:00 Mechanical Ventilator+ Total Intake and Output 10/05/24 10/05/24 10/06/24 15:00 23:00 07:00 Intake Total 359.080 ml 410.590 ml 1122.224 ml Output Total 350 ml 375 ml Balance 359.080 ml 60.590 ml 747.224 ml medications Current Medications Medications Dose Ordered Sig/Felicitas Route Start Time Stop Time Status Last Admin Dose Admin Ondansetron HCl 4 mg Q4HP PRN IV 09/01/24 10:30 Nitroglycerin 0.4 mg Q5MINP PRN SL 09/01/24 10:30 Piperacillin Sod/ Tazobactam Sod 100 ml @ 25 mls/hr Q6HR IV 09/01/24 18:00 UNV Acetaminophen 650 mg Q6HP PRN PO 09/09/24 10:45 10/04/24 21:46 650 MG Diagnostic Test (Pha) 1 strip Q6HR 09/10/24 12:00 10/06/24 18:22 1 STRIP Dextrose 50 ml UD PRN IV 09/10/24 08:15 Cancel Ipratropium [place] 0.5 mg Q6HR NEB 09/13/24 12:00 10/06/24 23:11 0.5 MG Levalbuterol HCl 1.25 mg Q6HR NEB 09/13/24 12:00 10/06/24 23:11 1.25 MG Lorazepam 0.5 mg Q8HP PRN IV 09/15/24 13:15 09/15/24 20:27 0.5 MG Midazolam HCl 50 ml @ 1 mls/hr Q24H IV 09/16/24 09:00 10/06/24 11:41 4 MLS/HR Fentanyl Citrate 250 ml @ 2.5 mls/hr Q24H IV 09/16/24 09:00 10/06/24 15:44 17.5 MLS/HR Norepinephrine Bitartrate 32 mg/ Sodium Chloride 250 ml @ 0.938 mls/ hr Q24H IV 09/16/24 17:45 10/06/24 18:22 0.938 MLS/HR Acetylcysteine 100 mg Q6HR NEB 09/17/24 12:00 10/06/24 23:11 100 MG Sodium Chloride 10 ml QSHIFT@10,22 IV 09/23/24 22:00 10/06/24 21:31 10 ML Lactulose 30 ml BID GT 09/24/24 10:00 10/06/24 09:49 30 ML Doxycycline Hyclate 100 ml @ 50 mls/hr Q12HR IV 09/27/24 09:15 10/06/24 21:31 50 MLS/HR Purified Water 100 ml Q6HR GT 09/28/24 12:00 10/06/24 18:22 100 ML Insulin Glargine 12 units DAILY@1000 SC 09/28/24 10:00 10/06/24 10:05 12 UNITS Insulin Human Regular Q6HR SC 09/28/24 12:00 10/04/24 18:17 2 UNITS Dextrose 50 ml UD PRN IV 09/28/24 09:00 Glycopyrrolate 0.2 mg Q12HP IV 09/28/24 10:00 10/06/24 21:31 0.2 MG Metoclopramide HCl 5 mg Q8HP PRN GT 09/29/24 07:30 Propofol 100 ml @ 3.768 mls/ hr Q24H IV 10/03/24 12:00 10/06/24 19:16 18.84 MLS/HR Enteral Nutritional Formula 1,000 ml 50ML/HR GT 10/04/24 14:00 10/06/24 21:31 1,000 ML Risperidone 2 mg BID PO 10/04/24 22:00 10/06/24 21:32 2 MG objective Gen.: Patient lying in bed in medical ICU. Sedated, on mechanical ventilator. S/p Trach Head: Normocephalic, atraumatic. Eyes: PERRLA. Ears: Normal external anatomy. Throat: Endotracheal tube and orogastric tube in place. Neck: Trach in place. Chest: Transmitted breath sounds bilaterally. Decreased air entry bilaterally. No wheezing. Bibasilar crackles. Cardiovascular: Positive S1, positive S2. Regular rate and rhythm. Abdomen: Positive bowel sounds in all 4 quadrants. Soft, nontender, nondistended. : Teague in place. Normal external genitalia. Rectal: Deferred. Skin: Warm, dry. Intact. Extremities: 2+ radial pulses bilaterally. No lower extremity edema. Neuro: Sedated. laboratory and microbiology Laboratory Tests 10/04/24 03:28 Test 10/04/24 03:28 Range/Units Serum Glucose 115 H 74-106 mg/dL Assessment/Plan Impression: Acute hypoxic respiratory failure Acute hypercarbic respiratory failure On mechanical ventilator Pleural effusions Atelectasis Morbid obesity with a BMI of 44.8 Pulmonary edema Acute exacerbation of COPD vs Asthma Elevated troponin Events: Remains on vent support On AC mode with RR 20, VT 500, PEEP 8, FIO2 45% S/p trach Trach care Sedated on Propofol, Versed 4 mg/hr, Fentanyl 175 mcg/hr Pressors for hemodynamic support. On Levophed 2 mcg/min Titrate to keep MAP above 65 mmHg/SBP above 90 mmHg. Continue bronchodilators Continue antibiotics Monitor WBC Tube feeds via NGT for nutritional support Pt is not tolerating taper of sedation Continue SBT/LAINE Recommend transfer to LTAC for ongoing liberation from mechanical ventilator. 09/24/24 - S/p therapeutic bronchoscopy with clearing of secretions/mucous plugging from L1-L3 and R1-R3 and R6-R10. 09/18/24 - S/p therapeutic bronchoscopy w/ RLL BAL. Mucous plugging cleared from L1-L3 and L6-L10 and R1-R3 and R6-R10 See separate procedure note for details 09/16/24 - S/p bronchoscopy w/ bronchoalveolar lavage, removed copious mucous plugs from RUL/RLL + FROYLAN. See separate procedure note for details. Labs and imaging reviewed. Rest of plan as noted below. Plan: s/p intubation, on mechanical ventilator On AC mode with RR 20, VT 500, PEEP 8, FIO2 45% Taper FiO2 as tolerated S/p trach Trach care Sedated for vent synchrony Bronchodilators Steroids - completed Pressors for hemodynamic support. Titrate to keep MAP above 65 mmHg/SBP above 90 mmHg. F/u Echo to evaluate LVEF, RVSP and r/o valvular dysfunction. Cardiology recommendations appreciated Antibiotics F/u cultures. Monitor renal function due to Acute kidney injury. Monitor electrolytes. Supplement as necessary. Nutritional support. Accu-Cheks, ISS. Morbid obesity, complicates all care. Diet and lifestyle modifications for weight reduction recommended. GI/DVT prophylaxis. Condition: Critical Prognosis: Poor given multiple comorbidities. Rest of plan per hospitalist and other consultants. A total of 35 minutes of critical care time was spent reviewing the patient record, examining the patient, making a diagnostic and therapeutic plan, discussing this plan with the medical personnel, following up on diagnostic studies and following the patient for clinical stability excluding any and all procedures. At least 50% of this time was spent in direct, [id number] contact. Thank you ANAHI Montoya for allowing me to participate in this patient's care. Further recommendations will depend on patient's clinical course. Please do not hesitate to contact me if you have any questions or concerns. This medical document was created using an electronic medical record system with [employer] dictation system. Although this document has been carefully reviewed, there may still be some phonetic and typographical errors. These areas are purely typographical due to imperfections of the software programs, and do not reflect any compromise in the patient's medical care. Dietary Evaluation Review Recommendations by RD: Increase Calorie Intake Comments: 1. Increase TF as tolerated to goal rate to 50 mL/hr.Goal rate will provide ~ 87 daily estimated energy needs and ~60% daily estimated protein needs. 2. Advance to CCHO 60g diet pending [employer] approval when medically feasible. 3. Continue to monitor patient's weight and labs. Expected Outcomes/Goals: 1. labs to improve 2. diet to advance 3. continue plan of care 4. f/u in 2-3 days Plan discussed with: Other (FERNANDO Oleary) Critical Care Time(min): 35 LIZ GUDINO MD Oct 06, 2024 23:41
[2024-10-07] VITALS (109 sets, daily range): BP systolic 89–134; BP diastolic 47–82; PULSE 40–103; RESP 10–24; TEMP 98.1–99.9; O2SAT 90–100
[2024-10-07 03:38] LABS: Basophils # (auto) 0.1 10 ^3/uL (0-0.2); Basophils % (auto) 0.6 % (0.0-2.0); Eosinophils # (auto) 0.2 10 ^3/uL (0-0.8); Eosinophils % (auto) 1.8 % (0.0-7.0); Hemoglobin 11.4 g/dL (13.5-17.5); Lymphocytes # (auto) 2.4 10 ^3/uL (0.4-5.4); Lymphocytes % (auto) 27.6 % (10.0-50.0); Mean Corpuscular Hemoglobin 30.3 pg (28.0-32.0); Mean Corpuscular Hgb Conc. 32.7 g/dL (32.0-36.0); Mean Corpuscular Volume 92.7 fL (80.0-100.0); Monocytes # (auto) 0.8 10 ^3/uL (0-1.3); Monocytes % (auto) 9.1 % (0.0-12.0); Neutrophils # (auto) 5.3 10 ^3/uL (1.6-8.6); Neutrophils % (auto) 60.9 % (37.0-80.0); Nucleated Red Blood Cells % 0.1 %; Platelet Count (auto) 272 10^3/uL (140-450); Red Blood Cells 3.77 10^6/uL (4.5-5.90); Red Cell Distribution Width 13.5 % (11.8-14.3); White Blood Cell 8.7 10^3/uL (4.4-10.8)
[2024-10-07 03:40] LABS: Chloride 105 mmol/L (98-107); Sodium 138 mmol/L (136-145)
[2024-10-07 03:41] LABS: Anion Gap 11 (5-15); Calcium 9.5 mg/dL (8.7-10.4); Carbon Dioxide 22 mmol/L (20-31)
[2024-10-07 03:46] LABS: BUN/Creatinine Ratio 10.2 (10.0-20.0)
[2024-10-07 03:56] LABS: Blood Urea Nitrogen 6 mg/dL (9-23); Glucose 116 mg/dL (74-106); Potassium 3.4 mmol/L (3.5-5.1)
[2024-10-07 07:14] LABS: Base Excess 1.1 mmol/L (-2.0-3.0)
--- NOTE | 2024-10-07 08:34 | DVHPN2 ---
Subjective Intubated and chemically sedated. Reviewed: Care Plan, H&P, Labs, Medications, Previous Orders, Radiology, Other (Consultations) Changes from previous H/P or p: No Changes Objective Vitals Vital Signs Date Time Temp Pulse Resp B/P (MAP) Pulse Ox O2 Delivery O2 Flow Rate FiO2 10/07/24 07:29 86 20 108/56 (73) 100 40 10/07/24 06:45 99.1 210.4 10/07/24 06:00 Mechanical Ventilator+ Intake/Output Intake and Output 10/07/24 07:00 Intake Total 2337.384 ml Output Total 825 ml Balance 1512.384 ml Intake Oral 280 ml IV Total 1104.384 ml Tube Feeding 953 ml Output Urine Total 825 ml # Bowel Movements 2 General Appearance: Other (Intubated and Sedated) HEENT: Atraumatic, PERRLA, Other (Tracheostomy in place with no drainage/discharge/bleeding) Neck: Other (Trach) Lungs: Other (Mechanical ventilation sounds) Cardiovascular: Regular rate, Normal S1, Normal S2 Abdomen: Normal bowel sounds, Soft Genitourinary: Other (Spence's catheter) Musculoskeletal: Weak motor strength RUE, Weak motor strength LUE Extremities: Other (1+ bilateral lower extremities edema) Neuro: Other (Sedated) Skin: Dry, Intact Psych/Mental Status: Other (Sedated) Medications Current Medications Medications Dose Ordered Sig/Felicitas Route Start Time Stop Time Status Last Admin Dose Admin Ondansetron HCl 4 mg Q4HP PRN IV 09/01/24 10:30 Nitroglycerin 0.4 mg Q5MINP PRN SL 09/01/24 10:30 Piperacillin Sod/ Tazobactam Sod 100 ml @ 25 mls/hr Q6HR IV 09/01/24 18:00 UNV Acetaminophen 650 mg Q6HP PRN PO 09/09/24 10:45 10/04/24 21:46 650 MG Diagnostic Test (Pha) 1 strip Q6HR 09/10/24 12:00 10/07/24 06:13 1 STRIP Dextrose 50 ml UD PRN IV 09/10/24 08:15 Cancel Ipratropium [place] 0.5 mg Q6HR NEB 09/13/24 12:00 10/07/24 05:35 0.5 MG Levalbuterol HCl 1.25 mg Q6HR NEB 09/13/24 12:00 10/07/24 05:35 1.25 MG Lorazepam 0.5 mg Q8HP PRN IV 09/15/24 13:15 09/15/24 20:27 0.5 MG Midazolam HCl 50 ml @ 1 mls/hr Q24H IV 09/16/24 09:00 10/06/24 23:52 4 MLS/HR Fentanyl Citrate 250 ml @ 2.5 mls/hr Q24H IV 09/16/24 09:00 10/07/24 04:53 17.5 MLS/HR Norepinephrine Bitartrate 32 mg/ Sodium Chloride 250 ml @ 0.938 mls/ hr Q24H IV 09/16/24 17:45 10/06/24 18:22 0.938 MLS/HR Acetylcysteine 100 mg Q6HR NEB 09/17/24 12:00 10/07/24 05:35 100 MG Sodium Chloride 10 ml QSHIFT@10,22 IV 09/23/24 22:00 10/06/24 21:31 10 ML Lactulose 30 ml BID GT 09/24/24 10:00 10/06/24 09:49 30 ML Doxycycline Hyclate 100 ml @ 50 mls/hr Q12HR IV 09/27/24 09:15 10/06/24 21:31 50 MLS/HR Purified Water 100 ml Q6HR GT 09/28/24 12:00 10/07/24 06:13 100 ML Insulin Glargine 12 units DAILY@1000 SC 09/28/24 10:00 10/06/24 10:05 12 UNITS Insulin Human Regular Q6HR SC 09/28/24 12:00 10/04/24 18:17 2 UNITS Dextrose 50 ml UD PRN IV 09/28/24 09:00 Glycopyrrolate 0.2 mg Q12HP IV 09/28/24 10:00 10/06/24 21:31 0.2 MG Metoclopramide HCl 5 mg Q8HP PRN GT 09/29/24 07:30 Propofol 100 ml @ 3.768 mls/ hr Q24H IV 10/03/24 12:00 10/07/24 04:54 18.84 MLS/HR Enteral Nutritional Formula 1,000 ml 50ML/HR GT 10/04/24 14:00 10/06/24 21:31 1,000 ML Risperidone 2 mg BID PO 10/04/24 22:00 10/06/24 21:32 2 MG Laboratory Results Laboratory Tests 10/07/24 03:04 Chemistry Test 10/07/24 03:04 Calcium Level 9.5 mg/dL (8.7-10.4) Blood Gas Results Test 10/07/24 06:59 Arterial Blood pH 7.464 (7.350-7.450) FiO2 % 40.0 Microbiology Microbiology Date/Time Source Procedure Growth Status 09/27/24 08:20 Sputum Gram Stain - Final Complete 09/27/24 08:20 Respiratory Culture - Final Methicillin Resistant S.aureus Complete 09/26/24 15:13 Urine - [place] Urine Culture - Final Complete 09/26/24 13:06 Blood Blood Culture - Final NO GROWTH AFTER 5 DAYS OF INCUBATION. Complete 09/16/24 15:13 Other Endotracheal Wash Gram Stain - Final Complete 09/16/24 15:13 Respiratory Culture - Final Methicillin Resistant S.aureus Complete Labs and/or images reviewed: Labs reviewed by me, Image(s) reviewed by me Assessment/Plan Assessment/Plan Impression: -acute hypoxic and hypercarbic respiratory failure with failure of noninvasive positive pressure ventilation -community-acquired pneumonia, MRSA -morbid obesity -nicotine dependence -sepsis -history of schizophrenia -NSTEMI type 2 -Tracheostomy -septic shock -diabetes mellitus Plan: Events: Awaiting for transfer to LTACH -Wean pressors. -continue tube feeding -Continue Bowel Regimen -continue regular insulin sliding scale, Lantus 12 units daily -pulmonology consultation: Recommendations reviewed -Continue doxy. -Solu-Medrol to 40 mg daily taper off -continue DVT prophylaxis -PUD prophylaxis -continue bronchodilators, Pulmicort, Mucomyst Critical care time spent with patient discussing and formulating plan of care: 40 minutes. This does not include time spent performing procedures. This medical document was created using an electronic medical record system with [employer] system. Although this document has been carefully reviewed, there may still be some phonetic and typographical errors. These areas are purely typographical due to imperfections of the software programs, and do not reflect any compromise in the patient's medical care. Plan discussed with: Patient, Other (RN) My Orders Orders - ZUHAIR GUILLORY ONLINE CONTENT DEVELOPER Procedure Category Date Status Time Ventilator Orders RT 10/07/24 Transmitted 07:11 Date of Service: Oct 07, 2024 Billing Provider: ZUHAIR GUILLORY NP Common Visit Codes: [id number] CARE 30-74 MIN ZUHAIR GUILLORY NP Oct 07, 2024 08:34
[2024-10-07] MEDS: POTASSIUM EFFERVESENT TAB 25 MEQ GT ONE (09:43)
--- NOTE | 2024-10-07 23:05 | DVHPN2 ---
Progress Note - Dictate Date Seen: Oct 07, 2024 Medical Necessity Reason Pt with a Central, PICC or Fol: Yes The following are medically ne: Teague Catheter Reason for teague catheter: Strict I&O Subjective Patient seen and examined at bedside. Sedated, on mechanical ventilator. s/p trach Overnight events reviewed. vital signs Vital Sign Date Time Temp Pulse Resp B/P (MAP) Pulse Ox O2 Delivery O2 Flow Rate FiO2 10/07/24 22:02 74 20 95/50 (65) 97 40 10/07/24 20:00 Mechanical Ventilator+ 10/07/24 19:00 99.5 211.1 Total Intake and Output 10/06/24 10/06/24 10/07/24 15:00 23:00 07:00 Intake Total 385.214 ml 801.224 ml 1192.224 ml Output Total 375 ml 450 ml Balance 385.214 ml 426.224 ml 742.224 ml medications Current Medications Medications Dose Ordered Sig/Felicitas Route Start Time Stop Time Status Last Admin Dose Admin Ondansetron HCl 4 mg Q4HP PRN IV 09/01/24 10:30 Nitroglycerin 0.4 mg Q5MINP PRN SL 09/01/24 10:30 Piperacillin Sod/ Tazobactam Sod 100 ml @ 25 mls/hr Q6HR IV 09/01/24 18:00 UNV Acetaminophen 650 mg Q6HP PRN PO 09/09/24 10:45 10/04/24 21:46 650 MG Diagnostic Test (Pha) 1 strip Q6HR 09/10/24 12:00 10/07/24 17:26 1 STRIP Dextrose 50 ml UD PRN IV 09/10/24 08:15 Cancel Ipratropium [place] 0.5 mg Q6HR NEB 09/13/24 12:00 10/07/24 18:51 0.5 MG Levalbuterol HCl 1.25 mg Q6HR NEB 09/13/24 12:00 10/07/24 18:51 1.25 MG Lorazepam 0.5 mg Q8HP PRN IV 09/15/24 13:15 09/15/24 20:27 0.5 MG Midazolam HCl 50 ml @ 1 mls/hr Q24H IV 09/16/24 09:00 10/07/24 22:47 4 MLS/HR Fentanyl Citrate 250 ml @ 2.5 mls/hr Q24H IV 09/16/24 09:00 10/07/24 17:13 17.5 MLS/HR Norepinephrine Bitartrate 32 mg/ Sodium Chloride 250 ml @ 0.938 mls/ hr Q24H IV 09/16/24 17:45 10/06/24 18:22 0.938 MLS/HR Sodium Chloride 10 ml QSHIFT@10,22 IV 09/23/24 22:00 10/07/24 21:22 10 ML Lactulose 30 ml BID GT 09/24/24 10:00 10/06/24 09:49 30 ML Doxycycline Hyclate 100 ml @ 50 mls/hr Q12HR IV 09/27/24 09:15 10/07/24 21:21 50 MLS/HR Purified Water 100 ml Q6HR GT 09/28/24 12:00 10/07/24 17:25 100 ML Insulin Glargine 12 units DAILY@1000 SC 09/28/24 10:00 10/07/24 09:52 12 UNITS Insulin Human Regular Q6HR SC 09/28/24 12:00 10/04/24 18:17 2 UNITS Dextrose 50 ml UD PRN IV 09/28/24 09:00 Glycopyrrolate 0.2 mg Q12HP IV 09/28/24 10:00 10/07/24 21:21 0.2 MG Metoclopramide HCl 5 mg Q8HP PRN GT 09/29/24 07:30 Propofol 100 ml @ 3.768 mls/ hr Q24H IV 10/03/24 12:00 10/07/24 19:36 18.84 MLS/HR Enteral Nutritional Formula 1,000 ml 50ML/HR GT 10/04/24 14:00 10/06/24 21:31 1,000 ML Risperidone 2 mg BID PO 10/04/24 22:00 10/07/24 21:21 2 MG objective Gen.: Patient lying in bed in medical ICU. Sedated, on mechanical ventilator. S/p Trach Head: Normocephalic, atraumatic. Eyes: PERRLA. Ears: Normal external anatomy. Throat: Endotracheal tube and orogastric tube in place. Neck: Trach in place. Chest: Transmitted breath sounds bilaterally. Decreased air entry bilaterally. No wheezing. Bibasilar crackles. Cardiovascular: Positive S1, positive S2. Regular rate and rhythm. Abdomen: Positive bowel sounds in all 4 quadrants. Soft, nontender, nondistended. : Teague in place. Normal external genitalia. Rectal: Deferred. Skin: Warm, dry. Intact. Extremities: 2+ radial pulses bilaterally. No lower extremity edema. Neuro: Sedated. laboratory and microbiology Laboratory Tests 10/07/24 03:04 Test 10/07/24 03:04 Range/Units Serum Glucose 116 H 74-106 mg/dL Assessment/Plan Impression: Acute hypoxic respiratory failure Acute hypercarbic respiratory failure On mechanical ventilator Pleural effusions Atelectasis Morbid obesity with a BMI of 44.8 Pulmonary edema Acute exacerbation of COPD vs Asthma Elevated troponin Events: Remains on vent support On AC mode with RR 20, VT 500, PEEP 8, FIO2 45% S/p trach Trach care Sedated on Propofol, Versed. Fentanyl Off Levophed, hemodynamically stable. Continue bronchodilators Continue antibiotics Monitor WBC Tube feeds via NGT for nutritional support Pt is not tolerating taper of sedation Continue daily SBT/LAINE CPAP with PS 8, PEEP of 5 OK to increase PS to max 20 cmH2O to achieve tidal volume 450-550 mL Recommend transfer to LTAC for ongoing liberation from mechanical ventilator. Remove trach sutures 7 to 10 days post trach 09/24/24 - S/p therapeutic bronchoscopy with clearing of secretions/mucous plugging from L1-L3 and R1-R3 and R6-R10. 09/18/24 - S/p therapeutic bronchoscopy w/ RLL BAL. Mucous plugging cleared from L1-L3 and L6-L10 and R1-R3 and R6-R10 See separate procedure note for details 09/16/24 - S/p bronchoscopy w/ bronchoalveolar lavage, removed copious mucous plugs from RUL/RLL + FROYLAN. See separate procedure note for details. Labs and imaging reviewed. Rest of plan as noted below. Plan: s/p intubation, on mechanical ventilator On AC mode with RR 20, VT 500, PEEP 8, FIO2 45% Taper FiO2 as tolerated S/p trach Trach care Sedated for vent synchrony Bronchodilators Steroids - completed Pressors as necessary for hemodynamic support. Titrate to keep MAP above 65 mmHg/SBP above 90 mmHg. F/u Echo to evaluate LVEF, RVSP and r/o valvular dysfunction. Cardiology recommendations appreciated Antibiotics F/u cultures. Monitor renal function due to Acute kidney injury. Monitor electrolytes. Supplement as necessary. Nutritional support. Accu-Cheks, ISS. Morbid obesity, complicates all care. Diet and lifestyle modifications for weight reduction recommended. GI/DVT prophylaxis. Condition: Critical Prognosis: Poor given multiple comorbidities. Rest of plan per hospitalist and other consultants. A total of 35 minutes of critical care time was spent reviewing the patient record, examining the patient, making a diagnostic and therapeutic plan, discussing this plan with the medical personnel, following up on diagnostic studies and following the patient for clinical stability excluding any and all procedures. At least 50% of this time was spent in direct, [id number] contact. Thank you ANAHI Montoya for allowing me to participate in this patient's care. Further recommendations will depend on patient's clinical course. Please do not hesitate to contact me if you have any questions or concerns. This medical document was created using an electronic medical record system with [employer] dictation system. Although this document has been carefully reviewed, there may still be some phonetic and typographical errors. These areas are purely typographical due to imperfections of the software programs, and do not reflect any compromise in the patient's medical care. Dietary Evaluation Review Recommendations by RD: Increase Calorie Intake Comments: 1. Increase TF as tolerated to goal rate to 50 mL/hr.Goal rate will provide ~ 87 daily estimated energy needs and ~60% daily estimated protein needs. 2. Advance to CCHO 60g diet pending GRITTING MACHINE OPERATOR approval when medically feasible. 3. Continue to monitor patient's weight and labs. Expected Outcomes/Goals: 1. labs to improve 2. diet to advance 3. continue plan of care 4. f/u in 2-3 days Plan discussed with: Other (FERNANDO Livingston) Critical Care Time(min): 35 LIZ GUDINO MD Oct 07, 2024 23:05
[2024-10-08] VITALS (107 sets, daily range): BP systolic 88–118; BP diastolic 40–69; PULSE 55–112; RESP 16–21; TEMP 76.5–100.2; O2SAT 89–100
[2024-10-08 04:08] LABS: Basophils # (auto) 0.1 10 ^3/uL (0-0.2); Basophils % (auto) 0.5 % (0.0-2.0); Eosinophils # (auto) 0.2 10 ^3/uL (0-0.8); Eosinophils % (auto) 1.7 % (0.0-7.0); Hematocrit 33.8 % (41.0-53.0); Hemoglobin 11.6 g/dL (13.5-17.5); Lymphocytes # (auto) 2.3 10 ^3/uL (0.4-5.4); Lymphocytes % (auto) 23.3 % (10.0-50.0); Mean Corpuscular Hemoglobin 31.1 pg (28.0-32.0); Mean Corpuscular Hgb Conc. 34.4 g/dL (32.0-36.0); Mean Corpuscular Volume 90.5 fL (80.0-100.0); Monocytes # (auto) 0.7 10 ^3/uL (0-1.3); Monocytes % (auto) 7.4 % (0.0-12.0); Neutrophils # (auto) 6.6 10 ^3/uL (1.6-8.6); Neutrophils % (auto) 67.1 % (37.0-80.0); Platelet Count (auto) 344 10^3/uL (140-450); Red Blood Cells 3.74 10^6/uL (4.5-5.90); Red Cell Distribution Width 13.7 % (11.8-14.3); White Blood Cell 9.8 10^3/uL (4.4-10.8)
[2024-10-08 04:13] LABS: Anion Gap 11 (5-15); Carbon Dioxide 25 mmol/L (20-31); Chloride 103 mmol/L (98-107); Potassium 3.9 mmol/L (3.5-5.1); Sodium 139 mmol/L (136-145)
[2024-10-08 04:14] LABS: Calcium 10.2 mg/dL (8.7-10.4)
[2024-10-08 04:19] LABS: BUN/Creatinine Ratio 14.3 (10.0-20.0); Blood Urea Nitrogen 8 mg/dL (9-23); Glucose 111 mg/dL (74-106)
--- NOTE | 2024-10-08 05:20 | DVH ---
EXAM: XR Chest, 1 View CLINICAL INDICATION: resp failure TECHNIQUE: Frontal view of the chest. COMPARISON: XY CHEST PORTABLE on DOS: 10/06/24, XY CHEST XRAY 1 VIEW on DOS: 10/05/24, XY CHEST XRAY 1 VIEW on DOS: 10/03/24, XY CHEST PORTABLE on DOS: 09/30/24, XY CHEST PORTABLE on DOS: 09/29/24 FINDINGS: LUNGS AND PLEURAL SPACES: Left basilar atelectasis or pneumonia. Pulmonary venous congestion. Lef t pleural effusion. No pneumothorax. HEART: Unremarkable. No cardiomegaly. MEDIASTINUM: Unremarkable. Normal mediastinal contour. BONES/JOINTS: Unremarkable. No acute fracture. TUBES, LINES AND DEVICES: Stable tubes and lines. OTHER FINDINGS: . . IMPRESSION: 1. Left basilar atelectasis or pneumonia. 2. Pulmonary venous congestion. 3. Left pleural effusion.
--- NOTE | 2024-10-08 10:04 | DVHPN2 ---
Subjective Intubated and chemically sedated. Reviewed: Care Plan, H&P, Labs, Medications, Previous Orders, Radiology, Other (Consultations) Changes from previous H/P or p: No Changes General: Per HPI Objective Vitals Vital Signs Date Time Temp Pulse Resp B/P (MAP) Pulse Ox O2 Delivery O2 Flow Rate FiO2 10/08/24 09:00 98.4 87 20 111/59 (76) 99 209.1 10/08/24 08:27 40 10/08/24 08:00 Mechanical Ventilator+ Intake/Output Intake and Output 10/08/24 07:00 Intake Total 2217.540 ml Output Total 1250 ml Balance 967.540 ml Intake Oral 490 ml IV Total 1177.540 ml Tube Feeding 550 ml Output Urine Total 1250 ml # Bowel Movements 1 General Appearance: Other (Intubated and Sedated) HEENT: Atraumatic, PERRLA, Other (Tracheostomy in place with no drainage/discharge/bleeding) Neck: Other (Trach) Lungs: Other (Mechanical ventilation sounds) Cardiovascular: Regular rate, Normal S1, Normal S2 Abdomen: Normal bowel sounds, Soft Genitourinary: Other (Spence's catheter) Musculoskeletal: Weak motor strength RUE, Weak motor strength LUE Extremities: Other (1+ bilateral lower extremities edema) Neuro: Other (Sedated) Skin: Dry, Intact Psych/Mental Status: Other (Sedated) Medications Current Medications Medications Dose Ordered Sig/Felicitas Route Start Time Stop Time Status Last Admin Dose Admin Ondansetron HCl 4 mg Q4HP PRN IV 09/01/24 10:30 Nitroglycerin 0.4 mg Q5MINP PRN SL 09/01/24 10:30 Piperacillin Sod/ Tazobactam Sod 100 ml @ 25 mls/hr Q6HR IV 09/01/24 18:00 UNV Acetaminophen 650 mg Q6HP PRN PO 09/09/24 10:45 10/04/24 21:46 650 MG Diagnostic Test (Pha) 1 strip Q6HR 09/10/24 12:00 10/08/24 05:47 1 STRIP Dextrose 50 ml UD PRN IV 09/10/24 08:15 Cancel Ipratropium [place] 0.5 mg Q6HR NEB 09/13/24 12:00 10/08/24 06:30 0.5 MG Levalbuterol HCl 1.25 mg Q6HR NEB 09/13/24 12:00 10/08/24 06:30 1.25 MG Lorazepam 0.5 mg Q8HP PRN IV 09/15/24 13:15 09/15/24 20:27 0.5 MG Midazolam HCl 50 ml @ 1 mls/hr Q24H IV 09/16/24 09:00 10/08/24 09:57 4 MLS/HR Fentanyl Citrate 250 ml @ 2.5 mls/hr Q24H IV 09/16/24 09:00 10/08/24 06:36 2.5 MLS/HR Norepinephrine Bitartrate 32 mg/ Sodium Chloride 250 ml @ 0.938 mls/ hr Q24H IV 09/16/24 17:45 10/06/24 18:22 0.938 MLS/HR Sodium Chloride 10 ml QSHIFT@10,22 IV 09/23/24 22:00 10/08/24 09:56 10 ML Lactulose 30 ml BID GT 09/24/24 10:00 10/06/24 09:49 30 ML Doxycycline Hyclate 100 ml @ 50 mls/hr Q12HR IV 09/27/24 09:15 10/08/24 09:56 50 MLS/HR Purified Water 100 ml Q6HR GT 09/28/24 12:00 10/08/24 05:47 100 ML Insulin Glargine 12 units DAILY@1000 SC 09/28/24 10:00 10/08/24 09:56 12 UNITS Insulin Human Regular Q6HR SC 09/28/24 12:00 10/04/24 18:17 2 UNITS Dextrose 50 ml UD PRN IV 09/28/24 09:00 Glycopyrrolate 0.2 mg Q12HP IV 09/28/24 10:00 10/08/24 09:56 0.2 MG Metoclopramide HCl 5 mg Q8HP PRN GT 09/29/24 07:30 Propofol 100 ml @ 3.768 mls/ hr Q24H IV 10/03/24 12:00 10/08/24 05:15 18.84 MLS/HR Enteral Nutritional Formula 1,000 ml 50ML/HR GT 10/04/24 14:00 10/08/24 05:47 1,000 ML Risperidone 2 mg BID PO 10/04/24 22:00 1/31/25 09:56 2 MG Laboratory Results Laboratory Tests 10/08/24 03:25 Chemistry Test 10/08/24 03:25 Calcium Level 10.2 mg/dL (8.7-10.4) Microbiology Microbiology Date/Time Source Procedure Growth Status 09/27/24 08:20 Sputum Gram Stain - Final Complete 09/27/24 08:20 Respiratory Culture - Final Methicillin Resistant S.aureus Complete 09/26/24 15:13 Urine - [place] Urine Culture - Final Complete 09/26/24 13:06 Blood Blood Culture - Final NO GROWTH AFTER 5 DAYS OF INCUBATION. Complete 09/16/24 15:13 Other Endotracheal Wash Gram Stain - Final Complete 09/16/24 15:13 Respiratory Culture - Final Methicillin Resistant S.aureus Complete Labs and/or images reviewed: Labs reviewed by me, Image(s) reviewed by me Assessment/Plan Assessment/Plan Impression: -acute hypoxic and hypercarbic respiratory failure with failure of noninvasive positive pressure ventilation -community-acquired pneumonia, MRSA -morbid obesity -nicotine dependence -sepsis -history of schizophrenia -NSTEMI type 2 -Tracheostomy -septic shock -diabetes mellitus Plan: Events: [facility]waiting for [facility] to [facility]. Spontaneous breathing trial performed yesterday. Attempted again today with the patient not tolerating. Repeat sputum culture. Patient may be colonized for MRSA. Start Bactroban to nares for MRSA protocol. -Wean pressors. -continue tube feeding -Continue Bowel Regimen -continue regular insulin sliding scale, Lantus 12 units daily -pulmonology consultation: Recommendations reviewed -Continue doxy. -Solu-Medrol to 40 mg daily taper off -continue DVT prophylaxis -PUD prophylaxis -continue bronchodilators, Pulmicort, Mucomyst Critical care time spent with patient discussing and formulating plan of care: 40 minutes. This does not include time spent performing procedures. This medical document was created using an electronic medical record system with [employer] dictation system. Although this document has been carefully reviewed, there may still be some phonetic and typographical errors. These areas are purely typographical due to imperfections of the software programs, and do not reflect any compromise in the patient's medical care. Plan discussed with: Patient, Other (RN) Date of Service: Oct 08, 2024 Billing Provider: ZUHAIR GUILLORY NP Common Visit Codes: [id number] CARE 30-74 MIN ZUHAIR GUILLORY NP Oct 08, 2024 10:04
[2024-10-08] MEDS: MUPIROCIN 2% OINT 15gm or 22gm FOR MRSA NARES EACHNOSTRI SCH (22:15)
--- NOTE | 2024-10-08 23:17 | DVHPN2 ---
Progress Note - Dictate Date Seen: Oct 08, 2024 Medical Necessity Reason Pt with a Central, PICC or Fol: Yes The following are medically ne: Teague Catheter Reason for teague catheter: Strict I&O Subjective Patient seen and examined at bedside. Sedated, on mechanical ventilator. s/p trach Overnight events reviewed. vital signs Vital Sign Date Time Temp Pulse Resp B/P (MAP) Pulse Ox O2 Delivery O2 Flow Rate FiO2 10/08/24 22:25 105 20 91/48 (62) 100 30 10/08/24 22:00 Mechanical Ventilator+ 10/08/24 21:30 99.9 211.8 Total Intake and Output 10/07/24 10/07/24 10/08/24 15:00 23:00 07:00 Intake Total 430.224 ml 1208.596 ml 582.72 ml Output Total 700 ml 550 ml Balance 430.224 ml 508.596 ml 32.72 ml medications Current Medications Medications Dose Ordered Sig/Felicitas Route Start Time Stop Time Status Last Admin Dose Admin Ondansetron HCl 4 mg Q4HP PRN IV 09/01/24 10:30 Nitroglycerin 0.4 mg Q5MINP PRN SL 09/01/24 10:30 Piperacillin Sod/ Tazobactam Sod 100 ml @ 25 mls/hr Q6HR IV 09/01/24 18:00 UNV Acetaminophen 650 mg Q6HP PRN PO 09/09/24 10:45 10/04/24 21:46 650 MG Diagnostic Test (Pha) 1 strip Q6HR 09/10/24 12:00 10/08/24 11:37 1 STRIP Dextrose 50 ml UD PRN IV 09/10/24 08:15 Cancel Ipratropium [place] 0.5 mg Q6HR NEB 09/13/24 12:00 10/08/24 18:27 0.5 MG Levalbuterol HCl 1.25 mg Q6HR NEB 09/13/24 12:00 10/08/24 18:27 1.25 MG Lorazepam 0.5 mg Q8HP PRN IV 09/15/24 13:15 09/15/24 20:27 0.5 MG Midazolam HCl 50 ml @ 1 mls/hr Q24H IV 09/16/24 09:00 10/08/24 20:38 4 MLS/HR Fentanyl Citrate 250 ml @ 2.5 mls/hr Q24H IV 09/16/24 09:00 10/08/24 20:27 17.5 MLS/HR Norepinephrine Bitartrate 32 mg/ Sodium Chloride 250 ml @ 0.938 mls/ hr Q24H IV 09/16/24 17:45 10/06/24 18:22 0.938 MLS/HR Sodium Chloride 10 ml QSHIFT@10,22 IV 09/23/24 22:00 10/08/24 22:12 10 ML Lactulose 30 ml BID GT 09/24/24 10:00 10/08/24 22:12 30 ML Doxycycline Hyclate 100 ml @ 50 mls/hr Q12HR IV 09/27/24 09:15 10/08/24 22:12 50 MLS/HR Purified Water 100 ml Q6HR GT 09/28/24 12:00 10/08/24 11:37 100 ML Insulin Glargine 12 units DAILY@1000 SC 09/28/24 10:00 10/08/24 09:56 12 UNITS Insulin Human Regular Q6HR SC 09/28/24 12:00 10/04/24 18:17 2 UNITS Dextrose 50 ml UD PRN IV 09/28/24 09:00 Glycopyrrolate 0.2 mg Q12HP IV 09/28/24 10:00 10/08/24 22:12 0.2 MG Metoclopramide HCl 5 mg Q8HP PRN GT 09/29/24 07:30 Propofol 100 ml @ 3.768 mls/ hr Q24H IV 10/03/24 12:00 10/08/24 20:05 3.768 MLS/HR Enteral Nutritional Formula 1,000 ml 50ML/HR GT 10/04/24 14:00 10/08/24 05:47 1,000 ML Risperidone 2 mg BID PO 10/04/24 22:00 10/08/24 22:12 2 MG Mupirocin 1 applic BID EACHNOSTRI 10/08/24 22:00 10/13/24 21:59 10/08/24 22:15 1 APPLIC objective Gen.: Patient lying in bed in medical ICU. Sedated, on mechanical ventilator. S/p Trach Head: Normocephalic, atraumatic. Eyes: PERRLA. Ears: Normal external anatomy. Throat: Endotracheal tube and orogastric tube in place. Neck: Trach in place. Chest: Transmitted breath sounds bilaterally. Decreased air entry bilaterally. No wheezing. Bibasilar crackles. Cardiovascular: Positive S1, positive S2. Regular rate and rhythm. Abdomen: Positive bowel sounds in all 4 quadrants. Soft, nontender, nondistended. : Teague in place. Normal external genitalia. Rectal: Deferred. Skin: Warm, dry. Intact. Extremities: 2+ radial pulses bilaterally. No lower extremity edema. Neuro: Sedated. laboratory and microbiology Laboratory Tests 10/08/24 03:25 Test 10/08/24 03:25 Range/Units Serum Glucose 111 H 74-106 mg/dL Assessment/Plan Impression: Acute hypoxic respiratory failure Acute hypercarbic respiratory failure On mechanical ventilator Pleural effusions Atelectasis Morbid obesity with a BMI of 44.8 Pulmonary edema Acute exacerbation of COPD vs Asthma Elevated troponin Events: Remains on vent support On AC mode with RR 20, VT 500, PEEP 8, FIO2 40% Failed SBT due to apnea Patient spiked temperature to 102 degrees Fahrenheit. Cooling measures S/p trach Trach care Sedated on Propofol, Versed. Fentanyl Off Levophed, hemodynamically stable. Continue bronchodilators Continue antibiotics Monitor WBC Tube feeds via NGT for nutritional support Pt is not tolerating taper of sedation Continue daily SBT/LAINE CPAP with PS 8, PEEP of 5 OK to increase PS to max 20 cmH2O to achieve tidal volume 450-550 mL Recommend transfer to LTAC for ongoing liberation from mechanical ventilator. Remove trach sutures 7 to 10 days post trach 09/24/24 - S/p therapeutic bronchoscopy with clearing of secretions/mucous plugging from L1-L3 and R1-R3 and R6-R10. 09/18/24 - S/p therapeutic bronchoscopy w/ RLL BAL. Mucous plugging cleared from L1-L3 and L6-L10 and R1-R3 and R6-R10 See separate procedure note for details 09/16/24 - S/p bronchoscopy w/ bronchoalveolar lavage, removed copious mucous plugs from RUL/RLL + FROYLAN. See separate procedure note for details. Labs and imaging reviewed. Rest of plan as noted below. Plan: s/p intubation, on mechanical ventilator On AC mode with RR 20, VT 500, PEEP 8, FIO2 40% Taper FiO2 as tolerated S/p trach Trach care Sedated for vent synchrony Bronchodilators Steroids - completed Pressors as necessary for hemodynamic support. Titrate to keep MAP above 65 mmHg/SBP above 90 mmHg. F/u Echo to evaluate LVEF, RVSP and r/o valvular dysfunction. Cardiology recommendations appreciated Antibiotics F/u cultures. Monitor renal function due to Acute kidney injury. Monitor electrolytes. Supplement as necessary. Nutritional support. Accu-Cheks, ISS. Morbid obesity, complicates all care. Diet and lifestyle modifications for weight reduction recommended. GI/DVT prophylaxis. Condition: Critical Prognosis: Poor given multiple comorbidities. Rest of plan per hospitalist and other consultants. A total of 35 minutes of critical care time was spent reviewing the patient record, examining the patient, making a diagnostic and therapeutic plan, discussing this plan with the medical personnel, following up on diagnostic studies and following the patient for clinical stability excluding any and all procedures. At least 50% of this time was spent in direct, [id number] contact. Thank you ANAHI Montoya for allowing me to participate in this patient's care. Further recommendations will depend on patient's clinical course. Please do not hesitate to contact me if you have any questions or concerns. This medical document was created using an electronic medical record system with [employer] dictation system. Although this document has been carefully reviewed, there may still be some phonetic and typographical errors. These areas are purely typographical due to imperfections of the software programs, and do not reflect any compromise in the patient's medical care. Dietary Evaluation Review Recommendations by RD: Increase Calorie Intake Comments: 1. Increase TF as tolerated to goal rate to 50 mL/hr.Goal rate will provide ~ 87 daily estimated energy needs and ~60% daily estimated protein needs. 2. Advance to C[facility] 60g diet pending NUMERICAL CONTROL NESTING OPERATOR approval when medically feasible. 3. Continue to monitor patient's weight and labs. Expected Outcomes/Goals: 1. labs to improve 2. diet to advance 3. continue plan of care 4. f/u in 2-3 days Plan discussed with: Other (FERNANDO Livingston) Critical Care Time(min): 35 LIZ GUDINO MD Oct 08, 2024 23:17
[2024-10-09] VITALS (108 sets, daily range): BP systolic 87–133; BP diastolic 16–78; PULSE 59–139; RESP 13–27; TEMP 98.6–100; O2SAT 90–100
[2024-10-09 03:59] LABS: Basophils # (auto) 0.1 10 ^3/uL (0-0.2); Basophils % (auto) 0.7 % (0.0-2.0); Eosinophils # (auto) 0.1 10 ^3/uL (0-0.8); Eosinophils % (auto) 1.4 % (0.0-7.0); Hematocrit 34.5 % (41.0-53.0); Hemoglobin 11.5 g/dL (13.5-17.5); Lymphocytes # (auto) 1.5 10 ^3/uL (0.4-5.4); Lymphocytes % (auto) 14.4 % (10.0-50.0); Mean Corpuscular Hemoglobin 30.3 pg (28.0-32.0); Mean Corpuscular Hgb Conc. 33.5 g/dL (32.0-36.0); Mean Corpuscular Volume 90.5 fL (80.0-100.0); Monocytes # (auto) 0.6 10 ^3/uL (0-1.3); Monocytes % (auto) 6.2 % (0.0-12.0); Neutrophils % (auto) 77.3 % (37.0-80.0); Nucleated Red Blood Cells % 0.2 %; Platelet Count (auto) 361 10^3/uL (140-450); Red Blood Cells 3.81 10^6/uL (4.5-5.90); Red Cell Distribution Width 13.6 % (11.8-14.3); White Blood Cell 10.4 10^3/uL (4.4-10.8)
[2024-10-09 04:12] LABS: Chloride 103 mmol/L (98-107); Potassium 3.9 mmol/L (3.5-5.1)
[2024-10-09 04:13] LABS: Anion Gap 10 (5-15); Calcium 10.2 mg/dL (8.7-10.4); Carbon Dioxide 25 mmol/L (20-31); Sodium 138 mmol/L (136-145)
[2024-10-09 04:19] LABS: BUN/Creatinine Ratio 14.5 (10.0-20.0); Blood Urea Nitrogen 8 mg/dL (9-23); Glucose 122 mg/dL (74-106)
--- NOTE | 2024-10-09 07:00 | DVHPN2 ---
Subjective Intubated and chemically sedated. Reviewed: Care Plan, H&P, Labs, Medications, Previous Orders, Radiology, Other (Consultations) Changes from previous H/P or p: No Changes General: Per HPI Objective Vitals Vital Signs Date Time Temp Pulse Resp B/P (MAP) Pulse Ox O2 Delivery O2 Flow Rate FiO2 10/09/24 06:45 99.1 75 20 97/49 (65) 94 210.4 10/09/24 06:00 40 10/09/24 06:00 Mechanical Ventilator+ Intake/Output Intake and Output 10/09/24 07:00 Intake Total 1498.368 ml Output Total 1800 ml Balance -301.632 ml Intake Oral 540 ml IV Total 958.368 ml Output Urine Total 1800 ml # Bowel Movements 1 General Appearance: mild distress, Other (Intubated and Sedated) HEENT: Atraumatic, PERRLA, Other (Tracheostomy in place with no drainage/discharge/bleeding) Neck: Other (Trach) Lungs: Other (Mechanical ventilation sounds) Cardiovascular: Regular rate, Normal S1, Normal S2 Abdomen: Normal bowel sounds, Soft Genitourinary: Other (Spence's catheter) Musculoskeletal: Weak motor strength RUE, Weak motor strength LUE Extremities: Other (1+ bilateral lower extremities edema) Neuro: Other (Sedated) Skin: Dry, Intact Psych/Mental Status: Other (Sedated) Medications Current Medications Medications Dose Ordered Sig/Felicitas Route Start Time Stop Time Status Last Admin Dose Admin Ondansetron HCl 4 mg Q4HP PRN IV 09/01/24 10:30 Nitroglycerin 0.4 mg Q5MINP PRN SL 09/01/24 10:30 Piperacillin Sod/ Tazobactam Sod 100 ml @ 25 mls/hr Q6HR IV 09/01/24 18:00 UNV Acetaminophen 650 mg Q6HP PRN PO 09/09/24 10:45 10/04/24 21:46 650 MG Diagnostic Test (Pha) 1 strip Q6HR 09/10/24 12:00 10/09/24 05:42 1 STRIP Dextrose 50 ml UD PRN IV 09/10/24 08:15 Cancel Ipratropium [place] 0.5 mg Q6HR NEB 09/13/24 12:00 10/09/24 00:08 0.5 MG Levalbuterol HCl 1.25 mg Q6HR NEB 09/13/24 12:00 10/09/24 00:08 1.25 MG Lorazepam 0.5 mg Q8HP PRN IV 09/15/24 13:15 09/15/24 20:27 0.5 MG Midazolam HCl 50 ml @ 1 mls/hr Q24H IV 09/16/24 09:00 10/08/24 20:38 4 MLS/HR Fentanyl Citrate 250 ml @ 2.5 mls/hr Q24H IV 09/16/24 09:00 10/08/24 20:27 17.5 MLS/HR Norepinephrine Bitartrate 32 mg/ Sodium Chloride 250 ml @ 0.938 mls/ hr Q24H IV 09/16/24 17:45 10/06/24 18:22 0.938 MLS/HR Sodium Chloride 10 ml QSHIFT@10,22 IV 09/23/24 22:00 10/08/24 22:12 10 ML Lactulose 30 ml BID GT 09/24/24 10:00 10/08/24 22:12 30 ML Doxycycline Hyclate 100 ml @ 50 mls/hr Q12HR IV 09/27/24 09:15 10/08/24 22:12 50 MLS/HR Purified Water 100 ml Q6HR GT 09/28/24 12:00 10/09/24 05:42 100 ML Insulin Glargine 12 units DAILY@1000 SC 09/28/24 10:00 10/08/24 09:56 12 UNITS Insulin Human Regular Q6HR SC 09/28/24 12:00 10/04/24 18:17 2 UNITS Dextrose 50 ml UD PRN IV 09/28/24 09:00 Glycopyrrolate 0.2 mg Q12HP IV 09/28/24 10:00 10/08/24 22:12 0.2 MG Metoclopramide HCl 5 mg Q8HP PRN GT 09/29/24 07:30 Propofol 100 ml @ 3.768 mls/ hr Q24H IV 10/03/24 12:00 10/09/24 00:54 11.304 MLS/HR Enteral Nutritional Formula 1,000 ml 50ML/HR GT 10/04/24 14:00 10/08/24 05:47 1,000 ML Risperidone 2 mg BID PO 10/04/24 22:00 10/08/24 22:12 2 MG Mupirocin 1 applic BID EACHNOSTRI 10/08/24 22:00 10/13/24 21:59 10/08/24 22:15 1 APPLIC Laboratory Results Laboratory Tests 10/09/24 03:02 Chemistry Test 10/09/24 03:02 Calcium Level 10.2 mg/dL (8.7-10.4) Microbiology Microbiology Date/Time Source Procedure Growth Status 09/27/24 08:20 Sputum Gram Stain - Final Complete 09/27/24 08:20 Respiratory Culture - Final Methicillin Resistant S.aureus Complete 09/26/24 15:13 Urine - [place] Urine Culture - Final Complete 09/26/24 13:06 Blood Blood Culture - Final NO GROWTH AFTER 5 DAYS OF INCUBATION. Complete 09/16/24 15:13 Other Endotracheal Wash Gram Stain - Final Complete 09/16/24 15:13 Respiratory Culture - Final Methicillin Resistant S.aureus Complete Labs and/or images reviewed: Labs reviewed by me, Image(s) reviewed by me Assessment/Plan Assessment/Plan Impression: -acute hypoxic and hypercarbic respiratory failure with failure of noninvasive positive pressure ventilation -community-acquired pneumonia, MRSA -morbid obesity -nicotine dependence -sepsis -history of schizophrenia -NSTEMI type 2 -Tracheostomy -septic shock -diabetes mellitus Plan: Events: Awaiting for transfer to LTACH. According to nurse, unable to tolerate coming off sedation. Patient continues to be on fentanyl, Versed, Diprivan. Vasopressors off. -continue tube feeding -Continue Bowel Regimen -continue regular insulin sliding scale, Lantus 12 units daily -pulmonology consultation: Recommendations reviewed -Continue doxy. -Solu-Medrol to 40 mg daily taper off -continue DVT prophylaxis -PUD prophylaxis -continue bronchodilators, Pulmicort, Mucomyst Critical care time spent with patient discussing and formulating plan of care: 40 minutes. This does not include time spent performing procedures. This medical document was created using an electronic medical record system with [employer] system. Although this document has been carefully reviewed, there may still be some phonetic and typographical errors. These areas are purely typographical due to imperfections of the software programs, and do not reflect any compromise in the patient's medical care. Plan discussed with: Patient, Other (RN) My Orders Orders - ZUHAIR GUILLORY NP Procedure Category Date Status Time Respiratory Culture MEGHAN 10/08/24 In Process W/ Gs 10:02 Mupirocin 2% Oint PHA 10/08/24 In Process Mrsa Nares (Bactroban 22:00 Date of Service: Oct 09, 2024 Billing Provider: ZUHAIR GUILLORY NP Common Visit Codes: 83317-[id number] CARE 30-74 MIN ZUHAIR GUILLORY NP Oct 09, 2024 07:00
--- NOTE | 2024-10-09 23:35 | DVHPN2 ---
Progress Note - Dictate Date Seen: Oct 09, 2024 Medical Necessity Reason Pt with a Central, PICC or Fol: Yes The following are medically ne: Teague Catheter Reason for teague catheter: Strict I&O Subjective Patient seen and examined at bedside. Sedated, on mechanical ventilator. s/p trach Overnight events reviewed. vital signs Vital Sign Date Time Temp Pulse Resp B/P (MAP) Pulse Ox O2 Delivery O2 Flow Rate FiO2 10/09/24 23:00 99.0 71 20 92/45 (61) 96 210.2 10/09/24 22:00 40 10/09/24 20:00 Mechanical Ventilator+ Total Intake and Output 10/08/24 10/08/24 10/09/24 14:59 22:59 06:59 Intake Total 373.844 ml 522.432 ml 642.432 ml Output Total 850 ml 950 ml Balance 373.844 ml -327.568 ml -307.568 ml medications Current Medications Medications Dose Ordered Sig/Felicitas Route Start Time Stop Time Status Last Admin Dose Admin Ondansetron HCl 4 mg Q4HP PRN IV 09/01/24 10:30 Nitroglycerin 0.4 mg Q5MINP PRN SL 09/01/24 10:30 Piperacillin Sod/ Tazobactam Sod 100 ml @ 25 mls/hr Q6HR IV 09/01/24 18:00 UNV Acetaminophen 650 mg Q6HP PRN PO 09/09/24 10:45 10/04/24 21:46 650 MG Diagnostic Test (Pha) 1 strip Q6HR 09/10/24 12:00 10/09/24 17:28 1 STRIP Dextrose 50 ml UD PRN IV 09/10/24 08:15 Cancel Ipratropium [place] 0.5 mg Q6HR NEB 09/13/24 12:00 10/09/24 18:29 0.5 MG Levalbuterol HCl 1.25 mg Q6HR NEB 09/13/24 12:00 10/09/24 18:29 1.25 MG Lorazepam 0.5 mg Q8HP PRN IV 09/15/24 13:15 09/15/24 20:27 0.5 MG Midazolam HCl 50 ml @ 1 mls/hr Q24H IV 09/16/24 09:00 10/09/24 17:06 4 MLS/HR Fentanyl Citrate 250 ml @ 2.5 mls/hr Q24H IV 09/16/24 09:00 10/09/24 09:48 17.5 MLS/HR Norepinephrine Bitartrate 32 mg/ Sodium Chloride 250 ml @ 0.938 mls/ hr Q24H IV 09/16/24 17:45 10/06/24 18:22 0.938 MLS/HR Sodium Chloride 10 ml QSHIFT@10,22 IV 09/23/24 22:00 10/09/24 22:28 10 ML Lactulose 30 ml BID GT 09/24/24 10:00 10/08/24 22:12 30 ML Doxycycline Hyclate 100 ml @ 50 mls/hr Q12HR IV 09/27/24 09:15 10/09/24 22:25 50 MLS/HR Purified Water 100 ml Q6HR GT 09/28/24 12:00 10/09/24 17:25 100 ML Insulin Glargine 12 units DAILY@1000 SC 09/28/24 10:00 10/09/24 09:55 12 UNITS Insulin Human Regular Q6HR SC 09/28/24 12:00 10/04/24 18:17 2 UNITS Dextrose 50 ml UD PRN IV 09/28/24 09:00 Glycopyrrolate 0.2 mg Q12HP IV 09/28/24 10:00 10/09/24 22:27 0.2 MG Metoclopramide HCl 5 mg Q8HP PRN GT 09/29/24 07:30 Propofol 100 ml @ 3.768 mls/ hr Q24H IV 10/03/24 12:00 10/09/24 17:05 11.304 MLS/HR Enteral Nutritional Formula 1,000 ml 50ML/HR GT 10/04/24 14:00 10/08/24 05:47 1,000 ML Risperidone 2 mg BID PO 10/04/24 22:00 10/09/24 22:32 2 MG Mupirocin 1 applic BID EACHNOSTRI 10/08/24 22:00 10/13/24 21:59 10/09/24 22:00 1 APPLIC objective Gen.: Patient lying in bed in medical ICU. Sedated, on mechanical ventilator. S/p Trach Head: Normocephalic, atraumatic. Eyes: PERRLA. Ears: Normal external anatomy. Throat: Endotracheal tube and orogastric tube in place. Neck: Trach in place. Chest: Transmitted breath sounds bilaterally. Decreased air entry bilaterally. No wheezing. Bibasilar crackles. Cardiovascular: Positive S1, positive S2. Regular rate and rhythm. Abdomen: Positive bowel sounds in all 4 quadrants. Soft, nontender, nondistended. : Teague in place. Normal external genitalia. Rectal: Deferred. Skin: Warm, dry. Intact. Extremities: 2+ radial pulses bilaterally. No lower extremity edema. Neuro: Sedated. laboratory and microbiology Laboratory Tests 10/09/24 03:02 Test 10/09/24 03:02 Range/Units Serum Glucose 122 H 74-106 mg/dL Assessment/Plan Impression: Acute hypoxic respiratory failure Acute hypercarbic respiratory failure On mechanical ventilator Pleural effusions Atelectasis Morbid obesity with a BMI of 44.8 Pulmonary edema Acute exacerbation of COPD vs Asthma Elevated troponin Events: Remains on vent support On AC mode with RR 20, VT 500, PEEP 5, FIO2 40% Failed SBT due to apnea S/p trach Trach care Sedated on Propofol, Versed. Fentanyl Off Levophed, hemodynamically stable. No daily CXR. Continue antibiotics Monitor WBC Tube feeds via NGT for nutritional support Pt is not tolerating taper of sedation Continue daily SBT/LAINE CPAP with PS 8, PEEP of 5 OK to increase PS to max 20 cmH2O to achieve tidal volume 450-550 mL Recommend transfer to LTAC for ongoing liberation from mechanical ventilator. Remove trach sutures 7 to 10 days post trach 09/24/24 - S/p therapeutic bronchoscopy with clearing of secretions/mucous plugging from L1-L3 and R1-R3 and R6-R10. 09/18/24 - S/p therapeutic bronchoscopy w/ RLL BAL. Mucous plugging cleared from L1-L3 and L6-L10 and R1-R3 and R6-R10 See separate procedure note for details 09/16/24 - S/p bronchoscopy w/ bronchoalveolar lavage, removed copious mucous plugs from RUL/RLL + FROYLAN. See separate procedure note for details. Labs and imaging reviewed. Rest of plan as noted below. Plan: s/p intubation, on mechanical ventilator On AC mode with RR 20, VT 500, PEEP 8, FIO2 40% Taper FiO2 as tolerated S/p trach Trach care Sedated for vent synchrony Bronchodilators Steroids - completed Pressors as necessary for hemodynamic support. Titrate to keep MAP above 65 mmHg/SBP above 90 mmHg. F/u Echo to evaluate LVEF, RVSP and r/o valvular dysfunction. Cardiology recommendations appreciated Antibiotics F/u cultures. Monitor renal function due to Acute kidney injury. Monitor electrolytes. Supplement as necessary. Nutritional support. Accu-Cheks, ISS. Morbid obesity, complicates all care. Diet and lifestyle modifications for weight reduction recommended. GI/DVT prophylaxis. Condition: Critical Prognosis: Poor given multiple comorbidities. Rest of plan per hospitalist and other consultants. A total of 35 minutes of critical care time was spent reviewing the patient record, examining the patient, making a diagnostic and therapeutic plan, discussing this plan with the medical personnel, following up on diagnostic studies and following the patient for clinical stability excluding any and all procedures. At least 50% of this time was spent in direct, [id number] contact. Thank you ANAHI Montoya for allowing me to participate in this patient's care. Further recommendations will depend on patient's clinical course. Please do not hesitate to contact me if you have any questions or concerns. This medical document was created using an electronic medical record system with [employer] dictation system. Although this document has been carefully reviewed, there may still be some phonetic and typographical errors. These areas are purely typographical due to imperfections of the software programs, and do not reflect any compromise in the patient's medical care. Dietary Evaluation Review Recommendations by RD: Increase Calorie Intake Comments: 1. Increase TF as tolerated to goal rate to 50 mL/hr.Goal rate will provide ~ 87 daily estimated energy needs and ~60% daily estimated protein needs. [facility] pending GRINDER SET UP OPERATOR approval when medically feasible. 3. Continue to monitor patient's weight and labs. Expected Outcomes/Goals: 1. labs to improve 2. diet to advance 3. continue plan of care 4. f/u in 2-3 days Plan discussed with: Other (FERNANDO Baez) Critical Care Time(min): 35 LIZ GUDINO MD Oct 09, 2024 23:35
[2024-10-10] VITALS (100 sets, daily range): BP systolic 85–133; BP diastolic 6–86; PULSE 58–138; RESP 11–29; TEMP 98.1–100.4; O2SAT 87–100
[2024-10-10 03:43] LABS: Basophils # (auto) 0.1 10 ^3/uL (0-0.2); Basophils % (auto) 0.5 % (0.0-2.0); Eosinophils # (auto) 0.2 10 ^3/uL (0-0.8); Hematocrit 38.5 % (41.0-53.0); Hemoglobin 12.6 g/dL (13.5-17.5); Lymphocytes # (auto) 2.6 10 ^3/uL (0.4-5.4); Lymphocytes % (auto) 22.6 % (10.0-50.0); Mean Corpuscular Hemoglobin 30.2 pg (28.0-32.0); Mean Corpuscular Hgb Conc. 32.8 g/dL (32.0-36.0); Mean Corpuscular Volume 92.1 fL (80.0-100.0); Monocytes # (auto) 1.1 10 ^3/uL (0-1.3); Monocytes % (auto) 9.7 % (0.0-12.0); Neutrophils # (auto) 7.5 10 ^3/uL (1.6-8.6); Neutrophils % (auto) 65.2 % (37.0-80.0); Platelet Count (auto) 341 10^3/uL (140-450); Red Blood Cells 4.19 10^6/uL (4.5-5.90); Red Cell Distribution Width 13.6 % (11.8-14.3); White Blood Cell 11.5 10^3/uL (4.4-10.8)
[2024-10-10 03:54] LABS: Anion Gap 10 (5-15); Carbon Dioxide 25 mmol/L (20-31); Chloride 103 mmol/L (98-107); Potassium 4.1 mmol/L (3.5-5.1); Sodium 138 mmol/L (136-145)
[2024-10-10 03:55] LABS: Calcium 10.4 mg/dL (8.7-10.4)
[2024-10-10 04:00] LABS: BUN/Creatinine Ratio 12.1 (10.0-20.0); Glucose 106 mg/dL (74-106)
[2024-10-10 04:17] LABS: Blood Urea Nitrogen 7 mg/dL (9-23)
[2024-10-10 07:34] LABS: Base Excess 0.8 mmol/L (-2.0-3.0)
--- NOTE | 2024-10-10 09:11 | DVHPN2 ---
Subjective Intubated and chemically sedated. Reviewed: Care Plan, H&P, Labs, Medications, Previous Orders, Radiology, Other (Consultations) Changes from previous H/P or p: No Changes General: Per HPI Objective Vitals Vital Signs Date Time Temp Pulse Resp B/P (MAP) Pulse Ox O2 Delivery O2 Flow Rate FiO2 10/10/24 08:59 65 20 119/6 100 40 10/10/24 06:30 99.5 211.1 10/10/24 00:04 Mechanical Ventilator+ Intake/Output Intake and Output 10/10/24 07:00 Intake Total 1856.545 ml Output Total 1650 ml Balance 206.545 ml Intake Oral 260 ml IV Total 861.545 ml Tube Feeding 535 ml Other 200 ml Output Urine Total 1650 ml # Bowel Movements 1 General Appearance: Alert, Other (Following some commands) HEENT: Atraumatic, PERRLA, Other (Tracheostomy in place with no drainage/discharge/bleeding) Neck: Other (Trach) Lungs: Other (Mechanical ventilation sounds) Cardiovascular: Regular rate, Normal S1, Normal S2 Abdomen: Normal bowel sounds, Soft Genitourinary: Other (Spence's catheter) Musculoskeletal: Weak motor strength RUE, Weak motor strength LUE Extremities: Other (1+ bilateral lower extremities edema) Neuro: Other (Sedated) Skin: Dry, Intact Psych/Mental Status: Other (Sedated) Medications Current Medications Medications Dose Ordered Sig/Felicitas Route Start Time Stop Time Status Last Admin Dose Admin Ondansetron HCl 4 mg Q4HP PRN IV 09/01/24 10:30 Nitroglycerin 0.4 mg Q5MINP PRN SL 09/01/24 10:30 Piperacillin Sod/ Tazobactam Sod 100 ml @ 25 mls/hr Q6HR IV 09/01/24 18:00 UNV Acetaminophen 650 mg Q6HP PRN PO 09/09/24 10:45 10/04/24 21:46 650 MG Diagnostic Test (Pha) 1 strip Q6HR 09/10/24 12:00 10/10/24 06:23 1 STRIP Dextrose 50 ml UD PRN IV 09/10/24 08:15 Cancel Ipratropium [place] 0.5 mg Q6HR NEB 09/13/24 12:00 10/10/24 05:59 0.5 MG Levalbuterol HCl 1.25 mg Q6HR NEB 09/13/24 12:00 10/10/24 05:59 1.25 MG Lorazepam 0.5 mg Q8HP PRN IV 09/15/24 13:15 09/15/24 20:27 0.5 MG Midazolam HCl 50 ml @ 1 mls/hr Q24H IV 09/16/24 09:00 10/09/24 17:06 4 MLS/HR Fentanyl Citrate 250 ml @ 2.5 mls/hr Q24H IV 09/16/24 09:00 10/10/24 02:09 17.5 MLS/HR Norepinephrine Bitartrate 32 mg/ Sodium Chloride 250 ml @ 0.938 mls/ hr Q24H IV 09/16/24 17:45 10/06/24 18:22 0.938 MLS/HR Sodium Chloride 10 ml QSHIFT@10,22 IV 09/23/24 22:00 10/09/24 22:28 10 ML Lactulose 30 ml BID GT 09/24/24 10:00 10/08/24 22:12 30 ML Doxycycline Hyclate 100 ml @ 50 mls/hr Q12HR IV 09/27/24 09:15 10/09/24 22:25 50 MLS/HR Purified Water 100 ml Q6HR GT 09/28/24 12:00 10/10/24 06:23 100 ML Insulin Glargine 12 units DAILY@1000 SC 09/28/24 10:00 10/09/24 09:55 12 UNITS Insulin Human Regular Q6HR SC 09/28/24 12:00 10/04/24 18:17 2 UNITS Dextrose 50 ml UD PRN IV 09/28/24 09:00 Glycopyrrolate 0.2 mg Q12HP IV 09/28/24 10:00 10/09/24 22:27 0.2 MG Metoclopramide HCl 5 mg Q8HP PRN GT 09/29/24 07:30 Propofol 100 ml @ 3.768 mls/ hr Q24H IV 10/03/24 12:00 10/09/24 17:05 11.304 MLS/HR Enteral Nutritional Formula 1,000 ml 50ML/HR GT 10/04/24 14:00 10/08/24 05:47 1,000 ML Risperidone 2 mg BID PO 10/04/24 22:00 10/09/24 22:32 2 MG Mupirocin 1 applic BID EACHNOSTRI 10/08/24 22:00 10/13/24 21:59 10/09/24 22:00 1 APPLIC Laboratory Results Laboratory Tests 10/10/24 03:30 Chemistry Test 10/10/24 03:30 Calcium Level 10.4 mg/dL (8.7-10.4) Blood Gas Results Test 10/10/24 07:04 Arterial Blood pH 7.448 (7.350-7.450) FiO2 % 40.0 Microbiology Microbiology Date/Time Source Procedure Growth Status 10/08/24 11:05 Trachea Gram Stain - Final Resulted 10/08/24 11:05 Trachea Respiratory Culture - Preliminary Resulted 09/27/24 08:20 Sputum Gram Stain - Final Complete 09/27/24 08:20 Respiratory Culture - Final Methicillin Resistant S.aureus Complete 09/26/24 15:13 Urine - [place] Urine Culture - Final Complete 09/26/24 13:06 Blood Blood Culture - Final NO GROWTH AFTER 5 DAYS OF INCUBATION. Complete Labs and/or images reviewed: Labs reviewed by me, Image(s) reviewed by me Assessment/Plan Assessment/Plan Impression: -acute hypoxic and hypercarbic respiratory failure with failure of noninvasive positive pressure ventilation -community-acquired pneumonia, MRSA -morbid obesity -nicotine dependence -sepsis -history of schizophrenia -NSTEMI type 2 -Tracheostomy -septic shock -diabetes mellitus Plan: Events: Awaiting for transfer to LTACH. Patient opening eyes and following some commands. Awaiting LTAC transfer. Hold off on PEG tube, given patient has good probability of transitioning from mechanical ventilation for swallow evaluation. -continue tube feeding -Continue Bowel Regimen -continue regular insulin sliding scale, Lantus 12 units daily -pulmonology consultation: Recommendations reviewed -Continue doxy. -Solu-Medrol to 40 mg daily taper off -continue DVT prophylaxis -PUD prophylaxis -continue bronchodilators, Pulmicort, Mucomyst Critical care time spent with patient discussing and formulating plan of care: 40 minutes. This does not include time spent performing procedures. This medical document was created using an electronic medical record system with [employer] system. Although this document has been carefully reviewed, there may still be some phonetic and typographical errors. These areas are purely typographical due to imperfections of the software programs, and do not reflect any compromise in the patient's medical care. Plan discussed with: Patient, Other (RN) My Orders Orders - ZUHAIR GUILLORY NP Procedure Category Date Status Time Chest Portable XY 10/11/24 Logged 04:00 Basic Metabolic Panel LAB 10/11/24 Verified 04:00 Complete Blood Count LAB 10/11/24 Verified 04:00 Date of Service: Oct 10, 2024 Billing Provider: ZUHAIR GUILLORY NP Common Visit Codes: [id number] CARE 30-74 MIN ZUHAIR GUILLORY NP Oct 10, 2024 09:11
--- NOTE | 2024-10-10 20:58 | DVH ---
CHEST RADIOGRAPH Indication: ng tube placement Technique: Single frontal view of the chest was obtained COMPARISON: XY CHEST XRAY 1 VIEW on DOS: 10/08/24, XY CHEST PORTABLE on DOS: 10/06/24, XY CHEST XRAY 1 VIEW on DOS: 10/05/24, XY CHEST XRAY 1 VIEW on DOS: 10/03/24, XY CHEST PORTABLE on DOS: 09/30/24 FINDINGS: Lines and Tubes: Tracheostomy tube noted as well as Ng tube extending below the diaphragm. Lungs: Lung volumes are low. Bibasilar atelectasis/consolidation. Cardiomediastinal contours: Unremarkable IMPRESSION: Low lung volumes with bibasilar atelectasis/consolidation. No significant change compared to the prio r chest x-ray from 10/08/2024.
--- NOTE | 2024-10-10 22:53 | DVHPN2 ---
Progress Note - Dictate Date Seen: Oct 10, 2024 Medical Necessity Reason Pt with a Central, PICC or Fol: Yes The following are medically ne: Teague Catheter Reason for teague catheter: Strict I&O Subjective Patient seen and examined at bedside. Sedated, on mechanical ventilator. s/p trach Overnight events reviewed. vital signs Vital Sign Date Time Temp Pulse Resp B/P (MAP) Pulse Ox O2 Delivery O2 Flow Rate FiO2 10/10/24 22:30 100.4 10/10/24 21:58 81 20 123/60 (81) 93 40 10/10/24 20:00 Mechanical Ventilator+ Total Intake and Output 10/09/24 10/09/24 10/10/24 14:59 22:59 06:59 Intake Total 288.557 ml 522.432 ml 1078.360 ml Output Total 950 ml 700 ml Balance 288.557 ml -427.568 ml 378.360 ml medications Current Medications Medications Dose Ordered Sig/Felicitas Route Start Time Stop Time Status Last Admin Dose Admin Ondansetron HCl 4 mg Q4HP PRN IV 09/01/24 10:30 Nitroglycerin 0.4 mg Q5MINP PRN SL 09/01/24 10:30 Piperacillin Sod/ Tazobactam Sod 100 ml @ 25 mls/hr Q6HR IV 09/01/24 18:00 UNV Acetaminophen 650 mg Q6HP PRN PO 09/09/24 10:45 10/10/24 22:30 650 MG Diagnostic Test (Pha) 1 strip Q6HR 09/10/24 12:00 10/10/24 17:48 1 STRIP Dextrose 50 ml UD PRN IV 09/10/24 08:15 Cancel Ipratropium [place] 0.5 mg Q6HR NEB 09/13/24 12:00 10/10/24 18:05 0.5 MG Levalbuterol HCl 1.25 mg Q6HR NEB 09/13/24 12:00 10/10/24 18:05 1.25 MG Lorazepam 0.5 mg Q8HP PRN IV 09/15/24 13:15 09/15/24 20:27 0.5 MG Midazolam HCl 50 ml @ 1 mls/hr Q24H IV 09/16/24 09:00 10/09/24 17:06 4 MLS/HR Fentanyl Citrate 250 ml @ 2.5 mls/hr Q24H IV 09/16/24 09:00 10/10/24 16:53 17.5 MLS/HR Norepinephrine Bitartrate 32 mg/ Sodium Chloride 250 ml @ 0.938 mls/ hr Q24H IV 09/16/24 17:45 10/06/24 18:22 0.938 MLS/HR Sodium Chloride 10 ml QSHIFT@10,22 IV 09/23/24 22:00 10/10/24 22:30 10 ML Lactulose 30 ml BID GT 09/24/24 10:00 10/10/24 22:29 30 ML Doxycycline Hyclate 100 ml @ 50 mls/hr Q12HR IV 09/27/24 09:15 10/10/24 22:30 50 MLS/HR Purified Water 100 ml Q6HR GT 09/28/24 12:00 10/10/24 12:00 100 ML Insulin Glargine 12 units DAILY@1000 SC 09/28/24 10:00 10/10/24 10:36 12 UNITS Insulin Human Regular Q6HR SC 09/28/24 12:00 10/04/24 18:17 2 UNITS Dextrose 50 ml UD PRN IV 09/28/24 09:00 Glycopyrrolate 0.2 mg Q12HP IV 09/28/24 10:00 10/10/24 22:29 0.2 MG Metoclopramide HCl 5 mg Q8HP PRN GT 09/29/24 07:30 Propofol 100 ml @ 3.768 mls/ hr Q24H IV 10/03/24 12:00 10/10/24 19:38 7.536 MLS/HR Enteral Nutritional Formula 1,000 ml 50ML/HR GT 10/04/24 14:00 10/08/24 05:47 1,000 ML Risperidone 2 mg BID PO 10/04/24 22:00 10/10/24 22:30 2 MG Mupirocin 1 applic BID EACHNOSTRI 10/08/24 22:00 10/13/24 21:59 10/10/24 22:36 1 APPLIC objective Gen.: Patient lying in bed in medical ICU. Sedated, on mechanical ventilator. S/p Trach Head: Normocephalic, atraumatic. Eyes: PERRLA. Ears: Normal external anatomy. Throat: Endotracheal tube and orogastric tube in place. Neck: Trach in place. Chest: Transmitted breath sounds bilaterally. Decreased air entry bilaterally. No wheezing. Bibasilar crackles. Cardiovascular: Positive S1, positive S2. Regular rate and rhythm. Abdomen: Positive bowel sounds in all 4 quadrants. Soft, nontender, nondistended. : Teague in place. Normal external genitalia. Rectal: Deferred. Skin: Warm, dry. Intact. Extremities: 2+ radial pulses bilaterally. No lower extremity edema. Neuro: Sedated. laboratory and microbiology Laboratory Tests 10/10/24 03:30 Test 10/10/24 03:30 Range/Units Serum Glucose 106 74-106 mg/dL Assessment/Plan Impression: Acute hypoxic respiratory failure Acute hypercarbic respiratory failure On mechanical ventilator Pleural effusions Atelectasis Morbid obesity with a BMI of 44.8 Pulmonary edema Acute exacerbation of COPD vs Asthma Elevated troponin Events: Remains on vent support On AC mode with RR 20, VT 500, PEEP 5, FIO2 40% Tolerated 4 hours of SBT S/p trach Trach care Sedated on Propofol, Versed. Fentanyl Off Levophed, hemodynamically stable. No daily CXR. Continue antibiotics Monitor WBC Tube feeds via NGT for nutritional support Consult GI for PEG tube. Increased trach secretions Will consider bronchoscopy if persists. Pt is not tolerating taper of sedation Continue daily SBT/LAINE CPAP with PS 8, PEEP of 5 OK to increase PS to max 20 cmH2O to achieve tidal volume 450-550 mL Recommend transfer to LTAC for ongoing liberation from mechanical ventilator. Remove trach sutures 7 to 10 days post trach 09/24/24 - S/p therapeutic bronchoscopy with clearing of secretions/mucous plugging from L1-L3 and R1-R3 and R6-R10. 09/18/24 - S/p therapeutic bronchoscopy w/ RLL BAL. Mucous plugging cleared from L1-L3 and L6-L10 and R1-R3 and R6-R10 See separate procedure note for details 09/16/24 - S/p bronchoscopy w/ bronchoalveolar lavage, removed copious mucous plugs from RUL/RLL + FROYLAN. See separate procedure note for details. Labs and imaging reviewed. Rest of plan as noted below. Plan: s/p intubation, on mechanical ventilator On AC mode with RR 20, VT 500, PEEP 8, FIO2 40% Taper FiO2 as tolerated S/p trach Trach care Sedated for vent synchrony Bronchodilators Steroids - completed Pressors as necessary for hemodynamic support. Titrate to keep MAP above 65 mmHg/SBP above 90 mmHg. F/u Echo to evaluate LVEF, RVSP and r/o valvular dysfunction. Cardiology recommendations appreciated Antibiotics F/u cultures. Monitor renal function due to Acute kidney injury. Monitor electrolytes. Supplement as necessary. Nutritional support. Accu-Cheks, ISS. Morbid obesity, complicates all care. Diet and lifestyle modifications for weight reduction recommended. GI/DVT prophylaxis. Condition: Critical Prognosis: Poor given multiple comorbidities. Rest of plan per hospitalist and other consultants. A total of 35 minutes of critical care time was spent reviewing the patient record, examining the patient, making a diagnostic and therapeutic plan, discussing this plan with the medical personnel, following up on diagnostic studies and following the patient for clinical stability excluding any and all procedures. At least 50% of this time was spent in direct, [id number] contact. Thank you ANAHI Montoya for allowing me to participate in this patient's care. Further recommendations will depend on patient's clinical course. Please do not hesitate to contact me if you have any questions or concerns. This medical document was created using an electronic medical record system with [employer] dictation system. Although this document has been carefully reviewed, there may still be some phonetic and typographical errors. These areas are purely typographical due to imperfections of the software programs, and do not reflect any compromise in the patient's medical care. Dietary Evaluation Review Recommendations by RD: Increase Calorie Intake Comments: 1. Increase TF as tolerated to goal rate to 50 mL/hr.Goal rate will provide ~ 87 daily estimated energy needs and ~60% daily estimated protein needs. 2. Advance to CCHO 60g diet pending CONFLICTS ANALYST approval when medically feasible. 3. Continue to monitor patient's weight and labs. Expected Outcomes/Goals: 1. labs to improve 2. diet to advance 3. continue plan of care 4. f/u in 2-3 days Plan discussed with: Other (FERNANDO Dyson) Critical Care Time(min): 35 LIZ GUDINO MD Oct 10, 2024 22:53
[2024-10-11] VITALS (104 sets, daily range): BP systolic 85–143; BP diastolic 37–89; PULSE 60–146; RESP 15–27; TEMP 97.2–99.9; O2SAT 91–100
[2024-10-11 04:14] LABS: Basophils # (auto) 0.1 10 ^3/uL (0-0.2); Basophils % (auto) 0.7 % (0.0-2.0); Eosinophils # (auto) 0.2 10 ^3/uL (0-0.8); Eosinophils % (auto) 1.7 % (0.0-7.0); Hematocrit 42.7 % (41.0-53.0); Hemoglobin 13.7 g/dL (13.5-17.5); Lymphocytes % (auto) 24.6 % (10.0-50.0); Mean Corpuscular Hemoglobin 29.6 pg (28.0-32.0); Mean Corpuscular Hgb Conc. 32.1 g/dL (32.0-36.0); Mean Corpuscular Volume 92.4 fL (80.0-100.0); Monocytes # (auto) 1.1 10 ^3/uL (0-1.3); Monocytes % (auto) 8.7 % (0.0-12.0); Neutrophils # (auto) 7.8 10 ^3/uL (1.6-8.6); Neutrophils % (auto) 64.3 % (37.0-80.0); Platelet Count (auto) 334 10^3/uL (140-450); Red Blood Cells 4.62 10^6/uL (4.5-5.90); Red Cell Distribution Width 13.7 % (11.8-14.3); White Blood Cell 12.1 10^3/uL (4.4-10.8)
[2024-10-11 04:24] LABS: Chloride 103 mmol/L (98-107); Potassium 4.1 mmol/L (3.5-5.1)
[2024-10-11 04:25] LABS: Anion Gap 9 (5-15); Carbon Dioxide 24 mmol/L (20-31)
[2024-10-11 04:30] LABS: Glucose 90 mg/dL (74-106)
[2024-10-11 04:41] LABS: BUN/Creatinine Ratio 8.6 (10.0-20.0); Blood Urea Nitrogen < 5 mg/dL (9-23); Calcium 10.8 mg/dL (8.7-10.4); Sodium 136 mmol/L (136-145)
--- NOTE | 2024-10-11 05:15 | DVH ---
CHEST RADIOGRAPH Indication: pna Technique: Single frontal view of the chest was obtained COMPARISON: XY CHEST PORTABLE on DOS: 10/10/24, XY CHEST XRAY 1 VIEW on DOS: 10/08/24, XY CHEST PORTABLE on DOS: 10/06/24, XY CHEST XRAY 1 VIEW on DOS: 10/05/24, XY CHEST XRAY 1 VIEW on DOS: 10/03/24 FINDINGS: Lines and Tubes: Tracheostomy, enteric catheter and right PICC in satisfactory position. Lungs: Low lung volumes. Patchy bilateral airspace disease. Pleura: No effusion. No pneumothorax. Cardiomediastinal contours: Cardiomegaly Bones: Unremarkable IMPRESSION: Lines and tubes in satisfactory position. No significant interval change.
--- NOTE | 2024-10-11 07:41 | DVHPN2 ---
Subjective Intubated and chemically sedated. Reviewed: Care Plan, H&P, Labs, Medications, Previous Orders, Radiology, Other (Consultations) Changes from previous H/P or p: No Changes General: Per HPI Objective Vitals Vital Signs Date Time Temp Pulse Resp B/P (MAP) Pulse Ox O2 Delivery O2 Flow Rate FiO2 10/11/24 06:00 40 10/11/24 06:00 75 10/11/24 05:46 20 99/46 (63) 95 10/11/24 05:15 99.3 210.7 10/10/24 20:00 Mechanical Ventilator+ Intake/Output Intake and Output 10/11/24 07:00 Intake Total 1249.460 ml Output Total 1475 ml Balance -225.540 ml IV Total 800.460 ml Tube Feeding 49 ml Other 400 ml Output Urine Total 1475 ml General Appearance: Alert, Other (Following some commands) HEENT: Atraumatic, PERRLA, Other (Tracheostomy in place with no drainage/discharge/bleeding) Neck: Other (Trach) Lungs: Other (Mechanical ventilation sounds) Cardiovascular: Regular rate, Normal S1, Normal S2 Abdomen: Normal bowel sounds, Soft Genitourinary: Other (Spence's catheter) Musculoskeletal: Weak motor strength RUE, Weak motor strength LUE Extremities: Other (1+ bilateral lower extremities edema) Neuro: Other (Sedated) Skin: Dry, Intact Psych/Mental Status: Other (Sedated) Medications Current Medications Medications Dose Ordered Sig/Felicitas Route Start Time Stop Time Status Last Admin Dose Admin Ondansetron HCl 4 mg Q4HP PRN IV 09/01/24 10:30 Nitroglycerin 0.4 mg Q5MINP PRN SL 09/01/24 10:30 Piperacillin Sod/ Tazobactam Sod 100 ml @ 25 mls/hr Q6HR IV 09/01/24 18:00 UNV Acetaminophen 650 mg Q6HP PRN PO 09/09/24 10:45 10/10/24 22:30 650 MG Diagnostic Test (Pha) 1 strip Q6HR 09/10/24 12:00 10/11/24 06:00 1 STRIP Dextrose 50 ml UD PRN IV 09/10/24 08:15 Cancel Ipratropium [place] 0.5 mg Q6HR NEB 09/13/24 12:00 10/11/24 05:46 0.5 MG Levalbuterol HCl 1.25 mg Q6HR NEB 09/13/24 12:00 10/11/24 05:46 1.25 MG Lorazepam 0.5 mg Q8HP PRN IV 09/15/24 13:15 09/15/24 20:27 0.5 MG Midazolam HCl 50 ml @ 1 mls/hr Q24H IV 09/16/24 09:00 10/10/24 22:20 2 MLS/HR Fentanyl Citrate 250 ml @ 2.5 mls/hr Q24H IV 09/16/24 09:00 10/11/24 04:37 17.5 MLS/HR Norepinephrine Bitartrate 32 mg/ Sodium Chloride 250 ml @ 0.938 mls/ hr Q24H IV 09/16/24 17:45 10/06/24 18:22 0.938 MLS/HR Sodium Chloride 10 ml QSHIFT@10,22 IV 09/23/24 22:00 10/10/24 22:30 10 ML Lactulose 30 ml BID GT 09/24/24 10:00 10/10/24 22:29 30 ML Doxycycline Hyclate 100 ml @ 50 mls/hr Q12HR IV 09/27/24 09:15 10/10/24 22:30 50 MLS/HR Purified Water 100 ml Q6HR GT 09/28/24 12:00 10/11/24 06:00 100 ML Insulin Glargine 12 units DAILY@1000 SC 09/28/24 10:00 10/10/24 10:36 12 UNITS Insulin Human Regular Q6HR SC 09/28/24 12:00 10/04/24 18:17 2 UNITS Dextrose 50 ml UD PRN IV 09/28/24 09:00 Glycopyrrolate 0.2 mg Q12HP IV 09/28/24 10:00 10/10/24 22:29 0.2 MG Metoclopramide HCl 5 mg Q8HP PRN GT 09/29/24 07:30 Propofol 100 ml @ 3.768 mls/ hr Q24H IV 10/03/24 12:00 10/10/24 19:38 7.536 MLS/HR Enteral Nutritional Formula 1,000 ml 50ML/HR GT 10/04/24 14:00 10/08/24 05:47 1,000 ML Risperidone 2 mg BID PO 10/04/24 22:00 10/10/24 22:30 2 MG Mupirocin 1 applic BID EACHNOSTRI 10/08/24 22:00 10/13/24 21:59 10/10/24 22:36 1 APPLIC Laboratory Results Laboratory Tests 10/11/24 03:58 Chemistry Test 10/11/24 03:58 Calcium Level 10.8 mg/dL (8.7-10.4) H Microbiology Microbiology Date/Time Source Procedure Growth Status 10/08/24 11:05 Trachea Gram Stain - Final Resulted 10/08/24 11:05 Trachea Respiratory Culture - Preliminary Resulted 09/27/24 08:20 Sputum Gram Stain - Final Complete 09/27/24 08:20 Respiratory Culture - Final Methicillin Resistant S.aureus Complete 09/26/24 15:13 Urine - [place] Urine Culture - Final Complete 09/26/24 13:06 Blood Blood Culture - Final NO GROWTH AFTER 5 DAYS OF INCUBATION. Complete Labs and/or images reviewed: Labs reviewed by me, Image(s) reviewed by me Assessment/Plan Assessment/Plan Impression: -acute hypoxic and hypercarbic respiratory failure with failure of noninvasive positive pressure ventilation -community-acquired pneumonia, MRSA -morbid obesity -nicotine dependence -sepsis -history of schizophrenia -NSTEMI type 2 -Tracheostomy -septic shock -diabetes mellitus Plan: Events: Awaiting for transfer to LTACH. Patient opening eyes and following some commands. Awaiting LTAC transfer. Hold off on PEG tube, given patient has good probability of transitioning from mechanical ventilation for swallow evaluation. No change in assessment plan on 10/11/2024 -continue tube feeding -Continue Bowel Regimen -continue regular insulin sliding scale, Lantus 12 units daily -pulmonology consultation: Recommendations reviewed -Continue doxy. Reassess for discontinuation after sputum results -continue DVT prophylaxis -PUD prophylaxis -continue bronchodilators, Pulmicort, Mucomyst Critical care time spent with patient discussing and formulating plan of care: 40 minutes. This does not include time spent performing procedures. This medical document was created using an electronic medical record system with [employer] system. Although this document has been carefully reviewed, there may still be some phonetic and typographical errors. These areas are purely typographical due to imperfections of the software programs, and do not reflect any compromise in the patient's medical care. Plan discussed with: Patient, Other (RN) My Orders Orders - ZUHAIR GUILLORY NP Procedure Category Date Status Time Chest Portable XY 10/10/24 Resulted 17:35 Date of Service: Oct 11, 2024 Billing Provider: ZUHAIR GUILLORY NP Common Visit Codes: [id number] CARE 30-74 MIN ZUHAIR GUILLORY NP Oct 11, 2024 07:41
[2024-10-11 21:37] LABS: Base Excess -2.7 mmol/L (-2.0-3.0)
--- NOTE | 2024-10-11 22:20 | DVHPN2 ---
Progress Note - Dictate Date Seen: Oct 11, 2024 Medical Necessity Reason Pt with a Central, PICC or Fol: Yes The following are medically ne: Teague Catheter Reason for teague catheter: Strict I&O Subjective Patient seen and examined at bedside. Sedated, on mechanical ventilator. s/p trach Overnight events reviewed. vital signs Vital Sign Date Time Temp Pulse Resp B/P (MAP) Pulse Ox O2 Delivery O2 Flow Rate FiO2 10/11/24 20:23 76 16 85/37 (53) 96 35 10/11/24 20:00 Mechanical Ventilator+ 10/11/24 18:31 99.9 211.8 Total Intake and Output 10/10/24 10/10/24 10/11/24 15:00 23:00 07:00 Intake Total 261.916 ml 432.756 ml 577.324 ml Output Total 850 ml 625 ml Balance 261.916 ml -417.244 ml -47.676 ml medications Current Medications Medications Dose Ordered Sig/Felicitas Route Start Time Stop Time Status Last Admin Dose Admin Ondansetron HCl 4 mg Q4HP PRN IV 09/01/24 10:30 Nitroglycerin 0.4 mg Q5MINP PRN SL 09/01/24 10:30 Piperacillin Sod/ Tazobactam Sod 100 ml @ 25 mls/hr Q6HR IV 09/01/24 18:00 UNV Acetaminophen 650 mg Q6HP PRN PO 09/09/24 10:45 10/10/24 22:30 650 MG Diagnostic Test (Pha) 1 strip Q6HR 09/10/24 12:00 10/11/24 17:23 1 STRIP Dextrose 50 ml UD PRN IV 09/10/24 08:15 Cancel Ipratropium [place] 0.5 mg Q6HR NEB 09/13/24 12:00 10/11/24 18:21 0.5 MG Levalbuterol HCl 1.25 mg Q6HR NEB 09/13/24 12:00 10/11/24 18:21 1.25 MG Lorazepam 0.5 mg Q8HP PRN IV 09/15/24 13:15 10/11/24 10:05 0.5 MG Midazolam HCl 50 ml @ 1 mls/hr Q24H IV 09/16/24 09:00 10/10/24 22:20 2 MLS/HR Fentanyl Citrate 250 ml @ 2.5 mls/hr Q24H IV 09/16/24 09:00 10/11/24 16:07 20 MLS/HR Norepinephrine Bitartrate 32 mg/ Sodium Chloride 250 ml @ 0.938 mls/ hr Q24H IV 09/16/24 17:45 10/06/24 18:22 0.938 MLS/HR Sodium Chloride 10 ml QSHIFT@10,22 IV 09/23/24 22:00 10/11/24 09:54 10 ML Lactulose 30 ml BID GT 09/24/24 10:00 10/11/24 21:55 30 ML Doxycycline Hyclate 100 ml @ 50 mls/hr Q12HR IV 09/27/24 09:15 10/11/24 21:55 50 MLS/HR Purified Water 100 ml Q6HR GT 09/28/24 12:00 10/11/24 17:18 100 ML Insulin Glargine 12 units DAILY@1000 SC 09/28/24 10:00 10/11/24 09:57 12 UNITS Insulin Human Regular Q6HR SC 09/28/24 12:00 10/04/24 18:17 2 UNITS Dextrose 50 ml UD PRN IV 09/28/24 09:00 Glycopyrrolate 0.2 mg Q12HP IV 09/28/24 10:00 10/11/24 21:55 0.2 MG Metoclopramide HCl 5 mg Q8HP PRN GT 09/29/24 07:30 Propofol 100 ml @ 3.768 mls/ hr Q24H IV 10/03/24 12:00 10/11/24 19:28 26.376 MLS/HR Enteral Nutritional Formula 1,000 ml 50ML/HR GT 10/04/24 14:00 10/08/24 05:47 1,000 ML Risperidone 2 mg BID PO 10/04/24 22:00 10/11/24 21:55 2 MG Mupirocin 1 applic BID EACHNOSTRI 10/08/24 22:00 10/13/24 21:59 10/11/24 21:55 1 APPLIC objective Gen.: Patient lying in bed in medical ICU. Sedated, on mechanical ventilator. S/p Trach Head: Normocephalic, atraumatic. Eyes: PERRLA. Ears: Normal external anatomy. Throat: Endotracheal tube and orogastric tube in place. Neck: Trach in place. Chest: Transmitted breath sounds bilaterally. Decreased air entry bilaterally. No wheezing. Bibasilar crackles. Cardiovascular: Positive S1, positive S2. Regular rate and rhythm. Abdomen: Positive bowel sounds in all 4 quadrants. Soft, nontender, nondistended. : Teague in place. Normal external genitalia. Rectal: Deferred. Skin: Warm, dry. Intact. Extremities: 2+ radial pulses bilaterally. No lower extremity edema. Neuro: Sedated. laboratory and microbiology Laboratory Tests 10/11/24 03:58 Test 10/11/24 03:58 Range/Units Serum Glucose 90 74-106 mg/dL Assessment/Plan Impression: Acute hypoxic respiratory failure Acute hypercarbic respiratory failure On mechanical ventilator Pleural effusions Atelectasis Morbid obesity with a BMI of 44.8 Pulmonary edema Acute exacerbation of COPD vs Asthma Elevated troponin Events: Remains on vent support On AC mode with RR 20, VT 500, PEEP 5, FIO2 35% S/p trach Trach care Sedated on Propofol, Versed. Fentanyl Off pressors, hemodynamically stable. No daily CXR. Continue antibiotics Monitor WBC Continue antifungals Tube feeds via NGT for nutritional support Consult GI for PEG tube. Increased trach secretions Will consider bronchoscopy if persists. Patient was agitated during the daytime and he was re-sedated. Continue daily SBT/LAINE CPAP with PS 8, PEEP of 5 OK to increase PS to max 20 cmH2O to achieve tidal volume 450-550 mL Recommend transfer to LTAC for ongoing liberation from mechanical ventilator. Remove trach sutures 7 to 10 days post trach 09/24/24 - S/p therapeutic bronchoscopy with clearing of secretions/mucous plugging from L1-L3 and R1-R3 and R6-R10. 09/18/24 - S/p therapeutic bronchoscopy w/ RLL BAL. Mucous plugging cleared from L1-L3 and L6-L10 and R1-R3 and R6-R10 See separate procedure note for details 09/16/24 - S/p bronchoscopy w/ bronchoalveolar lavage, removed copious mucous plugs from RUL/RLL + FROYLAN. See separate procedure note for details. Labs and imaging reviewed. Rest of plan as noted below. Plan: s/p intubation, on mechanical ventilator On AC mode with RR 20, VT 500, PEEP 5, FIO2 35% Taper FiO2 as tolerated S/p trach Trach care Sedated for vent synchrony Bronchodilators Steroids - completed Pressors as necessary for hemodynamic support. Titrate to keep MAP above 65 mmHg/SBP above 90 mmHg. F/u Echo to evaluate LVEF, RVSP and r/o valvular dysfunction. Cardiology recommendations appreciated Antibiotics F/u cultures. Monitor renal function due to Acute kidney injury. Monitor electrolytes. Supplement as necessary. Nutritional support. Accu-Cheks, ISS. Morbid obesity, complicates all care. Diet and lifestyle modifications for weight reduction recommended. GI/DVT prophylaxis. Condition: Critical Prognosis: Poor given multiple comorbidities. Rest of plan per hospitalist and other consultants. A total of 35 minutes of critical care time was spent reviewing the patient record, examining the patient, making a diagnostic and therapeutic plan, discussing this plan with the medical personnel, following up on diagnostic studies and following the patient for clinical stability excluding any and all procedures. At least 50% of this time was spent in direct, [id number] contact. Thank you ANAHI Montoya for allowing me to participate in this patient's care. Further recommendations will depend on patient's clinical course. Please do not hesitate to contact me if you have any questions or concerns. This medical document was created using an electronic medical record system with [employer] dictation system. Although this document has been carefully reviewed, there may still be some phonetic and typographical errors. These areas are purely typographical due to imperfections of the software programs, and do not reflect any compromise in the patient's medical care. Dietary Evaluation Review Recommendations by RD: Increase Calorie Intake Comments: 1. Increase TF as tolerated to goal rate to 50 mL/hr.Goal rate will provide ~ 87 daily estimated energy needs and ~60% daily estimated protein needs. 2. Advance to CCHO 60g diet pending TAX CONSULTANT approval when medically feasible. 3. Continue to monitor patient's weight and labs. Expected Outcomes/Goals: 1. labs to improve 2. diet to advance 3. continue plan of care 4. f/u in 2-3 days Plan discussed with: Other (FERNANDO Rogers) Critical Care Time(min): 35 LIZ GUDINO MD Oct 11, 2024 22:20
[2024-10-12] VITALS (106 sets, daily range): BP systolic 87–144; BP diastolic 38–73; PULSE 66–139; RESP 14–33; TEMP 97.5–100.4; O2SAT 88–100
--- NOTE | 2024-10-12 04:18 | DVH ---
CHEST RADIOGRAPH Indication: PNA Technique: Single frontal view of the chest was obtained Comparison: XY CHEST PORTABLE on DOS: 10/11/24 FINDINGS: Lines and Tubes: Tracheostomy tube in place. The enteric tube courses below the left hemidiaphragm an d the tip extends outside the field of view. Right PICC terminates in the superior vena cava. Lungs: Diffuse bilateral lung consolidation. Pleura: No effusion. No pneumothorax. Cardiomediastinal contours: Unremarkable Bones: No acute osseous abnormality. IMPRESSION: 1. Multifocal airspace disease suspicious for pneumonia.
[2024-10-12 04:19] LABS: Basophils # (auto) 0.1 10 ^3/uL (0-0.2); Basophils % (auto) 0.9 % (0.0-2.0); Eosinophils # (auto) 0.3 10 ^3/uL (0-0.8); Eosinophils % (auto) 2.7 % (0.0-7.0); Hematocrit 32.6 % (41.0-53.0); Hemoglobin 10.9 g/dL (13.5-17.5); Lymphocytes # (auto) 2.7 10 ^3/uL (0.4-5.4); Lymphocytes % (auto) 27.4 % (10.0-50.0); Mean Corpuscular Hemoglobin 30.1 pg (28.0-32.0); Mean Corpuscular Hgb Conc. 33.5 g/dL (32.0-36.0); Mean Corpuscular Volume 89.9 fL (80.0-100.0); Monocytes # (auto) 0.9 10 ^3/uL (0-1.3); Monocytes % (auto) 8.9 % (0.0-12.0); Neutrophils # (auto) 5.9 10 ^3/uL (1.6-8.6); Neutrophils % (auto) 60.1 % (37.0-80.0); Nucleated Red Blood Cells % 0.1 %; Platelet Count (auto) 350 10^3/uL (140-450); Red Blood Cells 3.62 10^6/uL (4.5-5.90); Red Cell Distribution Width 13.4 % (11.8-14.3); White Blood Cell 9.8 10^3/uL (4.4-10.8)
[2024-10-12 04:22] LABS: Chloride 105 mmol/L (98-107); Potassium 3.6 mmol/L (3.5-5.1); Sodium 138 mmol/L (136-145)
[2024-10-12 04:23] LABS: Anion Gap 10 (5-15); Carbon Dioxide 23 mmol/L (20-31)
[2024-10-12 04:24] LABS: Calcium 9.7 mg/dL (8.7-10.4)
[2024-10-12 04:28] LABS: Glucose 85 mg/dL (74-106)
[2024-10-12 04:39] LABS: BUN/Creatinine Ratio 10.2 (10.0-20.0); Blood Urea Nitrogen < 5 mg/dL (9-23)
[2024-10-12] MEDS: CATHFLO ACTIVASE (ALTEPLASE) 2 MG VIAL IV ONE (08:50)
--- NOTE | 2024-10-12 09:06 | DVHPN2 ---
Subjective Intubated and chemically sedated. Reviewed: Care Plan, H&P, Labs, Medications, Previous Orders, Radiology, Other (Consultations) Changes from previous H/P or p: No Changes General: Per HPI Objective Vitals Vital Signs Date Time Temp Pulse Resp B/P (MAP) Pulse Ox O2 Delivery O2 Flow Rate FiO2 10/12/24 08:14 82 16 90/42 (58) 92 35 10/12/24 07:16 98.4 209.1 10/11/24 20:00 Mechanical Ventilator+ Intake/Output Intake and Output 10/12/24 07:00 Intake Total 1826.732 ml Output Total 1600 ml Balance 226.732 ml Intake Oral 520 ml IV Total 1146.732 ml Tube Feeding 160 ml Output Urine Total 1600 ml General Appearance: Alert, Other (Following some commands) HEENT: Atraumatic, PERRLA, Other (Tracheostomy in place with no drainage/discharge/bleeding) Neck: Other (Trach) Lungs: Other (Mechanical ventilation sounds) Cardiovascular: Regular rate, Normal S1, Normal S2 Abdomen: Normal bowel sounds, Soft Genitourinary: Other (Spence's catheter) Musculoskeletal: Weak motor strength RUE, Weak motor strength LUE Extremities: Other (1+ bilateral lower extremities edema) Neuro: Cranial nerves 3-12 NL, Other (Sedated) Skin: Dry, Intact Psych/Mental Status: Other (Sedated) Medications Current Medications Medications Dose Ordered Sig/Felicitas Route Start Time Stop Time Status Last Admin Dose Admin Ondansetron HCl 4 mg Q4HP PRN IV 09/01/24 10:30 Nitroglycerin 0.4 mg Q5MINP PRN SL 09/01/24 10:30 Piperacillin Sod/ Tazobactam Sod 100 ml @ 25 mls/hr Q6HR IV 09/01/24 18:00 UNV Acetaminophen 650 mg Q6HP PRN PO 09/09/24 10:45 10/10/24 22:30 650 MG Diagnostic Test (Pha) 1 strip Q6HR 09/10/24 12:00 10/12/24 05:44 1 STRIP Dextrose 50 ml UD PRN IV 09/10/24 08:15 Cancel Ipratropium [place] 0.5 mg Q6HR NEB 09/13/24 12:00 10/12/24 06:10 0.5 MG Levalbuterol HCl 1.25 mg Q6HR NEB 09/13/24 12:00 10/12/24 06:10 1.25 MG Lorazepam 0.5 mg Q8HP PRN IV 09/15/24 13:15 10/11/24 10:05 0.5 MG Midazolam HCl 50 ml @ 1 mls/hr Q24H IV 09/16/24 09:00 10/12/24 03:27 2 MLS/HR Fentanyl Citrate 250 ml @ 2.5 mls/hr Q24H IV 09/16/24 09:00 10/12/24 03:28 17.5 MLS/HR Norepinephrine Bitartrate 32 mg/ Sodium Chloride 250 ml @ 0.938 mls/ hr Q24H IV 09/16/24 17:45 10/06/24 18:22 0.938 MLS/HR Sodium Chloride 10 ml QSHIFT@10,22 IV 09/23/24 22:00 10/11/24 22:00 10 ML Lactulose 30 ml BID GT 09/24/24 10:00 10/11/24 21:55 30 ML Doxycycline Hyclate 100 ml @ 50 mls/hr Q12HR IV 09/27/24 09:15 10/11/24 21:55 50 MLS/HR Purified Water 100 ml Q6HR GT 09/28/24 12:00 10/12/24 05:44 100 ML Insulin Glargine 12 units DAILY@1000 SC 09/28/24 10:00 10/11/24 09:57 12 UNITS Insulin Human Regular Q6HR SC 09/28/24 12:00 10/04/24 18:17 2 UNITS Dextrose 50 ml UD PRN IV 09/28/24 09:00 Glycopyrrolate 0.2 mg Q12HP IV 09/28/24 10:00 10/11/24 21:55 0.2 MG Metoclopramide HCl 5 mg Q8HP PRN GT 09/29/24 07:30 Propofol 100 ml @ 3.768 mls/ hr Q24H IV 10/03/24 12:00 10/12/24 07:38 26.376 MLS/HR Enteral Nutritional Formula 1,000 ml 50ML/HR GT 10/04/24 14:00 10/08/24 05:47 1,000 ML Risperidone 2 mg BID PO 10/04/24 22:00 10/11/24 21:55 2 MG Mupirocin 1 applic BID EACHNOSTRI 10/08/24 22:00 10/13/24 21:59 10/11/24 21:55 1 APPLIC Laboratory Results Laboratory Tests 10/12/24 03:51 Chemistry Test 10/12/24 03:51 Calcium Level 9.7 mg/dL (8.7-10.4) Blood Gas Results Test 10/11/24 21:30 Arterial Blood pH 7.425 (7.350-7.450) FiO2 % 35.0 Microbiology Microbiology Date/Time Source Procedure Growth Status 10/08/24 11:05 Trachea Gram Stain - Final Complete 10/08/24 11:05 Trachea Respiratory Culture - Final Complete 09/27/24 08:20 Sputum Gram Stain - Final Complete 09/27/24 08:20 Respiratory Culture - Final Methicillin Resistant S.aureus Complete 09/26/24 15:13 Urine - [place] Urine Culture - Final Complete 09/26/24 13:06 Blood Blood Culture - Final NO GROWTH AFTER 5 DAYS OF INCUBATION. Complete Labs and/or images reviewed: Labs reviewed by me, Image(s) reviewed by me Assessment/Plan Assessment/Plan Impression: -acute hypoxic and hypercarbic respiratory failure with failure of noninvasive positive pressure ventilation -community-acquired pneumonia, MRSA -morbid obesity -nicotine dependence -sepsis -history of schizophrenia -NSTEMI type 2 -Tracheostomy -septic shock -diabetes mellitus Plan: Events: Awaiting for transfer to LTACH. CPAP trial per pulmonology. -continue tube feeding -Continue Bowel Regimen -continue regular insulin sliding scale, Lantus 12 units daily -pulmonology consultation: Recommendations reviewed -Continue doxy. Reassess for discontinuation after sputum results -continue DVT prophylaxis -PUD prophylaxis -continue bronchodilators, Pulmicort, Mucomyst Critical care time spent with patient discussing and formulating plan of care: 40 minutes. This does not include time spent performing procedures. This medical document was created using an electronic medical record system with [employer] system. Although this document has been carefully reviewed, there may still be some phonetic and typographical errors. These areas are purely typographical due to imperfections of the software programs, and do not reflect any compromise in the patient's medical care. Plan discussed with: Patient, Other (RN) My Orders Orders - ZUHAIR GUILLORY NP Procedure Category Date Status Time Chest Portable XY 10/12/24 Resulted 04:00 Date of Service: Oct 12, 2024 Billing Provider: ZUHAIR GUILLORY NP Common Visit Codes: 20029-[id number] CARE 30-74 MIN ZUHAIR GUILLORY NP Oct 12, 2024 09:06
--- NOTE | 2024-10-12 23:06 | DVHPN2 ---
Progress Note - Dictate Date Seen: Oct 12, 2024 Medical Necessity Reason Pt with a Central, PICC or Fol: Yes The following are medically ne: Teague Catheter Reason for teague catheter: Strict I&O Subjective Patient seen and examined at bedside. Sedated, on mechanical ventilator. s/p trach Overnight events reviewed. vital signs Vital Sign Date Time Temp Pulse Resp B/P (MAP) Pulse Ox O2 Delivery O2 Flow Rate FiO2 10/12/24 21:56 80 17 89/45 (60) 97 35 10/12/24 20:00 Mechanical Ventilator+ 10/12/24 18:45 99.5 211.1 Total Intake and Output 10/11/24 10/11/24 10/12/24 15:00 23:00 07:00 Intake Total 377.844 ml 715.864 ml 733.024 ml Output Total 500 ml 1100 ml Balance 377.844 ml 215.864 ml -366.976 ml medications Current Medications Medications Dose Ordered Sig/Felicitas Route Start Time Stop Time Status Last Admin Dose Admin Ondansetron HCl 4 mg Q4HP PRN IV 09/01/24 10:30 Nitroglycerin 0.4 mg Q5MINP PRN SL 09/01/24 10:30 Piperacillin Sod/ Tazobactam Sod 100 ml @ 25 mls/hr Q6HR IV 09/01/24 18:00 UNV Acetaminophen 650 mg Q6HP PRN PO 09/09/24 10:45 10/12/24 15:35 650 MG Diagnostic Test (Pha) 1 strip Q6HR 09/10/24 12:00 10/12/24 17:42 1 STRIP Dextrose 50 ml UD PRN IV 09/10/24 08:15 Cancel Ipratropium [place] 0.5 mg Q6HR NEB 09/13/24 12:00 10/12/24 18:06 0.5 MG Levalbuterol HCl 1.25 mg Q6HR NEB 09/13/24 12:00 10/12/24 18:06 1.25 MG Lorazepam 0.5 mg Q8HP PRN IV 09/15/24 13:15 10/11/24 10:05 0.5 MG Midazolam HCl 50 ml @ 1 mls/hr Q24H IV 09/16/24 09:00 10/12/24 18:22 3 MLS/HR Fentanyl Citrate 250 ml @ 2.5 mls/hr Q24H IV 09/16/24 09:00 10/12/24 13:36 17.5 MLS/HR Norepinephrine Bitartrate 32 mg/ Sodium Chloride 250 ml @ 0.938 mls/ hr Q24H IV 09/16/24 17:45 10/06/24 18:22 0.938 MLS/HR Sodium Chloride 10 ml QSHIFT@10,22 IV 09/23/24 22:00 10/12/24 22:15 10 ML Lactulose 30 ml BID GT 09/24/24 10:00 10/12/24 22:14 30 ML Doxycycline Hyclate 100 ml @ 50 mls/hr Q12HR IV 09/27/24 09:15 10/12/24 22:14 50 MLS/HR Purified Water 100 ml Q6HR GT 09/28/24 12:00 10/12/24 17:42 100 ML Insulin Glargine 12 units DAILY@1000 SC 09/28/24 10:00 10/11/24 09:57 12 UNITS Insulin Human Regular Q6HR SC 09/28/24 12:00 10/04/24 18:17 2 UNITS Dextrose 50 ml UD PRN IV 09/28/24 09:00 Glycopyrrolate 0.2 mg Q12HP IV 09/28/24 10:00 10/12/24 22:14 0.2 MG Metoclopramide HCl 5 mg Q8HP PRN GT 09/29/24 07:30 Propofol 100 ml @ 3.768 mls/ hr Q24H IV 10/03/24 12:00 10/12/24 20:26 26.376 MLS/HR Enteral Nutritional Formula 1,000 ml 50ML/HR GT 10/04/24 14:00 10/08/24 05:47 1,000 ML Risperidone 2 mg BID PO 10/04/24 22:00 10/12/24 22:14 2 MG Mupirocin 1 applic BID EACHNOSTRI 10/08/24 22:00 10/13/24 21:59 10/12/24 22:15 1 APPLIC objective Gen.: Patient lying in bed in medical ICU. Sedated, on mechanical ventilator. S/p Trach Head: Normocephalic, atraumatic. Eyes: PERRLA. Ears: Normal external anatomy. Throat: Endotracheal tube and orogastric tube in place. Neck: Trach in place. Chest: Transmitted breath sounds bilaterally. Decreased air entry bilaterally. No wheezing. Bibasilar crackles. Cardiovascular: Positive S1, positive S2. Regular rate and rhythm. Abdomen: Positive bowel sounds in all 4 quadrants. Soft, nontender, nondistended. : Teague in place. Normal external genitalia. Rectal: Deferred. Skin: Warm, dry. Intact. Extremities: 2+ radial pulses bilaterally. No lower extremity edema. Neuro: Sedated. laboratory and microbiology Laboratory Tests 10/12/24 03:51 Test 10/12/24 03:51 Range/Units Serum Glucose 85 74-106 mg/dL Assessment/Plan Impression: Acute hypoxic respiratory failure Acute hypercarbic respiratory failure On mechanical ventilator Pleural effusions Atelectasis Morbid obesity with a BMI of 44.8 Pulmonary edema Acute exacerbation of COPD vs Asthma Elevated troponin Events: Remains on vent support On AC mode with RR 20 -->16, VT 500 -->550, PEEP 5, FIO2 35% S/p trach Trach care Sedated on Propofol, Versed. Fentanyl Off pressors, hemodynamically stable. No daily CXR. Continue antibiotics Monitor WBC Tube feeds via NGT for nutritional support Consult GI for PEG tube. Continue daily SBT/LAINE CPAP with PS 12, PEEP of 5, FiO2 35% OK to increase PS to max 20 cmH2O to achieve tidal volume 450-550 mL Recommend transfer to LTAC for ongoing liberation from mechanical ventilator. Remove trach sutures 7 to 10 days post trach 09/24/24 - S/p therapeutic bronchoscopy with clearing of secretions/mucous plugging from L1-L3 and R1-R3 and R6-R10. 09/18/24 - S/p therapeutic bronchoscopy w/ RLL BAL. Mucous plugging cleared from L1-L3 and L6-L10 and R1-R3 and R6-R10 See separate procedure note for details 09/16/24 - S/p bronchoscopy w/ bronchoalveolar lavage, removed copious mucous plugs from RUL/RLL + FROYLAN. See separate procedure note for details. Labs and imaging reviewed. Rest of plan as noted below. Plan: s/p intubation, on mechanical ventilator On AC mode with RR 16, VT 550, PEEP 5, FIO2 35% Taper FiO2 as tolerated S/p trach Trach care Sedated for vent synchrony Bronchodilators Steroids - completed Pressors as necessary for hemodynamic support. Titrate to keep MAP above 65 mmHg/SBP above 90 mmHg. F/u Echo to evaluate LVEF, RVSP and r/o valvular dysfunction. Cardiology recommendations appreciated Antibiotics F/u cultures. Monitor renal function due to Acute kidney injury. Monitor electrolytes. Supplement as necessary. Nutritional support. Accu-Cheks, ISS. Morbid obesity, complicates all care. Diet and lifestyle modifications for weight reduction recommended. GI/DVT prophylaxis. Condition: Critical Prognosis: Poor given multiple comorbidities. Rest of plan per hospitalist and other consultants. A total of 35 minutes of critical care time was spent reviewing the patient record, examining the patient, making a diagnostic and therapeutic plan, discussing this plan with the medical personnel, following up on diagnostic studies and following the patient for clinical stability excluding any and all procedures. At least 50% of this time was spent in direct, [id number] contact. Thank you ANAHI Montoya for allowing me to participate in this patient's care. Further recommendations will depend on patient's clinical course. Please do not hesitate to contact me if you have any questions or concerns. This medical document was created using an electronic medical record system with [employer] dictation system. Although this document has been carefully reviewed, there may still be some phonetic and typographical errors. These areas are purely typographical due to imperfections of the software programs, and do not reflect any compromise in the patient's medical care. Dietary Evaluation Review Recommendations by RD: Increase Calorie Intake Comments: 1. Increase TF as tolerated to goal rate to 50 mL/hr.Goal rate will provide ~ 87 daily estimated energy needs and ~60% daily estimated protein needs. 2. Advance to CCHO 60g diet pending BALL ROLLING MACHINE OPERATOR approval when medically feasible. 3. Continue to monitor patient's weight and labs. Expected Outcomes/Goals: 1. labs to improve 2. diet to advance 3. continue plan of care 4. f/u in 2-3 days Plan discussed with: Other (FERNANDO Cabrera) Critical Care Time(min): 35 LIZ GUDINO MD Oct 12, 2024 23:06
[2024-10-13] VITALS (71 sets, daily range): BP systolic 84–137; BP diastolic 39–81; PULSE 76–134; RESP 14–51; TEMP 99.1–100.9; O2SAT 86–99
[2024-10-13 07:25] LABS: Base Excess -2.9 mmol/L (-2.0-3.0)
--- NOTE | 2024-10-13 08:38 | DVHPN2 ---
Subjective Patient able to follow some commands. Reviewed: Care Plan, H&P, Labs, Medications, Previous Orders, Radiology, Other (Consultations) Changes from previous H/P or p: No Changes General: Per HPI Objective Vitals Vital Signs Date Time Temp Pulse Resp B/P (MAP) Pulse Ox O2 Delivery O2 Flow Rate FiO2 10/13/24 06:45 100.4 85 16 94/44 (61) 95 212.7 10/13/24 06:00 40 10/12/24 20:00 Mechanical Ventilator+ Intake/Output Intake and Output 10/13/24 07:00 Intake Total 1979.752 ml Output Total 1650 ml Balance 329.752 ml Intake Oral 500 ml IV Total 1179.752 ml Tube Feeding 300 ml Output Urine Total 1650 ml General Appearance: Alert, Cooperative HEENT: Atraumatic, PERRLA, Other (Tracheostomy in place with no drainage/discharge/bleeding) Neck: Other (Trach) Lungs: Other (Mechanical ventilation sounds) Cardiovascular: Regular rate, Normal S1, Normal S2 Abdomen: Normal bowel sounds, Soft Genitourinary: Other (Spence's catheter) Musculoskeletal: Weak motor strength RUE, Weak motor strength LUE Extremities: Other (1+ bilateral lower extremities edema) Neuro: Cranial nerves 3-12 NL, Other (Sedated) Skin: Dry, Intact Psych/Mental Status: Other (Sedated) Medications Current Medications Medications Dose Ordered Sig/Felicitas Route Start Time Stop Time Status Last Admin Dose Admin Ondansetron HCl 4 mg Q4HP PRN IV 09/01/24 10:30 Nitroglycerin 0.4 mg Q5MINP PRN SL 09/01/24 10:30 Piperacillin Sod/ Tazobactam Sod 100 ml @ 25 mls/hr Q6HR IV 09/01/24 18:00 UNV Acetaminophen 650 mg Q6HP PRN PO 09/09/24 10:45 10/13/24 05:09 650 MG Diagnostic Test (Pha) 1 strip Q6HR 09/10/24 12:00 10/13/24 06:32 1 STRIP Dextrose 50 ml UD PRN IV 09/10/24 08:15 Cancel Ipratropium [place] 0.5 mg Q6HR NEB 09/13/24 12:00 10/13/24 06:33 0.5 MG Levalbuterol HCl 1.25 mg Q6HR NEB 09/13/24 12:00 10/13/24 06:33 1.25 MG Lorazepam 0.5 mg Q8HP PRN IV 09/15/24 13:15 10/11/24 10:05 0.5 MG Midazolam HCl 50 ml @ 1 mls/hr Q24H IV 09/16/24 09:00 10/12/24 18:22 3 MLS/HR Fentanyl Citrate 250 ml @ 2.5 mls/hr Q24H IV 09/16/24 09:00 10/13/24 03:29 17.5 MLS/HR Norepinephrine Bitartrate 32 mg/ Sodium Chloride 250 ml @ 0.938 mls/ hr Q24H IV 09/16/24 17:45 10/06/24 18:22 0.938 MLS/HR Sodium Chloride 10 ml QSHIFT@10,22 IV 09/23/24 22:00 10/12/24 22:15 10 ML Lactulose 30 ml BID GT 09/24/24 10:00 10/12/24 22:14 30 ML Purified Water 100 ml Q6HR GT 09/28/24 12:00 10/13/24 06:30 100 ML Insulin Glargine 12 units DAILY@1000 SC 09/28/24 10:00 10/11/24 09:57 12 UNITS Insulin Human Regular Q6HR SC 09/28/24 12:00 10/04/24 18:17 2 UNITS Dextrose 50 ml UD PRN IV 09/28/24 09:00 Glycopyrrolate 0.2 mg Q12HP IV 09/28/24 10:00 10/12/24 22:14 0.2 MG Metoclopramide HCl 5 mg Q8HP PRN GT 09/29/24 07:30 Propofol 100 ml @ 3.768 mls/ hr Q24H IV 10/03/24 12:00 10/13/24 04:55 18.84 MLS/HR Enteral Nutritional Formula 1,000 ml 50ML/HR GT 10/04/24 14:00 10/08/24 05:47 1,000 ML Risperidone 2 mg BID PO 10/04/24 22:00 10/12/24 22:14 2 MG Mupirocin 1 applic BID EACHNOSTRI 10/08/24 22:00 10/13/24 21:59 10/12/24 22:15 1 APPLIC Laboratory Results Laboratory Tests 10/12/24 03:51 Blood Gas Results Test 10/13/24 07:21 Arterial Blood pH 7.387 (7.350-7.450) FiO2 % 40.0 Microbiology Microbiology Date/Time Source Procedure Growth Status 10/08/24 11:05 Trachea Gram Stain - Final Complete 10/08/24 11:05 Trachea Respiratory Culture - Final Complete 09/27/24 08:20 Sputum Gram Stain - Final Complete 09/27/24 08:20 Respiratory Culture - Final Methicillin Resistant S.aureus Complete 09/26/24 15:13 Urine - [place] Urine Culture - Final Complete 09/26/24 13:06 Blood Blood Culture - Final NO GROWTH AFTER 5 DAYS OF INCUBATION. Complete Labs and/or images reviewed: Labs reviewed by me, Image(s) reviewed by me Assessment/Plan Assessment/Plan Impression: -acute hypoxic and hypercarbic respiratory failure with failure of noninvasive positive pressure ventilation -community-acquired pneumonia, MRSA -morbid obesity -nicotine dependence -sepsis -history of schizophrenia -NSTEMI type 2 -Tracheostomy -septic shock -diabetes mellitus Plan: Events: Awaiting for transfer to LTACH. Daily weaning. Patient noted to be febrile, probably secondary to coming off sedation and patient on spontaneous breathing trial. Sputum culture negative for growth. Stop antibiotic therapy. -continue tube feeding, patient was not transfer, consider Dobbhoff placement -Continue Bowel Regimen -continue regular insulin sliding scale, Lantus 12 units daily -pulmonology consultation: Recommendations reviewed -continue DVT prophylaxis -PUD prophylaxis -continue bronchodilators, Pulmicort, Mucomyst Critical care time spent with patient discussing and formulating plan of care: 40 minutes. This does not include time spent performing procedures. This medical document was created using an electronic medical record system with [employer] dictation system. Although this document has been carefully reviewed, there may still be some phonetic and typographical errors. These areas are purely typographical due to imperfections of the software programs, and do not reflect any compromise in the patient's medical care. Plan discussed with: Patient, Other My Orders Orders - ZUHAIR GUILLORY NP Procedure Category Date Status Time Basic Metabolic Panel LAB 10/14/24 Verified 04:00 Complete Blood Count LAB 10/13/24 Logged 08:01 Cpap Trial For Am ORDERS 10/13/24 Transmitted 08:01 Cpap/Sed Vacation Med ORDERS 10/13/24 Transmitted Weaning 08:01 Date of Service: Oct 13, 2024 Billing Provider: ZUHAIR GUILLORY NP Common Visit Codes: [id number]-[id number] CARE 30-74 MIN ZUHAIR GUILLORY NP Oct 13, 2024 08:38
[2024-10-13 09:58] LABS: Basophils # (auto) 0.2 10 ^3/uL (0-0.2); Basophils % (auto) 0.9 % (0.0-2.0); Eosinophils # (auto) 0.7 10 ^3/uL (0-0.8); Eosinophils % (auto) 3.7 % (0.0-7.0); Hematocrit 36.6 % (41.0-53.0); Hemoglobin 12.2 g/dL (13.5-17.5); Lymphocytes # (auto) 1.6 10 ^3/uL (0.4-5.4); Lymphocytes % (auto) 8.8 % (10.0-50.0); Mean Corpuscular Hemoglobin 30.4 pg (28.0-32.0); Mean Corpuscular Hgb Conc. 33.3 g/dL (32.0-36.0); Mean Corpuscular Volume 91.5 fL (80.0-100.0); Monocytes % (auto) 5.6 % (0.0-12.0); Neutrophils # (auto) 14.4 10 ^3/uL (1.6-8.6); Nucleated Red Blood Cells % 0.2 %; Platelet Count (auto) 394 10^3/uL (140-450); Red Cell Distribution Width 13.4 % (11.8-14.3); White Blood Cell 17.8 10^3/uL (4.4-10.8)
--- NOTE | 2024-10-13 23:23 | DVHPN2 ---
Progress Note - Dictate Date Seen: Oct 13, 2024 Medical Necessity Reason Pt with a Central, PICC or Fol: Yes The following are medically ne: Teague Catheter Reason for teague catheter: Strict I&O Subjective Patient seen and examined at bedside. Sedated, on mechanical ventilator. s/p trach Overnight events reviewed. vital signs Vital Sign Date Time Temp Pulse Resp B/P (MAP) Pulse Ox O2 Delivery O2 Flow Rate FiO2 10/13/24 15:00 85 95 10/13/24 14:45 16 10/13/24 14:10 40 10/13/24 12:45 99.2 99.2 10/13/24 08:00 Mechanical Ventilator+ Total Intake and Output 10/12/24 10/12/24 10/13/24 15:00 23:00 07:00 Intake Total 440.740 ml 886.312 ml 692.04 ml Output Total 675 ml 975 ml Balance 440.740 ml 211.312 ml -282.96 ml medications Current Medications Medications Dose Ordered Sig/Felicitas Route Start Time Stop Time Status Last Admin Dose Admin Piperacillin Sod/ Tazobactam Sod 100 ml @ 25 mls/hr Q6HR IV 09/01/24 18:00 UNV Dextrose 50 ml UD PRN IV 09/10/24 08:15 Cancel objective Gen.: Patient lying in bed in medical ICU. Sedated, on mechanical ventilator. S/p Trach Head: Normocephalic, atraumatic. Eyes: PERRLA. Ears: Normal external anatomy. Throat: Endotracheal tube and orogastric tube in place. Neck: Trach in place. Chest: Transmitted breath sounds bilaterally. Decreased air entry bilaterally. No wheezing. Bibasilar crackles. Cardiovascular: Positive S1, positive S2. Regular rate and rhythm. Abdomen: Positive bowel sounds in all 4 quadrants. Soft, nontender, nondistended. : Teague in place. Normal external genitalia. Rectal: Deferred. Skin: Warm, dry. Intact. Extremities: 2+ radial pulses bilaterally. No lower extremity edema. Neuro: Sedated. laboratory and microbiology Laboratory Tests 10/13/24 09:39 10/12/24 03:51 Test 10/12/24 03:51 Range/Units Serum Glucose 85 74-106 mg/dL Assessment/Plan Impression: Acute hypoxic respiratory failure Acute hypercarbic respiratory failure On mechanical ventilator Pleural effusions Atelectasis Morbid obesity with a BMI of 44.8 Pulmonary edema Acute exacerbation of COPD vs Asthma Elevated troponin Events: S/p trach Trach care SBT/LAINE Patient tolerated 6 hours of CPAP last night Vent support On AC mode with RR 16, VT 500, PEEP 5, FIO2 40% Continue trach care Pulmonary toileting Sedated on Propofol, Versed. Fentanyl Off pressors, hemodynamically stable. No daily CXR. Continue antibiotics Monitor WBC Tube feeds via NGT for nutritional support Continue daily SBT/LAINE Plan for transfer to LTAC for ongoing liberation from mechanical ventilator. Remove trach sutures 7 to 10 days post trach 09/24/24 - S/p therapeutic bronchoscopy with clearing of secretions/mucous plugging from L1-L3 and R1-R3 and R6-R10. 09/18/24 - S/p therapeutic bronchoscopy w/ RLL BAL. Mucous plugging cleared from L1-L3 and L6-L10 and R1-R3 and R6-R10 See separate procedure note for details 09/16/24 - S/p bronchoscopy w/ bronchoalveolar lavage, removed copious mucous plugs from RUL/RLL + FROYLAN. See separate procedure note for details. Labs and imaging reviewed. Rest of plan as noted below. Plan: s/p intubation, on mechanical ventilator On AC mode with RR 16, VT 500, PEEP 5, FIO2 40% Taper FiO2 as tolerated S/p trach Trach care Sedated for vent synchrony Bronchodilators Steroids - completed Pressors as necessary for hemodynamic support. Titrate to keep MAP above 65 mmHg/SBP above 90 mmHg. F/u Echo to evaluate LVEF, RVSP and r/o valvular dysfunction. Cardiology recommendations appreciated Antibiotics F/u cultures. Monitor renal function due to Acute kidney injury. Monitor electrolytes. Supplement as necessary. Nutritional support. Accu-Cheks, ISS. Morbid obesity, complicates all care. Diet and lifestyle modifications for weight reduction recommended. GI/DVT prophylaxis. Condition: Critical Prognosis: Poor given multiple comorbidities. Rest of plan per hospitalist and other consultants. A total of 35 minutes of critical care time was spent reviewing the patient record, examining the patient, making a diagnostic and therapeutic plan, discussing this plan with the medical personnel, following up on diagnostic studies and following the patient for clinical stability excluding any and all procedures. At least 50% of this time was spent in direct, [id number] contact. Thank you ANAHI Montoya for allowing me to participate in this patient's care. Further recommendations will depend on patient's clinical course. Please do not hesitate to contact me if you have any questions or concerns. This medical document was created using an electronic medical record system with [employer] system. Although this document has been carefully reviewed, there may still be some phonetic and typographical errors. These areas are purely typographical due to imperfections of the software programs, and do not reflect any compromise in the patient's medical care. Dietary Evaluation Review Recommendations by RD: Increase Calorie Intake Comments: 1. Increase TF as tolerated to goal rate to 50 mL/hr.Goal rate will provide ~ 87 daily estimated energy needs and ~60% daily estimated protein needs. 2. Advance to CCHO 60g diet pending [employer] approval when medically feasible. 3. Continue to monitor patient's weight and labs. Expected Outcomes/Goals: 1. labs to improve 2. diet to advance 3. continue plan of care 4. f/u in 2-3 days Plan discussed with: Other (FERNANDO [facility]) Critical Care Time(min): 35 LIZ GUDINO MD Oct 13, 2024 23:23
== END 2024-10-13 15:38 | DRG 4 ==
LOC: ER 07:05 → EDBD 07:05 → TELE 10:18 → ICU WEST 09-05 23:52
PROVIDERS: ADMIT Internal Medicine; ATTEND Nurse Practitioner Acute Care
PROC: 5A1955Z Respiratory Ventilation, Greater than 96 Consecutive Hours (ICD-10-PCS; principal; 2024-09-01)
PROC: 0BH17EZ Insertion of Endotracheal Airway into Trachea, Via Natural or Artificial Opening (ICD-10-PCS; 2024-09-01)
PROC: 5A09357 Assistance with Respiratory Ventilation, Less than 24 Consecutive Hours, Continuous Positive Airway Pressure (ICD-10-PCS; 2024-09-01)
PROC: 0B9D8ZX Drainage of Right Middle Lung Lobe, Via Natural or Artificial Opening Endoscopic, Diagnostic (ICD-10-PCS; 2024-09-03)
PROC: 0B9J8ZX Drainage of Left Lower Lung Lobe, Via Natural or Artificial Opening Endoscopic, Diagnostic (ICD-10-PCS; 2024-09-07)
PROC: 0B9C8ZX Drainage of Right Upper Lung Lobe, Via Natural or Artificial Opening Endoscopic, Diagnostic (ICD-10-PCS; 2024-09-07)
PROC: 0B9J8ZX Drainage of Left Lower Lung Lobe, Via Natural or Artificial Opening Endoscopic, Diagnostic (ICD-10-PCS; 2024-09-09)
PROC: 0B9C8ZX Drainage of Right Upper Lung Lobe, Via Natural or Artificial Opening Endoscopic, Diagnostic (ICD-10-PCS; 2024-09-09)
PROC: 5A0935A Assistance with Respiratory Ventilation, Less than 24 Consecutive Hours, High Flow/Velocity Cannula (ICD-10-PCS; 2024-09-15)
PROC: 5A1955Z Respiratory Ventilation, Greater than 96 Consecutive Hours (ICD-10-PCS; 2024-09-16)
PROC: 0B9F8ZX Drainage of Right Lower Lung Lobe, Via Natural or Artificial Opening Endoscopic, Diagnostic (ICD-10-PCS; 2024-09-16)
PROC: 0B9C8ZX Drainage of Right Upper Lung Lobe, Via Natural or Artificial Opening Endoscopic, Diagnostic (ICD-10-PCS; 2024-09-16)
PROC: 0B9G8ZX Drainage of Left Upper Lung Lobe, Via Natural or Artificial Opening Endoscopic, Diagnostic (ICD-10-PCS; 2024-09-16)
PROC: 0B9D8ZX Drainage of Right Middle Lung Lobe, Via Natural or Artificial Opening Endoscopic, Diagnostic (ICD-10-PCS; 2024-09-16)
PROC: 5A09357 Assistance with Respiratory Ventilation, Less than 24 Consecutive Hours, Continuous Positive Airway Pressure (ICD-10-PCS; 2024-09-16)
PROC: 5A0935A Assistance with Respiratory Ventilation, Less than 24 Consecutive Hours, High Flow/Velocity Cannula (ICD-10-PCS; 2024-09-16)
PROC: 0BH17EZ Insertion of Endotracheal Airway into Trachea, Via Natural or Artificial Opening (ICD-10-PCS; 2024-09-16)
PROC: 0B9J8ZX Drainage of Left Lower Lung Lobe, Via Natural or Artificial Opening Endoscopic, Diagnostic (ICD-10-PCS; 2024-09-18)
PROC: 0B9F8ZX Drainage of Right Lower Lung Lobe, Via Natural or Artificial Opening Endoscopic, Diagnostic (ICD-10-PCS; 2024-09-18)
PROC: 03HY32Z Insertion of Monitoring Device into Upper Artery, Percutaneous Approach (ICD-10-PCS; 2024-09-23)
PROC: B34HZZZ Ultrasonography of Right Upper Extremity Arteries (ICD-10-PCS; 2024-09-23)
PROC: 02HV33Z Insertion of Infusion Device into Superior Vena Cava, Percutaneous Approach (ICD-10-PCS; 2024-09-23)
PROC: B548ZZA Ultrasonography of Superior Vena Cava, Guidance (ICD-10-PCS; 2024-09-23)
PROC: 0B9G8ZX Drainage of Left Upper Lung Lobe, Via Natural or Artificial Opening Endoscopic, Diagnostic (ICD-10-PCS; 2024-09-24)
PROC: 0B110F4 Bypass Trachea to Cutaneous with Tracheostomy Device, Open Approach (ICD-10-PCS; 2024-10-02)
DX: A41.9 Sepsis, unspecified organism (principal); I21.A1 Myocardial infarction type 2; J96.01 Acute respiratory failure with hypoxia; J96.02 Acute respiratory failure with hypercapnia; J15.212 Pneumonia due to Methicillin resistant Staphylococcus aureus; R65.21 Severe sepsis with septic shock; J45.901 Unspecified asthma with (acute) exacerbation; E87.29 Other acidosis; Z68.41 Body mass index [BMI] 40.0-44.9, adult; E87.4 Mixed disorder of acid-base balance; J44.0 Chronic obstructive pulmonary disease with (acute) lower respiratory infection; J44.1 Chronic obstructive pulmonary disease with (acute) exacerbation; Z20.822 Contact with and (suspected) exposure to COVID-19; F17.200 Nicotine dependence, unspecified, uncomplicated; F20.9 Schizophrenia, unspecified; E66.01 Morbid (severe) obesity due to excess calories; E11.9 Type 2 diabetes mellitus without complications; K76.0 Fatty (change of) liver, not elsewhere classified; Z82.49 Family history of ischemic heart disease and other diseases of the circulatory system; Z86.14 Personal history of Methicillin resistant Staphylococcus aureus infection
CPT/HCPCS: 31500; 31646; 36415; 36569; 36600; 36620; 71045; 71275; 76536; 76604; 76857; 76937; 80048; 80053; 80202; 82565; 82805; 82962; 83036; 83605; 83735; 83880; 84439; 84443; 84481; 84484; 85007; 85025; 85027; 85379; 85610; 85652; 85730; 86141; 87040; 87070; 87077; 87081; 87086; 87186; 87205; 87426; 87804; 93005; 93306; 93970; 94002; 94003; 94640; 94660; 94668; 96365; 96368; 96375; 99291; 99292; G0378; J0131; J1450; J1815; J2185; J2248; J2470; J2543; J2704; J3480; J7060

== ENCOUNTER 2025-04-07 09:43 | Inpatient (IN) | payer MEDICARE, MEDICAID ==
[~2025-04-07] VITALS: Ht 175.3 cm; Wt 120.0 kg
--- NOTE | 2025-04-07 10:03 | ED.PDOC ---
Psychiatric HPI Comments This is a 39 year old male BIB mother presenting to the ED with chief complaint of hallucinations and SOB. Mother reports that the patient has been acting bizarre at home for the past 4 days, displaying erratic behavior, aggressiveness, and sleeplessness despite taking his psych medication as directed. Mother relays that the patient has been running in and out of the home, causing a disturbance to his neighbors and patient has been more confused than usual. Mother notes patient had started to experience auditory and visual hallucinations since onset with the patient wanting to fight whatever he is seeing. Mother reports that the patient was previously admitted for pneumonia on 08/31/24, staying in the hospital for 2 months. Patient noted to be 91% on RA, up to 95% with 2L of O2 via NC. Patient reports that he wants to go home and is being aggressive at this time. Chief Complaint: Mental Health Time Seen by MD: 10:03 Primary Care Provider: unknown Reviewed Notes: Nurses Notes, Medications, Allergies Information Source: Patient, Relative (Mother) Mode of Arrival: Ambulatory Severity: Unable to Care for Self, Unable to Control Self Severity of Pain: None Severity of Mental Status: Moderate Severity of Symptoms: Moderate Timing: Days Duration: Since onset Prehospital treatment: None Presents with: Unclear Thinking, Bizarre Behavior Circumstance: Causing a Disturbance History of: Schizophrenia Associated signs and symptoms: Hallucinations, Agitation Past Medical History PAST MEDICAL HISTORY: Unknown Surgical History: Denies all surgeries Family History Family History: Unknown Social History Smoker: Non-Smoker Alcohol: Denies ETOH Use Drugs: Denies Drug Use Lives In: Home Constitutional: denies: chills, diaphoresis, fatigue, fever, malaise, sweats, weakness, others EENTM: denies: blurred vision, double vision, ear bleeding, ear discharge, ear drainage, ear pain, ear ringing, eye pain, eye redness, hearing loss, mouth pain, mouth swelling, nasal discharge, nose bleeding, nose congestion, nose pain, photophobia, tearing, throat pain, throat swelling, voice changes, others Respiratory: denies: cough, hemoptysis, orthopnea, SOB at rest, shortness of breath, SOB with excertion, stridor, wheezing, others Cardiovascular: denies: chest pain, dizzy spells, diaphoresis, Dyspnea on exertion, edema, irregular heart beat, left arm pain, lightheadedness, palpitations, PND, syncope, others Gastrointestinal: denies: abdomen distended, abdominal pain, blood streaked bowels, constipated, diarrhea, dysphagia, difficulty swallowing, hematemesis, melena, nausea, poor appetite, poor fluid intake, rectal bleeding, rectal pain, vomiting, others Genitourinary: denies: burning, dysuria, flank pain, frequency, hematuria, incontinence, penile discharge, penile sore, pain, testicle pain, testicle swelling, urgency, others Neurological: denies: dizziness, fainting, headache, left sided numbness, left sided weakness, numbness, paresthesia, pre-existing deficit, right sided numbness, right sided weakness, seizure, speech problems, tingling, tremors, weakness, others Musculoskeletal: denies: back pain, gout, joint pain, joint swelling, muscle pain, muscle stiffness, neck pain, others Integumetry: denies: bruises, change in color, change in hair/nails, dryness, laceration, lesions, lumps, rash, wounds, others Allergic/Immunocompromised: denies: Difficulty Healing, Frequent Infections, Hives, Itching, others Hematologic/Lymphatic: denies: anemia, blood clots, easy bleeding, easy bruising, swollen glands, others Endocrine: denies: excessive hunger, excessive sweating, excessive thirst, excessive urination, flushing, intolerance to cold, intolerance to heat, unexplained weight gain, unexplained weight loss, others Psychiatric: reports: schizophrenia, sleepless; denies: anxiety, bipolar disorder, depression, hopeless, panic disorder, suicidal, others All Other Systems: Reviewed and Negative Physical Exam General Appearance: Moderate Distress, Normal HEENT: Normal ENT Inspection, Pharynx Normal, TMs Normal Neck: Full Range of Motion, Non-Tender, Normal, Normal Inspection Respiratory: Chest Non-Tender, No Accessory Muscle Use, Other (Coarse breath sounds) Cardiovascular: No Edema, No JVD, No Murmur, No Gallop, Normal Peripheral Pulses, Regular Rate/Rhythm Breast Exam: Deferred Gastrointestinal: No Organomegaly, Non Tender, No Pulsatile Mass, Normal Bowel Sounds, Soft Genitalia: Deferred Pelvic: Deferred Rectal: Deferred Extremities: No calf tenderness, Normal capillary refill, Normal inspection, Normal range of motion, Non-tender, No pedal edema Musculoskeletal : Apperance: Normal Neurologic: Alert, private advisor II-XII nml as Tested, No Motor Deficits, Normal Affect, Normal Mood, No Sensory Deficits Cerebellar Function: Normal Reflexes: Normal Skin: Dry, Normal Color, Warm Peripheral Pulses: 3+ Radial (R), 3+ Radial (L) Lymphatic: No Adenopathy Was a procedure done? Was a procedure done?: No Psych Differential Dx Psych. Differential Dx: Panic Disorder, Schizoprenia X-Ray, Labs, Meds, VS Vital Signs Date Time Temp Pulse Resp B/P (MAP) Pulse Ox O2 Delivery O2 Flow Rate FiO2 04/07/25 09:44 98.4 100 20 115/67 93 98.4 Patient alert. Was hearing voices. Saturation in triage was on the low side. Was placed on oxygen. Denies any symptoms. He does have a history of psychiatric illness. Continues to smoke cigarettes. Possible pneumonitis. Was given steroid. Explained to the family. Continue monitoring Chest XR: [place] [address] Ph: [phone] DIAGNOSTIC IMAGING Diagnostic Imaging Report : [id number] Signed PATIENT: MAGGIE MOFFETT DACCT: [id number] UNIT: [id number] : 1985 LOC: ER ROOM / BED: / AGE / SEX: 39 / M ADM STATUS: REG ER SERVICE 1006 ORDERING PHYSICIAN: ÁNGEL ACHARYA MD PROCEDURE(s): CXRP - CHEST PORTABLE REASON: sob ORDER NUMBER(s): [id number], ACCESSION NUMBER(s): [id number] CHEST RADIOGRAPH Indication: sob Technique: Single frontal view of the chest was obtained COMPARISON: XY CHEST PORTABLE on DOS: 10/12/24, XY CHEST PORTABLE on DOS: 10/11/24, XY CHEST PORTABLE on DOS: 10/10/24, XY CHEST XRAY 1 VIEW on DOS: 10/08/24, XY CHEST PORTABLE on DOS: 10/06/24 FINDINGS: Lines and Tubes: None Lungs: Bibasilar subsegmental atelectasis. Pleura: No effusion. No pneumothorax. Cardiomediastinal contours: Unremarkable Bones: Unremarkable IMPRESSION: Bibasilar subsegmental atelectasis. ATED BY: RAHEEM PASCUAL MD DICTATED DATE/TIME: 04/07/25 1039 SIGNED BY: RAHEEM PASCUAL MD SIGNED DATE/TIME: 04/07/25 1039 CC: Images Reviewed?: Images reviewed and evaluated by me Time of 1ST Reevaluation: 10:59 Reevaluation 1ST: Unchanged Patient Education/Counseling: Diagnosis, Treatment Family Education/Counseling: Diagnosis, Treatment Departure 1 Departure Time of Disposition: 10:21 Impression: Primary Impression: Acute respiratory failure Qualified Codes: J96.01 - Acute respiratory failure with hypoxia Additional Impression: Pneumonitis Disposition: ADMITTED INPATIENT Admit to: Med Surg Condition: Guarded Critical Care Note Critical Care Time?: No Stability Stability form required: No Heart Score Heart Score: Heart Score Response (Comments) Value History N/A 0 EKG N/A 0 Age N/A 0 Risk Factors N/A 0 Troponin N/A 0 Total 0 I personally scribed for ÁNGEL ACHARYA MD ([email or web address]) on 04/07/25 at 10:03. Electronically submitted by Timothy Daily ([email or web address]). I personally scribed for ÁNGEL ACHARYA MD ([email or web address]) on 04/07/25 at 11:06. Electronically submitted by Timothy Daily ([email or web address]). ÁNGEL ACHARYA MD Apr 07, 2025 10:03
--- NOTE | 2025-04-07 10:42 | DVH ---
CHEST RADIOGRAPH Indication: sob Technique: Single frontal view of the chest was obtained COMPARISON: XY CHEST PORTABLE on DOS: 10/12/24, XY CHEST PORTABLE on DOS: 10/11/24, XY CHEST PORTABLE on DOS: 10/10/24, XY CHEST XRAY 1 VIEW on DOS: 10/08/24, XY CHEST PORTABLE on DOS: 10/06/24 FINDINGS: Lines and Tubes: None Lungs: Bibasilar subsegmental atelectasis. Pleura: No effusion. No pneumothorax. Cardiomediastinal contours: Unremarkable Bones: Unremarkable IMPRESSION: Bibasilar subsegmental atelectasis.
[2025-04-07] MEDS: ALBUTEROL SULF 2.5 MG/0.5ML(0.5%) NEB SOLN NEB ONE (12:06)
[2025-04-07] MEDS: IPRATROPIUM BROM 0.5 MG/2.5ML INH SOL NEB ONE (12:06)
[2025-04-07] MEDS ORDERED: MORPHINE SULFATE INJ 2 MG/ml SYRG IV PRN (12:30)
[2025-04-07] MEDS ORDERED: LORazepam 2MG/ML-1ML VIAL IV PRN (12:30)
[2025-04-07] MEDS ORDERED: NITROGLYCERIN 0.4 MG SL TAB SL PRN (12:30)
[2025-04-07] MEDS ORDERED: DOCUSATE SOD 100 MG CAP PO PRN (12:30)
[2025-04-07] MEDS ORDERED: ONDANSETRON HCL 4 MG/2 ML VIAL IV PRN (12:30)
--- NOTE | 2025-04-07 12:30 | DVHHP2 ---
History of Present Illness Reason for Visit: psychosis History of Present Illness 39 yr old male unknown pmh unable to get surgical history History is limited as patient is minimally cooperative, only stating that he wants restraints removed and to go home. Most history obtained from ED records and mother. Patient brought to the ED by his mother due to worsening bizarre behavior over the past four days. Mother reports increased confusion, erratic and aggressive behavior despite reported adherence to psychiatric medications, including running in and out of the home and causing disturbances with neighbors. She notes that the patient has been experiencing auditory and visual hallucinations and has been more aggressive than baseline. Past history includes a psychiatric admission in August for approximately two months following pneumonia. while In the ED: Patient was noted to be 95% on 2 L nasal cannula, improved to 98% on same oxygen flow. CBC notable for WBC 10.9, CMP unremarkable. Chest X-ray showed chronic changes but no acute pathology. Patient was administered Benadryl, haldol, ativan placed in restraints due to agitation, and psychiatry was consulted for evaluation. Past Medical History See HPI above Past Surgical History See HPI above Family History Unable to assess due to mental status Past Social History Unable to assess due to mental status Review of Systems Constitutional: No: Fever, Chills, Sweats, Weakness, Malaise, Other Eyes: No: Pain, Vision change, Conjunctivae inflammation, Eyelid inflammation, Other, Redness ENT: No: Ear pain, Ear discharge, Nose pain, Nose discharge, Nose congestion, Mouth pain, Mouth swelling, Throat pain, Throat swelling, Other Respiratory: No: Cough, Dry, Shortness of breath, SOB with excertion, Wheezing, Hemoptysis, Pleuritic Pain, Sputum, Wheezing, Other Cardiovascular: No: Chest Pain, Palpitations, Orthopnea, Paroxysmal Noc. Dyspnea, Edema, Lt Headedness, Other Gastrointestinal: No: Nausea, Vomiting, Abdominal Pain, Diarrhea, Constipation, Melena, Hematochezia, Other Genitourinary: No Dysuria, No Frequency, No Incontinence, No Hematuria, No Retention, No Other Musculoskeletal: No: other, neck pain, shoulder pain, arm pain, back pain, hand pain, leg pain, foot pain Skin: No: Rash, Lesions, Jaundice, Bruising, Other Neurological: Confusion; No: Weakness, Numbness, Incoordination, Change in speech, Seizures, Other Allergies: Coded Allergies: NO KNOWN ALLERGIES (Unverified , 09/01/24) Exam Vital Signs Vital Signs Date Time Temp Pulse Resp B/P (MAP) Pulse Ox O2 Delivery O2 Flow Rate FiO2 04/07/25 12:06 20 91 Room Air* 0 21 04/07/25 12:00 90 04/07/25 09:44 98.4 115/67 98.4 General Appearance: Alert, Other (pyschosis) HEENT: Atraumatic, PERRLA, EOMI, Mucous membr. moist/pink Respiratory: Clear to auscultation, Normal air movement Cardiovascular: Regular rate, Normal S1, Normal S2, No murmurs Abdominal: Normal bowel sounds, Soft, No tenderness, No hepatospenomegaly, No masses Extremities: No clubbing, No cyanosis, No edema, Normal pulses, No tenderness/swelling Skin: No rashes, No breakdown, No significant lesion Neuro: Other (neuro non focal ) Labs/Xrays Chest x-ray shows atelectasis I reviewed labs, imaging CT scan abdomen pelvis, EKG and all diagnostic studies on this patient from ED records and the medical chart SEPSIS Sepsis Screen Date sepsis recognized/suspect: Apr 07, 2025 Time Sepsis recognized/suspect: 947 Recent Procedure: No On Antibiotic Therapy: No Respiratory Rate >20: Yes Heart Rate >90: No Temp<36 C (96.8 F) or >38.3 C: No SBP <90 or MAP <65 mmHG: No New Acute Mental Status Change: No Is the patient on CPAP, BIPAP,: No Physician Orders Chest Portable (04/07/25 10:06) Vital Signs Date Time Temp Pulse Resp B/P (MAP) Pulse Ox O2 Delivery O2 Flow Rate FiO2 04/07/25 12:06 20 91 Room Air* 0 21 04/07/25 12:00 90 04/07/25 09:44 98.4 100 20 115/67 93 98.4 Assessment/Plan Assessment/Plan 39 yr old male with Acute psychosis with agitation and hallucinations requires inpatient psychiatric evaluation and stabilization. Acute psychosis with agitation ordered ct scan brain fu results Psychiatry consult for evaluation and possible inpatient psych admission Continue psychiatric medication reconciliation when possible Monitor for safety; maintain restraints if required to prevent harm to s elf/others PRN medications for agitation lorazepam ordered tele psych consult fu results acute Hallucinations, auditory and visual Monitor for changes in mental status Rule out underlying metabolic or infectious causes ordered UA, thyroid studies, B12/folate, toxicology screen mild Hypoxia (resolved with O?) cxr shows atelectasis Wean oxygen as tolerated Consider further pulmonary workup if hypoxia persists ABG, and or chest CT incentive spirometer chronic problems Schizophrenia / chronic psychosis History of pneumonia FEN / PPx Fluids: IV as tolerated Electrolytes: Monitor and replace as needed Nutrition: Regular diet DVT Prophylaxis: lovenox GI Prophylaxis: Not indicated unless prolonged NPO Disposition Admit to psychiatric unit if medically cleared; continue safety monitoring and restraints as needed until stable. Plan discussed with: Patient Date of Service: Apr 07, 2025 Billing Provider: ROSIO DAMON DNP Common Visit Codes: [id number] INP/OBS CARE (HIGH) ROSIO DAMON DNP Apr 07, 2025 12:30
[2025-04-07] MEDS: HALOPERIDOL LACTATE 5 MG/ML INJ VIAL IM ONE (13:28)
[2025-04-07] MEDS: LORazepam 2MG/ML-1ML VIAL IM ONE (13:29)
[2025-04-07] MEDS: diphenhdrAMINE HCL 50 MG/1 ML VL IM ONE (13:29)
[2025-04-07] MEDS: LORazepam 2MG/ML-1ML VIAL ONE (13:29)
[2025-04-07] MEDS: diphenhdrAMINE HCL 50 MG/1 ML VL ONE (13:30)
[2025-04-07] MEDS: HALOPERIDOL LACTATE 5 MG/ML INJ VIAL ONE (13:30)
--- NOTE | 2025-04-07 14:47 | DVH ---
CT HEAD WITHOUT CONTRAST INDICATION: eval for acute psychosis EXAM DATE: 04/07/2025 02:18 PM COMPARISON: None RADIATION DOSE: CTDIvol: 53 mGy, DLP: 1028 mGy*cm PROCEDURE: CT scans of the head were obtained from the vertex to the skull base. Sagittal and coronal reconstructions were provided. All CT scans at this medical facility are performed using dose modulation techniques as appropriate t o a performed exam including the following: Automated exposure control was utilized; adjustment of th e MA and/or KV according to patient size; and use of iterative reconstruction technique. FINDINGS: The brainshows normal morphology and harry-white matter differentiation, without intracra nial hemorrhage, extra-axial fluid collection, mass effect or acute large vessel infarct. The ventric les are normal in size. The basal cisterns are patent. The skull and visible facial bones are intact. The paranasal sinuses, mastoid air cells and middle ear cavities are well-aerated. The soft tissues of the scalp are unremarkable. IMPRESSION: No acute intracranial abnormality.
[2025-04-07 15:41] VITALS: PULSE 87; RESP 16; O2SAT 93
[2025-04-07 21:00] VITALS: BP 123/77; PULSE 82; RESP 19; TEMP 97.9; O2SAT 94
[2025-04-07] MEDS: SODIUM CHLORIDE 0.9% 1,000 ML IV SCH (22:30)
[2025-04-08 01:00] VITALS: BP 110/65; PULSE 68; RESP 16; TEMP 98; O2SAT 96
[2025-04-08 05:00] VITALS: BP 126/86; PULSE 63; RESP 16; TEMP 97.9; O2SAT 96
[2025-04-08 06:31] LABS: Hematocrit 46.1 % (41.0-53.0); Hemoglobin 15.7 g/dL (13.5-17.5); Mean Corpuscular Hemoglobin 30.6 pg (28.0-32.0); Mean Corpuscular Volume 90.2 fL (80.0-100.0); Nucleated Red Blood Cells % 0.4 %
[2025-04-08 06:54] LABS: Alanine Aminotransferase 11 U/L (7-40); Alkaline Phosphatase 95 U/L (46-116); Anion Gap 8 (5-15); BUN/Creatinine Ratio 9.6 (10.0-20.0); Blood Urea Nitrogen 9 mg/dL (9-23); Calcium 9.5 mg/dL (8.7-10.4); Carbon Dioxide 26 mmol/L (20-31); Chloride 106 mmol/L (98-107); Glucose 93 mg/dL (74-106); Potassium 4.1 mmol/L (3.5-5.1); Sodium 140 mmol/L (136-145); Total Protein 6.6 g/dL (5.7-8.2)
[2025-04-08 06:55] LABS: Albumin 4.2 g/dL (3.2-4.8); Bilirubin, Total 0.4 mg/dL (0.2-1.0)
[2025-04-08 08:00] VITALS: PULSE 68; RESP 17
[2025-04-08 09:00] VITALS: BP 117/81; PULSE 67; RESP 18; TEMP 98; O2SAT 100
--- NOTE | 2025-04-08 09:55 | DVHINCON2 ---
Date of Service if different f: Apr 08, 2025 Time of Service: 09:54 Consultation ([facility]) Labs Laboratory Tests Test 04/08/25 05:43 White Blood Count 10.6 10^3/uL (4.4-10.8) Red Blood Count 5.11 10^6/uL (4.5-5.90) Hemoglobin 15.7 g/dL (13.5-17.5) Hematocrit 46.1 % (41.0-53.0) Mean Corpuscular Volume 90.2 fL (80.0-100.0) Mean Corpuscular Hemoglobin 30.6 pg (28.0-32.0) Mean Corpuscular Hemoglobin Concent 34.0 g/dL (32.0-36.0) Red Cell Distribution Width 16.3 % (11.8-14.3) Platelet Count 236 10^3/uL (140-450) Mean Platelet Volume 8.8 fL (6.9-10.8) Neutrophils (%) (Auto) 58.2 % (37.0-80.0) Lymphocytes (%) (Auto) 32.9 % (10.0-50.0) Monocytes (%) (Auto) 6.7 % (0.0-12.0) Eosinophils (%) (Auto) 1.7 % (0.0-7.0) Basophils (%) (Auto) 0.5 % (0.0-2.0) Neutrophils # (Auto) 6.2 10 ^3/uL (1.6-8.6) Lymphocytes # (Auto) 3.5 10 ^3/uL (0.4-5.4) Monocytes # (Auto) 0.7 10 ^3/uL (0-1.3) Eosinophils # (Auto) 0.2 10 ^3/uL (0-0.8) Basophils # (Auto) 0.1 10 ^3/uL (0-0.2) Nucleated Red Blood Cells 0.4 % Sodium Level 140 mmol/L (136-145) Potassium Level 4.1 mmol/L (3.5-5.1) Chloride Level 106 mmol/L (98-107) Carbon Dioxide Level 26 mmol/L (20-31) Anion Gap 8 (5-15) Blood Urea Nitrogen 9 mg/dL (9-23) Creatinine 0.94 mg/dL (0.700-1.30) Glomerular Filtration Rate Calc 107 mL/min (>90) BUN/Creatinine Ratio 9.6 (10.0-20.0) Serum Glucose 93 mg/dL (74-106) Calcium Level 9.5 mg/dL (8.7-10.4) Total Bilirubin 0.4 mg/dL (0.2-1.0) Aspartate Amino Transf (AST/SGOT) 25 U/L (13-40) Alanine Aminotransferase (ALT/SGPT) 11 U/L (7-40) Alkaline Phosphatase 95 U/L (46-116) Total Protein 6.6 g/dL (5.7-8.2) Albumin 4.2 g/dL (3.2-4.8) Vitals Vital Signs Date Time Temp Pulse Resp B/P (MAP) Pulse Ox O2 Delivery O2 Flow Rate FiO2 04/08/25 05:00 97.9 63 16 126/86 (99) 96 97.9 04/07/25 20:00 Room Air* 0 21 Current medications Current Medications Medications Dose Ordered Sig/Felicitas Route Start Time Stop Time Status Last Admin Dose Admin Sodium Chloride 1,000 ml @ 100 mls/hr Q10H IV 04/07/25 12:30 Ondansetron HCl 4 mg Q4HP PRN IV 04/07/25 12:30 Docusate Sodium 100 mg BIDPRN PRN PO 04/07/25 12:30 Morphine Sulfate 2 mg Q4HPRN PRN IV 04/07/25 12:30 Enoxaparin Sodium 40 mg DAILY SC 04/07/25 12:30 Nitroglycerin 0.4 mg Q5MINP PRN SL 04/07/25 12:30 Lorazepam 1 mg Q6HP PRN IV 04/07/25 12:30 PSYCHIATRY CONSULTATION INITIAL EVALUATION REASON FOR CONSULT: psychosis HPI: 39yo M, history of Schizophrenia, BIBF due to worsening symptoms at home including AH and aggression. On interview, pt gives his name, location, pt says I think it is April or January 2025. Pt does not know why he is in the hospital. Pt says that at home, things were a mess and aggravating him. He says he should be on Depakote and Invega long acting injectable. Has been off meds for some time. Pt wants to go home, does not want to be confined. Pt says his sister brought him to the hospital because she was annoyed by his voice. Pt says he wants to smoke cigarettes, and since he cannot smoke in the hospital, says he wants to go home. Pt asks for author to not speak to his sister, reiterates he just wants to go home. Pt goes on a unclear tangent. Says his sister is special, is scared to wear clothes, says I dont know if she can see where I am. Per reports from family to the primary team, pt has not been sleeping, more aggressive, disorganized, running in and out of the home causing a disturbance in the neighborhood, RTIS wanting to fight unseen entities. PSYCHIATRIC HISTORY: DIAGNOSIS: History of psychosis ADMISSIONS: Reports prior admissions, cannot say when. MEDICATION TRIALS: Says he is on medication at home, this may not be correct. OUTPATIENT CARE: Denies current care SI/SELF-INJURY/SUICIDE ATTEMPT: Denies current SI. SUBSTANCE USE: Denies use of drugs or alcohol. RELEVANT MEDICAL HISTORY: Denies any SOCIAL HISTORY: Lives with his sister. ALLERGIES: Denies any MENTAL STATUS EXAMINATION: 39-year-old male who appears disheveled, suggesting poor self-care. His behavior is disorganized and internally preoccupied, with frequent tangential speech and difficulty remaining on topic. His speech is pressured at times and characterized by loose associations, further reflecting significant disorganization. The patients mood is difficult to ascertain, and his affect is labile. His thought process is illogical and tangential, with unclear themes; he speaks about his sister being scared to wear clothes and questions whether she can see him, reflecting impaired reality testing. He denies auditory or visual hallucinations currently. He is oriented to name and location but is confused about the date, stating I think it is April or January 2025, and lacks understanding of the reason for his hospitalization. Insight is poor, as evidenced by his refusal of care and desire to leave due to smoking restrictio ns, and his judgment is similarly impaired. Cognitively, he shows evidence of poor executive functioning, as reflected in his disorganized and tangential responses. DIFFERENTIAL DIAGNOSIS: Schizophrenia Schizoaffective Disorder Bipolar I Disorder, with psychotic features (less likely) Substance-Induced Psychotic Disorder (less likely) ASSESSMENT: 39-year-old M with a known history of schizophrenia who presents with acute psychiatric decompensation. At home, per report, he is experiencing hallucinations, disorganized behaviors and aggression, and on exam here disorganized thought processes, and impaired insight, all of which are c onsistent with a relapse of his primary psychotic illness. He reports having been off his medications, including Depakote and Invega, for an extended period, which likely contributed to the exacerbation of symptoms. However, his mother reported he has been on meds, yet, still decompensating. Pt lacks the capacity to care for himself in the context of ongoing psychosis and is unable to ensure his own safety or meet basic needs. It does not seem patients family thinks he well enough to return home in his current state. Taken together, these findings indicate that the patient meets criteria for grave disability under and requires psychiatric hospitalization for stabilization and further treatment. RECOMMENDATIONS: 1. LEGAL: Initiate 5150 hold for grave disability wants LPS staff on site. Until then, hold patient on a 1799 hold. 1799 is good for up to 24 hours, and can be renewed for an additional 24 hours need be. 2. DISPOSITION: Transfer to inpatient psychiatric unit. Order 1:1 sitter while at DV. 3. MEDICATIONS: Restart home regimen and defer medication optimization to inpatient psychiatric unit. 4. MEDICAL CONSIDERATIONS -Rule out delirium or other medical causes of psychosis (baseline labs, tox screen, head CT if indicated). -Ensure pt is medically cleared 5. OTHER -Collateral: Coordinate with patient's sister for medication history and baseline functioning. -Psychosocial: Assess housing stability, outpatient psychiatry linkage upon discharge. -Tobacco cessation counseling or nicotine replacement (to manage desire to leave due to smoking). Currently, pt denies wanting Nicotine gum or patch. MERCEDEZ BRANTLEY MD Apr 08, 2025 09:54
[2025-04-08] MEDS: ENOXAPARIN SOD 40 MG/0.4 ML SYRINGE SC SCH (10:00)
[2025-04-08 13:00] VITALS: BP 120/85; PULSE 65; RESP 18; TEMP 97.9; O2SAT 96
--- NOTE | 2025-04-08 17:29 | DVHPN2 ---
Subjective alert/awake/no hallucinations now Changes from previous H/P or p: No Changes Eyes: No Pain, No Vision change, No Conjunctivae inflammation, No Eyelid inflammation, No Other, No Redness ENT: No Ear pain, No Ear discharge, No Nose pain, No Nose discharge, No Nose congestion, No Mouth pain, No Mouth swelling, No Throat pain, No Throat swelling, No Other Cardiovascular: No Chest Pain, No Palpitations, No Orthopnea, No Paroxysmal Noc. Dyspnea, No Edema, No Lt Headedness, No Other Respiratory: No Cough, No Dry, No Shortness of breath, No SOB with excertion, No Wheezing, No Hemoptysis, No Pleuritic Pain, No Sputum, No Other Gastrointestinal: No Nausea, No Vomiting, No Abdominal Pain, No Diarrhea, No Constipation, No Melena, No Hematochezia, No Other Genitourinary: No Dysuria, No Frequency, No Incontinence, No Hematuria, No Retention, No Other Musculoskeletal: No other, No neck pain, No shoulder pain, No arm pain, No back pain, No hand pain, No leg pain, No foot pain Skin: No Rash, No Lesions, No Jaundice, No Bruising, No Other Objective Vitals Vital Signs Date Time Temp Pulse Resp B/P (MAP) Pulse Ox O2 Delivery O2 Flow Rate FiO2 04/08/25 13:00 97.9 65 18 120/85 (97) 96 97.9 04/08/25 08:00 Nasal Cannula* 2 28 General Appearance: Alert, Oriented X3, Cooperative, No acute distress Cardiovascular: Regular rate, Normal S1, Normal S2 Abdomen: Normal bowel sounds, Soft, No tenderness, No hepatospenomegaly Musculoskeletal: Normal sensory function, Normal motor function Neuro: Normal gait, Normal speech, Strength at 5/5 X4 ext, Normal tone, S ensation intact Psych/Mental Status: Mental status NL Medications Current Medications Medications Dose Ordered Sig/Felicitas Route Start Time Stop Time Status Last Admin Dose Admin Docusate Sodium 100 mg BIDPRN PRN PO 04/07/25 12:30 Enoxaparin Sodium 40 mg DAILY SC 04/07/25 12:30 Lorazepam 1 mg Q6HP PRN IV 04/07/25 12:30 Quetiapine Fumarate 200 mg DAILY PO 04/09/25 10:00 Divalproex Sodium 500 mg BID PO 04/08/25 22:00 Clonazepam 0.5 mg BID PO 04/08/25 22:00 UNV Laboratory Results Laboratory Tests 04/08/25 05:43 Chemistry Test 04/08/25 05:43 Albumin 4.2 g/dL (3.2-4.8) Calcium Level 9.5 mg/dL (8.7-10.4) Total Protein 6.6 g/dL (5.7-8.2) LFT Test 04/08/25 05:43 Alanine Aminotransferase (ALT) 11 U/L (7-40) Alkaline Phosphatase 95 U/L (46-116) Aspartate Amino Transferase (AST) 25 U/L (13-40) Total Bilirubin 0.4 mg/dL (0.2-1.0) Labs and/or images reviewed: Labs reviewed by me, Image(s) reviewed by me Assessment/Plan Assessment/Plan schizhophrenia- treat psych input appreciated ambulatory status Plan discussed with: Patient, Other My Orders Orders - AP OLIVO MD Procedure Category Date Status Time Quetiapine Fumarate PHA 04/09/25 In Process Tablet (Seroquel Tab 10:[address] Tablet PHA 04/08/25 In Process (Depakote "Dr" Tabl 22:00 Clonazepam Tablet PHA 04/08/25 Logged (Klonopin Tablet) 17:30 Clonazepam Tablet PHA 04/08/25 Logged (Klonopin Tablet) 22:00 Date of Service: Apr 08, 2025 Billing Provider: AP OLIVO MD Common Visit Codes: [id number] INP/OBS CARE(MOD) AP OLIVO MD Apr 08, 2025 17:29
[2025-04-08] MEDS: clonazePAM 0.5 MG TAB PO ONE (17:34)
[2025-04-08] MEDS: clonazePAM 0.5 MG TAB PO SCH (20:15)
[2025-04-08] MEDS: cefTRIAXone 1GM/50ML D5W 50 ML IV ONE (20:17)
[2025-04-08] MEDS: methylPREDNISolone SOD SUCC 125 MG/2 ML VL IV ONE (20:19)
[2025-04-08 21:00] VITALS: BP 114/63; PULSE 78; RESP 18; TEMP 97.9; O2SAT 94
[2025-04-09 01:00] VITALS: BP 113/75; PULSE 84; RESP 18; TEMP 97.7; O2SAT 95
[2025-04-09] MEDS: LORazepam 0.5 MG TAB PO PRN (04:26)
[2025-04-09 08:00] VITALS: PULSE 16; RESP 16; O2SAT 98
[2025-04-09 09:00] VITALS: BP 126/84; PULSE 74; RESP 14; TEMP 97.8; O2SAT 98
[2025-04-09 13:00] VITALS: BP 104/52; PULSE 81; RESP 18; TEMP 97.6; O2SAT 98
--- NOTE | 2025-04-09 15:34 | DVHPN2 ---
Subjective alert/awake/no hallucinations now/did not talk much today/per sitter krissy agitation Changes from previous H/P or p: No Changes Eyes: No Pain, No Vision change, No Conjunctivae inflammation, No Eyelid inflammation, No Other, No Redness ENT: No Ear pain, No Ear discharge, No Nose pain, No Nose discharge, No Nose congestion, No Mouth pain, No Mouth swelling, No Throat pain, No Throat swelling, No Other Cardiovascular: No Chest Pain, No Palpitations, No Orthopnea, No Paroxysmal Noc. Dyspnea, No Edema, No Lt Headedness, No Other Respiratory: No Cough, No Dry, No Shortness of breath, No SOB with excertion, No Wheezing, No Hemoptysis, No Pleuritic Pain, No Sputum, No Other Gastrointestinal: No Nausea, No Vomiting, No Abdominal Pain, No Diarrhea, No Constipation, No Melena, No Hematochezia, No Other Genitourinary: No Dysuria, No Frequency, No Incontinence, No Hematuria, No Retention, No Other Musculoskeletal: No other, No neck pain, No shoulder pain, No arm pain, No back pain, No hand pain, No leg pain, No foot pain Skin: No Rash, No Lesions, No Jaundice, No Bruising, No Other Objective Vitals Vital Signs Date Time Temp Pulse Resp B/P (MAP) Pulse Ox O2 Delivery O2 Flow Rate FiO2 04/09/25 13:00 97.6 81 18 104/52 (69) 98 97.6 04/09/25 08:00 Room Air* 0 21 Intake/Output Intake and Output 04/09/25 07:00 Intake Total 800 ml Balance 800 ml Intake Oral 800 ml # Voids 1 General Appearance: Alert, Oriented X3, Cooperative, No acute distress Cardiovascular: Regular rate, Normal S1, Normal S2 Abdomen: Normal bowel sounds, Soft, No tenderness, No hepatospenomegaly Musculoskeletal: Normal sensory function, Normal motor function Neuro: Normal gait, Normal speech, Strength at 5/5 X4 ext, Normal tone, S ensation intact Psych/Mental Status: Mental status NL Medications Current Medications Medications Dose Ordered Sig/Felicitas Route Start Time Stop Time Status Last Admin Dose Admin Docusate Sodium 100 mg BIDPRN PRN PO 04/07/25 12:30 Enoxaparin Sodium 40 mg DAILY SC 04/07/25 12:30 Quetiapine Fumarate 200 mg DAILY PO 04/09/25 10:00 04/09/25 09:48 200 MG Divalproex Sodium 500 mg BID PO 04/08/25 22:00 04/09/25 09:49 500 MG Clonazepam 0.5 mg BID PO 04/08/25 22:00 04/09/25 09:49 0.5 MG Lorazepam 1 mg Q8HP PRN PO 04/09/25 04:30 04/09/25 04:26 1 MG Laboratory Results Laboratory Tests 04/08/25 05:43 Labs and/or images reviewed: Labs reviewed by me, Image(s) reviewed by me Assessment/Plan Assessment/Plan schizhophrenia- treat psych input appreciated ambulatory status Plan discussed with: Patient, Other My Orders Orders - AP OLIVO MD Procedure Category Date Status Time Clonazepam Tablet PHA 04/08/25 In Process (Klonopin Tablet) 22:00 Date of Service: Apr 09, 2025 Billing Provider: AP OLIVO MD Common Visit Codes: [id number] INP/OBS CARE (MOD) AP OLIVO MD Apr 09, 2025 15:34
[2025-04-09 17:00] VITALS: BP 118/87; PULSE 70; RESP 16; TEMP 97.4; O2SAT 97
[2025-04-09 20:30] VITALS: BP 111/60; PULSE 88; RESP 18; TEMP 98.4; O2SAT 94
[2025-04-10 02:00] VITALS: BP 136/85; PULSE 98; RESP 18; TEMP 98.6; O2SAT 94
[2025-04-10 05:00] VITALS: BP 115/79; PULSE 79; RESP 19; TEMP 97.7; O2SAT 93
[2025-04-10 09:00] VITALS: BP 121/81; PULSE 67; RESP 19; TEMP 98; O2SAT 96
--- NOTE | 2025-04-10 11:22 | DVHINCON2 ---
Date of Service if different f: Apr 10, 2025 Consultation ([facility]) Progress: Better Labs Laboratory Tests Test 04/08/25 05:43 White Blood Count 10.6 10^3/uL (4.4-10.8) Red Blood Count 5.11 10^6/uL (4.5-5.90) Hemoglobin 15.7 g/dL (13.5-17.5) Hematocrit 46.1 % (41.0-53.0) Mean Corpuscular Volume 90.2 fL (80.0-100.0) Mean Corpuscular Hemoglobin 30.6 pg (28.0-32.0) Mean Corpuscular Hemoglobin Concent 34.0 g/dL (32.0-36.0) Red Cell Distribution Width 16.3 % (11.8-14.3) Platelet Count 236 10^3/uL (140-450) Mean Platelet Volume 8.8 fL (6.9-10.8) Neutrophils (%) (Auto) 58.2 % (37.0-80.0) Lymphocytes (%) (Auto) 32.9 % (10.0-50.0) Monocytes (%) (Auto) 6.7 % (0.0-12.0) Eosinophils (%) (Auto) 1.7 % (0.0-7.0) Basophils (%) (Auto) 0.5 % (0.0-2.0) Neutrophils # (Auto) 6.2 10 ^3/uL (1.6-8.6) Lymphocytes # (Auto) 3.5 10 ^3/uL (0.4-5.4) Monocytes # (Auto) 0.7 10 ^3/uL (0-1.3) Eosinophils # (Auto) 0.2 10 ^3/uL (0-0.8) Basophils # (Auto) 0.1 10 ^3/uL (0-0.2) Nucleated Red Blood Cells 0.4 % Sodium Level 140 mmol/L (136-145) Potassium Level 4.1 mmol/L (3.5-5.1) Chloride Level 106 mmol/L (98-107) Carbon Dioxide Level 26 mmol/L (20-31) Anion Gap 8 (5-15) Blood Urea Nitrogen 9 mg/dL (9-23) Creatinine 0.94 mg/dL (0.700-1.30) Glomerular Filtration Rate Calc 107 mL/min (>90) BUN/Creatinine Ratio 9.6 (10.0-20.0) Serum Glucose 93 mg/dL (74-106) Calcium Level 9.5 mg/dL (8.7-10.4) Total Bilirubin 0.4 mg/dL (0.2-1.0) Aspartate Amino Transf (AST/SGOT) 25 U/L (13-40) Alanine Aminotransferase (ALT/SGPT) 11 U/L (7-40) Alkaline Phosphatase 95 U/L (46-116) Total Protein 6.6 g/dL (5.7-8.2) Albumin 4.2 g/dL (3.2-4.8) Appetite: Very Good Side effects of medications: No Appearance: Stated age Psychomotor activity: WNL Behavioral: Cooperative Eye contact: Appropriate Speech: WNL Affect: Appropriate, Blunted Mood: Euthymic Thought processes: Linear/Goal-directed Thought content: WNL Suicidal ideations: Absent Homicidal ideations: Absent Orientation: Person, Place, Time, Situation Memory intact: Recent Intellect: Average Abstractability: [place] Concentration: Adequate Attention: Adequate Judgement: WNL Insight: Limited Vitals Vital Signs Date Time Temp Pulse Resp B/P (MAP) Pulse Ox O2 Delivery O2 Flow Rate FiO2 04/10/25 08:00 Room Air* 0 21 04/10/25 05:00 97.7 79 19 115/79 (91) 93 97.7 Current medications Current Medications Medications Dose Ordered Sig/Felicitas Route Start Time Stop Time Status Last Admin Dose Admin Docusate Sodium 100 mg BIDPRN PRN PO 04/07/25 12:30 Enoxaparin Sodium 40 mg DAILY SC 04/07/25 12:30 Quetiapine Fumarate 200 mg DAILY PO 04/09/25 10:00 04/10/25 09:07 200 MG Divalproex Sodium 500 mg BID PO 04/08/25 22:00 04/10/25 09:08 500 MG Clonazepam 0.5 mg BID PO 04/08/25 22:00 04/10/25 09:07 0.5 MG Treatment plan discussed: With staff Medication adjusted: Yes Labs ordered: No Psychotherapy provided: No Assessment & Plan: Diagnosis - Schizophrenia. Pt's acute decompensation seems to have been arrested and he appears to be back to his baseline. He is agreeable, more logical, somewhat simplistic in his reasoning, concrete, has limited insight but showing some improvement in judgment vis a vis agreeability to continuing taking his meds at home. At this point pt does not appear to be a DTS/DTO or GD, so transfer to a psychiatric facility is not indicated. The pt can be treated safely in the community. Recommend continuing the current meds the pt is taking with the exclusion of Benzodiazepines (Stop klonopin). Please continue Seroquel and Depakote at the current doses. Please refer to OP psychiatry for follow-up and possible change to risperdal and invega in the community. Please recommend that pt start taking folic acid 1 mg (Depakote is a folate antagonist). Currently, the pt is to be considered cleared from a psychiatric perspective. History of Present Illness Reason for Consult : Psychiatric follow - up. Interval HPI : 89 y/o male BIB family for worsening psychosis, agitation and decompensation of schizophrenia symptoms on 04/07/25. Ot was stable on depakote and invega sustenna in the community in the past. Pt had stopped taking his meds for several months. Pt was admitted to this hospital. Dr. Martinez did the initial psych eval and recommended resumption of home meds. Pt is currently on Depakote 500 bid and Seroquel 200 mg qhs with good effect. Subjective: The pt is oriented x 4 and says that his sister says he can return home if he is cleared by hospital to leave. The pt says he really wants to smoke his 2 cigarettes a day and does not want a nicotine patch because he doesn't like it. Pt reports his mood as euthymic, presents as fairly logical, concrete thought process, some insight, improved judgment and denies any side effects of the meds. Pt also denies any perceptual changes, hallucinations, delusions, SI or HI. Assessment/Diagnosis/Plan Reviewed: Consults, Care Plan, Labs, Medications RUTH THAKKAR MD Apr 10, 2025 11:22
[2025-04-10] MEDS ORDERED: DIVA1TAB58 PO (11:44)
[2025-04-10] MEDS ORDERED: QUET100T47 PO (11:44)
[2025-04-10] MEDS ORDERED: FOLI-119 PO (11:45)
[2025-04-10 12:07] VITALS: BP 124/81; PULSE 67; RESP 16; TEMP 98.8; O2SAT 97
[2025-04-10 13:00] VITALS: BP 107/69; PULSE 63; RESP 19; TEMP 98; O2SAT 94
--- NOTE | 2025-05-03 15:35 | DVHDS2 ---
Discharge Summary Date of Admission Apr 07, 2025 at 12:22 Date of Discharge: Apr 10, 2025 Admitting Diagnosis acute psychosis h/o schizhophrenia Wounds: nil Labs/Diagnostic Data: Laboratory Results Test 04/08/25 05:43 White Blood Count 10.6 10^3/uL (4.4-10.8) Red Blood Count 5.11 10^6/uL (4.5-5.90) Hemoglobin 15.7 g/dL (13.5-17.5) Hematocrit 46.1 % (41.0-53.0) Mean Corpuscular Volume 90.2 fL (80.0-100.0) Mean Corpuscular Hemoglobin 30.6 pg (28.0-32.0) Mean Corpuscular Hemoglobin Concent 34.0 g/dL (32.0-36.0) Red Cell Distribution Width 16.3 % (11.8-14.3) Platelet Count 236 10^3/uL (140-450) Mean Platelet Volume 8.8 fL (6.9-10.8) Neutrophils (%) (Auto) 58.2 % (37.0-80.0) Lymphocytes (%) (Auto) 32.9 % (10.0-50.0) Monocytes (%) (Auto) 6.7 % (0.0-12.0) Eosinophils (%) (Auto) 1.7 % (0.0-7.0) Basophils (%) (Auto) 0.5 % (0.0-2.0) Neutrophils # (Auto) 6.2 10 ^3/uL (1.6-8.6) Lymphocytes # (Auto) 3.5 10 ^3/uL (0.4-5.4) Monocytes # (Auto) 0.7 10 ^3/uL (0-1.3) Eosinophils # (Auto) 0.2 10 ^3/uL (0-0.8) Basophils # (Auto) 0.1 10 ^3/uL (0-0.2) Nucleated Red Blood Cells 0.4 % Sodium Level 140 mmol/L (136-145) Potassium Level 4.1 mmol/L (3.5-5.1) Chloride Level 106 mmol/L (98-107) Carbon Dioxide Level 26 mmol/L (20-31) Anion Gap 8 (5-15) Blood Urea Nitrogen 9 mg/dL (9-23) Creatinine 0.94 mg/dL (0.700-1.30) Glomerular Filtration Rate Calc 107 mL/min (>90) BUN/Creatinine Ratio 9.6 (10.0-20.0) Serum Glucose 93 mg/dL (74-106) Calcium Level 9.5 mg/dL (8.7-10.4) Total Bilirubin 0.4 mg/dL (0.2-1.0) Aspartate Amino Transferase (AST) 25 U/L (13-40) Alanine Aminotransferase (ALT) 11 U/L (7-40) Alkaline Phosphatase 95 U/L (46-116) Total Protein 6.6 g/dL (5.7-8.2) Albumin 4.2 g/dL (3.2-4.8) Other Laboratory Tests 04/08/25 05:43 Brief Hx & Hospital Course: patient is 39 year old male patient with past medical history of schizhophrenia brought by family to er for concerns of bizarre behaviour that was disturbing the neighbours. patient was having visual and auditory hallucinations and acting agitated.pt was evaluated and cletraed by medical team. patient was seen by psychiatrist and meds were adjusted and patient behaviour improved and patient was disvharged home in stable condition after clearance by psychiatry Consults/Reason for consult psychiatry butch markham and Operations or Procedures nil Condition at Discharge: Fair Final Diagnosis/Problems List Acute Psychosis h/o schizhophrenia Discharge Disposition: Home SNF Discharge Will this Physician continue t: No Discharge Instruct/Medications Diet: Regular Activity: No Restrictions, As Tolerated Follow Up/Referral: psyciatry in 1-2 weeks- on reevaluation Medications: depakote 500 mg twice daily folic acid 1 mg daily seroquel 200 mg at bedtime Scheduled Divalproex Sodium (Divalproex Sodium ), 500 MG PO BID Folic Acid (Folic Acid), 1 MG PO DAILY Olanzapine (Olanzapine), 2 TAB PO HS, (Reported) Quetiapine Fumerate (Quetiapine Fumarate), 200 MG PO BID, (Reported) Quetiapine Fumerate (Quetiapine Fumarate), 200 MG PO DAILY Risperidone (Risperidone), 2 MG PO BID, (Reported) Discharge Statement: "Patient was advised to return to the ER or call 911 if any headaches, dizziness, shortness of breath, chest pain, abdominal pain, bleeding, fevers, or worsening of medical condition. Patient was counseled about treatment plan, medications, possible side effects, patientverbalized understanding. All questions were answered to the best of my ability. This discharge took greater then 30 minutes in planning, reviewing documentation, counseling the patient, and discussing with other team members." ASSESSMENT ASSESSMENT Assessment Acute Psychosis Date of Service: Apr 10, 2025 Billing Provider: AP OLIVO MD Common Visit Codes: 33058-MIS/OBS DISCH DAY >30min AP OLIVO MD May 03, 2025 15:35
== END 2025-04-10 15:20 | disposition home or self-care (01) | DRG 885 ==
LOC: ER 09:43 → OVERFLOW 12:22 → EAST 18:43
PROVIDERS: ADMIT Internal Medicine; ATTEND Internal Medicine
DX: F20.9 Schizophrenia, unspecified (principal); J98.11 Atelectasis; J98.4 Other disorders of lung; F17.210 Nicotine dependence, cigarettes, uncomplicated; Z79.899 Other long term (current) drug therapy; Z87.01 Personal history of pneumonia (recurrent); Z91.128 Patient's intentional underdosing of medication regimen for other reason
CPT/HCPCS: 36415; 70450; 71045; 80053; 80061; 82306; 82607; 83036; 84443; 85025; 86704; 86706; 86708; 86803; 87340; G0378

== ENCOUNTER → 2025-04-07 | Outpatient (CLI) | payer MEDICARE, MEDICAID ==
[~2025-04-07] MED LIST: DIVA500T13 PO; OLAN15TA31 PO; PALI156I IM; QUET200T45 PO; RISP2TAB62 PO
[2025-04-07 09:43] LABS: Hematocrit 50.6 % (41.0-53.0); Hemoglobin 17.1 g/dL (13.5-17.5); Mean Corpuscular Hemoglobin 30.6 pg (28.0-32.0); Mean Corpuscular Volume 90.4 fL (80.0-100.0); Nucleated Red Blood Cells % 0.1 %
[2025-04-07 11:09] LABS: Alanine Aminotransferase 10 U/L (7-40); Alkaline Phosphatase 106 U/L (46-116); Anion Gap 8 (5-15); BUN/Creatinine Ratio 6.0 (10.0-20.0); Calcium 9.5 mg/dL (8.7-10.4); Carbon Dioxide 26 mmol/L (20-31); Chloride 105 mmol/L (98-107); Glucose 93 mg/dL (74-106); Potassium 4.3 mmol/L (3.5-5.1); Sodium 139 mmol/L (136-145); Total Protein 7.6 g/dL (5.7-8.2)
[2025-04-07 11:10] LABS: Bilirubin, Total 0.4 mg/dL (0.2-1.0); Cholesterol 148 mg/dL (< 200)
[2025-04-07 11:14] LABS: Albumin 4.9 g/dL (3.2-4.8); Blood Urea Nitrogen 6 mg/dL (9-23); HDL Cholesterol 32 mg/dL (40-59); Triglycerides 178 mg/dL (< 150)
[2025-04-08 11:17] LABS: Hepatitis A Total Antibody Positive (Negative); Hepatitis B Surface Antigen Negative (Negative); Hepatitis C Antibody Negative (Negative)
== END | disposition home or self-care (01) ==
LOC: LAB 09:10
PROVIDERS: ATTEND Licensed Practical Nurse
DX: E11.69 Type 2 diabetes mellitus with other specified complication (principal); E55.9 Vitamin D deficiency, unspecified; Z13.1 Encounter for screening for diabetes mellitus; Z13.220 Encounter for screening for lipoid disorders; Z13.29 Encounter for screening for other suspected endocrine disorder; Z00.01 Encounter for general adult medical examination with abnormal findings
CPT/HCPCS: 36415; 80053; 80061; 82306; 82607; 83036; 84443; 85025; 86704; 86706; 86708; 86803; 87340